=== PATIENT | male | born 1930 | race Asian ===

== ENCOUNTER 2016-05-23 23:35 | Emergency (ER) | payer MEDICARE, MEDICAID ==
[~2016-05-23] VITALS: Ht 154.9 cm; Wt 54.4 kg
[2016-05-23] MEDS ORDERED: SORBITOL2000 ML IR (23:47)
[2016-05-23] MEDS ORDERED: LATANOPROST2.5 ML BOTH EYES (23:47)
[2016-05-23] MEDS ORDERED: CALCIUM CARBON500 M1 PO (23:47)
[2016-05-23] MEDS ORDERED: LISINOPRIL5 MG ORAL (23:47)
[2016-05-23] MEDS ORDERED: ATORVASTATIN CA10 MG ORAL (23:47)
[2016-05-23] MEDS ORDERED: VITAMIN D400 INTLU ORAL (23:47)
[2016-05-23] MEDS ORDERED: COLACE100 MG ORAL (23:47)
[2016-05-23] MEDS ORDERED: HYDRALAZINE HCL10 MG ORAL (23:47)
[2016-05-23] MEDS ORDERED: METFORMIN HCL500 M1 ORAL (23:47)
[2016-05-24] MEDS ORDERED: Ketorolac 30mg Inj IV ONE
[2016-05-24 00:16] LABS: BASOPHILS % (AUTO) 0.6 % (0.0-2.0); EOSINOPHILS % (AUTO) 3.7 % (0.0-3.0); LYMPHOCYTES % (AUTO) 21.2 % (20.0-45.0); MEAN CORPUSCULAR VOLUME 87 FL (80-99); MEAN PLATELET VOLUME 5.8 FL (6.5-10.1); MONOCYTES % (AUTO) 12.2 % (1.0-10.0); NEUTROPHILS % (AUTO) 62.3 % (45.0-75.0); PLATELET COUNT 318 K/UL (150-450); RED BLOOD COUNT 4.19 M/UL (4.70-6.10); RED CELL DISTRIBUTION WIDTH 13.2 % (11.6-14.8); WHITE BLOOD COUNT 8.1 K/UL (4.8-10.8)
[2016-05-24 00:27] LABS: ALANINE AMINOTRANSFERASE 8 U/L (3-41); ALBUMIN/GLOBULIN RATIO 1.3 (1.0-2.7); ANION GAP 17 (5-15); ASPARTATE AMINO TRANSFERASE 11 U/L (5-40); CALCIUM 9.4 mg/dL (8.6-10.2); CARBON DIOXIDE 25 mEQ/L (20-30); CHLORIDE 96 mEQ/L (98-107); CREATININE 1.5 mg/dL (0.7-1.2); HEMOLYSIS 7; LIPASE 43 U/L (< 60); POTASSIUM 4.5 mEQ/L (3.4-4.9); SODIUM 138 mEQ/L (135-145)
[2016-05-24 01:01] VITALS: BP 147/87
[2016-05-24 01:24] LABS: APPEARANCE,URINE CLEAR; KETONES,URINE NEGATIVE (NEGATIVE); LEUKOCYTE ESTERASE ,URINE NEGATIVE (NEGATIVE); NITRITE,URINE NEGATIVE (NEGATIVE); PH,URINE 7 (4.5-8.0); PROTEIN,URINE 2+ (NEGATIVE); UROBILINOGEN,URINE NORMAL MG/DL (0.0-1.0)
--- NOTE | 2016-05-24 01:24 | Emergency Room Report ---
History of Present Illness General Chief Complaint: Abdominal Pain Source: Patient, Family Member, Medical Record, EMS Present Illness HPI This is an 85-year-old [place] male with a history of mild dementia. He presents with swelling to the right groin area. His been a chronic problem for many years but worse recently. He also has some pain. Denies any fever chills denies any nausea vomiting. No other complaint. When the son arrived he said patient is been having a mild cough the last few days. No fever or chills. Patient denies any complaint to me. Allergies: Coded Allergies: ATENOLOL (Verified Allergy, Unknown, 05/23/16) LOSARTAN (Verified Allergy, Unknown, 05/23/16) SIMVASTATIN (Verified Allergy, Unknown, 05/23/16) Uncoded Allergies: AMLIODIPINE (Allergy, Unknown, 05/23/16) PENICILLIN (Allergy, Unknown, 05/23/16) Patient History Past Medical History: see triage record, old chart reviewed Past Surgical History: other Pertinent Family History: none Social History: Denies: smoking Immunizations: other Reviewed Nursing Documentation: PMH: Agreed, PSxH: Agreed Nursing Documentation-PMH Hx Hypertension: Yes Hx Diabetes: Yes Review of Systems Eye: Denies: blurred vision, eye pain ENT: Denies: ear pain, nose congestion, throat swelling Respiratory: Denies: cough, shortness of breath Cardiovascular: Denies: chest pain, palpitations Gastrointestinal: Denies: abdominal pain, diarrhea, nausea, vomiting Musculoskeletal: Denies: back pain, joint pain Skin: Denies: rash Neurological: Denies: headache, numbness Endocrine: Denies: increased thirst, increased urine Hematologic/Lymphatic: Denies: easy bruising All Other Systems: negative except mentioned in HPI Physical Exam Vital Signs Date Time Temp Pulse Resp B/P Pulse Ox O2 Delivery O2 Flow Rate FiO2 05/23/16 23:37 98.4 78 16 162/83 96 Room Air vitals with hypertension Sp02 EP Interpretation: reviewed, normal General Appearance: well appearing, no apparent distress, alert Head: normocephalic, atraumatic Eyes: bilateral eye EOMI, bilateral eye PERRL ENT: hearing grossly normal, normal pharynx Neck: full range of motion, supple, no meningismus Respiratory: chest non-tender, lungs clear, normal breath sounds Cardiovascular #1: regular rate, rhythm, no murmur Gastrointestinal: normal bowel sounds, non tender, no mass, no organomegaly, no bruit, non-distended Genitourinary: other - Penis normal. Large right inguinal hernia. Easily reducible. Musculoskeletal: back normal, gait/station normal, normal range of motion Neurologic: alert, oriented x3 Psychiatric: mood/affect normal Skin: warm/dry Medical Decision Making Diagnostic Impression: Primary Impression: Inguinal hernia of right side without obstruction or gangrene Additional Impressions: Bronchitis Proteinuria ER Course Patient with reducible right inguinal hernia. Based on his age, he may not be a surgical candidate. This can be evaluated by a surgeon. He's not coughing here. Lungs are clear. No evidence of pneumonia. We'll discharge home. Lab Results Impression labs unremarkable Chest X-Ray Diagnostic Results EP Interpretation: Yes Findings: no consolidation, no effusion, no pneumothorax, no acute cardiopulmonary disease Number of Views: 1 Last Vital Signs Date Time Temp Pulse Resp B/P Pulse Ox O2 Delivery O2 Flow Rate FiO2 05/24/16 01:01 98.4 80 16 147/87 96 Room Air Status: improved Disposition: HOME, SELF-CARE Condition: Stable Referrals: KEITH SHARMA (PCP) Additional Instructions: Followup your Dr. in 7 days. You may need a referral to see a surgeon for possible surgery. Return if symptom worsen. JUANA KIM M.D. May 24, 2016 01:24
[2016-05-24 02:35] LABS: BACTERIA,URINE OCCASIONAL /HPF; RBC,URINE 0-2 /HPF (0 - 0); SQUAMOUS EPITHELIAL CELL,UR OCCASIONAL /LPF (NONE/OCC); WBC,URINE 0-2 /HPF (0 - 0)
[2016-05-24 03:05] VITALS: BP_SYST 143; BP_SYST 147; BP_DIAS 74; BP_DIAS 87
--- NOTE | 2016-05-24 10:08 | Diagnostic Imaging Report ---
Indication: Cough Comparison: None A single view chest radiograph was obtained. Findings: No definite infiltrate or pulmonary vascular congestion identified. The heart is enlarged. The aorta is mildly enlarged consistent with atherosclerotic vascular disease. The bones are osteopenic. Impression: No acute disease
== END 2016-05-24 03:09 | disposition home or self-care (01) ==
LOC: EDBD 23:35 → EMR 23:58
DX: K40.90 Unilateral inguinal hernia, without obstruction or gangrene, not specified as recurrent (principal); J40 Bronchitis, not specified as acute or chronic; R80.9 Proteinuria, unspecified; E11.9 Type 2 diabetes mellitus without complications; I10 Essential (primary) hypertension; Z88.8 Allergy status to other drugs, medicaments and biological substances; Z88.0 Allergy status to penicillin
CPT/HCPCS: 36415; 71010; 80053; 81003; 83690; 85025; 99283; J1885

== ENCOUNTER 2017-10-05 13:19 | Emergency (ER) | payer MEDICARE, MEDICAID ==
[~2017-10-05] VITALS: Ht 157.5 cm; Wt 68.0 kg
[2017-10-05 13:19] VITALS: BP 131/64
[~2017-10-05 13:19] MED LIST: ATORVASTATIN CA10 MG ORAL; CALCIUM CARBON500 M1 PO; COLACE100 MG ORAL; HYDRALAZINE HCL10 MG ORAL; LATANOPROST2.5 ML BOTH EYES; LISINOPRIL5 MG ORAL; METFORMIN HCL500 M1 ORAL; SORBITOL2000 ML IR; VITAMIN D400 INTLU ORAL
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
[2017-10-05 14:35] LABS: APPEARANCE,URINE CLOUDY; BILIRUBIN, URINE NEGATIVE (NEGATIVE); GLUCOSE, URINE (UA) NEGATIVE (NEGATIVE); KETONES,URINE NEGATIVE (NEGATIVE); LEUKOCYTE ESTERASE ,URINE 1+ (NEGATIVE); NITRITE,URINE NEGATIVE (NEGATIVE); PH,URINE 6 (4.5-8.0); PROTEIN,URINE 2+ (NEGATIVE); UROBILINOGEN,URINE NORMAL MG/DL (0.0-1.0)
[2017-10-05 14:37] LABS: COLOR,URINE RED
--- NOTE | 2017-10-05 14:48 | Diagnostic Imaging Report ---
Indication: Altered mental status Technique: Contiguous 5 mm thick transaxial imaging of the head obtained in a Siemens Sensation [address] scanner. Soft tissue and bone windows generated. Automatic Exposure Control was utilized. Total Dose length Product (DLP): 1728.[address] Dose Index Volume (CTDIvol): 70.38,13.06 mGy Comparison: none Findings: There is moderate prominence of the ventricles, basal cisterns, and cerebral sulci consistent with atrophy. Moderate, nonspecific, white matter hypoattenuation is noted throughout the brain consistent with chronic small vessel disease. There is no midline shift, edema, acute hemorrhage, mass effect, or abnormal extra-axial fluid collections. Bones and extra osseous soft tissues are unremarkable. Mucosal thickening demonstrated in the paranasal sinuses. Impression: No acute intracranial bleed, mass effect or edema. Moderate atrophy of the brain. Evidence of chronic small vessel disease involving white matter tracts. Sinusitis The CT scanner at [facility] is accredited by the [employer] and the scans are performed using dose optimization techniques as appropriate to a performed exam including Automatic Exposure control.
--- NOTE | 2017-10-05 14:58 | Diagnostic Imaging Report ---
Indication: Neck pain. Technique: Continuous helical imaging of the cervical spine was obtained transaxially from the skull base to the upper thoracic spine. 2-D coronal and sagittal reformatted images were obtained. Automatic Exposure Control was utilized. Total Dose length Product (DLP): 1728.[address] Dose Index Volume (CTDIvol): 70.38,13.06 mGy Comparison: None Findings: There is no acute fracture or malalignment identified. There is no soft tissue swelling identified. 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 Some of the intervertebral discs show narrowing and osteophytes. Degenerative changes are worst at C5-6 C6-7 and C7-T1. Follow-up MRI may be of benefit. Extensive carotid calcifications are present bilaterally. Loss of cervical lordosis. Mild anterolistheses demonstrated at C3-4 and C4-5. Impression: No acute injury Moderate spondylosis. Follow-up MRI may be of benefit. The CT scanner at [facility] is accredited by the [employer] and the scans are performed using dose optimization techniques as appropriate to a performed exam including Automatic Exposure control.
[2017-10-05 15:00] VITALS: BP 132/62
[2017-10-05 17:00] VITALS: BP 147/78
[2017-10-05 19:00] VITALS: BP 103/60
[2017-10-05 20:12] VITALS: BP 108/50
[2017-10-05 20:15] VITALS: BP 108/50
== END 2017-10-05 20:15 ==
LOC: EDBD 13:19 → EMR 13:40
DX: S09.8XXA Other specified injuries of head, initial encounter (principal); W19.XXXA Unspecified fall, initial encounter; Y92.129 Unspecified place in nursing home as the place of occurrence of the external cause; I10 Essential (primary) hypertension; E11.9 Type 2 diabetes mellitus without complications; F03.90 Unspecified dementia, unspecified severity, without behavioral disturbance, psychotic disturbance, mood disturbance, and anxiety; Z88.0 Allergy status to penicillin; Z88.8 Allergy status to other drugs, medicaments and biological substances
CPT/HCPCS: 70450; 72125; 81003; 99284

== ENCOUNTER 2019-11-03 14:35 | Inpatient (IN) | payer MEDICARE, OTHER ==
[~2019-11-03] VITALS: Ht 182.9 cm; Wt 42.6 kg
[2019-11-03 15:01] VITALS: BP 131/81
[2019-11-03] MEDS ORDERED: NAMENDA5 MG ORAL (15:36)
[2019-11-03] MEDS ORDERED: ASPIRIN81 MG ORAL (15:36)
[2019-11-03] MEDS ORDERED: SENNA LAXATIVE8.6 MG PO (15:36)
[2019-11-03] MEDS ORDERED: HUMALOG100 UNIT/4 SUBQ (15:36)
[2019-11-03 15:45] LABS: BILIRUBIN, URINE NEGATIVE (NEGATIVE); COLOR,URINE PALE YELLOW; GLUCOSE, URINE (UA) NEGATIVE (NEGATIVE); KETONES,URINE NEGATIVE (NEGATIVE); LEUKOCYTE ESTERASE ,URINE NEGATIVE (NEGATIVE); NITRITE,URINE POSITIVE (NEGATIVE); PH,URINE 5 (4.5-8.0); PROTEIN,URINE 2+ (NEGATIVE); UROBILINOGEN,URINE NORMAL MG/DL (0.0-1.0)
[2019-11-03 15:47] LABS: BASOPHILS % (AUTO) 0.5 % (0.0-2.0); EOSINOPHILS % (AUTO) 2.8 % (0.0-3.0); HEMATOCRIT 32.6 % (42.0-52.0); HEMOGLOBIN 10.4 G/DL (14.2-18.0); LYMPHOCYTES % (AUTO) 13.7 % (20.0-45.0); MEAN CORPUSCULAR VOLUME 88 FL (80-99); MONOCYTES % (AUTO) 6.6 % (1.0-10.0); NEUTROPHILS % (AUTO) 76.4 % (45.0-75.0); PLATELET COUNT 353 K/UL (150-450); RED CELL DISTRIBUTION WIDTH 13.7 % (11.6-14.8); WHITE BLOOD COUNT 7.3 K/UL (4.8-10.8)
[2019-11-03 15:53] LABS: APPEARANCE,URINE CLEAR
[2019-11-03 15:55] LABS: INR 0.9 (0.9-1.1)
[2019-11-03 15:57] LABS: ANION GAP 10 mmol/L (5-15); BLOOD UREA NITROGEN 57 mg/dL (7-18); CALCIUM 9.1 MG/DL (8.5-10.1); CARBON DIOXIDE 25 MMOL/L (21-32); CHLORIDE 98 MMOL/L (98-107); CREATININE 1.8 MG/DL (0.55-1.30); POTASSIUM 4.9 MMOL/L (3.5-5.1); SODIUM 133 MMOL/L (136-145)
[2019-11-03 16:14] LABS: ALANINE AMINOTRANSFERASE 13 U/L (12-78); ALBUMIN 3.5 G/DL (3.4-5.0); ALBUMIN/GLOBULIN RATIO 0.9 (1.0-2.7); ALKALINE PHOSPHATASE 85 U/L (46-116); ASPARTATE AMINO TRANSFERASE 14 U/L (15-37); BILIRUBIN,TOTAL 0.2 MG/DL (0.2-1.0); FERRITIN 149 NG/ML (8-388)
--- NOTE | 2019-11-03 16:19 | Diagnostic Imaging Report ---
Indication: Syncope Technique: XRAY Chest 1v Comparison: 05/24/2016 Findings: Heart size within normal limits for AP technique and stable compared to the prior exam. Mediastinal contours are sharp. There are dense atherosclerotic calcifications in the aorta. Probable mitral annular calcifications are also seen. Coronary arterial calcifications are noted. No dense focal consolidation is appreciated. No pleural effusion or pneumothorax. No radiographic evidence to suggest pulmonary edema. Bones are demineralized and there are degenerative changes in the spine. No acute osseous abnormality. Impression: No definite radiographic evidence of acute cardiopulmonary disease. Atherosclerotic disease and coronary arterial calcification.
--- NOTE | 2019-11-03 16:58 | Emergency Room Report ---
History of Present Illness General Chief Complaint: Syncope Source: Medical Record, EMS Present Illness HPI 88-year-old male presents the ED status post syncopal episode. Brought in by EMS from senior care facility. Witnessed syncopal episode while in bathroom. No head injury. Patient hypotensive initially. Given IV fluids. BP improved. Patient limited communication but can state his name. Denies pain. Does not appear in distress. No reported fevers or chills. No other aggravating relieving factors. 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 COVID-19 Screening: Negative COVID-19 COVID-19 Testing Source: 10/20/19 Patient History Past Medical History: DM, HTN Past Surgical History: none Pertinent Family History: none Social History: Denies: smoking, alcohol use, drug use Immunizations: UTD Reviewed Nursing Documentation: PMH: Agreed; PSxH: Agreed Nursing Documentation-PMH Past Medical History: No History, Except For Hx Hypertension: Yes Hx Diabetes: Yes Review of Systems All Other Systems: negative except mentioned in HPI Physical Exam Vital Signs Date Time Temp Pulse Resp B/P (MAP) Pulse Ox O2 Delivery O2 Flow Rate FiO2 11/03/19 14:36 98.1 80 18 126/84 (98) 100 Room Air Sp02 EP Interpretation: reviewed, normal General Appearance: no apparent distress, GCS 15, non-toxic, cachetic Head: normocephalic, atraumatic Eyes: bilateral eye normal inspection, bilateral eye PERRL ENT: hearing grossly normal, normal pharynx, no angioedema, normal voice Neck: full range of motion, supple/symm/no masses Respiratory: chest non-tender, lungs clear, normal breath sounds, speaking full sentences Cardiovascular #1: regular rate, rhythm, no edema Cardiovascular #2: 2+ carotid (R), 2+ carotid (L), 2+ radial (R), 2+ radial (L) , 2+ dorsalis pedis (R), 2+ dorsalis pedis (L) Gastrointestinal: normal bowel sounds, non tender, soft, non-distended, no guarding, no rebound Rectal: deferred Genitourinary: normal inspection, no CVA tenderness Musculoskeletal: back normal, normal range of motion, gait/station normal, non- tender Neurologic: alert, motor strength/tone normal, oriented x3, sensory intact, responsive, speech normal Psychiatric: other - nonverbal Reflexes: 3+ bicep (R), 3+ bicep (L), 3+ tricep (R), 3+ tricep (L), 3+ knee (R) , 3+ knee (L) Skin: other - see nursing notes Lymphatic: no adenopathy Medical Decision Making Diagnostic Impression: Primary Impression: Syncope Qualified Codes: R55 - Syncope and collapse Additional Impressions: Renal insufficiency UTI (urinary tract infection) Qualified Codes: N39.0 - Urinary tract infection, site not specified ER Course Hospital Course 88-year-old M presents ED s/p syncopal episode. iinitially hypotensive and improved with IVFs Differential diagnoses include: WI/unstable angina, arrythmia, dehydration Clinical course Patient placed on stretcher. on monitor and storage bin tender. in isolation. i wore full PPE. After initial history and physical I ordered labs, EKG, chest x-ray, IVFs labs reviewed- no leukocytosis, hemoglobin/hematocrit ok, BUN/Cr eleavted, trop negatie, UA + bacteria, lactic 2 COVID negative EKG- afib no acute ischemic changes interpreted by me Chest x-ray- no acute process Patient's BP stable during ED course. Given IV fluids. Given maintenance fluids. Given antibiotics. Case discussed with Dr. Spencer and he agreed to accept the patient to his service for further care and support I. I feel this is a highly complex case requiring extensive working including EKG/Rhythm strip, Xray/CT/US, Blood/urine lab work, repeat exams while in ED, and administration of strong opiates/narcotics for pain control, admission to hospital or close patient follow up. Diagnosis - syncope, renal insufficiency, UTI admitted to telemetry in serious condition Laboratory Tests Test 11/03/19 15:25 White Blood Count 7.3 K/UL (4.8-10.8) Red Blood Count 3.70 M/UL (4.70-6.10) L Hemoglobin 10.4 G/DL (14.2-18.0) L Hematocrit 32.6 % (42.0-52.0) L Mean Corpuscular Volume 88 FL (80-99) Mean Corpuscular Hemoglobin 28.0 PG (27.0-31.0) Mean Corpuscular Hemoglobin Concent 31.9 G/DL (32.0-36.0) L Red Cell Distribution Width 13.7 % (11.6-14.8) Platelet Count 353 K/UL (150-450) Mean Platelet Volume 5.4 FL (6.5-10.1) L Neutrophils (%) (Auto) 76.4 % (45.0-75.0) H Lymphocytes (%) (Auto) 13.7 % (20.0-45.0) L Monocytes (%) (Auto) 6.6 % (1.0-10.0) Eosinophils (%) (Auto) 2.8 % (0.0-3.0) Basophils (%) (Auto) 0.5 % (0.0-2.0) Prothrombin Time 10.5 SEC (9.30-11.50) Prothromb Time International Ratio 0.9 (0.9-1.1) Activated Partial Thromboplast Time 27 SEC (23-33) D-Dimer 1.78 mg/L FEU (0.00-0.49) H Urine Color Pale yellow Urine Appearance Clear Urine pH 5 (4.5-8.0) Urine Specific [place] 1.020 (1.005-1.035) Urine Protein 2+ (NEGATIVE) H Urine Glucose (UA) Negative (NEGATIVE) Urine Ketones Negative (NEGATIVE) Urine Blood 1+ (NEGATIVE) H Urine Nitrite Positive (NEGATIVE) H Urine Bilirubin Negative (NEGATIVE) Urine Urobilinogen Normal MG/DL (0.0-1.0) Urine Leukocyte Esterase Negative (NEGATIVE) Urine RBC 0-2 /HPF (0 - 0) H Urine WBC 0 /HPF (0 - 0) Urine Squamous Epithelial Cells Occasional /LPF Urine Bacteria Occasional /HPF (NONE) Sodium Level 133 MMOL/L (136-145) L Potassium Level 4.9 MMOL/L (3.5-5.1) Chloride Level 98 MMOL/L (98-107) Carbon Dioxide Level 25 MMOL/L (21-32) Anion Gap 10 mmol/L (5-15) Blood Urea Nitrogen 57 mg/dL (7-18) H Creatinine 1.8 MG/DL (0.55-1.30) H Estimat Glomerular Filtration Rate 35.9 mL/min (>60) Glucose Level 179 MG/DL (74-106) H Lactic Acid Level 2.00 mmol/L (0.4-2.0) Calcium Level 9.1 MG/DL (8.5-10.1) Ferritin 149 NG/ML (8-388) Total Bilirubin 0.2 MG/DL (0.2-1.0) Aspartate Amino Transf (AST/SGOT) 14 U/L (15-37) L Alanine Aminotransferase (ALT/SGPT) 13 U/L (12-78) Alkaline Phosphatase 85 U/L (46-116) Troponin I 0.013 ng/mL (0.000-0.056) C-Reactive Protein, Quantitative < 0.4 mg/dL (0.00-0.90) Pro-B-Type Natriuretic Peptide 950 pg/mL (0-125) H Total Protein 7.3 G/DL (6.4-8.2) Albumin 3.5 G/DL (3.4-5.0) Globulin 3.8 g/dL Albumin/Globulin Ratio 0.9 (1.0-2.7) L EKG Diagnostic Results Rate: normal Rhythm: other - afib ST Segments: no acute changes ASA given to the pt in ED: No Rhythm Strip Diag. Results EP Interpretation: yes Rhythm: no PVC's, no ectopy Chest X-Ray Diagnostic Results Chest X-Ray Diagnostic Results : Chest X-Ray Ordered: Yes # of Views/Limited/Complete: 1 View Indication: Other EP Interpretation: Yes Interpretation: no consolidation, no effusion, no pneumothorax, no acute cardiopulmonary disease Impression: No acute disease Electronically Signed by: Electronically signed by Jose J Vásquez MD Last Vital Signs Date Time Temp Pulse Resp B/P (MAP) Pulse Ox O2 Delivery O2 Flow Rate FiO2 11/03/19 15:01 98.3 74 18 131/81 99 Room Air Status: improved Disposition: ADMITTED INPATIENT Condition: Serious Referrals: Darren Spencer MD (PCP) Jose J Vásquez MD Nov 03, 2019 16:58
[2019-11-03] MEDS ORDERED: Albuterol/Ipratropium 3ml neb HHN PRN (17:45)
[2019-11-03] MEDS: Memantine 5 MG TAB ORAL SCH (18:07)
[2019-11-03 18:38] VITALS: BP 121/60
[2019-11-03 20:00] VITALS: BP 129/72
[2019-11-03] MEDS ORDERED: Vancomycin 1.25gm/NS Premix q24h IVPB SCH (20:00)
[2019-11-03] MEDS: NovoLOG Insulin Flexpen SUBQ SCH (20:23)
[2019-11-03] MEDS: Heparin 5000 units/ml inj SUBQ SCH (20:31)
[2019-11-03] MEDS ORDERED: Cefepime HCl 2 GM in D5W 110 ML IV SCH (21:00)
[2019-11-04] VITALS: BP 112/70
[2019-11-04] MEDS ORDERED: Vancomycin 1 GM in D5W 275 ML IV SCH (00:30)
[2019-11-04 04:00] VITALS: BP 154/65
[2019-11-04] MEDS: NovoLOG Insulin Flexpen SUBQ SCH ×4 (05:24→21:40)
[2019-11-04 07:32] LABS: BASOPHILS % (AUTO) 1.1 % (0.0-2.0); HEMATOCRIT 34.8 % (42.0-52.0); HEMOGLOBIN 10.9 G/DL (14.2-18.0); LYMPHOCYTES % (AUTO) 21.4 % (20.0-45.0); MEAN CORPUSCULAR VOLUME 89 FL (80-99); MONOCYTES % (AUTO) 8.3 % (1.0-10.0); NEUTROPHILS % (AUTO) 65.3 % (45.0-75.0); PLATELET COUNT 349 K/UL (150-450); RED BLOOD COUNT 3.92 M/UL (4.70-6.10); RED CELL DISTRIBUTION WIDTH 13.3 % (11.6-14.8); WHITE BLOOD COUNT 6.2 K/UL (4.8-10.8)
[2019-11-04 08:00] VITALS: BP 133/67
[2019-11-04 08:19] LABS: ALANINE AMINOTRANSFERASE 19 U/L (12-78); ALBUMIN 3.3 G/DL (3.4-5.0); ALBUMIN/GLOBULIN RATIO 0.8 (1.0-2.7); ALKALINE PHOSPHATASE 80 U/L (46-116); ANION GAP 11 mmol/L (5-15); ASPARTATE AMINO TRANSFERASE 18 U/L (15-37); BILIRUBIN,TOTAL 0.3 MG/DL (0.2-1.0); BLOOD UREA NITROGEN 39 mg/dL (7-18); CALCIUM 8.7 MG/DL (8.5-10.1); CARBON DIOXIDE 21 MMOL/L (21-32); CHLORIDE 105 MMOL/L (98-107); CREATININE 1.6 MG/DL (0.55-1.30); POTASSIUM 4.8 MMOL/L (3.5-5.1); SODIUM 137 MMOL/L (136-145)
[2019-11-04] MEDS: Heparin 5000 units/ml inj SUBQ SCH ×2 (09:11→21:39)
[2019-11-04] MEDS: Memantine 5 MG TAB ORAL SCH ×2 (09:14→18:05)
[2019-11-04 12:00] VITALS: BP 148/78
--- NOTE | 2019-11-04 12:02 | Consultation ---
History of Present Illness General Date patient seen: Nov 04, 2019 Chief Complaint: Syncope Present Illness HPI 88-year-old male with hx of DM, HTN, custodial resident presented to the ED after and syncopal episode. Witnessed syncopal episode while in bathroom. No head injury. Patient was hypotensive initially. BP improved with IV fluids. No other aggravating relieving factors. Pt was found to be dehydrated and is admitted to telemetry for further management. Allergies: Coded Allergies: ATENOLOL (Verified Allergy, Unknown, 05/23/16) LOSARTAN (Verified Allergy, Unknown, 05/23/16) SIMVASTATIN (Verified Allergy, Unknown, 05/23/16) Uncoded Allergies: AMLIODIPINE (Allergy, Unknown, 05/23/16) PENICILLIN (Allergy, Unknown, 05/23/16) Medication History Scheduled Aspirin* (Aspirin*), 81 MG ORAL DAILY, (Reported) Atorvastatin Calcium* (Lipitor*), 10 MG ORAL BEDTIME, (Reported) Docusate Sodium* (Colace*), 250 MG ORAL DAILY, (Reported) Hydralazine Hcl* (Hydralazine Hcl*), 10 MG ORAL EVERY 6 HOURS, (Reported) Latanoprost* (Xalatan*), 1 DROP BOTH EYES BEDTIME, (Reported) Lisinopril (Lisinopril*), 5 MG ORAL DAILY, (Reported) Memantine Hcl* (Namenda*), 5 MG ORAL TWICE A DAY, (Reported) Metformin Hcl* (Metformin Hcl*), 500 MG ORAL TWICE A DAY, (Reported) Sennosides (Senna Laxative), 17.2 MG PO DAILY, (Reported) Vitamin D (Vitamin D3), 1,000 UNITS ORAL DAILY, (Reported) Miscellaneous Medications Calcium Carbonate (Calcium Carbonate), 500 MG PO, (Reported) Insulin Lispro (Humalog), 0 SUBQ, (Reported) Sorbitol Solution (Sorbitol), 2,000 ML IR, (Reported) Patient History Healthcare decision maker N Resuscitation status Advanced Directive on File Past Medical/Surgical History Past Medical/Surgical History: (1) History of hypertension (2) History of diabetes mellitus Review of Systems All Other Systems: negative except mentioned in HPI Physical Exam General Appearance: thin Lines, tubes and drains: peripheral HEENT: normocephalic, atraumatic Neck: non-tender, normal alignment, supple, normal inspection Respiratory/Chest: chest wall non-tender, lungs clear, no respiratory distress , no accessory muscle use Cardiovascular/Chest: normal peripheral pulses, regular rhythm Abdomen: normal bowel sounds, no organomegaly, no mass Extremities: normal range of motion, non-tender Skin Exam: normal pigmentation, warm/dry 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, no motor/sensory deficits Last 24 Hour Vital Signs Date Time Temp Pulse Resp B/P (MAP) Pulse Ox O2 Delivery O2 Flow Rate FiO2 11/04/19 09:00 Room Air 11/04/19 08:00 97.5 78 20 133/67 (89) 99 11/04/19 07:28 65 11/04/19 04:00 64 11/04/19 04:00 97.9 82 19 154/65 (94) 99 11/04/19 00:00 72 11/04/19 00:00 99.1 86 19 112/70 (84) 97 11/03/19 23:54 Room Air 11/03/19 20:00 74 11/03/19 20:00 97.5 94 19 129/72 (91) 98 11/03/19 18:38 97.9 83 20 121/60 (80) 100 11/03/19 17:58 97.8 79 18 135/85 98 Room Air 11/03/19 15:01 98.3 74 18 131/81 99 Room Air 11/03/19 14:36 98.1 80 18 126/84 (98) 100 Room Air Intake and Output 11/03/19 11/04/19 19:00 07:00 Output Total 200 ml Balance -200 ml Output Urine Total 200 ml Laboratory Tests Test 11/03/19 15:01 11/03/19 15:25 11/03/19 20:20 11/03/19 21:40 Erythrocyte Sedimentation Rate 105 MM/HR (0-20) H White Blood Count 7.3 K/UL (4.8-10.8) Red Blood Count 3.70 M/UL (4.70-6.10) L Hemoglobin 10.4 G/DL (14.2-18.0) L Hematocrit 32.6 % (42.0-52.0) L Mean Corpuscular Volume 88 FL (80-99) Mean Corpuscular Hemoglobin 28.0 PG (27.0-31.0) Mean Corpuscular Hemoglobin Concent 31.9 G/DL (32.0-36.0) L Red Cell Distribution Width 13.7 % (11.6-14.8) Platelet Count 353 K/UL (150-450) Mean Platelet Volume 5.4 FL (6.5-10.1) L Neutrophils (%) (Auto) 76.4 % (45.0-75.0) H Lymphocytes (%) (Auto) 13.7 % (20.0-45.0) L Monocytes (%) (Auto) 6.6 % (1.0-10.0) Eosinophils (%) (Auto) 2.8 % (0.0-3.0) Basophils (%) (Auto) 0.5 % (0.0-2.0) Prothrombin Time 10.5 SEC (9.30-11.50) Prothromb Time International Ratio 0.9 (0.9-1.1) Activated Partial Thromboplast Time 27 SEC (23-33) D-Dimer 1.78 mg/L FEU (0.00-0.49) H Urine Color Pale yellow Pending Urine Appearance Clear Pending Urine pH 5 (4.5-8.0) Pending Urine Specific [place] 1.020 (1.005-1.035) Pending Urine Protein 2+ (NEGATIVE) H Pending Urine Glucose (UA) Negative (NEGATIVE) Pending Urine Ketones Negative (NEGATIVE) Pending Urine Blood 1+ (NEGATIVE) H Pending Urine Nitrite Positive (NEGATIVE) H Pending Urine Bilirubin Negative (NEGATIVE) Pending Urine Urobilinogen Normal MG/DL (0.0-1.0) Pending Urine Leukocyte Esterase Negative (NEGATIVE) Pending Urine RBC 0-2 /HPF (0 - 0) H Pending Urine WBC 0 /HPF (0 - 0) Pending Urine Squamous Epithelial Cells Occasional /LPF Pending Urine Bacteria Occasional /HPF (NONE) Pending Sodium Level 133 MMOL/L (136-145) L Potassium Level 4.9 MMOL/L (3.5-5.1) Chloride Level 98 MMOL/L (98-107) Carbon Dioxide Level 25 MMOL/L (21-32) Anion Gap 10 mmol/L (5-15) Blood Urea Nitrogen 57 mg/dL (7-18) H Creatinine 1.8 MG/DL (0.55-1.30) H Estimat Glomerular Filtration Rate 35.9 mL/min (>60) Glucose Level 179 MG/DL (74-106) H Lactic Acid Level 2.00 mmol/L (0.4-2.0) Calcium Level 9.1 MG/DL (8.5-10.1) Ferritin 149 NG/ML (8-388) Total Bilirubin 0.2 MG/DL (0.2-1.0) Aspartate Amino Transf (AST/SGOT) 14 U/L (15-37) L Alanine Aminotransferase (ALT/SGPT) 13 U/L (12-78) Alkaline Phosphatase 85 U/L (46-116) Troponin I 0.013 ng/mL (0.000-0.056) C-Reactive Protein, Quantitative < 0.4 mg/dL (0.00-0.90) Pro-B-Type Natriuretic Peptide 950 pg/mL (0-125) H Total Protein 7.3 G/DL (6.4-8.2) Albumin 3.5 G/DL (3.4-5.0) Globulin 3.8 g/dL Albumin/Globulin Ratio 0.9 (1.0-2.7) L POC Whole Blood Glucose Pending Test 11/04/19 05:22 11/04/19 06:37 11/04/19 07:10 11/04/19 11:27 POC Whole Blood Glucose Pending 101 MG/DL (74-106) White Blood Count 6.2 K/UL (4.8-10.8) Red Blood Count 3.92 M/UL (4.70-6.10) L Hemoglobin 10.9 G/DL (14.2-18.0) L Hematocrit 34.8 % (42.0-52.0) L Mean Corpuscular Volume 89 FL (80-99) Mean Corpuscular Hemoglobin 27.7 PG (27.0-31.0) Mean Corpuscular Hemoglobin Concent 31.3 G/DL (32.0-36.0) L Red Cell Distribution Width 13.3 % (11.6-14.8) Platelet Count 349 K/UL (150-450) Mean Platelet Volume 4.8 FL (6.5-10.1) L Neutrophils (%) (Auto) 65.3 % (45.0-75.0) Lymphocytes (%) (Auto) 21.4 % (20.0-45.0) Monocytes (%) (Auto) 8.3 % (1.0-10.0) Eosinophils (%) (Auto) 4.0 % (0.0-3.0) H Basophils (%) (Auto) 1.1 % (0.0-2.0) Sodium Level 137 MMOL/L (136-145) Potassium Level 4.8 MMOL/L (3.5-5.1) Chloride Level 105 MMOL/L (98-107) Carbon Dioxide Level 21 MMOL/L (21-32) Anion Gap 11 mmol/L (5-15) Blood Urea Nitrogen 39 mg/dL (7-18) H Creatinine 1.6 MG/DL (0.55-1.30) H Estimat Glomerular Filtration Rate 41.1 mL/min (>60) Glucose Level 95 MG/DL (74-106) Uric Acid Pending Calcium Level 8.7 MG/DL (8.5-10.1) Total Bilirubin 0.3 MG/DL (0.2-1.0) Aspartate Amino Transf (AST/SGOT) 18 U/L (15-37) Alanine Aminotransferase (ALT/SGPT) 19 U/L (12-78) Alkaline Phosphatase 80 U/L (46-116) Total Creatine Kinase Pending Total Protein 7.3 G/DL (6.4-8.2) Albumin 3.3 G/DL (3.4-5.0) L Globulin 4.0 g/dL Albumin/Globulin Ratio 0.8 (1.0-2.7) L Random Vancomycin Level 16.4 ug/mL Test 11/04/19 11:50 Random Vancomycin Level Pending Microbiology Date/Time Source Procedure Growth Status 11/03/19 15:25 Nasopharynx SARS-CoV-2 RdRp Gene Assay - Final Complete 11/03/19 15:25 Rectum Received Height (Feet): 6 Height (Inches): 0.00 Weight (Pounds): 160 Medications Current Medications Medications (Trade) Dose Ordered Sig/James Route PRN Reason Start Time Stop Time Status Last Admin Dose Admin Acetaminophen (Tylenol) 650 mg Q4H PRN ORAL fever 11/03/19 17:45 12/03/19 17:44 Albuterol/ Ipratropium (Albuterol/ Ipratropium) 3 ml Q4H PRN HHN Shortness of Breath 11/03/19 17:45 11/08/19 17:44 Dextrose (Dextrose 50%) 25 ml Q30M PRN IV Hypoglycemia 11/03/19 18:00 02/01/20 17:59 Dextrose (Dextrose 50%) 50 ml Q30M PRN IV Hypoglycemia 11/03/19 18:00 02/01/20 17:59 Heparin Sodium (Porcine) (Heparin 5000 units/ml) 5,000 units EVERY 12 HOURS SUBQ 11/03/19 21:00 12/18/19 20:59 11/04/19 09:11 Insulin Aspart (NovoLOG) BEFORE MEALS AND HS SUBQ 11/03/19 21:00 02/01/20 20:59 Levofloxacin 50 ml @ 50 mls/hr Q24H IVPB 11/04/19 16:00 11/11/19 15:59 Memantine (Namenda) 5 mg TWICE A DAY ORAL 11/03/19 18:00 12/03/19 17:59 11/04/19 09:14 Ondansetron HCl (Zofran) 4 mg Q6H PRN IVP Nausea & Vomiting 11/03/19 17:45 12/03/19 17:44 Sodium Chloride 1,000 ml @ 100 mls/hr Q10H IV 11/03/19 18:00 12/03/19 17:59 11/03/19 18:05 Temazepam (Restoril) 15 mg HSPRN PRN ORAL Insomnia 11/03/19 17:45 11/10/19 17:44 Vancomycin HCl ([facility] pharmacy to dose) 1 ea DAILY PRN MISC . 11/03/19 18:00 12/03/19 17:59 Vancomycin HCl 750 mg/Sodium Chloride 275 ml @ 183.333 mls/hr ONCE ONCE IVPB 11/04/19 16:00 11/04/19 17:29 Assessment/Plan Problem List: (1) Acute dehydration ICD Codes: E86.0 - Dehydration SNOMED: 0374397, 89315184 (2) Syncope ICD Codes: R55 - Syncope and collapse SNOMED: 293848957, 592601902 Qualifiers: Qualified Codes: R55 - Syncope and collapse (3) History of hypertension ICD Codes: Z86.79 - Personal history of other diseases of the circulatory system SNOMED: 822869470 (4) History of diabetes mellitus ICD Codes: Z86.39 - Personal history of other endocrine, nutritional and metabolic disease SNOMED: 770752099 Assessment/Plan: telemetry monitoring echocardiogram, carotid artery iv hydration fall precaution check electrolytes Cherelle Vera MD Nov 04, 2019 12:02
[2019-11-04 12:10] LABS: CREATINE KINASE 76 U/L (26-308)
--- NOTE | 2019-11-04 13:19 | Diagnostic Imaging Report ---
EXAM: ULTRASOUND US Renal Comp CLINICAL HISTORY: Abnormal renal function. Abdominal discomfort. COMPARISON: None TECHNIQUE: Ultrasound examination of the kidneys includes grayscale images, and color and spectral doppler analysis. FINDINGS: The right kidney measures 8.8 x 3.6 x 3.8 cm and the left kidney measures 7.9 x 4.3 x 3.4 cm. Cortical thickness and echogenicity are within normal limits. There is no hydronephrosis or stone seen bilaterally. Hypoechoic cyst identified at the upper pole of the left kidney. Urinary bladder appears unremarkable. IMPRESSION: LEFT RENAL CYST. NO SIGN OF OBSTRUCTIVE UROPATHY.
[2019-11-04 14:27] LABS: APPEARANCE,URINE CLEAR; BILIRUBIN, URINE NEGATIVE (NEGATIVE); COLOR,URINE PALE YELLOW; GLUCOSE, URINE (UA) NEGATIVE (NEGATIVE); KETONES,URINE NEGATIVE (NEGATIVE); LEUKOCYTE ESTERASE ,URINE NEGATIVE (NEGATIVE); NITRITE,URINE NEGATIVE (NEGATIVE); PH,URINE 5 (4.5-8.0); PROTEIN,URINE NEGATIVE (NEGATIVE); UROBILINOGEN,URINE NORMAL MG/DL (0.0-1.0)
[2019-11-04 16:00] VITALS: BP 125/64
[2019-11-04] MEDS ORDERED: Vancomycin 750mg/NS 275ml IVPB ONE ×2 (16:00)
[2019-11-04] MEDS: Levofloxacin 250mg/D5W 50ml IVPB SCH (17:03)
--- NOTE | 2019-11-04 17:06 | History & Physical ---
History and Physical History & Physicial Dictated for Int Med-Dr Spencer no. [id number] Darren Pineda MD Nov 04, 2019 17:06
--- NOTE | 2019-11-04 17:42 | Cardiology Progress Note ---
Assessment/Plan Assessment/Plan syncoep possibley voluem related will need echo and trop repeated ekg nto changed need head ct in light recednt fall will recent sdh [id number] Objective Last 24 Hour Vital Signs Date Time Temp Pulse Resp B/P (MAP) Pulse Ox O2 Delivery O2 Flow Rate FiO2 11/04/19 15:16 77 20 99 Room Air 21 11/04/19 12:00 89 11/04/19 12:00 97.7 84 18 148/78 (101) 100 11/04/19 09:00 Room Air 11/04/19 08:00 97.5 78 20 133/67 (89) 99 11/04/19 07:28 65 11/04/19 04:00 64 11/04/19 04:00 97.9 82 19 154/65 (94) 99 11/04/19 00:00 72 11/04/19 00:00 99.1 86 19 112/70 (84) 97 11/03/19 23:54 Room Air 11/03/19 20:00 74 11/03/19 20:00 97.5 94 19 129/72 (91) 98 11/03/19 18:38 97.9 83 20 121/60 (80) 100 11/03/19 17:58 97.8 79 18 135/85 98 Room Air Intake and Output 11/03/19 11/04/19 19:00 07:00 Output Total 200 ml Balance -200 ml Output Urine Total 200 ml Laboratory Tests Test 11/03/19 20:20 11/03/19 21:40 11/04/19 05:22 11/04/19 06:37 POC Whole Blood Glucose Pending Pending Urine Color Pending Urine Appearance Pending Urine pH Pending Urine Specific [place] Pending Urine Protein Pending Urine Glucose (UA) Pending Urine Ketones Pending Urine Blood Pending Urine Nitrite Pending Urine Bilirubin Pending Urine Urobilinogen Pending Urine Leukocyte Esterase Pending Urine RBC Pending Urine WBC Pending Urine Squamous Epithelial Cells Pending Urine Bacteria Pending White Blood Count 6.2 K/UL (4.8-10.8) Red Blood Count 3.92 M/UL (4.70-6.10) L Hemoglobin 10.9 G/DL (14.2-18.0) L Hematocrit 34.8 % (42.0-52.0) L Mean Corpuscular Volume 89 FL (80-99) Mean Corpuscular Hemoglobin 27.7 PG (27.0-31.0) Mean Corpuscular Hemoglobin Concent 31.3 G/DL (32.0-36.0) L Red Cell Distribution Width 13.3 % (11.6-14.8) Platelet Count 349 K/UL (150-450) Mean Platelet Volume 4.8 FL (6.5-10.1) L Neutrophils (%) (Auto) 65.3 % (45.0-75.0) Lymphocytes (%) (Auto) 21.4 % (20.0-45.0) Monocytes (%) (Auto) 8.3 % (1.0-10.0) Eosinophils (%) (Auto) 4.0 % (0.0-3.0) H Basophils (%) (Auto) 1.1 % (0.0-2.0) Sodium Level 137 MMOL/L (136-145) Potassium Level 4.8 MMOL/L (3.5-5.1) Chloride Level 105 MMOL/L (98-107) Carbon Dioxide Level 21 MMOL/L (21-32) Anion Gap 11 mmol/L (5-15) Blood Urea Nitrogen 39 mg/dL (7-18) H Creatinine 1.6 MG/DL (0.55-1.30) H Estimat Glomerular Filtration Rate 41.1 mL/min (>60) Glucose Level 95 MG/DL (74-106) Uric Acid 5.7 MG/DL (2.6-7.2) Calcium Level 8.7 MG/DL (8.5-10.1) Total Bilirubin 0.3 MG/DL (0.2-1.0) Aspartate Amino Transf (AST/SGOT) 18 U/L (15-37) Alanine Aminotransferase (ALT/SGPT) 19 U/L (12-78) Alkaline Phosphatase 80 U/L (46-116) Total Creatine Kinase 76 U/L (26-308) Total Protein 7.3 G/DL (6.4-8.2) Albumin 3.3 G/DL (3.4-5.0) L Globulin 4.0 g/dL Albumin/Globulin Ratio 0.8 (1.0-2.7) L Test 11/04/19 07:10 11/04/19 11:27 11/04/19 11:50 11/04/19 14:00 Random Vancomycin Level 16.4 ug/mL 14.1 ug/mL POC Whole Blood Glucose 101 MG/DL (74-106) Urine Color Pale yellow Urine Appearance Clear Urine pH 5 (4.5-8.0) Urine Specific [place] 1.010 (1.005-1.035) Urine Protein Negative (NEGATIVE) Urine Glucose (UA) Negative (NEGATIVE) Urine Ketones Negative (NEGATIVE) Urine Blood 2+ (NEGATIVE) H Urine Nitrite Negative (NEGATIVE) Urine Bilirubin Negative (NEGATIVE) Urine Urobilinogen Normal MG/DL (0.0-1.0) Urine Leukocyte Esterase Negative (NEGATIVE) Urine RBC 5-10 /HPF (0 - 0) H Urine WBC 0 /HPF (0 - 0) Urine Squamous Epithelial Cells Occasional /LPF Urine Bacteria Occasional /HPF (NONE) Urine Eosinophils None seen (NONE SEEN) Urine Osmolality 380 mOsm/kg (429-449) L Urine Random Creatinine Pending Urine Random Microalbumin Pending Urine Random Sodium 119 mmol/L (20-110) H Urine Microalbumin/Creatinine Ratio Pending Microbiology Date/Time Source Procedure Growth Status 11/03/19 15:25 Nasopharynx SARS-CoV-2 RdRp Gene Assay - Final Complete 11/03/19 15:25 Rectum Received Beka Saleh MD Nov 04, 2019 17:42
[2019-11-04 20:00] VITALS: BP 144/66
--- NOTE | 2019-11-04 22:00 | History and Physical Report ---
DATE OF ADMISSION: 11/03/2019 CHIEF COMPLAINT: The patient is an 88-year-old male, who presents with a chief complaint of "I passed out." HISTORY OF PRESENT ILLNESS: The patient is a resident of [facility]. The patient apparently was in the restroom yesterday November 03, 2019. The patient lost consciousness for a few seconds. The patient was caught by staff who was present. The patient denies any injury. The patient presented to [place] emergency room. The patient was found initially to be hypotensive. The patient received intravenous fluids in the emergency room. The patient is admitted with syncopal episode and probable orthostatic. REVIEW OF SYSTEMS: CONSTITUTIONAL: The patient denies weight loss or weight gain. The patient denies fevers or chills. HEENT: The patient denies ear or throat pain. The patient denies headache. CARDIOVASCULAR: The patient denies palpitations or chest pain. CHEST: The patient denies wheezing or shortness of breath. ABDOMINAL: The patient denies nausea, vomiting, diarrhea, or constipation. GENITOURINARY: The patient denies dysuria or increased frequency of urination. NEUROMUSCULAR: The patient complains of syncopal episode as above. The patient denies seizures or generalized weakness. PAST MEDICAL HISTORY: Significant for: 1. Type 2 diabetes. 2. Hypertension. 3. Hypercholesterolemia. 4. Alzheimer's dementia. 5. Glaucoma. PAST SURGICAL HISTORY: Significant for appendectomy. CURRENT MEDICATIONS: 1. Vitamin D 1000 units orally daily. 2. Lisinopril 5 mg p.o. daily. 3. Aspirin 81 mg p.o. daily. 4. Metformin 500 mg 1 tablet p.o. twice daily. 5. 5 mg 1 tablet p.o. twice daily. 6. Calcium carbonate 500 mg p.o. q.6 hours p.r.n. 7. Latanoprost 1 drop in both eyes at bedtime. 8. Atorvastatin 10 mg p.o. at bedtime. 9. Lispro sliding scale. ALLERGIES: 1. Atenolol. 2. Losartan. 3. Simvastatin. SOCIAL HISTORY: The patient is a . The patient is a resident of [facility]. The patient denies tobacco use, having quit greater than 10 years ago. The patient denies alcohol use. PHYSICAL EXAMINATION: VITAL SIGNS: Temperature 98.1, respirations 18, pulse 80, and blood pressure 126/84. GENERAL: The patient is a well-developed, well-nourished, thin appearing, male, in no apparent distress. HEENT: Eyes, pupils equal and responsive to light and accommodation. Extraocular movements are intact NECK: Supple without lymphadenopathy. CHEST: Lungs are clear to auscultation bilaterally without wheezes or rales. CARDIOVASCULAR: Regular rhythm and rate. S1 and S2 normal without murmurs, rubs, or gallops. ABDOMEN: Soft, nontender, and nondistended. Positive bowel sounds. No evidence of hepatosplenomegaly. Currently, no rebound or guarding noted. EXTREMITIES: Negative for clubbing, cyanosis, or edema. RECTAL/GENITAL: Not performed. NEUROLOGIC: Cranial nerves II through XII are grossly intact without focal deficits. Motor strength is 5/5 bilaterally. Deep tendon reflexes are 2+ plantar. LABORATORY STUDIES: WBC 7.8, hemoglobin 10.4, hematocrit 32.6, and platelets 353,000. Sodium 137, potassium 4.8, chloride 105, CO2 21, BUN 39, creatinine 1.6, and glucose 95. Urinalysis showed 2+ blood with 5 to 10 RBCs. Chest x-ray was reported as no acute disease. ASSESSMENT: This is an 88-year-old, male: 1. Syncopal episode. 2. Diabetes type 2. 3. Hypertension. 4. Hypercholesterolemia. 5. Alzheimer's dementia. 6. Glaucoma. TREATMENT: 1. Syncopal episode. This may be secondary to orthostatic hypotension. Cardiology consultation has been obtained with Dr. Beka Saleh. Initial troponin level was within normal limits. We will follow recommendations of Cardiology. 2. Diabetes type 2. NovoLog sliding scale has been instituted. 3. Hypertension. Continue lisinopril as above. 4. Hypercholesterolemia. Continue atorvastatin as above. 5. Alzheimer's dementia. Continue ____ as above. 6. Glaucoma. Continue latanoprost as above. Darren Pineda M.D. DR: Adal JOB#: [id number] CC:
[2019-11-05] VITALS: BP 146/68
--- NOTE | 2019-11-05 01:00 | Consultation ---
DATE OF CONSULTATION: 11/04/2019 CARDIOLOGY CONSULTATION CONSULTING PHYSICIAN: Beka Saleh MD REFERRING PHYSICIAN: Darren Spencer MD REASON FOR REFERRAL: Syncope. HISTORY OF PRESENT ILLNESS: This is an 88-year-old gentleman who is known to me from a recent hospitalization and followup visit in the office. The patient recently had a fall for which he was hospitalized at [facility]. At that fall, the etiology was not found. The patient was observed in the ER. He had a CT scan that showed a small subdural hematoma and he was followed by Neurosurgery for a day or 2 and he eventually was stable enough to be discharged. He did receive some IV fluids during that hospitalization. I was called yesterday from the [facility] that they found him on the floor in the bathroom. Initially, he was nonresponsive for approximately 1 minute and his blood pressure was low in the 60s and eventually he became more alert and his blood pressure did improve. Because of his recent fall and injury to his head, I recommended that he be taken to the emergency room again. He was brought to the emergency room at [facility], where he was evaluated and felt to have had a volume depletion and was admitted to the hospital. The patient at this time denies any chest pain. He actually does not recall the fall at all himself. He does not have any palpitations. No dizziness or lightheadedness at this time. He does admit to having had it some other time. There is no PND. PAST MEDICAL HISTORY: History of rectal cancer that was removed in 2014 at [place]. He is diabetic, hypertensive, anemia, prostatic hypertrophy, diabetic retinopathy, chronic kidney disease, history of vitamin B12 deficiency diagnosed recently, history of urinary incontinence, anemia, and iron deficiency. He is able to be started on some intravenous iron during the last hospitalization, hyperlipidemia, and hypertension. ALLERGIES: He is allergic to penicillin. SOCIAL HISTORY: He quit smoking in , quit alcohol in the 1979. No drugs. He resides at a convalescent facility. 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 MEDICATIONS: His medications are available in the chart and include 81 mg of aspirin and he takes Lipitor 10 mg, calcium carbonate, Colace, hydralazine 10 mg q.6 hours here. He takes insulin. He takes lisinopril 5 mg daily, Namenda 5 mg twice daily, metformin 500 mg twice daily, senna, sorbitol, and vitamin D. PHYSICAL EXAMINATION: GENERAL: Shows to be an elderly gentleman, in no respiratory distress. No evidence of head injury. NECK: Supple. No jugular venous distention. LUNGS: Clear to auscultation and percussion. CARDIAC: S1 is normal. S2 is normal. Regular rate and rhythm. No heaves or thrills noted. ABDOMEN: Soft and nontender. Positive bowel sounds. EXTREMITIES: No clubbing or cyanosis, nor there is any edema. NEUROLOGICAL: He is awake, alert and responsive. LABORATORY AND DIAGNOSTIC DATA: White count of 6.3, hemoglobin 10.9, and platelet count of 349, that is from today. Sedimentation rate of 105, sodium 147, potassium 4.8, chloride 105, bicarb of 21, BUN of 39, and creatinine 1.6. His creatinine was 1.8. Yesterday, he has had creatinine of 1.3 the day before his discharge from [facility]. His coags, INR of 0.9 and PTT of 27. D-dimer 1.78. His urinalysis shows really no WBCs and his chest x-ray that was performed in the emergency room showed no definite evidence of acute cardiopulmonary disease. Atherosclerotic disease of the coronary artery calcification. Renal ultrasound was performed, shows left renal cyst and his EKG shows sinus rhythm, right bundle-branch conduction defect. No significant ST or T-wave abnormalities and this remained unchanged on several EKGs that he has had at this hospitalization. Telemetry data also shows sinus rhythm. ASSESSMENT AND PLAN: 1. Syncopal episode. 2. Hypotension. 3. Recent fall with subdural hematoma. 4. History of colon cancer, status post resection. 5. Iron deficiency. 6. Anemia. 7. B12 insufficiency. 8. Chronic renal insufficiency. 9. Right bundle-branch conduction defect. 10. Diabetes mellitus. RECOMMENDATIONS: Dr. Spencer, the patient was seen in cardiac consultation. The patient should be monitored and echocardiogram will be ordered. He should have CT scan of his head to make sure he does not have any issues with recent subdural hematoma. He does not endorse any signs or symptoms of coronary syndrome. His initial troponin was normal. We will repeat that tomorrow morning as well. He should continue the IV fluids until his creatinine goes back down to the baseline of 1.3, which he had at the time of his prior hospitalization. Beka Saleh M.D. DR: Erika JOB#: [id number] CC:
[2019-11-05 04:00] VITALS: BP 147/78
[2019-11-05] MEDS: NovoLOG Insulin Flexpen SUBQ SCH ×4 (06:17→21:00)
[2019-11-05] MEDS: LORazepam Inj 2mg/ml 1ml IV PRN ×4 (06:44→16:08)
[2019-11-05 08:00] VITALS: BP 116/62
[2019-11-05] MEDS: Memantine 5 MG TAB ORAL SCH ×2 (09:06→17:36)
[2019-11-05] MEDS: Heparin 5000 units/ml inj SUBQ SCH ×2 (09:06→21:34)
[2019-11-05 09:45] LABS: BASOPHILS % (AUTO) 0.7 % (0.0-2.0); EOSINOPHILS % (AUTO) 0.8 % (0.0-3.0); HEMATOCRIT 32.6 % (42.0-52.0); HEMOGLOBIN 10.3 G/DL (14.2-18.0); LYMPHOCYTES % (AUTO) 12.7 % (20.0-45.0); MEAN CORPUSCULAR VOLUME 87 FL (80-99); MONOCYTES % (AUTO) 8.2 % (1.0-10.0); NEUTROPHILS % (AUTO) 77.5 % (45.0-75.0); PLATELET COUNT 334 K/UL (150-450); RED BLOOD COUNT 3.75 M/UL (4.70-6.10); RED CELL DISTRIBUTION WIDTH 12.6 % (11.6-14.8); WHITE BLOOD COUNT 6.4 K/UL (4.8-10.8)
--- NOTE | 2019-11-05 09:59 | Diagnostic Imaging Report ---
EXAM: CT CT Head no Contrast INDICATION: Reason For Exam: SYNCOPE. TECHNIQUE: Axial images of the brain were obtained with subsequent sagittal and coronal reformats. All CT scans at this facility are performed using dose modulation techniques as appropriate to a performed exam including the following: automated exposure control with adjustment of the mA and/or kV according to patient size. COMPARISON STUDY: 10/05/2017 RADIATION DOSE: CTDIvol: 53.4 mGy DLP: 1045.5 mGy-cm Dose information generated by the CT scanner is available in PACS. FINDINGS: There is age related senescent changes with ventricular and sulcal prominence. White matter micro-ischemic changes noted. There is no acute large territory cortical infarct, hemorrhage, mass effect or shift. Ventricles and cisterns as well as brainstem and posterior fossa appear unremarkable. The sellar region is normal. There is fluid in the right mastoid air cells. IMPRESSION: Age related senescent changes. No acute intracranial abnormality. Right sphenoid sinus disease.
[2019-11-05 10:21] LABS: ALANINE AMINOTRANSFERASE 18 U/L (12-78); ALBUMIN 3.4 G/DL (3.4-5.0); ALKALINE PHOSPHATASE 79 U/L (46-116); ANION GAP 10 mmol/L (5-15); ASPARTATE AMINO TRANSFERASE 18 U/L (15-37); BILIRUBIN,TOTAL 0.4 MG/DL (0.2-1.0); BLOOD UREA NITROGEN 27 mg/dL (7-18); CALCIUM 8.5 MG/DL (8.5-10.1); CARBON DIOXIDE 23 MMOL/L (21-32); CHLORIDE 105 MMOL/L (98-107); CREATININE 1.5 MG/DL (0.55-1.30); POTASSIUM 4.7 MMOL/L (3.5-5.1); SODIUM 138 MMOL/L (136-145)
[2019-11-05 12:00] VITALS: BP 105/51
--- NOTE | 2019-11-05 12:00 | Pulmonology Progress Note ---
Subjective ROS Limited/Unobtainable: No Constitutional: Reports: no symptoms HEENT: Repors: no symptoms Allergies: Coded Allergies: ATENOLOL (Verified Allergy, Unknown, 05/23/16) LOSARTAN (Verified Allergy, Unknown, 05/23/16) SIMVASTATIN (Verified Allergy, Unknown, 05/23/16) Uncoded Allergies: AMLIODIPINE (Allergy, Unknown, 05/23/16) PENICILLIN (Allergy, Unknown, 05/23/16) Objective Last 24 Hour Vital Signs Date Time Temp Pulse Resp B/P (MAP) Pulse Ox O2 Delivery O2 Flow Rate FiO2 11/05/19 09:00 Room Air 11/05/19 08:00 97.7 114 18 116/62 (80) 98 11/05/19 08:00 109 11/05/19 04:00 97.7 100 22 147/78 (101) 100 11/05/19 03:35 91 11/05/19 00:00 98.2 95 19 146/68 (94) 97 11/04/19 23:33 64 11/04/19 21:17 Room Air 11/04/19 20:02 79 11/04/19 20:00 95 20 98 Room Air 21 11/04/19 20:00 98.4 97 20 144/66 (92) 97 11/04/19 16:00 97.5 84 20 125/64 (84) 99 11/04/19 15:47 78 11/04/19 15:16 77 20 99 Room Air 21 11/04/19 12:00 89 11/04/19 12:00 97.7 84 18 148/78 (101) 100 Intake and Output 11/04/19 11/05/19 19:00 07:00 Intake Total 120 ml Balance 120 ml Intake Oral 120 ml # Voids 5 General Appearance: no acute distress, cachetic HEENT: normocephalic Respiratory: chest wall non-tender, lungs clear, normal breath sounds Cardiovascular: normal rate, regular rhythm Abdomen: normal bowel sounds Genitourinary: normal external genitalia Extremities: no clubbing Skin: no rash, no lesions Microbiology Date/Time Source Procedure Growth Status 11/03/19 15:25 Blood Blood Culture - Preliminary NO GROWTH AFTER 24 HOURS Resulted 11/03/19 15:10 Blood Blood Culture - Preliminary NO GROWTH AFTER 24 HOURS Resulted 11/03/19 15:25 Nasopharynx SARS-CoV-2 RdRp Gene Assay - Final Complete 11/04/19 14:00 Indwelling Cath Urine Culture - Preliminary NO GROWTH Resulted 11/03/19 15:25 Rectum Received Laboratory Tests 11/04/19 14:00: Urine Color Pale yellow, Urine Appearance Clear, Urine pH 5, Urine Specific Palmer 1.010, Urine Protein Negative, Urine Glucose (UA) Negative, Urine Ketones Negative, Urine Blood 2+H, Urine Nitrite Negative, Urine Bilirubin Negative, Urine Urobilinogen Normal, Urine Leukocyte Esterase Negative, Urine RBC 5-10H, Urine WBC 0, Urine Squamous Epithelial Cells Occasional, Urine Bacteria Occasional, Urine Eosinophils None seen, Urine Osmolality 380L, Urine Random Creatinine [Pending], Urine Random Microalbumin [Pending], Urine Random Sodium 119H, Urine Microalbumin/Creatinine Ratio [Pending] 11/05/19 09:00: White Blood Count 6.4, Red Blood Count 3.75L, Hemoglobin 10.3L, Hematocrit 32.6L , Mean Corpuscular Volume 87, Mean Corpuscular Hemoglobin 27.6, Mean Corpuscular Hemoglobin Concent 31.7L, Red Cell Distribution Width 12.6, Platelet Count 334, Mean Platelet Volume 5.0L, Neutrophils (%) (Auto) 77.5H, Lymphocytes (%) (Auto) 12.7L, Monocytes (%) (Auto) 8.2, Eosinophils (%) (Auto) 0.8, Basophils (%) (Auto) 0.7, Sodium Level 138, Potassium Level 4.7, Chloride Level 105, Carbon Dioxide Level 23, Anion Gap 10, Blood Urea Nitrogen 27H, Creatinine 1.5H, Estimat Glomerular Filtration Rate 44.3, Glucose Level 158H, Calcium Level 8.5, Magnesium Level 1.5L, Total Bilirubin 0.4, Aspartate Amino Transf (AST/SGOT) 18, Alanine Aminotransferase (ALT/SGPT) 18, Alkaline Phosphatase 79, Troponin I 0.108H, Pro-B-Type Natriuretic Peptide 5006H, Total Protein 6.7, Albumin 3.4, Globulin 3.3, Albumin/Globulin Ratio 1.0 11/05/19 11:36: POC Whole Blood Glucose 138H Current Medications Medications (Trade) Dose Ordered Sig/James Route PRN Reason Start Time Stop Time Status Last Admin Dose Admin Acetaminophen (Tylenol) 650 mg Q4H PRN ORAL fever 11/03/19 17:45 12/03/19 17:44 Albuterol/ Ipratropium (Albuterol/ Ipratropium) 3 ml Q4H PRN HHN Shortness of Breath 11/03/19 17:45 11/08/19 17:44 Dextrose (Dextrose 50%) 25 ml Q30M PRN IV Hypoglycemia 11/03/19 18:00 02/01/20 17:59 Dextrose (Dextrose 50%) 50 ml Q30M PRN IV Hypoglycemia 11/03/19 18:00 02/01/20 17:59 Heparin Sodium (Porcine) (Heparin 5000 units/ml) 5,000 units EVERY 12 HOURS SUBQ 11/03/19 21:00 12/18/19 20:59 11/05/19 09:06 Insulin Aspart (NovoLOG) BEFORE MEALS AND HS SUBQ 11/03/19 21:00 02/01/20 20:59 11/04/19 21:40 Levofloxacin 50 ml @ 50 mls/hr Q24H IVPB 11/04/19 16:00 11/11/19 15:59 11/04/19 17:03 Lorazepam (Ativan 2mg/ml 1ml) 1 mg Q4H PRN IV For Anxiety 11/05/19 06:45 11/12/19 06:44 11/05/19 09:06 Memantine (Namenda) 5 mg TWICE A DAY ORAL 11/03/19 18:00 12/03/19 17:59 11/05/19 09:06 Ondansetron HCl (Zofran) 4 mg Q6H PRN IVP Nausea & Vomiting 11/03/19 17:45 12/03/19 17:44 Sodium Chloride 1,000 ml @ 75 mls/hr [id number] IV 11/04/19 12:15 12/03/19 12:14 11/04/19 12:29 Temazepam (Restoril) 15 mg HSPRN PRN ORAL Insomnia 11/03/19 17:45 11/10/19 17:44 Vancomycin HCl ([facility] to dose) 1 ea DAILY PRN MISC . 11/03/19 18:00 12/03/19 17:59 Assessment/Plan Problems: (1) Acute dehydration (2) Syncope (3) History of hypertension (4) History of diabetes mellitus Assessment/Plan renal function improving bun/creatinine coming down Echo ordered, still pending watch electrolytes pt/ot CT of head reviewed: IMPRESSION: Age related senescent changes. No acute intracranial abnormality. Right sphenoid sinus disease. Cherelle Vera MD Nov 05, 2019 12:00
--- NOTE | 2019-11-05 12:04 | Internal Med Progress Note ---
Subjective Date of Service: Nov 05, 2019 Physician Name Darren Pineda Attending Physician Darren Spencer MD Current Medications Medications (Trade) Dose Ordered Sig/James Route PRN Reason Start Time Stop Time Status Last Admin Dose Admin Acetaminophen (Tylenol) 650 mg Q4H PRN ORAL fever 11/03/19 17:45 12/03/19 17:44 Albuterol/ Ipratropium (Albuterol/ Ipratropium) 3 ml Q4H PRN HHN Shortness of Breath 11/03/19 17:45 11/08/19 17:44 Dextrose (Dextrose 50%) 25 ml Q30M PRN IV Hypoglycemia 11/03/19 18:00 02/01/20 17:59 Dextrose (Dextrose 50%) 50 ml Q30M PRN IV Hypoglycemia 11/03/19 18:00 02/01/20 17:59 Heparin Sodium (Porcine) (Heparin 5000 units/ml) 5,000 units EVERY 12 HOURS SUBQ 11/03/19 21:00 12/18/19 20:59 11/05/19 09:06 Insulin Aspart (NovoLOG) BEFORE MEALS AND HS SUBQ 11/03/19 21:00 02/01/20 20:59 11/04/19 21:40 Levofloxacin 50 ml @ 50 mls/hr Q24H IVPB 11/04/19 16:00 11/11/19 15:59 11/04/19 17:03 Lorazepam (Ativan 2mg/ml 1ml) 1 mg Q4H PRN IV For Anxiety 11/05/19 06:45 11/12/19 06:44 11/05/19 09:06 Memantine (Namenda) 5 mg TWICE A DAY ORAL 11/03/19 18:00 12/03/19 17:59 11/05/19 09:06 Ondansetron HCl (Zofran) 4 mg Q6H PRN IVP Nausea & Vomiting 11/03/19 17:45 12/03/19 17:44 Sodium Chloride 1,000 ml @ 75 mls/hr [id number] IV 11/04/19 12:15 12/03/19 12:14 11/04/19 12:29 Temazepam (Restoril) 15 mg HSPRN PRN ORAL Insomnia 11/03/19 17:45 11/10/19 17:44 Vancomycin HCl ([facility] pharmacy to dose) 1 ea DAILY PRN MISC . 11/03/19 18:00 12/03/19 17:59 Allergies: Coded Allergies: ATENOLOL (Verified Allergy, Unknown, 05/23/16) LOSARTAN (Verified Allergy, Unknown, 05/23/16) SIMVASTATIN (Verified Allergy, Unknown, 05/23/16) Uncoded Allergies: AMLIODIPINE (Allergy, Unknown, 05/23/16) PENICILLIN (Allergy, Unknown, 05/23/16) Objective Last Vital Signs Date Time Temp Pulse Resp B/P (MAP) Pulse Ox O2 Delivery O2 Flow Rate FiO2 11/05/19 09:00 Room Air 11/05/19 08:00 97.7 114 18 116/62 (80) 98 11/04/19 20:00 21 Laboratory Tests Test 11/04/19 14:00 11/05/19 09:00 11/05/19 11:36 Urine Color Pale yellow Urine Appearance Clear Urine pH 5 (4.5-8.0) Urine Specific Oden 1.010 (1.005-1.035) Urine Protein Negative (NEGATIVE) Urine Glucose (UA) Negative (NEGATIVE) Urine Ketones Negative (NEGATIVE) Urine Blood 2+ (NEGATIVE) H Urine Nitrite Negative (NEGATIVE) Urine Bilirubin Negative (NEGATIVE) Urine Urobilinogen Normal MG/DL (0.0-1.0) Urine Leukocyte Esterase Negative (NEGATIVE) Urine RBC 5-10 /HPF (0 - 0) H Urine WBC 0 /HPF (0 - 0) Urine Squamous Epithelial Cells Occasional /LPF Urine Bacteria Occasional /HPF (NONE) Urine Eosinophils None seen (NONE SEEN) Urine Osmolality 380 mOsm/kg (429-449) L Urine Random Creatinine Pending Urine Random Microalbumin Pending Urine Random Sodium 119 mmol/L (20-110) H Urine Microalbumin/Creatinine Ratio Pending White Blood Count 6.4 K/UL (4.8-10.8) Red Blood Count 3.75 M/UL (4.70-6.10) L Hemoglobin 10.3 G/DL (14.2-18.0) L Hematocrit 32.6 % (42.0-52.0) L Mean Corpuscular Volume 87 FL (80-99) Mean Corpuscular Hemoglobin 27.6 PG (27.0-31.0) Mean Corpuscular Hemoglobin Concent 31.7 G/DL (32.0-36.0) L Red Cell Distribution Width 12.6 % (11.6-14.8) Platelet Count 334 K/UL (150-450) Mean Platelet Volume 5.0 FL (6.5-10.1) L Neutrophils (%) (Auto) 77.5 % (45.0-75.0) H Lymphocytes (%) (Auto) 12.7 % (20.0-45.0) L Monocytes (%) (Auto) 8.2 % (1.0-10.0) Eosinophils (%) (Auto) 0.8 % (0.0-3.0) Basophils (%) (Auto) 0.7 % (0.0-2.0) Sodium Level 138 MMOL/L (136-145) Potassium Level 4.7 MMOL/L (3.5-5.1) Chloride Level 105 MMOL/L (98-107) Carbon Dioxide Level 23 MMOL/L (21-32) Anion Gap 10 mmol/L (5-15) Blood Urea Nitrogen 27 mg/dL (7-18) H Creatinine 1.5 MG/DL (0.55-1.30) H Estimat Glomerular Filtration Rate 44.3 mL/min (>60) Glucose Level 158 MG/DL (74-106) H Calcium Level 8.5 MG/DL (8.5-10.1) Magnesium Level 1.5 MG/DL (1.8-2.4) L Total Bilirubin 0.4 MG/DL (0.2-1.0) Aspartate Amino Transf (AST/SGOT) 18 U/L (15-37) Alanine Aminotransferase (ALT/SGPT) 18 U/L (12-78) Alkaline Phosphatase 79 U/L (46-116) Troponin I 0.108 ng/mL (0.000-0.056) Pro-B-Type Natriuretic Peptide 5006 pg/mL (0-125) H Total Protein 6.7 G/DL (6.4-8.2) Albumin 3.4 G/DL (3.4-5.0) Globulin 3.3 g/dL Albumin/Globulin Ratio 1.0 (1.0-2.7) POC Whole Blood Glucose 138 MG/DL (74-106) H Microbiology Date/Time Source Procedure Growth Status 11/03/19 15:25 Blood Blood Culture - Preliminary NO GROWTH AFTER 24 HOURS Resulted 11/03/19 15:10 Blood Blood Culture - Preliminary NO GROWTH AFTER 24 HOURS Resulted 11/03/19 15:25 Nasopharynx SARS-CoV-2 RdRp Gene Assay - Final Complete 11/04/19 14:00 Indwelling Cath Urine Culture - Preliminary NO GROWTH Resulted 11/03/19 15:25 Rectum Received Intake and Output 11/04/19 11/05/19 19:00 07:00 Intake Total 120 ml Balance 120 ml Intake Oral 120 ml # Voids 5 Objective PHYSICAL EXAMINATION: GENERAL: The patient is a well-developed, well-nourished, thin appearing, male, in no apparent distress. HEENT: Eyes, pupils equal and responsive to light and accommodation. Extraocular movements are intact NECK: Supple without lymphadenopathy. CHEST: Lungs are clear to auscultation bilaterally without wheezes or rales. CARDIOVASCULAR: Regular rhythm and rate. S1 and S2 normal without murmurs, rubs, or gallops. ABDOMEN: Soft, nontender, and nondistended. Positive bowel sounds. No evidence of hepatosplenomegaly. Currently, no rebound or guarding noted. EXTREMITIES: Negative for clubbing, cyanosis, or edema. RECTAL/GENITAL: Not performed. NEUROLOGIC: Cranial nerves II through XII are grossly intact without focal deficits. Motor strength is 5/5 bilaterally. Deep tendon reflexes are 2+ plantar. Assessment/Plan Assessment/Plan ASSESSMENT: This is an 88-year-old, male: 1. Syncopal episode. 2. Diabetes type 2. 3. Hypertension. 4. Hypercholesterolemia. 5. Alzheimer's dementia. 6. Glaucoma. TREATMENT: 1. Syncopal episode. This may be secondary to orthostatic hypotension. Cardiology consultation has been obtained with Dr. Beka Saleh. Initial troponin level was within normal limits. We will follow recommendations of Cardiology. 2. Diabetes type 2. NovoLog sliding scale has been instituted. 3. Hypertension. Continue lisinopril as above. 4. Hypercholesterolemia. Continue atorvastatin as above. 5. Alzheimer's dementia. Continue as above. 6. Glaucoma. Continue latanoprost as above. Darren Pineda MD Nov 05, 2019 12:04
[2019-11-05 16:00] VITALS: BP 150/73
[2019-11-05] MEDS: Levofloxacin 250mg/D5W 50ml IVPB SCH (16:09)
--- NOTE | 2019-11-05 19:53 | Cardiology Progress Note ---
Assessment/Plan Assessment/Plan 1. Syncopal episode. 2. Hypotension. 3. Recent fall with subdural hematoma. 4. History of colon cancer, status post resection. 5. Iron deficiency. 6. Anemia. 7. B12 insufficiency. 8. Chronic renal insufficiency. 9. Right bundle-branch conduction defect. 10. Diabetes mellitus. 11. Confusion maybe related to ativAN tele sinus dc ivf bnp elevated ct of head noted trop min elelvated will repeat tonite and in am repeat ekg echo prelim showeed normal motion blood and urin cx neg lasix lwo dose oxygen sat is fine dc ativan Subjective Subjective confused Objective Last 24 Hour Vital Signs Date Time Temp Pulse Resp B/P (MAP) Pulse Ox O2 Delivery O2 Flow Rate FiO2 11/05/19 16:00 97.9 90 18 150/73 (98) 98 11/05/19 16:00 105 11/05/19 12:00 97.5 87 20 105/51 (69) 98 11/05/19 12:00 82 11/05/19 09:00 Room Air 11/05/19 08:00 97.7 114 18 116/62 (80) 98 11/05/19 08:00 109 11/05/19 04:00 97.7 100 22 147/78 (101) 100 11/05/19 03:35 91 11/05/19 00:00 98.2 95 19 146/68 (94) 97 11/04/19 23:33 64 11/04/19 21:17 Room Air 11/04/19 20:02 79 11/04/19 20:00 95 20 98 Room Air 21 11/04/19 20:00 98.4 97 20 144/66 (92) 97 General Appearance: no apparent distress, other - confused Cardiovascular: normal rate Respiratory/Chest: crackles/rales Abdomen: normal bowel sounds, non tender, soft Extremities: no swelling Intake and Output 11/04/19 11/05/19 19:00 07:00 Intake Total 120 ml Balance 120 ml Intake Oral 120 ml # Voids 5 Laboratory Tests Test 11/05/19 09:00 11/05/19 11:36 11/05/19 16:17 White Blood Count 6.4 K/UL (4.8-10.8) Red Blood Count 3.75 M/UL (4.70-6.10) L Hemoglobin 10.3 G/DL (14.2-18.0) L Hematocrit 32.6 % (42.0-52.0) L Mean Corpuscular Volume 87 FL (80-99) Mean Corpuscular Hemoglobin 27.6 PG (27.0-31.0) Mean Corpuscular Hemoglobin Concent 31.7 G/DL (32.0-36.0) L Red Cell Distribution Width 12.6 % (11.6-14.8) Platelet Count 334 K/UL (150-450) Mean Platelet Volume 5.0 FL (6.5-10.1) L Neutrophils (%) (Auto) 77.5 % (45.0-75.0) H Lymphocytes (%) (Auto) 12.7 % (20.0-45.0) L Monocytes (%) (Auto) 8.2 % (1.0-10.0) Eosinophils (%) (Auto) 0.8 % (0.0-3.0) Basophils (%) (Auto) 0.7 % (0.0-2.0) Sodium Level 138 MMOL/L (136-145) Potassium Level 4.7 MMOL/L (3.5-5.1) Chloride Level 105 MMOL/L (98-107) Carbon Dioxide Level 23 MMOL/L (21-32) Anion Gap 10 mmol/L (5-15) Blood Urea Nitrogen 27 mg/dL (7-18) H Creatinine 1.5 MG/DL (0.55-1.30) H Estimat Glomerular Filtration Rate 44.3 mL/min (>60) Glucose Level 158 MG/DL (74-106) H Calcium Level 8.5 MG/DL (8.5-10.1) Magnesium Level 1.5 MG/DL (1.8-2.4) L Total Bilirubin 0.4 MG/DL (0.2-1.0) Aspartate Amino Transf (AST/SGOT) 18 U/L (15-37) Alanine Aminotransferase (ALT/SGPT) 18 U/L (12-78) Alkaline Phosphatase 79 U/L (46-116) Troponin I 0.108 ng/mL (0.000-0.056) Pro-B-Type Natriuretic Peptide 5006 pg/mL (0-125) H Total Protein 6.7 G/DL (6.4-8.2) Albumin 3.4 G/DL (3.4-5.0) Globulin 3.3 g/dL Albumin/Globulin Ratio 1.0 (1.0-2.7) POC Whole Blood Glucose 138 MG/DL (74-106) H 128 MG/DL (74-106) H Microbiology Date/Time Source Procedure Growth Status 11/03/19 15:25 Blood Blood Culture - Preliminary NO GROWTH AFTER 24 HOURS Resulted 11/03/19 15:10 Blood Blood Culture - Preliminary NO GROWTH AFTER 24 HOURS Resulted 11/03/19 15:25 Nasopharynx SARS-CoV-2 RdRp Gene Assay - Final Complete 11/04/19 14:00 Indwelling Cath Urine Culture - Preliminary NO GROWTH Resulted 11/03/19 15:25 Rectum Received Beka Saleh MD Nov 05, 2019 19:53
[2019-11-05 20:00] VITALS: BP 139/84
[2019-11-06] VITALS: BP 142/86
[2019-11-06 04:00] VITALS: BP_SYST 105; BP_SYST 140; BP_DIAS 80; BP_DIAS 89
[2019-11-06 05:22] LABS: ANION GAP 12 mmol/L (5-15); BLOOD UREA NITROGEN 22 mg/dL (7-18); CALCIUM 8.7 MG/DL (8.5-10.1); CARBON DIOXIDE 20 MMOL/L (21-32); CHLORIDE 103 MMOL/L (98-107); CREATININE 1.4 MG/DL (0.55-1.30); POTASSIUM 3.9 MMOL/L (3.5-5.1); SODIUM 135 MMOL/L (136-145)
[2019-11-06] MEDS ORDERED: Vancomycin 1gm/D5W 275ml IVPB ONE ×2 (06:00)
[2019-11-06] MEDS: NovoLOG Insulin Flexpen SUBQ SCH ×4 (06:30→21:00)
[2019-11-06 08:00] VITALS: BP 115/70
[2019-11-06] MEDS: Memantine 5 MG TAB ORAL SCH ×2 (08:17→17:17)
[2019-11-06] MEDS: Heparin 5000 units/ml inj SUBQ SCH ×2 (08:18→21:28)
[2019-11-06] MEDS ORDERED: Vancomycin 1gm/D5W 275ml IVPB SCH ×2 (09:00)
[2019-11-06 09:21] LABS: BASOPHILS % (AUTO) 0.9 % (0.0-2.0); EOSINOPHILS % (AUTO) 0.6 % (0.0-3.0); HEMATOCRIT 33.9 % (42.0-52.0); HEMOGLOBIN 10.6 G/DL (14.2-18.0); LYMPHOCYTES % (AUTO) 14.5 % (20.0-45.0); MEAN CORPUSCULAR VOLUME 87 FL (80-99); MONOCYTES % (AUTO) 13.7 % (1.0-10.0); NEUTROPHILS % (AUTO) 70.3 % (45.0-75.0); PLATELET COUNT 326 K/UL (150-450); RED BLOOD COUNT 3.87 M/UL (4.70-6.10); WHITE BLOOD COUNT 7.4 K/UL (4.8-10.8)
[2019-11-06 12:00] VITALS: BP 119/67
--- NOTE | 2019-11-06 13:50 | Pulmonology Progress Note ---
Subjective ROS Limited/Unobtainable: No Constitutional: Reports: no symptoms HEENT: Repors: no symptoms Allergies: Coded Allergies: ATENOLOL (Verified Allergy, Unknown, 05/23/16) LOSARTAN (Verified Allergy, Unknown, 05/23/16) SIMVASTATIN (Verified Allergy, Unknown, 05/23/16) Uncoded Allergies: AMLIODIPINE (Allergy, Unknown, 05/23/16) PENICILLIN (Allergy, Unknown, 05/23/16) Objective Last 24 Hour Vital Signs Date Time Temp Pulse Resp B/P (MAP) Pulse Ox O2 Delivery O2 Flow Rate FiO2 11/06/19 12:00 97.2 86 20 119/67 (84) 98 11/06/19 09:00 Room Air 11/06/19 08:00 97.0 92 18 115/70 (85) 98 11/06/19 08:00 85 11/06/19 04:00 97.9 105 20 105/80 (88) 97 11/06/19 04:00 105 11/06/19 00:00 85 11/06/19 00:00 97.5 85 20 142/86 (104) 97 11/05/19 21:00 Room Air 11/05/19 20:21 91 16 96 Room Air 21 11/05/19 20:00 91 11/05/19 20:00 99.0 91 19 139/84 (102) 96 11/05/19 16:00 97.9 90 18 150/73 (98) 98 11/05/19 16:00 105 Intake and Output 11/05/19 11/06/19 19:00 07:00 Intake Total 440 ml Output Total 450 ml Balance -10 ml Intake Oral 240 ml IV Total 200 ml Output Urine Total 450 ml General Appearance: no acute distress, cachetic HEENT: normocephalic Respiratory: chest wall non-tender, lungs clear, normal breath sounds Cardiovascular: normal rate, regular rhythm Abdomen: normal bowel sounds Genitourinary: normal external genitalia Extremities: no clubbing Skin: no rash, no lesions Microbiology Date/Time Source Procedure Growth Status 11/03/19 15:25 Blood Blood Culture - Preliminary NO GROWTH AFTER 48 HOURS Resulted 11/03/19 15:10 Blood Blood Culture - Preliminary NO GROWTH AFTER 48 HOURS Resulted 11/03/19 15:25 Nasal Nares MRSA Culture - Final NO METHICILLIN RESISTANT STAPH AUREUS... Complete 11/03/19 15:25 Nasopharynx SARS-CoV-2 RdRp Gene Assay - Final Complete 11/04/19 14:00 Indwelling Cath Urine Culture - Preliminary NO GROWTH AFTER 24 HOURS Resulted 11/03/19 15:25 Rectum VRE Culture - Final NO VANCOMYCIN RESISTANT ENTEROCOCCUS ... Complete 11/03/19 15:25 Rectum - Final NO CARBAPENEM-RESISTANT ENTEROBACTERI... Complete Laboratory Tests 11/05/19 16:17: POC Whole Blood Glucose 128H 11/05/19 21:03: Troponin I 0.201H 11/06/19 04:00: Troponin I 0.136H, Sodium Level 135L, Potassium Level 3.9, Chloride Level 103, Carbon Dioxide Level 20L, Anion Gap 12, Blood Urea Nitrogen 22H, Creatinine 1.4H , Estimat Glomerular Filtration Rate 47.9, Glucose Level 119H, Calcium Level 8.7 , Random Vancomycin Level 11.0 11/06/19 06:28: POC Whole Blood Glucose 114H 11/06/19 09:05: White Blood Count 7.4, Red Blood Count 3.87L, Hemoglobin 10.6L, Hematocrit 33.9L , Mean Corpuscular Volume 87, Mean Corpuscular Hemoglobin 27.5, Mean Corpuscular Hemoglobin Concent 31.4L, Red Cell Distribution Width 13.0, Platelet Count 326, Mean Platelet Volume 5.1L, Neutrophils (%) (Auto) 70.3, Lymphocytes (%) (Auto) 14.5L, Monocytes (%) (Auto) 13.7H, Eosinophils (%) (Auto ) 0.6, Basophils (%) (Auto) 0.9 11/06/19 12:10: POC Whole Blood Glucose 142H Current Medications Medications (Trade) Dose Ordered Sig/James Route PRN Reason Start Time Stop Time Status Last Admin Dose Admin Acetaminophen (Tylenol) 650 mg Q4H PRN ORAL fever 11/03/19 17:45 12/03/19 17:44 Albuterol/ Ipratropium (Albuterol/ Ipratropium) 3 ml Q4H PRN HHN Shortness of Breath 11/03/19 17:45 11/08/19 17:44 Dextrose (Dextrose 50%) 25 ml Q30M PRN IV Hypoglycemia 11/03/19 18:00 02/01/20 17:59 Dextrose (Dextrose 50%) 50 ml Q30M PRN IV Hypoglycemia 11/03/19 18:00 02/01/20 17:59 Heparin Sodium (Porcine) (Heparin 5000 units/ml) 5,000 units EVERY 12 HOURS SUBQ 11/03/19 21:00 12/18/19 20:59 11/06/19 08:18 Insulin Aspart (NovoLOG) BEFORE MEALS AND HS SUBQ 11/03/19 21:00 02/01/20 20:59 11/06/19 12:18 Levofloxacin 50 ml @ 50 mls/hr Q24H IVPB 11/04/19 16:00 11/11/19 15:59 11/05/19 16:09 Memantine (Namenda) 5 mg TWICE A DAY ORAL 11/03/19 18:00 12/03/19 17:59 11/06/19 08:17 Ondansetron HCl (Zofran) 4 mg Q6H PRN IVP Nausea & Vomiting 11/03/19 17:45 12/03/19 17:44 Temazepam (Restoril) 15 mg HSPRN PRN ORAL Insomnia 11/03/19 17:45 11/10/19 17:44 Vancomycin HCl (Vanco pharmacy to dose) 1 ea DAILY PRN MISC . 11/03/19 18:00 12/03/19 17:59 Assessment/Plan Problems: (1) Acute dehydration (2) Syncope (3) History of hypertension (4) History of diabetes mellitus Assessment/Plan renal function improving slowly bun/creatinine coming down Echo showing EF of 60% Renal consult called watch electrolytes pt/ot CT of head: Age related senescent changes. No acute intracranial abnormality. Right sphenoid sinus disease. Cherelle Vera MD Nov 06, 2019 13:50
[2019-11-06] MEDS: Levofloxacin 250mg/D5W 50ml IVPB SCH (15:14)
[2019-11-06 16:00] VITALS: BP 138/59
--- NOTE | 2019-11-06 17:19 | Internal Med Progress Note ---
Subjective Date of Service: Nov 06, 2019 Physician Name Darren Pineda Attending Physician Darren Spencer MD Current Medications Medications (Trade) Dose Ordered Sig/James Route PRN Reason Start Time Stop Time Status Last Admin Dose Admin Acetaminophen (Tylenol) 650 mg Q4H PRN ORAL fever 11/03/19 17:45 12/03/19 17:44 Albuterol/ Ipratropium (Albuterol/ Ipratropium) 3 ml Q4H PRN HHN Shortness of Breath 11/03/19 17:45 11/08/19 17:44 Dextrose (Dextrose 50%) 25 ml Q30M PRN IV Hypoglycemia 11/03/19 18:00 02/01/20 17:59 Dextrose (Dextrose 50%) 50 ml Q30M PRN IV Hypoglycemia 11/03/19 18:00 02/01/20 17:59 Heparin Sodium (Porcine) (Heparin 5000 units/ml) 5,000 units EVERY 12 HOURS SUBQ 11/03/19 21:00 12/18/19 20:59 11/06/19 08:18 Insulin Aspart (NovoLOG) BEFORE MEALS AND HS SUBQ 11/03/19 21:00 02/01/20 20:59 11/06/19 16:48 Levofloxacin 50 ml @ 50 mls/hr Q24H IVPB 11/04/19 16:00 11/11/19 15:59 11/06/19 15:14 Memantine (Namenda) 5 mg TWICE A DAY ORAL 11/03/19 18:00 12/03/19 17:59 11/06/19 17:17 Ondansetron HCl (Zofran) 4 mg Q6H PRN IVP Nausea & Vomiting 11/03/19 17:45 12/03/19 17:44 Temazepam (Restoril) 15 mg HSPRN PRN ORAL Insomnia 11/03/19 17:45 11/10/19 17:44 Vancomycin HCl ([facility] pharmacy to dose) 1 ea DAILY PRN MISC . 11/03/19 18:00 12/03/19 17:59 Allergies: Coded Allergies: ATENOLOL (Verified Allergy, Unknown, 05/23/16) LOSARTAN (Verified Allergy, Unknown, 05/23/16) SIMVASTATIN (Verified Allergy, Unknown, 05/23/16) Uncoded Allergies: AMLIODIPINE (Allergy, Unknown, 05/23/16) PENICILLIN (Allergy, Unknown, 05/23/16) ROS Limited/Unobtainable: No Constitutional: Reports: no symptoms HEENT: Reports: no symptoms Cardiovascular: Reports: no symptoms Respiratory: Reports: no symptoms Gastrointestinal/Abdominal: Reports: no symptoms Genitourinary: Reports: no symptoms Neurologic/Psychiatric: Reports: no symptoms Subjective 88 YO M admitted with sycnope. Cover for Int Gadiel-Dr Spencer Objective Last Vital Signs Date Time Temp Pulse Resp B/P (MAP) Pulse Ox O2 Delivery O2 Flow Rate FiO2 11/06/19 16:00 97.9 97 18 138/59 (85) 92 11/06/19 09:00 Room Air 11/05/19 20:21 21 Laboratory Tests Test 11/05/19 21:03 11/06/19 04:00 11/06/19 06:28 11/06/19 09:05 Troponin I 0.201 ng/mL (0.000-0.056) 0.136 ng/mL (0.000-0.056) Sodium Level 135 MMOL/L (136-145) L Potassium Level 3.9 MMOL/L (3.5-5.1) Chloride Level 103 MMOL/L (98-107) Carbon Dioxide Level 20 MMOL/L (21-32) L Anion Gap 12 mmol/L (5-15) Blood Urea Nitrogen 22 mg/dL (7-18) H Creatinine 1.4 MG/DL (0.55-1.30) H Estimat Glomerular Filtration Rate 47.9 mL/min (>60) Glucose Level 119 MG/DL (74-106) H Calcium Level 8.7 MG/DL (8.5-10.1) Random Vancomycin Level 11.0 ug/mL POC Whole Blood Glucose 114 MG/DL (74-106) H White Blood Count 7.4 K/UL (4.8-10.8) Red Blood Count 3.87 M/UL (4.70-6.10) L Hemoglobin 10.6 G/DL (14.2-18.0) L Hematocrit 33.9 % (42.0-52.0) L Mean Corpuscular Volume 87 FL (80-99) Mean Corpuscular Hemoglobin 27.5 PG (27.0-31.0) Mean Corpuscular Hemoglobin Concent 31.4 G/DL (32.0-36.0) L Red Cell Distribution Width 13.0 % (11.6-14.8) Platelet Count 326 K/UL (150-450) Mean Platelet Volume 5.1 FL (6.5-10.1) L Neutrophils (%) (Auto) 70.3 % (45.0-75.0) Lymphocytes (%) (Auto) 14.5 % (20.0-45.0) L Monocytes (%) (Auto) 13.7 % (1.0-10.0) H Eosinophils (%) (Auto) 0.6 % (0.0-3.0) Basophils (%) (Auto) 0.9 % (0.0-2.0) Test 11/06/19 12:10 POC Whole Blood Glucose 142 MG/DL (74-106) H Microbiology Date/Time Source Procedure Growth Status 11/04/19 14:00 Indwelling Cath Urine Culture - Preliminary NO GROWTH AFTER 24 HOURS Resulted Intake and Output 11/05/19 11/06/19 19:00 07:00 Intake Total 440 ml Output Total 450 ml Balance -10 ml Intake Oral 240 ml IV Total 200 ml Output Urine Total 450 ml Objective PHYSICAL EXAMINATION: GENERAL: The patient is a well-developed, well-nourished, thin appearing, male, in no apparent distress. HEENT: Eyes, pupils equal and responsive to light and accommodation. Extraocular movements are intact NECK: Supple without lymphadenopathy. CHEST: Lungs are clear to auscultation bilaterally without wheezes or rales. CARDIOVASCULAR: Regular rhythm and rate. S1 and S2 normal without murmurs, rubs, or gallops. ABDOMEN: Soft, nontender, and nondistended. Positive bowel sounds. No evidence of hepatosplenomegaly. Currently, no rebound or guarding noted. EXTREMITIES: Negative for clubbing, cyanosis, or edema. RECTAL/GENITAL: Not performed. NEUROLOGIC: Cranial nerves II through XII are grossly intact without focal deficits. Motor strength is 5/5 bilaterally. Deep tendon reflexes are 2+ plantar. Assessment/Plan Assessment/Plan ASSESSMENT: This is an 88-year-old, male: 1. Syncopal episode. 2. Diabetes type 2. 3. Hypertension. 4. Hypercholesterolemia. 5. Alzheimer's dementia. 6. Glaucoma. 7. Iron def anemia 8. right bundle branch block TREATMENT: 1. Syncopal episode. This may be secondary to orthostatic hypotension. Cardiology consultation has been obtained with Dr. Beka Saleh. Initial troponin level was within normal limits. We will follow recommendations of Cardiology. 2. Diabetes type 2. NovoLog sliding scale has been instituted. 3. Hypertension. Continue lisinopril as above. 4. Hypercholesterolemia. Continue atorvastatin as above. 5. Alzheimer's dementia. Continue as above. 6. Glaucoma. Continue latanoprost as above. Darren Pineda MD Nov 06, 2019 17:19
--- NOTE | 2019-11-06 17:36 | Cardiology Progress Note ---
Assessment/Plan Assessment/Plan 1. Syncopal episode. 2. Hypotension resolved 3. Recent fall with subdural hematoma. 4. History of colon cancer, status post resection. 5. Iron deficiency. 6. Anemia. 7. B12 insufficiency. 8. Chronic renal insufficiency. 9. Right bundle-branch conduction defect. 10. Diabetes mellitus. 11. Confusion related to Ativan resolving tele sinus off ct of head noted trop min elevated demand related repeat ekg sinus rbb echo prelim showed normal motion blood and urin cx neg oxygen sat is fine off ativan ok to dc back to snf from cardiac view point d/w dr blackburn Subjective Cardiovascular: Denies: chest pain, lightheadedness, palpitations Respiratory: Denies: cough, shortness of breath Gastrointestinal/Abdominal: Denies: abdominal pain Subjective aswake and responsive Objective Last 24 Hour Vital Signs Date Time Temp Pulse Resp B/P (MAP) Pulse Ox O2 Delivery O2 Flow Rate FiO2 11/06/19 16:00 97.9 97 18 138/59 (85) 92 11/06/19 16:00 93 11/06/19 12:00 92 11/06/19 12:00 97.2 86 20 119/67 (84) 98 11/06/19 09:00 Room Air 11/06/19 08:00 97.0 92 18 115/70 (85) 98 11/06/19 08:00 85 11/06/19 04:00 97.9 105 20 105/80 (88) 97 11/06/19 04:00 105 11/06/19 00:00 85 11/06/19 00:00 97.5 85 20 142/86 (104) 97 11/05/19 21:00 Room Air 11/05/19 20:21 91 16 96 Room Air 21 11/05/19 20:00 91 11/05/19 20:00 99.0 91 19 139/84 (102) 96 General Appearance: no apparent distress, alert, other - eatign feeding himself Neck: supple Cardiovascular: normal rate Respiratory/Chest: lungs clear Abdomen: normal bowel sounds, non tender, soft Extremities: no swelling Intake and Output 11/05/19 11/06/19 19:00 07:00 Intake Total 440 ml Output Total 450 ml Balance -10 ml Intake Oral 240 ml IV Total 200 ml Output Urine Total 450 ml Laboratory Tests Test 11/05/19 21:03 11/06/19 04:00 11/06/19 06:28 11/06/19 09:05 Troponin I 0.201 ng/mL (0.000-0.056) 0.136 ng/mL (0.000-0.056) Sodium Level 135 MMOL/L (136-145) L Potassium Level 3.9 MMOL/L (3.5-5.1) Chloride Level 103 MMOL/L (98-107) Carbon Dioxide Level 20 MMOL/L (21-32) L Anion Gap 12 mmol/L (5-15) Blood Urea Nitrogen 22 mg/dL (7-18) H Creatinine 1.4 MG/DL (0.55-1.30) H Estimat Glomerular Filtration Rate 47.9 mL/min (>60) Glucose Level 119 MG/DL (74-106) H Calcium Level 8.7 MG/DL (8.5-10.1) Random Vancomycin Level 11.0 ug/mL POC Whole Blood Glucose 114 MG/DL (74-106) H White Blood Count 7.4 K/UL (4.8-10.8) Red Blood Count 3.87 M/UL (4.70-6.10) L Hemoglobin 10.6 G/DL (14.2-18.0) L Hematocrit 33.9 % (42.0-52.0) L Mean Corpuscular Volume 87 FL (80-99) Mean Corpuscular Hemoglobin 27.5 PG (27.0-31.0) Mean Corpuscular Hemoglobin Concent 31.4 G/DL (32.0-36.0) L Red Cell Distribution Width 13.0 % (11.6-14.8) Platelet Count 326 K/UL (150-450) Mean Platelet Volume 5.1 FL (6.5-10.1) L Neutrophils (%) (Auto) 70.3 % (45.0-75.0) Lymphocytes (%) (Auto) 14.5 % (20.0-45.0) L Monocytes (%) (Auto) 13.7 % (1.0-10.0) H Eosinophils (%) (Auto) 0.6 % (0.0-3.0) Basophils (%) (Auto) 0.9 % (0.0-2.0) Test 11/06/19 12:10 POC Whole Blood Glucose 142 MG/DL (74-106) H Microbiology Date/Time Source Procedure Growth Status 11/04/19 14:00 Indwelling Cath Urine Culture - Preliminary NO GROWTH AFTER 24 HOURS Resulted Beka Saleh MD Nov 06, 2019 17:36
[2019-11-06 20:00] VITALS: BP 129/84
[2019-11-07] VITALS: BP 117/55
[2019-11-07 04:00] VITALS: BP 102/64
[2019-11-07] MEDS: NovoLOG Insulin Flexpen SUBQ SCH ×3 (06:30→17:03)
[2019-11-07 07:14] LABS: BASOPHILS % (AUTO) 0.6 % (0.0-2.0); EOSINOPHILS % (AUTO) 0.7 % (0.0-3.0); HEMATOCRIT 30.9 % (42.0-52.0); HEMOGLOBIN 9.8 G/DL (14.2-18.0); LYMPHOCYTES % (AUTO) 11.2 % (20.0-45.0); MEAN CORPUSCULAR VOLUME 87 FL (80-99); MONOCYTES % (AUTO) 13.6 % (1.0-10.0); NEUTROPHILS % (AUTO) 73.9 % (45.0-75.0); PLATELET COUNT 300 K/UL (150-450); RED BLOOD COUNT 3.54 M/UL (4.70-6.10); WHITE BLOOD COUNT 8.5 K/UL (4.8-10.8)
--- NOTE | 2019-11-07 07:26 | Cardiology Progress Note ---
Assessment/Plan Assessment/Plan 1. Syncopal episode. 2. Hypotension resolved 3. Recent fall with subdural hematoma. 4. History of colon cancer, status post resection. 5. Iron deficiency. 6. Anemia. 7. B12 insufficiency. 8. Chronic renal insufficiency. 9. Right bundle-branch conduction defect. 10. Diabetes mellitus. 11. Confusion related to Ativan resolving tele sinus ct of head noted trop min elevated demand related repeat ekg sinus rbbb echo prelim showed normal motion blood and urin cx neg oxygen sat is fine off ativan ok to dc back to snf from cardiac view point will ask for orthostatic vital to be repat and called to me Subjective Cardiovascular: Denies: chest pain, lightheadedness Respiratory: Denies: shortness of breath Gastrointestinal/Abdominal: Denies: abdominal pain Subjective aswake and responsive Objective Last 24 Hour Vital Signs Date Time Temp Pulse Resp B/P (MAP) Pulse Ox O2 Delivery O2 Flow Rate FiO2 11/07/19 04:00 97.9 74 20 102/64 (77) 98 11/07/19 03:51 80 11/07/19 00:00 85 11/07/19 00:00 98.7 75 20 117/55 (75) 96 11/06/19 21:00 Room Air 11/06/19 20:15 76 18 95 Room Air 21 11/06/19 20:00 100 11/06/19 20:00 97.5 99 18 129/84 (99) 99 11/06/19 16:00 97.9 97 18 138/59 (85) 92 11/06/19 16:00 93 11/06/19 12:00 92 11/06/19 12:00 97.2 86 20 119/67 (84) 98 11/06/19 09:00 Room Air 11/06/19 08:00 97.0 92 18 115/70 (85) 98 11/06/19 08:00 85 General Appearance: no apparent distress, alert Neck: supple Cardiovascular: normal rate Respiratory/Chest: lungs clear Abdomen: normal bowel sounds, non tender, soft Extremities: no swelling Intake and Output 11/06/19 11/07/19 19:00 07:00 Intake Total 240 ml Output Total 200 ml Balance 40 ml Intake Oral 240 ml Output Urine Total 200 ml Laboratory Tests Test 11/06/19 09:05 11/06/19 12:10 11/07/19 05:05 11/07/19 06:21 White Blood Count 7.4 K/UL (4.8-10.8) 8.5 K/UL (4.8-10.8) Red Blood Count 3.87 M/UL (4.70-6.10) L 3.54 M/UL (4.70-6.10) L Hemoglobin 10.6 G/DL (14.2-18.0) L 9.8 G/DL (14.2-18.0) L Hematocrit 33.9 % (42.0-52.0) L 30.9 % (42.0-52.0) L Mean Corpuscular Volume 87 FL (80-99) 87 FL (80-99) Mean Corpuscular Hemoglobin 27.5 PG (27.0-31.0) 27.6 PG (27.0-31.0) Mean Corpuscular Hemoglobin Concent 31.4 G/DL (32.0-36.0) L 31.6 G/DL (32.0-36.0) L Red Cell Distribution Width 13.0 % (11.6-14.8) 13.0 % (11.6-14.8) Platelet Count 326 K/UL (150-450) 300 K/UL (150-450) Mean Platelet Volume 5.1 FL (6.5-10.1) L 5.3 FL (6.5-10.1) L Neutrophils (%) (Auto) 70.3 % (45.0-75.0) 73.9 % (45.0-75.0) Lymphocytes (%) (Auto) 14.5 % (20.0-45.0) L 11.2 % (20.0-45.0) L Monocytes (%) (Auto) 13.7 % (1.0-10.0) H 13.6 % (1.0-10.0) H Eosinophils (%) (Auto) 0.6 % (0.0-3.0) 0.7 % (0.0-3.0) Basophils (%) (Auto) 0.9 % (0.0-2.0) 0.6 % (0.0-2.0) POC Whole Blood Glucose 142 MG/DL (74-106) H 131 MG/DL (74-106) H Sodium Level Pending Potassium Level Pending Chloride Level Pending Carbon Dioxide Level Pending Blood Urea Nitrogen Pending Creatinine Pending Estimat Glomerular Filtration Rate Pending Glucose Level Pending Calcium Level Pending Microbiology Date/Time Source Procedure Growth Status 11/04/19 14:00 Indwelling Cath Urine Culture - Final NO GROWTH AFTER 48 HOURS Complete Beka Saleh MD Nov 07, 2019 07:26
[2019-11-07 07:27] LABS: ANION GAP 10 mmol/L (5-15); BLOOD UREA NITROGEN 25 mg/dL (7-18); CALCIUM 8.9 MG/DL (8.5-10.1); CARBON DIOXIDE 22 MMOL/L (21-32); CHLORIDE 102 MMOL/L (98-107); CREATININE 1.6 MG/DL (0.55-1.30); POTASSIUM 4.6 MMOL/L (3.5-5.1); SODIUM 134 MMOL/L (136-145)
[2019-11-07 08:00] VITALS: BP_SYST 117; BP_SYST 139; BP_DIAS 58; BP_DIAS 76
[2019-11-07] MEDS: Memantine 5 MG TAB ORAL SCH (08:24)
[2019-11-07] MEDS: Heparin 5000 units/ml inj SUBQ SCH (08:25)
[2019-11-07] MEDS ORDERED: Docusate 100mg cap ORAL SCH (09:00)
[2019-11-07 12:00] VITALS: BP 114/59
[2019-11-07] MEDS ORDERED: JANUVIA50 MG ORAL (13:14)
--- NOTE | 2019-11-07 13:16 | Pulmonology Progress Note ---
Subjective ROS Limited/Unobtainable: No Interval Events: looks comfortable Constitutional: Reports: no symptoms HEENT: Repors: no symptoms Allergies: Coded Allergies: ATENOLOL (Verified Allergy, Unknown, 05/23/16) LOSARTAN (Verified Allergy, Unknown, 05/23/16) SIMVASTATIN (Verified Allergy, Unknown, 05/23/16) Uncoded Allergies: AMLIODIPINE (Allergy, Unknown, 05/23/16) PENICILLIN (Allergy, Unknown, 05/23/16) Objective Last 24 Hour Vital Signs Date Time Temp Pulse Resp B/P (MAP) Pulse Ox O2 Delivery O2 Flow Rate FiO2 11/07/19 12:00 97.9 80 18 114/59 (77) 99 11/07/19 09:00 80 76 11/07/19 09:00 Room Air 11/07/19 08:33 78 18 97 Room Air 21 11/07/19 08:00 78 11/07/19 08:00 98.6 80 18 117/58 (77) 96 11/07/19 04:00 97.9 74 20 102/64 (77) 98 11/07/19 03:51 80 11/07/19 00:00 85 11/07/19 00:00 98.7 75 20 117/55 (75) 96 11/06/19 21:00 Room Air 11/06/19 20:15 76 18 95 Room Air 21 11/06/19 20:00 100 11/06/19 20:00 97.5 99 18 129/84 (99) 99 11/06/19 16:00 97.9 97 18 138/59 (85) 92 11/06/19 16:00 93 Intake and Output 11/06/19 11/07/19 19:00 07:00 Intake Total 240 ml Output Total 200 ml Balance 40 ml Intake Oral 240 ml Output Urine Total 200 ml General Appearance: no acute distress, cachetic HEENT: normocephalic Respiratory: chest wall non-tender, lungs clear, normal breath sounds Cardiovascular: normal rate, regular rhythm Abdomen: normal bowel sounds Genitourinary: normal external genitalia Extremities: no clubbing Skin: no rash, no lesions Microbiology Date/Time Source Procedure Growth Status 11/04/19 14:00 Indwelling Cath Urine Culture - Final NO GROWTH AFTER 48 HOURS Complete Laboratory Tests 11/07/19 05:05: POC Whole Blood Glucose 131H 11/07/19 06:21: White Blood Count 8.5, Red Blood Count 3.54L, Hemoglobin 9.8L, Hematocrit 30.9L , Mean Corpuscular Volume 87, Mean Corpuscular Hemoglobin 27.6, Mean Corpuscular Hemoglobin Concent 31.6L, Red Cell Distribution Width 13.0, Platelet Count 300, Mean Platelet Volume 5.3L, Neutrophils (%) (Auto) 73.9, Lymphocytes (%) (Auto) 11.2L, Monocytes (%) (Auto) 13.6H, Eosinophils (%) (Auto ) 0.7, Basophils (%) (Auto) 0.6, Sodium Level 134L, Potassium Level 4.6, Chloride Level 102, Carbon Dioxide Level 22, Anion Gap 10, Blood Urea Nitrogen 25H, Creatinine 1.6H, Estimat Glomerular Filtration Rate 41.1, Glucose Level 135H, Calcium Level 8.9 11/07/19 11:37: POC Whole Blood Glucose 132H Current Medications Medications (Trade) Dose Ordered Sig/James Route PRN Reason Start Time Stop Time Status Last Admin Dose Admin Acetaminophen (Tylenol) 650 mg Q4H PRN ORAL fever 11/03/19 17:45 12/03/19 17:44 Albuterol/ Ipratropium (Albuterol/ Ipratropium) 3 ml Q4H PRN HHN Shortness of Breath 11/03/19 17:45 11/08/19 17:44 Dextrose (Dextrose 50%) 25 ml Q30M PRN IV Hypoglycemia 11/03/19 18:00 02/01/20 17:59 Dextrose (Dextrose 50%) 50 ml Q30M PRN IV Hypoglycemia 11/03/19 18:00 02/01/20 17:59 Docusate Sodium (Colace) 100 mg TWICE A DAY ORAL 11/07/19 09:00 12/07/19 08:59 11/07/19 08:24 Heparin Sodium (Porcine) (Heparin 5000 units/ml) 5,000 units EVERY 12 HOURS SUBQ 11/03/19 21:00 12/18/19 20:59 11/07/19 08:25 Insulin Aspart (NovoLOG) BEFORE MEALS AND HS SUBQ 11/03/19 21:00 02/01/20 20:59 11/06/19 21:00 Levofloxacin (Levaquin) 250 mg Q24H ORAL 11/07/19 16:00 11/14/19 15:59 Memantine (Namenda) 5 mg TWICE A DAY ORAL 11/03/19 18:00 12/03/19 17:59 11/07/19 08:24 Ondansetron HCl (Zofran) 4 mg Q6H PRN IVP Nausea & Vomiting 11/03/19 17:45 12/03/19 17:44 Temazepam (Restoril) 15 mg HSPRN PRN ORAL Insomnia 11/03/19 17:45 11/10/19 17:44 Vancomycin HCl ([facility] pharmacy to dose) 1 ea DAILY PRN MISC . 11/03/19 18:00 12/03/19 17:59 Assessment/Plan Problems: (1) Acute dehydration (2) Syncope (3) History of hypertension (4) History of diabetes mellitus Assessment/Plan cardio cleared for dc renal function improving slowly bun/creatinine coming down Echo showing EF of 60% Renal consult called watch electrolytes pt/ot CT of head: Age related senescent changes. No acute intracranial abnormality. Right sphenoid sinus disease. dc meds reviewed: Metformin discontinued. Cherelle Vera MD Nov 07, 2019 13:16
--- NOTE | 2019-11-07 19:31 | Internal Med Progress Note ---
Subjective Physician Name Darren Spencer Attending Physician Darren Spencer MD Current Medications Medications (Trade) Dose Ordered Sig/James Route PRN Reason Start Time Stop Time Status Last Admin Dose Admin Acetaminophen (Tylenol) 650 mg Q4H PRN ORAL fever 11/03/19 17:45 12/03/19 17:44 Albuterol/ Ipratropium (Albuterol/ Ipratropium) 3 ml Q4H PRN HHN Shortness of Breath 11/03/19 17:45 11/08/19 17:44 Dextrose (Dextrose 50%) 25 ml Q30M PRN IV Hypoglycemia 11/03/19 18:00 02/01/20 17:59 Dextrose (Dextrose 50%) 50 ml Q30M PRN IV Hypoglycemia 11/03/19 18:00 02/01/20 17:59 Docusate Sodium (Colace) 100 mg TWICE A DAY ORAL 11/07/19 09:00 12/07/19 08:59 11/07/19 08:24 Heparin Sodium (Porcine) (Heparin 5000 units/ml) 5,000 units EVERY 12 HOURS SUBQ 11/03/19 21:00 12/18/19 20:59 11/07/19 08:25 Insulin Aspart (NovoLOG) BEFORE MEALS AND HS SUBQ 11/03/19 21:00 02/01/20 20:59 11/07/19 17:03 Levofloxacin (Levaquin) 250 mg Q24H ORAL 11/07/19 16:00 11/14/19 15:59 11/07/19 16:54 Memantine (Namenda) 5 mg TWICE A DAY ORAL 11/03/19 18:00 12/03/19 17:59 11/07/19 08:24 Ondansetron HCl (Zofran) 4 mg Q6H PRN IVP Nausea & Vomiting 11/03/19 17:45 12/03/19 17:44 Sitagliptin Phosphate (Januvia) 25 mg ACBREAKFAST ORAL 11/08/19 06:30 12/08/19 06:29 Temazepam (Restoril) 15 mg HSPRN PRN ORAL Insomnia 11/03/19 17:45 11/10/19 17:44 Vancomycin HCl ([facility] pharmacy to dose) 1 ea DAILY PRN MISC . 11/03/19 18:00 9/2/20 17:59 Allergies: Coded Allergies: ATENOLOL (Verified Allergy, Unknown, 05/23/16) LOSARTAN (Verified Allergy, Unknown, 05/23/16) SIMVASTATIN (Verified Allergy, Unknown, 05/23/16) Uncoded Allergies: AMLIODIPINE (Allergy, Unknown, 05/23/16) PENICILLIN (Allergy, Unknown, 05/23/16) Subjective awake, alert, responsive, severely cachectic and malnutrition, no acute distress. Objective Last Vital Signs Date Time Temp Pulse Resp B/P (MAP) Pulse Ox O2 Delivery O2 Flow Rate FiO2 11/07/19 12:00 86 11/07/19 12:00 97.9 18 114/59 (77) 99 11/07/19 09:00 Room Air 11/07/19 08:33 21 Laboratory Tests Test 11/07/19 05:05 11/07/19 06:21 11/07/19 11:37 POC Whole Blood Glucose 131 MG/DL (74-106) H 132 MG/DL (74-106) H White Blood Count 8.5 K/UL (4.8-10.8) Red Blood Count 3.54 M/UL (4.70-6.10) L Hemoglobin 9.8 G/DL (14.2-18.0) L Hematocrit 30.9 % (42.0-52.0) L Mean Corpuscular Volume 87 FL (80-99) Mean Corpuscular Hemoglobin 27.6 PG (27.0-31.0) Mean Corpuscular Hemoglobin Concent 31.6 G/DL (32.0-36.0) L Red Cell Distribution Width 13.0 % (11.6-14.8) Platelet Count 300 K/UL (150-450) Mean Platelet Volume 5.3 FL (6.5-10.1) L Neutrophils (%) (Auto) 73.9 % (45.0-75.0) Lymphocytes (%) (Auto) 11.2 % (20.0-45.0) L Monocytes (%) (Auto) 13.6 % (1.0-10.0) H Eosinophils (%) (Auto) 0.7 % (0.0-3.0) Basophils (%) (Auto) 0.6 % (0.0-2.0) Sodium Level 134 MMOL/L (136-145) L Potassium Level 4.6 MMOL/L (3.5-5.1) Chloride Level 102 MMOL/L (98-107) Carbon Dioxide Level 22 MMOL/L (21-32) Anion Gap 10 mmol/L (5-15) Blood Urea Nitrogen 25 mg/dL (7-18) H Creatinine 1.6 MG/DL (0.55-1.30) H Estimat Glomerular Filtration Rate 41.1 mL/min (>60) Glucose Level 135 MG/DL (74-106) H Calcium Level 8.9 MG/DL (8.5-10.1) Intake and Output 11/06/19 11/07/19 19:00 07:00 Intake Total 240 ml Output Total 200 ml Balance 40 ml Intake Oral 240 ml Output Urine Total 200 ml Objective Physical Exam General: No acute distress, awake and responsive, less confuse. HEENT: NCAT, sclera anicteric, PERRL, EOMI. Neck: Supple, no significant jugular venous distention, Lungs: Fair inspiratory effort, clear to auscultation bilaterally, no Wheeze or Rales. Heart: Regular rate and rhythm, normal S1/S2, no murmurs Abdomen: soft, nontender, nondistended. Normoactive bowel sounds. / Rectal: Refused and deferred. Extremities: No Cyanosis , clubbing or edema. Neuro: A&O x 3, Able to move all extremities Skin: warm, no rashes or lesions Assessment/Plan Assessment/Plan ASSESSMENT: This is an 88-year-old, male: 1. Syncopal episode. 2. Diabetes type 2. 3. Hypertension. 4. Hypercholesterolemia. 5. Alzheimer's dementia. 6. Glaucoma. 7. Iron def anemia 8. right bundle branch block TREATMENT: 1. Syncopal episode. This may be secondary to orthostatic hypotension. Cardiology consultation has been obtained with Dr. Beka Saleh. Initial troponin level was within normal limits. We will follow recommendations of Cardiology. 2. Diabetes type 2. NovoLog sliding scale has been instituted. 3. Hypertension. Continue lisinopril as above. 4. Hypercholesterolemia. Continue atorvastatin as above. 5. Alzheimer's dementia. Continue as above. 6. Glaucoma. Continue latanoprost as above. patient cleared by cardiology, DC back to nursing facility via ambulance. Darren Spencer MD Nov 07, 2019 19:31
[2019-11-08] MEDS ORDERED: sitaGLIPtin 25mg tab ORAL SCH (06:30)
--- NOTE | 2019-11-09 13:39 | Discharge Summary ---
Discharge Summary Discharge Summary _ DATE OF ADMISSION: 11/03/2019 DATE OF DISCHARGE: 11/07/2019 DISCHARGED BY: Dr. Darren Spencer CONSULTANTS: Dr. Cherelle Saleh BRIEF HOSPITAL COURSE: Patient is an 88-year-old male, who presented with chief complaint of "I passed out." The patient is a resident of Health system. The patient was apparently in the restroom and lost consciousness for a few seconds. The patient was caught by staff who was present. Patient denied any injury. He had a recent hospitalization at [facility] for evaluation of a fall. At that time, etiology of fall was not found. He had a CAT scan that showed a small dural hematoma and was followed by neurosurgery and was eventually cleared to be stable enough for discharge. Patient had another fall and was found at the long-term initially nonresponsive for approximately 1 minute and blood pressure was low in the 60s. He eventually became more alert and blood pressure improved. Patient was taken to ED for further evaluation. Patient has medical history significant for type 2 diabetes, hypertension, hypercholesterolemia, Alzheimer's dementia including glaucoma. Upon evaluation at ED, he was initially hypotensive. Blood work did not show any leukocytosis. Hemoglobin hematocrit were stable. Troponin was negative. BNP 915. D-dimer negative. CRP normal. Creatinine 1.8 and BUN 57. Rapid COVID-19 was negative. EKG was in atrial fibrillation with no acute ischemic changes. Chest x-ray did not show any acute process. He was given IV hydration and blood pressure improved with fluids. He was eventually admitted for evaluation of syncope. Patient was admitted to monitored floor. Patient did not endorse any signs or symptoms of coronary syndrome. Troponin was normal. He was continued on IV fluid. Repeat CAT scan of the head showed age-related senescent changes. No acute intracranial abnormality. BNP was elevated. IV fluid was discontinued. He was given low-dose Lasix. Ativan was discontinued as this was contributing to patient's confusion. Blood and urine culture did not isolate any growth. Echocardiogram showed normal motion. Patient was eventually cleared for discharge back to long-term. FINAL DIAGNOSES: Syncope due to orthostatic hypotension Diabetes type 2 Hypertension Hypercholesterolemia Alzheimer's dementia Glaucoma Iron deficiency Recent fall with subdural hematoma History of colon cancer, status post resection B12 insufficiency Chronic renal insufficiency Right bundle branch conduction defect DISPOSITION: Patient was discharged back to [facility]. DISCHARGE MEDICATIONS: Refer to Discharge Medication List. DC metformin I have been assigned to complete a discharge summary on this account, I was not involved with the patient's management.--YAZMIN Thompson Jacqueline Robles NP Nov 09, 2019 13:39
== END 2019-11-07 18:15 | DRG 312 ==
LOC: EDSEX 14:35 → EDBD 14:35 → EMR 15:33 → EDBEDREQ 15:45 → 2E 16:00 → EDBEDREQ 17:08
DX: I95.1 Orthostatic hypotension (principal); E86.0 Dehydration; Z88.0 Allergy status to penicillin; Z88.8 Allergy status to other drugs, medicaments and biological substances; G30.9 Alzheimer's disease, unspecified; F02.80 Dementia in other diseases classified elsewhere, unspecified severity, without behavioral disturbance, psychotic disturbance, mood disturbance, and anxiety; H40.9 Unspecified glaucoma; Z79.82 Long term (current) use of aspirin; Z79.84 Long term (current) use of oral hypoglycemic drugs; E78.00 Pure hypercholesterolemia, unspecified; S06.5X9D Traumatic subdural hemorrhage with loss of consciousness of unspecified duration, subsequent encounter; W19.XXXD Unspecified fall, subsequent encounter; I12.9 Hypertensive chronic kidney disease with stage 1 through stage 4 chronic kidney disease, or unspecified chronic kidney disease; E11.22 Type 2 diabetes mellitus with diabetic chronic kidney disease; N18.9 Chronic kidney disease, unspecified; Z85.038 Personal history of other malignant neoplasm of large intestine; D50.9 Iron deficiency anemia, unspecified; E53.8 Deficiency of other specified B group vitamins; I45.10 Unspecified right bundle-branch block; N40.0 Benign prostatic hyperplasia without lower urinary tract symptoms; E11.319 Type 2 diabetes mellitus with unspecified diabetic retinopathy without macular edema; Z87.891 Personal history of nicotine dependence; R41.0 Disorientation, unspecified; T42.4X5A Adverse effect of benzodiazepines, initial encounter; I48.91 Unspecified atrial fibrillation
CPT/HCPCS: 36415; 70450; 71045; 76770; 80048; 80053; 80202; 81001; 81003; 82043; 82550; 82728; 82962; 83605; 83735; 83880; 83935; 84300; 84484; 84550; 85025; 85379; 85610; 85651; 85730; 86140; 87040; 87081; 87086; 89050; 93005; 93306; 94664; 96361; 96365; 99285; J1815; J7030; U0002

== ENCOUNTER 2019-12-02 18:19 | Inpatient (IN) | payer MEDICARE, MEDICAID ==
[~2019-12-02] VITALS: Ht 167.6 cm; Wt 38.0 kg
[~2019-12-02 18:19] MED LIST changes: +ASPIRIN81 MG ORAL; +HUMALOG100 UNIT/4 SUBQ; +JANUVIA50 MG ORAL; +NAMENDA5 MG ORAL; +SENNA LAXATIVE8.6 MG PO
[2019-12-02] MEDS ORDERED: LEXAPRO10 MG ORAL (18:29)
[2019-12-02] MEDS ORDERED: FERROUS SULFAT325 MG ORAL (18:29)
[2019-12-02] MEDS ORDERED: JANUVIA50 MG ORAL (18:29)
--- NOTE | 2019-12-02 18:29 | NUR ---
ED Nurse Note: Pt arrived with [facility] unit 190 from snf, per ems pt exhibited confusion x 2 days, right side weakness and right sided facial droop. pt was said to have a baseline of aox4 and currently pt is aox 1-2. Pt was swabbed for COVID and sent for a stat CT.
[2019-12-02 18:31] VITALS: BP 148/77
--- NOTE | 2019-12-02 18:34 | Emergency Room Report ---
History of Present Illness General Chief Complaint: AMS Source: Medical Record, EMS Present Illness HPI Disclaimer: Please note that this report is being documented using DRAGON technology. This can lead to erroneous entry secondary to incorrect interpretation by the dictating instrument. HPI: 89-year-old male presents from [facility] for evaluation of altered level of consciousness. Symptoms present 2 days. Unknown time of onset but report per wire machine operator states facial droop and paralysis with changes in mentation for at least 2 days. They states he was previously verbal but now not communicating verbally. He has a history of diabetes, hypertension, hypercholesterolemia, Alzheimer's dementia and prior subdural hematoma from a fall. Patient appears to understand. Can communicate but is hard to understand him. Seems to be able to acknowledge yes and no. No spontaneous movement of the right side. Patient is full code according to EMS. PMH: Diabetes, hypertension, Alzheimer's dementia, prior subdural, colon cancer status post treatment PSH: Unable to obtain from patient Allergies: Amlodipine, atenolol, losartan, penicillin and simvastatin listed in chart Social Hx: Unable to obtain from patient Allergies: Coded Allergies: ATENOLOL (Verified Allergy, Unknown, 05/23/16) LOSARTAN (Verified Allergy, Unknown, 05/23/16) SIMVASTATIN (Verified Allergy, Unknown, 05/23/16) Uncoded Allergies: AMLIODIPINE (Allergy, Unknown, 05/23/16) PENICILLIN (Allergy, Unknown, 12/03/19) Tolerated Ceftriaxone on 12/02/19 COVID-19 Screening Contact w/high risk pt: No Experienced COVID-19 symptoms?: No Nursing Documentation-PMH Past Medical History: No History, Except For Hx Hypertension: Yes Hx Diabetes: Yes Review of Systems All Other Systems: limited - Unable to obtain from patient due to clinical condition Physical Exam General: Awake, can respond nonverbally HEENT: NC/AT. EOMI. PERRLA. Unable to assess visual reece. No apparent nystagmus. Edentulous. Mild right-sided facial droop though difficult to fully assess. Very dry mucous membranes Cardiovascular: RRR. S1 and S2 normal. No murmur appreciated Resp: Normal work of breathing. No cough, wheezing or crackles appreciated Abdomen: Abdomen is soft, nondistended. Nontender Skin: Intact. No abrasions, laceration or rash over the exposed skin MSK: Appears frail with decreased muscle bulk diffusely. Lower extremities held in contraction. No spontaneous movement of the right upper or lower extremity. Right arm falls to the bed. Right lower extremity in contracture - discomfort with passive ROM testing. There is drift in the left upper extremity. Unable to assess the left lower. Neuro: Awakens to light stimulation, appears to somewhat understand. Mild right -sided facial droop. Unable to assess for dysarthria as he is very dry mucous membranes and is edentulous. Difficult to assess for ataxia. Sensation to touch appears to be intact over the upper and lower extremities. Cannot assess speech or fund of knowledge, neglect or aphasia NIH: 19 Procedures Critical Care Time Critical Care Time Total critical care time: Approximately 45 minutes Due to a high probability of clinically significant, life threatening deterioration, the patient required the highest level of preparedness to intervene emergently and I personally spent this critical care time directly and personally managing the patient. This critical care time included obtaining a history, examining the patient, pulse oximetry, ordering and reviewing studies , ordering treatments, evaluating response to treatment and updating management plan as needed, frequent reassessment and discussion with other providers as well as arranging for ultimate disposition. This critical to care time was performed to assess and manage the high probability of life-threatening deterioration that could result in multiorgan failure. This critical care time is separate from the separately billable procedures and treating other patients. Medical Decision Making Diagnostic Impression: Primary Impression: Altered level of consciousness Additional Impressions: Unilateral weakness Acute dehydration Stroke ER Course 89-year-old male with a history of prior subdural hematoma, dementia, multiple medical conditions presents from nursing facility after 2 days of altered mental status with right side paralysis. Concern for CVA, intracranial bleed, seizure, postictal state, major electrolyte abnormality, severe sepsis among others. Difficult exam given the patient's current condition though NIH scale is between 15 and 20. Patient taken for stat CT and broad labs ordered. Patient is outside the window for TPA as symptoms have been present for 2 days according to EMS. Stat CT without contrast did not show evidence of mass, bleed or significant acute changes compared to prior studies. Age-related atrophy noted. Still maintained strong suspicion for stroke and patient will be sent for MRI. Will admit to his PMD, Dr. Spencer Labs Test 12/02/19 18:25 9/1/20 19:00 12/02/19 19:15 12/02/19 21:14 Sodium Level 139 MMOL/L (136-145) Potassium Level 4.7 MMOL/L (3.5-5.1) Chloride Level 105 MMOL/L (98-107) Carbon Dioxide Level 25 MMOL/L (21-32) Anion Gap 9 mmol/L (5-15) Blood Urea Nitrogen 63 mg/dL (7-18) Creatinine 1.8 MG/DL (0.55-1.30) Estimat Glomerular Filtration Rate 35.8 mL/min (>60) Glucose Level 169 MG/DL (74-106) Calcium Level 10.2 MG/DL (8.5-10.1) Total Bilirubin 0.2 MG/DL (0.2-1.0) Aspartate Amino Transf (AST/SGOT) 25 U/L (15-37) Alanine Aminotransferase (ALT/SGPT) 10 U/L (12-78) Alkaline Phosphatase 79 U/L (46-116) Total Protein 7.9 G/DL (6.4-8.2) Albumin 2.9 G/DL (3.4-5.0) Globulin 5.0 g/dL Albumin/Globulin Ratio 0.6 (1.0-2.7) Triglycerides Level 95 MG/DL (30-150) Cholesterol Level 173 MG/DL (< 200) LDL Cholesterol 110 mg/dL (<100) HDL Cholesterol 45 MG/DL (40-60) Cholesterol/HDL Ratio 3.8 (3.3-4.4) Urine Color Pale yellow Urine Appearance Slightly cloudy Urine pH 5 (4.5-8.0) Urine Specific [place] 1.010 (1.005-1.035) Urine Protein 2+ (NEGATIVE) Urine Glucose (UA) Negative (NEGATIVE) Urine Ketones Negative (NEGATIVE) Urine Blood 3+ (NEGATIVE) Urine Nitrite Negative (NEGATIVE) Urine Bilirubin Negative (NEGATIVE) Urine Urobilinogen Normal MG/DL (0.0-1.0) Urine Leukocyte Esterase 3+ (NEGATIVE) Urine RBC 2-4 /HPF (0 - 0) Urine WBC Tntc /HPF (0 - 0) Urine Squamous Epithelial Cells None /LPF (NONE/OCC) Urine Bacteria Many /HPF (NONE) White Blood Count 12.0 K/UL (4.8-10.8) Red Blood Count 4.25 M/UL (4.70-6.10) Hemoglobin 11.7 G/DL (14.2-18.0) Hematocrit 37.2 % (42.0-52.0) Mean Corpuscular Volume 87 FL (80-99) Mean Corpuscular Hemoglobin 27.4 PG (27.0-31.0) Mean Corpuscular Hemoglobin Concent 31.4 G/DL (32.0-36.0) Red Cell Distribution Width 13.7 % (11.6-14.8) Platelet Count 365 K/UL (150-450) Mean Platelet Volume 5.2 FL (6.5-10.1) Neutrophils (%) (Auto) 85.3 % (45.0-75.0) Lymphocytes (%) (Auto) 6.9 % (20.0-45.0) Monocytes (%) (Auto) 6.7 % (1.0-10.0) Eosinophils (%) (Auto) 0.5 % (0.0-3.0) Basophils (%) (Auto) 0.5 % (0.0-2.0) Prothrombin Time 10.7 SEC (9.30-11.50) Prothromb Time International Ratio 1.0 (0.9-1.1) Activated Partial Thromboplast Time 25 SEC (23-33) Lactic Acid Level 1.90 mmol/L (0.4-2.0) Phosphorus Level 2.8 MG/DL (2.5-4.9) Magnesium Level 2.3 MG/DL (1.8-2.4) Total Creatine Kinase 155 U/L (26-308) Creatine Kinase MB 3.6 NG/ML (0.0-3.6) Creatine Kinase MB Relative Index 2.3 Troponin I 0.216 ng/mL (0.000-0.056) POC Whole Blood Glucose 191 MG/DL (74-106) Test 12/03/19 03:50 12/03/19 05:37 12/03/19 11:51 12/03/19 15:00 White Blood Count 17.0 K/UL (4.8-10.8) Red Blood Count 3.60 M/UL (4.70-6.10) Hemoglobin 9.9 G/DL (14.2-18.0) Hematocrit 31.2 % (42.0-52.0) Mean Corpuscular Volume 87 FL (80-99) Mean Corpuscular Hemoglobin 27.4 PG (27.0-31.0) Mean Corpuscular Hemoglobin Concent 31.6 G/DL (32.0-36.0) Red Cell Distribution Width 13.2 % (11.6-14.8) Platelet Count 334 K/UL (150-450) Mean Platelet Volume 5.4 FL (6.5-10.1) Neutrophils (%) (Auto) % (45.0-75.0) Lymphocytes (%) (Auto) % (20.0-45.0) Monocytes (%) (Auto) % (1.0-10.0) Eosinophils (%) (Auto) % (0.0-3.0) Basophils (%) (Auto) % (0.0-2.0) Differential Total Cells Counted 100 Neutrophils % (Manual) 92 % (45-75) Lymphocytes % (Manual) 3 % (20-45) Monocytes % (Manual) 5 % (1-10) Eosinophils % (Manual) 0 % (0-3) Basophils % (Manual) 0 % (0-2) Band Neutrophils 0 % (0-8) Platelet Estimate Adequate Platelet Morphology Normal Hypochromasia 2+ Anisocytosis 1+ Prothrombin Time 10.5 SEC (9.30-11.50) Prothromb Time International Ratio 0.9 (0.9-1.1) Activated Partial Thromboplast Time 29 SEC (23-33) Sodium Level 145 MMOL/L (136-145) Potassium Level 4.3 MMOL/L (3.5-5.1) Chloride Level 107 MMOL/L (98-107) Carbon Dioxide Level 26 MMOL/L (21-32) Anion Gap 12 mmol/L (5-15) Blood Urea Nitrogen 64 mg/dL (7-18) Creatinine 2.0 MG/DL (0.55-1.30) Estimat Glomerular Filtration Rate 31.7 mL/min (>60) Glucose Level 189 MG/DL (74-106) Uric Acid 8.3 MG/DL (2.6-7.2) Calcium Level 9.2 MG/DL (8.5-10.1) Total Bilirubin 0.2 MG/DL (0.2-1.0) Aspartate Amino Transf (AST/SGOT) 16 U/L (15-37) Alanine Aminotransferase (ALT/SGPT) 12 U/L (12-78) Alkaline Phosphatase 68 U/L (46-116) Ammonia 13 umol/L (11-32) Total Creatine Kinase 112 U/L (26-308) Troponin I 0.181 ng/mL (0.000-0.056) Total Protein 7.0 G/DL (6.4-8.2) Albumin 2.6 G/DL (3.4-5.0) Globulin 4.4 g/dL Albumin/Globulin Ratio 0.6 (1.0-2.7) Triglycerides Level 77 MG/DL (30-150) Cholesterol Level 145 MG/DL (< 200) LDL Cholesterol 91 mg/dL (<100) HDL Cholesterol 41 MG/DL (40-60) Cholesterol/HDL Ratio 3.5 (3.3-4.4) Thyroid Stimulating Hormone (TSH) 0.775 uiU/mL (0.358-3.740) POC Whole Blood Glucose 177 MG/DL (74-106) 133 MG/DL (74-106) Urine Random Sodium < 20 mmol/L (20-110) Test 12/03/19 15:56 12/03/19 21:56 12/04/19 05:43 12/04/19 05:54 POC Whole Blood Glucose 129 MG/DL (74-106) 146 MG/DL (74-106) 140 MG/DL (74-106) White Blood Count 8.6 K/UL (4.8-10.8) Red Blood Count 3.55 M/UL (4.70-6.10) Hemoglobin 9.8 G/DL (14.2-18.0) Hematocrit 31.6 % (42.0-52.0) Mean Corpuscular Volume 89 FL (80-99) Mean Corpuscular Hemoglobin 27.6 PG (27.0-31.0) Mean Corpuscular Hemoglobin Concent 31.0 G/DL (32.0-36.0) Red Cell Distribution Width 14.2 % (11.6-14.8) Platelet Count 283 K/UL (150-450) Mean Platelet Volume 5.6 FL (6.5-10.1) Neutrophils (%) (Auto) 78.4 % (45.0-75.0) Lymphocytes (%) (Auto) 8.8 % (20.0-45.0) Monocytes (%) (Auto) 10.4 % (1.0-10.0) Eosinophils (%) (Auto) 1.9 % (0.0-3.0) Basophils (%) (Auto) 0.6 % (0.0-2.0) Erythrocyte Sedimentation Rate 52 MM/HR (0-20) Sodium Level 145 MMOL/L (136-145) Potassium Level 3.9 MMOL/L (3.5-5.1) Chloride Level 109 MMOL/L (98-107) Carbon Dioxide Level 27 MMOL/L (21-32) Anion Gap 9 mmol/L (5-15) Blood Urea Nitrogen 51 mg/dL (7-18) Creatinine 1.7 MG/DL (0.55-1.30) Estimat Glomerular Filtration Rate 38.2 mL/min (>60) Glucose Level 145 MG/DL (74-106) Uric Acid 7.7 MG/DL (2.6-7.2) Calcium Level 9.7 MG/DL (8.5-10.1) Phosphorus Level 3.3 MG/DL (2.5-4.9) Magnesium Level 2.3 MG/DL (1.8-2.4) Iron Level 18 ug/dL (50-175) Total Iron Binding Capacity 162 ug/dL (250-450) Percent Iron Saturation 11 % (15-50) Unsaturated Iron Binding 144 ug/dL (112-346) Ferritin 256 NG/ML (8-388) Total Bilirubin 0.2 MG/DL (0.2-1.0) Gamma Glutamyl Transpeptidase < 3 U/L (5-85) Aspartate Amino Transf (AST/SGOT) 21 U/L (15-37) Alanine Aminotransferase (ALT/SGPT) 10 U/L (12-78) Alkaline Phosphatase 75 U/L (46-116) Total Creatine Kinase 102 U/L (26-308) Troponin I 0.131 ng/mL (0.000-0.056) C-Reactive Protein, Quantitative 6.1 mg/dL (0.00-0.90) Pro-B-Type Natriuretic Peptide 3257 pg/mL (0-125) Total Protein 6.7 G/DL (6.4-8.2) Albumin 2.4 G/DL (3.4-5.0) Globulin 4.3 g/dL Albumin/Globulin Ratio 0.6 (1.0-2.7) Vitamin B12 Level 720 PG/ML (193-986) Folate 6.3 NG/ML (8.6-58.9) Thyroid Stimulating Hormone (TSH) 0.813 uiU/mL (0.358-3.740) Random Vancomycin Level 7.7 ug/mL Test 12/04/19 11:21 12/05/19 05:25 POC Whole Blood Glucose 104 MG/DL (74-106) EKG Diagnostic Results EKG Time: 18:46 Rate: normal Rhythm: NSR Other Impression Sinus rhythm, borderline left axis right bundle branch block pattern Rhythm Strip Diag. Results Rhythm Strip Time: 18:46 EP Interpretation: yes Rate: 81 Rhythm: NSR, no PVC's, no ectopy Chest X-Ray Diagnostic Results Chest X-Ray Diagnostic Results : Chest X-Ray Ordered: Yes # of Views/Limited/Complete: 1 View Indication: Other EP Interpretation: Yes Interpretation: no consolidation, no effusion, no pneumothorax, no acute cardiopulmonary disease Impression: No acute disease Electronically Signed by: Electronically signed by Dr. Shakir Rushing CT/MRI/US Diagnostic Results CT/MRI/US Diagnostic Results : Impression CT Head IMPRESSION: 1. Age-related atrophy and small vessel disease of aging, similar to that noted on the previous study. 2. No acute intracranial pathology. 3. If there is concern for etiology such as early acute lacunar infarcts, magnetic resonance imaging of the brain with diffusion-weighted sequences should be performed for follow-up Dictated By: Hans Odonnell M.D. Electronically Signed By: Hans Odonnell M.D. Signed Date/Time 12/02/19 [id number] CC: Shakir Rushing MD IMPRESSION: 1. Multifocal infarcts the largest of which are located within the norberto left of midline as well as the left frontal lobe medially. 2. Multifocal lacunar infarcts are noted scattered bilaterally including the cerebellar hemispheres and the left cerebellar peduncle. 3. Age-related changes. <MYCVCSECTION> Communications: 12/02/19 20:53 Call Doctor Regarding Stroke, called MD on 12/01 20:53 (- 07:00) Dictated By: Hans Odonnell M.D. Electronically Signed By: Hans Odonnell M.D. Signed Date/Time 12/02/192044 CC: Shakir Rushing MD; Darren Spencer MD Disposition: ADMITTED INPATIENT Condition: Serious Shakir Rushing MD Dec 02, 2019 18:34
--- NOTE | 2019-12-02 18:52 | Diagnostic Imaging Report ---
EXAM: CT Head Without Intravenous Contrast CLINICAL HISTORY: Weakness. TECHNIQUE: Axial computed tomography images of the head/brain without intravenous contrast. CTDI is 53.4 mGy and DLP is 1072.2 mGy-cm. One or more of the following dose reduction techniques were used: automated exposure control, adjustment of the mA and/or kV according to patient size, use of iterative reconstruction technique. COMPARISON: 11/05/2019. FINDINGS: Brain: Small vessel disease of aging. No abnormal extra-axial collection. No hemorrhage. Midline shift: No midline shift or mass-effect. Ventricles: There is prominence of the ventricular system, cortical sulci, basilar cisterns, compatible with age-related atrophy. Bones/joints: The calvarium is unremarkable. No acute fracture. Soft tissues: Unremarkable. Vasculature: Atherosclerotic disease. Sinuses: Mild to moderate chronic ethmoid and sphenoid sinusitis. Mastoid air cells: Mastoid air cells are well pneumatized. IMPRESSION: 1. Age-related atrophy and small vessel disease of aging, similar to that noted on the previous study. 2. No acute intracranial pathology. 3. If there is concern for etiology such as early acute lacunar infarcts, magnetic resonance imaging of the brain with diffusion-weighted sequences should be performed for follow-up
[2019-12-02 18:53] LABS: ANION GAP 9 mmol/L (5-15); BLOOD UREA NITROGEN 63 mg/dL (7-18); CALCIUM 10.2 MG/DL (8.5-10.1); CARBON DIOXIDE 25 MMOL/L (21-32); CHLORIDE 105 MMOL/L (98-107); CREATININE 1.8 MG/DL (0.55-1.30); POTASSIUM 4.7 MMOL/L (3.5-5.1); SODIUM 139 MMOL/L (136-145)
[2019-12-02 18:58] LABS: ALANINE AMINOTRANSFERASE 10 U/L (12-78); ALBUMIN 2.9 G/DL (3.4-5.0); ALBUMIN/GLOBULIN RATIO 0.6 (1.0-2.7); ALKALINE PHOSPHATASE 79 U/L (46-116); ASPARTATE AMINO TRANSFERASE 25 U/L (15-37); BILIRUBIN,TOTAL 0.2 MG/DL (0.2-1.0); CHOLESTEROL 173 MG/DL (< 200); HDL CHOLESTEROL 45 MG/DL (40-60); TRIGLYCERIDES 95 MG/DL (30-150)
--- NOTE | 2019-12-02 19:08 | NUR ---
HAND-OFF: Report given to ELLI Tse.
[2019-12-02] MEDS ORDERED: Miralax 17gm pkt ORAL PRN (19:15)
[2019-12-02] MEDS ORDERED: Albuterol/Ipratropium 3ml neb HHN PRN (19:15)
[2019-12-02] MEDS ORDERED: Nitroglycerin Subl 0.4mg tab SL PRN (19:15)
[2019-12-02] MEDS ORDERED: Promethazine/Codeine 5ml UD ORAL PRN (19:15)
--- NOTE | 2019-12-02 19:15 | NUR ---
ED Nurse Note: received patient from chioma marsh. patient resting in bed; ao2; spontaneous eye opening; aphasic. hamlin inserted as orderd per ermd. iv access established. blood collected; sent downt to lab. skin intact. slight aggitation noted; notified ermd.
[2019-12-02 19:36] LABS: BASOPHILS % (AUTO) 0.5 % (0.0-2.0); EOSINOPHILS % (AUTO) 0.5 % (0.0-3.0); HEMATOCRIT 37.2 % (42.0-52.0); HEMOGLOBIN 11.7 G/DL (14.2-18.0); LYMPHOCYTES % (AUTO) 6.9 % (20.0-45.0); MEAN CORPUSCULAR VOLUME 87 FL (80-99); MONOCYTES % (AUTO) 6.7 % (1.0-10.0); NEUTROPHILS % (AUTO) 85.3 % (45.0-75.0); PLATELET COUNT 365 K/UL (150-450); RED BLOOD COUNT 4.25 M/UL (4.70-6.10); RED CELL DISTRIBUTION WIDTH 13.7 % (11.6-14.8)
[2019-12-02 19:38] LABS: APPEARANCE,URINE SLIGHTLY CLOUDY; BILIRUBIN, URINE NEGATIVE (NEGATIVE); COLOR,URINE PALE YELLOW; GLUCOSE, URINE (UA) NEGATIVE (NEGATIVE); KETONES,URINE NEGATIVE (NEGATIVE); LEUKOCYTE ESTERASE ,URINE 3+ (NEGATIVE); NITRITE,URINE NEGATIVE (NEGATIVE); PH,URINE 5 (4.5-8.0); PROTEIN,URINE 2+ (NEGATIVE); UROBILINOGEN,URINE NORMAL MG/DL (0.0-1.0)
--- NOTE | 2019-12-02 19:44 | NUR ---
ED Nurse Note: patient down to imaging via gurney with technical manager.
[2019-12-02] MEDS ORDERED: LORazepam Inj 2mg/ml 1ml IV ONE (19:45)
[2019-12-02 20:00] VITALS: BP 118/87
[2019-12-02] MEDS ORDERED: cefTRIAXone 1 GM in NS 55 ML IVPB ONE (20:00)
[2019-12-02 20:11] LABS: CKMB 3.6 NG/ML (0.0-3.6); PHOSPHORUS 2.8 MG/DL (2.5-4.9)
--- NOTE | 2019-12-02 20:30 | NUR ---
ED Nurse Note: patient back from imaging via gurney with professor of radiology. reattached to monitor. patient presents with no acute signs of distress. vitals stable to baseline.
--- NOTE | 2019-12-02 20:45 | NUR ---
TRANSFER TO FLOOR: Patient transferred to sdu 241-2 as ordered, per elizabeth monge. Report given to kiel marsh. patient stable for transfer. transported to unit via gurney with ertsudheer and 2n. belongings and admission packet sent with patient.
--- NOTE | 2019-12-02 20:45 | Diagnostic Imaging Report ---
EXAM: MR Head Without Intravenous Contrast CLINICAL HISTORY: WEAK TECHNIQUE: Magnetic resonance images of the head/brain without intravenous contrast in multiple planes. COMPARISON: Correlated to CT imaging of the head 12/02/2019. FINDINGS: Brain: Evaluation of axial diffusion-weighted sequences reveal a 0.4 cm lacunar infarct medially within the right cerebellar hemisphere best seen on series 9 image 4. Multiple foci lacunar infarcts are noted throughout the medial aspect of the left cerebellar hemisphere anteriorly. 0.4 cm area of lacunar infarction left cerebellar peduncle. A 1.2 cm x 0.6 cm and the smaller 0.3 x 0.4 cm lacunar infarcts within the norberto left of midline. Bilateral acute lacunar infarcts in the basal ganglia. 1.1 x 0.8 cm area of infarction within the medial aspect of the left frontal lobe. 0.3 cm chronic lacunar infarction anterior left centrum semiovale. Several are subcentimeter lacunar infarcts within the high centrum semiovale regions bilaterally, right greater than left. No hemorrhage. Midline shift: Midline anatomy is grossly unremarkable. Ventricles: There is prominence of the ventricular system, cortical sulci, basilar cisterns, compatible with age related atrophy. Bones/joints: Unremarkable. Sinuses: Unremarkable as visualized. No acute sinusitis. Mastoid air cells: Unremarkable as visualized. No mastoid effusion. Orbits: Unremarkable as visualized. IMPRESSION: 1. Multifocal infarcts the largest of which are located within the norberto left of midline as well as the left frontal lobe medially. 2. Multifocal lacunar infarcts are noted scattered bilaterally including the cerebellar hemispheres and the left cerebellar peduncle. 3. Age-related changes. <MYCVCSECTION> Communications: 12/02/19 20:53 Call Doctor Regarding Stroke, called on 12/01 20:53 (- 07:00)
--- NOTE | 2019-12-02 20:53 | NUR ---
NURSE NOTES: Pt transferred to the unit. Belonging checked. potline monitor applied. Pt sleeping in the bed. SR on quality assurance monitor body. ON room air with no sob. VS WNL. IV on L FA 18G, running D5 1/2 NS at 50cc/hr. Skin checked and WCP initiated, picture taken and uploaded, Sacral DTI, Bilateral buttocks DTI, Bilateral Trochanter DTI, Bilateral heels DTI. F/C intact and draining well. Bed in the lowest position. Side rails up x3. Will continue to monitor. Addendum: 12/03/19 at 0320 by Rafael Celis RN multiple scabs on bilateral lower exts. Left 2nd toe- scab noted.
[2019-12-02] MEDS: D5 1/2NS 1,000 ML IV SCH (21:17)
[2019-12-02] MEDS: Heparin 5000 units/ml inj SUBQ SCH (21:19)
[2019-12-02] MEDS: NovoLOG Insulin Flexpen SUBQ SCH (21:44)
[2019-12-03] VITALS: BP 135/66
--- NOTE | 2019-12-03 01:00 | NUR ---
NURSE NOTES: Pt lethargic, arousable to light pain, no verbal response. On room air with no sob. VS WNL. No acute distress noted at this time. Will continue to monitor.
[2019-12-03 04:00] VITALS: BP 123/55
[2019-12-03 05:27] LABS: HEMATOCRIT 31.2 % (42.0-52.0); HEMOGLOBIN 9.9 G/DL (14.2-18.0); MEAN CORPUSCULAR VOLUME 87 FL (80-99); PLATELET COUNT 334 K/UL (150-450); RED CELL DISTRIBUTION WIDTH 13.2 % (11.6-14.8)
[2019-12-03 05:29] LABS: INR 0.9 (0.9-1.1)
[2019-12-03 05:39] LABS: AMMONIA 13 umol/L (11-32)
[2019-12-03 05:40] LABS: ANION GAP 12 mmol/L (5-15); BLOOD UREA NITROGEN 64 mg/dL (7-18); CALCIUM 9.2 MG/DL (8.5-10.1); CARBON DIOXIDE 26 MMOL/L (21-32); CHLORIDE 107 MMOL/L (98-107); POTASSIUM 4.3 MMOL/L (3.5-5.1); SODIUM 145 MMOL/L (136-145)
[2019-12-03 05:52] LABS: ALANINE AMINOTRANSFERASE 12 U/L (12-78); ALBUMIN 2.6 G/DL (3.4-5.0); ALBUMIN/GLOBULIN RATIO 0.6 (1.0-2.7); ALKALINE PHOSPHATASE 68 U/L (46-116); ASPARTATE AMINO TRANSFERASE 16 U/L (15-37); BILIRUBIN,TOTAL 0.2 MG/DL (0.2-1.0); CHOLESTEROL 145 MG/DL (< 200); HDL CHOLESTEROL 41 MG/DL (40-60); TRIGLYCERIDES 77 MG/DL (30-150)
[2019-12-03] MEDS: NovoLOG Insulin Flexpen SUBQ SCH ×4 (06:37→22:15)
--- NOTE | 2019-12-03 07:23 | NUR ---
NURSE HAND-OFF REPORT: Important Events on Shift: Admission. MRI resulted. Patient Status: Lethargic, but responsive to pain stimuli Diet: NPO Pending Orders: n/a Pending Results/Labs:n/a Pending MD notification: n/a Latest Vital Signs: Temperature 97.3 , Pulse 72 , B/P 123 /55 , Respiratory Rate 15 , O2 SAT 100 , Room Air, O2 Flow Rate . Vital Sign Comment: EKG Rhythm: Sinus Rhythm Rhythm change?: N MD Notified?: - MD Response: Latest Zhang Fall Score: 50 Fall Risk: High Risk Safety Measures: Call light Within Reach, Bed Alarm Zone 2, Side Rails Side Rails x3, Bed position Low and Locked. Fall Precautions: Yellow Socks Yellow Gown Door Sign Patient Fall Education Report given to ELLI Posadas.
--- NOTE | 2019-12-03 07:25 | NUR ---
NURSE NOTES: Received report from ELLI Celis. Patient is resting in bed, in stable condition. No s/sx of SOB, breathing is even and unlabored, on room air. Patient noted A&O x 2, withdraws to pain. No pain or discomfort observed at this time. Bed is in lowest position, brakes engaged, bed alarm set to zone 2. Call light is kept within easy reach. Will continue to monitor patient.
[2019-12-03 08:00] VITALS: BP 117/61
[2019-12-03] MEDS: Heparin 5000 units/ml inj SUBQ SCH ×2 (08:03→22:10)
--- NOTE | 2019-12-03 08:38 | NUR ---
RD ASSESSMENT & RECOMMENDATIONS SEE CARE ACTIVITY FOR COMPLETE ASSESSMENT DAILY ESTIMATED NEEDS: Needs based on Underweight, wound 40kg 30-35 kcals/kg 6246-2691 total kcals 1.25-1.5 g protein/kg 50-60 g total protein 25-30ml/kcal mL/kg 8465-6364 total fluid mLs NUTRITION DIAGNOSIS: Increased kcal and pro needs r/t underweight status as evidenced by low BMI, moderate to severe generalized wasting, w/ multiple areas of skin compromise, DTI x4. CURRENT DIET: NPO PO DIET RECOMMENDATIONS: Rec Liberalized Regular diet/ texture per TOP PRINTING PRESS OPERATOR ADDITIONAL RECOMMENDATIONS: 1) W/ poor po intake, add Ensure TID W/ elevated BG rec Glucerna TID 2) Add FRANCISCA BID -> f/up w WC eval 3) TOP PRINTING PRESS OPERATOR eval for texture, need for non oral feeds 4) Calibrated bed scale wts daily .
[2019-12-03] MEDS ORDERED: Aspirin Baby 81mg ORAL SCH (09:00)
[2019-12-03] MEDS ORDERED: D5 1/2NS 1000ml IV ONE (09:59)
--- NOTE | 2019-12-03 10:48 | NUR ---
[facility] BEDSIDE SWALLOW EVALUATION. PATIENT REFERRED TO [facility] BY DR. LAKHANI. DYSPHAGIA RISK FACTORS FOR THIS 89 Y.O. MALE: ACUTE: ALOC x2 days with right side paralysis, CVA, intracranial bleed, seizure, postictal state, major electrolyte abnormality, severe sepsis, Acute dehydration. H/O: subdural hematoma, colon cancer status post treatment, HTN, Syncope and collapse, anemia, DM2, Alzheimer Dementia, CKD, severe protein-calorie malnutrition, hyperlipidemia, vitamin B12 deficiency, muscle wasting, lack of coordination. POLST: Not in chart. RELEVANT MEDS: Albuterol (SOB); Zofran (Nausea); Restoril (insomnia). VITALS ON 2L NASAL CANNULA: HR: 67; RR: 19; SP02 100% PLOF: Pt consumed mechanical soft with thin liquids [facility] at [facility]. Pt seen at bedside appears frail and weak. Pt able to open eye to verbal communication. Pt noted with copious, thick phlegm and debris in BOT and throughout oral cavity. Pt provided oral moisturizer and thorough oral care with Yankauer suction, removing thick phlegm, mildly improved verbal communication s/p oral care. Pt able to nod head yes when asked if Pt gets thickened liquids. 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 Pt given PO trial of nectar thick liquid teaspoons. Oral phase characterized by functional labial seal, poor bolus control resulting in suspected premature posterior spillage and subsequent suspected silent aspiration given laryngeal elevation was not well appreciated upon palpation despite verbal and tactile cues to Pt's larynx to initiate swallow; no swallow initiated. Pt did not cough or attempt to clear trial. Pt was able to eventually initiate a swallow with a 20 second delay, laryngeal elevation incomplete in feel upon palpation. Pt is a high risk for silent aspiration, would benefit from MBSS in future (will monitor Pt's candidacy, not appropriate to participate in MBSS at this time). RECOMMENDATIONS: 1. NPO with nutrition, hydration, and meds via NGT (12 Romansh). 2. Please provide oral care BID 3. Dysphagia therapy 3-5x per week x1 week. 4. Will monitor Pts appropriateness to participate in MBSS. 5. Pt would benefit from Speech, Language, and Cognitive communication evaluation given s/p lacunar infarcts. [facility] made RN Cuauhtemoc aware of results, recommendations, [facility] will f/u tomorrow to re-examine Pt's swallowing safety and function. Thank you for this referral! [facility] [phone]
--- NOTE | 2019-12-03 10:49 | NUR ---
NURSE NOTES: Called Dr. Villanueva and spoke with special education secretary, left message informing of new neurology consult due to altered mental status. Todd acknowledged and informed this nurse that Dr. Villanueva will be made aware.
--- NOTE | 2019-12-03 11:11 | NUR ---
RD ASSESSMENT & RECOMMENDATIONS SEE CARE ACTIVITY FOR COMPLETE ASSESSMENT DAILY ESTIMATED NEEDS: Needs based on Underweight, wasting, wound 40kg 30-35 kcals/kg 8000-5044 total kcals 1.25-2 g protein/kg 50-80 g total protein 25-30ml/kcal mL/kg 6048-5244 total fluid mLs NUTRITION DIAGNOSIS: Increased kcal and pro needs r/t underweight status as evidenced by low BMI, moderate to severe generalized wasting, w/ multiple areas of skin compromise, DTI x4. CURRENT DIET: NPO ENTERAL NUTRITION RECOMMENDATIONS: Glucerna 1.2 goal of 45ml/hr x24 hrs to provide 1080ml, 1296 kcal, 65g pro, 869ml free h2O - Obtain GI access, initiate Glucerna 1.2 @25ml/hr for 6 hrs - Advance as tolerated 10ml/hr q4-6 hrs to goal - Flush per MD/ HOB over 30 degrees ------ ADDITIONAL RECOMMENDATIONS: 1) W/ poor po intake, add Ensure TID -> not appropriate for oral po W/ elevated BG rec Glucerna TID-> not appropriate for oral po 2) Add FRANCISCA BID -> f/up w WC eval 3) SHOE SHINER eval for texture, need for non oral feeds-> S/p SHOE SHINER eval, not appropriate for oral diet, TF recs as above 4) Calibrated bed scale wts daily 5) Monitor lytes w/ TF, replete as needed
--- NOTE | 2019-12-03 11:45 | NUR ---
NURSE NOTES: Dr. Vera at nurse station, inquired if patient okay to transfer to telemetry, patient has been sinus rhythm and sinus rhythm with first degree heart block. Dr. Vera acknowledged and stated okay and Dr. Saleh for consult. Order entered, noted, and carried out. Will continue to monitor patient.
--- NOTE | 2019-12-03 11:58 | Consultation ---
History of Present Illness General Date patient seen: Dec 03, 2019 Chief Complaint: Altered Level of Consciousness Present Illness HPI 89-year-old male with PMHx of DM, HTN, Alzheimer's dementia, subdural hematoma, snf resident presented to ER for evaluation of altered level of consciousness and facial droop for 2 days. Patient looks cachectic and chronically ill. He is admitted to [facility] for further management. Allergies: Coded Allergies: ATENOLOL (Verified Allergy, Unknown, 05/23/16) LOSARTAN (Verified Allergy, Unknown, 05/23/16) SIMVASTATIN (Verified Allergy, Unknown, 05/23/16) Uncoded Allergies: AMLIODIPINE (Allergy, Unknown, 05/23/16) PENICILLIN (Allergy, Unknown, 05/23/16) Medication History Scheduled Aspirin* (Aspirin*), 81 MG ORAL DAILY, (Reported) Atorvastatin Calcium* (Lipitor*), 10 MG ORAL BEDTIME, (Reported) Docusate Sodium* (Colace*), 250 MG ORAL DAILY, (Reported) Escitalopram Oxalate* (Lexapro*), 10 MG ORAL DAILY, (Reported) Ferrous Sulfate* (Ferrous Sulfate*), 325 MG ORAL DAILY, (Reported) Hydralazine Hcl* (Hydralazine Hcl*), 10 MG ORAL EVERY 6 HOURS, (Reported) Latanoprost* (Xalatan*), 1 DROP BOTH EYES BEDTIME, (Reported) Lisinopril (Lisinopril*), 5 MG ORAL DAILY, (Reported) Memantine Hcl* (Namenda*), 5 MG ORAL TWICE A DAY, (Reported) Sennosides (Senna Laxative), 17.2 MG PO DAILY, (Reported) Sitagliptin (Januvia), 50 MG ORAL DAILY Sitagliptin (Januvia), 50 MG ORAL DAILY, (Reported) Vitamin D (Vitamin D3), 1,000 UNITS ORAL DAILY, (Reported) Miscellaneous Medications Calcium Carbonate (Calcium Carbonate), 500 MG PO, (Reported) Insulin Lispro (Humalog), 0 SUBQ, (Reported) Sorbitol Solution (Sorbitol), 2,000 ML IR, (Reported) Patient History Healthcare decision maker Resuscitation status Advanced Directive on File Past Medical/Surgical History Past Medical/Surgical History: (1) Alzheimer's dementia (2) History of hypertension (3) History of diabetes mellitus (4) Colon cancer (5) Subdural hematoma Review of Systems All Other Systems: negative except mentioned in HPI Physical Exam General Appearance: lethargic, cachetic, thin Lines, tubes and drains: peripheral HEENT: normocephalic, anicteric Neck: non-tender, normal alignment, supple Respiratory/Chest: chest wall non-tender, lungs clear, normal breath sounds Breasts: no masses Cardiovascular/Chest: normal peripheral pulses, normal rate Abdomen: normal bowel sounds, non tender Genitourinary/Rectal: normal genital exam Extremities: normal range of motion Neurologic: medical science liaison II-XII grossly normal Last 24 Hour Vital Signs Date Time Temp Pulse Resp B/P (MAP) Pulse Ox O2 Delivery O2 Flow Rate FiO2 12/03/19 08:00 66 12/03/19 08:00 97.2 67 19 117/61 (79) 100 12/03/19 08:00 Room Air 12/03/19 04:00 75 12/03/19 04:00 97.3 72 15 123/55 (77) 100 12/03/19 04:00 Room Air 12/03/19 02:32 83 12/03/19 00:00 97.5 80 15 135/66 (89) 100 12/03/19 00:00 Room Air 12/02/19 22:08 Room Air 12/02/19 21:27 86 12/02/19 20:45 97.9 71 18 121/82 96 Room Air 12/02/19 20:11 71 18 121/82 96 12/02/19 20:00 97.9 68 20 118/87 95 Room Air 12/02/19 19:41 84 18 148/77 96 12/02/19 18:31 97.9 84 18 148/77 94 Room Air 12/02/19 18:31 84 18 Room Air 12/02/19 18:21 97.9 84 18 148/77 (100) 94 Room Air Intake and Output 12/02/19 12/03/19 19:00 07:00 Intake Total 450 ml Output Total 0 ml 200 ml Balance 0 ml 250 ml Intake IV Total 450 ml Output Urine Total 0 ml 200 ml Laboratory Tests Test 12/02/19 18:25 12/02/19 19:00 12/02/19 19:15 12/02/19 21:14 Sodium Level 139 MMOL/L (136-145) Potassium Level 4.7 MMOL/L (3.5-5.1) Chloride Level 105 MMOL/L (98-107) Carbon Dioxide Level 25 MMOL/L (21-32) Anion Gap 9 mmol/L (5-15) Blood Urea Nitrogen 63 mg/dL (7-18) H Creatinine 1.8 MG/DL (0.55-1.30) H Estimat Glomerular Filtration Rate 35.8 mL/min (>60) Glucose Level 169 MG/DL (74-106) H Calcium Level 10.2 MG/DL (8.5-10.1) H Total Bilirubin 0.2 MG/DL (0.2-1.0) Aspartate Amino Transf (AST/SGOT) 25 U/L (15-37) Alanine Aminotransferase (ALT/SGPT) 10 U/L (12-78) L Alkaline Phosphatase 79 U/L (46-116) Total Protein 7.9 G/DL (6.4-8.2) Albumin 2.9 G/DL (3.4-5.0) L Globulin 5.0 g/dL Albumin/Globulin Ratio 0.6 (1.0-2.7) L Triglycerides Level 95 MG/DL (30-150) Cholesterol Level 173 MG/DL (< 200) LDL Cholesterol 110 mg/dL (<100) H HDL Cholesterol 45 MG/DL (40-60) Cholesterol/HDL Ratio 3.8 (3.3-4.4) Urine Color Pale yellow Urine Appearance Slightly cloudy Urine pH 5 (4.5-8.0) Urine Specific [place] 1.010 (1.005-1.035) Urine Protein 2+ (NEGATIVE) H Urine Glucose (UA) Negative (NEGATIVE) Urine Ketones Negative (NEGATIVE) Urine Blood 3+ (NEGATIVE) H Urine Nitrite Negative (NEGATIVE) Urine Bilirubin Negative (NEGATIVE) Urine Urobilinogen Normal MG/DL (0.0-1.0) Urine Leukocyte Esterase 3+ (NEGATIVE) H Urine RBC 2-4 /HPF (0 - 0) H Urine WBC Tntc /HPF (0 - 0) H Urine Squamous Epithelial Cells None /LPF (NONE/OCC) Urine Bacteria Many /HPF (NONE) H White Blood Count 12.0 K/UL (4.8-10.8) H Red Blood Count 4.25 M/UL (4.70-6.10) L Hemoglobin 11.7 G/DL (14.2-18.0) L Hematocrit 37.2 % (42.0-52.0) L Mean Corpuscular Volume 87 FL (80-99) Mean Corpuscular Hemoglobin 27.4 PG (27.0-31.0) Mean Corpuscular Hemoglobin Concent 31.4 G/DL (32.0-36.0) L Red Cell Distribution Width 13.7 % (11.6-14.8) Platelet Count 365 K/UL (150-450) Mean Platelet Volume 5.2 FL (6.5-10.1) L Neutrophils (%) (Auto) 85.3 % (45.0-75.0) H Lymphocytes (%) (Auto) 6.9 % (20.0-45.0) L Monocytes (%) (Auto) 6.7 % (1.0-10.0) Eosinophils (%) (Auto) 0.5 % (0.0-3.0) Basophils (%) (Auto) 0.5 % (0.0-2.0) Prothrombin Time 10.7 SEC (9.30-11.50) Prothromb Time International Ratio 1.0 (0.9-1.1) Activated Partial Thromboplast Time 25 SEC (23-33) Lactic Acid Level 1.90 mmol/L (0.4-2.0) Phosphorus Level 2.8 MG/DL (2.5-4.9) Magnesium Level 2.3 MG/DL (1.8-2.4) Total Creatine Kinase 155 U/L (26-308) Creatine Kinase MB 3.6 NG/ML (0.0-3.6) Creatine Kinase MB Relative Index 2.3 Troponin I 0.216 ng/mL (0.000-0.056) POC Whole Blood Glucose 191 MG/DL (74-106) H Test 12/03/19 03:50 12/03/19 05:37 White Blood Count 17.0 K/UL (4.8-10.8) H Red Blood Count 3.60 M/UL (4.70-6.10) L Hemoglobin 9.9 G/DL (14.2-18.0) L Hematocrit 31.2 % (42.0-52.0) L Mean Corpuscular Volume 87 FL (80-99) Mean Corpuscular Hemoglobin 27.4 PG (27.0-31.0) Mean Corpuscular Hemoglobin Concent 31.6 G/DL (32.0-36.0) L Red Cell Distribution Width 13.2 % (11.6-14.8) Platelet Count 334 K/UL (150-450) Mean Platelet Volume 5.4 FL (6.5-10.1) L Neutrophils (%) (Auto) % (45.0-75.0) Lymphocytes (%) (Auto) % (20.0-45.0) Monocytes (%) (Auto) % (1.0-10.0) Eosinophils (%) (Auto) % (0.0-3.0) Basophils (%) (Auto) % (0.0-2.0) Differential Total Cells Counted 100 Neutrophils % (Manual) 92 % (45-75) H Lymphocytes % (Manual) 3 % (20-45) L Monocytes % (Manual) 5 % (1-10) Eosinophils % (Manual) 0 % (0-3) Basophils % (Manual) 0 % (0-2) Band Neutrophils 0 % (0-8) Platelet Estimate Adequate Platelet Morphology Normal Hypochromasia 2+ Anisocytosis 1+ Prothrombin Time 10.5 SEC (9.30-11.50) Prothromb Time International Ratio 0.9 (0.9-1.1) Activated Partial Thromboplast Time 29 SEC (23-33) Sodium Level 145 MMOL/L (136-145) Potassium Level 4.3 MMOL/L (3.5-5.1) Chloride Level 107 MMOL/L (98-107) Carbon Dioxide Level 26 MMOL/L (21-32) Anion Gap 12 mmol/L (5-15) Blood Urea Nitrogen 64 mg/dL (7-18) H Creatinine 2.0 MG/DL (0.55-1.30) H Estimat Glomerular Filtration Rate 31.7 mL/min (>60) Glucose Level 189 MG/DL (74-106) H Calcium Level 9.2 MG/DL (8.5-10.1) Total Bilirubin 0.2 MG/DL (0.2-1.0) Aspartate Amino Transf (AST/SGOT) 16 U/L (15-37) Alanine Aminotransferase (ALT/SGPT) 12 U/L (12-78) Alkaline Phosphatase 68 U/L (46-116) Ammonia 13 umol/L (11-32) Troponin I 0.181 ng/mL (0.000-0.056) Total Protein 7.0 G/DL (6.4-8.2) Albumin 2.6 G/DL (3.4-5.0) L Globulin 4.4 g/dL Albumin/Globulin Ratio 0.6 (1.0-2.7) L Triglycerides Level 77 MG/DL (30-150) Cholesterol Level 145 MG/DL (< 200) LDL Cholesterol 91 mg/dL (<100) HDL Cholesterol 41 MG/DL (40-60) Cholesterol/HDL Ratio 3.5 (3.3-4.4) Thyroid Stimulating Hormone (TSH) 0.775 uiU/mL (0.358-3.740) POC Whole Blood Glucose 177 MG/DL (74-106) H Microbiology Date/Time Source Procedure Growth Status 12/02/19 18:23 Nasopharynx SARS-CoV-2 RdRp Gene Assay - Final Complete 12/02/19 19:00 Urine,Clean Catch Urine Culture - Preliminary Resulted Height (Feet): 5 Height (Inches): 6.00 Weight (Pounds): 86 Medications Current Medications Medications (Trade) Dose Ordered Sig/James Route PRN Reason Start Time Stop Time Status Last Admin Dose Admin Acetaminophen (Tylenol) 650 mg Q4H PRN ORAL fever 12/02/19 19:15 01/01/20 19:14 Albuterol/ Ipratropium (Albuterol/ Ipratropium) 3 ml Q4H PRN HHN Shortness of Breath 12/02/19 19:15 12/07/19 19:14 Aspirin (ASA) 81 mg DAILY ORAL 12/03/19 09:00 01/17/20 08:59 Clonidine HCl (Catapres Tab) 0.1 mg Q4H PRN ORAL For High Blood Pressure 12/02/19 19:15 03/01/20 19:14 Dextrose (Dextrose 50%) 25 ml Q30M PRN IV Hypoglycemia 12/02/19 19:15 03/01/20 19:14 Dextrose (Dextrose 50%) 50 ml Q30M PRN IV Hypoglycemia 12/02/19 19:15 03/01/20 19:14 Dextrose/Sodium Chloride 1,000 ml @ 50 mls/hr Q20H IV 12/02/19 21:00 01/01/20 20:59 12/02/19 21:17 Escitalopram Oxalate (Lexapro) 10 mg DAILY ORAL 12/03/19 09:00 01/02/20 08:59 Heparin Sodium (Porcine) (Heparin 5000 units/ml) 5,000 units EVERY 12 HOURS SUBQ 12/02/19 21:00 01/16/20 20:59 12/02/19 21:19 Insulin Aspart (NovoLOG) BEFORE MEALS AND HS SUBQ 12/02/19 21:00 03/01/20 20:59 12/03/19 06:37 Nitroglycerin (Ntg) 0.4 mg Q5M X 3 DOSES PRN SL Prn Chest Pain 12/02/19 19:15 01/01/20 19:14 Ondansetron HCl (Zofran) 4 mg Q6H PRN IVP Nausea & Vomiting 12/02/19 19:15 01/01/20 19:14 Polyethylene Glycol (Miralax) 17 gm HSPRN PRN ORAL Constipation 12/02/19 19:15 01/01/20 19:14 Promethazine HCl/ Codeine (Phenergan with Codeine) 5 ml Q4H PRN ORAL For Cough 12/02/19 19:15 01/01/20 19:14 Temazepam (Restoril) 15 mg HSPRN PRN ORAL Insomnia 12/02/19 19:15 12/09/19 19:14 Assessment/Plan Problem List: (1) Altered level of consciousness ICD Codes: R40.4 - Transient alteration of awareness SNOMED: 3840766 (2) Severe protein-calorie malnutrition ICD Codes: E43 - Unspecified severe protein-calorie malnutrition SNOMED: 365391318, 295291985, 685648328 (3) History of diabetes mellitus ICD Codes: Z86.39 - Personal history of other endocrine, nutritional and metabolic disease SNOMED: 677446714 (4) History of hypertension ICD Codes: Z86.79 - Personal history of other diseases of the circulatory system SNOMED: 114229042 (5) Alzheimer's dementia ICD Codes: G30.9 - Alzheimer's disease, unspecified; F02.80 - Dementia in other diseases classified elsewhere without behavioral disturbance SNOMED: 80137678 (6) Unilateral weakness ICD Codes: R53.1 - Weakness SNOMED: 11869466 (7) Subdural hematoma ICD Codes: S06.5X9A - Traumatic subdural hemorrhage with loss of consciousness of unspecified duration, initial encounter SNOMED: 663202229 (8) Colon cancer ICD Codes: C18.9 - Malignant neoplasm of colon, unspecified SNOMED: 616157236 Assessment/Plan: NPO neuro evaluation MRI results reviewed Echo is pending sliding scale IV fluids, check electrolytes dvt prophylaxis Cherelle Vera MD Dec 03, 2019 11:58
[2019-12-03 12:00] VITALS: BP 138/66
--- NOTE | 2019-12-03 12:00 | NUR ---
NURSE NOTES: Dr. Vera at nurse station, made aware that patient failed swallow evaluation per speech therapist and will benefit from NG-tube insertion with tube feeding per registered dietitian. Dr. Vera acknowledged and ordered NG-tube insertion and tube feeding per registered dietitian. Order entered, noted, and carried out. Will continue to monitor patient.
[2019-12-03] MEDS ORDERED: Vancomycin 750mg/NS 275ml IVPB ONE ×2 (13:00)
[2019-12-03 13:10] LABS: CREATINE KINASE 112 U/L (26-308)
--- NOTE | 2019-12-03 13:35 | Consultation ---
History of Present Illness General Date patient seen: Dec 03, 2019 Chief Complaint: Altered Level of Consciousness Present Illness HPI 89 y/o M with hx of Dm2, HTN, HLD, colon CA sp treatment, Alzheimer's dementia, fall w/ resultant SDH, [place] resident ([facility]) presented to ED on 12/01 with 2 days of altered mental status and facial droop Allergies: Coded Allergies: ATENOLOL (Verified Allergy, Unknown, 05/23/16) LOSARTAN (Verified Allergy, Unknown, 05/23/16) SIMVASTATIN (Verified Allergy, Unknown, 05/23/16) Uncoded Allergies: AMLIODIPINE (Allergy, Unknown, 05/23/16) PENICILLIN (Allergy, Unknown, 12/03/19) Tolerated Ceftriaxone on 12/02/19 Medication History Scheduled Aspirin* (Aspirin*), 81 MG ORAL DAILY, (Reported) Atorvastatin Calcium* (Lipitor*), 10 MG ORAL BEDTIME, (Reported) Docusate Sodium* (Colace*), 250 MG ORAL DAILY, (Reported) Escitalopram Oxalate* (Lexapro*), 10 MG ORAL DAILY, (Reported) Ferrous Sulfate* (Ferrous Sulfate*), 325 MG ORAL DAILY, (Reported) Hydralazine Hcl* (Hydralazine Hcl*), 10 MG ORAL EVERY 6 HOURS, (Reported) Latanoprost* (Xalatan*), 1 DROP BOTH EYES BEDTIME, (Reported) Lisinopril (Lisinopril*), 5 MG ORAL DAILY, (Reported) Memantine Hcl* (Namenda*), 5 MG ORAL TWICE A DAY, (Reported) Sennosides (Senna Laxative), 17.2 MG PO DAILY, (Reported) Sitagliptin (Januvia), 50 MG ORAL DAILY Sitagliptin (Januvia), 50 MG ORAL DAILY, (Reported) Vitamin D (Vitamin D3), 1,000 UNITS ORAL DAILY, (Reported) Miscellaneous Medications Calcium Carbonate (Calcium Carbonate), 500 MG PO, (Reported) Insulin Lispro (Humalog), 0 SUBQ, (Reported) Sorbitol Solution (Sorbitol), 2,000 ML IR, (Reported) Patient History Healthcare decision maker Resuscitation status Advanced Directive on File Patient History Narrative Pmhx: as above Shx: reviewed Fhx: non contributory Review of Systems All Other Systems: negative except mentioned in HPI Physical Exam Physical Exam Narrative General Appearance: lethargic, cachetic, thin HEENT: normocephalic, anicteric Neck: non-tender, normal alignment, supple Respiratory/Chest: chest wall non-tender, lungs clear, normal breath sounds Cardiovascular/Chest: normal peripheral pulses, normal rate Abdomen: normal bowel sounds, non tender Extremities: normal range of motion Last 24 Hour Vital Signs Date Time Temp Pulse Resp B/P (MAP) Pulse Ox O2 Delivery O2 Flow Rate FiO2 12/03/19 08:00 66 12/03/19 08:00 97.2 67 19 117/61 (79) 100 12/03/19 08:00 Room Air 12/03/19 04:00 75 12/03/19 04:00 97.3 72 15 123/55 (77) 100 12/03/19 04:00 Room Air 12/03/19 02:32 83 12/03/19 00:00 97.5 80 15 135/66 (89) 100 12/03/19 00:00 Room Air 12/02/19 22:08 Room Air 12/02/19 21:27 86 12/02/19 20:45 97.9 71 18 121/82 96 Room Air 12/02/19 20:11 71 18 121/82 96 12/02/19 20:00 97.9 68 20 118/87 95 Room Air 12/02/19 19:41 84 18 148/77 96 12/02/19 18:31 97.9 84 18 148/77 94 Room Air 12/02/19 18:31 84 18 Room Air 12/02/19 18:21 97.9 84 18 148/77 (100) 94 Room Air Intake and Output 12/02/19 12/03/19 19:00 07:00 Intake Total 450 ml Output Total 0 ml 200 ml Balance 0 ml 250 ml Intake IV Total 450 ml Output Urine Total 0 ml 200 ml Laboratory Tests Test 12/02/19 18:25 12/02/19 19:00 12/02/19 19:15 12/02/19 21:14 Sodium Level 139 MMOL/L (136-145) Potassium Level 4.7 MMOL/L (3.5-5.1) Chloride Level 105 MMOL/L (98-107) Carbon Dioxide Level 25 MMOL/L (21-32) Anion Gap 9 mmol/L (5-15) Blood Urea Nitrogen 63 mg/dL (7-18) H Creatinine 1.8 MG/DL (0.55-1.30) H Estimat Glomerular Filtration Rate 35.8 mL/min (>60) Glucose Level 169 MG/DL (74-106) H Calcium Level 10.2 MG/DL (8.5-10.1) H Total Bilirubin 0.2 MG/DL (0.2-1.0) Aspartate Amino Transf (AST/SGOT) 25 U/L (15-37) Alanine Aminotransferase (ALT/SGPT) 10 U/L (12-78) L Alkaline Phosphatase 79 U/L (46-116) Total Protein 7.9 G/DL (6.4-8.2) Albumin 2.9 G/DL (3.4-5.0) L Globulin 5.0 g/dL Albumin/Globulin Ratio 0.6 (1.0-2.7) L Triglycerides Level 95 MG/DL (30-150) Cholesterol Level 173 MG/DL (< 200) LDL Cholesterol 110 mg/dL (<100) H HDL Cholesterol 45 MG/DL (40-60) Cholesterol/HDL Ratio 3.8 (3.3-4.4) Urine Color Pale yellow Urine Appearance Slightly cloudy Urine pH 5 (4.5-8.0) Urine Specific Markle 1.010 (1.005-1.035) Urine Protein 2+ (NEGATIVE) H Urine Glucose (UA) Negative (NEGATIVE) Urine Ketones Negative (NEGATIVE) Urine Blood 3+ (NEGATIVE) H Urine Nitrite Negative (NEGATIVE) Urine Bilirubin Negative (NEGATIVE) Urine Urobilinogen Normal MG/DL (0.0-1.0) Urine Leukocyte Esterase 3+ (NEGATIVE) H Urine RBC 2-4 /HPF (0 - 0) H Urine WBC Tntc /HPF (0 - 0) H Urine Squamous Epithelial Cells None /LPF (NONE/OCC) Urine Bacteria Many /HPF (NONE) H White Blood Count 12.0 K/UL (4.8-10.8) H Red Blood Count 4.25 M/UL (4.70-6.10) L Hemoglobin 11.7 G/DL (14.2-18.0) L Hematocrit 37.2 % (42.0-52.0) L Mean Corpuscular Volume 87 FL (80-99) Mean Corpuscular Hemoglobin 27.4 PG (27.0-31.0) Mean Corpuscular Hemoglobin Concent 31.4 G/DL (32.0-36.0) L Red Cell Distribution Width 13.7 % (11.6-14.8) Platelet Count 365 K/UL (150-450) Mean Platelet Volume 5.2 FL (6.5-10.1) L Neutrophils (%) (Auto) 85.3 % (45.0-75.0) H Lymphocytes (%) (Auto) 6.9 % (20.0-45.0) L Monocytes (%) (Auto) 6.7 % (1.0-10.0) Eosinophils (%) (Auto) 0.5 % (0.0-3.0) Basophils (%) (Auto) 0.5 % (0.0-2.0) Prothrombin Time 10.7 SEC (9.30-11.50) Prothromb Time International Ratio 1.0 (0.9-1.1) Activated Partial Thromboplast Time 25 SEC (23-33) Lactic Acid Level 1.90 mmol/L (0.4-2.0) Phosphorus Level 2.8 MG/DL (2.5-4.9) Magnesium Level 2.3 MG/DL (1.8-2.4) Total Creatine Kinase 155 U/L (26-308) Creatine Kinase MB 3.6 NG/ML (0.0-3.6) Creatine Kinase MB Relative Index 2.3 Troponin I 0.216 ng/mL (0.000-0.056) POC Whole Blood Glucose 191 MG/DL (74-106) H Test 12/03/19 03:50 12/03/19 05:37 12/03/19 11:51 White Blood Count 17.0 K/UL (4.8-10.8) H Red Blood Count 3.60 M/UL (4.70-6.10) L Hemoglobin 9.9 G/DL (14.2-18.0) L Hematocrit 31.2 % (42.0-52.0) L Mean Corpuscular Volume 87 FL (80-99) Mean Corpuscular Hemoglobin 27.4 PG (27.0-31.0) Mean Corpuscular Hemoglobin Concent 31.6 G/DL (32.0-36.0) L Red Cell Distribution Width 13.2 % (11.6-14.8) Platelet Count 334 K/UL (150-450) Mean Platelet Volume 5.4 FL (6.5-10.1) L Neutrophils (%) (Auto) % (45.0-75.0) Lymphocytes (%) (Auto) % (20.0-45.0) Monocytes (%) (Auto) % (1.0-10.0) Eosinophils (%) (Auto) % (0.0-3.0) Basophils (%) (Auto) % (0.0-2.0) Differential Total Cells Counted 100 Neutrophils % (Manual) 92 % (45-75) H Lymphocytes % (Manual) 3 % (20-45) L Monocytes % (Manual) 5 % (1-10) Eosinophils % (Manual) 0 % (0-3) Basophils % (Manual) 0 % (0-2) Band Neutrophils 0 % (0-8) Platelet Estimate Adequate Platelet Morphology Normal Hypochromasia 2+ Anisocytosis 1+ Prothrombin Time 10.5 SEC (9.30-11.50) Prothromb Time International Ratio 0.9 (0.9-1.1) Activated Partial Thromboplast Time 29 SEC (23-33) Sodium Level 145 MMOL/L (136-145) Potassium Level 4.3 MMOL/L (3.5-5.1) Chloride Level 107 MMOL/L (98-107) Carbon Dioxide Level 26 MMOL/L (21-32) Anion Gap 12 mmol/L (5-15) Blood Urea Nitrogen 64 mg/dL (7-18) H Creatinine 2.0 MG/DL (0.55-1.30) H Estimat Glomerular Filtration Rate 31.7 mL/min (>60) Glucose Level 189 MG/DL (74-106) H Uric Acid 8.3 MG/DL (2.6-7.2) H Calcium Level 9.2 MG/DL (8.5-10.1) Total Bilirubin 0.2 MG/DL (0.2-1.0) Aspartate Amino Transf (AST/SGOT) 16 U/L (15-37) Alanine Aminotransferase (ALT/SGPT) 12 U/L (12-78) Alkaline Phosphatase 68 U/L (46-116) Ammonia 13 umol/L (11-32) Total Creatine Kinase 112 U/L (26-308) Troponin I 0.181 ng/mL (0.000-0.056) Total Protein 7.0 G/DL (6.4-8.2) Albumin 2.6 G/DL (3.4-5.0) L Globulin 4.4 g/dL Albumin/Globulin Ratio 0.6 (1.0-2.7) L Triglycerides Level 77 MG/DL (30-150) Cholesterol Level 145 MG/DL (< 200) LDL Cholesterol 91 mg/dL (<100) HDL Cholesterol 41 MG/DL (40-60) Cholesterol/HDL Ratio 3.5 (3.3-4.4) Thyroid Stimulating Hormone (TSH) 0.775 uiU/mL (0.358-3.740) POC Whole Blood Glucose 177 MG/DL (74-106) H 133 MG/DL (74-106) H Microbiology Date/Time Source Procedure Growth Status 12/02/19 18:23 Nasopharynx SARS-CoV-2 RdRp Gene Assay - Final Complete 12/02/19 19:00 Urine,Clean Catch Urine Culture - Preliminary Resulted Height (Feet): 5 Height (Inches): 6.00 Weight (Pounds): 86 Medications Current Medications Medications (Trade) Dose Ordered Sig/James Route PRN Reason Start Time Stop Time Status Last Admin Dose Admin Acetaminophen (Tylenol) 650 mg Q4H PRN ORAL fever 12/02/19 19:15 01/01/20 19:14 Albuterol/ Ipratropium (Albuterol/ Ipratropium) 3 ml Q4H PRN HHN Shortness of Breath 12/02/19 19:15 12/07/19 19:14 Aspirin (ASA) 81 mg DAILY ORAL 12/03/19 09:00 01/17/20 08:59 Aztreonam 0.5 gm/ Dextrose 55 ml @ 110 mls/hr Q8HR IVPB 12/03/19 22:00 12/10/19 21:59 Aztreonam 1 gm/ Dextrose 55 ml @ 110 mls/hr ONCE ONCE IVPB 12/03/19 14:00 12/03/19 14:29 Clonidine HCl (Catapres Tab) 0.1 mg Q4H PRN ORAL For High Blood Pressure 12/02/19 19:15 03/01/20 19:14 Dextrose (Dextrose 50%) 25 ml Q30M PRN IV Hypoglycemia 12/02/19 19:15 03/01/20 19:14 Dextrose (Dextrose 50%) 50 ml Q30M PRN IV Hypoglycemia 12/02/19 19:15 03/01/20 19:14 Dextrose/Sodium Chloride 1,000 ml @ 50 mls/hr Q20H IV 12/02/19 21:00 01/01/20 20:59 12/02/19 21:17 Escitalopram Oxalate (Lexapro) 10 mg DAILY ORAL 12/03/19 09:00 01/02/20 08:59 Heparin Sodium (Porcine) (Heparin 5000 units/ml) 5,000 units EVERY 12 HOURS SUBQ 12/02/19 21:00 01/16/20 20:59 12/02/19 21:19 Insulin Aspart (NovoLOG) BEFORE MEALS AND HS SUBQ 12/02/19 21:00 03/01/20 20:59 12/03/19 06:37 Nitroglycerin (Ntg) 0.4 mg Q5M X 3 DOSES PRN SL Prn Chest Pain 12/02/19 19:15 01/01/20 19:14 Ondansetron HCl (Zofran) 4 mg Q6H PRN IVP Nausea & Vomiting 12/02/19 19:15 01/01/20 19:14 Polyethylene Glycol (Miralax) 17 gm HSPRN PRN ORAL Constipation 12/02/19 19:15 01/01/20 19:14 Promethazine HCl/ Codeine (Phenergan with Codeine) 5 ml Q4H PRN ORAL For Cough 12/02/19 19:15 01/01/20 19:14 Temazepam (Restoril) 15 mg HSPRN PRN ORAL Insomnia 12/02/19 19:15 12/09/19 19:14 Vancomycin HCl (Vanco pharmacy to dose) 1 ea DAILY PRN MISC Per rx protocol 12/03/19 12:00 01/02/20 11:59 Vancomycin HCl 750 mg/Sodium Chloride 275 ml @ 183.333 mls/hr ONCE ONCE IVPB 12/03/19 13:00 12/03/19 14:29 Assessment/Plan Assessment/Plan: Abx: Ceftriaxone x1 12/01 IV Vancomycin 12/02- Aztreonam 12/02- Assessment: COVID19 neg x1 (12/01 rapid COVID PCR neg) UTI -u/a wbc tnct, nit neg, leuk +3; ucx p Afebrile Leukocytosis; worsening -CXR p -Bcx p Acute encephalopathy/facial droop- Multifocal infarcts -12/01 Brain MRI wo: Multifocal infarcts the largest of which are located within the norberto left of midline as well as the left frontal lobe medially. Multifocal lacunar infarcts are noted scattered bilaterally including the cerebellar hemispheres and the left cerebellar peduncle. Age-related changes. CT head wo: Age-related atrophy and small vessel disease of aging, similar to that noted on the previous study. No acute intracranial pathology. If there is concern for etiology such as early acute lacunar infarcts, magnetic resonance imaging of the brain with diffusion-weighted sequences should be performed for follow-up FRANKY on CKD, worsening Dm2 HTN HLD colon CA sp treatment Alzheimer's dementia fall w/ resultant SDH [facility] resident ([facility]) Plan: -Continue empiric IV Vancomycin #1 -Switch Aztreonam to Meropenem -f/u cx -Monitor CBC/CMP, temperatures -aspiration precautions -f/u CXR Thank you for this consultation. Will continue to follow along with you. Discussed with ELLI. Velma Lopez M.D. Dec 03, 2019 13:34
--- NOTE | 2019-12-03 13:48 | NUR ---
CASE MANAGEMENT: REVIEW 89 YEAR OLD MALE BIBA FROM [facility] CC: AMS . FACIAL DROOPING . LEFT SIDE WEAKNESS x2 DAYS Hx COLON CA SI: ALOC . LEFT SIDE WEAKNESS T 97.9 HR 84 RR 18 BP 148/77 SAT 94% ROOM AIR WBC 12.0 H/H 11.7/37.2 BUN 64 CR 2.0 TROP I 0.181 UA: PROTEIN 2+ BLOOD 3+ LEUKOCYTE ESTERASE 3+ BACTERIA MANY URINE CX PENDING IS: ATIVAN IV X1 CEFTRIAXONE IV X1 D5 1/2 NS IVF BOLUS X1 PATIENT ADMITTED TO STEP DOWN UNIT 12/02/2019 DCP: PATIENT IS FROM [facility]
[2019-12-03] MEDS ORDERED: Aztreonam Inj 1 GM in D5W 55 ML IVPB ONE (14:00)
--- NOTE | 2019-12-03 14:30 | Consultation ---
Consult Note Consult Note I am asked to evaluate the patient at the request of Dr. Spencer for renal failure Patient non-historian. Patient seen in room 241. Lethargic nonverbal. Patient examined Data reviewed ER note: HPI: 89-year-old male presents from [facility] for evaluation of altered level of consciousness. Symptoms present 2 days. Unknown time of onset but report per natural resource officer states facial droop and paralysis with changes in mentation for at least 2 days. They states he was previously verbal but now not communicating verbally. He has a history of diabetes, hypertension, hypercholesterolemia, Alzheimer's dementia and prior subdural hematoma from a fall. Patient appears to understand. Can communicate but is hard to understand him. Seems to be able to acknowledge yes and no. No spontaneous movement of the right side. Patient is full code according to EMS. PMH: Diabetes, hypertension, Alzheimer's dementia, prior subdural, colon cancer status post treatment PSH: Unable to obtain from patient Allergies: Amlodipine, atenolol, losartan, penicillin and simvastatin listed in chart Social Hx: Unable to obtain from patient COVID-19 Screening Contact w/high risk pt: No Experienced COVID-19 symptoms?: No Past Medical History: As above PHYSICAL EXAMINATION: VITAL SIGNS: On admission is significant for temperature 97.9, pulse of 84, respirations 18, and blood pressure 148/77, repeat one is 121/82. GENERAL: The patient is cachectic, malnutrition, altered, cannot follow commands. HEENT: Pupils equal and reactive to light, anicteric. NECK: Supple. No JVD. LUNGS: Good air entry. No wheezing, rhonchi. Decreased air in the bases. HEART: S1, S2. Distant heart sounds. No murmur or gallop. ABDOMEN: Soft, nondistended, nontender. No rebound tenderness. No fluid shift. EXTREMITIES: No cyanosis, clubbing, or edema. Muscle atrophy to bilateral lower extremities noted. NEUROLOGIC: Cranial nerves II to XII are limited secondary to the patient's status. However, the patient is moving the eyes. Noted the right side is weaker than left side. RECTAL/GENITOURINARY: Refused and deferred PSYCHIATRIC: Mood and affect unable to obtain secondary to the patient's status. LABORATORY DATA: On admission from the emergency department, WBC of 12, hemoglobin 11, hematocrit 37, platelets are 365. Sodium 139, potassium 4.7, chloride 105, bicarb 25, BUN 63, creatinine 1.8. GFR is 35 and glucose is 169. Calcium is 10.2, total bili of 0.2, AST of 25, ALT of 10, alk phos 79, total protein is 7.9, albumin is 2.9, triglycerides 95, cholesterol is 175. PT of 10, INR 1.0, PTT 25. UA has +2 protein, +3 leukocyte esterase, 2-4 rbc'sl, and many bacteria. The patient had a COVID-19 test that is negative. . Assessment/Plan Acute on chronic renal failure. Previous admission patient was discharged on serum creatinine of 1.6. Severe malnutrition. Encephalopathy toxic metabolic. Evidence of UTI. Multi-infarct brain disease. Diabetes mellitus Hypertension History of colon cancer Alzheimer's skilled nursing resident Full code Slow hydrate Monitor renal parameters urine output Antibiotics Avoid nephrotoxic's Per consultants Improve nutritional status as possible Patient had previous admissions and ER visits here at [facility]. I spent an additional 36 minutes on review of medical records including prior hospital records,consult notes, progress notes, procedures ,imaging labs, hemodynamics, and other clinical documentation. Over 35 min Vin Otero MD Dec 03, 2019 14:30
[2019-12-03] MEDS ORDERED: Meropenem 500 MG in NS 55 ML IVPB SCH (15:00)
--- NOTE | 2019-12-03 15:01 | NUR ---
P.T note: late entry 0900 P.T evaluation completed. Pt is alert, oriented to self but not to time and place. Pt follows simple one step commands and answers to simple Y/N questions. Pt presented RUE/LE hemiplegia, R hip/knee flexion contractures and RUE rigidity. Pt denied until RLE are being passively moved. Pt presented gross fair volitional movement on LUE and fair- LLE movement however not not sufficient to initiate ADL/functional activities resulting to complete dependence in areas of ADL/functional mobilities. Pt is already baseline function and not a candidate for skilled P.T services. Recommend return to prior living arrangement. Thank you for this referral. [place] P.T services.
[2019-12-03 16:00] VITALS: BP 130/67
--- NOTE | 2019-12-03 16:00 | NUR ---
NURSE NOTES: Attempted NG-tube insertion x 4, unsuccessful. Made Dr. Jody joseph MD acknowledged and ordered Dr. Johnson consult for NG-tube insertion. Order entered, noted, and carried out. Will continue to monitor patient.
--- NOTE | 2019-12-03 16:43 | Diagnostic Imaging Report ---
Indication: Shortness of breath Technique: One view of the chest Comparison: 11/03/2019 Findings: Left hemidiaphragm is obscured. The right lung pleural space are clear. Left upper lungs clear. The heart size is normal. There are mitral annular calcifications again noted. Impression: Obscured left hemidiaphragm, could indicate pleural fluid and/or parenchymal consolidation/atelectasis. Correlate with clinical findings
--- NOTE | 2019-12-03 16:46 | Diagnostic Imaging Report ---
Indication: Facial droop and paralysis, acute infarcts demonstrated on recent MRI Technique: Grayscale and duplex images of the extracranial carotid circulation were obtained Comparison: None Findings: Bilaterally, grayscale and duplex images demonstrate atherosclerotic plaquing resulting in less than 50% diameter narrowing. Normal Doppler flow velocities and waveforms. Patent bilateral vertebral arteries, antegrade flow. Impression: Less than 50% stenosis bilaterally All stenosis was measured based on the NASCET criteria. Velocity criteria are extrapolated from diameter data as defined by the Society of radiologists in ultrasound consensus conference. Radiology 2003:229; 340-346
--- NOTE | 2019-12-03 16:54 | NUR ---
NURSE NOTES:WOUND CARE NOTES:Pt presented on admission with multiple Pressure injuries. Reabsorbing DTPI L Elbow. Base of Pressure Injury is dry and black centrally with maroon borders(L)2cm x (W)1.5cm. DTPI Sacrum (L)9.5cm x (W)11.5cm. Base of Pressure Injury is indurated purpuric with surrounding maroon borders. Pt verbalized tenderness when affected site minimally palpated. DTPI R Ischium(L)8cm x (W)9.5cm. Base of pressure injury is purpuric with maroon borders. Tender when minimally palpated. DTPI L trochanter(L)4cm x (W)3.2cm. Base of injury is purpuric with surrounding Maroon borders. Tender when minimally palpated. DTPI L Ischium (L)7cm x (W)5.4cm.Base of Injury is black with marginal erythema . Tender when minimally palpated. R Heel is boggy with non-blanchable erythema (L)3cm x (W)3.5cm. L Heel is boggy with non-Blanchable erythema(L)5cm x (W)3.5cm. L 1st metatarsal erythematous,tip is fluctuant. Pt complained tender when minimally palpated. No elevation in skin temp noted. Dry scab noted to dorsal L 2nd metatarsal. Tx.Plan:Apply Moisture Barrier Paste to Sacrum and bilat ischial tuberosities. Cover each site with Optifoam drsgs. Change every 3 days and prn. Apply Cavilon Skin Barrier to R and L trochanter. Cover each site with Optifoam drsgs. Change every 7 days and prn Apply Cavilon Skin Barrier to L and R elbows. Cover each site with Optifoam drsgs. Change every 7 days and prn. Apply Cavilon Skin Barrier to both heels and Malleoli. Cover each site with Optifoam drsgs. Change every 7 days and prn. Apply Cavilon Skin Barrier to bony prominences and cover with Optifoam drsgs as needed. Reposition at least every 2hours or as tolerated. Off-load heels with pillow. APM/KARTHIK Mattress overlay.
[2019-12-03] MEDS: D5 1/2NS 1,000 ML IV SCH ×2 (17:10→18:48)
--- NOTE | 2019-12-03 17:17 | Diagnostic Imaging Report ---
Indication: And no renal function tests Technique: Grayscale and duplex images of the kidneys, retroperitoneum, and bladder were obtained. Comparison: 11/04/2019 Findings: Exam technically limited due to patient being contracted and patient body habitus. Right kidney measures 7.4 cm in length. Left kidney measures 6 x 1 cm in length. Both kidneys demonstrate normal echogenicity. No hydronephrosis. 2.4 cm upper pole cyst is again demonstrated in the left kidney. Normal inferior vena cava. Bladder is empty, contains a Vela catheter. Impression: Small kidneys bilaterally. No evidence of hydronephrosis Empty bladder with a Vela catheter Incidental finding left renal cyst.
--- NOTE | 2019-12-03 17:28 | History & Physical ---
History and Physical History & Physicial Darren Spencer MD Dec 03, 2019 17:28
--- NOTE | 2019-12-03 18:21 | Consultation ---
History of Present Illness General Date patient seen: Dec 03, 2019 Chief Complaint: Altered Level of Consciousness Present Illness HPI 89-year-old male with history of Diabetes, hypertension, Alzheimer's dementia, prior subdural, colon cancer status post treatment who presents from [facility] for evaluation of altered level of consciousness. Symptoms present 2 days. Unknown time of onset but report per harness worker states facial droop and paralysis with changes in mentation for at least 2 days. They states he was previously verbal but now not communicating verbally. He has a history of diabetes, hypertension, hypercholesterolemia, Alzheimer's dementia and prior subdural hematoma from a fall. Patient appears to understand. Can communicate but is hard to understand him. Seems to be able to acknowledge yes and no. No spontaneous movement of the right side. Patient is full code according to EMS. on admission noted to have severe low bmi, malnutrition, and decubitus requiring care. surgery called to evaluate Allergies: Coded Allergies: ATENOLOL (Verified Allergy, Unknown, 05/23/16) LOSARTAN (Verified Allergy, Unknown, 05/23/16) SIMVASTATIN (Verified Allergy, Unknown, 05/23/16) Uncoded Allergies: AMLIODIPINE (Allergy, Unknown, 05/23/16) PENICILLIN (Allergy, Unknown, 12/03/19) Tolerated Ceftriaxone on 12/02/19 Medication History Scheduled Aspirin* (Aspirin*), 81 MG ORAL DAILY, (Reported) Atorvastatin Calcium* (Lipitor*), 10 MG ORAL BEDTIME, (Reported) Docusate Sodium* (Colace*), 250 MG ORAL DAILY, (Reported) Escitalopram Oxalate* (Lexapro*), 10 MG ORAL DAILY, (Reported) Ferrous Sulfate* (Ferrous Sulfate*), 325 MG ORAL DAILY, (Reported) Hydralazine Hcl* (Hydralazine Hcl*), 10 MG ORAL EVERY 6 HOURS, (Reported) Latanoprost* (Xalatan*), 1 DROP BOTH EYES BEDTIME, (Reported) Lisinopril (Lisinopril*), 5 MG ORAL DAILY, (Reported) Memantine Hcl* (Namenda*), 5 MG ORAL TWICE A DAY, (Reported) Sennosides (Senna Laxative), 17.2 MG PO DAILY, (Reported) Sitagliptin (Januvia), 50 MG ORAL DAILY Sitagliptin (Januvia), 50 MG ORAL DAILY, (Reported) Vitamin D (Vitamin D3), 1,000 UNITS ORAL DAILY, (Reported) Miscellaneous Medications Calcium Carbonate (Calcium Carbonate), 500 MG PO, (Reported) Insulin Lispro (Humalog), 0 SUBQ, (Reported) Sorbitol Solution (Sorbitol), 2,000 ML IR, (Reported) Patient History Limited by: age, medical condition History Provided By: Medical Record, PMD Healthcare decision maker Resuscitation status Advanced Directive on File Past Medical/Surgical History Past Medical/Surgical History: (1) History of diabetes mellitus (2) History of hypertension (3) Alzheimer's dementia (4) UTI (urinary tract infection) (5) Unilateral weakness (6) Acute dehydration (7) Altered level of consciousness (8) Subdural hematoma (9) Colon cancer (10) Severe protein-calorie malnutrition Review of Systems All Other Systems: negative except mentioned in HPI Physical Exam General Appearance: no apparent distress, alert Lines, tubes and drains: peripheral HEENT: normocephalic, atraumatic, anicteric, mucous membranes moist Neck: non-tender, normal alignment Respiratory/Chest: no respiratory distress, no accessory muscle use, decreased breath sounds Cardiovascular/Chest: normal peripheral pulses, normal rate, regular rhythm Abdomen: soft, no organomegaly, no mass, other Extremities: normal inspection, no calf tenderness, normal capillary refill, non-pitting Skin Exam: warm/dry Last 24 Hour Vital Signs Date Time Temp Pulse Resp B/P (MAP) Pulse Ox O2 Delivery O2 Flow Rate FiO2 12/03/19 16:00 Room Air 12/03/19 16:00 97.0 83 19 130/67 (88) 100 12/03/19 16:00 82 12/03/19 12:00 Room Air 12/03/19 12:00 96.8 82 19 138/66 (90) 100 12/03/19 12:00 79 12/03/19 08:00 66 12/03/19 08:00 97.2 67 19 117/61 (79) 100 12/03/19 08:00 Room Air 12/03/19 04:00 75 12/03/19 04:00 97.3 72 15 123/55 (77) 100 12/03/19 04:00 Room Air 12/03/19 02:32 83 12/03/19 00:00 97.5 80 15 135/66 (89) 100 12/03/19 00:00 Room Air 12/02/19 22:08 Room Air 12/02/19 21:27 86 12/02/19 20:45 97.9 71 18 121/82 96 Room Air 12/02/19 20:11 71 18 121/82 96 12/02/19 20:00 97.9 68 20 118/87 95 Room Air 12/02/19 19:41 84 18 148/77 96 12/02/19 18:31 97.9 84 18 148/77 94 Room Air 12/02/19 18:31 84 18 Room Air 12/02/19 18:21 97.9 84 18 148/77 (100) 94 Room Air Intake and Output 12/02/19 12/03/19 19:00 07:00 Intake Total 450 ml Output Total 0 ml 200 ml Balance 0 ml 250 ml Intake IV Total 450 ml Output Urine Total 0 ml 200 ml Laboratory Tests Test 12/02/19 18:25 12/02/19 19:00 12/02/19 19:15 12/02/19 21:14 Sodium Level 139 MMOL/L (136-145) Potassium Level 4.7 MMOL/L (3.5-5.1) Chloride Level 105 MMOL/L (98-107) Carbon Dioxide Level 25 MMOL/L (21-32) Anion Gap 9 mmol/L (5-15) Blood Urea Nitrogen 63 mg/dL (7-18) H Creatinine 1.8 MG/DL (0.55-1.30) H Estimat Glomerular Filtration Rate 35.8 mL/min (>60) Glucose Level 169 MG/DL (74-106) H Calcium Level 10.2 MG/DL (8.5-10.1) H Total Bilirubin 0.2 MG/DL (0.2-1.0) Aspartate Amino Transf (AST/SGOT) 25 U/L (15-37) Alanine Aminotransferase (ALT/SGPT) 10 U/L (12-78) L Alkaline Phosphatase 79 U/L (46-116) Total Protein 7.9 G/DL (6.4-8.2) Albumin 2.9 G/DL (3.4-5.0) L Globulin 5.0 g/dL Albumin/Globulin Ratio 0.6 (1.0-2.7) L Triglycerides Level 95 MG/DL (30-150) Cholesterol Level 173 MG/DL (< 200) LDL Cholesterol 110 mg/dL (<100) H HDL Cholesterol 45 MG/DL (40-60) Cholesterol/HDL Ratio 3.8 (3.3-4.4) Urine Color Pale yellow Urine Appearance Slightly cloudy Urine pH 5 (4.5-8.0) Urine Specific [place] 1.010 (1.005-1.035) Urine Protein 2+ (NEGATIVE) H Urine Glucose (UA) Negative (NEGATIVE) Urine Ketones Negative (NEGATIVE) Urine Blood 3+ (NEGATIVE) H Urine Nitrite Negative (NEGATIVE) Urine Bilirubin Negative (NEGATIVE) Urine Urobilinogen Normal MG/DL (0.0-1.0) Urine Leukocyte Esterase 3+ (NEGATIVE) H Urine RBC 2-4 /HPF (0 - 0) H Urine WBC Tntc /HPF (0 - 0) H Urine Squamous Epithelial Cells None /LPF (NONE/OCC) Urine Bacteria Many /HPF (NONE) H White Blood Count 12.0 K/UL (4.8-10.8) H Red Blood Count 4.25 M/UL (4.70-6.10) L Hemoglobin 11.7 G/DL (14.2-18.0) L Hematocrit 37.2 % (42.0-52.0) L Mean Corpuscular Volume 87 FL (80-99) Mean Corpuscular Hemoglobin 27.4 PG (27.0-31.0) Mean Corpuscular Hemoglobin Concent 31.4 G/DL (32.0-36.0) L Red Cell Distribution Width 13.7 % (11.6-14.8) Platelet Count 365 K/UL (150-450) Mean Platelet Volume 5.2 FL (6.5-10.1) L Neutrophils (%) (Auto) 85.3 % (45.0-75.0) H Lymphocytes (%) (Auto) 6.9 % (20.0-45.0) L Monocytes (%) (Auto) 6.7 % (1.0-10.0) Eosinophils (%) (Auto) 0.5 % (0.0-3.0) Basophils (%) (Auto) 0.5 % (0.0-2.0) Prothrombin Time 10.7 SEC (9.30-11.50) Prothromb Time International Ratio 1.0 (0.9-1.1) Activated Partial Thromboplast Time 25 SEC (23-33) Lactic Acid Level 1.90 mmol/L (0.4-2.0) Phosphorus Level 2.8 MG/DL (2.5-4.9) Magnesium Level 2.3 MG/DL (1.8-2.4) Total Creatine Kinase 155 U/L (26-308) Creatine Kinase MB 3.6 NG/ML (0.0-3.6) Creatine Kinase MB Relative Index 2.3 Troponin I 0.216 ng/mL (0.000-0.056) POC Whole Blood Glucose 191 MG/DL (74-106) H Test 12/03/19 03:50 12/03/19 05:37 12/03/19 11:51 12/03/19 15:00 White Blood Count 17.0 K/UL (4.8-10.8) H Red Blood Count 3.60 M/UL (4.70-6.10) L Hemoglobin 9.9 G/DL (14.2-18.0) L Hematocrit 31.2 % (42.0-52.0) L Mean Corpuscular Volume 87 FL (80-99) Mean Corpuscular Hemoglobin 27.4 PG (27.0-31.0) Mean Corpuscular Hemoglobin Concent 31.6 G/DL (32.0-36.0) L Red Cell Distribution Width 13.2 % (11.6-14.8) Platelet Count 334 K/UL (150-450) Mean Platelet Volume 5.4 FL (6.5-10.1) L Neutrophils (%) (Auto) % (45.0-75.0) Lymphocytes (%) (Auto) % (20.0-45.0) Monocytes (%) (Auto) % (1.0-10.0) Eosinophils (%) (Auto) % (0.0-3.0) Basophils (%) (Auto) % (0.0-2.0) Differential Total Cells Counted 100 Neutrophils % (Manual) 92 % (45-75) H Lymphocytes % (Manual) 3 % (20-45) L Monocytes % (Manual) 5 % (1-10) Eosinophils % (Manual) 0 % (0-3) Basophils % (Manual) 0 % (0-2) Band Neutrophils 0 % (0-8) Platelet Estimate Adequate Platelet Morphology Normal Hypochromasia 2+ Anisocytosis 1+ Prothrombin Time 10.5 SEC (9.30-11.50) Prothromb Time International Ratio 0.9 (0.9-1.1) Activated Partial Thromboplast Time 29 SEC (23-33) Sodium Level 145 MMOL/L (136-145) Potassium Level 4.3 MMOL/L (3.5-5.1) Chloride Level 107 MMOL/L (98-107) Carbon Dioxide Level 26 MMOL/L (21-32) Anion Gap 12 mmol/L (5-15) Blood Urea Nitrogen 64 mg/dL (7-18) H Creatinine 2.0 MG/DL (0.55-1.30) H Estimat Glomerular Filtration Rate 31.7 mL/min (>60) Glucose Level 189 MG/DL (74-106) H Uric Acid 8.3 MG/DL (2.6-7.2) H Calcium Level 9.2 MG/DL (8.5-10.1) Total Bilirubin 0.2 MG/DL (0.2-1.0) Aspartate Amino Transf (AST/SGOT) 16 U/L (15-37) Alanine Aminotransferase (ALT/SGPT) 12 U/L (12-78) Alkaline Phosphatase 68 U/L (46-116) Ammonia 13 umol/L (11-32) Total Creatine Kinase 112 U/L (26-308) Troponin I 0.181 ng/mL (0.000-0.056) Total Protein 7.0 G/DL (6.4-8.2) Albumin 2.6 G/DL (3.4-5.0) L Globulin 4.4 g/dL Albumin/Globulin Ratio 0.6 (1.0-2.7) L Triglycerides Level 77 MG/DL (30-150) Cholesterol Level 145 MG/DL (< 200) LDL Cholesterol 91 mg/dL (<100) HDL Cholesterol 41 MG/DL (40-60) Cholesterol/HDL Ratio 3.5 (3.3-4.4) Thyroid Stimulating Hormone (TSH) 0.775 uiU/mL (0.358-3.740) POC Whole Blood Glucose 177 MG/DL (74-106) H 133 MG/DL (74-106) H Urine Random Sodium < 20 mmol/L (20-110) L Test 12/03/19 15:56 POC Whole Blood Glucose 129 MG/DL (74-106) H Microbiology Date/Time Source Procedure Growth Status 12/02/19 18:23 Nasopharynx SARS-CoV-2 RdRp Gene Assay - Final Complete 12/02/19 19:00 Urine,Clean Catch Urine Culture - Preliminary Resulted Height (Feet): 5 Height (Inches): 6.00 Weight (Pounds): 86 Medications Current Medications Medications (Trade) Dose Ordered Sig/James Route PRN Reason Start Time Stop Time Status Last Admin Dose Admin Acetaminophen (Tylenol) 650 mg Q4H PRN ORAL fever 12/02/19 19:15 01/01/20 19:14 Albuterol/ Ipratropium (Albuterol/ Ipratropium) 3 ml Q4H PRN HHN Shortness of Breath 12/02/19 19:15 12/07/19 19:14 Aspirin (ASA) 81 mg DAILY ORAL 12/03/19 09:00 01/17/20 08:59 Clonidine HCl (Catapres Tab) 0.1 mg Q4H PRN ORAL For High Blood Pressure 12/02/19 19:15 03/01/20 19:14 Dextrose (Dextrose 50%) 25 ml Q30M PRN IV Hypoglycemia 12/02/19 19:15 03/01/20 19:14 Dextrose (Dextrose 50%) 50 ml Q30M PRN IV Hypoglycemia 12/02/19 19:15 03/01/20 19:14 Dextrose/Sodium Chloride 1,000 ml @ 50 mls/hr Q20H IV 12/02/19 21:00 01/01/20 20:59 12/03/19 17:10 Escitalopram Oxalate (Lexapro) 10 mg DAILY ORAL 12/03/19 09:00 01/02/20 08:59 Heparin Sodium (Porcine) (Heparin 5000 units/ml) 5,000 units EVERY 12 HOURS SUBQ 12/02/19 21:00 01/16/20 20:59 12/02/19 21:19 Insulin Aspart (NovoLOG) BEFORE MEALS AND HS SUBQ 12/02/19 21:00 03/01/20 20:59 12/03/19 06:37 Meropenem 500 mg/ Sodium Chloride 55 ml @ 110 mls/hr Q12HR@0300,1500 IVPB 12/03/19 15:00 12/08/19 14:59 12/03/19 15:47 Nitroglycerin (Ntg) 0.4 mg Q5M X 3 DOSES PRN SL Prn Chest Pain 12/02/19 19:15 01/01/20 19:14 Ondansetron HCl (Zofran) 4 mg Q6H PRN IVP Nausea & Vomiting 12/02/19 19:15 01/01/20 19:14 Polyethylene Glycol (Miralax) 17 gm HSPRN PRN ORAL Constipation 12/02/19 19:15 01/01/20 19:14 Promethazine HCl/ Codeine (Phenergan with Codeine) 5 ml Q4H PRN ORAL For Cough 12/02/19 19:15 01/01/20 19:14 Temazepam (Restoril) 15 mg HSPRN PRN ORAL Insomnia 12/02/19 19:15 12/09/19 19:14 Vancomycin HCl (Vanco pharmacy to dose) 1 ea DAILY PRN MISC Per rx protocol 12/03/19 12:00 01/02/20 11:59 Assessment/Plan Problem List: (1) History of diabetes mellitus ICD Codes: Z86.39 - Personal history of other endocrine, nutritional and metabolic disease SNOMED: 948066776 (2) History of hypertension ICD Codes: Z86.79 - Personal history of other diseases of the circulatory system SNOMED: 708689698 (3) Alzheimer's dementia ICD Codes: G30.9 - Alzheimer's disease, unspecified; F02.80 - Dementia in other diseases classified elsewhere without behavioral disturbance SNOMED: 10953572 (4) UTI (urinary tract infection) ICD Codes: N39.0 - Urinary tract infection, site not specified SNOMED: 64991164 (5) Unilateral weakness ICD Codes: R53.1 - Weakness SNOMED: 67483722 (6) Acute dehydration ICD Codes: E86.0 - Dehydration SNOMED: 5980429, 27440627 (7) Altered level of consciousness ICD Codes: R40.4 - Transient alteration of awareness SNOMED: 2424888 (8) Subdural hematoma ICD Codes: S06.5X9A - Traumatic subdural hemorrhage with loss of consciousness of unspecified duration, initial encounter SNOMED: 434312715 (9) Colon cancer ICD Codes: C18.9 - Malignant neoplasm of colon, unspecified SNOMED: 959318829 (10) Severe protein-calorie malnutrition Assessment & Plan: DAILY ESTIMATED NEEDS: Needs based on Underweight, wasting, wound 40kg 30-35 kcals/kg 2265-5974 total kcals 1.25-2 g protein/kg 50-80 g total protein 25-30ml/kcal mL/kg 3324-8911 total fluid mLs NUTRITION DIAGNOSIS: Increased kcal and pro needs r/t underweight status as evidenced by low BMI, moderate to severe generalized wasting, w/ multiple areas of skin compromise, DTI x4. CURRENT DIET: NPO ENTERAL NUTRITION RECOMMENDATIONS: Glucerna 1.2 goal of 45ml/hr x24 hrs to provide 1080ml, 1296 kcal, 65g pro, 869ml free h2O - Obtain GI access, initiate Glucerna 1.2 @25ml/hr for 6 hrs - Advance as tolerated 10ml/hr q4-6 hrs to goal - Flush per MD/ HOB over 30 degrees ------ ADDITIONAL RECOMMENDATIONS: 1) W/ poor po intake, add Ensure TID -> not appropriate for oral po W/ elevated BG rec Glucerna TID-> not appropriate for oral po 2) Add FRANCISCA BID -> f/up w WC eval 3) FLANGING ROLL OPERATOR eval for texture, need for non oral feeds-> S/p FLANGING ROLL OPERATOR eval, not appropriate for oral diet, TF recs as above 4) Calibrated bed scale wts daily 5) Monitor lytes w/ TF, replete as needed ACUTE: ALOC x2 days with right side paralysis, CVA, intracranial bleed, seizure , postictal state, major electrolyte abnormality, severe sepsis, Acute dehydration. H/O: subdural hematoma, colon cancer status post treatment, HTN, Syncope and collapse, anemia, DM2, Alzheimer Dementia, CKD, severe protein-calorie malnutrition, hyperlipidemia, vitamin B12 deficiency, muscle wasting, lack of coordination. POLST: Not in chart. RELEVANT MEDS: Albuterol (SOB); Zofran (Nausea); Restoril (insomnia). VITALS ON 2L NASAL CANNULA: HR: 67; RR: 19; SP02 100% PLOF: Pt consumed mechanical soft with thin liquids [facility]. Pt seen at bedside appears frail and weak. Pt able to open eye to verbal communication. Pt noted with copious, thick phlegm and debris in BOT and throughout oral cavity. Pt provided oral moisturizer and thorough oral care with Yankauer suction, removing thick phlegm, mildly improved verbal communication s/p oral care. Pt able to nod head yes when asked if Pt gets thickened liquids. 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 Pt given PO trial of nectar thick liquid teaspoons. Oral phase characterized by functional labial seal, poor bolus control resulting in suspected premature posterior spillage and subsequent suspected silent aspiration given laryngeal elevation was not well appreciated upon palpation despite verbal and tactile cues to Pt's larynx to initiate swallow; no swallow initiated. Pt did not cough or attempt to clear trial. Pt was able to eventually initiate a swallow with a 20 second delay, laryngeal elevation incomplete in feel upon palpation. Pt is a high risk for silent aspiration, would benefit from MBSS in future ( will monitor Pt's candidacy, not appropriate to participate in MBSS at this time ). RECOMMENDATIONS: 1. NPO with nutrition, hydration, and meds via NGT (12 Togolese). 2. Please provide oral care BID 3. Dysphagia therapy 3-5x per week x1 week. 4. Will monitor Pts appropriateness to participate in MBSS. 5. Pt would benefit from Speech, Language, and Cognitive communication evaluation given s/p lacunar infarcts. ICD Codes: E43 - Unspecified severe protein-calorie malnutrition SNOMED: 054143859, 900413113, 366961616 (11) Decubitus skin ulcer Assessment & Plan: Pt presented on admission with multiple Pressure injuries. Reabsorbing DTPI L Elbow. Base of Pressure Injury is dry and black centrally with maroon borders(L)2cm x (W)1.5cm. DTPI Sacrum (L)9.5cm x (W)11.5cm. Base of Pressure Injury is indurated purpuric with surrounding maroon borders. Pt verbalized tenderness when affected site minimally palpated. DTPI R Ischium(L)8cm x (W)9.5cm. Base of pressure injury is purpuric with maroon borders. Tender when minimally palpated. DTPI L trochanter(L)4cm x (W)3.2cm. Base of injury is purpuric with surrounding Maroon borders. Tender when minimally palpated. DTPI L Ischium (L)7cm x (W)5.4cm.Base of Injury is black with marginal erythema . Tender when minimally palpated. R Heel is boggy with non-blanchable erythema (L)3cm x (W)3.5cm. L Heel is boggy with non-Blanchable erythema(L)5cm x (W)3.5cm. L 1st metatarsal erythematous,tip is fluctuant. Pt complained tender when minimally palpated. No elevation in skin temp noted. Dry scab noted to dorsal L 2nd metatarsal. Tx.Plan: Apply Moisture Barrier Paste to Sacrum and bilat ischial tuberosities. Cover each site with Optifoam drsgs. Change every 3 days and prn. Apply Cavilon Skin Barrier to R and L trochanter. Cover each site with Optifoam drsgs. Change every 7 days and prn Apply Cavilon Skin Barrier to L and R elbows. Cover each site with Optifoam drsgs. Change every 7 days and prn. Apply Cavilon Skin Barrier to both heels and Malleoli. Cover each site with Optifoam drsgs. Change every 7 days and prn. Apply Cavilon Skin Barrier to bony prominences and cover with Optifoam drsgs as needed. Reposition at least every 2hours or as tolerated. Off-load heels with pillow. APM/KARTHIK Mattress overlay. ICD Codes: L89.90 - Pressure ulcer of unspecified site, unspecified stage SNOMED: 000060167 Patel Merrill Dec 03, 2019 18:21
--- NOTE | 2019-12-03 18:40 | NUR ---
TRANSFER TO FLOOR: Patient transferred to Telemetry CI853-9, per Dr. Vera. Report given to ELLI Cedillo. Patient has no belongings and medications given to ELLI Cedillo. Family informed of transfer.
[2019-12-03] MEDS ORDERED: Nitroglycerin Subl 0.4mg tab SL PRN (18:45)
[2019-12-03] MEDS ORDERED: Miralax 17gm pkt ORAL PRN (18:49)
[2019-12-03] MEDS ORDERED: Promethazine/Codeine 5ml UD ORAL PRN (19:15)
[2019-12-03] MEDS ORDERED: Albuterol/Ipratropium 3ml neb HHN PRN (19:15)
--- NOTE | 2019-12-03 19:44 | NUR ---
NURSE HAND-OFF REPORT: Important Events on Shift: Pt was transferred to tele from SDU. WCP uploaded. Asif Posadas RN, follow Dietitian's recommendation for tube feeding when NGT insertion is successful. Patient Status: stable Diet: NPO Pending Orders: NGT insertion by Dr Johnson, labs tomorrow Pending Results/Labs: Pending MD notification: Latest Vital Signs: Temperature 97.0 , Pulse 82 , B/P 130 /67 , Respiratory Rate 19 , O2 SAT 100 , Room Air, O2 Flow Rate . Vital Sign Comment: EKG Rhythm: Sinus Rhythm Rhythm change?: N MD Notified?: - MD Response: Latest Zhang Fall Score: 50 Fall Risk: High Risk Safety Measures: Call light Within Reach, Bed Alarm Zone 2, Side Rails Side Rails x3, Bed position Low and Locked. Fall Precautions: Yellow Socks Yellow Gown Report given to ELLI [place].
[2019-12-03 20:00] VITALS: BP 174/70
--- NOTE | 2019-12-03 20:18 | NUR ---
NURSE NOTES: Received patient from ELLI Rodriguez. Asleep, but arousable. AOx1-2. IV site intact and flushed. On NPO tonight. Was endorsed that Dr. Johnson would insert patient's NGT tomorrow. NGT Fr12 at bedside. Bed in lowest position, brakes engaged and bed alarm on. Call light placed within reach. Will continue to monitor.
--- NOTE | 2019-12-03 21:06 | Cardiology Progress Note ---
Assessment/Plan Assessment/Plan [id number] infact ekg sinus tele sinsu need neuro evla ? empiric anticoagualtion ?? Objective Last 24 Hour Vital Signs Date Time Temp Pulse Resp B/P (MAP) Pulse Ox O2 Delivery O2 Flow Rate FiO2 12/03/19 20:00 95.0 69 19 174/70 (104) 100 12/03/19 16:00 Room Air 12/03/19 16:00 97.0 83 19 130/67 (88) 100 12/03/19 16:00 82 12/03/19 12:00 Room Air 12/03/19 12:00 96.8 82 19 138/66 (90) 100 12/03/19 12:00 79 12/03/19 08:00 66 12/03/19 08:00 97.2 67 19 117/61 (79) 100 12/03/19 08:00 Room Air 12/03/19 04:00 75 12/03/19 04:00 97.3 72 15 123/55 (77) 100 12/03/19 04:00 Room Air 12/03/19 02:32 83 12/03/19 00:00 97.5 80 15 135/66 (89) 100 12/03/19 00:00 Room Air 12/02/19 22:08 Room Air 12/02/19 21:27 86 Intake and Output 12/02/19 12/03/19 19:00 07:00 Intake Total 450 ml Output Total 0 ml 200 ml Balance 0 ml 250 ml Intake IV Total 450 ml Output Urine Total 0 ml 200 ml Laboratory Tests Test 12/02/19 21:14 12/03/19 03:50 12/03/19 05:37 12/03/19 11:51 POC Whole Blood Glucose 191 MG/DL (74-106) H 177 MG/DL (74-106) H 133 MG/DL (74-106) H White Blood Count 17.0 K/UL (4.8-10.8) H Red Blood Count 3.60 M/UL (4.70-6.10) L Hemoglobin 9.9 G/DL (14.2-18.0) L Hematocrit 31.2 % (42.0-52.0) L Mean Corpuscular Volume 87 FL (80-99) Mean Corpuscular Hemoglobin 27.4 PG (27.0-31.0) Mean Corpuscular Hemoglobin Concent 31.6 G/DL (32.0-36.0) L Red Cell Distribution Width 13.2 % (11.6-14.8) Platelet Count 334 K/UL (150-450) Mean Platelet Volume 5.4 FL (6.5-10.1) L Neutrophils (%) (Auto) % (45.0-75.0) Lymphocytes (%) (Auto) % (20.0-45.0) Monocytes (%) (Auto) % (1.0-10.0) Eosinophils (%) (Auto) % (0.0-3.0) Basophils (%) (Auto) % (0.0-2.0) Differential Total Cells Counted 100 Neutrophils % (Manual) 92 % (45-75) H Lymphocytes % (Manual) 3 % (20-45) L Monocytes % (Manual) 5 % (1-10) Eosinophils % (Manual) 0 % (0-3) Basophils % (Manual) 0 % (0-2) Band Neutrophils 0 % (0-8) Platelet Estimate Adequate Platelet Morphology Normal Hypochromasia 2+ Anisocytosis 1+ Prothrombin Time 10.5 SEC (9.30-11.50) Prothromb Time International Ratio 0.9 (0.9-1.1) Activated Partial Thromboplast Time 29 SEC (23-33) Sodium Level 145 MMOL/L (136-145) Potassium Level 4.3 MMOL/L (3.5-5.1) Chloride Level 107 MMOL/L (98-107) Carbon Dioxide Level 26 MMOL/L (21-32) Anion Gap 12 mmol/L (5-15) Blood Urea Nitrogen 64 mg/dL (7-18) H Creatinine 2.0 MG/DL (0.55-1.30) H Estimat Glomerular Filtration Rate 31.7 mL/min (>60) Glucose Level 189 MG/DL (74-106) H Uric Acid 8.3 MG/DL (2.6-7.2) H Calcium Level 9.2 MG/DL (8.5-10.1) Total Bilirubin 0.2 MG/DL (0.2-1.0) Aspartate Amino Transf (AST/SGOT) 16 U/L (15-37) Alanine Aminotransferase (ALT/SGPT) 12 U/L (12-78) Alkaline Phosphatase 68 U/L (46-116) Ammonia 13 umol/L (11-32) Total Creatine Kinase 112 U/L (26-308) Troponin I 0.181 ng/mL (0.000-0.056) Total Protein 7.0 G/DL (6.4-8.2) Albumin 2.6 G/DL (3.4-5.0) L Globulin 4.4 g/dL Albumin/Globulin Ratio 0.6 (1.0-2.7) L Triglycerides Level 77 MG/DL (30-150) Cholesterol Level 145 MG/DL (< 200) LDL Cholesterol 91 mg/dL (<100) HDL Cholesterol 41 MG/DL (40-60) Cholesterol/HDL Ratio 3.5 (3.3-4.4) Thyroid Stimulating Hormone (TSH) 0.775 uiU/mL (0.358-3.740) Test 12/03/19 15:00 12/03/19 15:56 Urine Random Sodium < 20 mmol/L (20-110) L POC Whole Blood Glucose 129 MG/DL (74-106) H Microbiology Date/Time Source Procedure Growth Status 12/02/19 18:23 Nasopharynx SARS-CoV-2 RdRp Gene Assay - Final Complete 12/02/19 19:00 Urine,Clean Catch Urine Culture - Preliminary Resulted Beka Saleh MD Dec 03, 2019 21:06
[2019-12-03] MEDS ORDERED: Aztreonam 0.5gm/D5W 55ml IVPB SCH ×2 (22:00)
[2019-12-04] VITALS: BP 121/59
--- NOTE | 2019-12-04 00:14 | Consultation ---
DATE OF CONSULTATION: 12/03/2019 CARDIOLOGY CONSULTATION CONSULTING PHYSICIAN: Beka Saleh MD. REFERRING PHYSICIAN: Darren Spencer MD. REASON FOR REFERRAL: Altered mentation, history of multiple medical problems. HISTORY OF PRESENT ILLNESS: This is an elderly gentleman who is known to me for several years. The patient is a resident of convalescent facility. Recently, he has had some several issues and has been hospitalized here and at [facility] and according to his son over the past 2 weeks, there is basically less and less degree of interaction and just basically staring and really not communicating as much as he has done. Finally was brought to the emergency room here at [facility] and has been admitted to the hospital. According to his son, he has not been any verbally complaining of anything, just sits, and really a blank stare, but he does communicate intermittently by head gestures. The patient on my arrival, denied any chest pain or shortness of breath or dizziness, although I am not sure how much of what he is telling me is actually true. PAST MEDICAL HISTORY: Positive for history of multiple medical problems including history of rectal cancer that was removed in 2014 at [facility], diabetes, hypertension, anemia, prostatic hypertrophy, diabetic retinopathy, chronic kidney disease, vitamin B12 deficiency, recently diagnosed history of urinary incontinence, iron deficiency, and most recently he has had a syncopal episode, hypotension, status post a fall with subdural hematoma, and right bundle-branch conduction defect as well. SOCIAL HISTORY: He quit smoking in , quit alcohol . No drugs. He resides in a convalescent facility. 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 MEDICATION: List provided elsewhere. REVIEW OF SYSTEMS: GASTROINTESTINAL: He denies any nausea, vomiting, or diarrhea. PULMONARY: No coughing or wheezing. CONSTITUTIONAL: There is no reports of any fevers or chills. PHYSICAL EXAMINATION: GENERAL: Shows to be elderly male, in no respiratory distress. He looks significantly better than my prior evaluation of him. NECK: Supple. LUNGS: Anteriorly are clear. CARDIAC: Regular rate and rhythm. ABDOMEN: Soft, nontender. Positive bowel sounds. EXTREMITIES: There is no edema. NEUROLOGICAL: He is arousable and responsive. LABORATORY VALUES: He did have a CT scan of his head that was performed that showed age-related atrophy and small vessel changes similar to the one noted on prior occasion. No acute intracranial pathology. He has subsequently had an MRI of his brain that showed multifocal infarct, the largest of these look in the norberto and midbrain as well as the left . Multifocal lacunar infarctions noted scattered bilaterally including the cerebellar hemisphere and left cerebellar peduncle. He did have a carotid duplex study that shows less than 50% stenosis bilaterally. He did have a renal ultrasound that showed small kidneys bilaterally. No hydronephrosis. Empty bladder. He did have a chest x-ray performed that showed obscured left hemidiaphragm, could be indicated a pleural effusion and/or parenchymal consolidation. His laboratories, his blood sugar anywhere between 129 to 177. Uric acid is 6.3. Troponin of 0.181. His sodium 145, potassium 4.3, chloride 107, bicarb 26, BUN of 64, creatinine 2.2, and glucose of 189. His troponin at the time of admission of 0.216. Albumin of 2.0. TSH of 0.775. LDL of 91, HDL of 41, total cholesterol 145. Coags, INR 0.9 and PTT of 22. Urinalysis shows 3+ leukocyte esterase, too numerous to count wbc's, and urine sodium less than 20. Urine preliminary culture is not ready yet. His COVID SARS test was negative at the time of his admission. His EKG shows sinus rhythm. Telemetry shows sinus rhythm. ASSESSMENT AND PLAN: 1. 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 2. Altered mental status, probably secondary to above. 3. Renal insufficiency acute on chronic. 4. Urinary tract infection. 5. History of subdural hematoma post fall. 6. B12 deficiency. 7. Diabetes mellitus. 8. Anemia. 9. Iron deficiency. This patient was seen in cardiac consultation findings of multiple strokes concerning for embolic either arterial and/or cardiac. Telemetry shows sinus rhythm. EKG shows sinus rhythm. An echocardiogram has been performed that may need to be evaluated further. Ejection fraction was felt to be 60% to 65%, moderate aortic regurgitation, moderate mitral regurgitation. Peak mitral gradient of 7 and mean of 3. There are no significant other abnormalities. He will need to be seen by a neurologist. Question is whether he should be empirically treated with anticoagulation or whether it is safe for him to be treated with anticoagulation. I will continue him on telemetry until neurological evaluation is assessed and risk of anticoagulation can be ascertained. Beka Saleh M.D. DR: BAY JOB#: [id number] CC:
--- NOTE | 2019-12-04 00:14 | History and Physical Report ---
DATE OF ADMISSION: 12/02/2019 CHIEF COMPLAINT: Altered mental status. HISTORY OF PRESENT ILLNESS: This is an 89-year-old gentleman with the past medical history significant for diabetes type 2, hypertension, dyslipidemia, colon cancer, status post treatment, Alzheimer dementia, history of fall with subdural hematoma, who presented from a nursing facility, [facility], after the patient was noted to have altered mental status with associated facial droop. Shortly after initial evaluation in the emergency department, the patient was admitted to the hospital with altered mental status, most likely secondary to toxic metabolic encephalopathy as a result of the acute CVA. MRI of the brain was done, noted the patient had multiple infarctions, the largest one of which is located within the norberto of the left midline as well as the left frontal lobe medially, and history of multifocal lacunar infarctions is noted scattered bilaterally including cerebral hemisphere and the left cerebral pontine. Age-related changes were identified. PAST MEDICAL HISTORY AND PAST SURGICAL HISTORY: As above, history of diabetes type 2, hypertension, dyslipidemia, and history of colon cancer, status post treatment, Alzheimer dementia, fall with a subdural hematoma recently. MEDICATIONS: At home are aspirin, atorvastatin, Colace, Lexapro, iron sulfate, hydralazine, Xalatan, lisinopril, Namenda, senna, Januvia, and vitamin D. ALLERGIES: Atenolol, losartan, simvastatin, penicillin, amlodipine. SOCIAL HISTORY: The patient is a residential resident. No smoking, alcohol, or drugs at this time. FAMILY HISTORY: Noncontributory. REVIEW OF SYSTEMS: Very limited secondary to the patient's status. The patient is altered, cannot follow commands. However, the patient denies any headache. No nausea or vomiting was reported. No fever, chills. PHYSICAL EXAMINATION: VITAL SIGNS: On admission is significant for temperature 97.9, pulse of 84, respirations 18, and blood pressure 148/77, repeat one is 121/82. GENERAL: The patient is cachectic, malnutrition, altered, cannot follow commands. HEENT: Pupils equal and reactive to light, anicteric. NECK: Supple. No JVD. LUNGS: Good air entry. No wheezing, rhonchi. Decreased air in the bases. HEART: S1, S2. Distant heart sounds. No murmur or gallop. ABDOMEN: Soft, nondistended, nontender. No rebound tenderness. No fluid shift. EXTREMITIES: No cyanosis, clubbing, or edema. Muscle atrophy to bilateral lower extremities noted. NEUROLOGIC: Cranial nerves II to XII are limited secondary to the patient's status. However, the patient is moving the eyes. Noted the right side is weaker than left side. RECTAL/GENITOURINARY: Refused and deferred PSYCHIATRIC: Mood and affect unable to obtain secondary to the patient's status. LABORATORY DATA: On admission from the emergency department, WBC of 12, hemoglobin 11, hematocrit 37, platelets are 365. Sodium 139, potassium 4.7, chloride 105, bicarb 25, BUN 63, creatinine 1.8. GFR is 35 and glucose is 169. Calcium is 10.2, total bili of 0.2, AST of 25, ALT of 10, alk phos 79, total protein is 7.9, albumin is 2.9, triglycerides 95, cholesterol is 175. PT of 10, INR 1.0, PTT 25. UA has +2 protein, +3 leukocyte esterase, 2-4 rbc's, tainted WBC, squamous cell, and many bacteria. The patient had a COVID-19 test that is negative. ASSESSMENT: 1. Acute encephalopathy, most likely secondary to toxic metabolic encephalopathy as well as acute CVA. 2. Acute urinary tract infection. 3. Diabetes type 2. 4. Acute kidney injury, on chronic renal insufficiency. 5. Multifocal infarction, confirmed on MRI. 6. Hypertension. 7. Dyslipidemia. 8. Colon cancer, status post resection. 9. Alzheimer dementia. 10. History of fall with subdural hematoma, resolved. 11. The patient has severe protein-calorie malnutrition. PLAN: Admit the patient to [facility]E. We will follow up with laboratory and culture. Start the patient on broad-spectrum antibiotics with vancomycin and meropenem and follow up with the ID consultation, Dr. Lopez, pulmonary consultation, Dr. Vera, cardiology consultation with Dr. Beka Saleh, and nephrology consultation with Dr. Vin Otero. We will follow up with the laboratory cultures. Code status at this time full code. DVT prophylaxis is with heparin subcu. Darren Tj, M.D. DR: TIMO JOB#: [id number] CC:
[2019-12-04] MEDS: Meropenem 500 MG in NS 55 ML IVPB SCH ×2 (02:56→15:00)
[2019-12-04 04:00] VITALS: BP 126/60
[2019-12-04] MEDS: NovoLOG Insulin Flexpen SUBQ SCH ×4 (05:46→21:00)
[2019-12-04 07:15] LABS: % IRON SATURATION 11 % (15-50); IRON 18 ug/dL (50-175); TOTAL IRON BINDING CAPACITY 162 ug/dL (250-450)
[2019-12-04 07:17] LABS: ALANINE AMINOTRANSFERASE 10 U/L (12-78); ALBUMIN 2.4 G/DL (3.4-5.0); ALBUMIN/GLOBULIN RATIO 0.6 (1.0-2.7); ALKALINE PHOSPHATASE 75 U/L (46-116); ANION GAP 9 mmol/L (5-15); ASPARTATE AMINO TRANSFERASE 21 U/L (15-37); BILIRUBIN,TOTAL 0.2 MG/DL (0.2-1.0); BLOOD UREA NITROGEN 51 mg/dL (7-18); CALCIUM 9.7 MG/DL (8.5-10.1); CARBON DIOXIDE 27 MMOL/L (21-32); CHLORIDE 109 MMOL/L (98-107); CREATININE 1.7 MG/DL (0.55-1.30); PHOSPHORUS 3.3 MG/DL (2.5-4.9); POTASSIUM 3.9 MMOL/L (3.5-5.1); SODIUM 145 MMOL/L (136-145)
[2019-12-04 07:23] LABS: CREATINE KINASE 102 U/L (26-308); GAMMA GLUTAMYL TRANSPEPTIDASE < 3 U/L (5-85)
--- NOTE | 2019-12-04 07:30 | NUR ---
NURSE NOTES: Received pt from Miroslava RN, Pt is sleeping, pt is in RA, no SOB or acute respiratory distress noted. pt is on continues heart monitoring. pt is NPO, pt has intact iv access LFA 18g is running well. Dr Saleh is aware about troponin 0.131, no new order to RN. pt has Vela cath in place is working well. All needs attended, bed is locked and is in the lowest position, call light within easy reach. will continue to monitor.
--- NOTE | 2019-12-04 07:35 | NUR ---
NURSE HAND-OFF REPORT: Important Events on Shift:[Endorsed patient's pending NGT insertion today. And Nutrition recommendations.] Patient Status: [FC] Diet: [NPO ] Pending Orders: [NGT insertion] Pending Results/Labs:[Blood draws] Pending MD notification:[] Latest Vital Signs: Temperature 97.9 , Pulse 68 , B/P 126 /60 , Respiratory Rate 18 , O2 SAT 97 , Room Air, O2 Flow Rate . Vital Sign Comment: [] EKG Rhythm: Sinus Rhythm Rhythm change?: Y MD Notified?: N - MD Response: Latest Zhang Fall Score: 50 Fall Risk: High Risk Safety Measures: Call light Within Reach, Bed Alarm Zone 2, Side Rails Side Rails x3, Bed position Low and Locked. Fall Precautions: Yellow Socks Yellow Gown Report given to [ELLI Sanchez].
[2019-12-04 08:00] VITALS: BP 103/59
[2019-12-04 08:10] LABS: BASOPHILS % (AUTO) 0.6 % (0.0-2.0); EOSINOPHILS % (AUTO) 1.9 % (0.0-3.0); HEMATOCRIT 31.6 % (42.0-52.0); HEMOGLOBIN 9.8 G/DL (14.2-18.0); LYMPHOCYTES % (AUTO) 8.8 % (20.0-45.0); MEAN CORPUSCULAR VOLUME 89 FL (80-99); MONOCYTES % (AUTO) 10.4 % (1.0-10.0); NEUTROPHILS % (AUTO) 78.4 % (45.0-75.0); PLATELET COUNT 283 K/UL (150-450); RED BLOOD COUNT 3.55 M/UL (4.70-6.10); RED CELL DISTRIBUTION WIDTH 14.2 % (11.6-14.8); WHITE BLOOD COUNT 8.6 K/UL (4.8-10.8)
[2019-12-04] MEDS: Aspirin Baby 81mg ORAL SCH ×2 (09:00→09:05)
[2019-12-04] MEDS ORDERED: Vancomycin 750mg/NS 275ml IVPB ONE ×2 (09:00)
--- NOTE | 2019-12-04 09:00 | NUR ---
NURSE NOTES: pt can't swallow meds, not administered. meds wasted in med room.
[2019-12-04] MEDS: Heparin 5000 units/ml inj SUBQ SCH ×2 (09:08→21:11)
--- NOTE | 2019-12-04 09:38 | Surgery Progress Note ---
Surgery Progress Note Subjective Additional Comments leukocytosis resolved no n/v/f/c comfortable micro noted Objective Last 24 Hour Vital Signs Date Time Temp Pulse Resp B/P (MAP) Pulse Ox O2 Delivery O2 Flow Rate FiO2 12/04/19 08:00 96.8 77 18 103/59 (74) 96 12/04/19 04:00 97.9 68 18 126/60 (82) 97 12/04/19 04:00 64 12/04/19 00:00 67 12/04/19 00:00 97.9 66 17 121/59 (79) 95 12/03/19 20:00 78 12/03/19 20:00 95.0 69 19 174/70 (104) 100 12/03/19 20:00 Room Air 12/03/19 16:00 Room Air 12/03/19 16:00 97.0 83 19 130/67 (88) 100 12/03/19 16:00 82 12/03/19 12:00 Room Air 12/03/19 12:00 96.8 82 19 138/66 (90) 100 12/03/19 12:00 79 I&O Intake and Output 12/03/19 12/04/19 19:00 07:00 Intake Total 91.67 ml 605 ml Output Total 400 ml 1200 ml Balance -308.33 ml -595 ml Intake IV Total 91.67 ml 605 ml Output Urine Total 400 ml 1200 ml # Bowel Movements 1 Dressing: other Wound: other Cardiovascular: RSR Respiratory: decreased breath sounds Abdomen: soft, non-tender, present bowel sounds Extremities: no edema, no tenderness, no cyanosis Laboratory Tests Test 12/03/19 11:51 12/03/19 15:00 12/03/19 15:56 12/03/19 21:56 POC Whole Blood Glucose 133 MG/DL (74-106) H 129 MG/DL (74-106) H 146 MG/DL (74-106) H Urine Random Sodium < 20 mmol/L (20-110) L Test 12/04/19 05:43 12/04/19 05:54 POC Whole Blood Glucose 140 MG/DL (74-106) H White Blood Count 8.6 K/UL (4.8-10.8) Red Blood Count 3.55 M/UL (4.70-6.10) L Hemoglobin 9.8 G/DL (14.2-18.0) L Hematocrit 31.6 % (42.0-52.0) L Mean Corpuscular Volume 89 FL (80-99) Mean Corpuscular Hemoglobin 27.6 PG (27.0-31.0) Mean Corpuscular Hemoglobin Concent 31.0 G/DL (32.0-36.0) L Red Cell Distribution Width 14.2 % (11.6-14.8) Platelet Count 283 K/UL (150-450) Mean Platelet Volume 5.6 FL (6.5-10.1) L Neutrophils (%) (Auto) 78.4 % (45.0-75.0) H Lymphocytes (%) (Auto) 8.8 % (20.0-45.0) L Monocytes (%) (Auto) 10.4 % (1.0-10.0) H Eosinophils (%) (Auto) 1.9 % (0.0-3.0) Basophils (%) (Auto) 0.6 % (0.0-2.0) Erythrocyte Sedimentation Rate Pending Sodium Level 145 MMOL/L (136-145) Potassium Level 3.9 MMOL/L (3.5-5.1) Chloride Level 109 MMOL/L (98-107) H Carbon Dioxide Level 27 MMOL/L (21-32) Anion Gap 9 mmol/L (5-15) Blood Urea Nitrogen 51 mg/dL (7-18) H Creatinine 1.7 MG/DL (0.55-1.30) H Estimat Glomerular Filtration Rate 38.2 mL/min (>60) Glucose Level 145 MG/DL (74-106) H Uric Acid 7.7 MG/DL (2.6-7.2) H Calcium Level 9.7 MG/DL (8.5-10.1) Phosphorus Level 3.3 MG/DL (2.5-4.9) Magnesium Level 2.3 MG/DL (1.8-2.4) Iron Level 18 ug/dL (50-175) L Total Iron Binding Capacity 162 ug/dL (250-450) L Percent Iron Saturation 11 % (15-50) L Unsaturated Iron Binding 144 ug/dL (112-346) Ferritin 256 NG/ML (8-388) Total Bilirubin 0.2 MG/DL (0.2-1.0) Gamma Glutamyl Transpeptidase < 3 U/L (5-85) L Aspartate Amino Transf (AST/SGOT) 21 U/L (15-37) Alanine Aminotransferase (ALT/SGPT) 10 U/L (12-78) L Alkaline Phosphatase 75 U/L (46-116) Total Creatine Kinase 102 U/L (26-308) Troponin I 0.131 ng/mL (0.000-0.056) C-Reactive Protein, Quantitative 6.1 mg/dL (0.00-0.90) H Pro-B-Type Natriuretic Peptide 3257 pg/mL (0-125) H Total Protein 6.7 G/DL (6.4-8.2) Albumin 2.4 G/DL (3.4-5.0) L Globulin 4.3 g/dL Albumin/Globulin Ratio 0.6 (1.0-2.7) L Vitamin B12 Level 720 PG/ML (193-986) Folate 6.3 NG/ML (8.6-58.9) L Thyroid Stimulating Hormone (TSH) 0.813 uiU/mL (0.358-3.740) Random Vancomycin Level 7.7 ug/mL Plan Problems: (1) History of diabetes mellitus (2) History of hypertension (3) Alzheimer's dementia (4) UTI (urinary tract infection) (5) Unilateral weakness (6) Acute dehydration (7) Altered level of consciousness (8) Subdural hematoma (9) Colon cancer (10) Severe protein-calorie malnutrition Assessment & Plan: DAILY ESTIMATED NEEDS: Needs based on Underweight, wasting, wound 40kg 30-35 kcals/kg 7565-7198 total kcals 1.25-2 g protein/kg 50-80 g total protein 25-30ml/kcal mL/kg 5235-8029 total fluid mLs NUTRITION DIAGNOSIS: Increased kcal and pro needs r/t underweight status as evidenced by low BMI, moderate to severe generalized wasting, w/ multiple areas of skin compromise, DTI x4. CURRENT DIET: NPO ENTERAL NUTRITION RECOMMENDATIONS: Glucerna 1.2 goal of 45ml/hr x24 hrs to provide 1080ml, 1296 kcal, 65g pro, 869ml free h2O - Obtain GI access, initiate Glucerna 1.2 @25ml/hr for 6 hrs - Advance as tolerated 10ml/hr q4-6 hrs to goal - Flush per MD/ HOB over 30 degrees ------ ADDITIONAL RECOMMENDATIONS: 1) W/ poor po intake, add Ensure TID -> not appropriate for oral po W/ elevated BG rec Glucerna TID-> not appropriate for oral po 2) Add FRANCISCA BID -> f/up w WC eval 3) SPOUT TENDER eval for texture, need for non oral feeds-> S/p SPOUT TENDER eval, not appropriate for oral diet, TF recs as above 4) Calibrated bed scale wts daily 5) Monitor lytes w/ TF, replete as needed ACUTE: ALOC x2 days with right side paralysis, CVA, intracranial bleed, seizure , postictal state, major electrolyte abnormality, severe sepsis, Acute dehydration. H/O: subdural hematoma, colon cancer status post treatment, HTN, Syncope and collapse, anemia, DM2, Alzheimer Dementia, CKD, severe protein-calorie malnutrition, hyperlipidemia, vitamin B12 deficiency, muscle wasting, lack of coordination. POLST: Not in chart. RELEVANT MEDS: Albuterol (SOB); Zofran (Nausea); Restoril (insomnia). VITALS ON 2L NASAL CANNULA: HR: 67; RR: 19; SP02 100% PLOF: Pt consumed mechanical soft with thin liquids [facility] at [facility]. Pt seen at bedside appears frail and weak. Pt able to open eye to verbal communication. Pt noted with copious, thick phlegm and debris in BOT and throughout oral cavity. Pt provided oral moisturizer and thorough oral care with Yankauer suction, removing thick phlegm, mildly improved verbal communication s/p oral care. Pt able to nod head yes when asked if Pt gets thickened liquids. 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 Pt given PO trial of nectar thick liquid teaspoons. Oral phase characterized by functional labial seal, poor bolus control resulting in suspected premature posterior spillage and subsequent suspected silent aspiration given laryngeal elevation was not well appreciated upon palpation despite verbal and tactile cues to Pt's larynx to initiate swallow; no swallow initiated. Pt did not cough or attempt to clear trial. Pt was able to eventually initiate a swallow with a 20 second delay, laryngeal elevation incomplete in feel upon palpation. Pt is a high risk for silent aspiration, would benefit from MBSS in future ( will monitor Pt's candidacy, not appropriate to participate in MBSS at this time ). RECOMMENDATIONS: 1. NPO with nutrition, hydration, and meds via NGT (12 Occitan). 2. Please provide oral care BID 3. Dysphagia therapy 3-5x per week x1 week. 4. Will monitor Pts appropriateness to participate in MBSS. 5. Pt would benefit from Speech, Language, and Cognitive communication evaluation given s/p lacunar infarcts. (11) Decubitus skin ulcer Assessment & Plan: Pt presented on admission with multiple Pressure injuries. Reabsorbing DTPI L Elbow. Base of Pressure Injury is dry and black centrally with maroon borders(L)2cm x (W)1.5cm. DTPI Sacrum (L)9.5cm x (W)11.5cm. Base of Pressure Injury is indurated purpuric with surrounding maroon borders. Pt verbalized tenderness when affected site minimally palpated. DTPI R Ischium(L)8cm x (W)9.5cm. Base of pressure injury is purpuric with maroon borders. Tender when minimally palpated. DTPI L trochanter(L)4cm x (W)3.2cm. Base of injury is purpuric with surrounding Maroon borders. Tender when minimally palpated. DTPI L Ischium (L)7cm x (W)5.4cm.Base of Injury is black with marginal erythema . Tender when minimally palpated. R Heel is boggy with non-blanchable erythema (L)3cm x (W)3.5cm. L Heel is boggy with non-Blanchable erythema(L)5cm x (W)3.5cm. L 1st metatarsal erythematous,tip is fluctuant. Pt complained tender when minimally palpated. No elevation in skin temp noted. Dry scab noted to dorsal L 2nd metatarsal. Tx.Plan: Apply Moisture Barrier Paste to Sacrum and bilat ischial tuberosities. Cover each site with Optifoam drsgs. Change every 3 days and prn. Apply Cavilon Skin Barrier to R and L trochanter. Cover each site with Optifoam drsgs. Change every 7 days and prn Apply Cavilon Skin Barrier to L and R elbows. Cover each site with Optifoam drsgs. Change every 7 days and prn. Apply Cavilon Skin Barrier to both heels and Malleoli. Cover each site with Optifoam drsgs. Change every 7 days and prn. Apply Cavilon Skin Barrier to bony prominences and cover with Optifoam drsgs as needed. Reposition at least every 2hours or as tolerated. Off-load heels with pillow. APM/KARTHIK Mattress overlay. Patel Merrill Dec 04, 2019 09:38
[2019-12-04] MEDS: D5 1/2NS 1,000 ML IV SCH (11:22)
--- NOTE | 2019-12-04 11:35 | NUR ---
NURSE NOTES: Dr magaña isn't here yet to do NG tube, RN called him and left massage, waiting to call back. will continue to monitor.
[2019-12-04 11:48] VITALS: BP 107/69
--- NOTE | 2019-12-04 12:00 | Consultation ---
DATE OF CONSULTATION: 12/03/2019 CONSULTING PHYSICIAN: Michael Villanueva M.D. HISTORY OF PRESENT ILLNESS: This is the second [facility] admission for this 89-year-old [place] man who was admitted with chief complaint of altered mental status. On 11/03/2019, the patient was admitted with a syncopal episode. He has a history of Alzheimer dementia, hypercholesterolemia, hypertension, AODM type 2 and glaucoma. The patient was admitted from a halfway. He is here from 11/03/2019 to 11/07/2019. It was noted that he was recently hospitalized at [facility] for a fall. There was subdural hematoma and followed by Neurosurgery at [facility]. Apparently, there was no surgery. He had another fall at the halfway, initially not responsive for approximately 1 minute. Blood pressure within normal limits. The patient was noted to have a right bundle-branch conduction defect in his EKG. He also had a history of colon cancer, status post resection. The patient was admitted to monitored floor in A3. The repeat CT scan revealed no acute abnormality. He was then discharged to [facility]. The patient was brought to the hospital on 12/02/2019 with altered level of consciousness for about 2 days. There was a report per the paramedics of his facial droop and paralysis with changes in mentation for the last couple of days. It is difficult to understand him. The patient was on aspirin, atorvastatin, calcium carbonate, Lexapro 10 mg, ferrous sulfate 325 mg, hydralazine, insulin, latanoprost eyedrops, lisinopril 5 mg, memantine 5 mg b.i.d., Januvia 50 mg tablet, sennosides, vitamin D, and sorbitol solution. On admission, the patient's white count is over 12,000 and today at 17,000. He was anemic with a normal platelet count. He had a hypochromic microcytic anemia. The patient's urinalysis revealed white blood cells too numerous to count and many urine bacteria, which was different from his previous urinalysis. He had no white blood cells on 11/04/2019 and only occasional bacteria. His random sodium was less than 20. The patient's chemistries revealed an elevated BUN at 64 with a creatinine of 2. His glucose is elevated at 191. Calcium was normal. Magnesium was normal. Phosphorus was normal. Creatine kinase was normal. His troponins were elevated. He had a low albumin. Cholesterol panel was negative. PT and PTT were normal. The patient's chest x-ray revealed an obscured left hemidiaphragm, suggestive of either pleural fluid or parenchymal consolidation/atelectasis. The CT scan of the brain revealed arteriosclerotic disease, prominence of the ventricular system as well as cortical sulci and . There is mild chronic ethmoid and sphenoid sinusitis. The patient had an MRI scan of the brain yesterday, which revealed multiple infarcts including left cerebellar hemisphere and left cerebellar peduncle, bilateral acute infarcts in the basal ganglia, and infarction within the medial aspect of the left frontal lobe and in the left centrum and a chronic lacunar infarct in the left centrum semiovale. There was a right cerebellar infarct. Hard to tell how much if the others were acute. Carotid duplex scan revealed a less than 50% stenosis bilaterally in the carotid arteries. There is patent bilateral vertebral arteries with antegrade flow. The patient had an EKG revealing normal sinus rhythm, left axis deviation, right bundle-branch block, possible inferior infarct. The MICHELLE echocardiogram was technically difficult. The ejection fraction 60 to 65%. He had aortic valve calcification, heavily thickened mitral valve leaflets, mitral annulus in the aortic root calcification, normal left ventricular chamber size. There is moderate aortic regurgitation and mitral diastolic velocity that suggest left ventricular relaxation compatible with mild left ventricular diastolic dysfunction. There is some pulmonic regurgitation noted. The renal ultrasound revealed small kidneys bilaterally. The patient previously was verbal at least a month ago. There is no family history of neurologic disease. PAST MEDICAL HISTORY/PAST MEDICAL ILLNESSES: See above including hyperlipidemia. ALLERGIES: Allergic to amlodipine, atenolol, losartan, penicillin, and simvastatin. SOCIAL HISTORY: He lives in a halfway, see above. FAMILY HISTORY: Unavailable. REVIEW OF SYSTEMS: Unavailable. PHYSICAL EXAMINATION: GENERAL: The patient is a well-developed, thin, cachectic-appearing man, lying in bed. He is lethargic. VITAL SIGNS: Temperature is 97 degrees, pulse is 83, blood pressure 130/67, SpO2 100%, and respiratory rate 19. HEENT: Reveals evidence of probable cataract surgery and he is edentulous. NECK: Pretty stiff in anterior-posterior and lateral directions. Carotids are +2. No bruits could be appreciated. LUNGS: Bilateral rhonchi. CARDIOVASCULAR SYSTEM: PMI could not be felt. JVP is difficult to evaluate. The patient probably had a normal S1 and S2, probably physiologically split, difficult to hear. There are no murmurs, rubs, or clicks noted. ABDOMEN: Soft. No tenderness noted. No evidence of organomegaly. BACK: Not tested. EXTREMITIES: Multiple bandages on his legs. NEUROLOGIC EXAMINATION: MENTAL STATUS: The patient is lethargic. He does answer to his name. He has very little to no spoken speech and he is very dysarthric. He could probably open his eyes to command, but could not lift his arms to command. CRANIAL NERVE EXAMINATION: CRANIAL NERVE II: Visual reece at least on the right probably intact. CRANIAL NERVES III, IV AND : The eyes are in the midline. The pupils are about 5 mm, somewhat irregular, poorly or nonreactive to light. CRANIAL NERVE V: Corneals appear to be intact bilaterally. CRANIAL NERVE VII: Face appeared to be fairly symmetrical. CRANIAL NERVE VIII: There is some auditory acuity noted. CRANIAL NERVES IX AND X: Not tested. CRANIAL NERVES XI AND XII: Could not be tested. MUSCLE EXAMINATION: He had increased tone in the right upper extremity and paratonia in the left upper extremity. He had increased tone bilaterally in the lower extremities. Muscle bulk was significantly decreased in all 4 extremities. STRENGTH: He could move his left arm, grab hold with a blanket. His right arm has basically no movement. He had decreased movement in his legs, probably the left leg could move more than the right, but there was some withdrawal on testing for Babinski response. REFLEXES: Zero on the upper and lower extremities as best could be tested. Testing for Babinski response to his withdrawal. SENSORY: There was some reaction to pain in all 4 extremities. IMPRESSION: The patient probably has a combination of Alzheimer disease and multi-infarct dementia. The patient's deterioration in mental status is probably metabolic, mainly due to urinary tract infection. There is a suggestion that he could have pneumonia and the white count is elevated and suggesting infection. The patient was placed on Rocephin, Azactam, meropenem, and vancomycin. Rocephin was only given once and Azactam was probably not given. He is also on aspirin, clonidine, and Lexapro. He was given 1 dose of Ativan today. Therefore, the Ativan is helping to cause change in mental status. He was started on Restoril. The patient is already on aspirin and we may want to increase his aspirin to [address] him on Plavix. The patient also appears to have a prerenal azotemia and saw Dr. Otero acute on chronic renal failure. Therefore, the decreased renal function is also contributing to his altered mental status. I do not have any evidence of meningitis at this time. Plavix added to his regimen and continue medication for 3 months and then discontinue it. I do not think this patient has Wernicke's encephalopathy at this time seems to be malnourished. PLAN: 1. Aspirin 325 mg a day. 2. Plavix 75 mg a day. 3. I will speak to you about this case. 4. Treat the patient's infection. Thank you for this interesting case. Michael Villanueva MD DR: Zeeshan JOB#: [id number] CC:
--- NOTE | 2019-12-04 14:00 | NUR ---
NURSE NOTES: NG tube inserted by Dr Johnson but XR shows isn't in place, RN inserted a new one waiting for XR result to start feeding tube.
[2019-12-04 16:00] VITALS: BP 100/71
--- NOTE | 2019-12-04 19:33 | Pulmonology Progress Note ---
Subjective ROS Limited/Unobtainable: Yes Constitutional: Reports: no symptoms HEENT: Repors: no symptoms Allergies: Coded Allergies: ATENOLOL (Verified Allergy, Unknown, 05/23/16) LOSARTAN (Verified Allergy, Unknown, 05/23/16) SIMVASTATIN (Verified Allergy, Unknown, 05/23/16) Uncoded Allergies: AMLIODIPINE (Allergy, Unknown, 05/23/16) PENICILLIN (Allergy, Unknown, 12/03/19) Tolerated Ceftriaxone on 12/02/19 Objective Last 24 Hour Vital Signs Date Time Temp Pulse Resp B/P (MAP) Pulse Ox O2 Delivery O2 Flow Rate FiO2 12/04/19 16:00 97.6 79 19 100/71 (81) 97 12/04/19 15:25 67 12/04/19 15:25 67 12/04/19 11:58 79 12/04/19 11:48 96.7 60 20 107/69 (82) 98 12/04/19 09:00 Room Air 12/04/19 08:00 96.8 77 18 103/59 (74) 96 12/04/19 07:42 66 12/04/19 04:00 97.9 68 18 126/60 (82) 97 12/04/19 04:00 64 12/04/19 00:00 67 12/04/19 00:00 97.9 66 17 121/59 (79) 95 12/03/19 20:00 78 12/03/19 20:00 95.0 69 19 174/70 (104) 100 12/03/19 20:00 Room Air Intake and Output 12/03/19 12/04/19 19:00 07:00 Intake Total 91.67 ml 605 ml Output Total 400 ml 1200 ml Balance -308.33 ml -595 ml Intake IV Total 91.67 ml 605 ml Output Urine Total 400 ml 1200 ml # Bowel Movements 1 General Appearance: cachetic HEENT: normocephalic, atraumatic Respiratory: chest wall non-tender, lungs clear Cardiovascular: normal peripheral pulses Abdomen: normal bowel sounds, soft, non tender Extremities: no cyanosis Skin: no ulcers Neurologic: no motor/sensory deficits Microbiology Date/Time Source Procedure Growth Status 12/02/19 19:00 Blood Blood Culture - Preliminary NO GROWTH AFTER 24 HOURS Resulted 12/02/19 18:45 Blood Blood Culture - Preliminary NO GROWTH AFTER 24 HOURS Resulted 12/02/19 18:23 Nasopharynx SARS-CoV-2 RdRp Gene Assay - Final Complete 12/02/19 19:00 Urine,Clean Catch Urine Culture - Preliminary Gram Negative Bacillus 1 Resulted Laboratory Tests 12/03/19 21:56: POC Whole Blood Glucose 146H 12/04/19 05:43: POC Whole Blood Glucose 140H 12/04/19 05:54: White Blood Count 8.6, Red Blood Count 3.55L, Hemoglobin 9.8L, Hematocrit 31.6L , Mean Corpuscular Volume 89, Mean Corpuscular Hemoglobin 27.6, Mean Corpuscular Hemoglobin Concent 31.0L, Red Cell Distribution Width 14.2, Platelet Count 283, Mean Platelet Volume 5.6L, Neutrophils (%) (Auto) 78.4H, Lymphocytes (%) (Auto) 8.8L, Monocytes (%) (Auto) 10.4H, Eosinophils (%) (Auto) 1.9, Basophils (%) (Auto) 0.6, Erythrocyte Sedimentation Rate 52H, Sodium Level 145, Potassium Level 3.9, Chloride Level 109H, Carbon Dioxide Level 27, Anion Gap 9, Blood Urea Nitrogen 51H, Creatinine 1.7H, Estimat Glomerular Filtration Rate 38.2, Glucose Level 145H, Uric Acid 7.7H, Calcium Level 9.7, Phosphorus Level 3.3, Magnesium Level 2.3, Iron Level 18L, Total Iron Binding Capacity 162L , Percent Iron Saturation 11L, Unsaturated Iron Binding 144, Ferritin 256, Total Bilirubin 0.2, Gamma Glutamyl Transpeptidase < 3L, Aspartate Amino Transf (AST/SGOT) 21, Alanine Aminotransferase (ALT/SGPT) 10L, Alkaline Phosphatase 75 , Total Creatine Kinase 102, Troponin I 0.131H, C-Reactive Protein, Quantitative 6.1H, Pro-B-Type Natriuretic Peptide 3257H, Total Protein 6.7, Albumin 2.4L, Globulin 4.3, Albumin/Globulin Ratio 0.6L, Vitamin B12 Level 720, Folate 6.3L, Thyroid Stimulating Hormone (TSH) 0.813, Random Vancomycin Level 7.7 12/04/19 11:21: POC Whole Blood Glucose 104 Current Medications Medications (Trade) Dose Ordered Sig/James Route PRN Reason Start Time Stop Time Status Last Admin Dose Admin Acetaminophen (Tylenol) 650 mg Q4H PRN ORAL fever 12/03/19 18:48 01/02/20 18:47 Albuterol/ Ipratropium (Albuterol/ Ipratropium) 3 ml Q4H PRN HHN Shortness of Breath 12/03/19 19:15 12/07/19 19:14 Aspirin (ASA) 81 mg DAILY ORAL 12/04/19 09:00 01/17/20 08:59 Clonidine HCl (Catapres Tab) 0.1 mg Q4H PRN ORAL For High Blood Pressure 12/03/19 19:15 03/01/20 19:14 Dextrose (Dextrose 50%) 25 ml Q30M PRN IV Hypoglycemia 12/03/19 18:45 03/01/20 19:14 Dextrose (Dextrose 50%) 50 ml Q30M PRN IV Hypoglycemia 12/03/19 18:45 03/01/20 19:14 Dextrose/Sodium Chloride 1,000 ml @ 50 mls/hr Q20H IV 12/03/19 18:48 01/02/20 18:47 12/04/19 11:22 Escitalopram Oxalate (Lexapro) 10 mg DAILY ORAL 12/04/19 09:00 01/02/20 08:59 Heparin Sodium (Porcine) (Heparin 5000 units/ml) 5,000 units EVERY 12 HOURS SUBQ 12/03/19 21:00 01/16/20 20:59 12/04/19 09:08 Insulin Aspart (NovoLOG) BEFORE MEALS AND HS SUBQ 12/03/19 21:00 03/01/20 20:59 12/04/19 05:46 Meropenem 500 mg/ Sodium Chloride 55 ml @ 110 mls/hr Q12HR@0300,1500 IVPB 12/04/19 03:00 12/08/19 14:59 12/04/19 15:00 Nitroglycerin (Ntg) 0.4 mg Q5M X 3 DOSES PRN SL Prn Chest Pain 12/03/19 18:45 01/01/20 19:14 Ondansetron HCl (Zofran) 4 mg Q6H PRN IVP Nausea & Vomiting 12/03/19 19:15 01/01/20 19:14 Polyethylene Glycol (Miralax) 17 gm HSPRN PRN ORAL Constipation 12/03/19 18:49 01/02/20 18:48 Promethazine HCl/ Codeine (Phenergan with Codeine) 5 ml Q4H PRN ORAL For Cough 12/03/19 19:15 01/01/20 19:14 Temazepam (Restoril) 15 mg HSPRN PRN ORAL Insomnia 12/03/19 19:15 12/09/19 19:14 Vancomycin HCl (Vanco pharmacy to dose) 1 ea DAILY PRN MISC Per rx protocol 12/04/19 09:00 01/02/20 11:59 Assessment/Plan Problems: (1) Altered level of consciousness (2) UTI (urinary tract infection) (3) Severe protein-calorie malnutrition (4) History of diabetes mellitus (5) History of hypertension (6) Alzheimer's dementia (7) Unilateral weakness (8) Subdural hematoma (9) Colon cancer Assessment/Plan wbc lower Urine has GNB f/u electrolytes Neurology note appreciated Cherelle Vera MD Dec 04, 2019 19:33
[2019-12-04 20:00] VITALS: BP 143/56
--- NOTE | 2019-12-04 20:03 | NUR ---
NURSE HAND-OFF REPORT: Important Events on Shift: Patient Status: Diet: Pending Orders: Pending Results/Labs: Pending MD notification: Latest Vital Signs: Temperature 97.6 , Pulse 79 , B/P 100 /71 , Respiratory Rate 19 , O2 SAT 97 , Room Air, O2 Flow Rate . Vital Sign Comment: EKG Rhythm: Sinus Rhythm Rhythm change?: N MD Notified?: N - MD Response: Latest Zhang Fall Score: 50 Fall Risk: High Risk Safety Measures: Call light Within Reach, Bed Alarm Zone 2, Side Rails Side Rails x3, Bed position Low and Locked. Fall Precautions: Yellow Socks Yellow Gown Report given to . Pt is stable, no stress noted, endorsed plan of care, endorsed to F/U ng tube feeding.
--- NOTE | 2019-12-04 20:15 | NUR ---
NURSE NOTES: Received patient from ELLI Sanchez. Patient shows no signs of distress or pain. Patient is AO x1. He has an NG tube placed by dayshift RN. Per dayshift chest x ray said placement was good. Will wait for confirmation. IV is in place and intact. There are no signs of erythema, infiltration, or bleeding noted at the time. Bed is in the lowest position, call light is within reach, patient is on bilateral soft wrist restraints. Will continue to monitor.
--- NOTE | 2019-12-04 20:26 | NUR ---
NURSE NOTES: Called atmospheric technician, NG tube is in place and good to use.
--- NOTE | 2019-12-04 20:37 | Cardiology Progress Note ---
Assessment/Plan Assessment/Plan 1. 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 2. Altered mental status, probably secondary to above. 3. Renal insufficiency acute on chronic. 4. Urinary tract infection. 5. History of subdural hematoma post fall. 6. B12 deficiency. 7. Diabetes mellitus. 8. Anemia. 9. Iron deficiency. neuro noted await final input post review or mri report by neuologist urin cx + but blood cx neg getting ivf carotid less thn 50% stenosis tele sinus no afib or svt now has ngt will be starting feeding soon dw/s onc at bedside he has advance directive which he will obtian copies , i will loosk in my offic records as well to have availabel Subjective Cardiovascular: Denies: chest pain, palpitations Respiratory: Denies: shortness of breath Gastrointestinal/Abdominal: Denies: abdominal pain Objective Last 24 Hour Vital Signs Date Time Temp Pulse Resp B/P (MAP) Pulse Ox O2 Delivery O2 Flow Rate FiO2 12/04/19 16:00 97.6 79 19 100/71 (81) 97 12/04/19 15:25 67 12/04/19 15:25 67 12/04/19 11:58 79 12/04/19 11:48 96.7 60 20 107/69 (82) 98 12/04/19 09:00 Room Air 12/04/19 08:00 96.8 77 18 103/59 (74) 96 12/04/19 07:42 66 12/04/19 04:00 97.9 68 18 126/60 (82) 97 12/04/19 04:00 64 12/04/19 00:00 67 12/04/19 00:00 97.9 66 17 121/59 (79) 95 General Appearance: no apparent distress, alert, other - ngt inplace ist is hard to understand his words Cardiovascular: normal rate Respiratory/Chest: lungs clear - ant Abdomen: normal bowel sounds, non tender, soft Extremities: no swelling Intake and Output 12/03/19 12/04/19 19:00 07:00 Intake Total 91.67 ml 605 ml Output Total 400 ml 1200 ml Balance -308.33 ml -595 ml Intake IV Total 91.67 ml 605 ml Output Urine Total 400 ml 1200 ml # Bowel Movements 1 Laboratory Tests Test 12/03/19 21:56 12/04/19 05:43 12/04/19 05:54 12/04/19 11:21 POC Whole Blood Glucose 146 MG/DL (74-106) H 140 MG/DL (74-106) H 104 MG/DL (74-106) White Blood Count 8.6 K/UL (4.8-10.8) Red Blood Count 3.55 M/UL (4.70-6.10) L Hemoglobin 9.8 G/DL (14.2-18.0) L Hematocrit 31.6 % (42.0-52.0) L Mean Corpuscular Volume 89 FL (80-99) Mean Corpuscular Hemoglobin 27.6 PG (27.0-31.0) Mean Corpuscular Hemoglobin Concent 31.0 G/DL (32.0-36.0) L Red Cell Distribution Width 14.2 % (11.6-14.8) Platelet Count 283 K/UL (150-450) Mean Platelet Volume 5.6 FL (6.5-10.1) L Neutrophils (%) (Auto) 78.4 % (45.0-75.0) H Lymphocytes (%) (Auto) 8.8 % (20.0-45.0) L Monocytes (%) (Auto) 10.4 % (1.0-10.0) H Eosinophils (%) (Auto) 1.9 % (0.0-3.0) Basophils (%) (Auto) 0.6 % (0.0-2.0) Erythrocyte Sedimentation Rate 52 MM/HR (0-20) H Sodium Level 145 MMOL/L (136-145) Potassium Level 3.9 MMOL/L (3.5-5.1) Chloride Level 109 MMOL/L (98-107) H Carbon Dioxide Level 27 MMOL/L (21-32) Anion Gap 9 mmol/L (5-15) Blood Urea Nitrogen 51 mg/dL (7-18) H Creatinine 1.7 MG/DL (0.55-1.30) H Estimat Glomerular Filtration Rate 38.2 mL/min (>60) Glucose Level 145 MG/DL (74-106) H Uric Acid 7.7 MG/DL (2.6-7.2) H Calcium Level 9.7 MG/DL (8.5-10.1) Phosphorus Level 3.3 MG/DL (2.5-4.9) Magnesium Level 2.3 MG/DL (1.8-2.4) Iron Level 18 ug/dL (50-175) L Total Iron Binding Capacity 162 ug/dL (250-450) L Percent Iron Saturation 11 % (15-50) L Unsaturated Iron Binding 144 ug/dL (112-346) Ferritin 256 NG/ML (8-388) Total Bilirubin 0.2 MG/DL (0.2-1.0) Gamma Glutamyl Transpeptidase < 3 U/L (5-85) L Aspartate Amino Transf (AST/SGOT) 21 U/L (15-37) Alanine Aminotransferase (ALT/SGPT) 10 U/L (12-78) L Alkaline Phosphatase 75 U/L (46-116) Total Creatine Kinase 102 U/L (26-308) Troponin I 0.131 ng/mL (0.000-0.056) C-Reactive Protein, Quantitative 6.1 mg/dL (0.00-0.90) H Pro-B-Type Natriuretic Peptide 3257 pg/mL (0-125) H Total Protein 6.7 G/DL (6.4-8.2) Albumin 2.4 G/DL (3.4-5.0) L Globulin 4.3 g/dL Albumin/Globulin Ratio 0.6 (1.0-2.7) L Vitamin B12 Level 720 PG/ML (193-986) Folate 6.3 NG/ML (8.6-58.9) L Thyroid Stimulating Hormone (TSH) 0.813 uiU/mL (0.358-3.740) Random Vancomycin Level 7.7 ug/mL Rapid Plasma Reagin Pending Microbiology Date/Time Source Procedure Growth Status 12/02/19 19:00 Blood Blood Culture - Preliminary NO GROWTH AFTER 24 HOURS Resulted 12/02/19 18:45 Blood Blood Culture - Preliminary NO GROWTH AFTER 24 HOURS Resulted 12/02/19 18:23 Nasopharynx SARS-CoV-2 RdRp Gene Assay - Final Complete 12/02/19 19:00 Urine,Clean Catch Urine Culture - Preliminary Gram Negative Bacillus 1 Resulted Beka Saleh MD Dec 04, 2019 20:37
--- NOTE | 2019-12-04 20:38 | Infectious Diseases Prog Note ---
Assessment/Plan Assessment: COVID19 neg x1 (12/01 rapid COVID PCR neg) UTI -u/a wbc tnct, nit neg, leuk +3; ucx p Afebrile Leukocytosis; worsening -CXR p -Bcx p Acute encephalopathy/facial droop- Multifocal infarcts -12/01 Brain MRI wo: Multifocal infarcts the largest of which are located within the norberto left of midline as well as the left frontal lobe medially. Multifocal lacunar infarcts are noted scattered bilaterally including the cerebellar hemispheres and the left cerebellar peduncle. Age-related changes. CT head wo: Age-related atrophy and small vessel disease of aging, similar to that noted on the previous study. No acute intracranial pathology. If there is concern for etiology such as early acute lacunar infarcts, magnetic resonance imaging of the brain with diffusion-weighted sequences should be performed for follow-up FRANKY on CKD, worsening Dm2 HTN HLD colon CA sp treatment Alzheimer's dementia fall w/ resultant [facility] resident ([facility]) Plan: -Continue empiric IV Vancomycin #2 and Meropenem #2 -12/02 Sp Aztreonam #1 -12/01 SP Ceftriaxone x1 -f/u cx -Monitor CBC/CMP, temperatures -aspiration precautions -f/u CXR Thank you for this consultation. Will continue to follow along with you. Discussed with RN. Subjective Allergies: Coded Allergies: ATENOLOL (Verified Allergy, Unknown, 05/23/16) LOSARTAN (Verified Allergy, Unknown, 05/23/16) SIMVASTATIN (Verified Allergy, Unknown, 05/23/16) Uncoded Allergies: AMLIODIPINE (Allergy, Unknown, 05/23/16) PENICILLIN (Allergy, Unknown, 12/03/19) Tolerated Ceftriaxone on 12/02/19 +late entry+ afebrile leukocytosis resolevd Objective Last 24 Hour Vital Signs Date Time Temp Pulse Resp B/P (MAP) Pulse Ox O2 Delivery O2 Flow Rate FiO2 12/04/19 16:00 97.6 79 19 100/71 (81) 97 12/04/19 15:25 67 12/04/19 15:25 67 12/04/19 11:58 79 12/04/19 11:48 96.7 60 20 107/69 (82) 98 12/04/19 09:00 Room Air 12/04/19 08:00 96.8 77 18 103/59 (74) 96 9/3/20 07:42 66 12/04/19 04:00 97.9 68 18 126/60 (82) 97 12/04/19 04:00 64 12/04/19 00:00 67 12/04/19 00:00 97.9 66 17 121/59 (79) 95 Height (Feet): 5 Height (Inches): 6.00 Weight (Pounds): 86 Microbiology Date/Time Source Procedure Growth Status 12/02/19 19:00 Blood Blood Culture - Preliminary NO GROWTH AFTER 24 HOURS Resulted 12/02/19 18:45 Blood Blood Culture - Preliminary NO GROWTH AFTER 24 HOURS Resulted 12/02/19 18:23 Nasopharynx SARS-CoV-2 RdRp Gene Assay - Final Complete 12/02/19 19:00 Urine,Clean Catch Urine Culture - Preliminary Gram Negative Bacillus 1 Resulted Laboratory Tests Test 12/03/19 21:56 12/04/19 05:43 12/04/19 05:54 12/04/19 11:21 POC Whole Blood Glucose 146 MG/DL (74-106) H 140 MG/DL (74-106) H 104 MG/DL (74-106) White Blood Count 8.6 K/UL (4.8-10.8) Red Blood Count 3.55 M/UL (4.70-6.10) L Hemoglobin 9.8 G/DL (14.2-18.0) L Hematocrit 31.6 % (42.0-52.0) L Mean Corpuscular Volume 89 FL (80-99) Mean Corpuscular Hemoglobin 27.6 PG (27.0-31.0) Mean Corpuscular Hemoglobin Concent 31.0 G/DL (32.0-36.0) L Red Cell Distribution Width 14.2 % (11.6-14.8) Platelet Count 283 K/UL (150-450) Mean Platelet Volume 5.6 FL (6.5-10.1) L Neutrophils (%) (Auto) 78.4 % (45.0-75.0) H Lymphocytes (%) (Auto) 8.8 % (20.0-45.0) L Monocytes (%) (Auto) 10.4 % (1.0-10.0) H Eosinophils (%) (Auto) 1.9 % (0.0-3.0) Basophils (%) (Auto) 0.6 % (0.0-2.0) Erythrocyte Sedimentation Rate 52 MM/HR (0-20) H Sodium Level 145 MMOL/L (136-145) Potassium Level 3.9 MMOL/L (3.5-5.1) Chloride Level 109 MMOL/L (98-107) H Carbon Dioxide Level 27 MMOL/L (21-32) Anion Gap 9 mmol/L (5-15) Blood Urea Nitrogen 51 mg/dL (7-18) H Creatinine 1.7 MG/DL (0.55-1.30) H Estimat Glomerular Filtration Rate 38.2 mL/min (>60) Glucose Level 145 MG/DL (74-106) H Uric Acid 7.7 MG/DL (2.6-7.2) H Calcium Level 9.7 MG/DL (8.5-10.1) Phosphorus Level 3.3 MG/DL (2.5-4.9) Magnesium Level 2.3 MG/DL (1.8-2.4) Iron Level 18 ug/dL (50-175) L Total Iron Binding Capacity 162 ug/dL (250-450) L Percent Iron Saturation 11 % (15-50) L Unsaturated Iron Binding 144 ug/dL (112-346) Ferritin 256 NG/ML (8-388) Total Bilirubin 0.2 MG/DL (0.2-1.0) Gamma Glutamyl Transpeptidase < 3 U/L (5-85) L Aspartate Amino Transf (AST/SGOT) 21 U/L (15-37) Alanine Aminotransferase (ALT/SGPT) 10 U/L (12-78) L Alkaline Phosphatase 75 U/L (46-116) Total Creatine Kinase 102 U/L (26-308) Troponin I 0.131 ng/mL (0.000-0.056) C-Reactive Protein, Quantitative 6.1 mg/dL (0.00-0.90) H Pro-B-Type Natriuretic Peptide 3257 pg/mL (0-125) H Total Protein 6.7 G/DL (6.4-8.2) Albumin 2.4 G/DL (3.4-5.0) L Globulin 4.3 g/dL Albumin/Globulin Ratio 0.6 (1.0-2.7) L Vitamin B12 Level 720 PG/ML (193-986) Folate 6.3 NG/ML (8.6-58.9) L Thyroid Stimulating Hormone (TSH) 0.813 uiU/mL (0.358-3.740) Random Vancomycin Level 7.7 ug/mL Rapid Plasma Reagin Pending Current Medications Medications (Trade) Dose Ordered Sig/James Route PRN Reason Start Time Stop Time Status Last Admin Dose Admin Acetaminophen (Tylenol) 650 mg Q4H PRN ORAL fever 12/03/19 18:48 01/02/20 18:47 Albuterol/ Ipratropium (Albuterol/ Ipratropium) 3 ml Q4H PRN HHN Shortness of Breath 12/03/19 19:15 12/07/19 19:14 Aspirin (ASA) 81 mg DAILY ORAL 12/04/19 09:00 01/17/20 08:59 Clonidine HCl (Catapres Tab) 0.1 mg Q4H PRN ORAL For High Blood Pressure 12/03/19 19:15 03/01/20 19:14 Dextrose (Dextrose 50%) 25 ml Q30M PRN IV Hypoglycemia 12/03/19 18:45 03/01/20 19:14 Dextrose (Dextrose 50%) 50 ml Q30M PRN IV Hypoglycemia 12/03/19 18:45 03/01/20 19:14 Dextrose/Sodium Chloride 1,000 ml @ 50 mls/hr Q20H IV 12/03/19 18:48 01/02/20 18:47 12/04/19 11:22 Escitalopram Oxalate (Lexapro) 10 mg DAILY ORAL 12/04/19 09:00 01/02/20 08:59 Heparin Sodium (Porcine) (Heparin 5000 units/ml) 5,000 units EVERY 12 HOURS SUBQ 12/03/19 21:00 01/16/20 20:59 12/04/19 09:08 Insulin Aspart (NovoLOG) BEFORE MEALS AND HS SUBQ 12/03/19 21:00 03/01/20 20:59 12/04/19 05:46 Meropenem 500 mg/ Sodium Chloride 55 ml @ 110 mls/hr Q12HR@0300,1500 IVPB 12/04/19 03:00 12/08/19 14:59 12/04/19 15:00 Nitroglycerin (Ntg) 0.4 mg Q5M X 3 DOSES PRN SL Prn Chest Pain 12/03/19 18:45 01/01/20 19:14 Ondansetron HCl (Zofran) 4 mg Q6H PRN IVP Nausea & Vomiting 12/03/19 19:15 01/01/20 19:14 Polyethylene Glycol (Miralax) 17 gm HSPRN PRN ORAL Constipation 12/03/19 18:49 01/02/20 18:48 Promethazine HCl/ Codeine (Phenergan with Codeine) 5 ml Q4H PRN ORAL For Cough 12/03/19 19:15 01/01/20 19:14 Temazepam (Restoril) 15 mg HSPRN PRN ORAL Insomnia 12/03/19 19:15 12/09/19 19:14 Vancomycin HCl ([facility] pharmacy to dose) 1 ea DAILY PRN MISC Per rx protocol 12/04/19 09:00 01/02/20 11:59 Velma Lopez M.D. Dec 04, 2019 20:38
--- NOTE | 2019-12-04 23:00 | Internal Med Progress Note ---
Subjective Physician Name Darren Spencer Attending Physician Darren Spencer MD Current Medications Medications (Trade) Dose Ordered Sig/James Route PRN Reason Start Time Stop Time Status Last Admin Dose Admin Acetaminophen (Tylenol) 650 mg Q4H PRN ORAL fever 12/03/19 18:48 01/02/20 18:47 Albuterol/ Ipratropium (Albuterol/ Ipratropium) 3 ml Q4H PRN HHN Shortness of Breath 12/03/19 19:15 12/07/19 19:14 Aspirin (ASA) 81 mg DAILY ORAL 12/04/19 09:00 01/17/20 08:59 Clonidine HCl (Catapres Tab) 0.1 mg Q4H PRN ORAL For High Blood Pressure 12/03/19 19:15 03/01/20 19:14 Dextrose (Dextrose 50%) 25 ml Q30M PRN IV Hypoglycemia 12/03/19 18:45 03/01/20 19:14 Dextrose (Dextrose 50%) 50 ml Q30M PRN IV Hypoglycemia 12/03/19 18:45 03/01/20 19:14 Dextrose/Sodium Chloride 1,000 ml @ 50 mls/hr Q20H IV 12/03/19 18:48 01/02/20 18:47 12/04/19 11:22 Escitalopram Oxalate (Lexapro) 10 mg DAILY ORAL 12/04/19 09:00 01/02/20 08:59 Folic Acid (Folate) 2 mg DAILY NG 12/05/19 09:00 01/04/20 08:59 Heparin Sodium (Porcine) (Heparin 5000 units/ml) 5,000 units EVERY 12 HOURS SUBQ 12/03/19 21:00 01/16/20 20:59 12/04/19 21:11 Insulin Aspart (NovoLOG) BEFORE MEALS AND HS SUBQ 12/03/19 21:00 03/01/20 20:59 12/04/19 05:46 Meropenem 500 mg/ Sodium Chloride 55 ml @ 110 mls/hr Q12HR@0300,1500 IVPB 12/04/19 03:00 12/08/19 14:59 12/04/19 15:00 Nitroglycerin (Ntg) 0.4 mg Q5M X 3 DOSES PRN SL Prn Chest Pain 12/03/19 18:45 01/01/20 19:14 Ondansetron HCl (Zofran) 4 mg Q6H PRN IVP Nausea & Vomiting 12/03/19 19:15 01/01/20 19:14 Polyethylene Glycol (Miralax) 17 gm HSPRN PRN ORAL Constipation 12/03/19 18:49 01/02/20 18:48 Promethazine HCl/ Codeine (Phenergan with Codeine) 5 ml Q4H PRN ORAL For Cough 12/03/19 19:15 01/01/20 19:14 Temazepam (Restoril) 15 mg HSPRN PRN ORAL Insomnia 12/03/19 19:15 12/09/19 19:14 Vancomycin HCl ([facility] pharmacy to dose) 1 ea DAILY PRN MISC Per rx protocol 12/04/19 09:00 01/02/20 11:59 Allergies: Coded Allergies: ATENOLOL (Verified Allergy, Unknown, 05/23/16) LOSARTAN (Verified Allergy, Unknown, 05/23/16) SIMVASTATIN (Verified Allergy, Unknown, 05/23/16) Uncoded Allergies: AMLIODIPINE (Allergy, Unknown, 05/23/16) PENICILLIN (Allergy, Unknown, 12/03/19) Tolerated Ceftriaxone on 12/02/19 Subjective Awake, more responsive, open eyes,WBC 8.6, renal function improving. Objective Last Vital Signs Date Time Temp Pulse Resp B/P (MAP) Pulse Ox O2 Delivery O2 Flow Rate FiO2 12/04/19 16:00 97.6 79 19 100/71 (81) 97 12/04/19 09:00 Room Air Laboratory Tests Test 12/04/19 05:43 12/04/19 05:54 12/04/19 11:21 POC Whole Blood Glucose 140 MG/DL (74-106) H 104 MG/DL (74-106) White Blood Count 8.6 K/UL (4.8-10.8) Red Blood Count 3.55 M/UL (4.70-6.10) L Hemoglobin 9.8 G/DL (14.2-18.0) L Hematocrit 31.6 % (42.0-52.0) L Mean Corpuscular Volume 89 FL (80-99) Mean Corpuscular Hemoglobin 27.6 PG (27.0-31.0) Mean Corpuscular Hemoglobin Concent 31.0 G/DL (32.0-36.0) L Red Cell Distribution Width 14.2 % (11.6-14.8) Platelet Count 283 K/UL (150-450) Mean Platelet Volume 5.6 FL (6.5-10.1) L Neutrophils (%) (Auto) 78.4 % (45.0-75.0) H Lymphocytes (%) (Auto) 8.8 % (20.0-45.0) L Monocytes (%) (Auto) 10.4 % (1.0-10.0) H Eosinophils (%) (Auto) 1.9 % (0.0-3.0) Basophils (%) (Auto) 0.6 % (0.0-2.0) Erythrocyte Sedimentation Rate 52 MM/HR (0-20) H Sodium Level 145 MMOL/L (136-145) Potassium Level 3.9 MMOL/L (3.5-5.1) Chloride Level 109 MMOL/L (98-107) H Carbon Dioxide Level 27 MMOL/L (21-32) Anion Gap 9 mmol/L (5-15) Blood Urea Nitrogen 51 mg/dL (7-18) H Creatinine 1.7 MG/DL (0.55-1.30) H Estimat Glomerular Filtration Rate 38.2 mL/min (>60) Glucose Level 145 MG/DL (74-106) H Uric Acid 7.7 MG/DL (2.6-7.2) H Calcium Level 9.7 MG/DL (8.5-10.1) Phosphorus Level 3.3 MG/DL (2.5-4.9) Magnesium Level 2.3 MG/DL (1.8-2.4) Iron Level 18 ug/dL (50-175) L Total Iron Binding Capacity 162 ug/dL (250-450) L Percent Iron Saturation 11 % (15-50) L Unsaturated Iron Binding 144 ug/dL (112-346) Ferritin 256 NG/ML (8-388) Total Bilirubin 0.2 MG/DL (0.2-1.0) Gamma Glutamyl Transpeptidase < 3 U/L (5-85) L Aspartate Amino Transf (AST/SGOT) 21 U/L (15-37) Alanine Aminotransferase (ALT/SGPT) 10 U/L (12-78) L Alkaline Phosphatase 75 U/L (46-116) Total Creatine Kinase 102 U/L (26-308) Troponin I 0.131 ng/mL (0.000-0.056) C-Reactive Protein, Quantitative 6.1 mg/dL (0.00-0.90) H Pro-B-Type Natriuretic Peptide 3257 pg/mL (0-125) H Total Protein 6.7 G/DL (6.4-8.2) Albumin 2.4 G/DL (3.4-5.0) L Globulin 4.3 g/dL Albumin/Globulin Ratio 0.6 (1.0-2.7) L Vitamin B12 Level 720 PG/ML (193-986) Folate 6.3 NG/ML (8.6-58.9) L Thyroid Stimulating Hormone (TSH) 0.813 uiU/mL (0.358-3.740) Random Vancomycin Level 7.7 ug/mL Rapid Plasma Reagin Pending Microbiology Date/Time Source Procedure Growth Status 12/02/19 19:00 Blood Blood Culture - Preliminary NO GROWTH AFTER 24 HOURS Resulted 12/02/19 18:45 Blood Blood Culture - Preliminary NO GROWTH AFTER 24 HOURS Resulted 12/02/19 18:23 Nasopharynx SARS-CoV-2 RdRp Gene Assay - Final Complete 12/02/19 19:00 Urine,Clean Catch Urine Culture - Preliminary Gram Negative Bacillus 1 Resulted Intake and Output 12/03/19 12/04/19 19:00 07:00 Intake Total 91.67 ml 605 ml Output Total 400 ml 1200 ml Balance -308.33 ml -595 ml Intake IV Total 91.67 ml 605 ml Output Urine Total 400 ml 1200 ml # Bowel Movements 1 Objective GENERAL: open eyes more responsive, cachectic, chronic ill appearing. HEENT: Pupils equal and reactive to light, anicteric. anicteric, NG tube. NECK: Supple. No JVD. LUNGS: Fair bilateral air entry. No wheezing, rhonchi. Decreased air in the bases. HEART: S1, S2. Distant heart sounds. No murmur or gallop. ABDOMEN: Soft, nondistended, nontender. No rebound tenderness. No fluid shift. EXTREMITIES: No cyanosis, clubbing, or edema. Muscle atrophy to bilateral lower extremities noted. NEUROLOGIC: Cranial nerves II to XII are limited secondary to the patient's status. However, the patient is moving the eyes. Noted the right side is weaker than left side. RECTAL/GENITOURINARY: Refused and deferred PSYCHIATRIC: Mood and affect unable to obtain secondary to the patient's status. Assessment/Plan Assessment/Plan ASSESSMENT: 1. Acute encephalopathy, most likely secondary to toxic metabolic encephalopathy as well as acute CVA. 2. Acute urinary tract infection. 3. Diabetes type 2. 4. Acute kidney injury, on chronic renal insufficiency. 5. Multifocal infarction, confirmed on MRI. 6. Hypertension. 7. Dyslipidemia. 8. Colon cancer, status post resection. 9. Alzheimer dementia. 10. History of fall with subdural hematoma, resolved. 11. The patient has severe protein-calorie malnutrition. PLAN: Transfer out of [facility] to telemetry. Follow up with laboratory and culture. Start the patient on broad-spectrum antibiotics with vancomycin and meropenem ID consultation, Dr. Lopez, pulmonary consultation, Dr. Vera, Cardiology consultation with Dr. Beka Saleh, Nephrology consultation with Dr. Vin Otero. Code status: Full code. DVT prophylaxis is with heparin subcu. Darren Spencer MD Dec 04, 2019 23:00
[2019-12-05] VITALS: BP 150/81
[2019-12-05] MEDS: Meropenem 500 MG in NS 55 ML IVPB SCH ×2 (03:09→14:28)
[2019-12-05 04:00] VITALS: BP 110/42
[2019-12-05 06:02] LABS: BASOPHILS % (AUTO) 0.7 % (0.0-2.0); HEMATOCRIT 34.5 % (42.0-52.0); HEMOGLOBIN 10.7 G/DL (14.2-18.0); MEAN CORPUSCULAR VOLUME 87 FL (80-99); MONOCYTES % (AUTO) 10.4 % (1.0-10.0); NEUTROPHILS % (AUTO) 78.9 % (45.0-75.0); PLATELET COUNT 315 K/UL (150-450); RED BLOOD COUNT 3.96 M/UL (4.70-6.10); RED CELL DISTRIBUTION WIDTH 13.8 % (11.6-14.8); WHITE BLOOD COUNT 7.6 K/UL (4.8-10.8)
[2019-12-05 06:16] LABS: ANION GAP 11 mmol/L (5-15); BLOOD UREA NITROGEN 40 mg/dL (7-18); CARBON DIOXIDE 25 MMOL/L (21-32); CHLORIDE 111 MMOL/L (98-107); CREATININE 1.4 MG/DL (0.55-1.30); POTASSIUM 3.8 MMOL/L (3.5-5.1); SODIUM 147 MMOL/L (136-145)
[2019-12-05] MEDS: NovoLOG Insulin Flexpen SUBQ SCH ×4 (06:20→21:21)
--- NOTE | 2019-12-05 07:17 | NUR ---
NURSE HAND-OFF REPORT: Important Events on Shift:[NA] Patient Status: [NA] Diet: [Glucerna 1.2 @30 cc/hr NG tube] Pending Orders: [NA] Pending Results/Labs:[NA] Pending MD notification:[NA] Latest Vital Signs: Temperature 97.3 , Pulse 76 , B/P 110 /42 , Respiratory Rate 19 , O2 SAT 98 , Room Air, O2 Flow Rate . Vital Sign Comment: [NA] EKG Rhythm: Sinus Rhythm w/ BBB Rhythm change?: N MD Notified?: N - MD Response: Latest Zhang Fall Score: 50 Fall Risk: High Risk Safety Measures: Call light Within Reach, Bed Alarm Zone 2, Side Rails Side Rails x3, Bed position Low and Locked. Fall Precautions: Yellow Socks Yellow Gown Report given to [ELLI Sanchez].
--- NOTE | 2019-12-05 07:30 | NUR ---
NURSE NOTES: Received pt from Erica CALLOWAY, Pt is sleeping, pt is in RA, no SOB or acute respiratory distress noted. pt is on continues heart monitoring. pt has ng tube in place is working well. pt has intact iv access RFA 22g is running well. pt has Vela cath in place is working well. Dr Lopez is aware about ESBL Urin, no new order to RN. Dr Otero is aware about NA 147, he will F/U.All needs attended, bed is locked and is in the lowest position, call light within easy reach. will continue to monitor.
[2019-12-05 08:00] VITALS: BP 125/55
[2019-12-05] MEDS ORDERED: Vancomycin 750mg/NS 275ml IVPB ONE ×2 (09:00)
[2019-12-05] MEDS: Eliquis 2.5mg tablet ORAL SCH ×2 (09:07→17:31)
[2019-12-05] MEDS: D5 1/2NS 1,000 ML IV SCH (09:10)
[2019-12-05] MEDS ORDERED: Tubing IV Secondary IV ONE (09:44)
[2019-12-05] MEDS ORDERED: D5 1/2NS 1000ml IV ONE (09:44)
--- NOTE | 2019-12-05 10:58 | NUR ---
NURSE NOTES: Dr Otero visited pt and is aware about NA 147, He will F/U, no new order to RN. Will continue to monitor.
--- NOTE | 2019-12-05 11:40 | Infectious Diseases Prog Note ---
Assessment/Plan Assessment: COVID19 neg x1 (12/01 rapid COVID PCR neg) UTI -u/a wbc tnct, nit neg, leuk +3; ucx >100k ESBL K. pna Afebrile Leukocytosis; SP -Bcx NTD Probable PNA -12/01 CXR: Obscured left hemidiaphragm, could indicate pleural fluid and/ orparenchymal consolidation/atelectasis. Correlate with clinical findings Acute encephalopathy/facial droop- Multifocal infarcts -12/01 Brain MRI wo: Multifocal infarcts the largest of which are located within the norberto left of midline as well as the left frontal lobe medially. Multifocal lacunar infarcts are noted scattered bilaterally including the cerebellar hemispheres and the left cerebellar peduncle. Age-related changes. CT head wo: Age-related atrophy and small vessel disease of aging, similar to that noted on the previous study. No acute intracranial pathology. If there is concern for etiology such as early acute lacunar infarcts, magnetic resonance imaging of the brain with diffusion-weighted sequences should be performed for follow-up FRANKY on CKD, worsened, now improvnig -REnal US: Small kidneys bilaterally. No evidence of hydronephrosis. Empty bladder with a Vela catheter. Incidental finding left renal cyst. Dm2 HTN HLD colon CA sp treatment Alzheimer's dementia fall w/ resultant [facility] resident ([facility]) Plan: -Continue empiric IV Vancomycin #3 -repaet CXR if no evidence of PNA- will dc -Meropenem #3/7 for ESBL UTI -12/02 Sp Aztreonam #1 -12/01 SP Ceftriaxone x1 -f/u cx -Monitor CBC/CMP, temperatures -aspiration precautions Thank you for this consultation. Will continue to follow along with you. Discussed with RN. Subjective Allergies: Coded Allergies: ATENOLOL (Verified Allergy, Unknown, 05/23/16) LOSARTAN (Verified Allergy, Unknown, 05/23/16) SIMVASTATIN (Verified Allergy, Unknown, 05/23/16) Uncoded Allergies: AMLIODIPINE (Allergy, Unknown, 05/23/16) PENICILLIN (Allergy, Unknown, 12/03/19) Tolerated Ceftriaxone on 12/02/19 afebrile no leukocytosis Bcx N TD Cr improving Objective Last 24 Hour Vital Signs Date Time Temp Pulse Resp B/P (MAP) Pulse Ox O2 Delivery O2 Flow Rate FiO2 12/05/19 09:00 Room Air 12/05/19 08:00 97.7 67 16 125/55 (78) 97 12/05/19 07:40 58 12/05/19 04:00 77 12/05/19 04:00 97.3 76 19 110/42 (64) 98 12/05/19 00:00 72 12/05/19 00:00 96.8 76 21 150/81 (104) 97 12/04/19 20:00 77 12/04/19 20:00 95.9 75 20 143/56 (85) 98 12/04/19 16:00 97.6 79 19 100/71 (81) 97 12/04/19 15:25 67 12/04/19 15:25 67 12/04/19 11:58 79 12/04/19 11:48 96.7 60 20 107/69 (82) 98 Height (Feet): 5 Height (Inches): 6.00 Weight (Pounds): 86 General Appearance: no apparent distress Cardiovascular: normal rate Respiratory/Chest: lungs clear - ant Abdomen: normal bowel sounds, non tender, soft Extremities: no swelling Microbiology Date/Time Source Procedure Growth Status 12/02/19 19:00 Blood Blood Culture - Preliminary NO GROWTH AFTER 48 HOURS Resulted 12/02/19 18:45 Blood Blood Culture - Preliminary NO GROWTH AFTER 48 HOURS Resulted 12/02/19 18:23 Nasopharynx SARS-CoV-2 RdRp Gene Assay - Final Complete 12/02/19 19:00 Urine,Clean Catch Urine Culture - Preliminary Klebsiella Pneumoniae Esbl Resulted Laboratory Tests Test 12/05/19 05:25 White Blood Count 7.6 K/UL (4.8-10.8) Red Blood Count 3.96 M/UL (4.70-6.10) L Hemoglobin 10.7 G/DL (14.2-18.0) L Hematocrit 34.5 % (42.0-52.0) L Mean Corpuscular Volume 87 FL (80-99) Mean Corpuscular Hemoglobin 27.0 PG (27.0-31.0) Mean Corpuscular Hemoglobin Concent 31.1 G/DL (32.0-36.0) L Red Cell Distribution Width 13.8 % (11.6-14.8) Platelet Count 315 K/UL (150-450) Mean Platelet Volume 5.3 FL (6.5-10.1) L Neutrophils (%) (Auto) 78.9 % (45.0-75.0) H Lymphocytes (%) (Auto) 9.0 % (20.0-45.0) L Monocytes (%) (Auto) 10.4 % (1.0-10.0) H Eosinophils (%) (Auto) 1.0 % (0.0-3.0) Basophils (%) (Auto) 0.7 % (0.0-2.0) Sodium Level 147 MMOL/L (136-145) H Potassium Level 3.8 MMOL/L (3.5-5.1) Chloride Level 111 MMOL/L (98-107) H Carbon Dioxide Level 25 MMOL/L (21-32) Anion Gap 11 mmol/L (5-15) Blood Urea Nitrogen 40 mg/dL (7-18) H Creatinine 1.4 MG/DL (0.55-1.30) H Estimat Glomerular Filtration Rate 47.8 mL/min (>60) Glucose Level 171 MG/DL (74-106) H Hemoglobin A1c 8.1 % (4.3-6.0) H Calcium Level 9.0 MG/DL (8.5-10.1) C-Reactive Protein, Quantitative 4.7 mg/dL (0.00-0.90) H Random Vancomycin Level 12.3 ug/mL Current Medications Medications (Trade) Dose Ordered Sig/James Route PRN Reason Start Time Stop Time Status Last Admin Dose Admin Acetaminophen (Tylenol) 650 mg Q4H PRN ORAL fever 12/03/19 18:48 01/02/20 18:47 Albuterol/ Ipratropium (Albuterol/ Ipratropium) 3 ml Q4H PRN HHN Shortness of Breath 12/03/19 19:15 12/07/19 19:14 Apixaban (Eliquis) 2.5 mg BID ORAL 12/05/19 09:00 03/04/20 08:59 12/05/19 09:07 Clonidine HCl (Catapres Tab) 0.1 mg Q4H PRN ORAL For High Blood Pressure 12/03/19 19:15 03/01/20 19:14 Dextrose (Dextrose 50%) 25 ml Q30M PRN IV Hypoglycemia 12/03/19 18:45 03/01/20 19:14 Dextrose (Dextrose 50%) 50 ml Q30M PRN IV Hypoglycemia 12/03/19 18:45 03/01/20 19:14 Dextrose/Sodium Chloride 1,000 ml @ 50 mls/hr Q20H IV 12/03/19 18:48 01/02/20 18:47 12/05/19 09:10 Escitalopram Oxalate (Lexapro) 10 mg DAILY ORAL 12/04/19 09:00 01/02/20 08:59 12/05/19 09:07 Folic Acid (Folate) 2 mg DAILY NG 12/05/19 09:00 01/04/20 08:59 12/05/19 09:07 Insulin Aspart (NovoLOG) BEFORE MEALS AND HS SUBQ 12/03/19 21:00 03/01/20 20:59 12/05/19 06:20 Meropenem 500 mg/ Sodium Chloride 55 ml @ 110 mls/hr Q12HR@0300,1500 IVPB 12/04/19 03:00 12/08/19 14:59 12/05/19 03:09 Nitroglycerin (Ntg) 0.4 mg Q5M X 3 DOSES PRN SL Prn Chest Pain 12/03/19 18:45 01/01/20 19:14 Ondansetron HCl (Zofran) 4 mg Q6H PRN IVP Nausea & Vomiting 12/03/19 19:15 01/01/20 19:14 Polyethylene Glycol (Miralax) 17 gm HSPRN PRN ORAL Constipation 12/03/19 18:49 01/02/20 18:48 Promethazine HCl/ Codeine (Phenergan with Codeine) 5 ml Q4H PRN ORAL For Cough 12/03/19 19:15 01/01/20 19:14 Temazepam (Restoril) 15 mg HSPRN PRN ORAL Insomnia 12/03/19 19:15 12/09/19 19:14 Vancomycin HCl ([facility] pharmacy to dose) 1 ea DAILY PRN MISC Per rx protocol 12/04/19 09:00 01/02/20 11:59 Velma Lopez M.D. Dec 05, 2019 11:40
--- NOTE | 2019-12-05 11:46 | General Progress Note ---
Assessment/Plan Assessment/Plan: anemia AMS dysphgaia DM h/o colon ca RI increase NGTF to 5 may need PEG next week anemia work up fu labs Subjective ROS Limited/Unobtainable: No Allergies: Coded Allergies: ATENOLOL (Verified Allergy, Unknown, 05/23/16) LOSARTAN (Verified Allergy, Unknown, 05/23/16) SIMVASTATIN (Verified Allergy, Unknown, 05/23/16) Uncoded Allergies: AMLIODIPINE (Allergy, Unknown, 05/23/16) PENICILLIN (Allergy, Unknown, 12/03/19) Tolerated Ceftriaxone on 12/02/19 Objective Last 24 Hour Vital Signs Date Time Temp Pulse Resp B/P (MAP) Pulse Ox O2 Delivery O2 Flow Rate FiO2 12/05/19 09:00 Room Air 12/05/19 08:00 97.7 67 16 125/55 (78) 97 12/05/19 07:40 58 12/05/19 04:00 77 12/05/19 04:00 97.3 76 19 110/42 (64) 98 12/05/19 00:00 72 12/05/19 00:00 96.8 76 21 150/81 (104) 97 12/04/19 20:00 77 12/04/19 20:00 95.9 75 20 143/56 (85) 98 12/04/19 16:00 97.6 79 19 100/71 (81) 97 12/04/19 15:25 67 12/04/19 15:25 67 12/04/19 11:58 79 12/04/19 11:48 96.7 60 20 107/69 (82) 98 Intake and Output 12/04/19 12/05/19 19:00 07:00 Intake Total 381.6 ml 475 ml Output Total 500 ml 630 ml Balance -118.4 ml -155 ml Intake Free Water 50 ml IV Total 381.6 ml 400 ml Tube Feeding 25 ml Output Urine Total 500 ml 630 ml # Bowel Movements 1 Laboratory Tests 12/05/19 05:25: White Blood Count 7.6, Red Blood Count 3.96L, Hemoglobin 10.7L, Hematocrit 34.5L , Mean Corpuscular Volume 87, Mean Corpuscular Hemoglobin 27.0, Mean Corpuscular Hemoglobin Concent 31.1L, Red Cell Distribution Width 13.8, Platelet Count 315, Mean Platelet Volume 5.3L, Neutrophils (%) (Auto) 78.9H, Lymphocytes (%) (Auto) 9.0L, Monocytes (%) (Auto) 10.4H, Eosinophils (%) (Auto) 1.0, Basophils (%) (Auto) 0.7, Sodium Level 147H, Potassium Level 3.8, Chloride Level 111H, Carbon Dioxide Level 25, Anion Gap 11, Blood Urea Nitrogen 40H, Creatinine 1.4H, Estimat Glomerular Filtration Rate 47.8, Glucose Level 171H, Hemoglobin A1c 8.1H, Calcium Level 9.0, C-Reactive Protein, Quantitative 4.7H, Random Vancomycin Level 12.3 Height (Feet): 5 Height (Inches): 6.00 Weight (Pounds): 86 General Appearance: no apparent distress EENT: normal ENT inspection Neck: supple Cardiovascular: normal rate Respiratory/Chest: decreased breath sounds Abdomen: normal bowel sounds, non tender, soft Extremities: non-tender Mamadou Johnson MD Dec 05, 2019 11:46
--- NOTE | 2019-12-05 11:58 | Nephrology Progress Note ---
Assessment/Plan Problem List: (1) FRANKY (acute kidney injury) (2) Anemia (3) Severe protein-calorie malnutrition (4) Alzheimer's dementia (5) UTI (urinary tract infection) (6) Acute dehydration Assessment Acute on chronic renal failure. Previous admission patient was discharged on serum creatinine of 1.6. Severe malnutrition. Encephalopathy toxic metabolic. Evidence of UTI. Multi-infarct brain disease. Diabetes mellitus Hypertension History of colon cancer [facility] Full code Plan December 04: Serum creatinine improving. IV fluid changed to D5W 30 cc an hour. Feeding through NG tube is in process. Continue to monitor electrolytes and renal parameters. December 03: Late note entry due to system problem at the [facility] [place] today. Serum creatinine improving. Folic acid supplement given. Continue to monitor renal parameters Slow hydrate Monitor renal parameters urine output Antibiotics Avoid nephrotoxic's Per consultants Improve nutritional status as possible Subjective ROS Limited/Unobtainable: No Constitutional: Reports: malaise, weakness Objective Objective Last 24 Hour Vital Signs Date Time Temp Pulse Resp B/P (MAP) Pulse Ox O2 Delivery O2 Flow Rate FiO2 12/05/19 09:00 Room Air 12/05/19 08:00 97.7 67 16 125/55 (78) 97 12/05/19 07:40 58 12/05/19 04:00 77 12/05/19 04:00 97.3 76 19 110/42 (64) 98 12/05/19 00:00 72 12/05/19 00:00 96.8 76 21 150/81 (104) 97 12/04/19 20:00 77 12/04/19 20:00 95.9 75 20 143/56 (85) 98 12/04/19 16:00 97.6 79 19 100/71 (81) 97 12/04/19 15:25 67 12/04/19 15:25 67 Intake and Output 12/04/19 12/05/19 19:00 07:00 Intake Total 381.6 ml 475 ml Output Total 500 ml 630 ml Balance -118.4 ml -155 ml Intake Free Water 50 ml IV Total 381.6 ml 400 ml Tube Feeding 25 ml Output Urine Total 500 ml 630 ml # Bowel Movements 1 Laboratory Tests 12/05/19 05:25: White Blood Count 7.6, Red Blood Count 3.96L, Hemoglobin 10.7L, Hematocrit 34.5L , Mean Corpuscular Volume 87, Mean Corpuscular Hemoglobin 27.0, Mean Corpuscular Hemoglobin Concent 31.1L, Red Cell Distribution Width 13.8, Platelet Count 315, Mean Platelet Volume 5.3L, Neutrophils (%) (Auto) 78.9H, Lymphocytes (%) (Auto) 9.0L, Monocytes (%) (Auto) 10.4H, Eosinophils (%) (Auto) 1.0, Basophils (%) (Auto) 0.7, Sodium Level 147H, Potassium Level 3.8, Chloride Level 111H, Carbon Dioxide Level 25, Anion Gap 11, Blood Urea Nitrogen 40H, Creatinine 1.4H, Estimat Glomerular Filtration Rate 47.8, Glucose Level 171H, Hemoglobin A1c 8.1H, Calcium Level 9.0, C-Reactive Protein, Quantitative 4.7H, Random Vancomycin Level 12.3 Height (Feet): 5 Height (Inches): 6.00 Weight (Pounds): 86 General Appearance: no apparent distress EENT: other - NG tube Cardiovascular: normal rate Respiratory/Chest: decreased breath sounds Abdomen: soft Vin Otero MD Dec 05, 2019 11:58
[2019-12-05 12:00] VITALS: BP 127/57
--- NOTE | 2019-12-05 12:34 | Pulmonology Progress Note ---
Subjective ROS Limited/Unobtainable: No Constitutional: Reports: no symptoms HEENT: Repors: no symptoms Allergies: Coded Allergies: ATENOLOL (Verified Allergy, Unknown, 05/23/16) LOSARTAN (Verified Allergy, Unknown, 05/23/16) SIMVASTATIN (Verified Allergy, Unknown, 05/23/16) Uncoded Allergies: AMLIODIPINE (Allergy, Unknown, 05/23/16) PENICILLIN (Allergy, Unknown, 12/03/19) Tolerated Ceftriaxone on 12/02/19 Objective Last 24 Hour Vital Signs Date Time Temp Pulse Resp B/P (MAP) Pulse Ox O2 Delivery O2 Flow Rate FiO2 12/05/19 12:00 98.3 67 17 127/57 (80) 97 12/05/19 09:00 Room Air 12/05/19 08:00 97.7 67 16 125/55 (78) 97 12/05/19 07:40 58 12/05/19 04:00 77 12/05/19 04:00 97.3 76 19 110/42 (64) 98 12/05/19 00:00 72 12/05/19 00:00 96.8 76 21 150/81 (104) 97 12/04/19 20:00 77 12/04/19 20:00 95.9 75 20 143/56 (85) 98 12/04/19 16:00 97.6 79 19 100/71 (81) 97 12/04/19 15:25 67 12/04/19 15:25 67 Intake and Output 12/04/19 12/05/19 19:00 07:00 Intake Total 381.6 ml 525 ml Output Total 500 ml 630 ml Balance -118.4 ml -105 ml Intake Free Water 50 ml IV Total 381.6 ml 450 ml Tube Feeding 25 ml Output Urine Total 500 ml 630 ml # Bowel Movements 1 General Appearance: cachetic HEENT: normocephalic, atraumatic Respiratory: chest wall non-tender, lungs clear Cardiovascular: normal peripheral pulses Abdomen: normal bowel sounds, soft, non tender Extremities: no cyanosis Skin: no ulcers Neurologic: no motor/sensory deficits Microbiology Date/Time Source Procedure Growth Status 12/02/19 19:00 Blood Blood Culture - Preliminary NO GROWTH AFTER 48 HOURS Resulted 12/02/19 18:45 Blood Blood Culture - Preliminary NO GROWTH AFTER 48 HOURS Resulted 12/02/19 18:23 Nasopharynx SARS-CoV-2 RdRp Gene Assay - Final Complete 12/02/19 19:00 Urine,Clean Catch Urine Culture - Preliminary Klebsiella Pneumoniae Esbl Resulted Laboratory Tests 12/05/19 05:25: White Blood Count 7.6, Red Blood Count 3.96L, Hemoglobin 10.7L, Hematocrit 34.5L , Mean Corpuscular Volume 87, Mean Corpuscular Hemoglobin 27.0, Mean Corpuscular Hemoglobin Concent 31.1L, Red Cell Distribution Width 13.8, Platelet Count 315, Mean Platelet Volume 5.3L, Neutrophils (%) (Auto) 78.9H, Lymphocytes (%) (Auto) 9.0L, Monocytes (%) (Auto) 10.4H, Eosinophils (%) (Auto) 1.0, Basophils (%) (Auto) 0.7, Sodium Level 147H, Potassium Level 3.8, Chloride Level 111H, Carbon Dioxide Level 25, Anion Gap 11, Blood Urea Nitrogen 40H, Creatinine 1.4H, Estimat Glomerular Filtration Rate 47.8, Glucose Level 171H, Hemoglobin A1c 8.1H, Calcium Level 9.0, C-Reactive Protein, Quantitative 4.7H, Random Vancomycin Level 12.3 Current Medications Medications (Trade) Dose Ordered Sig/James Route PRN Reason Start Time Stop Time Status Last Admin Dose Admin Acetaminophen (Tylenol) 650 mg Q4H PRN ORAL fever 12/03/19 18:48 01/02/20 18:47 Albuterol/ Ipratropium (Albuterol/ Ipratropium) 3 ml Q4H PRN HHN Shortness of Breath 12/03/19 19:15 12/07/19 19:14 Apixaban (Eliquis) 2.5 mg BID ORAL 12/05/19 09:00 03/04/20 08:59 12/05/19 09:07 Clonidine HCl (Catapres Tab) 0.1 mg Q4H PRN ORAL For High Blood Pressure 12/03/19 19:15 03/01/20 19:14 Dextrose (Dextrose 50%) 25 ml Q30M PRN IV Hypoglycemia 12/03/19 18:45 03/01/20 19:14 Dextrose (Dextrose 50%) 50 ml Q30M PRN IV Hypoglycemia 12/03/19 18:45 03/01/20 19:14 Dextrose/Sodium Chloride 1,000 ml @ 50 mls/hr Q20H IV 12/03/19 18:48 01/02/20 18:47 12/05/19 09:10 Escitalopram Oxalate (Lexapro) 10 mg DAILY ORAL 12/04/19 09:00 01/02/20 08:59 12/05/19 09:07 Folic Acid (Folate) 2 mg DAILY NG 12/05/19 09:00 01/04/20 08:59 12/05/19 09:07 Insulin Aspart (NovoLOG) BEFORE MEALS AND HS SUBQ 12/03/19 21:00 03/01/20 20:59 12/05/19 11:43 Meropenem 500 mg/ Sodium Chloride 55 ml @ 110 mls/hr Q12HR@0300,1500 IVPB 12/04/19 03:00 12/08/19 14:59 12/05/19 03:09 Nitroglycerin (Ntg) 0.4 mg Q5M X 3 DOSES PRN SL Prn Chest Pain 12/03/19 18:45 01/01/20 19:14 Ondansetron HCl (Zofran) 4 mg Q6H PRN IVP Nausea & Vomiting 12/03/19 19:15 01/01/20 19:14 Polyethylene Glycol (Miralax) 17 gm HSPRN PRN ORAL Constipation 12/03/19 18:49 01/02/20 18:48 Promethazine HCl/ Codeine (Phenergan with Codeine) 5 ml Q4H PRN ORAL For Cough 12/03/19 19:15 01/01/20 19:14 Temazepam (Restoril) 15 mg HSPRN PRN ORAL Insomnia 12/03/19 19:15 12/09/19 19:14 Vancomycin HCl (Vanco pharmacy to dose) 1 ea DAILY PRN MISC Per rx protocol 12/04/19 09:00 01/02/20 11:59 Assessment/Plan Problems: (1) Altered level of consciousness (2) UTI (urinary tract infection) (3) Severe protein-calorie malnutrition (4) History of diabetes mellitus (5) History of hypertension (6) Alzheimer's dementia (7) Unilateral weakness (8) Subdural hematoma (9) Colon cancer Assessment/Plan wbc lower Urine has GNB, MDR Klebsiella Abx as per ID f/u electrolytes swallow study swallow evaluation pending Neurology note appreciated Cherelle Vera MD Dec 05, 2019 12:34
--- NOTE | 2019-12-05 12:39 | Surgery Progress Note ---
Surgery Progress Note Subjective Additional Comments afebrile HD stable comfortable tolerating tf Objective Last 24 Hour Vital Signs Date Time Temp Pulse Resp B/P (MAP) Pulse Ox O2 Delivery O2 Flow Rate FiO2 12/05/19 12:00 98.3 67 17 127/57 (80) 97 12/05/19 09:00 Room Air 12/05/19 08:00 97.7 67 16 125/55 (78) 97 12/05/19 07:40 58 12/05/19 04:00 77 12/05/19 04:00 97.3 76 19 110/42 (64) 98 12/05/19 00:00 72 12/05/19 00:00 96.8 76 21 150/81 (104) 97 12/04/19 20:00 77 12/04/19 20:00 95.9 75 20 143/56 (85) 98 12/04/19 16:00 97.6 79 19 100/71 (81) 97 12/04/19 15:25 67 12/04/19 15:25 67 I&O Intake and Output 12/04/19 12/05/19 19:00 07:00 Intake Total 381.6 ml 525 ml Output Total 500 ml 630 ml Balance -118.4 ml -105 ml Intake Free Water 50 ml IV Total 381.6 ml 450 ml Tube Feeding 25 ml Output Urine Total 500 ml 630 ml # Bowel Movements 1 Dressing: other Wound: other Cardiovascular: RSR Respiratory: decreased breath sounds Abdomen: soft, non-tender, present bowel sounds Extremities: no tenderness, no cyanosis Laboratory Tests Test 12/05/19 05:25 White Blood Count 7.6 K/UL (4.8-10.8) Red Blood Count 3.96 M/UL (4.70-6.10) L Hemoglobin 10.7 G/DL (14.2-18.0) L Hematocrit 34.5 % (42.0-52.0) L Mean Corpuscular Volume 87 FL (80-99) Mean Corpuscular Hemoglobin 27.0 PG (27.0-31.0) Mean Corpuscular Hemoglobin Concent 31.1 G/DL (32.0-36.0) L Red Cell Distribution Width 13.8 % (11.6-14.8) Platelet Count 315 K/UL (150-450) Mean Platelet Volume 5.3 FL (6.5-10.1) L Neutrophils (%) (Auto) 78.9 % (45.0-75.0) H Lymphocytes (%) (Auto) 9.0 % (20.0-45.0) L Monocytes (%) (Auto) 10.4 % (1.0-10.0) H Eosinophils (%) (Auto) 1.0 % (0.0-3.0) Basophils (%) (Auto) 0.7 % (0.0-2.0) Sodium Level 147 MMOL/L (136-145) H Potassium Level 3.8 MMOL/L (3.5-5.1) Chloride Level 111 MMOL/L (98-107) H Carbon Dioxide Level 25 MMOL/L (21-32) Anion Gap 11 mmol/L (5-15) Blood Urea Nitrogen 40 mg/dL (7-18) H Creatinine 1.4 MG/DL (0.55-1.30) H Estimat Glomerular Filtration Rate 47.8 mL/min (>60) Glucose Level 171 MG/DL (74-106) H Hemoglobin A1c 8.1 % (4.3-6.0) H Calcium Level 9.0 MG/DL (8.5-10.1) C-Reactive Protein, Quantitative 4.7 mg/dL (0.00-0.90) H Random Vancomycin Level 12.3 ug/mL Plan Problems: (1) History of diabetes mellitus (2) History of hypertension (3) Alzheimer's dementia (4) UTI (urinary tract infection) (5) Unilateral weakness (6) Acute dehydration (7) Altered level of consciousness (8) Subdural hematoma (9) Colon cancer (10) Severe protein-calorie malnutrition Assessment & Plan: DAILY ESTIMATED NEEDS: Needs based on Underweight, wasting, wound 40kg 30-35 kcals/kg 1969-9288 total kcals 1.25-2 g protein/kg 50-80 g total protein 25-30ml/kcal mL/kg [id number] total fluid mLs NUTRITION DIAGNOSIS: Increased kcal and pro needs r/t underweight status as evidenced by low BMI, moderate to severe generalized wasting, w/ multiple areas of skin compromise, DTI x4. CURRENT DIET: NPO ENTERAL NUTRITION RECOMMENDATIONS: Glucerna 1.2 goal of 45ml/hr x24 hrs to provide 1080ml, 1296 kcal, 65g pro, 869ml free h2O - Obtain GI access, initiate Glucerna 1.2 @25ml/hr for 6 hrs - Advance as tolerated 10ml/hr q4-6 hrs to goal - Flush per MD/ HOB over 30 degrees ------ ADDITIONAL RECOMMENDATIONS: 1) W/ poor po intake, add Ensure TID -> not appropriate for oral po W/ elevated BG rec Glucerna TID-> not appropriate for oral po 2) Add FRANCISCA BID -> f/up w WC eval 3) PARKER eval for texture, need for non oral feeds-> S/p PARKER eval, not appropriate for oral diet, TF recs as above 4) Calibrated bed scale wts daily 5) Monitor lytes w/ TF, replete as needed ACUTE: ALOC x2 days with right side paralysis, CVA, intracranial bleed, seizure , postictal state, major electrolyte abnormality, severe sepsis, Acute dehydration. H/O: subdural hematoma, colon cancer status post treatment, HTN, Syncope and collapse, anemia, DM2, Alzheimer Dementia, CKD, severe protein-calorie malnutrition, hyperlipidemia, vitamin B12 deficiency, muscle wasting, lack of coordination. POLST: Not in chart. RELEVANT MEDS: Albuterol (SOB); Zofran (Nausea); Restoril (insomnia). VITALS ON 2L NASAL CANNULA: HR: 67; RR: 19; SP02 100% PLOF: Pt consumed mechanical soft with thin liquids [facility] at [facility]. Pt seen at bedside appears frail and weak. Pt able to open eye to verbal communication. Pt noted with copious, thick phlegm and debris in BOT and throughout oral cavity. Pt provided oral moisturizer and thorough oral care with Yankauer suction, removing thick phlegm, mildly improved verbal communication s/p oral care. Pt able to nod head yes when asked if Pt gets thickened liquids. 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 Pt given PO trial of nectar thick liquid teaspoons. Oral phase characterized by functional labial seal, poor bolus control resulting in suspected premature posterior spillage and subsequent suspected silent aspiration given laryngeal elevation was not well appreciated upon palpation despite verbal and tactile cues to Pt's larynx to initiate swallow; no swallow initiated. Pt did not cough or attempt to clear trial. Pt was able to eventually initiate a swallow with a 20 second delay, laryngeal elevation incomplete in feel upon palpation. Pt is a high risk for silent aspiration, would benefit from MBSS in future ( will monitor Pt's candidacy, not appropriate to participate in MBSS at this time ). RECOMMENDATIONS: 1. NPO with nutrition, hydration, and meds via NGT (12 Yoruba). 2. Please provide oral care BID 3. Dysphagia therapy 3-5x per week x1 week. 4. Will monitor Pts appropriateness to participate in MBSS. 5. Pt would benefit from Speech, Language, and Cognitive communication evaluation given s/p lacunar infarcts. (11) Decubitus skin ulcer Assessment & Plan: Pt presented on admission with multiple Pressure injuries. Reabsorbing DTPI L Elbow. Base of Pressure Injury is dry and black centrally with maroon borders(L)2cm x (W)1.5cm. DTPI Sacrum (L)9.5cm x (W)11.5cm. Base of Pressure Injury is indurated purpuric with surrounding maroon borders. Pt verbalized tenderness when affected site minimally palpated. DTPI R Ischium(L)8cm x (W)9.5cm. Base of pressure injury is purpuric with maroon borders. Tender when minimally palpated. DTPI L trochanter(L)4cm x (W)3.2cm. Base of injury is purpuric with surrounding Maroon borders. Tender when minimally palpated. DTPI L Ischium (L)7cm x (W)5.4cm.Base of Injury is black with marginal erythema . Tender when minimally palpated. R Heel is boggy with non-blanchable erythema (L)3cm x (W)3.5cm. L Heel is boggy with non-Blanchable erythema(L)5cm x (W)3.5cm. L 1st metatarsal erythematous,tip is fluctuant. Pt complained tender when minimally palpated. No elevation in skin temp noted. Dry scab noted to dorsal L 2nd metatarsal. Tx.Plan: Apply Moisture Barrier Paste to Sacrum and bilat ischial tuberosities. Cover each site with Optifoam drsgs. Change every 3 days and prn. Apply Cavilon Skin Barrier to R and L trochanter. Cover each site with Optifoam drsgs. Change every 7 days and prn Apply Cavilon Skin Barrier to L and R elbows. Cover each site with Optifoam drsgs. Change every 7 days and prn. Apply Cavilon Skin Barrier to both heels and Malleoli. Cover each site with Optifoam drsgs. Change every 7 days and prn. Apply Cavilon Skin Barrier to bony prominences and cover with Optifoam drsgs as needed. Reposition at least every 2hours or as tolerated. Off-load heels with pillow. APM/KARTHIK Mattress overlay. Patel Merrill Dec 05, 2019 12:39
--- NOTE | 2019-12-05 14:14 | NUR ---
NURSE NOTES: when RN backed from lunch and assessed pt, ng tube was out on the floor, RN inserted and new ng tube, waiting for XR, will continue to monitor.
[2019-12-05 16:00] VITALS: BP 150/76
--- NOTE | 2019-12-05 16:06 | NUR ---
NURSE NOTES: wound treatment done as order and pt tolerated well. will continue to monitor.
--- NOTE | 2019-12-05 16:13 | NUR ---
NURSE NOTES: I got abd x ray result from radiology that ng tube is in place, ng feeding is starting for pt. will continue to monitor.
--- NOTE | 2019-12-05 16:45 | Diagnostic Imaging Report ---
EXAM: XR Abdomen, 2 Views CLINICAL HISTORY: NG tube placement. TECHNIQUE: Frontal view of the abdomen/pelvis with upright view of the abdomen. COMPARISON: No previous studies. FINDINGS: Intraperitoneal space: No free air. Gastrointestinal tract: Unremarkable. No dilation. Bones/joints: Osteopenia. Tubes, lines and devices: On the first few the NG tube is coiled upon itself presumably within the distal esophagus with its tip out of view heading towards the upper chest. On the second view the NG tube is noted in place with its tip and side port well below the diaphragm in good position. Other findings: 2 views of the abdomen are provided. Cardiomediastinal silhouette unremarkable per IMPRESSION: 1. On the second AP projection, the NG tube is in good position. 2. Cardiomegaly. 3. Osteopenia.
--- NOTE | 2019-12-05 16:46 | Diagnostic Imaging Report ---
Indication: Post nasogastric tube placement Technique: Supine view of the upper abdomen Comparison: 12/04/2019 Findings: Nasogastric tube is coiled in the gastric fundus, position appearing satisfactory. The included lower thorax is unremarkable. The bowel gas pattern is unremarkable Impression: Satisfactory nasogastric tube position. Other findings as noted
--- NOTE | 2019-12-05 16:46 | Diagnostic Imaging Report ---
Indication: Cough Technique: One view of the chest Comparison: 12/02/2019 Findings: Lungs and pleural spaces are clear. The heart size is normal. The aorta is calcified. Mitral annular calcifications again noted. Left hemidiaphragm slightly better visualized Impression: No acute process
--- NOTE | 2019-12-05 17:46 | NUR ---
CASE MANAGEMENT: REVIEW 12/05/2019 SI:CEREBRAL INFARCTION VS: T 98.5 HR 70 RR 18 B/P 150/76 SATS 97% ON RA LABS: NA 147 CL 111 BUN 40 CR 1.4 GLU 171 CRP 4.7 IS:DEXTROSE IV @ 30 ML/HR ELIQUIS PO BID LEXAPRO PO QD INSULIN ASPART SUBQ AC/HS MEROPENEM IV Q12H TELE DCP: CV TERRACE PLAN OF CARE: increase NGTF to 5 may need PEG next week>> PENDING RESULTS OF [facility]
--- NOTE | 2019-12-05 18:19 | NUR ---
Cognitive linguistic evaluation completed. Pt seen sitting upright in bed. Pt demonstrated MOD-SEV cognitive linguistic impairment characterized by memory deficits, poor awareness and attention, delayed initiation and processing. Pt further demonstrated inability to complete problem solving task. Pt demonstrated possible mild receptive aphasia and expressive aphasia, but further evaluation necessary as pt stated he was unable to, but this may be influenced by cognition. Possible MOD Unilateral Upper Motor Neuron Dysarthria noted with multiple requests for pt to repeat himself throughout session. All areas of memory impaired, including mcc and biographical. Unable to state reason for admission, able to recall his first name only; Ox1. Recommend ST follows pt for 3x/week to address deficits.
--- NOTE | 2019-12-05 18:40 | Cardiology Progress Note ---
Assessment/Plan Assessment/Plan 1. 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 2. Altered mental status, probably secondary to above. 3. Renal insufficiency acute on chronic. 4. Urinary tract infection. 5. History of subdural hematoma post fall. 6. B12 deficiency. 7. Diabetes mellitus. 8. Anemia. 9. Iron deficiency. 10. 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 neuro recommended dapt urin cx + but blood cx neg getting ivf carotid less thn 50% stenosis tele sinus no afib or svt now has ngt on feeding soon ngt reeinserted xry of hip and knee dw/s onc at bedside he has advance directive which he will obtian copies , i will loosk in my offic records as well to have availabel Subjective Cardiovascular: Denies: chest pain, lightheadedness, palpitations Respiratory: Denies: shortness of breath Gastrointestinal/Abdominal: Denies: abdominal pain Genitourinary: Denies: burning Objective Last 24 Hour Vital Signs Date Time Temp Pulse Resp B/P (MAP) Pulse Ox O2 Delivery O2 Flow Rate FiO2 12/05/19 16:00 98.5 70 18 150/76 (100) 97 12/05/19 15:35 74 12/05/19 12:00 98.3 67 17 127/57 (80) 97 12/05/19 11:32 63 12/05/19 09:00 Room Air 12/05/19 08:00 97.7 67 16 125/55 (78) 97 12/05/19 07:40 58 12/05/19 04:00 77 12/05/19 04:00 97.3 76 19 110/42 (64) 98 12/05/19 00:00 72 12/05/19 00:00 96.8 76 21 150/81 (104) 97 12/04/19 20:00 77 12/04/19 20:00 95.9 75 20 143/56 (85) 98 General Appearance: no apparent distress, alert Neck: supple Cardiovascular: normal rate, regular rhythm Respiratory/Chest: lungs clear Abdomen: normal bowel sounds, non tender, soft Extremities: no swelling, other - rotated externallly Intake and Output 12/04/19 12/05/19 19:00 07:00 Intake Total 381.6 ml 525 ml Output Total 500 ml 630 ml Balance -118.4 ml -105 ml Intake Free Water 50 ml IV Total 381.6 ml 450 ml Tube Feeding 25 ml Output Urine Total 500 ml 630 ml # Bowel Movements 1 Laboratory Tests Test 12/05/19 05:25 White Blood Count 7.6 K/UL (4.8-10.8) Red Blood Count 3.96 M/UL (4.70-6.10) L Hemoglobin 10.7 G/DL (14.2-18.0) L Hematocrit 34.5 % (42.0-52.0) L Mean Corpuscular Volume 87 FL (80-99) Mean Corpuscular Hemoglobin 27.0 PG (27.0-31.0) Mean Corpuscular Hemoglobin Concent 31.1 G/DL (32.0-36.0) L Red Cell Distribution Width 13.8 % (11.6-14.8) Platelet Count 315 K/UL (150-450) Mean Platelet Volume 5.3 FL (6.5-10.1) L Neutrophils (%) (Auto) 78.9 % (45.0-75.0) H Lymphocytes (%) (Auto) 9.0 % (20.0-45.0) L Monocytes (%) (Auto) 10.4 % (1.0-10.0) H Eosinophils (%) (Auto) 1.0 % (0.0-3.0) Basophils (%) (Auto) 0.7 % (0.0-2.0) Sodium Level 147 MMOL/L (136-145) H Potassium Level 3.8 MMOL/L (3.5-5.1) Chloride Level 111 MMOL/L (98-107) H Carbon Dioxide Level 25 MMOL/L (21-32) Anion Gap 11 mmol/L (5-15) Blood Urea Nitrogen 40 mg/dL (7-18) H Creatinine 1.4 MG/DL (0.55-1.30) H Estimat Glomerular Filtration Rate 47.8 mL/min (>60) Glucose Level 171 MG/DL (74-106) H Hemoglobin A1c 8.1 % (4.3-6.0) H Calcium Level 9.0 MG/DL (8.5-10.1) C-Reactive Protein, Quantitative 4.7 mg/dL (0.00-0.90) H Random Vancomycin Level 12.3 ug/mL Microbiology Date/Time Source Procedure Growth Status 12/02/19 19:00 Blood Blood Culture - Preliminary NO GROWTH AFTER 48 HOURS Resulted 12/02/19 18:45 Blood Blood Culture - Preliminary NO GROWTH AFTER 48 HOURS Resulted 12/02/19 19:00 Urine,Clean Catch Urine Culture - Preliminary Klebsiella Pneumoniae Esbl Resulted Beka Saleh MD Dec 05, 2019 18:40
--- NOTE | 2019-12-05 19:35 | NUR ---
NURSE HAND-OFF REPORT: Important Events on Shift: Patient Status: Diet: Pending Orders: Pending Results/Labs: Pending MD notification: Latest Vital Signs: Temperature 98.5 , Pulse 70 , B/P 150 /76 , Respiratory Rate 18 , O2 SAT 97 , Room Air, O2 Flow Rate . Vital Sign Comment: EKG Rhythm: SR w/ BBB Rhythm change?: N MD Notified?: Y -Dr Delfino RUFFIN Response: Latest Zhang Fall Score: 50 Fall Risk: High Risk Safety Measures: Call light Within Reach, Bed Alarm Zone 2, Side Rails Side Rails x3, Bed position Low and Locked. Fall Precautions: Yellow Socks Yellow Gown Report given to . Pt is awake and stable, no stress noted. tube feeding is running and pt tolerated well. no residual noted. endorsed plan of care, Endorsed to F/U for OB.
[2019-12-05 20:00] VITALS: BP 133/61
--- NOTE | 2019-12-05 20:10 | NUR ---
NURSE NOTES: Received patient report from ELLI Sanchez. Patient shows no signs of distress or pain. Patient is AO x1. He is on NG tube running Glucerna 1.2 @45 cc/hr, goal is 55cc/hr. Patient tolerated well, there is no residual noted. IV is intact and patent. There are no signs of erythema, infiltration, or bleeding. Patient running D5 W running at 30cc/hr. Bed is in the lowest position, call light within reach, side rails up x3. Vela intact and draining. Will continue to monitor.
--- NOTE | 2019-12-05 22:23 | Internal Med Progress Note ---
Subjective Physician Name Darren Spencer Attending Physician Darren Spencer MD Current Medications Medications (Trade) Dose Ordered Sig/James Route PRN Reason Start Time Stop Time Status Last Admin Dose Admin Acetaminophen (Tylenol) 650 mg Q4H PRN ORAL fever 12/03/19 18:48 01/02/20 18:47 Albuterol/ Ipratropium (Albuterol/ Ipratropium) 3 ml Q4H PRN HHN Shortness of Breath 12/03/19 19:15 12/07/19 19:14 Apixaban (Eliquis) 2.5 mg BID ORAL 12/05/19 09:00 03/04/20 08:59 12/05/19 17:31 Clonidine HCl (Catapres Tab) 0.1 mg Q4H PRN ORAL For High Blood Pressure 12/03/19 19:15 03/01/20 19:14 Dextrose 1,000 ml @ 30 mls/hr Q24H IV 12/05/19 13:23 01/04/20 13:22 12/05/19 14:27 Dextrose (Dextrose 50%) 25 ml Q30M PRN IV Hypoglycemia 12/03/19 18:45 03/01/20 19:14 Dextrose (Dextrose 50%) 50 ml Q30M PRN IV Hypoglycemia 12/03/19 18:45 03/01/20 19:14 Escitalopram Oxalate (Lexapro) 10 mg DAILY ORAL 12/04/19 09:00 01/02/20 08:59 12/05/19 09:07 Folic Acid (Folate) 2 mg DAILY NG 12/05/19 09:00 01/04/20 08:59 12/05/19 09:07 Insulin Aspart (NovoLOG) BEFORE MEALS AND HS SUBQ 12/03/19 21:00 03/01/20 20:59 12/05/19 21:21 Meropenem 500 mg/ Sodium Chloride 55 ml @ 110 mls/hr Q12HR@0300,1500 IVPB 12/04/19 03:00 12/08/19 14:59 12/05/19 14:28 Nitroglycerin (Ntg) 0.4 mg Q5M X 3 DOSES PRN SL Prn Chest Pain 12/03/19 18:45 01/01/20 19:14 Ondansetron HCl (Zofran) 4 mg Q6H PRN IVP Nausea & Vomiting 12/03/19 19:15 01/01/20 19:14 Polyethylene Glycol (Miralax) 17 gm HSPRN PRN ORAL Constipation 12/03/19 18:49 01/02/20 18:48 Promethazine HCl/ Codeine (Phenergan with Codeine) 5 ml Q4H PRN ORAL For Cough 12/03/19 19:15 01/01/20 19:14 Temazepam (Restoril) 15 mg HSPRN PRN ORAL Insomnia 12/03/19 19:15 12/09/19 19:14 Vancomycin HCl ([facility] pharmacy to dose) 1 ea DAILY PRN MISC Per rx protocol 12/04/19 09:00 01/02/20 11:59 Allergies: Coded Allergies: ATENOLOL (Verified Allergy, Unknown, 05/23/16) LOSARTAN (Verified Allergy, Unknown, 05/23/16) SIMVASTATIN (Verified Allergy, Unknown, 05/23/16) Uncoded Allergies: AMLIODIPINE (Allergy, Unknown, 05/23/16) PENICILLIN (Allergy, Unknown, 12/03/19) Tolerated Ceftriaxone on 12/02/19 Objective Last Vital Signs Date Time Temp Pulse Resp B/P (MAP) Pulse Ox O2 Delivery O2 Flow Rate FiO2 12/05/19 16:00 98.5 70 18 150/76 (100) 97 12/05/19 09:00 Room Air Laboratory Tests Test 12/05/19 05:25 White Blood Count 7.6 K/UL (4.8-10.8) Red Blood Count 3.96 M/UL (4.70-6.10) L Hemoglobin 10.7 G/DL (14.2-18.0) L Hematocrit 34.5 % (42.0-52.0) L Mean Corpuscular Volume 87 FL (80-99) Mean Corpuscular Hemoglobin 27.0 PG (27.0-31.0) Mean Corpuscular Hemoglobin Concent 31.1 G/DL (32.0-36.0) L Red Cell Distribution Width 13.8 % (11.6-14.8) Platelet Count 315 K/UL (150-450) Mean Platelet Volume 5.3 FL (6.5-10.1) L Neutrophils (%) (Auto) 78.9 % (45.0-75.0) H Lymphocytes (%) (Auto) 9.0 % (20.0-45.0) L Monocytes (%) (Auto) 10.4 % (1.0-10.0) H Eosinophils (%) (Auto) 1.0 % (0.0-3.0) Basophils (%) (Auto) 0.7 % (0.0-2.0) Sodium Level 147 MMOL/L (136-145) H Potassium Level 3.8 MMOL/L (3.5-5.1) Chloride Level 111 MMOL/L (98-107) H Carbon Dioxide Level 25 MMOL/L (21-32) Anion Gap 11 mmol/L (5-15) Blood Urea Nitrogen 40 mg/dL (7-18) H Creatinine 1.4 MG/DL (0.55-1.30) H Estimat Glomerular Filtration Rate 47.8 mL/min (>60) Glucose Level 171 MG/DL (74-106) H Hemoglobin A1c 8.1 % (4.3-6.0) H Calcium Level 9.0 MG/DL (8.5-10.1) C-Reactive Protein, Quantitative 4.7 mg/dL (0.00-0.90) H Random Vancomycin Level 12.3 ug/mL Intake and Output 12/04/19 12/05/19 19:00 07:00 Intake Total 381.6 ml 525 ml Output Total 500 ml 630 ml Balance -118.4 ml -105 ml Intake Free Water 50 ml IV Total 381.6 ml 450 ml Tube Feeding 25 ml Output Urine Total 500 ml 630 ml # Bowel Movements 1 Darren Spencer MD Dec 05, 2019 22:23
--- NOTE | 2019-12-05 22:34 | Internal Med Progress Note ---
Subjective Physician Name Darren Spencer Attending Physician Darren Spencer MD Current Medications Medications (Trade) Dose Ordered Sig/James Route PRN Reason Start Time Stop Time Status Last Admin Dose Admin Acetaminophen (Tylenol) 650 mg Q4H PRN ORAL fever 12/03/19 18:48 01/02/20 18:47 Albuterol/ Ipratropium (Albuterol/ Ipratropium) 3 ml Q4H PRN HHN Shortness of Breath 12/03/19 19:15 12/07/19 19:14 Apixaban (Eliquis) 2.5 mg BID ORAL 12/05/19 09:00 03/04/20 08:59 12/05/19 17:31 Clonidine HCl (Catapres Tab) 0.1 mg Q4H PRN ORAL For High Blood Pressure 12/03/19 19:15 03/01/20 19:14 Dextrose 1,000 ml @ 30 mls/hr Q24H IV 12/05/19 13:23 01/04/20 13:22 12/05/19 14:27 Dextrose (Dextrose 50%) 25 ml Q30M PRN IV Hypoglycemia 12/03/19 18:45 03/01/20 19:14 Dextrose (Dextrose 50%) 50 ml Q30M PRN IV Hypoglycemia 12/03/19 18:45 03/01/20 19:14 Escitalopram Oxalate (Lexapro) 10 mg DAILY ORAL 12/04/19 09:00 01/02/20 08:59 12/05/19 09:07 Folic Acid (Folate) 2 mg DAILY NG 12/05/19 09:00 01/04/20 08:59 12/05/19 09:07 Insulin Aspart (NovoLOG) BEFORE MEALS AND HS SUBQ 12/03/19 21:00 03/01/20 20:59 12/05/19 21:21 Meropenem 500 mg/ Sodium Chloride 55 ml @ 110 mls/hr Q12HR@0300,1500 IVPB 12/04/19 03:00 12/08/19 14:59 12/05/19 14:28 Nitroglycerin (Ntg) 0.4 mg Q5M X 3 DOSES PRN SL Prn Chest Pain 12/03/19 18:45 01/01/20 19:14 Ondansetron HCl (Zofran) 4 mg Q6H PRN IVP Nausea & Vomiting 12/03/19 19:15 01/01/20 19:14 Polyethylene Glycol (Miralax) 17 gm HSPRN PRN ORAL Constipation 12/03/19 18:49 01/02/20 18:48 Promethazine HCl/ Codeine (Phenergan with Codeine) 5 ml Q4H PRN ORAL For Cough 12/03/19 19:15 01/01/20 19:14 Temazepam (Restoril) 15 mg HSPRN PRN ORAL Insomnia 12/03/19 19:15 12/09/19 19:14 Vancomycin HCl ([facility] pharmacy to dose) 1 ea DAILY PRN MISC Per rx protocol 12/04/19 09:00 01/02/20 11:59 Allergies: Coded Allergies: ATENOLOL (Verified Allergy, Unknown, 05/23/16) LOSARTAN (Verified Allergy, Unknown, 05/23/16) SIMVASTATIN (Verified Allergy, Unknown, 05/23/16) Uncoded Allergies: AMLIODIPINE (Allergy, Unknown, 05/23/16) PENICILLIN (Allergy, Unknown, 12/03/19) Tolerated Ceftriaxone on 12/02/19 Subjective Awake, more responsive, open eyes,WBC 7.6, renal function improving. restless, Pull out NG tube, Objective Last Vital Signs Date Time Temp Pulse Resp B/P (MAP) Pulse Ox O2 Delivery O2 Flow Rate FiO2 12/05/19 16:00 98.5 70 18 150/76 (100) 97 12/05/19 09:00 Room Air Laboratory Tests Test 12/05/19 05:25 White Blood Count 7.6 K/UL (4.8-10.8) Red Blood Count 3.96 M/UL (4.70-6.10) L Hemoglobin 10.7 G/DL (14.2-18.0) L Hematocrit 34.5 % (42.0-52.0) L Mean Corpuscular Volume 87 FL (80-99) Mean Corpuscular Hemoglobin 27.0 PG (27.0-31.0) Mean Corpuscular Hemoglobin Concent 31.1 G/DL (32.0-36.0) L Red Cell Distribution Width 13.8 % (11.6-14.8) Platelet Count 315 K/UL (150-450) Mean Platelet Volume 5.3 FL (6.5-10.1) L Neutrophils (%) (Auto) 78.9 % (45.0-75.0) H Lymphocytes (%) (Auto) 9.0 % (20.0-45.0) L Monocytes (%) (Auto) 10.4 % (1.0-10.0) H Eosinophils (%) (Auto) 1.0 % (0.0-3.0) Basophils (%) (Auto) 0.7 % (0.0-2.0) Sodium Level 147 MMOL/L (136-145) H Potassium Level 3.8 MMOL/L (3.5-5.1) Chloride Level 111 MMOL/L (98-107) H Carbon Dioxide Level 25 MMOL/L (21-32) Anion Gap 11 mmol/L (5-15) Blood Urea Nitrogen 40 mg/dL (7-18) H Creatinine 1.4 MG/DL (0.55-1.30) H Estimat Glomerular Filtration Rate 47.8 mL/min (>60) Glucose Level 171 MG/DL (74-106) H Hemoglobin A1c 8.1 % (4.3-6.0) H Calcium Level 9.0 MG/DL (8.5-10.1) C-Reactive Protein, Quantitative 4.7 mg/dL (0.00-0.90) H Random Vancomycin Level 12.3 ug/mL Intake and Output 12/04/19 12/05/19 19:00 07:00 Intake Total 381.6 ml 525 ml Output Total 500 ml 630 ml Balance -118.4 ml -105 ml Intake Free Water 50 ml IV Total 381.6 ml 450 ml Tube Feeding 25 ml Output Urine Total 500 ml 630 ml # Bowel Movements 1 Objective GENERAL: open eyes more responsive, cachectic, chronic ill appearing. HEENT: Pupils equal and reactive to light, anicteric. anicteric, NG tube. NECK: Supple. No JVD. LUNGS: Fair bilateral air entry. No wheezing, rhonchi. Decreased air in the bases. HEART: S1, S2. Distant heart sounds. No murmur or gallop. ABDOMEN: Soft, nondistended, nontender. No rebound tenderness. No fluid shift. EXTREMITIES: No cyanosis, clubbing, or edema. Muscle atrophy to bilateral lower extremities noted. NEUROLOGIC: Cranial nerves II to XII are limited secondary to the patient's status. However, the patient is moving the eyes. Noted the right side is weaker than left side. RECTAL/GENITOURINARY: Refused and deferred PSYCHIATRIC: Mood and affect unable to obtain secondary to the patient's status. Assessment/Plan Assessment/Plan ASSESSMENT: 1. Acute encephalopathy, most likely secondary to toxic metabolic encephalopathy as well as acute CVA. 2. Acute ESBL pseudomonas urinary tract infection. 3. Diabetes type 2. 4. Acute kidney injury, on chronic renal insufficiency. 5. Multifocal infarction, confirmed on MRI. 6. Hypertension. 7. Dyslipidemia. 8. Colon cancer, status post resection. 9. Alzheimer dementia. 10. History of fall with subdural hematoma, resolved. 11. The patient has severe protein-calorie malnutrition. PLAN: In telemetry. Follow up with laboratory and culture. Abx: Meropenem ID consultation, Dr. Lopez, pulmonary consultation, Dr. Vera, Cardiology consultation with Dr. Beka Saleh, Nephrology consultation with Dr. Vin Otero. Code status: Full code. DVT prophylaxis is with heparin subcu. Darren Spencer MD Dec 05, 2019 22:34
[2019-12-06] VITALS: BP 101/65
[2019-12-06] MEDS: Meropenem 500 MG in NS 55 ML IVPB SCH ×2 (03:27→15:46)
[2019-12-06 04:00] VITALS: BP 129/59
--- NOTE | 2019-12-06 05:22 | NUR ---
NURSE NOTES: Patient has not had a bowel movement. Unable to collect OB stool.
[2019-12-06] MEDS: NovoLOG Insulin Flexpen SUBQ SCH ×4 (05:55→21:00)
--- NOTE | 2019-12-06 07:01 | NUR ---
NURSE NOTES: Received Pt from ELLI Maldonado. Pt is AOx1, nonverbal/incomprehensible , stable and resting in bed semifowlers. Pt on RA with no complaints or S/S of distress at this time. L angle NGT running 1.2 Lucerna at 55cc, Pt tolerating well no residual. Pt has a hamlin 16Fr for retention draining well. Scaral DTI, Bilateral trochanter reddness, and B heel reddness. LFA running 30cc/hr, asymptomatic and intact. Restraints on bilateral wrists, pulse palatable, no swelling, and skin intact. pt bed low and locked, call light in reach and bed alarm on.
--- NOTE | 2019-12-06 07:20 | NUR ---
NURSE HAND-OFF REPORT: Important Events on Shift: Patient Status: FC stable Diet: Lucerna 1.2 55cc Pending Orders: Pending Results/Labs: Pending MD notification: Latest Vital Signs: Temperature 98.7 , Pulse 81 , B/P 128 /71 , Respiratory Rate 20 , O2 SAT 96 , Room Air, O2 Flow Rate . Vital Sign Comment: EKG Rhythm: SR w BBB Rhythm change?: N MD Notified?: Y -Dr Delfino RUFFIN Response: Latest Zhang Fall Score: 50 Fall Risk: High Risk Safety Measures: Call light Within Reach, Bed Alarm Zone 2, Side Rails Side Rails x3, Bed position Low and Locked. Fall Precautions: Yellow Socks Yellow Gown Report given to ELLI Butterfield.
--- NOTE | 2019-12-06 07:22 | NUR ---
RD ASSESSMENT & RECOMMENDATIONS SEE CARE ACTIVITY FOR COMPLETE ASSESSMENT DAILY ESTIMATED NEEDS: Needs based on Underweight, wasting, wound 40kg 30-35 kcals/kg 6472-7488 total kcals 1.25-2 g protein/kg 50-80 g total protein 25-30ml/kcal mL/kg 5316-9702 total fluid mLs NUTRITION DIAGNOSIS: Increased kcal and pro needs r/t underweight status as evidenced by low BMI, moderate to severe generalized wasting,admitted w/ multiple wounds, including DTI x 5, non-blanching erythema x2. CURRENT TF:Glucerna 1.2 @55ml/hr x24 hrs- exceeds 113% of est kcal needs PO DIET RECOMMENDATIONS: If safe for oral diet -> Liberalized Regular diet/ texture per [employer] NUTRITION RECOMMENDATIONS: Glucerna 1.2 @ 45ml/hr x24 hrs to provide 1080ml, 1296 kcal, 65g pro, 869ml free h2O - LOWER goal rate to 45ml/hr x 24 hrs not to exceed kcal needs : meets 100% est kcal/prot needs - H20 flush of 110mL q 8 hrs - HOB over 30 degrees ADDITIONAL RECOMMENDATIONS: 1) Calibrated bed scale wts daily 2) Wound healing: add Vit C 500mg QD + Harsha BID 3) Monitor lytes w/ TF, replete as needed 4) Monitor for readiness for oral diet vs PEG 5) Monitor BGs: consider DC D5 IVF, increase H20 flushes instead .
--- NOTE | 2019-12-06 07:27 | NUR ---
NURSE HAND-OFF REPORT: Important Events on Shift:[NA] Patient Status: [Full code] Diet: [Gluerna 1.2 @55 cc/hr] Pending Orders: [NA] Pending Results/Labs:[NA] Pending MD notification:[]NA Latest Vital Signs: Temperature 97.7 , Pulse 63 , B/P 129 /59 , Respiratory Rate 20 , O2 SAT 98 , Room Air, O2 Flow Rate . Vital Sign Comment: [NA] EKG Rhythm: SR w/ BBB Rhythm change?: N MD Notified?: Y -Dr Delfino RUFFIN Response: Latest Zhang Fall Score: 50 Fall Risk: High Risk Safety Measures: Call light Within Reach, Bed Alarm Zone 2, Side Rails Side Rails x3, Bed position Low and Locked. Fall Precautions: Yellow Socks Yellow Gown Report given to [ELLI Baxter].
--- NOTE | 2019-12-06 07:56 | General Progress Note ---
Assessment/Plan Assessment/Plan: anemia AMS dysphgaia DM h/o colon ca RI NGTF may need PEG next week anemia work up fu labs Subjective ROS Limited/Unobtainable: No Allergies: Coded Allergies: ATENOLOL (Verified Allergy, Unknown, 05/23/16) LOSARTAN (Verified Allergy, Unknown, 05/23/16) SIMVASTATIN (Verified Allergy, Unknown, 05/23/16) Uncoded Allergies: AMLIODIPINE (Allergy, Unknown, 05/23/16) PENICILLIN (Allergy, Unknown, 12/03/19) Tolerated Ceftriaxone on 12/02/19 Objective Last 24 Hour Vital Signs Date Time Temp Pulse Resp B/P (MAP) Pulse Ox O2 Delivery O2 Flow Rate FiO2 12/06/19 04:00 97.7 64 20 129/59 (82) 98 12/06/19 04:00 63 12/06/19 00:00 68 12/06/19 00:00 97.7 64 16 101/65 (77) 99 12/05/19 20:00 98.2 68 18 133/61 (85) 99 12/05/19 20:00 71 12/05/19 16:00 98.5 70 18 150/76 (100) 97 12/05/19 15:35 74 12/05/19 12:00 98.3 67 17 127/57 (80) 97 12/05/19 11:32 63 12/05/19 09:00 Room Air 12/05/19 08:00 97.7 67 16 125/55 (78) 97 Intake and Output 12/05/19 12/06/19 19:00 07:00 Intake Total 1025.000 ml 215 ml Output Total 400 ml 550 ml Balance 625.000 ml -335 ml Intake Free Water 50 ml 50 ml IV Total 830.000 ml 120 ml Tube Feeding 45 ml 45 ml Blood Product 100 ml Output Urine Total 400 ml 550 ml Height (Feet): 5 Height (Inches): 6.00 Weight (Pounds): 86 General Appearance: no apparent distress EENT: normal ENT inspection Neck: supple Cardiovascular: normal rate Respiratory/Chest: decreased breath sounds Abdomen: normal bowel sounds, non tender, soft Extremities: non-tender Mamadou Johnson MD Dec 06, 2019 07:56
[2019-12-06 08:00] VITALS: BP 125/56
--- NOTE | 2019-12-06 09:25 | Pulmonology Progress Note ---
Subjective ROS Limited/Unobtainable: No Constitutional: Reports: no symptoms HEENT: Repors: no symptoms Allergies: Coded Allergies: ATENOLOL (Verified Allergy, Unknown, 05/23/16) LOSARTAN (Verified Allergy, Unknown, 05/23/16) SIMVASTATIN (Verified Allergy, Unknown, 05/23/16) Uncoded Allergies: AMLIODIPINE (Allergy, Unknown, 05/23/16) PENICILLIN (Allergy, Unknown, 12/03/19) Tolerated Ceftriaxone on 12/02/19 Objective Last 24 Hour Vital Signs Date Time Temp Pulse Resp B/P (MAP) Pulse Ox O2 Delivery O2 Flow Rate FiO2 12/06/19 08:00 97.7 74 20 125/56 (79) 100 12/06/19 04:00 97.7 64 20 129/59 (82) 98 12/06/19 04:00 63 12/06/19 00:00 68 12/06/19 00:00 97.7 64 16 101/65 (77) 99 12/05/19 20:00 98.2 68 18 133/61 (85) 99 12/05/19 20:00 71 12/05/19 16:00 98.5 70 18 150/76 (100) 97 12/05/19 15:35 74 12/05/19 12:00 98.3 67 17 127/57 (80) 97 12/05/19 11:32 63 Intake and Output 12/05/19 12/06/19 19:00 07:00 Intake Total 1025.000 ml 215 ml Output Total 400 ml 550 ml Balance 625.000 ml -335 ml Intake Free Water 50 ml 50 ml IV Total 830.000 ml 120 ml Tube Feeding 45 ml 45 ml Blood Product 100 ml Output Urine Total 400 ml 550 ml General Appearance: cachetic HEENT: normocephalic, atraumatic Respiratory: chest wall non-tender, lungs clear Cardiovascular: normal peripheral pulses Abdomen: normal bowel sounds, soft, non tender Extremities: no cyanosis Skin: no ulcers Neurologic: no motor/sensory deficits Microbiology Date/Time Source Procedure Growth Status 12/03/19 19:00 Nasal Nares MRSA Culture - Final NO METHICILLIN RESISTANT STAPH AUREUS... Complete 12/03/19 19:00 Rectum VRE Culture - Final Enterococcus Faecalis - Vre Complete 12/03/19 19:00 Rectum - Final NO CARBAPENEM-RESISTANT ENTEROBACTERI... Complete Laboratory Tests 12/06/19 08:40: White Blood Count [Pending], Red Blood Count [Pending], Hemoglobin [Pending], Hematocrit [Pending], Mean Corpuscular Volume [Pending], Mean Corpuscular Hemoglobin [Pending], Mean Corpuscular Hemoglobin Concent [Pending], Red Cell Distribution Width [Pending], Platelet Count [Pending], Mean Platelet Volume [ Pending], Neutrophils (%) (Auto) [Pending], Lymphocytes (%) (Auto) [Pending], Monocytes (%) (Auto) [Pending], Eosinophils (%) (Auto) [Pending], Basophils (%) (Auto) [Pending], Sodium Level [Pending], Potassium Level [Pending], Chloride Level [Pending], Carbon Dioxide Level [Pending], Blood Urea Nitrogen [Pending], Creatinine [Pending], Estimat Glomerular Filtration Rate [Pending], Glucose Level [Pending], Calcium Level [Pending], Phosphorus Level [Pending], Magnesium Level [Pending], Total Bilirubin [Pending], Aspartate Amino Transf (AST/SGOT) [ Pending], Alanine Aminotransferase (ALT/SGPT) [Pending], Alkaline Phosphatase [ Pending], Total Protein [Pending], Albumin [Pending], Globulin [Pending], Carcinoembryonic Antigen [Pending] Current Medications Medications (Trade) Dose Ordered Sig/James Route PRN Reason Start Time Stop Time Status Last Admin Dose Admin Acetaminophen (Tylenol) 650 mg Q4H PRN ORAL fever 12/03/19 18:48 01/02/20 18:47 Albuterol/ Ipratropium (Albuterol/ Ipratropium) 3 ml Q4H PRN HHN Shortness of Breath 12/03/19 19:15 12/07/19 19:14 Apixaban (Eliquis) 2.5 mg BID ORAL 12/05/19 09:00 03/04/20 08:59 12/05/19 17:31 Clonidine HCl (Catapres Tab) 0.1 mg Q4H PRN ORAL For High Blood Pressure 12/03/19 19:15 03/01/20 19:14 Dextrose 1,000 ml @ 30 mls/hr Q24H IV 12/05/19 13:23 01/04/20 13:22 12/05/19 14:27 Dextrose (Dextrose 50%) 25 ml Q30M PRN IV Hypoglycemia 12/03/19 18:45 03/01/20 19:14 Dextrose (Dextrose 50%) 50 ml Q30M PRN IV Hypoglycemia 12/03/19 18:45 03/01/20 19:14 Escitalopram Oxalate (Lexapro) 10 mg DAILY ORAL 12/04/19 09:00 01/02/20 08:59 12/05/19 09:07 Folic Acid (Folate) 2 mg DAILY NG 12/05/19 09:00 01/04/20 08:59 12/05/19 09:07 Insulin Aspart (NovoLOG) BEFORE MEALS AND HS SUBQ 12/03/19 21:00 03/01/20 20:59 12/06/19 05:55 Meropenem 500 mg/ Sodium Chloride 55 ml @ 110 mls/hr Q12HR@0300,1500 IVPB 12/04/19 03:00 12/08/19 14:59 12/06/19 03:27 Nitroglycerin (Ntg) 0.4 mg Q5M X 3 DOSES PRN SL Prn Chest Pain 12/03/19 18:45 01/01/20 19:14 Ondansetron HCl (Zofran) 4 mg Q6H PRN IVP Nausea & Vomiting 12/03/19 19:15 01/01/20 19:14 Polyethylene Glycol (Miralax) 17 gm BEDTIME ORAL 12/06/19 21:00 01/05/20 20:59 Promethazine HCl/ Codeine (Phenergan with Codeine) 5 ml Q4H PRN ORAL For Cough 12/03/19 19:15 01/01/20 19:14 Temazepam (Restoril) 15 mg HSPRN PRN ORAL Insomnia 12/03/19 19:15 12/09/19 19:14 Vancomycin HCl ([facility] pharmacy to dose) 1 ea DAILY PRN MISC Per rx protocol 12/04/19 09:00 01/02/20 11:59 Assessment/Plan Problems: (1) Altered level of consciousness (2) UTI (urinary tract infection) (3) Severe protein-calorie malnutrition (4) History of diabetes mellitus (5) History of hypertension (6) Alzheimer's dementia (7) Unilateral weakness (8) Subdural hematoma (9) Colon cancer Assessment/Plan wbc lower Urine has GNB, MDR Klebsiella Abx as per ID Meropenem and Vancomycin f/u electrolytes swallow study swallow evaluation pending Neurology note appreciated Cherelle Vera MD Dec 06, 2019 09:24
[2019-12-06 09:30] LABS: BASOPHILS % (AUTO) 0.6 % (0.0-2.0); HEMATOCRIT 31.1 % (42.0-52.0); HEMOGLOBIN 9.7 G/DL (14.2-18.0); LYMPHOCYTES % (AUTO) 8.4 % (20.0-45.0); MEAN CORPUSCULAR VOLUME 86 FL (80-99); MONOCYTES % (AUTO) 8.2 % (1.0-10.0); NEUTROPHILS % (AUTO) 81.8 % (45.0-75.0); PLATELET COUNT 299 K/UL (150-450); RED BLOOD COUNT 3.62 M/UL (4.70-6.10)
[2019-12-06] MEDS: Eliquis 2.5mg tablet ORAL SCH ×2 (09:49→17:44)
[2019-12-06 09:51] LABS: ALANINE AMINOTRANSFERASE 29 U/L (12-78); ALBUMIN 2.1 G/DL (3.4-5.0); ALBUMIN/GLOBULIN RATIO 0.5 (1.0-2.7); ALKALINE PHOSPHATASE 69 U/L (46-116); ANION GAP 7 mmol/L (5-15); ASPARTATE AMINO TRANSFERASE 28 U/L (15-37); BILIRUBIN,TOTAL 0.2 MG/DL (0.2-1.0); BLOOD UREA NITROGEN 41 mg/dL (7-18); CALCIUM 8.9 MG/DL (8.5-10.1); CARBON DIOXIDE 29 MMOL/L (21-32); CHLORIDE 109 MMOL/L (98-107); CREATININE 1.2 MG/DL (0.55-1.30); PHOSPHORUS 1.7 MG/DL (2.5-4.9); POTASSIUM 4.1 MMOL/L (3.5-5.1); SODIUM 144 MMOL/L (136-145)
--- NOTE | 2019-12-06 10:27 | Diagnostic Imaging Report ---
EXAM: XR Right Knee, 3 Views CLINICAL HISTORY: SIDE WK TECHNIQUE: Three views of the right knee. COMPARISON: No relevant prior studies available. FINDINGS/IMPRESSION: Evaluation limited due to severely suboptimal patient positioning and substandard x-ray technique. No fracture or dislocation. Severe tricompartmental joint space narrowing and demineralization. 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 Severe osseous demineralization. Vascular calcifications, incidentally noted. If there is concern for fracture, a CT scan should be performed.
--- NOTE | 2019-12-06 10:28 | Diagnostic Imaging Report ---
EXAM: XR Right Hip With Pelvis When Performed, 1 View CLINICAL HISTORY: SIDE WK TECHNIQUE: Frontal view of the right hip with pelvis when performed. COMPARISON: No relevant prior studies available. FINDINGS/IMPRESSION: No definite right hip fracture. There is deformity of the right femoral neck. Consider CT correlation to exclude nondisplaced fracture. Severe demineralization. Severe degenerative changes of the lumbar spine. Intact left femoral neck.
--- NOTE | 2019-12-06 10:38 | Surgery Progress Note ---
Surgery Progress Note Subjective Additional Comments ng placed tolerating tf comfortable Objective Last 24 Hour Vital Signs Date Time Temp Pulse Resp B/P (MAP) Pulse Ox O2 Delivery O2 Flow Rate FiO2 12/06/19 08:00 97.7 74 20 125/56 (79) 100 12/06/19 04:00 97.7 64 20 129/59 (82) 98 12/06/19 04:00 63 12/06/19 00:00 68 12/06/19 00:00 97.7 64 16 101/65 (77) 99 12/05/19 20:00 98.2 68 18 133/61 (85) 99 12/05/19 20:00 71 12/05/19 16:00 98.5 70 18 150/76 (100) 97 12/05/19 15:35 74 12/05/19 12:00 98.3 67 17 127/57 (80) 97 12/05/19 11:32 63 I&O Intake and Output 12/05/19 12/06/19 19:00 07:00 Intake Total 1025.000 ml 215 ml Output Total 400 ml 550 ml Balance 625.000 ml -335 ml Intake Free Water 50 ml 50 ml IV Total 830.000 ml 120 ml Tube Feeding 45 ml 45 ml Blood Product 100 ml Output Urine Total 400 ml 550 ml Dressing: other Wound: other Cardiovascular: RSR Respiratory: decreased breath sounds Abdomen: soft, non-tender, present bowel sounds Extremities: no tenderness, no cyanosis Laboratory Tests Test 12/06/19 08:40 White Blood Count 8.0 K/UL (4.8-10.8) Red Blood Count 3.62 M/UL (4.70-6.10) L Hemoglobin 9.7 G/DL (14.2-18.0) L Hematocrit 31.1 % (42.0-52.0) L Mean Corpuscular Volume 86 FL (80-99) Mean Corpuscular Hemoglobin 26.9 PG (27.0-31.0) L Mean Corpuscular Hemoglobin Concent 31.3 G/DL (32.0-36.0) L Red Cell Distribution Width 13.0 % (11.6-14.8) Platelet Count 299 K/UL (150-450) Mean Platelet Volume 5.3 FL (6.5-10.1) L Neutrophils (%) (Auto) 81.8 % (45.0-75.0) H Lymphocytes (%) (Auto) 8.4 % (20.0-45.0) L Monocytes (%) (Auto) 8.2 % (1.0-10.0) Eosinophils (%) (Auto) 1.0 % (0.0-3.0) Basophils (%) (Auto) 0.6 % (0.0-2.0) Sodium Level 144 MMOL/L (136-145) Potassium Level 4.1 MMOL/L (3.5-5.1) Chloride Level 109 MMOL/L (98-107) H Carbon Dioxide Level 29 MMOL/L (21-32) Anion Gap 7 mmol/L (5-15) Blood Urea Nitrogen 41 mg/dL (7-18) H Creatinine 1.2 MG/DL (0.55-1.30) Estimat Glomerular Filtration Rate 57.1 mL/min (>60) Glucose Level 196 MG/DL (74-106) H Calcium Level 8.9 MG/DL (8.5-10.1) Phosphorus Level 1.7 MG/DL (2.5-4.9) L Magnesium Level 1.9 MG/DL (1.8-2.4) Total Bilirubin 0.2 MG/DL (0.2-1.0) Aspartate Amino Transf (AST/SGOT) 28 U/L (15-37) Alanine Aminotransferase (ALT/SGPT) 29 U/L (12-78) Alkaline Phosphatase 69 U/L (46-116) Total Protein 6.3 G/DL (6.4-8.2) L Albumin 2.1 G/DL (3.4-5.0) L Globulin 4.2 g/dL Albumin/Globulin Ratio 0.5 (1.0-2.7) L Carcinoembryonic Antigen Pending Plan Problems: (1) History of diabetes mellitus (2) History of hypertension (3) Alzheimer's dementia (4) UTI (urinary tract infection) (5) Unilateral weakness (6) Acute dehydration (7) Altered level of consciousness (8) Subdural hematoma (9) Colon cancer (10) Severe protein-calorie malnutrition Assessment & Plan: DAILY ESTIMATED NEEDS: Needs based on Underweight, wasting, wound 40kg 30-35 kcals/kg 9053-4483 total kcals 1.25-2 g protein/kg 50-80 g total protein 25-30ml/kcal mL/kg 5781-0447 total fluid mLs NUTRITION DIAGNOSIS: Increased kcal and pro needs r/t underweight status as evidenced by low BMI, moderate to severe generalized wasting, w/ multiple areas of skin compromise, DTI x4. CURRENT DIET: NPO ENTERAL NUTRITION RECOMMENDATIONS: Glucerna 1.2 goal of 45ml/hr x24 hrs to provide 1080ml, 1296 kcal, 65g pro, 869ml free h2O - Obtain GI access, initiate Glucerna 1.2 @25ml/hr for 6 hrs - Advance as tolerated 10ml/hr q4-6 hrs to goal - Flush per MD/ HOB over 30 degrees ------ ADDITIONAL RECOMMENDATIONS: 1) W/ poor po intake, add Ensure TID -> not appropriate for oral po W/ elevated BG rec Glucerna TID-> not appropriate for oral po 2) Add FRANCISCA BID -> f/up w WC eval 3) STROKE COORDINATOR eval for texture, need for non oral feeds-> S/p STROKE COORDINATOR eval, not appropriate for oral diet, TF recs as above 4) Calibrated bed scale wts daily 5) Monitor lytes w/ TF, replete as needed ACUTE: ALOC x2 days with right side paralysis, CVA, intracranial bleed, seizure , postictal state, major electrolyte abnormality, severe sepsis, Acute dehydration. H/O: subdural hematoma, colon cancer status post treatment, HTN, Syncope and collapse, anemia, DM2, Alzheimer Dementia, CKD, severe protein-calorie malnutrition, hyperlipidemia, vitamin B12 deficiency, muscle wasting, lack of coordination. POLST: Not in chart. RELEVANT MEDS: Albuterol (SOB); Zofran (Nausea); Restoril (insomnia). VITALS ON 2L NASAL CANNULA: HR: 67; RR: 19; SP02 100% PLOF: Pt consumed mechanical soft with thin liquids [facility]. Pt seen at bedside appears frail and weak. Pt able to open eye to verbal communication. Pt noted with copious, thick phlegm and debris in BOT and throughout oral cavity. Pt provided oral moisturizer and thorough oral care with Yankauer suction, removing thick phlegm, mildly improved verbal communication s/p oral care. Pt able to nod head yes when asked if Pt gets thickened liquids. 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 Pt given PO trial of nectar thick liquid teaspoons. Oral phase characterized by functional labial seal, poor bolus control resulting in suspected premature posterior spillage and subsequent suspected silent aspiration given laryngeal elevation was not well appreciated upon palpation despite verbal and tactile cues to Pt's larynx to initiate swallow; no swallow initiated. Pt did not cough or attempt to clear trial. Pt was able to eventually initiate a swallow with a 20 second delay, laryngeal elevation incomplete in feel upon palpation. Pt is a high risk for silent aspiration, would benefit from MBSS in future ( will monitor Pt's candidacy, not appropriate to participate in MBSS at this time ). RECOMMENDATIONS: 1. NPO with nutrition, hydration, and meds via NGT (12 Italian). 2. Please provide oral care BID 3. Dysphagia therapy 3-5x per week x1 week. 4. Will monitor Pts appropriateness to participate in MBSS. 5. Pt would benefit from Speech, Language, and Cognitive communication evaluation given s/p lacunar infarcts. (11) Decubitus skin ulcer Assessment & Plan: Pt presented on admission with multiple Pressure injuries. Reabsorbing DTPI L Elbow. Base of Pressure Injury is dry and black centrally with maroon borders(L)2cm x (W)1.5cm. DTPI Sacrum (L)9.5cm x (W)11.5cm. Base of Pressure Injury is indurated purpuric with surrounding maroon borders. Pt verbalized tenderness when affected site minimally palpated. DTPI R Ischium(L)8cm x (W)9.5cm. Base of pressure injury is purpuric with maroon borders. Tender when minimally palpated. DTPI L trochanter(L)4cm x (W)3.2cm. Base of injury is purpuric with surrounding Maroon borders. Tender when minimally palpated. DTPI L Ischium (L)7cm x (W)5.4cm.Base of Injury is black with marginal erythema . Tender when minimally palpated. R Heel is boggy with non-blanchable erythema (L)3cm x (W)3.5cm. L Heel is boggy with non-Blanchable erythema(L)5cm x (W)3.5cm. L 1st metatarsal erythematous,tip is fluctuant. Pt complained tender when minimally palpated. No elevation in skin temp noted. Dry scab noted to dorsal L 2nd metatarsal. Tx.Plan: Apply Moisture Barrier Paste to Sacrum and bilat ischial tuberosities. Cover each site with Optifoam drsgs. Change every 3 days and prn. Apply Cavilon Skin Barrier to R and L trochanter. Cover each site with Optifoam drsgs. Change every 7 days and prn Apply Cavilon Skin Barrier to L and R elbows. Cover each site with Optifoam drsgs. Change every 7 days and prn. Apply Cavilon Skin Barrier to both heels and Malleoli. Cover each site with Optifoam drsgs. Change every 7 days and prn. Apply Cavilon Skin Barrier to bony prominences and cover with Optifoam drsgs as needed. Reposition at least every 2hours or as tolerated. Off-load heels with pillow. APM/KARTHIK Mattress overlay. Patel Merrill Dec 06, 2019 10:38
[2019-12-06] MEDS ORDERED: Sodium Phosphate 30 MM in NS 275 ML IVPB ONE (11:30)
[2019-12-06 12:00] VITALS: BP 126/61
--- NOTE | 2019-12-06 13:27 | Internal Med Progress Note ---
Subjective Physician Name Darren Spencer Attending Physician Darren Spencer MD Current Medications Medications (Trade) Dose Ordered Sig/James Route PRN Reason Start Time Stop Time Status Last Admin Dose Admin Acetaminophen (Tylenol) 650 mg Q4H PRN ORAL fever 12/03/19 18:48 01/02/20 18:47 Albuterol/ Ipratropium (Albuterol/ Ipratropium) 3 ml Q4H PRN HHN Shortness of Breath 12/03/19 19:15 12/07/19 19:14 Apixaban (Eliquis) 2.5 mg BID ORAL 12/05/19 09:00 03/04/20 08:59 12/06/19 09:49 Clonidine HCl (Catapres Tab) 0.1 mg Q4H PRN ORAL For High Blood Pressure 12/03/19 19:15 03/01/20 19:14 Dextrose 1,000 ml @ 30 mls/hr Q24H IV 12/05/19 13:23 01/04/20 13:22 12/05/19 14:27 Dextrose (Dextrose 50%) 25 ml Q30M PRN IV Hypoglycemia 12/03/19 18:45 03/01/20 19:14 Dextrose (Dextrose 50%) 50 ml Q30M PRN IV Hypoglycemia 12/03/19 18:45 03/01/20 19:14 Escitalopram Oxalate (Lexapro) 10 mg DAILY ORAL 12/04/19 09:00 01/02/20 08:59 12/06/19 09:50 Folic Acid (Folate) 2 mg DAILY NG 12/05/19 09:00 01/04/20 08:59 12/06/19 09:50 Insulin Aspart (NovoLOG) BEFORE MEALS AND HS SUBQ 12/03/19 21:00 03/01/20 20:59 12/06/19 11:38 Meropenem 500 mg/ Sodium Chloride 55 ml @ 110 mls/hr Q12HR@0300,1500 IVPB 12/04/19 03:00 12/08/19 14:59 12/06/19 03:27 Nitroglycerin (Ntg) 0.4 mg Q5M X 3 DOSES PRN SL Prn Chest Pain 12/03/19 18:45 01/01/20 19:14 Ondansetron HCl (Zofran) 4 mg Q6H PRN IVP Nausea & Vomiting 12/03/19 19:15 01/01/20 19:14 Polyethylene Glycol (Miralax) 17 gm BEDTIME ORAL 12/06/19 21:00 01/05/20 20:59 Promethazine HCl/ Codeine (Phenergan with Codeine) 5 ml Q4H PRN ORAL For Cough 12/03/19 19:15 01/01/20 19:14 Sodium Phosphate 30 mm/Sodium Chloride 285 ml @ 47.5 mls/hr ONCE ONCE IVPB 12/06/19 11:30 12/06/19 17:29 12/06/19 11:35 Temazepam (Restoril) 15 mg HSPRN PRN ORAL Insomnia 12/03/19 19:15 12/09/19 19:14 Vancomycin HCl ([facility] pharmacy to dose) 1 ea DAILY PRN MISC Per rx protocol 12/04/19 09:00 01/02/20 11:59 Allergies: Coded Allergies: ATENOLOL (Verified Allergy, Unknown, 05/23/16) LOSARTAN (Verified Allergy, Unknown, 05/23/16) SIMVASTATIN (Verified Allergy, Unknown, 05/23/16) Uncoded Allergies: AMLIODIPINE (Allergy, Unknown, 05/23/16) PENICILLIN (Allergy, Unknown, 12/03/19) Tolerated Ceftriaxone on 12/02/19 Subjective Awake, more responsive, open eyes,WBC 8.0 renal function improving. calm. Objective Last Vital Signs Date Time Temp Pulse Resp B/P (MAP) Pulse Ox O2 Delivery O2 Flow Rate FiO2 12/06/19 09:00 Room Air 12/06/19 08:00 71 12/06/19 08:00 97.7 20 125/56 (79) 100 Laboratory Tests Test 12/06/19 08:40 White Blood Count 8.0 K/UL (4.8-10.8) Red Blood Count 3.62 M/UL (4.70-6.10) L Hemoglobin 9.7 G/DL (14.2-18.0) L Hematocrit 31.1 % (42.0-52.0) L Mean Corpuscular Volume 86 FL (80-99) Mean Corpuscular Hemoglobin 26.9 PG (27.0-31.0) L Mean Corpuscular Hemoglobin Concent 31.3 G/DL (32.0-36.0) L Red Cell Distribution Width 13.0 % (11.6-14.8) Platelet Count 299 K/UL (150-450) Mean Platelet Volume 5.3 FL (6.5-10.1) L Neutrophils (%) (Auto) 81.8 % (45.0-75.0) H Lymphocytes (%) (Auto) 8.4 % (20.0-45.0) L Monocytes (%) (Auto) 8.2 % (1.0-10.0) Eosinophils (%) (Auto) 1.0 % (0.0-3.0) Basophils (%) (Auto) 0.6 % (0.0-2.0) Sodium Level 144 MMOL/L (136-145) Potassium Level 4.1 MMOL/L (3.5-5.1) Chloride Level 109 MMOL/L (98-107) H Carbon Dioxide Level 29 MMOL/L (21-32) Anion Gap 7 mmol/L (5-15) Blood Urea Nitrogen 41 mg/dL (7-18) H Creatinine 1.2 MG/DL (0.55-1.30) Estimat Glomerular Filtration Rate 57.1 mL/min (>60) Glucose Level 196 MG/DL (74-106) H Calcium Level 8.9 MG/DL (8.5-10.1) Phosphorus Level 1.7 MG/DL (2.5-4.9) L Magnesium Level 1.9 MG/DL (1.8-2.4) Total Bilirubin 0.2 MG/DL (0.2-1.0) Aspartate Amino Transf (AST/SGOT) 28 U/L (15-37) Alanine Aminotransferase (ALT/SGPT) 29 U/L (12-78) Alkaline Phosphatase 69 U/L (46-116) Total Protein 6.3 G/DL (6.4-8.2) L Albumin 2.1 G/DL (3.4-5.0) L Globulin 4.2 g/dL Albumin/Globulin Ratio 0.5 (1.0-2.7) L Carcinoembryonic Antigen Pending Microbiology Date/Time Source Procedure Growth Status 12/03/19 19:00 Nasal Nares MRSA Culture - Final NO METHICILLIN RESISTANT STAPH AUREUS... Complete 12/03/19 19:00 Rectum VRE Culture - Final Enterococcus Faecalis - Vre Complete 12/03/19 19:00 Rectum - Final NO CARBAPENEM-RESISTANT ENTEROBACTERI... Complete Intake and Output 12/05/19 12/06/19 19:00 07:00 Intake Total 1025.000 ml 215 ml Output Total 400 ml 550 ml Balance 625.000 ml -335 ml Intake Free Water 50 ml 50 ml IV Total 830.000 ml 120 ml Tube Feeding 45 ml 45 ml Blood Product 100 ml Output Urine Total 400 ml 550 ml Objective GENERAL: open eyes more responsive, cachectic, chronic ill appearing. HEENT: Pupils equal and reactive to light, anicteric, NG tube. NECK: Supple. No JVD. LUNGS: Fair bilateral air entry. No wheezing, rhonchi. Decreased air in the bases. HEART: S1, S2. Distant heart sounds. No murmur or gallop. ABDOMEN: Soft, nondistended, nontender. No rebound tenderness. No fluid shift. EXTREMITIES: No cyanosis, clubbing, or edema. Muscle atrophy to bilateral lower extremities noted. NEUROLOGIC: Cranial nerves II to XII grossly intact, motor right side is weaker than left side. RECTAL/GENITOURINARY: Refused and deferred PSYCHIATRIC: Mood and affect unable to obtain secondary to the patient's status. Assessment/Plan Assessment/Plan ASSESSMENT: 1. Acute encephalopathy, most likely secondary to toxic metabolic encephalopathy as well as acute CVA. 2. Acute ESBL pseudomonas urinary tract infection. 3. Diabetes type 2. 4. Acute kidney injury, on chronic renal insufficiency. 5. Multifocal infarction, confirmed on MRI. 6. Hypertension. 7. Dyslipidemia. 8. Colon cancer, status post resection. 9. Alzheimer dementia. 10. History of fall with subdural hematoma, resolved. 11. Severe protein-calorie malnutrition. 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 PLAN: In telemetry. Follow up with laboratory and culture. Abx: Meropenem. ID consultation, Dr. Lopez, pulmonary consultation, Dr. Vera, Cardiology consultation with Dr. Beka Saleh, Nephrology consultation with Dr. Vin Otero. Code status: Full code. DVT prophylaxis: Eliquis. Tolerated Tube feeding @ 55 cc/hr. Darren Spencer MD Dec 06, 2019 13:27
--- NOTE | 2019-12-06 13:30 | Nephrology Progress Note ---
Assessment/Plan Problem List: (1) FRANKY (acute kidney injury) (2) Anemia (3) Severe protein-calorie malnutrition (4) Alzheimer's dementia (5) UTI (urinary tract infection) (6) Acute dehydration Assessment Acute on chronic renal failure. Previous admission patient was discharged on serum creatinine of 1.6. Severe malnutrition. Encephalopathy toxic metabolic. Evidence of UTI. Multi-infarct brain disease. Diabetes mellitus Hypertension History of colon cancer Alzheimer's [facility] resident Full code Plan December 05: Renal parameters improving. Continue IV fluid. Continue to monitor renal parameters and electrolytes. Medication list reviewed. Abnormal electrolyte addressed. December 04: Serum creatinine improving. IV fluid changed to D5W 30 cc an hour. Feeding through NG tube is in process. Continue to monitor electrolytes and renal parameters. December 03: Late [place] entry due to [place] [facility] [place] Serum creatinine improving. Folic acid supplement given. Continue to monitor renal parameters Slow hydrate Monitor renal parameters urine output Antibiotics Avoid nephrotoxic's Per consultants Improve nutritional status as possible Subjective ROS Limited/Unobtainable: Yes Objective Objective Last 24 Hour Vital Signs Date Time Temp Pulse Resp B/P (MAP) Pulse Ox O2 Delivery O2 Flow Rate FiO2 12/06/19 09:00 Room Air 12/06/19 08:00 71 12/06/19 08:00 97.7 74 20 125/56 (79) 100 12/06/19 04:00 97.7 64 20 129/59 (82) 98 12/06/19 04:00 63 12/06/19 00:00 68 12/06/19 00:00 97.7 64 16 101/65 (77) 99 12/05/19 20:00 98.2 68 18 133/61 (85) 99 12/05/19 20:00 71 12/05/19 16:00 98.5 70 18 150/76 (100) 97 12/05/19 15:35 74 Intake and Output 12/05/19 12/06/19 19:00 07:00 Intake Total 1025.000 ml 215 ml Output Total 400 ml 550 ml Balance 625.000 ml -335 ml Intake Free Water 50 ml 50 ml IV Total 830.000 ml 120 ml Tube Feeding 45 ml 45 ml Blood Product 100 ml Output Urine Total 400 ml 550 ml Laboratory Tests 12/06/19 08:40: White Blood Count 8.0, Red Blood Count 3.62L, Hemoglobin 9.7L, Hematocrit 31.1L , Mean Corpuscular Volume 86, Mean Corpuscular Hemoglobin 26.9L, Mean Corpuscular Hemoglobin Concent 31.3L, Red Cell Distribution Width 13.0, Platelet Count 299, Mean Platelet Volume 5.3L, Neutrophils (%) (Auto) 81.8H, Lymphocytes (%) (Auto) 8.4L, Monocytes (%) (Auto) 8.2, Eosinophils (%) (Auto) 1.0, Basophils (%) (Auto) 0.6, Sodium Level 144, Potassium Level 4.1, Chloride Level 109H, Carbon Dioxide Level 29, Anion Gap 7, Blood Urea Nitrogen 41H, Creatinine 1.2, Estimat Glomerular Filtration Rate 57.1, Glucose Level 196H, Calcium Level 8.9, Phosphorus Level 1.7L, Magnesium Level 1.9, Total Bilirubin 0.2, Aspartate Amino Transf (AST/SGOT) 28, Alanine Aminotransferase (ALT/SGPT) 29, Alkaline Phosphatase 69, Total Protein 6.3L, Albumin 2.1L, Globulin 4.2, Albumin/Globulin Ratio 0.5L, Carcinoembryonic Antigen [Pending] Height (Feet): 5 Height (Inches): 6.00 Weight (Pounds): 86 General Appearance: no apparent distress, lethargic Cardiovascular: normal rate Respiratory/Chest: decreased breath sounds Abdomen: soft Vin Otero MD Dec 06, 2019 13:30
[2019-12-06 16:00] VITALS: BP 128/71
--- NOTE | 2019-12-06 17:34 | Cardiology Progress Note ---
Assessment/Plan Assessment/Plan multi-stroke dementia encephalopathy, UTI, cachexia, malnutrition, NG tube. hemodynamically stable, Subjective Subjective The patient is confused and talking to himself Objective Last 24 Hour Vital Signs Date Time Temp Pulse Resp B/P (MAP) Pulse Ox O2 Delivery O2 Flow Rate FiO2 12/06/19 16:00 81 12/06/19 16:00 98.7 78 20 128/71 (90) 96 12/06/19 12:00 98.1 81 19 126/61 (82) 98 12/06/19 12:00 73 12/06/19 09:00 Room Air 12/06/19 08:00 71 12/06/19 08:00 97.7 74 20 125/56 (79) 100 12/06/19 04:00 97.7 64 20 129/59 (82) 98 12/06/19 04:00 63 12/06/19 00:00 68 12/06/19 00:00 97.7 64 16 101/65 (77) 99 12/05/19 20:00 98.2 68 18 133/61 (85) 99 12/05/19 20:00 71 EENT: PERRL/EOMI, other - facial Neck: supple Rhythm: NSR Cardiovascular: regular rhythm Respiratory/Chest: crackles/rales Abdomen: soft Extremities: other - contractures Intake and Output 12/05/19 12/06/19 19:00 07:00 Intake Total 1025.000 ml 215 ml Output Total 400 ml 550 ml Balance 625.000 ml -335 ml Intake Free Water 50 ml 50 ml IV Total 830.000 ml 120 ml Tube Feeding 45 ml 45 ml Blood Product 100 ml Output Urine Total 400 ml 550 ml Laboratory Tests Test 12/06/19 08:40 White Blood Count 8.0 K/UL (4.8-10.8) Red Blood Count 3.62 M/UL (4.70-6.10) L Hemoglobin 9.7 G/DL (14.2-18.0) L Hematocrit 31.1 % (42.0-52.0) L Mean Corpuscular Volume 86 FL (80-99) Mean Corpuscular Hemoglobin 26.9 PG (27.0-31.0) L Mean Corpuscular Hemoglobin Concent 31.3 G/DL (32.0-36.0) L Red Cell Distribution Width 13.0 % (11.6-14.8) Platelet Count 299 K/UL (150-450) Mean Platelet Volume 5.3 FL (6.5-10.1) L Neutrophils (%) (Auto) 81.8 % (45.0-75.0) H Lymphocytes (%) (Auto) 8.4 % (20.0-45.0) L Monocytes (%) (Auto) 8.2 % (1.0-10.0) Eosinophils (%) (Auto) 1.0 % (0.0-3.0) Basophils (%) (Auto) 0.6 % (0.0-2.0) Sodium Level 144 MMOL/L (136-145) Potassium Level 4.1 MMOL/L (3.5-5.1) Chloride Level 109 MMOL/L (98-107) H Carbon Dioxide Level 29 MMOL/L (21-32) Anion Gap 7 mmol/L (5-15) Blood Urea Nitrogen 41 mg/dL (7-18) H Creatinine 1.2 MG/DL (0.55-1.30) Estimat Glomerular Filtration Rate 57.1 mL/min (>60) Glucose Level 196 MG/DL (74-106) H Calcium Level 8.9 MG/DL (8.5-10.1) Phosphorus Level 1.7 MG/DL (2.5-4.9) L Magnesium Level 1.9 MG/DL (1.8-2.4) Total Bilirubin 0.2 MG/DL (0.2-1.0) Aspartate Amino Transf (AST/SGOT) 28 U/L (15-37) Alanine Aminotransferase (ALT/SGPT) 29 U/L (12-78) Alkaline Phosphatase 69 U/L (46-116) Total Protein 6.3 G/DL (6.4-8.2) L Albumin 2.1 G/DL (3.4-5.0) L Globulin 4.2 g/dL Albumin/Globulin Ratio 0.5 (1.0-2.7) L Carcinoembryonic Antigen Pending Microbiology Date/Time Source Procedure Growth Status 12/03/19 19:00 Nasal Nares MRSA Culture - Final NO METHICILLIN RESISTANT STAPH AUREUS... Complete 12/03/19 19:00 Rectum VRE Culture - Final Enterococcus Faecalis - Vre Complete 12/03/19 19:00 Rectum - Final NO CARBAPENEM-RESISTANT ENTEROBACTERI... Complete Marlena Almazan MD Dec 06, 2019 17:34
--- NOTE | 2019-12-06 19:45 | NUR ---
NURSE NOTES: Report received from ELLI Baxter. Patient is alert and oriented x2. No SOB or distress. HOB elevated for GTube feeding. GTube intact. No aspiration. Call light with in reach. monitoring analyst intact. Bed at lowest position locked and side rails up. Will continue with plan of care.
[2019-12-06 20:00] VITALS: BP 116/60
[2019-12-06] MEDS ORDERED: D5 1/2NS 1000ml IV ONE (20:09)
[2019-12-06] MEDS: Miralax 17gm pkt ORAL SCH (21:00)
[2019-12-07] VITALS: BP 118/65
[2019-12-07] MEDS: Meropenem 500 MG in NS 55 ML IVPB SCH ×2 (02:48→15:13)
[2019-12-07 04:00] VITALS: BP 120/62
--- NOTE | 2019-12-07 04:30 | NUR ---
NURSE NOTES: Patient pulled out NG tube during position change. New NGtube inserted with Charge nurse, Yesenia, Placement verified with KUB. KUB states that NG tube is in stomach but advancement needed. NG tube advanced and auscultated placement.
--- NOTE | 2019-12-07 05:36 | Diagnostic Imaging Report ---
EXAM: XR Abdomen, 1 View CLINICAL HISTORY: NGT TECHNIQUE: Frontal view of the upper abdomen. COMPARISON: No relevant prior studies available. FINDINGS: Lower thorax: There is a calcified thoracic aorta. Calcifications left lung base compatible granulomas atelectatic changes. Intraperitoneal space: No free air under the diaphragms. No dilated gas filled bowel loops in the included [id number] Gastrointestinal tract: Unremarkable. No dilation. Bones/joints: Unremarkable. Tubes, lines and devices: Nasogastric tube terminates in the left upper quadrant abdomen with a side port just above the diaphragms. IMPRESSION: NG tube just barely within the stomach with side-port above the diaphragms. Consider advancing if clinically warranted.
[2019-12-07] MEDS: NovoLOG Insulin Flexpen SUBQ SCH ×4 (06:30→21:00)
--- NOTE | 2019-12-07 07:32 | General Progress Note ---
Assessment/Plan Assessment/Plan: anemia AMS dysphagia DM h/o colon ca RI NGTF may need PEG anemia work up fu labs Subjective ROS Limited/Unobtainable: No Allergies: Coded Allergies: ATENOLOL (Verified Allergy, Unknown, 05/23/16) LOSARTAN (Verified Allergy, Unknown, 05/23/16) SIMVASTATIN (Verified Allergy, Unknown, 05/23/16) Uncoded Allergies: AMLIODIPINE (Allergy, Unknown, 05/23/16) PENICILLIN (Allergy, Unknown, 12/03/19) Tolerated Ceftriaxone on 12/02/19 Objective Last 24 Hour Vital Signs Date Time Temp Pulse Resp B/P (MAP) Pulse Ox O2 Delivery O2 Flow Rate FiO2 12/07/19 04:00 97.8 80 19 120/62 (81) 96 12/07/19 04:00 82 12/07/19 00:00 76 12/07/19 00:00 97.8 89 18 118/65 (82) 97 12/06/19 20:00 97.9 91 20 116/60 (78) 96 12/06/19 20:00 69 12/06/19 16:00 81 12/06/19 16:00 98.7 78 20 128/71 (90) 96 12/06/19 12:00 98.1 81 19 126/61 (82) 98 12/06/19 12:00 73 12/06/19 09:00 Room Air 12/06/19 08:00 71 12/06/19 08:00 97.7 74 20 125/56 (79) 100 Intake and Output 12/06/19 12/07/19 19:00 07:00 Intake Total 250 ml Output Total 900 ml Balance -650 ml Intake Free Water 250 ml Output Urine Total 900 ml # Voids 3 1 Laboratory Tests 12/06/19 08:40: White Blood Count 8.0, Red Blood Count 3.62L, Hemoglobin 9.7L, Hematocrit 31.1L , Mean Corpuscular Volume 86, Mean Corpuscular Hemoglobin 26.9L, Mean Corpuscular Hemoglobin Concent 31.3L, Red Cell Distribution Width 13.0, Platelet Count 299, Mean Platelet Volume 5.3L, Neutrophils (%) (Auto) 81.8H, Lymphocytes (%) (Auto) 8.4L, Monocytes (%) (Auto) 8.2, Eosinophils (%) (Auto) 1.0, Basophils (%) (Auto) 0.6, Sodium Level 144, Potassium Level 4.1, Chloride Level 109H, Carbon Dioxide Level 29, Anion Gap 7, Blood Urea Nitrogen 41H, Creatinine 1.2, Estimat Glomerular Filtration Rate 57.1, Glucose Level 196H, Calcium Level 8.9, Phosphorus Level 1.7L, Magnesium Level 1.9, Total Bilirubin 0.2, Aspartate Amino Transf (AST/SGOT) 28, Alanine Aminotransferase (ALT/SGPT) 29, Alkaline Phosphatase 69, Total Protein 6.3L, Albumin 2.1L, Globulin 4.2, Albumin/Globulin Ratio 0.5L, Carcinoembryonic Antigen [Pending] Height (Feet): 5 Height (Inches): 6.00 Weight (Pounds): 86 General Appearance: no apparent distress EENT: normal ENT inspection Neck: supple Cardiovascular: normal rate Respiratory/Chest: decreased breath sounds Abdomen: normal bowel sounds, non tender, soft Extremities: non-tender Mamadou Johnson MD Dec 07, 2019 07:32
--- NOTE | 2019-12-07 07:50 | NUR ---
NURSE HAND-OFF REPORT: Important Events on Shift:[NG tube pulled out by patient during repositioning, KUB ordered and placement checked. NG tube inside stomach but needed advancement. Advancement of NGtube done. ] Patient Status: [Stable, Alert and oriented x1] Diet: [Glucerna 1.2 at 50cc] Pending Orders: [] Pending Results/Labs:[] Pending MD notification:[] Latest Vital Signs: Temperature 97.8 , Pulse 80 , B/P 120 /62 , Respiratory Rate 19 , O2 SAT 96 , Room Air, O2 Flow Rate . Vital Sign Comment: [] EKG Rhythm: SR w BBB Rhythm change?: N MD Notified?: Y -Dr Delfino RUFFIN Response: Latest Zhang Fall Score: 50 Fall Risk: High Risk Safety Measures: Call light Within Reach, Bed Alarm Zone 2, Side Rails Side Rails x3, Bed position Low and Locked. Fall Precautions: Yellow Socks Yellow Gown Report given to [ELLI Schrader].
[2019-12-07 08:00] VITALS: BP 136/67
--- NOTE | 2019-12-07 08:05 | NUR ---
NURSE NOTES: Received report from ELLI Butterfield. Pt Alert, confused. No s/s of acute respiratory and cardiac distress. NG tube inplace with feeding running Glucerna 1.2 @ 50 cc/hr. Bilateral soft wrist restraints in place, checked for circulation. F/C draining by gravity. Bed in low position, sie rails up x3 and call light within reach. Will continue to monitor.
[2019-12-07] MEDS: Eliquis 2.5mg tablet ORAL SCH ×2 (08:43→17:56)
[2019-12-07 09:29] LABS: HEMATOCRIT 30.9 % (42.0-52.0); HEMOGLOBIN 9.7 G/DL (14.2-18.0); MEAN CORPUSCULAR VOLUME 86 FL (80-99); PLATELET COUNT 286 K/UL (150-450); RED BLOOD COUNT 3.59 M/UL (4.70-6.10); RED CELL DISTRIBUTION WIDTH 13.1 % (11.6-14.8); WHITE BLOOD COUNT 9.5 K/UL (4.8-10.8)
--- NOTE | 2019-12-07 09:46 | Infectious Diseases Prog Note ---
Assessment/Plan Assessment: COVID19 neg x1 (12/01 rapid COVID PCR neg) UTI -u/a wbc tnct, nit neg, leuk +3; ucx >100k ESBL K. pna Afebrile Leukocytosis; SP -Bcx NTD Probable PNA -12/01 CXR: Obscured left hemidiaphragm, could indicate pleural fluid and/ orparenchymal consolidation/atelectasis. Correlate with clinical findings Acute encephalopathy/facial droop- Multifocal infarcts -12/01 Brain MRI wo: Multifocal infarcts the largest of which are located within the norberto left of midline as well as the left frontal lobe medially. Multifocal lacunar infarcts are noted scattered bilaterally including the cerebellar hemispheres and the left cerebellar peduncle. Age-related changes. CT head wo: Age-related atrophy and small vessel disease of aging, similar to that noted on the previous study. No acute intracranial pathology. If there is concern for etiology such as early acute lacunar infarcts, magnetic resonance imaging of the brain with diffusion-weighted sequences should be performed for follow-up FRANKY on CKD, worsened, now improvnig -REnal US: Small kidneys bilaterally. No evidence of hydronephrosis. Empty bladder with a Vela catheter. Incidental finding left renal cyst. Dm2 HTN HLD colon CA sp treatment Alzheimer's dementia fall w/ resultant [facility] resident ([facility]) Plan: -Continue empiric IV Vancomycin #3 -repaet CXR if no evidence of PNA- will dc -Meropenem #5/7 for ESBL UTI -12/02 Sp Aztreonam #1 -12/01 SP Ceftriaxone x1 -f/u cx -Monitor CBC/CMP, temperatures -aspiration precautions Thank you for this consultation. Will continue to follow along with you. Discussed with RN. Subjective Allergies: Coded Allergies: ATENOLOL (Verified Allergy, Unknown, 05/23/16) LOSARTAN (Verified Allergy, Unknown, 05/23/16) SIMVASTATIN (Verified Allergy, Unknown, 05/23/16) Uncoded Allergies: AMLIODIPINE (Allergy, Unknown, 05/23/16) PENICILLIN (Allergy, Unknown, 12/03/19) Tolerated Ceftriaxone on 12/02/19 Afebrile Satting well on RA No Leukocytosis Objective Last 24 Hour Vital Signs Date Time Temp Pulse Resp B/P (MAP) Pulse Ox O2 Delivery O2 Flow Rate FiO2 12/07/19 09:00 Room Air 9/6/20 08:43 78 16 94 Room Air 21 12/07/19 08:00 86 12/07/19 08:00 96.7 81 19 136/67 (90) 98 12/07/19 04:00 97.8 80 19 120/62 (81) 96 12/07/19 04:00 82 12/07/19 00:00 76 12/07/19 00:00 97.8 89 18 118/65 (82) 97 12/06/19 20:00 97.9 91 20 116/60 (78) 96 12/06/19 20:00 69 12/06/19 16:00 81 12/06/19 16:00 98.7 78 20 128/71 (90) 96 12/06/19 12:00 98.1 81 19 126/61 (82) 98 12/06/19 12:00 73 Height (Feet): 5 Height (Inches): 6.00 Weight (Pounds): 86 GEN: NAD HEENT: NCAT, MMM, EOMI Pulm: Equal chest rise and fall B/L, NO accessory muscle use ABD: Soft, ND Laboratory Tests Test 12/07/19 07:48 White Blood Count 9.5 K/UL (4.8-10.8) Red Blood Count 3.59 M/UL (4.70-6.10) L Hemoglobin 9.7 G/DL (14.2-18.0) L Hematocrit 30.9 % (42.0-52.0) L Mean Corpuscular Volume 86 FL (80-99) Mean Corpuscular Hemoglobin 27.0 PG (27.0-31.0) Mean Corpuscular Hemoglobin Concent 31.3 G/DL (32.0-36.0) L Red Cell Distribution Width 13.1 % (11.6-14.8) Platelet Count 286 K/UL (150-450) Mean Platelet Volume 5.3 FL (6.5-10.1) L Neutrophils (%) (Auto) % (45.0-75.0) Lymphocytes (%) (Auto) % (20.0-45.0) Monocytes (%) (Auto) % (1.0-10.0) Eosinophils (%) (Auto) % (0.0-3.0) Basophils (%) (Auto) % (0.0-2.0) Neutrophils % (Manual) Pending Lymphocytes % (Manual) Pending Platelet Estimate Pending Platelet Morphology Pending Erythrocyte Sedimentation Rate Pending Sodium Level Pending Potassium Level Pending Chloride Level Pending Carbon Dioxide Level Pending Blood Urea Nitrogen Pending Creatinine Pending Estimat Glomerular Filtration Rate Pending Glucose Level Pending Calcium Level Pending Phosphorus Level Pending Magnesium Level Pending Total Bilirubin Pending Aspartate Amino Transf (AST/SGOT) Pending Alanine Aminotransferase (ALT/SGPT) Pending Alkaline Phosphatase Pending C-Reactive Protein, Quantitative Pending Total Protein Pending Albumin Pending Globulin Pending Current Medications Medications (Trade) Dose Ordered Sig/James Route PRN Reason Start Time Stop Time Status Last Admin Dose Admin Acetaminophen (Tylenol) 650 mg Q4H PRN ORAL fever 12/03/19 18:48 01/02/20 18:47 Albuterol/ Ipratropium (Albuterol/ Ipratropium) 3 ml Q4H PRN HHN Shortness of Breath 12/03/19 19:15 12/07/19 19:14 Apixaban (Eliquis) 2.5 mg BID ORAL 12/05/19 09:00 03/04/20 08:59 12/07/19 08:43 Clonidine HCl (Catapres Tab) 0.1 mg Q4H PRN ORAL For High Blood Pressure 12/03/19 19:15 03/01/20 19:14 Dextrose 1,000 ml @ 30 mls/hr Q24H IV 12/05/19 13:23 01/04/20 13:22 12/07/19 08:54 Dextrose (Dextrose 50%) 25 ml Q30M PRN IV Hypoglycemia 12/03/19 18:45 03/01/20 19:14 Dextrose (Dextrose 50%) 50 ml Q30M PRN IV Hypoglycemia 12/03/19 18:45 03/01/20 19:14 Escitalopram Oxalate (Lexapro) 10 mg DAILY ORAL 12/04/19 09:00 01/02/20 08:59 12/07/19 08:43 Folic Acid (Folate) 2 mg DAILY NG 12/05/19 09:00 01/04/20 08:59 12/07/19 08:43 Insulin Aspart (NovoLOG) BEFORE MEALS AND HS SUBQ 12/03/19 21:00 03/01/20 20:59 12/06/19 11:38 Meropenem 500 mg/ Sodium Chloride 55 ml @ 110 mls/hr Q12HR@0300,1500 IVPB 12/04/19 03:00 12/08/19 14:59 12/07/19 02:48 Nitroglycerin (Ntg) 0.4 mg Q5M X 3 DOSES PRN SL Prn Chest Pain 12/03/19 18:45 01/01/20 19:14 Ondansetron HCl (Zofran) 4 mg Q6H PRN IVP Nausea & Vomiting 12/03/19 19:15 01/01/20 19:14 Polyethylene Glycol (Miralax) 17 gm BEDTIME ORAL 12/06/19 21:00 01/05/20 20:59 12/06/19 21:00 Promethazine HCl/ Codeine (Phenergan with Codeine) 5 ml Q4H PRN ORAL For Cough 12/03/19 19:15 01/01/20 19:14 Temazepam (Restoril) 15 mg HSPRN PRN ORAL Insomnia 12/03/19 19:15 12/09/19 19:14 Bang Rogers MD Dec 07, 2019 09:46
[2019-12-07 10:05] LABS: PHOSPHORUS 2.3 MG/DL (2.5-4.9)
[2019-12-07 10:20] LABS: ALANINE AMINOTRANSFERASE 70 U/L (12-78); ALBUMIN 2.2 G/DL (3.4-5.0); ALBUMIN/GLOBULIN RATIO 0.6 (1.0-2.7); ALKALINE PHOSPHATASE 71 U/L (46-116); ANION GAP 9 mmol/L (5-15); ASPARTATE AMINO TRANSFERASE 54 U/L (15-37); BILIRUBIN,TOTAL 0.3 MG/DL (0.2-1.0); BLOOD UREA NITROGEN 47 mg/dL (7-18); CALCIUM 8.9 MG/DL (8.5-10.1); CARBON DIOXIDE 28 MMOL/L (21-32); CHLORIDE 107 MMOL/L (98-107); CREATININE 1.1 MG/DL (0.55-1.30); POTASSIUM 4.8 MMOL/L (3.5-5.1); SODIUM 144 MMOL/L (136-145)
--- NOTE | 2019-12-07 11:18 | Nephrology Progress Note ---
Assessment/Plan Problem List: (1) FRANKY (acute kidney injury) (2) Anemia (3) Severe protein-calorie malnutrition (4) Alzheimer's dementia (5) UTI (urinary tract infection) (6) Acute dehydration Assessment Acute on chronic renal failure. Previous admission patient was discharged on serum creatinine of 1.6. Severe malnutrition. Encephalopathy toxic metabolic. Evidence of UTI. Multi-infarct brain disease. Diabetes mellitus Hypertension History of colon cancer [facility] Full code Plan December 06: Renal parameters stable. DC IV fluid. Continue per consultants. December 05: Renal parameters improving. Continue IV fluid. Continue to monitor renal parameters and electrolytes. Medication list reviewed. Abnormal electrolyte addressed. December 04: Serum creatinine improving. IV fluid changed to D5W 30 cc an hour. Feeding through NG tube is in process. Continue to monitor electrolytes and renal parameters. December 03: Late note entry due to system problem at the [facility] today. Serum creatinine improving. Folic acid supplement given. Continue to monitor renal parameters Slow hydrate Monitor renal parameters urine output Antibiotics Avoid nephrotoxic's Per consultants Improve nutritional status as possible Subjective ROS Limited/Unobtainable: No Constitutional: Reports: malaise, weakness Objective Objective Last 24 Hour Vital Signs Date Time Temp Pulse Resp B/P (MAP) Pulse Ox O2 Delivery O2 Flow Rate FiO2 12/07/19 09:00 Room Air 12/07/19 08:43 78 16 94 Room Air 21 12/07/19 08:00 86 12/07/19 08:00 96.7 81 19 136/67 (90) 98 12/07/19 04:00 97.8 80 19 120/62 (81) 96 12/07/19 04:00 82 12/07/19 00:00 76 12/07/19 00:00 97.8 89 18 118/65 (82) 97 12/06/19 20:00 97.9 91 20 116/60 (78) 96 12/06/19 20:00 69 12/06/19 16:00 81 12/06/19 16:00 98.7 78 20 128/71 (90) 96 12/06/19 12:00 98.1 81 19 126/61 (82) 98 12/06/19 12:00 73 Intake and Output 12/06/19 12/07/19 19:00 07:00 Intake Total 250 ml Output Total 900 ml Balance -650 ml Intake Free Water 250 ml Output Urine Total 900 ml # Voids 3 1 Laboratory Tests 12/07/19 07:48: White Blood Count 9.5, Red Blood Count 3.59L, Hemoglobin 9.7L, Hematocrit 30.9L , Mean Corpuscular Volume 86, Mean Corpuscular Hemoglobin 27.0, Mean Corpuscular Hemoglobin Concent 31.3L, Red Cell Distribution Width 13.1, Platelet Count 286, Mean Platelet Volume 5.3L, Neutrophils (%) (Auto) , Lymphocytes (%) (Auto) , Monocytes (%) (Auto) , Eosinophils (%) (Auto) , Basophils (%) (Auto) , Neutrophils % (Manual) [Pending], Lymphocytes % (Manual) [Pending], Platelet Estimate [Pending], Platelet Morphology [Pending], Erythrocyte Sedimentation Rate 90H, Sodium Level 144, Potassium Level 4.8, Chloride Level 107, Carbon Dioxide Level 28, Anion Gap 9, Blood Urea Nitrogen 47H, Creatinine 1.1, Estimat Glomerular Filtration Rate > 60, Glucose Level 171H , Calcium Level 8.9, Phosphorus Level 2.3L, Magnesium Level 1.9, Total Bilirubin 0.3, Aspartate Amino Transf (AST/SGOT) 54H, Alanine Aminotransferase ( ALT/SGPT) 70, Alkaline Phosphatase 71, C-Reactive Protein, Quantitative 2.2H, Total Protein 5.9L, Albumin 2.2L, Globulin 3.7, Albumin/Globulin Ratio 0.6L Height (Feet): 5 Height (Inches): 6.00 Weight (Pounds): 86 General Appearance: no apparent distress EENT: other - NG tube feeding Cardiovascular: normal rate Respiratory/Chest: decreased breath sounds Abdomen: distended Vin Otero MD Dec 07, 2019 11:18
[2019-12-07 12:00] VITALS: BP 113/62
[2019-12-07 16:00] VITALS: BP 127/61
--- NOTE | 2019-12-07 16:00 | Internal Med Progress Note ---
Subjective Physician Name Darren Spencer Attending Physician Darren Spencer MD Current Medications Medications (Trade) Dose Ordered Sig/James Route PRN Reason Start Time Stop Time Status Last Admin Dose Admin Acetaminophen (Tylenol) 650 mg Q4H PRN ORAL fever 12/03/19 18:48 01/02/20 18:47 Albuterol/ Ipratropium (Albuterol/ Ipratropium) 3 ml Q4H PRN HHN Shortness of Breath 12/03/19 19:15 12/07/19 19:14 Apixaban (Eliquis) 2.5 mg BID ORAL 12/05/19 09:00 03/04/20 08:59 12/07/19 08:43 Clonidine HCl (Catapres Tab) 0.1 mg Q4H PRN ORAL For High Blood Pressure 12/03/19 19:15 03/01/20 19:14 Dextrose (Dextrose 50%) 25 ml Q30M PRN IV Hypoglycemia 12/03/19 18:45 03/01/20 19:14 Dextrose (Dextrose 50%) 50 ml Q30M PRN IV Hypoglycemia 12/03/19 18:45 03/01/20 19:14 Escitalopram Oxalate (Lexapro) 10 mg DAILY ORAL 12/04/19 09:00 01/02/20 08:59 12/07/19 08:43 Folic Acid (Folate) 2 mg DAILY NG 12/05/19 09:00 01/04/20 08:59 12/07/19 08:43 Insulin Aspart (NovoLOG) BEFORE MEALS AND HS SUBQ 12/03/19 21:00 03/01/20 20:59 12/07/19 11:45 Meropenem 500 mg/ Sodium Chloride 55 ml @ 110 mls/hr Q12HR@0300,1500 IVPB 12/04/19 03:00 12/08/19 14:59 12/07/19 15:13 Nitroglycerin (Ntg) 0.4 mg Q5M X 3 DOSES PRN SL Prn Chest Pain 12/03/19 18:45 01/01/20 19:14 Ondansetron HCl (Zofran) 4 mg Q6H PRN IVP Nausea & Vomiting 12/03/19 19:15 01/01/20 19:14 Polyethylene Glycol (Miralax) 17 gm BEDTIME ORAL 12/06/19 21:00 01/05/20 20:59 12/06/19 21:00 Promethazine HCl/ Codeine (Phenergan with Codeine) 5 ml Q4H PRN ORAL For Cough 12/03/19 19:15 01/01/20 19:14 Temazepam (Restoril) 15 mg HSPRN PRN ORAL Insomnia 12/03/19 19:15 12/09/19 19:14 Allergies: Coded Allergies: ATENOLOL (Verified Allergy, Unknown, 05/23/16) LOSARTAN (Verified Allergy, Unknown, 05/23/16) SIMVASTATIN (Verified Allergy, Unknown, 05/23/16) Uncoded Allergies: AMLIODIPINE (Allergy, Unknown, 05/23/16) PENICILLIN (Allergy, Unknown, 12/03/19) Tolerated Ceftriaxone on 12/02/19 Subjective Awake, more responsive, open eyes,WBC 9.5, renal function stable. calm. Objective Last Vital Signs Date Time Temp Pulse Resp B/P (MAP) Pulse Ox O2 Delivery O2 Flow Rate FiO2 12/07/19 12:00 87 12/07/19 12:00 98.1 18 113/62 (79) 95 12/07/19 09:00 Room Air 12/07/19 08:43 21 Laboratory Tests Test 12/07/19 07:48 White Blood Count 9.5 K/UL (4.8-10.8) Red Blood Count 3.59 M/UL (4.70-6.10) L Hemoglobin 9.7 G/DL (14.2-18.0) L Hematocrit 30.9 % (42.0-52.0) L Mean Corpuscular Volume 86 FL (80-99) Mean Corpuscular Hemoglobin 27.0 PG (27.0-31.0) Mean Corpuscular Hemoglobin Concent 31.3 G/DL (32.0-36.0) L Red Cell Distribution Width 13.1 % (11.6-14.8) Platelet Count 286 K/UL (150-450) Mean Platelet Volume 5.3 FL (6.5-10.1) L Neutrophils (%) (Auto) % (45.0-75.0) Lymphocytes (%) (Auto) % (20.0-45.0) Monocytes (%) (Auto) % (1.0-10.0) Eosinophils (%) (Auto) % (0.0-3.0) Basophils (%) (Auto) % (0.0-2.0) Differential Total Cells Counted 100 Neutrophils % (Manual) 86 % (45-75) H Lymphocytes % (Manual) 9 % (20-45) L Monocytes % (Manual) 4 % (1-10) Eosinophils % (Manual) 1 % (0-3) Basophils % (Manual) 0 % (0-2) Band Neutrophils 0 % (0-8) Platelet Estimate Adequate Platelet Morphology Normal Hypochromasia 1+ Erythrocyte Sedimentation Rate 90 MM/HR (0-20) H Sodium Level 144 MMOL/L (136-145) Potassium Level 4.8 MMOL/L (3.5-5.1) Chloride Level 107 MMOL/L (98-107) Carbon Dioxide Level 28 MMOL/L (21-32) Anion Gap 9 mmol/L (5-15) Blood Urea Nitrogen 47 mg/dL (7-18) H Creatinine 1.1 MG/DL (0.55-1.30) Estimat Glomerular Filtration Rate > 60 mL/min (>60) Glucose Level 171 MG/DL (74-106) H Calcium Level 8.9 MG/DL (8.5-10.1) Phosphorus Level 2.3 MG/DL (2.5-4.9) L Magnesium Level 1.9 MG/DL (1.8-2.4) Total Bilirubin 0.3 MG/DL (0.2-1.0) Aspartate Amino Transf (AST/SGOT) 54 U/L (15-37) H Alanine Aminotransferase (ALT/SGPT) 70 U/L (12-78) Alkaline Phosphatase 71 U/L (46-116) C-Reactive Protein, Quantitative 2.2 mg/dL (0.00-0.90) H Total Protein 5.9 G/DL (6.4-8.2) L Albumin 2.2 G/DL (3.4-5.0) L Globulin 3.7 g/dL Albumin/Globulin Ratio 0.6 (1.0-2.7) L Intake and Output 12/06/19 12/07/19 19:00 07:00 Intake Total 250 ml Output Total 900 ml Balance -650 ml Intake Free Water 250 ml Output Urine Total 900 ml # Voids 3 1 Objective GENERAL: open eyes more responsive, cachectic, chronic ill appearing. HEENT: Pupils equal and reactive to light, anicteric, NG tube. NECK: Supple. No JVD. LUNGS: Fair bilateral air entry. No wheezing, rhonchi. Decreased air in the bases. HEART: S1, S2. Distant heart sounds. No murmur or gallop. ABDOMEN: Soft, nondistended, nontender. No rebound tenderness. No fluid shift. EXTREMITIES: No cyanosis, clubbing, or edema. Muscle atrophy to bilateral lower extremities noted. NEUROLOGIC: Cranial nerves II to XII grossly intact, motor right side is weaker than left side. RECTAL/GENITOURINARY: Refused and deferred PSYCHIATRIC: Mood and affect unable to obtain secondary to the patient's status. Assessment/Plan Assessment/Plan ASSESSMENT: 1. Acute encephalopathy, most likely secondary to toxic metabolic encephalopathy as well as acute CVA. 2. Acute ESBL Klebsiella urinary tract infection. 3. Diabetes type 2. 4. Acute kidney injury, on chronic renal insufficiency. 5. Multifocal infarction, confirmed on MRI. 6. Hypertension. 7. Dyslipidemia. 8. Colon cancer, status post resection. 9. Alzheimer dementia. 10. History of fall with subdural hematoma, resolved. 11. Severe protein-calorie malnutrition. 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 PLAN: In telemetry. Follow up with laboratory and culture. Abx: Meropenem. ID consultation, Dr. Lopez, pulmonary consultation, Dr. Vera, Cardiology consultation with Dr. Beka Saleh, Nephrology consultation with Dr. Vin Otero. Code status: Full code. DVT prophylaxis: Eliquis. Tolerated Tube feeding @ 50 cc/hr. Bedside swallow study. Darren Spencer MD Dec 07, 2019 16:00
--- NOTE | 2019-12-07 16:44 | Pulmonology Progress Note ---
Subjective ROS Limited/Unobtainable: No Constitutional: Reports: no symptoms HEENT: Repors: no symptoms Allergies: Coded Allergies: ATENOLOL (Verified Allergy, Unknown, 05/23/16) LOSARTAN (Verified Allergy, Unknown, 05/23/16) SIMVASTATIN (Verified Allergy, Unknown, 05/23/16) Uncoded Allergies: AMLIODIPINE (Allergy, Unknown, 05/23/16) PENICILLIN (Allergy, Unknown, 12/03/19) Tolerated Ceftriaxone on 12/02/19 Objective Last 24 Hour Vital Signs Date Time Temp Pulse Resp B/P (MAP) Pulse Ox O2 Delivery O2 Flow Rate FiO2 12/07/19 12:00 87 12/07/19 12:00 98.1 84 18 113/62 (79) 95 12/07/19 09:00 Room Air 12/07/19 08:43 78 16 94 Room Air 21 12/07/19 08:00 86 12/07/19 08:00 96.7 81 19 136/67 (90) 98 12/07/19 04:00 97.8 80 19 120/62 (81) 96 12/07/19 04:00 82 12/07/19 00:00 76 12/07/19 00:00 97.8 89 18 118/65 (82) 97 12/06/19 20:00 97.9 91 20 116/60 (78) 96 12/06/19 20:00 69 Intake and Output 12/06/19 12/07/19 19:00 07:00 Intake Total 250 ml Output Total 900 ml Balance -650 ml Intake Free Water 250 ml Output Urine Total 900 ml # Voids 3 1 General Appearance: cachetic HEENT: normocephalic, atraumatic Respiratory: chest wall non-tender, lungs clear Cardiovascular: normal peripheral pulses Abdomen: normal bowel sounds, soft, non tender Extremities: no cyanosis Skin: no ulcers Neurologic: no motor/sensory deficits Laboratory Tests 12/07/19 07:48: White Blood Count 9.5, Red Blood Count 3.59L, Hemoglobin 9.7L, Hematocrit 30.9L , Mean Corpuscular Volume 86, Mean Corpuscular Hemoglobin 27.0, Mean Corpuscular Hemoglobin Concent 31.3L, Red Cell Distribution Width 13.1, Platelet Count 286, Mean Platelet Volume 5.3L, Neutrophils (%) (Auto) , Lymphocytes (%) (Auto) , Monocytes (%) (Auto) , Eosinophils (%) (Auto) , Basophils (%) (Auto) , Differential Total Cells Counted 100, Neutrophils % ( Manual) 86H, Lymphocytes % (Manual) 9L, Monocytes % (Manual) 4, Eosinophils % ( Manual) 1, Basophils % (Manual) 0, Band Neutrophils 0, Platelet Estimate Adequate, Platelet Morphology Normal, Hypochromasia 1+, Erythrocyte Sedimentation Rate 90H, Sodium Level 144, Potassium Level 4.8, Chloride Level 107, Carbon Dioxide Level 28, Anion Gap 9, Blood Urea Nitrogen 47H, Creatinine 1.1, Estimat Glomerular Filtration Rate > 60, Glucose Level 171H, Calcium Level 8.9, Phosphorus Level 2.3L, Magnesium Level 1.9, Total Bilirubin 0.3, Aspartate Amino Transf (AST/SGOT) 54H, Alanine Aminotransferase (ALT/SGPT) 70, Alkaline Phosphatase 71, C-Reactive Protein, Quantitative 2.2H, Total Protein 5.9L, Albumin 2.2L, Globulin 3.7, Albumin/Globulin Ratio 0.6L Current Medications Medications (Trade) Dose Ordered Sig/James Route PRN Reason Start Time Stop Time Status Last Admin Dose Admin Acetaminophen (Tylenol) 650 mg Q4H PRN ORAL fever 12/03/19 18:48 01/02/20 18:47 Albuterol/ Ipratropium (Albuterol/ Ipratropium) 3 ml Q4H PRN HHN Shortness of Breath 12/03/19 19:15 12/07/19 19:14 Apixaban (Eliquis) 2.5 mg BID ORAL 12/05/19 09:00 03/04/20 08:59 12/07/19 08:43 Clonidine HCl (Catapres Tab) 0.1 mg Q4H PRN ORAL For High Blood Pressure 12/03/19 19:15 03/01/20 19:14 Dextrose (Dextrose 50%) 25 ml Q30M PRN IV Hypoglycemia 12/03/19 18:45 03/01/20 19:14 Dextrose (Dextrose 50%) 50 ml Q30M PRN IV Hypoglycemia 12/03/19 18:45 03/01/20 19:14 Escitalopram Oxalate (Lexapro) 10 mg DAILY ORAL 12/04/19 09:00 01/02/20 08:59 12/07/19 08:43 Folic Acid (Folate) 2 mg DAILY NG 12/05/19 09:00 01/04/20 08:59 12/07/19 08:43 Insulin Aspart (NovoLOG) BEFORE MEALS AND HS SUBQ 12/03/19 21:00 03/01/20 20:59 12/07/19 11:45 Meropenem 500 mg/ Sodium Chloride 55 ml @ 110 mls/hr Q12HR@0300,1500 IVPB 12/04/19 03:00 12/08/19 14:59 12/07/19 15:13 Nitroglycerin (Ntg) 0.4 mg Q5M X 3 DOSES PRN SL Prn Chest Pain 12/03/19 18:45 01/01/20 19:14 Ondansetron HCl (Zofran) 4 mg Q6H PRN IVP Nausea & Vomiting 12/03/19 19:15 01/01/20 19:14 Polyethylene Glycol (Miralax) 17 gm BEDTIME ORAL 12/06/19 21:00 01/05/20 20:59 12/06/19 21:00 Promethazine HCl/ Codeine (Phenergan with Codeine) 5 ml Q4H PRN ORAL For Cough 12/03/19 19:15 01/01/20 19:14 Temazepam (Restoril) 15 mg HSPRN PRN ORAL Insomnia 12/03/19 19:15 12/09/19 19:14 Assessment/Plan Problems: (1) Altered level of consciousness (2) UTI (urinary tract infection) (3) Severe protein-calorie malnutrition (4) History of diabetes mellitus (5) History of hypertension (6) Alzheimer's dementia (7) Unilateral weakness (8) Subdural hematoma (9) Colon cancer Assessment/Plan looks comfortable Urine has GNB, MDR Klebsiella Abx as per ID Meropenem and Vancomycin f/u electrolytes swallow study swallow evaluation pending Neurology note appreciated Cherelle Vera MD Dec 07, 2019 16:44
--- NOTE | 2019-12-07 19:19 | NUR ---
NURSE HAND-OFF REPORT: Important Events on Shift:[] Patient Status: [] Diet: [] Pending Orders: [] Pending Results/Labs:[] Pending MD notification:[] Latest Vital Signs: Temperature 96.6 , Pulse 81 , B/P 127 /61 , Respiratory Rate 20 , O2 SAT 96 , Room Air, O2 Flow Rate . Vital Sign Comment: [] EKG Rhythm: Sinus Rhythm Rhythm change?: Y MD Notified?: N -Dr Delfino RUFFIN Response: Latest Zhang Fall Score: 50 Fall Risk: High Risk Safety Measures: Call light Within Reach, Bed Alarm Zone 2, Side Rails Side Rails x3, Bed position Low and Locked. Fall Precautions: Yellow Socks Yellow Gown Report given to [ELLI Butterfield].
--- NOTE | 2019-12-07 19:30 | NUR ---
NURSE NOTES: Received report from ELLI Schrader. Patient is alert and oriented x 1. No SOB or distress. alarm security or surveillance monitor intact. Bed at lowest position locked with side rails up. HOB elevated for aspiration precautions. NG tube intact no aspiration noted. Tolerated well today per Nurse Macrina. Will continue with plan of care.
--- NOTE | 2019-12-07 19:40 | Cardiology Progress Note ---
Assessment/Plan Assessment/Plan multi-stroke dementia encephalopathy, UTI, cachexia, malnutrition, NG tube. hemodynamically stable, Subjective Subjective more alert today, but still confused, does not respond to questions Objective Last 24 Hour Vital Signs Date Time Temp Pulse Resp B/P (MAP) Pulse Ox O2 Delivery O2 Flow Rate FiO2 12/07/19 16:00 81 12/07/19 16:00 96.6 81 20 127/61 (83) 96 12/07/19 12:00 87 12/07/19 12:00 98.1 84 18 113/62 (79) 95 12/07/19 09:00 Room Air 12/07/19 08:43 78 16 94 Room Air 21 12/07/19 08:00 86 12/07/19 08:00 96.7 81 19 136/67 (90) 98 12/07/19 04:00 97.8 80 19 120/62 (81) 96 12/07/19 04:00 82 12/07/19 00:00 76 12/07/19 00:00 97.8 89 18 118/65 (82) 97 12/06/19 20:00 97.9 91 20 116/60 (78) 96 12/06/19 20:00 69 General Appearance: other - frail and cachectic EENT: other Neck: no JVD Rhythm: NSR Cardiovascular: regular rhythm Respiratory/Chest: no respiratory distress Abdomen: soft Intake and Output 12/06/19 12/07/19 19:00 07:00 Intake Total 305 ml Output Total 900 ml Balance -595 ml Intake Free Water 250 ml Tube Feeding 55 ml Output Urine Total 900 ml # Voids 3 1 Laboratory Tests Test 12/07/19 07:48 White Blood Count 9.5 K/UL (4.8-10.8) Red Blood Count 3.59 M/UL (4.70-6.10) L Hemoglobin 9.7 G/DL (14.2-18.0) L Hematocrit 30.9 % (42.0-52.0) L Mean Corpuscular Volume 86 FL (80-99) Mean Corpuscular Hemoglobin 27.0 PG (27.0-31.0) Mean Corpuscular Hemoglobin Concent 31.3 G/DL (32.0-36.0) L Red Cell Distribution Width 13.1 % (11.6-14.8) Platelet Count 286 K/UL (150-450) Mean Platelet Volume 5.3 FL (6.5-10.1) L Neutrophils (%) (Auto) % (45.0-75.0) Lymphocytes (%) (Auto) % (20.0-45.0) Monocytes (%) (Auto) % (1.0-10.0) Eosinophils (%) (Auto) % (0.0-3.0) Basophils (%) (Auto) % (0.0-2.0) Differential Total Cells Counted 100 Neutrophils % (Manual) 86 % (45-75) H Lymphocytes % (Manual) 9 % (20-45) L Monocytes % (Manual) 4 % (1-10) Eosinophils % (Manual) 1 % (0-3) Basophils % (Manual) 0 % (0-2) Band Neutrophils 0 % (0-8) Platelet Estimate Adequate Platelet Morphology Normal Hypochromasia 1+ Erythrocyte Sedimentation Rate 90 MM/HR (0-20) H Sodium Level 144 MMOL/L (136-145) Potassium Level 4.8 MMOL/L (3.5-5.1) Chloride Level 107 MMOL/L (98-107) Carbon Dioxide Level 28 MMOL/L (21-32) Anion Gap 9 mmol/L (5-15) Blood Urea Nitrogen 47 mg/dL (7-18) H Creatinine 1.1 MG/DL (0.55-1.30) Estimat Glomerular Filtration Rate > 60 mL/min (>60) Glucose Level 171 MG/DL (74-106) H Calcium Level 8.9 MG/DL (8.5-10.1) Phosphorus Level 2.3 MG/DL (2.5-4.9) L Magnesium Level 1.9 MG/DL (1.8-2.4) Total Bilirubin 0.3 MG/DL (0.2-1.0) Aspartate Amino Transf (AST/SGOT) 54 U/L (15-37) H Alanine Aminotransferase (ALT/SGPT) 70 U/L (12-78) Alkaline Phosphatase 71 U/L (46-116) C-Reactive Protein, Quantitative 2.2 mg/dL (0.00-0.90) H Total Protein 5.9 G/DL (6.4-8.2) L Albumin 2.2 G/DL (3.4-5.0) L Globulin 3.7 g/dL Albumin/Globulin Ratio 0.6 (1.0-2.7) L Marlena Almazan MD Dec 07, 2019 19:40
[2019-12-07 20:00] VITALS: BP 127/61
[2019-12-07] MEDS: Miralax 17gm pkt ORAL SCH (21:00)
[2019-12-08] VITALS: BP 151/74
[2019-12-08] MEDS: Meropenem 500 MG in NS 55 ML IVPB SCH ×2 (03:00→14:32)
[2019-12-08 04:00] VITALS: BP 140/71
[2019-12-08] MEDS: NovoLOG Insulin Flexpen SUBQ SCH ×4 (06:26→21:00)
--- NOTE | 2019-12-08 07:40 | NUR ---
NURSE HAND-OFF REPORT: Important Events on Shift:[None] Patient Status: [Stable] Diet: [NG tube feeding Glucerna 1.2] Pending Orders: [] Pending Results/Labs:[] Pending MD notification:[] Latest Vital Signs: Temperature 97.5 , Pulse 83 , B/P 140 /71 , Respiratory Rate 20 , O2 SAT 96 , Room Air, O2 Flow Rate . Vital Sign Comment: [] EKG Rhythm: Sinus Rhythm Rhythm change?: Y Notified?: N -Dr Delfino RUFFIN Response: Latest Zhang Fall Score: 50 Fall Risk: High Risk Safety Measures: Call light Within Reach, Bed Alarm Zone 2, Side Rails Side Rails x3, Bed position Low and Locked. Fall Precautions: Yellow Socks Yellow Gown Report given to [ELLI Clark].
--- NOTE | 2019-12-08 07:52 | NUR ---
NURSE NOTES: Received pt in bed, AAO x 1. On RA. IV on LFA 22g noted, with SL. NGT noted, running glucerna 1.2 @ 55 ml/hr. FC noted, draining via gravity. Bilateral soft wrist restraint noted. Pulse present. Side rails x 2. Bed in the lowest, locked, and alarm on. Call light within reach. Will continue to monitor
[2019-12-08 08:00] VITALS: BP 142/75
--- NOTE | 2019-12-08 09:31 | Infectious Diseases Prog Note ---
Assessment/Plan Assessment: COVID19 neg x1 (12/01 rapid COVID PCR neg) UTI -u/a wbc tnct, nit neg, leuk +3; ucx >100k ESBL K. pna Afebrile Leukocytosis; SP -Bcx NTD Probable PNA -12/01 CXR: Obscured left hemidiaphragm, could indicate pleural fluid and/ orparenchymal consolidation/atelectasis. Correlate with clinical findings Acute encephalopathy/facial droop- Multifocal infarcts -12/01 Brain MRI wo: Multifocal infarcts the largest of which are located within the norberto left of midline as well as the left frontal lobe medially. Multifocal lacunar infarcts are noted scattered bilaterally including the cerebellar hemispheres and the left cerebellar peduncle. Age-related changes. CT head wo: Age-related atrophy and small vessel disease of aging, similar to that noted on the previous study. No acute intracranial pathology. If there is concern for etiology such as early acute lacunar infarcts, magnetic resonance imaging of the brain with diffusion-weighted sequences should be performed for follow-up FRANKY on CKD, worsened, now improvnig -REnal US: Small kidneys bilaterally. No evidence of hydronephrosis. Empty bladder with a Vela catheter. Incidental finding left renal cyst. Dm2 HTN HLD colon CA sp treatment Alzheimer's dementia fall w/ resultant [facility] resident ([facility]) Plan: -Meropenem #6/7 for ESBL UTI -12/08/19 SP Vancomycin #4 -12/02 Sp Aztreonam #1 -12/01 SP Ceftriaxone x1 -f/u cx -Monitor CBC/CMP, temperatures -aspiration precautions Thank you for this consultation. Will continue to follow along with you. Discussed with RN. Subjective Allergies: Coded Allergies: ATENOLOL (Verified Allergy, Unknown, 05/23/16) LOSARTAN (Verified Allergy, Unknown, 05/23/16) SIMVASTATIN (Verified Allergy, Unknown, 05/23/16) Uncoded Allergies: AMLIODIPINE (Allergy, Unknown, 05/23/16) PENICILLIN (Allergy, Unknown, 12/03/19) Tolerated Ceftriaxone on 12/02/19 Afebrile Satting well on RA No Leukocytosis CHUY Objective Last 24 Hour Vital Signs Date Time Temp Pulse Resp B/P (MAP) Pulse Ox O2 Delivery O2 Flow Rate FiO2 12/08/19 08:35 Room Air 12/08/19 08:00 98.3 78 20 142/75 (97) 97 12/08/19 04:00 83 12/08/19 04:00 97.5 78 20 140/71 (94) 96 12/08/19 00:00 76 12/08/19 00:00 98.1 79 20 151/74 (99) 97 12/07/19 20:00 76 12/07/19 20:00 96.6 81 20 127/61 (83) 96 12/07/19 16:00 81 12/07/19 16:00 96.6 81 20 127/61 (83) 96 12/07/19 12:00 87 12/07/19 12:00 98.1 84 18 113/62 (79) 95 Height (Feet): 5 Height (Inches): 6.00 Weight (Pounds): 86 GEN: NAD on RA HEENT: NCAT, MMM, EOMI Pulm: Equal chest rise and fall B/L, NO accessory muscle use ABD: Soft, ND Laboratory Tests Test 12/08/19 03:00 Stool Occult Blood Pending Current Medications Medications (Trade) Dose Ordered Sig/James Route PRN Reason Start Time Stop Time Status Last Admin Dose Admin Acetaminophen (Tylenol) 650 mg Q4H PRN ORAL fever 12/03/19 18:48 01/02/20 18:47 Apixaban (Eliquis) 2.5 mg BID ORAL 12/05/19 09:00 03/04/20 08:59 12/07/19 17:56 Clonidine HCl (Catapres Tab) 0.1 mg Q4H PRN ORAL For High Blood Pressure 12/03/19 19:15 03/01/20 19:14 Dextrose (Dextrose 50%) 25 ml Q30M PRN IV Hypoglycemia 12/03/19 18:45 03/01/20 19:14 Dextrose (Dextrose 50%) 50 ml Q30M PRN IV Hypoglycemia 12/03/19 18:45 03/01/20 19:14 Escitalopram Oxalate (Lexapro) 10 mg DAILY ORAL 12/04/19 09:00 01/02/20 08:59 12/07/19 08:43 Folic Acid (Folate) 2 mg DAILY NG 12/05/19 09:00 01/04/20 08:59 12/07/19 08:43 Insulin Aspart (NovoLOG) BEFORE MEALS AND HS SUBQ 12/03/19 21:00 03/01/20 20:59 12/08/19 06:26 Meropenem 500 mg/ Sodium Chloride 55 ml @ 110 mls/hr Q12HR@0300,1500 IVPB 12/04/19 03:00 12/09/19 23:59 12/08/19 03:00 Nitroglycerin (Ntg) 0.4 mg Q5M X 3 DOSES PRN SL Prn Chest Pain 12/03/19 18:45 01/01/20 19:14 Ondansetron HCl (Zofran) 4 mg Q6H PRN IVP Nausea & Vomiting 12/03/19 19:15 01/01/20 19:14 Polyethylene Glycol (Miralax) 17 gm BEDTIME ORAL 12/06/19 21:00 01/05/20 20:59 12/07/19 21:00 Promethazine HCl/ Codeine (Phenergan with Codeine) 5 ml Q4H PRN ORAL For Cough 12/03/19 19:15 01/01/20 19:14 Temazepam (Restoril) 15 mg HSPRN PRN ORAL Insomnia 12/03/19 19:15 12/09/19 19:14 Bang Rogers MD Dec 08, 2019 09:31
[2019-12-08] MEDS: Eliquis 2.5mg tablet ORAL SCH ×2 (09:39→17:34)
--- NOTE | 2019-12-08 10:03 | General Progress Note ---
Assessment/Plan Assessment/Plan: anemia AMS dysphagia DM h/o colon ca RI NGTF may need PEG anemia work up fu labs Subjective ROS Limited/Unobtainable: No Allergies: Coded Allergies: ATENOLOL (Verified Allergy, Unknown, 05/23/16) LOSARTAN (Verified Allergy, Unknown, 05/23/16) SIMVASTATIN (Verified Allergy, Unknown, 05/23/16) Uncoded Allergies: AMLIODIPINE (Allergy, Unknown, 05/23/16) PENICILLIN (Allergy, Unknown, 12/03/19) Tolerated Ceftriaxone on 12/02/19 Objective Last 24 Hour Vital Signs Date Time Temp Pulse Resp B/P (MAP) Pulse Ox O2 Delivery O2 Flow Rate FiO2 12/08/19 08:35 Room Air 12/08/19 08:00 98.3 78 20 142/75 (97) 97 12/08/19 04:00 83 12/08/19 04:00 97.5 78 20 140/71 (94) 96 12/08/19 00:00 76 12/08/19 00:00 98.1 79 20 151/74 (99) 97 12/07/19 20:00 76 12/07/19 20:00 96.6 81 20 127/61 (83) 96 12/07/19 16:00 81 12/07/19 16:00 96.6 81 20 127/61 (83) 96 12/07/19 12:00 87 12/07/19 12:00 98.1 84 18 113/62 (79) 95 Intake and Output 12/07/19 12/08/19 19:00 07:00 Intake Total 605 ml 55 ml Balance 605 ml 55 ml Tube Feeding 605 ml 55 ml Laboratory Tests 12/08/19 03:00: Stool Occult Blood [Pending] Height (Feet): 5 Height (Inches): 6.00 Weight (Pounds): 86 General Appearance: no apparent distress EENT: normal ENT inspection Neck: supple Cardiovascular: normal rate Respiratory/Chest: decreased breath sounds Abdomen: normal bowel sounds, non tender, soft Extremities: non-tender Mamadou Johnson MD Dec 08, 2019 10:03
--- NOTE | 2019-12-08 10:45 | Nephrology Progress Note ---
Assessment/Plan Problem List: (1) FRANKY (acute kidney injury) (2) Anemia (3) Severe protein-calorie malnutrition (4) Alzheimer's dementia (5) UTI (urinary tract infection) (6) Acute dehydration Assessment Acute on chronic renal failure. Previous admission patient was discharged on serum creatinine of 1.6. Severe malnutrition. Encephalopathy toxic metabolic. Evidence of UTI. Multi-infarct brain disease. Diabetes mellitus Hypertension History of colon cancer Alzheimer's [facility] resident Full code Plan December 07 no chemistry panel done today. Will check labs tomorrow. Stable from renal standpoint of view December 06: Renal parameters stable. DC IV fluid. Continue per consultants. December 05: Renal parameters improving. Continue IV fluid. Continue to monitor renal parameters and electrolytes. Medication list reviewed. Abnormal electrolyte addressed. December 04: Serum creatinine improving. IV fluid changed to D5W 30 cc an hour. Feeding through NG tube is in process. Continue to monitor electrolytes and renal parameters. December 03: Late note entry due to system problem at the [facility] today. Serum creatinine improving. Folic acid supplement given. Continue to monitor renal parameters Slow hydrate Monitor renal parameters urine output Antibiotics Avoid nephrotoxic's Per consultants Improve nutritional status as possible Subjective ROS Limited/Unobtainable: Yes Objective Objective Last 24 Hour Vital Signs Date Time Temp Pulse Resp B/P (MAP) Pulse Ox O2 Delivery O2 Flow Rate FiO2 12/08/19 08:35 Room Air 12/08/19 08:00 98.3 78 20 142/75 (97) 97 12/08/19 08:00 75 12/08/19 04:00 83 12/08/19 04:00 97.5 78 20 140/71 (94) 96 12/08/19 00:00 76 12/08/19 00:00 98.1 79 20 151/74 (99) 97 12/07/19 20:00 76 12/07/19 20:00 96.6 81 20 127/61 (83) 96 12/07/19 16:00 81 12/07/19 16:00 96.6 81 20 127/61 (83) 96 12/07/19 12:00 87 12/07/19 12:00 98.1 84 18 113/62 (79) 95 Intake and Output 12/07/19 12/08/19 19:00 07:00 Intake Total 605 ml 55 ml Balance 605 ml 55 ml Tube Feeding 605 ml 55 ml No chemistry panel today laboratory Tests 12/08/19 03:00: Stool Occult Blood [Pending] Height (Feet): 5 Height (Inches): 6.00 Weight (Pounds): 86 General Appearance: no apparent distress EENT: other - Has NG tube Cardiovascular: normal rate Respiratory/Chest: decreased breath sounds Abdomen: soft Vin Otero MD Dec 08, 2019 10:45
[2019-12-08 12:00] VITALS: BP 131/64
--- NOTE | 2019-12-08 12:19 | Surgery Progress Note ---
Surgery Progress Note Subjective Additional Comments kukb noted ng needs positioning Objective Last 24 Hour Vital Signs Date Time Temp Pulse Resp B/P (MAP) Pulse Ox O2 Delivery O2 Flow Rate FiO2 12/08/19 08:35 Room Air 12/08/19 08:00 98.3 78 20 142/75 (97) 97 12/08/19 08:00 75 12/08/19 04:00 83 12/08/19 04:00 97.5 78 20 140/71 (94) 96 12/08/19 00:00 76 12/08/19 00:00 98.1 79 20 151/74 (99) 97 12/07/19 20:00 76 12/07/19 20:00 96.6 81 20 127/61 (83) 96 12/07/19 16:00 81 12/07/19 16:00 96.6 81 20 127/61 (83) 96 I&O Intake and Output 12/07/19 12/08/19 19:00 07:00 Intake Total 605 ml 55 ml Balance 605 ml 55 ml Tube Feeding 605 ml 55 ml Dressing: other Wound: other Cardiovascular: RSR Respiratory: decreased breath sounds Abdomen: soft, non-tender, present bowel sounds Extremities: no tenderness, no cyanosis, other Laboratory Tests Test 12/08/19 03:00 Stool Occult Blood Pending Plan Problems: (1) History of diabetes mellitus (2) History of hypertension (3) Alzheimer's dementia (4) UTI (urinary tract infection) (5) Unilateral weakness (6) Acute dehydration (7) Altered level of consciousness (8) Subdural hematoma (9) Colon cancer (10) Severe protein-calorie malnutrition Assessment & Plan: DAILY ESTIMATED NEEDS: Needs based on Underweight, wasting, wound 40kg 30-35 kcals/kg 8687-9024 total kcals 1.25-2 g protein/kg 50-80 g total protein 25-30ml/kcal mL/kg 2216-4626 total fluid mLs NUTRITION DIAGNOSIS: Increased kcal and pro needs r/t underweight status as evidenced by low BMI, moderate to severe generalized wasting, w/ multiple areas of skin compromise, DTI x4. CURRENT DIET: NPO ENTERAL NUTRITION RECOMMENDATIONS: Glucerna 1.2 goal of 45ml/hr x24 hrs to provide 1080ml, 1296 kcal, 65g pro, 869ml free h2O - Obtain GI access, initiate Glucerna 1.2 @25ml/hr for 6 hrs - Advance as tolerated 10ml/hr q4-6 hrs to goal - Flush per MD/ HOB over 30 degrees ------ ADDITIONAL RECOMMENDATIONS: 1) W/ poor po intake, add Ensure TID -> not appropriate for oral po W/ elevated BG rec Glucerna TID-> not appropriate for oral po 2) Add FRANCISCA BID -> f/up w WC eval 3) SENIOR QA TESTER eval for texture, need for non oral feeds-> S/p SENIOR QA TESTER eval, not appropriate for oral diet, TF recs as above 4) Calibrated bed scale wts daily 5) Monitor lytes w/ TF, replete as needed ACUTE: ALOC x2 days with right side paralysis, CVA, intracranial bleed, seizure , postictal state, major electrolyte abnormality, severe sepsis, Acute dehydration. H/O: subdural hematoma, colon cancer status post treatment, HTN, Syncope and collapse, anemia, DM2, Alzheimer Dementia, CKD, severe protein-calorie malnutrition, hyperlipidemia, vitamin B12 deficiency, muscle wasting, lack of coordination. POLST: Not in chart. RELEVANT MEDS: Albuterol (SOB); Zofran (Nausea); Restoril (insomnia). VITALS ON 2L NASAL CANNULA: HR: 67; RR: 19; SP02 100% PLOF: Pt consumed mechanical soft with thin liquids [facility] at [facility]. Pt seen at bedside appears frail and weak. Pt able to open eye to verbal communication. Pt noted with copious, thick phlegm and debris in BOT and throughout oral cavity. Pt provided oral moisturizer and thorough oral care with Yankauer suction, removing thick phlegm, mildly improved verbal communication s/p oral care. Pt able to nod head yes when asked if Pt gets thickened liquids. 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 Pt given PO trial of nectar thick liquid teaspoons. Oral phase characterized by functional labial seal, poor bolus control resulting in suspected premature posterior spillage and subsequent suspected silent aspiration given laryngeal elevation was not well appreciated upon palpation despite verbal and tactile cues to Pt's larynx to initiate swallow; no swallow initiated. Pt did not cough or attempt to clear trial. Pt was able to eventually initiate a swallow with a 20 second delay, laryngeal elevation incomplete in feel upon palpation. Pt is a high risk for silent aspiration, would benefit from MBSS in future ( will monitor Pt's candidacy, not appropriate to participate in MBSS at this time ). RECOMMENDATIONS: 1. NPO with nutrition, hydration, and meds via NGT (12 Romansh). 2. Please provide oral care BID 3. Dysphagia therapy 3-5x per week x1 week. 4. Will monitor Pts appropriateness to participate in MBSS. 5. Pt would benefit from Speech, Language, and Cognitive communication evaluation given s/p lacunar infarcts. (11) Decubitus skin ulcer Assessment & Plan: Pt presented on admission with multiple Pressure injuries. Reabsorbing DTPI L Elbow. Base of Pressure Injury is dry and black centrally with maroon borders(L)2cm x (W)1.5cm. DTPI Sacrum (L)9.5cm x (W)11.5cm. Base of Pressure Injury is indurated purpuric with surrounding maroon borders. Pt verbalized tenderness when affected site minimally palpated. DTPI R Ischium(L)8cm x (W)9.5cm. Base of pressure injury is purpuric with maroon borders. Tender when minimally palpated. DTPI L trochanter(L)4cm x (W)3.2cm. Base of injury is purpuric with surrounding Maroon borders. Tender when minimally palpated. DTPI L Ischium (L)7cm x (W)5.4cm.Base of Injury is black with marginal erythema . Tender when minimally palpated. R Heel is boggy with non-blanchable erythema (L)3cm x (W)3.5cm. L Heel is boggy with non-Blanchable erythema(L)5cm x (W)3.5cm. L 1st metatarsal erythematous,tip is fluctuant. Pt complained tender when minimally palpated. No elevation in skin temp noted. Dry scab noted to dorsal L 2nd metatarsal. Tx.Plan: Apply Moisture Barrier Paste to Sacrum and bilat ischial tuberosities. Cover each site with Optifoam drsgs. Change every 3 days and prn. Apply Cavilon Skin Barrier to R and L trochanter. Cover each site with Optifoam drsgs. Change every 7 days and prn Apply Cavilon Skin Barrier to L and R elbows. Cover each site with Optifoam drsgs. Change every 7 days and prn. Apply Cavilon Skin Barrier to both heels and Malleoli. Cover each site with Optifoam drsgs. Change every 7 days and prn. Apply Cavilon Skin Barrier to bony prominences and cover with Optifoam drsgs as needed. Reposition at least every 2hours or as tolerated. Off-load heels with pillow. APM/KARTHIK Mattress overlay. Patel Merrill Dec 08, 2019 12:19
[2019-12-08] MEDS ORDERED: Varibar Honey 250ml MC PRN (14:00)
[2019-12-08] MEDS ORDERED: Varibar Nectar 240ml MC PRN (14:00)
[2019-12-08] MEDS ORDERED: Varibar Pudding 230ml MC PRN (14:00)
[2019-12-08] MEDS ORDERED: Varibar Thin Liquid powder 148gm MC PRN (14:00)
--- NOTE | 2019-12-08 14:03 | Internal Med Progress Note ---
Subjective Physician Name Darren Spencer Attending Physician Darren Spencer MD Current Medications Medications (Trade) Dose Ordered Sig/James Route PRN Reason Start Time Stop Time Status Last Admin Dose Admin Acetaminophen (Tylenol) 650 mg Q4H PRN ORAL fever 12/03/19 18:48 01/02/20 18:47 Apixaban (Eliquis) 2.5 mg BID ORAL 12/05/19 09:00 03/04/20 08:59 12/08/19 09:39 Barium Sulfate (Varibar Honey) 250 ml NOW PRN MC RAD 12/08/19 14:00 12/11/19 13:57 Barium Sulfate (Varibar [place]) 240 ml NOW PRN MC RAD 12/08/19 14:00 12/11/19 13:57 Barium Sulfate (Varibar Pudding) 230 ml NOW PRN MC RAD 12/08/19 14:00 12/11/19 13:57 Barium Sulfate (Varibar Thin Liquid powder) 148 gm NOW PRN MC RAD 12/08/19 14:00 12/11/19 13:57 Clonidine HCl (Catapres Tab) 0.1 mg Q4H PRN ORAL For High Blood Pressure 12/03/19 19:15 03/01/20 19:14 Dextrose (Dextrose 50%) 25 ml Q30M PRN IV Hypoglycemia 12/03/19 18:45 03/01/20 19:14 Dextrose (Dextrose 50%) 50 ml Q30M PRN IV Hypoglycemia 12/03/19 18:45 03/01/20 19:14 Escitalopram Oxalate (Lexapro) 10 mg DAILY ORAL 12/04/19 09:00 01/02/20 08:59 12/08/19 09:39 Folic Acid (Folate) 2 mg DAILY NG 12/05/19 09:00 01/04/20 08:59 12/08/19 09:39 Insulin Aspart (NovoLOG) BEFORE MEALS AND HS SUBQ 12/03/19 21:00 03/01/20 20:59 12/08/19 11:37 Meropenem 500 mg/ Sodium Chloride 55 ml @ 110 mls/hr Q12HR@0300,1500 IVPB 12/04/19 03:00 12/09/19 23:59 12/08/19 03:00 Nitroglycerin (Ntg) 0.4 mg Q5M X 3 DOSES PRN SL Prn Chest Pain 12/03/19 18:45 01/01/20 19:14 Ondansetron HCl (Zofran) 4 mg Q6H PRN IVP Nausea & Vomiting 12/03/19 19:15 01/01/20 19:14 Polyethylene Glycol (Miralax) 17 gm BEDTIME ORAL 12/06/19 21:00 01/05/20 20:59 12/07/19 21:00 Promethazine HCl/ Codeine (Phenergan with Codeine) 5 ml Q4H PRN ORAL For Cough 12/03/19 19:15 01/01/20 19:14 Temazepam (Restoril) 15 mg HSPRN PRN ORAL Insomnia 12/03/19 19:15 12/09/19 19:14 Allergies: Coded Allergies: ATENOLOL (Verified Allergy, Unknown, 05/23/16) LOSARTAN (Verified Allergy, Unknown, 05/23/16) SIMVASTATIN (Verified Allergy, Unknown, 05/23/16) Uncoded Allergies: AMLIODIPINE (Allergy, Unknown, 05/23/16) PENICILLIN (Allergy, Unknown, 12/03/19) Tolerated Ceftriaxone on 12/02/19 Subjective Awake, more responsive, open eyes, calm. Objective Last Vital Signs Date Time Temp Pulse Resp B/P (MAP) Pulse Ox O2 Delivery O2 Flow Rate FiO2 12/08/19 12:00 98.8 84 12 131/64 (86) 98 12/08/19 08:35 Room Air 12/07/19 08:43 21 Laboratory Tests Test 12/08/19 03:00 Stool Occult Blood Negative (NEGATIVE) Intake and Output 12/07/19 12/08/19 19:00 07:00 Intake Total 605 ml 55 ml Balance 605 ml 55 ml Tube Feeding 605 ml 55 ml Objective GENERAL: open eyes more responsive, cachectic, chronic ill appearing. HEENT: Pupils equal and reactive to light, anicteric, NG tube. NECK: Supple. No JVD. LUNGS: Fair bilateral air entry. No wheezing, rhonchi. Decreased air in the bases. HEART: S1, S2. Distant heart sounds. No murmur or gallop. ABDOMEN: Soft, nondistended, nontender. No rebound tenderness. No fluid shift. : Vela cath. EXTREMITIES: No cyanosis, clubbing, or edema. Muscle atrophy to bilateral lower extremities noted. NEUROLOGIC: Cranial nerves II to XII grossly intact, motor right side is weaker than left side. RECTAL/GENITOURINARY: Refused and deferred PSYCHIATRIC: Mood and affect unable to obtain secondary to the patient's status. Assessment/Plan Assessment/Plan ASSESSMENT: 1. Acute encephalopathy, most likely secondary to toxic metabolic encephalopathy as well as acute CVA. 2. Acute ESBL Klebsiella urinary tract infection. 3. Diabetes type 2. 4. Acute kidney injury, on chronic renal insufficiency. 5. Multifocal infarction, confirmed on MRI. 6. Hypertension. 7. Dyslipidemia. 8. Colon cancer, status post resection. 9. Alzheimer dementia. 10. History of fall with subdural hematoma, resolved. 11. Severe protein-calorie malnutrition. 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 PLAN: In telemetry. Follow up with laboratory and culture. Abx: Meropenem. ID consultation, Dr. Lopez, pulmonary consultation, Dr. Vera, Cardiology consultation with Dr. Beka Saleh, Nephrology consultation with Dr. Vin Otero. Code status: Full code. DVT prophylaxis: Eliquis. Tolerated Tube feeding @ 50 cc/hr. Bedside swallow study. Darren Spencer MD Dec 08, 2019 14:03
[2019-12-08 16:00] VITALS: BP 142/73
--- NOTE | 2019-12-08 16:39 | Pulmonology Progress Note ---
Subjective ROS Limited/Unobtainable: No Constitutional: Reports: no symptoms HEENT: Repors: no symptoms Allergies: Coded Allergies: ATENOLOL (Verified Allergy, Unknown, 05/23/16) LOSARTAN (Verified Allergy, Unknown, 05/23/16) SIMVASTATIN (Verified Allergy, Unknown, 05/23/16) Uncoded Allergies: AMLIODIPINE (Allergy, Unknown, 05/23/16) PENICILLIN (Allergy, Unknown, 12/03/19) Tolerated Ceftriaxone on 12/02/19 Objective Last 24 Hour Vital Signs Date Time Temp Pulse Resp B/P (MAP) Pulse Ox O2 Delivery O2 Flow Rate FiO2 12/08/19 16:00 96.8 83 20 142/73 (96) 98 12/08/19 12:00 98.8 84 12 131/64 (86) 98 12/08/19 12:00 77 12/08/19 08:35 Room Air 12/08/19 08:00 98.3 78 20 142/75 (97) 97 12/08/19 08:00 75 12/08/19 04:00 83 12/08/19 04:00 97.5 78 20 140/71 (94) 96 12/08/19 00:00 76 12/08/19 00:00 98.1 79 20 151/74 (99) 97 12/07/19 20:00 76 12/07/19 20:00 96.6 81 20 127/61 (83) 96 Intake and Output 12/07/19 12/08/19 19:00 07:00 Intake Total 605 ml 55 ml Balance 605 ml 55 ml Tube Feeding 605 ml 55 ml General Appearance: cachetic HEENT: normocephalic, atraumatic Respiratory: chest wall non-tender, lungs clear Cardiovascular: normal peripheral pulses Abdomen: normal bowel sounds, soft, non tender Extremities: no cyanosis Skin: no ulcers Neurologic: no motor/sensory deficits Laboratory Tests 12/08/19 03:00: Stool Occult Blood Negative Current Medications Medications (Trade) Dose Ordered Sig/James Route PRN Reason Start Time Stop Time Status Last Admin Dose Admin Acetaminophen (Tylenol) 650 mg Q4H PRN ORAL fever 12/03/19 18:48 01/02/20 18:47 Apixaban (Eliquis) 2.5 mg BID ORAL 12/05/19 09:00 03/04/20 08:59 12/08/19 09:39 Barium Sulfate (Varibar Honey) 250 ml NOW PRN RAD 12/08/19 14:00 12/11/19 13:57 Barium Sulfate (Varibar Grants) 240 ml NOW PRN RAD 12/08/19 14:00 12/11/19 13:57 Barium Sulfate (Varibar Pudding) 230 ml NOW PRN RAD 12/08/19 14:00 12/11/19 13:57 Barium Sulfate (Varibar Thin Liquid powder) 148 gm NOW PRN RAD 12/08/19 14:00 12/11/19 13:57 Clonidine HCl (Catapres Tab) 0.1 mg Q4H PRN ORAL For High Blood Pressure 12/03/19 19:15 03/01/20 19:14 Dextrose (Dextrose 50%) 25 ml Q30M PRN IV Hypoglycemia 12/03/19 18:45 03/01/20 19:14 Dextrose (Dextrose 50%) 50 ml Q30M PRN IV Hypoglycemia 12/03/19 18:45 03/01/20 19:14 Escitalopram Oxalate (Lexapro) 10 mg DAILY ORAL 12/04/19 09:00 01/02/20 08:59 12/08/19 09:39 Folic Acid (Folate) 2 mg DAILY NG 12/05/19 09:00 01/04/20 08:59 12/08/19 09:39 Insulin Aspart (NovoLOG) BEFORE MEALS AND HS SUBQ 12/03/19 21:00 03/01/20 20:59 12/08/19 11:37 Meropenem 500 mg/ Sodium Chloride 55 ml @ 110 mls/hr Q12HR@0300,1500 IVPB 12/04/19 03:00 12/09/19 23:59 12/08/19 14:32 Nitroglycerin (Ntg) 0.4 mg Q5M X 3 DOSES PRN SL Prn Chest Pain 12/03/19 18:45 01/01/20 19:14 Ondansetron HCl (Zofran) 4 mg Q6H PRN IVP Nausea & Vomiting 12/03/19 19:15 01/01/20 19:14 Polyethylene Glycol (Miralax) 17 gm BEDTIME ORAL 12/06/19 21:00 01/05/20 20:59 12/07/19 21:00 Promethazine HCl/ Codeine (Phenergan with Codeine) 5 ml Q4H PRN ORAL For Cough 12/03/19 19:15 01/01/20 19:14 Temazepam (Restoril) 15 mg HSPRN PRN ORAL Insomnia 12/03/19 19:15 12/09/19 19:14 Assessment/Plan Problems: (1) Altered level of consciousness (2) UTI (urinary tract infection) (3) Severe protein-calorie malnutrition (4) History of diabetes mellitus (5) History of hypertension (6) Alzheimer's dementia (7) Unilateral weakness (8) Subdural hematoma (9) Colon cancer Assessment/Plan looks comfortable Urine has GNB, MDR Klebsiella Abx as per ID Meropenem and Vancomycin f/u electrolytes swallow study swallow evaluation pending Neurology note appreciated Cherelle Vera MD Dec 08, 2019 16:39
--- NOTE | 2019-12-08 19:33 | NUR ---
NURSE NOTES: Received hand-of report from ELLI Cage. Patient in stable condition, alert and oriented x1 (baseline), responsive to verbal and tactile stimuli, room air, NGT at 68 trina, secured, feeding Glucerna 1.2 running at 55mL/h, HOB high fowlers, no aspiration noted, breathing unlabored and even, IV site left hand 22g intact, saline locked, no redness, no tenderness, no pain, no leaking, no infiltration noted. Soft wrist restraints taken off one at a time on right and then left wrist to asses skin integrity, safely done and skin on bilateral wrists are intact, no bruising, no redness, no alterations, replaced soft wrist restraints two finger-breadths, 16Fr urinary hamlin catheter for urinary retention patent and draining clear yellow urine. Bed in lowest and locked position, bed alarm on, call light within reach side rails upx3.
--- NOTE | 2019-12-08 19:33 | NUR ---
NURSE HAND-OFF REPORT: Important Events on Shift: n/a Patient Status: FC, stable Diet: glucerna 1.2 @ 55 ml/hr Pending Orders: EGD with possible biopsy, PEG placement on 12/09/19 Pending Results/Labs: n/a Pending MD notification: n/a Latest Vital Signs: Temperature 96.8 , Pulse 74 , B/P 142 /73 , Respiratory Rate 20 , O2 SAT 98 , Room Air, O2 Flow Rate . Vital Sign Comment: EKG Rhythm: Sinus Rhythm Rhythm change?: N Notified?: N -Dr Delfino RUFFIN Response: Latest Zhang Fall Score: 50 Fall Risk: High Risk Safety Measures: Call light Within Reach, Bed Alarm Zone 2, Side Rails Side Rails x3, Bed position Low and Locked. Fall Precautions: Yellow Socks Yellow Gown Report given to ELLI Worley.
[2019-12-08 20:00] VITALS: BP 143/75
[2019-12-08] MEDS: Miralax 17gm pkt ORAL SCH (20:33)
--- NOTE | 2019-12-08 21:33 | Cardiology Progress Note ---
Assessment/Plan Assessment/Plan multi-stroke dementia encephalopathy, UTI, cachexia, malnutrition, NG tube. hemodynamically stable, Subjective Subjective the patient is sleeping comfortably in his bed Objective Last 24 Hour Vital Signs Date Time Temp Pulse Resp B/P (MAP) Pulse Ox O2 Delivery O2 Flow Rate FiO2 12/08/19 16:00 96.8 83 20 142/73 (96) 98 12/08/19 16:00 74 12/08/19 12:00 98.8 84 12 131/64 (86) 98 12/08/19 12:00 77 12/08/19 08:35 Room Air 12/08/19 08:00 98.3 78 20 142/75 (97) 97 12/08/19 08:00 75 12/08/19 04:00 83 12/08/19 04:00 97.5 78 20 140/71 (94) 96 12/08/19 00:00 76 12/08/19 00:00 98.1 79 20 151/74 (99) 97 General Appearance: other - chronically ill apeparing cachectic Neck: non-tender Rhythm: NSR Cardiovascular: regular rhythm Respiratory/Chest: rhonchi - bilaterally Abdomen: soft Extremities: other - right leg contracture in the knee joint Intake and Output 12/07/19 12/08/19 19:00 07:00 Intake Total 605 ml 55 ml Balance 605 ml 55 ml Tube Feeding 605 ml 55 ml Laboratory Tests Test 12/08/19 03:00 Stool Occult Blood Negative (NEGATIVE) Marlena Almazan MD Dec 08, 2019 21:33
[2019-12-09] VITALS (11 sets, daily range): BP systolic 97–137; BP diastolic 54–78
--- NOTE | 2019-12-09 | NUR ---
NURSE NOTES: Stopped Glucernia 1.2 feeding.
[2019-12-09] MEDS: Meropenem 500 MG in NS 55 ML IVPB SCH ×2 (03:47→17:20)
[2019-12-09] MEDS: NovoLOG Insulin Flexpen SUBQ SCH ×4 (06:30→21:00)
[2019-12-09 07:28] LABS: BASOPHILS % (AUTO) 0.3 % (0.0-2.0); EOSINOPHILS % (AUTO) 0.3 % (0.0-3.0); HEMATOCRIT 31.3 % (42.0-52.0); HEMOGLOBIN 9.8 G/DL (14.2-18.0); LYMPHOCYTES % (AUTO) 6.7 % (20.0-45.0); MEAN CORPUSCULAR VOLUME 86 FL (80-99); NEUTROPHILS % (AUTO) 84.6 % (45.0-75.0); PLATELET COUNT 326 K/UL (150-450); RED BLOOD COUNT 3.66 M/UL (4.70-6.10); RED CELL DISTRIBUTION WIDTH 13.2 % (11.6-14.8); WHITE BLOOD COUNT 14.4 K/UL (4.8-10.8)
--- NOTE | 2019-12-09 07:40 | NUR ---
NURSE HAND-OFF REPORT: Important Events on Shift: PEG placement with possible feeding, EGD with possible biopsy endorsed, NPO at midnight, troponin was 0.131 endorsed, bilateral wrists intact, no alterations (redness, edema) noted, bilateral radial pulses palpable+2 and normal; last bgl was 139 no coverage, patient alert and oriented to baseline (x1), responsive to tactile and verbal stimuli Patient Status: full code, stable condition Diet: NPO due to procedure today Pending Orders: Pending Results/Labs: Pending MD notification: Latest Vital Signs: Temperature 98.0 , Pulse 91 , B/P 131 /67 , Respiratory Rate 17 , O2 SAT 96 , Room Air, O2 Flow Rate . Vital Sign Comment: EKG Rhythm: Sinus Rhythm Rhythm change?: N Notified?: N -Dr Delfino RUFFIN Response: Latest Zhang Fall Score: 50 Fall Risk: High Risk Safety Measures: Call light Within Reach, Bed Alarm Zone 2, Side Rails Side Rails x3, Bed position Low and Locked. Fall Precautions: Yellow Socks Yellow Gown Report given to ELLI So.
[2019-12-09 08:14] LABS: ALANINE AMINOTRANSFERASE 55 U/L (12-78); ALBUMIN 2.1 G/DL (3.4-5.0); ALBUMIN/GLOBULIN RATIO 0.5 (1.0-2.7); ALKALINE PHOSPHATASE 77 U/L (46-116); ANION GAP 7 mmol/L (5-15); ASPARTATE AMINO TRANSFERASE 32 U/L (15-37); BILIRUBIN,TOTAL 0.3 MG/DL (0.2-1.0); BLOOD UREA NITROGEN 48 mg/dL (7-18); CALCIUM 8.9 MG/DL (8.5-10.1); CARBON DIOXIDE 31 MMOL/L (21-32); CHLORIDE 102 MMOL/L (98-107); CREATININE 1.2 MG/DL (0.55-1.30); PHOSPHORUS 3.3 MG/DL (2.5-4.9); POTASSIUM 4.7 MMOL/L (3.5-5.1); SODIUM 140 MMOL/L (136-145)
--- NOTE | 2019-12-09 08:23 | NUR ---
NURSE NOTES: RECEIVED PATIENT FROM CL CALLOWAY IN BED. NO S/S OF PAIN OR RESPIRATORY DISTRESS NOTED. NOTED PATIENT HAS EGD WITH POSSIBLE BIOPSY TODAY, CONSENT SIGNED AND IN CHART. BED IS ON LOWEST LEVEL WITH BEDSIDE RAILS UP X3. CALL LIGHT IS WITHIN REACH. WILL CONTINUE WITH THE PLAN OF CARE.
[2019-12-09] MEDS: Eliquis 2.5mg tablet ORAL SCH ×2 (09:00→18:17)
--- NOTE | 2019-12-09 09:58 | General Progress Note ---
Assessment/Plan Assessment/Plan: anemia AMS dysphagia DM h/o colon ca RI NGTF PEG for today anemia work up fu labs Subjective ROS Limited/Unobtainable: No Allergies: Coded Allergies: ATENOLOL (Verified Allergy, Unknown, 05/23/16) LOSARTAN (Verified Allergy, Unknown, 05/23/16) SIMVASTATIN (Verified Allergy, Unknown, 05/23/16) Uncoded Allergies: AMLIODIPINE (Allergy, Unknown, 05/23/16) PENICILLIN (Allergy, Unknown, 12/03/19) Tolerated Ceftriaxone on 12/02/19 Objective Last 24 Hour Vital Signs Date Time Temp Pulse Resp B/P (MAP) Pulse Ox O2 Delivery O2 Flow Rate FiO2 12/09/19 04:00 98.0 91 17 131/67 (88) 96 12/09/19 04:00 81 12/09/19 00:00 91 12/09/19 00:00 97.6 91 16 137/78 (97) 97 12/08/19 21:55 89 16 95 Room Air 21 12/08/19 21:00 Room Air 12/08/19 20:00 97.7 86 17 143/75 (97) 97 12/08/19 20:00 84 12/08/19 16:00 96.8 83 20 142/73 (96) 98 12/08/19 16:00 74 12/08/19 12:00 98.8 84 12 131/64 (86) 98 12/08/19 12:00 77 Intake and Output 12/08/19 12/09/19 19:00 07:00 Intake Total 155 ml 320 ml Output Total 500 ml 600 ml Balance -345 ml -280 ml Intake Free Water 100 ml 100 ml Tube Feeding 55 ml 220 ml Output Urine Total 500 ml 600 ml # Bowel Movements 1 Laboratory Tests 12/09/19 05:47: White Blood Count 14.4H, Red Blood Count 3.66L, Hemoglobin 9.8L, Hematocrit 31.3L, Mean Corpuscular Volume 86, Mean Corpuscular Hemoglobin 26.7L, Mean Corpuscular Hemoglobin Concent 31.2L, Red Cell Distribution Width 13.2, Platelet Count 326, Mean Platelet Volume 5.4L, Neutrophils (%) (Auto) 84.6H, Lymphocytes (%) (Auto) 6.7L, Monocytes (%) (Auto) 8.0, Eosinophils (%) (Auto) 0.3, Basophils (%) (Auto) 0.3, Sodium Level 140, Potassium Level 4.7, Chloride Level 102, Carbon Dioxide Level 31, Anion Gap 7, Blood Urea Nitrogen 48H, Creatinine 1.2, Estimat Glomerular Filtration Rate 57.1, Glucose Level 143H, Calcium Level 8.9, Phosphorus Level 3.3, Magnesium Level 2.1, Total Bilirubin 0.3, Aspartate Amino Transf (AST/SGOT) 32, Alanine Aminotransferase (ALT/SGPT) 55, Alkaline Phosphatase 77, Total Protein 6.4, Albumin 2.1L, Globulin 4.3, Albumin/Globulin Ratio 0.5L Height (Feet): 5 Height (Inches): 6.00 Weight (Pounds): 115 General Appearance: no apparent distress EENT: PERRL/EOMI Neck: supple Cardiovascular: normal rate Respiratory/Chest: decreased breath sounds Abdomen: hypoactive bowel sounds Extremities: non-tender Mamadou Johnson MD Dec 09, 2019 09:58
--- NOTE | 2019-12-09 10:32 | Pre-Procedure Note/Attestation ---
Pre-Procedure Note/Attestation Complete Prior to Procedure Planned Procedure: not applicable Procedure Narrative: egd/peg Indications for Procedure Pre-Operative Diagnosis: dysphagia Attestation I attest that I discussed the nature of the procedure; its benefits; risks and complications; and alternatives (and the risks and benefits of such alternatives ), prior to the procedure, with the patient (or the patient's legal guest experience representative). I attest that, if there was a reasonable possibility of needing a blood transfusion, the patient (or the patient's legal guest experience representative) was given the [facility] standardized written summary, pursuant to the Krunal Darrin Blood Safety Act ([place] Health and Safety Code # 1645, as amended). I attest that I re-evaluated the patient just prior to the surgery and that there has been no change in the patient's H&P, except as documented below: Mamadou Johnson MD Dec 09, 2019 10:32
--- NOTE | 2019-12-09 11:19 | Pulmonology Progress Note ---
Subjective ROS Limited/Unobtainable: No Constitutional: Reports: no symptoms HEENT: Repors: no symptoms Allergies: Coded Allergies: ATENOLOL (Verified Allergy, Unknown, 05/23/16) LOSARTAN (Verified Allergy, Unknown, 05/23/16) SIMVASTATIN (Verified Allergy, Unknown, 05/23/16) Uncoded Allergies: AMLIODIPINE (Allergy, Unknown, 05/23/16) PENICILLIN (Allergy, Unknown, 12/03/19) Tolerated Ceftriaxone on 12/02/19 Objective Last 24 Hour Vital Signs Date Time Temp Pulse Resp B/P (MAP) Pulse Ox O2 Delivery O2 Flow Rate FiO2 12/09/19 09:00 Room Air 12/09/19 08:00 97.6 74 16 136/66 (89) 97 12/09/19 08:00 74 12/09/19 04:00 98.0 91 17 131/67 (88) 96 12/09/19 04:00 81 12/09/19 00:00 91 12/09/19 00:00 97.6 91 16 137/78 (97) 97 12/08/19 21:55 89 16 95 Room Air 21 12/08/19 21:00 Room Air 12/08/19 20:00 97.7 86 17 143/75 (97) 97 12/08/19 20:00 84 12/08/19 16:00 96.8 83 20 142/73 (96) 98 12/08/19 16:00 74 12/08/19 12:00 98.8 84 12 131/64 (86) 98 12/08/19 12:00 77 Intake and Output 12/08/19 12/09/19 19:00 07:00 Intake Total 155 ml 320 ml Output Total 500 ml 600 ml Balance -345 ml -280 ml Intake Free Water 100 ml 100 ml Tube Feeding 55 ml 220 ml Output Urine Total 500 ml 600 ml # Bowel Movements 1 General Appearance: cachetic HEENT: normocephalic, atraumatic Respiratory: chest wall non-tender, lungs clear Cardiovascular: normal peripheral pulses Abdomen: normal bowel sounds, soft, non tender Extremities: no cyanosis Skin: no ulcers Neurologic: no motor/sensory deficits Laboratory Tests 12/09/19 05:47: White Blood Count 14.4H, Red Blood Count 3.66L, Hemoglobin 9.8L, Hematocrit 31.3L, Mean Corpuscular Volume 86, Mean Corpuscular Hemoglobin 26.7L, Mean Corpuscular Hemoglobin Concent 31.2L, Red Cell Distribution Width 13.2, Platelet Count 326, Mean Platelet Volume 5.4L, Neutrophils (%) (Auto) 84.6H, Lymphocytes (%) (Auto) 6.7L, Monocytes (%) (Auto) 8.0, Eosinophils (%) (Auto) 0.3, Basophils (%) (Auto) 0.3, Sodium Level 140, Potassium Level 4.7, Chloride Level 102, Carbon Dioxide Level 31, Anion Gap 7, Blood Urea Nitrogen 48H, Creatinine 1.2, Estimat Glomerular Filtration Rate 57.1, Glucose Level 143H, Calcium Level 8.9, Phosphorus Level 3.3, Magnesium Level 2.1, Total Bilirubin 0.3, Aspartate Amino Transf (AST/SGOT) 32, Alanine Aminotransferase (ALT/SGPT) 55, Alkaline Phosphatase 77, Total Protein 6.4, Albumin 2.1L, Globulin 4.3, Albumin/Globulin Ratio 0.5L Current Medications Medications (Trade) Dose Ordered Sig/James Route PRN Reason Start Time Stop Time Status Last Admin Dose Admin Acetaminophen (Tylenol) 650 mg Q4H PRN ORAL fever 12/03/19 18:48 01/02/20 18:47 Apixaban (Eliquis) 2.5 mg BID ORAL 12/05/19 09:00 03/04/20 08:59 12/08/19 17:34 Barium Sulfate (Varibar Honey) 250 ml NOW PRN MC RAD 12/08/19 14:00 12/11/19 13:57 Barium Sulfate (Varibar Mcgraw) 240 ml NOW PRN MC RAD 12/08/19 14:00 12/11/19 13:57 Barium Sulfate (Varibar Pudding) 230 ml NOW PRN MC RAD 12/08/19 14:00 12/11/19 13:57 Barium Sulfate (Varibar Thin Liquid powder) 148 gm NOW PRN MC RAD 12/08/19 14:00 12/11/19 13:57 Clonidine HCl (Catapres Tab) 0.1 mg Q4H PRN ORAL For High Blood Pressure 12/03/19 19:15 03/01/20 19:14 Dextrose (Dextrose 50%) 25 ml Q30M PRN IV Hypoglycemia 12/03/19 18:45 03/01/20 19:14 Dextrose (Dextrose 50%) 50 ml Q30M PRN IV Hypoglycemia 12/03/19 18:45 03/01/20 19:14 Escitalopram Oxalate (Lexapro) 10 mg DAILY ORAL 12/04/19 09:00 01/02/20 08:59 12/09/19 09:17 Folic Acid (Folate) 2 mg DAILY NG 12/05/19 09:00 01/04/20 08:59 12/09/19 09:18 Insulin Aspart (NovoLOG) BEFORE MEALS AND HS SUBQ 12/03/19 21:00 03/01/20 20:59 12/08/19 11:37 Meropenem 500 mg/ Sodium Chloride 55 ml @ 110 mls/hr Q12HR@0300,1500 IVPB 12/04/19 03:00 12/09/19 23:59 12/09/19 03:47 Nitroglycerin (Ntg) 0.4 mg Q5M X 3 DOSES PRN SL Prn Chest Pain 12/03/19 18:45 01/01/20 19:14 Ondansetron HCl (Zofran) 4 mg Q6H PRN IVP Nausea & Vomiting 12/03/19 19:15 01/01/20 19:14 Polyethylene Glycol (Miralax) 17 gm BEDTIME ORAL 12/06/19 21:00 01/05/20 20:59 12/08/19 20:33 Promethazine HCl/ Codeine (Phenergan with Codeine) 5 ml Q4H PRN ORAL For Cough 12/03/19 19:15 01/01/20 19:14 Temazepam (Restoril) 15 mg HSPRN PRN ORAL Insomnia 12/03/19 19:15 12/09/19 19:14 Assessment/Plan Problems: (1) Altered level of consciousness (2) UTI (urinary tract infection) (3) Severe protein-calorie malnutrition (4) History of diabetes mellitus (5) History of hypertension (6) Alzheimer's dementia (7) Unilateral weakness (8) Subdural hematoma (9) Colon cancer Assessment/Plan WBC is higher Urine has GNB, MDR Klebsiella Abx as per ID Meropenem and Vancomycin f/u electrolytes swallow study reviewed. swallow evaluation pending Neurology note appreciated Cherelle Vera MD Dec 09, 2019 11:19
--- NOTE | 2019-12-09 11:37 | Cardiology Progress Note ---
Assessment/Plan Assessment/Plan 1. 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 2. Altered mental status, probably secondary to above. 3. Renal insufficiency acute on chronic. 4. Urinary tract infection. 5. History of subdural hematoma post fall. 6. B12 deficiency. 7. Diabetes mellitus. 8. Anemia. 9. Iron deficiency. 10. 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 neuro recommended dapt urin cx + but blood cx neg getting ivf carotid less thn 50% stenosis tele sinus no afib or svt now has ngt on feeding xray of hip and knee note will need ct of hip right tele sinus , rare pac no afib dapt per neuro Subjective ROS Limited/Unobtainable: No Cardiovascular: Denies: chest pain Respiratory: Denies: shortness of breath Gastrointestinal/Abdominal: Denies: abdominal pain Genitourinary: Denies: burning Objective Last 24 Hour Vital Signs Date Time Temp Pulse Resp B/P (MAP) Pulse Ox O2 Delivery O2 Flow Rate FiO2 12/09/19 09:00 Room Air 12/09/19 08:00 97.6 74 16 136/66 (89) 97 12/09/19 08:00 74 12/09/19 04:00 98.0 91 17 131/67 (88) 96 12/09/19 04:00 81 12/09/19 00:00 91 12/09/19 00:00 97.6 91 16 137/78 (97) 97 12/08/19 21:55 89 16 95 Room Air 21 12/08/19 21:00 Room Air 12/08/19 20:00 97.7 86 17 143/75 (97) 97 12/08/19 20:00 84 12/08/19 16:00 96.8 83 20 142/73 (96) 98 12/08/19 16:00 74 12/08/19 12:00 98.8 84 12 131/64 (86) 98 12/08/19 12:00 77 General Appearance: no apparent distress, alert Cardiovascular: normal rate Respiratory/Chest: lungs clear Abdomen: normal bowel sounds, non tender, soft Extremities: no swelling Intake and Output 12/08/19 12/09/19 19:00 07:00 Intake Total 155 ml 320 ml Output Total 500 ml 600 ml Balance -345 ml -280 ml Intake Free Water 100 ml 100 ml Tube Feeding 55 ml 220 ml Output Urine Total 500 ml 600 ml # Bowel Movements 1 Laboratory Tests Test 12/09/19 05:47 White Blood Count 14.4 K/UL (4.8-10.8) H Red Blood Count 3.66 M/UL (4.70-6.10) L Hemoglobin 9.8 G/DL (14.2-18.0) L Hematocrit 31.3 % (42.0-52.0) L Mean Corpuscular Volume 86 FL (80-99) Mean Corpuscular Hemoglobin 26.7 PG (27.0-31.0) L Mean Corpuscular Hemoglobin Concent 31.2 G/DL (32.0-36.0) L Red Cell Distribution Width 13.2 % (11.6-14.8) Platelet Count 326 K/UL (150-450) Mean Platelet Volume 5.4 FL (6.5-10.1) L Neutrophils (%) (Auto) 84.6 % (45.0-75.0) H Lymphocytes (%) (Auto) 6.7 % (20.0-45.0) L Monocytes (%) (Auto) 8.0 % (1.0-10.0) Eosinophils (%) (Auto) 0.3 % (0.0-3.0) Basophils (%) (Auto) 0.3 % (0.0-2.0) Sodium Level 140 MMOL/L (136-145) Potassium Level 4.7 MMOL/L (3.5-5.1) Chloride Level 102 MMOL/L (98-107) Carbon Dioxide Level 31 MMOL/L (21-32) Anion Gap 7 mmol/L (5-15) Blood Urea Nitrogen 48 mg/dL (7-18) H Creatinine 1.2 MG/DL (0.55-1.30) Estimat Glomerular Filtration Rate 57.1 mL/min (>60) Glucose Level 143 MG/DL (74-106) H Calcium Level 8.9 MG/DL (8.5-10.1) Phosphorus Level 3.3 MG/DL (2.5-4.9) Magnesium Level 2.1 MG/DL (1.8-2.4) Total Bilirubin 0.3 MG/DL (0.2-1.0) Aspartate Amino Transf (AST/SGOT) 32 U/L (15-37) Alanine Aminotransferase (ALT/SGPT) 55 U/L (12-78) Alkaline Phosphatase 77 U/L (46-116) Total Protein 6.4 G/DL (6.4-8.2) Albumin 2.1 G/DL (3.4-5.0) L Globulin 4.3 g/dL Albumin/Globulin Ratio 0.5 (1.0-2.7) L Beka Saleh MD Dec 09, 2019 11:37
--- NOTE | 2019-12-09 11:54 | Anethesia Preoperative Eval ---
Anesthesia Pre-op PMH/ROS General Date of Evaluation: Dec 09, 2019 Time of Evaluation: 11:54 Anesthesiologist: rose ASA Score: ASA 4 Mallampati Score Class I : Soft palate, uvula, fauces, pillars visible Class II: Soft palate, uvula, fauces visible Class III: Soft palate, base of uvula visible Class IV: Only hard plate visible Mallampati Classification: Class II Surgeon: gómez Diagnosis: dysphagia Surgical Procedure: egd/peg Anesthesia History: none Social History: smoking - nonsmoker Family History: no anesthesia problems Allergies: Coded Allergies: ATENOLOL (Verified Allergy, Unknown, 05/23/16) LOSARTAN (Verified Allergy, Unknown, 05/23/16) SIMVASTATIN (Verified Allergy, Unknown, 05/23/16) Uncoded Allergies: AMLIODIPINE (Allergy, Unknown, 05/23/16) PENICILLIN (Allergy, Unknown, 12/03/19) Tolerated Ceftriaxone on 12/02/19 Medications: see eMAR Patient NPO?: Yes Past Medical History Cardiovascular: Reports: HTN Gastrointestinal/Genitourinary: Reports: other - dysphagia, hx/o colon cancer, renal insufficiency Neurologic/Psychiatric: Reports: dementia, other - subdural hematoma, metabolic encephalopathy Endocrine: Reports: DM Anesthesia Pre-op Phys. Exam Physician Exam Last Vital Signs Date Time Temp Pulse Resp B/P (MAP) Pulse Ox O2 Delivery O2 Flow Rate FiO2 12/09/19 09:00 Room Air 12/09/19 08:00 97.6 74 16 136/66 (89) 97 12/08/19 21:55 21 Constitutional: NAD Neurologic: other - dementia Cardiovascular: RRR Respiratory: CTA Gastrointestinal: S/NT/ND Airway Exam Mallampati Score: Class II MO: limited Neck: flexible TMD: 2fb ROM: limited Teeth: missing Anesthesia Pre-op A/P Labs covid-19 negative 12/02/2019 Microbiology Date/Time Source Procedure Growth Status 12/02/19 19:00 Blood Blood Culture - Final NO GROWTH AFTER 5 DAYS Complete 12/03/19 19:00 Nasal Nares MRSA Culture - Final NO METHICILLIN RESISTANT STAPH AUREUS... Complete 12/02/19 19:00 Urine,Clean Catch Urine Culture - Final Klebsiella Pneumoniae Esbl Complete 12/03/19 19:00 Rectum VRE Culture - Final Enterococcus Faecalis - Vre Complete Hematology Test 12/09/19 05:47 White Blood Count 14.4 K/UL (4.8-10.8) H Red Blood Count 3.66 M/UL (4.70-6.10) L Hemoglobin 9.8 G/DL (14.2-18.0) L Hematocrit 31.3 % (42.0-52.0) L Mean Corpuscular Volume 86 FL (80-99) Mean Corpuscular Hemoglobin 26.7 PG (27.0-31.0) L Mean Corpuscular Hemoglobin Concent 31.2 G/DL (32.0-36.0) L Red Cell Distribution Width 13.2 % (11.6-14.8) Platelet Count 326 K/UL (150-450) Mean Platelet Volume 5.4 FL (6.5-10.1) L Neutrophils (%) (Auto) 84.6 % (45.0-75.0) H Lymphocytes (%) (Auto) 6.7 % (20.0-45.0) L Monocytes (%) (Auto) 8.0 % (1.0-10.0) Eosinophils (%) (Auto) 0.3 % (0.0-3.0) Basophils (%) (Auto) 0.3 % (0.0-2.0) Chemistry Test 12/09/19 05:47 Sodium Level 140 MMOL/L (136-145) Potassium Level 4.7 MMOL/L (3.5-5.1) Chloride Level 102 MMOL/L (98-107) Carbon Dioxide Level 31 MMOL/L (21-32) Anion Gap 7 mmol/L (5-15) Blood Urea Nitrogen 48 mg/dL (7-18) H Creatinine 1.2 MG/DL (0.55-1.30) Estimat Glomerular Filtration Rate 57.1 mL/min (>60) Glucose Level 143 MG/DL (74-106) H Calcium Level 8.9 MG/DL (8.5-10.1) Phosphorus Level 3.3 MG/DL (2.5-4.9) Magnesium Level 2.1 MG/DL (1.8-2.4) Total Bilirubin 0.3 MG/DL (0.2-1.0) Aspartate Amino Transf (AST/SGOT) 32 U/L (15-37) Alanine Aminotransferase (ALT/SGPT) 55 U/L (12-78) Alkaline Phosphatase 77 U/L (46-116) Total Protein 6.4 G/DL (6.4-8.2) Albumin 2.1 G/DL (3.4-5.0) L Globulin 4.3 g/dL Albumin/Globulin Ratio 0.5 (1.0-2.7) L Risk Assessment & Plan Assessment: asa4 Plan: mac Status Change Before Surgery: No Pre-Antibiotics Drug: Shobha Jin MD Dec 09, 2019 11:54
--- NOTE | 2019-12-09 12:21 | Surgery Progress Note ---
Surgery Progress Note Subjective Additional Comments ng tube in place pending PEG today comfortable appearing no n/v/fc alb 2.1 Objective Last 24 Hour Vital Signs Date Time Temp Pulse Resp B/P (MAP) Pulse Ox O2 Delivery O2 Flow Rate FiO2 12/09/19 09:00 Room Air 12/09/19 08:00 97.6 74 16 136/66 (89) 97 12/09/19 08:00 74 12/09/19 04:00 98.0 91 17 131/67 (88) 96 12/09/19 04:00 81 12/09/19 00:00 91 12/09/19 00:00 97.6 91 16 137/78 (97) 97 12/08/19 21:55 89 16 95 Room Air 21 12/08/19 21:00 Room Air 12/08/19 20:00 97.7 86 17 143/75 (97) 97 12/08/19 20:00 84 12/08/19 16:00 96.8 83 20 142/73 (96) 98 12/08/19 16:00 74 I&O Intake and Output 12/08/19 12/09/19 19:00 07:00 Intake Total 155 ml 320 ml Output Total 500 ml 600 ml Balance -345 ml -280 ml Intake Free Water 100 ml 100 ml Tube Feeding 55 ml 220 ml Output Urine Total 500 ml 600 ml # Bowel Movements 1 Dressing: other Wound: other Cardiovascular: RSR Respiratory: decreased breath sounds Abdomen: soft, non-tender, present bowel sounds Extremities: no edema, no tenderness, no cyanosis Laboratory Tests Test 12/09/19 05:47 White Blood Count 14.4 K/UL (4.8-10.8) H Red Blood Count 3.66 M/UL (4.70-6.10) L Hemoglobin 9.8 G/DL (14.2-18.0) L Hematocrit 31.3 % (42.0-52.0) L Mean Corpuscular Volume 86 FL (80-99) Mean Corpuscular Hemoglobin 26.7 PG (27.0-31.0) L Mean Corpuscular Hemoglobin Concent 31.2 G/DL (32.0-36.0) L Red Cell Distribution Width 13.2 % (11.6-14.8) Platelet Count 326 K/UL (150-450) Mean Platelet Volume 5.4 FL (6.5-10.1) L Neutrophils (%) (Auto) 84.6 % (45.0-75.0) H Lymphocytes (%) (Auto) 6.7 % (20.0-45.0) L Monocytes (%) (Auto) 8.0 % (1.0-10.0) Eosinophils (%) (Auto) 0.3 % (0.0-3.0) Basophils (%) (Auto) 0.3 % (0.0-2.0) Sodium Level 140 MMOL/L (136-145) Potassium Level 4.7 MMOL/L (3.5-5.1) Chloride Level 102 MMOL/L (98-107) Carbon Dioxide Level 31 MMOL/L (21-32) Anion Gap 7 mmol/L (5-15) Blood Urea Nitrogen 48 mg/dL (7-18) H Creatinine 1.2 MG/DL (0.55-1.30) Estimat Glomerular Filtration Rate 57.1 mL/min (>60) Glucose Level 143 MG/DL (74-106) H Calcium Level 8.9 MG/DL (8.5-10.1) Phosphorus Level 3.3 MG/DL (2.5-4.9) Magnesium Level 2.1 MG/DL (1.8-2.4) Total Bilirubin 0.3 MG/DL (0.2-1.0) Aspartate Amino Transf (AST/SGOT) 32 U/L (15-37) Alanine Aminotransferase (ALT/SGPT) 55 U/L (12-78) Alkaline Phosphatase 77 U/L (46-116) Total Protein 6.4 G/DL (6.4-8.2) Albumin 2.1 G/DL (3.4-5.0) L Globulin 4.3 g/dL Albumin/Globulin Ratio 0.5 (1.0-2.7) L Plan Problems: (1) History of diabetes mellitus (2) History of hypertension (3) Alzheimer's dementia (4) UTI (urinary tract infection) (5) Unilateral weakness (6) Acute dehydration (7) Altered level of consciousness (8) Subdural hematoma (9) Colon cancer (10) Severe protein-calorie malnutrition Assessment & Plan: planned PEG DAILY ESTIMATED NEEDS: Needs based on Underweight, wasting, wound 40kg 30-35 kcals/kg 0550-9241 total kcals 1.25-2 g protein/kg 50-80 g total protein 25-30ml/kcal mL/kg 9208-7197 total fluid mLs NUTRITION DIAGNOSIS: Increased kcal and pro needs r/t underweight status as evidenced by low BMI, moderate to severe generalized wasting, w/ multiple areas of skin compromise, DTI x4. CURRENT DIET: NPO ENTERAL NUTRITION RECOMMENDATIONS: Glucerna 1.2 goal of 45ml/hr x24 hrs to provide 1080ml, 1296 kcal, 65g pro, 869ml free h2O - Obtain GI access, initiate Glucerna 1.2 @25ml/hr for 6 hrs - Advance as tolerated 10ml/hr q4-6 hrs to goal - Flush per MD/ HOB over 30 degrees ------ ADDITIONAL RECOMMENDATIONS: 1) W/ poor po intake, add Ensure TID -> not appropriate for oral po W/ elevated BG rec Glucerna TID-> not appropriate for oral po 2) Add FRANCISCA BID -> f/up w WC eval 3) DEVELOPING MACHINE OPERATOR eval for texture, need for non oral feeds-> S/p DEVELOPING MACHINE OPERATOR eval, not appropriate for oral diet, TF recs as above 4) Calibrated bed scale wts daily 5) Monitor lytes w/ TF, replete as needed ACUTE: ALOC x2 days with right side paralysis, CVA, intracranial bleed, seizure , postictal state, major electrolyte abnormality, severe sepsis, Acute dehydration. H/O: subdural hematoma, colon cancer status post treatment, HTN, Syncope and collapse, anemia, DM2, Alzheimer Dementia, CKD, severe protein-calorie malnutrition, hyperlipidemia, vitamin B12 deficiency, muscle wasting, lack of coordination. POLST: Not in chart. RELEVANT MEDS: Albuterol (SOB); Zofran (Nausea); Restoril (insomnia). VITALS ON 2L NASAL CANNULA: HR: 67; RR: 19; SP02 100% PLOF: Pt consumed mechanical soft with thin liquids [facility] at [facility]. Pt seen at bedside appears frail and weak. Pt able to open eye to verbal communication. Pt noted with copious, thick phlegm and debris in BOT and throughout oral cavity. Pt provided oral moisturizer and thorough oral care with Yankauer suction, removing thick phlegm, mildly improved verbal communication s/p oral care. Pt able to nod head yes when asked if Pt gets thickened liquids. 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 Pt given PO trial of nectar thick liquid teaspoons. Oral phase characterized by functional labial seal, poor bolus control resulting in suspected premature posterior spillage and subsequent suspected silent aspiration given laryngeal elevation was not well appreciated upon palpation despite verbal and tactile cues to Pt's larynx to initiate swallow; no swallow initiated. Pt did not cough or attempt to clear trial. Pt was able to eventually initiate a swallow with a 20 second delay, laryngeal elevation incomplete in feel upon palpation. Pt is a high risk for silent aspiration, would benefit from MBSS in future ( will monitor Pt's candidacy, not appropriate to participate in MBSS at this time ). RECOMMENDATIONS: 1. NPO with nutrition, hydration, and meds via NGT (12 Emir[place]). 2. Please provide oral care BID 3. Dysphagia therapy 3-5x per week x1 week. 4. Will monitor Pts appropriateness to participate in MBSS. 5. Pt would benefit from Speech, Language, and Cognitive communication evaluation given s/p lacunar infarcts. (11) Decubitus skin ulcer Assessment & Plan: Pt presented on admission with multiple Pressure injuries. Reabsorbing DTPI L Elbow. Base of Pressure Injury is dry and black centrally with maroon borders(L)2cm x (W)1.5cm. DTPI Sacrum (L)9.5cm x (W)11.5cm. Base of Pressure Injury is indurated purpuric with surrounding maroon borders. Pt verbalized tenderness when affected site minimally palpated. DTPI R Ischium(L)8cm x (W)9.5cm. Base of pressure injury is purpuric with maroon borders. Tender when minimally palpated. DTPI L trochanter(L)4cm x (W)3.2cm. Base of injury is purpuric with surrounding Maroon borders. Tender when minimally palpated. DTPI L Ischium (L)7cm x (W)5.4cm.Base of Injury is black with marginal erythema . Tender when minimally palpated. R Heel is boggy with non-blanchable erythema (L)3cm x (W)3.5cm. L Heel is boggy with non-Blanchable erythema(L)5cm x (W)3.5cm. L 1st metatarsal erythematous,tip is fluctuant. Pt complained tender when minimally palpated. No elevation in skin temp noted. Dry scab noted to dorsal L 2nd metatarsal. Tx.Plan: Apply Moisture Barrier Paste to Sacrum and bilat ischial tuberosities. Cover each site with Optifoam drsgs. Change every 3 days and prn. Apply Cavilon Skin Barrier to R and L trochanter. Cover each site with Optifoam drsgs. Change every 7 days and prn Apply Cavilon Skin Barrier to L and R elbows. Cover each site with Optifoam drsgs. Change every 7 days and prn. Apply Cavilon Skin Barrier to both heels and Malleoli. Cover each site with Optifoam drsgs. Change every 7 days and prn. Apply Cavilon Skin Barrier to bony prominences and cover with Optifoam drsgs as needed. Reposition at least every 2hours or as tolerated. Off-load heels with pillow. APM/KARTHIK Mattress overlay. (12) Anemia (13) FRANKY (acute kidney injury) (14) Stroke Patel Merrill Dec 09, 2019 12:21
[2019-12-09] MEDS ORDERED: Lidocaine 1% MPF 10mg/ml 5ml ONE (12:30)
[2019-12-09] MEDS ORDERED: ePHEDrine 50mg/ml Inj ONE (12:30)
[2019-12-09] MEDS ORDERED: DiphenhydrAMINE 50mg/ml Inj IVP PRN (12:45)
[2019-12-09] MEDS ORDERED: Atropine Inj 1mg/10ml Syr IV PRN (12:45)
[2019-12-09] MEDS ORDERED: fentaNYL 100 mcg/2 mL IV PRN (12:45)
--- NOTE | 2019-12-09 12:46 | Nephrology Progress Note ---
Assessment/Plan Problem List: (1) FRANKY (acute kidney injury) (2) Anemia (3) Severe protein-calorie malnutrition (4) Alzheimer's dementia (5) UTI (urinary tract infection) (6) Acute dehydration Assessment Acute on chronic renal failure. Previous admission patient was discharged on serum creatinine of 1.6. Severe malnutrition. Encephalopathy toxic metabolic. Evidence of UTI. Multi-infarct brain disease. Diabetes mellitus Hypertension History of colon cancer Alzheimer's senior living resident Full code Plan December 08: Labs are reviewed. Stable from renal standpoint. December 07: No chemistry panel done today. Will check labs tomorrow. Stable from renal standpoint of view December 06: Renal parameters stable. DC IV fluid. Continue per consultants. December 05: Renal parameters improving. Continue IV fluid. Continue to monitor renal parameters and electrolytes. Medication list reviewed. Abnormal electrolyte addressed. December 04: Serum creatinine improving. IV fluid changed to D5W 30 cc an hour. Feeding through NG tube is in process. Continue to monitor electrolytes and renal parameters. December 03: Late note entry due to system [place] [facility] [place]. Serum creatinine improving. Folic acid supplement given. Continue to monitor renal parameters Slow hydrate Monitor renal parameters urine output Antibiotics Avoid nephrotoxic's Per consultants Improve nutritional status as possible Subjective ROS Limited/Unobtainable: Yes Objective Objective Last 24 Hour Vital Signs Date Time Temp Pulse Resp B/P (MAP) Pulse Ox O2 Delivery O2 Flow Rate FiO2 12/09/19 09:00 Room Air 12/09/19 08:00 97.6 74 16 136/66 (89) 97 12/09/19 08:00 74 12/09/19 04:00 98.0 91 17 131/67 (88) 96 12/09/19 04:00 81 12/09/19 00:00 91 12/09/19 00:00 97.6 91 16 137/78 (97) 97 12/08/19 21:55 89 16 95 Room Air 21 12/08/19 21:00 Room Air 12/08/19 20:00 97.7 86 17 143/75 (97) 97 12/08/19 20:00 84 12/08/19 16:00 96.8 83 20 142/73 (96) 98 12/08/19 16:00 74 Intake and Output 12/08/19 12/09/19 19:00 07:00 Intake Total 155 ml 320 ml Output Total 500 ml 600 ml Balance -345 ml -280 ml Intake Free Water 100 ml 100 ml Tube Feeding 55 ml 220 ml Output Urine Total 500 ml 600 ml # Bowel Movements 1 Laboratory Tests 12/09/19 05:47: White Blood Count 14.4H, Red Blood Count 3.66L, Hemoglobin 9.8L, Hematocrit 31.3L, Mean Corpuscular Volume 86, Mean Corpuscular Hemoglobin 26.7L, Mean Corpuscular Hemoglobin Concent 31.2L, Red Cell Distribution Width 13.2, Platelet Count 326, Mean Platelet Volume 5.4L, Neutrophils (%) (Auto) 84.6H, Lymphocytes (%) (Auto) 6.7L, Monocytes (%) (Auto) 8.0, Eosinophils (%) (Auto) 0.3, Basophils (%) (Auto) 0.3, Sodium Level 140, Potassium Level 4.7, Chloride Level 102, Carbon Dioxide Level 31, Anion Gap 7, Blood Urea Nitrogen 48H, Creatinine 1.2, Estimat Glomerular Filtration Rate 57.1, Glucose Level 143H, Calcium Level 8.9, Phosphorus Level 3.3, Magnesium Level 2.1, Total Bilirubin 0.3, Aspartate Amino Transf (AST/SGOT) 32, Alanine Aminotransferase (ALT/SGPT) 55, Alkaline Phosphatase 77, Total Protein 6.4, Albumin 2.1L, Globulin 4.3, Albumin/Globulin Ratio 0.5L Height (Feet): 5 Height (Inches): 6.00 Weight (Pounds): 115 General Appearance: no apparent distress EENT: other Cardiovascular: normal rate Respiratory/Chest: decreased breath sounds Abdomen: soft Vin Otero MD Dec 09, 2019 12:46
[2019-12-09] MEDS ORDERED: NS 500ML IVPB ONE (12:50)
--- NOTE | 2019-12-09 12:55 | NUR ---
NURSE NOTES: PATIENT IS OUT FOR PROCEDURE - EGD WITH POSSIBLE BIOPSY AND PEG PLACEMENT WITH POSSIBLE FEEDING. ALL PROCEDURE PROTOCOL FOLLOWED. PATIENT IS IN STABLE CONDITION.
--- NOTE | 2019-12-09 13:03 | Endoscopy Procedure Note ---
Endoscopy Procedure Note General Indication for Procedure: dysphagia Procedures Performed: EGD, PEG Operative Findings/Diagnosis: same Specimen: none Pt Tolerated Procedure Well: Yes Estimated Blood Loss: none Anesthesia Anesthesiologist: kd medina Anesthesia: MAC Inserted Devices Implant(s) used?: No GI Core Measures 50 yrs or older w/o bx or poly: Not Applicable 10yrs. F/U recommended: Not Applicable Mamadou Johnson MD Dec 09, 2019 13:03
--- NOTE | 2019-12-09 13:27 | Immediate Post-Op Evaluation ---
Immediate Post-Op Evalulation Immediate Post-Op Evalulation Procedure: egd/peg Date of Evaluation: Dec 09, 2019 Time of Evaluation: 13:27 IV Fluids: 300ml 0.9ns Blood Products: none Estimated Blood Loss: negligible Blood Pressure Systolic: 97 Blood Pressure Diastolic: 55 Pulse Rate: 74 Respiratory Rate: 18 O2 Sat by Pulse Oximetry: 99 Temperature (Fahrenheit): 97.3 Pain Score (1-10): 0 Nausea: No Vomiting: No Complications none Patient Status: awake, reacts, patent Hydration Status: adequate Drug: Shobha Jin MD Dec 09, 2019 13:27
--- NOTE | 2019-12-09 13:29 | 48 Hour Post Anesthesia Eval ---
Post Anesthesia Evaluation Procedure: egd/peg Date of Evaluation: Dec 09, 2019 Time of Evaluation: 13:29 Blood Pressure Systolic: 111 0: 61 Pulse Rate: 73 Respiratory Rate: 18 Temperature (Fahrenheit): 97.3 O2 Sat by Pulse Oximetry: 99 Airway: patent Nausea: No Vomiting: No Pain Intensity: 0 Hydration Status: adequate Cardiopulmonary Status: stable Mental Status/LOC: patient returned to baseline Post-Anesthesia Complications: none Follow-up care needed: N/A Shobha Resendiz MD Dec 09, 2019 13:29
--- NOTE | 2019-12-09 13:57 | NUR ---
NURSE NOTES: PATIENT IS BACK FROM PROCEDURE. G-TUBE PACEMENT, 20F INSERTED DUODENAL ULCER. FEEDING ORDER, GLUCERNA 1.2 CONTINUOUS, GOAL IS 55CC/HR, HOLD FOR RESIDUAL GREATER THAN 100CC AND FLUSH 100. V/S T 97.2, HR 82, RR 18, BP 94/52, O2 SAT 98% ON RA. WILL CONTINUE TO MONITOR PATIENT FOR SAFETY.
--- NOTE | 2019-12-09 14:00 | NUR ---
NURSE NOTES: START FEEDING AT 19:57. PER DR SEALS'S ORDER TO START FEEDING, GLUCERNA 1.2 CONTINUOUS. THE GOAL IS AT 55CC/HR. HOLD RESIDUAL GREATER THAN 100CC. WATER FLUSH OF 100CC. WILL CARRY OUT ORDER.
--- NOTE | 2019-12-09 14:18 | Infectious Diseases Prog Note ---
Assessment/Plan Assessment: COVID19 neg x1 (12/01 rapid COVID PCR neg) UTI -u/a wbc tnct, nit neg, leuk +3; ucx >100k ESBL K. pna Afebrile Leukocytosis; recurrent -Bcx NTD Probable PNA -12/01 CXR: Obscured left hemidiaphragm, could indicate pleural fluid and/ orparenchymal consolidation/atelectasis. Correlate with clinical findings Acute encephalopathy/facial droop- Multifocal infarcts -12/01 Brain MRI wo: Multifocal infarcts the largest of which are located within the norberto left of midline as well as the left frontal lobe medially. Multifocal lacunar infarcts are noted scattered bilaterally including the cerebellar hemispheres and the left cerebellar peduncle. Age-related changes. CT head wo: Age-related atrophy and small vessel disease of aging, similar to that noted on the previous study. No acute intracranial pathology. If there is concern for etiology such as early acute lacunar infarcts, magnetic resonance imaging of the brain with diffusion-weighted sequences should be performed for follow-up FRANKY on CKD, worsened, now improvnig -REnal US: Small kidneys bilaterally. No evidence of hydronephrosis. Empty bladder with a Vela catheter. Incidental finding left renal cyst. 12/08 SP EGD/PEG placement Dm2 HTN HLD colon CA sp treatment Alzheimer's dementia fall w/ resultant [facility] resident ([facility]) Plan: -Meropenem #7/7 for ESBL UTI -12/08/19 SP Vancomycin #4 -12/02 Sp Aztreonam #1 -12/01 SP Ceftriaxone x1 -f/u cx -Monitor CBC/CMP, temperatures -aspiration precautions -CBC, CMP am -PEG care -Cdiff if diarrhea Thank you for this consultation. Will continue to follow along with you. Discussed with RN. Subjective Allergies: Coded Allergies: ATENOLOL (Verified Allergy, Unknown, 05/23/16) LOSARTAN (Verified Allergy, Unknown, 05/23/16) SIMVASTATIN (Verified Allergy, Unknown, 05/23/16) Uncoded Allergies: AMLIODIPINE (Allergy, Unknown, 05/23/16) PENICILLIN (Allergy, Unknown, 12/03/19) Tolerated Ceftriaxone on 12/02/19 afebrile leukocytosis sp PEG/EGD today Objective Last 24 Hour Vital Signs Date Time Temp Pulse Resp B/P (MAP) Pulse Ox O2 Delivery O2 Flow Rate FiO2 9/8/20 13:40 97.9 77 20 137/72 99 Nasal Cannula 3 12/09/19 13:35 83 16 129/62 99 Nasal Cannula 3 12/09/19 13:29 73 18 99 12/09/19 13:27 74 18 99 12/09/19 13:25 77 15 121/67 99 Nasal Cannula 3 12/09/19 13:20 73 13 111/61 99 Nasal Cannula 3 12/09/19 13:15 97.3 74 18 97/55 99 Nasal Cannula 3 12/09/19 12:45 74 16 96 Room Air 21 12/09/19 12:00 76 12/09/19 12:00 96.9 76 18 134/67 (89) 96 12/09/19 09:00 Room Air 12/09/19 08:00 97.6 74 16 136/66 (89) 97 12/09/19 08:00 74 12/09/19 04:00 98.0 91 17 131/67 (88) 96 12/09/19 04:00 81 12/09/19 00:00 91 12/09/19 00:00 97.6 91 16 137/78 (97) 97 12/08/19 21:55 89 16 95 Room Air 21 12/08/19 21:00 Room Air 12/08/19 20:00 97.7 86 17 143/75 (97) 97 12/08/19 20:00 84 12/08/19 16:00 96.8 83 20 142/73 (96) 98 12/08/19 16:00 74 Height (Feet): 5 Height (Inches): 6.00 Weight (Pounds): 115 General Appearance: no apparent distress Cardiovascular: normal rate Respiratory/Chest: lungs clear - ant Abdomen: normal bowel sounds, non tender, soft Extremities: no swelling Laboratory Tests Test 12/09/19 05:47 White Blood Count 14.4 K/UL (4.8-10.8) H Red Blood Count 3.66 M/UL (4.70-6.10) L Hemoglobin 9.8 G/DL (14.2-18.0) L Hematocrit 31.3 % (42.0-52.0) L Mean Corpuscular Volume 86 FL (80-99) Mean Corpuscular Hemoglobin 26.7 PG (27.0-31.0) L Mean Corpuscular Hemoglobin Concent 31.2 G/DL (32.0-36.0) L Red Cell Distribution Width 13.2 % (11.6-14.8) Platelet Count 326 K/UL (150-450) Mean Platelet Volume 5.4 FL (6.5-10.1) L Neutrophils (%) (Auto) 84.6 % (45.0-75.0) H Lymphocytes (%) (Auto) 6.7 % (20.0-45.0) L Monocytes (%) (Auto) 8.0 % (1.0-10.0) Eosinophils (%) (Auto) 0.3 % (0.0-3.0) Basophils (%) (Auto) 0.3 % (0.0-2.0) Sodium Level 140 MMOL/L (136-145) Potassium Level 4.7 MMOL/L (3.5-5.1) Chloride Level 102 MMOL/L (98-107) Carbon Dioxide Level 31 MMOL/L (21-32) Anion Gap 7 mmol/L (5-15) Blood Urea Nitrogen 48 mg/dL (7-18) H Creatinine 1.2 MG/DL (0.55-1.30) Estimat Glomerular Filtration Rate 57.1 mL/min (>60) Glucose Level 143 MG/DL (74-106) H Calcium Level 8.9 MG/DL (8.5-10.1) Phosphorus Level 3.3 MG/DL (2.5-4.9) Magnesium Level 2.1 MG/DL (1.8-2.4) Total Bilirubin 0.3 MG/DL (0.2-1.0) Aspartate Amino Transf (AST/SGOT) 32 U/L (15-37) Alanine Aminotransferase (ALT/SGPT) 55 U/L (12-78) Alkaline Phosphatase 77 U/L (46-116) Total Protein 6.4 G/DL (6.4-8.2) Albumin 2.1 G/DL (3.4-5.0) L Globulin 4.3 g/dL Albumin/Globulin Ratio 0.5 (1.0-2.7) L Current Medications Medications (Trade) Dose Ordered Sig/James Route PRN Reason Start Time Stop Time Status Last Admin Dose Admin Acetaminophen (Tylenol) 650 mg Q4H PRN ORAL fever 12/03/19 18:48 01/02/20 18:47 Acetaminophen (Tylenol) 650 mg Q4H PRN ORAL Mild Pain (Pain Scale 1-3) 12/09/19 12:45 12/09/19 18:00 Al Hydroxide/Mg Hydroxide (Mylanta) 15 ml Q1H PRN ORAL gi upset 12/09/19 12:45 12/09/19 18:00 Apixaban (Eliquis) 2.5 mg BID ORAL 12/05/19 09:00 03/04/20 08:59 12/08/19 17:34 Atropine Sulfate (Atropine) 0.5 mg Q5M PRN IV bpm less than 45 12/09/19 12:45 12/09/19 18:00 Barium Sulfate (Varibar Honey) 250 ml NOW PRN MC RAD 12/08/19 14:00 12/11/19 13:57 Barium Sulfate (Varibar [place]) 240 ml NOW PRN MC RAD 12/08/19 14:00 12/11/19 13:57 Barium Sulfate (Varibar Pudding) 230 ml NOW PRN MC RAD 12/08/19 14:00 12/11/19 13:57 Barium Sulfate (Varibar Thin Liquid powder) 148 gm NOW PRN MC RAD 12/08/19 14:00 12/11/19 13:57 Clonidine HCl (Catapres Tab) 0.1 mg Q4H PRN ORAL For High Blood Pressure 12/03/19 19:15 03/01/20 19:14 Dextrose (Dextrose 50%) 25 ml Q30M PRN IV Hypoglycemia 12/03/19 18:45 03/01/20 19:14 Dextrose (Dextrose 50%) 50 ml Q30M PRN IV Hypoglycemia 12/03/19 18:45 03/01/20 19:14 Diphenhydramine HCl (Benadryl) 25 mg Q15M PRN IVP Itching 12/09/19 12:45 12/09/19 18:00 Escitalopram Oxalate (Lexapro) 10 mg DAILY ORAL 12/04/19 09:00 01/02/20 08:59 12/09/19 09:17 Fentanyl Citrate (Sublimaze 100 mcg/2 mL) 25 mcg Q10M PRN IV Moderate Pain (Pain Scale 4-6) 12/09/19 12:45 12/09/19 18:00 Folic Acid (Folate) 2 mg DAILY NG 12/05/19 09:00 01/04/20 08:59 12/09/19 09:18 Hydralazine HCl (Apresoline) 5 mg Q30M PRN IV SBP>160 /DBP>90 12/09/19 12:45 12/09/19 18:00 Insulin Aspart (NovoLOG) BEFORE MEALS AND HS SUBQ 12/03/19 21:00 03/01/20 20:59 12/08/19 11:37 Lansoprazole (Prevacid) 30 mg DAILY GT 12/10/19 09:00 01/09/20 08:59 Meropenem 500 mg/ Sodium Chloride 55 ml @ 110 mls/hr Q12HR@0300,1500 IVPB 12/04/19 03:00 12/09/19 23:59 12/09/19 03:47 Nitroglycerin (Ntg) 0.4 mg Q5M X 3 DOSES PRN SL Prn Chest Pain 12/03/19 18:45 01/01/20 19:14 Ondansetron HCl (Zofran) 4 mg Q6H PRN IVP Nausea & Vomiting 12/03/19 19:15 01/01/20 19:14 Polyethylene Glycol (Miralax) 17 gm BEDTIME ORAL 12/06/19 21:00 01/05/20 20:59 12/08/19 20:33 Promethazine HCl/ Codeine (Phenergan with Codeine) 5 ml Q4H PRN ORAL For Cough 12/03/19 19:15 01/01/20 19:14 Sodium Chloride 1,000 ml @ 10 mls/hr Q24H IVLG 12/09/19 12:33 12/09/19 14:32 Temazepam (Restoril) 15 mg HSPRN PRN ORAL Insomnia 12/03/19 19:15 12/09/19 19:14 Velma Lopez M.D. Dec 09, 2019 14:18
[2019-12-09] MEDS ORDERED: LORazepam Inj 2mg/ml 1ml IV SCH (15:00)
--- NOTE | 2019-12-09 15:00 | NUR ---
NURSE NOTES: PATIENT OFF THE FLOOR FOR MRI BRAIN AND CT OF THE PELVIS.
--- NOTE | 2019-12-09 16:03 | NUR ---
NURSE NOTES: PATIENT IS BACK ON THE FLOOR AND IN STABLE CONDITION.
--- NOTE | 2019-12-09 16:14 | Procedure Note ---
DATE OF PROCEDURE: 12/09/2019 SURGEON: Mamadou Johnson MD. PROCEDURE: Upper endoscopy with PEG placement. ANESTHESIA: Per Dr. Platt. INSTRUMENT: Olympus adult flexible upper endoscope. INDICATION: Dysphagia. REASON FOR PROCEDURE: The procedure, risks, benefits, and possible consequences, including hemorrhage, aspiration, perforation and infection, and alternative treatments, were explained to the patient/legal guardian by Dr. Mamadou Johnson and the patient/legal guardian understood and accepted these risks. DESCRIPTION OF PROCEDURE: After informed consent was obtained and the patient was adequately sedated, Olympus upper endoscope was advanced from the mouth into second portion of the duodenum and retroflexion was performed in the stomach. The patient had one shallow ulceration in the duodenum. Without any active bleeding any adherent clot and the stomach with diffuse gastritis, otherwise normal upper endoscopic examination. Then under endoscopic guidance under sterile condition, a 20-Hungarian pull type of G-tube was successfully placed in the epigastric area. The distance from the tip of the tube to skin was about 2.5 cm in size. The patient tolerated the procedure very well without any complication. SUMMARY OF FINDINGS: 1. Shallow duodenal ulceration. 2. Gastritis. 3. Status post successful PEG placement. RECOMMENDATIONS: Abdominal binder. Elevate the head of the bed at all times. G-tube flush. G-tube care. Start tube feeding later today. We are going to add Prevacid per G-tube given this shallow duodenal ulceration. I want to thank, Dr. Darren Spencer, for this kind referral. Mamadou Johnson M.D. DR: VAMSHI JOB#: [id number] CC: Darren Spencer MD.; Fax#: [phone]
--- NOTE | 2019-12-09 16:54 | Diagnostic Imaging Report ---
Indication: Right hip pain Technique: Noncontrast spiral acquisitions obtained through the pelvis and right hip Multiplanar reconstructions were generated. Total dose length product 148 mGycm. CTDIvol(s) 4 mGy. Radiation dose was minimized using automated exposure control Comparison: Plain radiograph dated 12/06/2019 Findings: Exam is limited due to patient being contracted. No evidence of acute fracture. No dislocation. The joint spaces are preserved. There is some edema of the right buttock region subcutaneous fat, but no evidence of soft tissue contusion demonstrated. No evidence of pelvic fracture. The rectum is distended by dense stool. There is a Vela catheter within the bladder. A small amount of urine within the bladder despite Vela catheter. There are colonic diverticula. Impression: No evidence of acute bony trauma or significant soft tissue trauma Rectal fecal impaction Colonic diverticulosis The CT scanner at [facility] is accredited by the [employer] and the scans are performed using protocols designed to limit radiation exposure to as low as reasonably achievable to attain images of sufficient resolution adequate for diagnostic evaluation.
--- NOTE | 2019-12-09 17:34 | NUR ---
CASE MANAGEMENT:REVIEW 12/09/19 SI: MULTIFOCAL INFARCTS. KLEBSIELLA UTI. DYSPHAGIA 96.9 76 18 134/67 99% ON 3L/NC WBC+14.4 BUN+48 IS: PEG PLACEMENT TODAY : TELEMETRY STATUS DCP: FROM [facility]
--- NOTE | 2019-12-09 17:54 | Diagnostic Imaging Report ---
Indications: Altered mental status Technique: 3D [id number] images obtained through the [place] [facility] [place]. MIP reconstructions were generated in multiple rotational projections Comparison: Brain MRI dated 12/02/2019 Findings: There is some image degradation due to motion artifact. Codominant patent distal bilateral vertebral arteries. Patent and nonstenotic basilar artery. Patent nonstenotic bilateral posterior cerebral arteries. Neither posterior communicating artery demonstrated. Patent nonstenotic bilateral distal internal carotid arteries, bilateral middle cerebral arteries and proximal branches. Patent nonstenotic bilateral anterior cerebral arteries. There is questionably fusiform ectasia of the distal left internal carotid artery and proximal M1, although this is likely due to motion artifact. No definite aneurysm. Impression: No MRI evidence of proximal intracranial cerebrovascular insufficiency
--- NOTE | 2019-12-09 18:01 | Internal Med Progress Note ---
Subjective Date of Service: Dec 09, 2019 Physician Name Darren Pineda Attending Physician Darren Spencer MD Current Medications Medications (Trade) Dose Ordered Sig/James Route PRN Reason Start Time Stop Time Status Last Admin Dose Admin Acetaminophen (Tylenol) 650 mg Q4H PRN ORAL fever 12/03/19 18:48 01/02/20 18:47 Apixaban (Eliquis) 2.5 mg BID ORAL 12/05/19 09:00 03/04/20 08:59 12/08/19 17:34 Barium Sulfate (Varibar Honey) 250 ml NOW PRN MC RAD 12/08/19 14:00 12/11/19 13:57 Barium Sulfate (Varibar [place]) 240 ml NOW PRN MC RAD 12/08/19 14:00 12/11/19 13:57 Barium Sulfate (Varibar Pudding) 230 ml NOW PRN MC RAD 12/08/19 14:00 12/11/19 13:57 Barium Sulfate (Varibar Thin Liquid powder) 148 gm NOW PRN MC RAD 12/08/19 14:00 12/11/19 13:57 Clonidine HCl (Catapres Tab) 0.1 mg Q4H PRN ORAL For High Blood Pressure 12/03/19 19:15 03/01/20 19:14 Dextrose (Dextrose 50%) 25 ml Q30M PRN IV Hypoglycemia 12/03/19 18:45 03/01/20 19:14 Dextrose (Dextrose 50%) 50 ml Q30M PRN IV Hypoglycemia 12/03/19 18:45 03/01/20 19:14 Escitalopram Oxalate (Lexapro) 10 mg DAILY ORAL 12/04/19 09:00 01/02/20 08:59 12/09/19 09:17 Folic Acid (Folate) 2 mg DAILY NG 12/05/19 09:00 01/04/20 08:59 12/09/19 09:18 Insulin Aspart (NovoLOG) BEFORE MEALS AND HS SUBQ 12/03/19 21:00 03/01/20 20:59 12/08/19 11:37 Lansoprazole (Prevacid) 30 mg DAILY GT 12/10/19 09:00 01/09/20 08:59 Meropenem 500 mg/ Sodium Chloride 55 ml @ 110 mls/hr Q12HR@0300,1500 IVPB 12/04/19 03:00 12/09/19 23:59 12/09/19 17:20 Nitroglycerin (Ntg) 0.4 mg Q5M X 3 DOSES PRN SL Prn Chest Pain 12/03/19 18:45 01/01/20 19:14 Ondansetron HCl (Zofran) 4 mg Q6H PRN IVP Nausea & Vomiting 12/03/19 19:15 01/01/20 19:14 Polyethylene Glycol (Miralax) 17 gm BEDTIME ORAL 12/06/19 21:00 01/05/20 20:59 12/08/19 20:33 Promethazine HCl/ Codeine (Phenergan with Codeine) 5 ml Q4H PRN ORAL For Cough 12/03/19 19:15 01/01/20 19:14 Temazepam (Restoril) 15 mg HSPRN PRN ORAL Insomnia 12/03/19 19:15 12/09/19 19:14 Allergies: Coded Allergies: ATENOLOL (Verified Allergy, Unknown, 05/23/16) LOSARTAN (Verified Allergy, Unknown, 05/23/16) SIMVASTATIN (Verified Allergy, Unknown, 05/23/16) Uncoded Allergies: AMLIODIPINE (Allergy, Unknown, 05/23/16) PENICILLIN (Allergy, Unknown, 12/03/19) Tolerated Ceftriaxone on 12/02/19 ROS Limited/Unobtainable: Yes Subjective 89 YO M admitted with atlered mental status. Now UTI. Cover for Int [facility]-DR Spencer Objective Last Vital Signs Date Time Temp Pulse Resp B/P (MAP) Pulse Ox O2 Delivery O2 Flow Rate FiO2 12/09/19 16:00 92 12/09/19 16:00 96.6 18 106/56 (73) 96 12/09/19 13:40 Nasal Cannula 3 12/09/19 12:45 21 Laboratory Tests Test 12/09/19 05:47 White Blood Count 14.4 K/UL (4.8-10.8) H Red Blood Count 3.66 M/UL (4.70-6.10) L Hemoglobin 9.8 G/DL (14.2-18.0) L Hematocrit 31.3 % (42.0-52.0) L Mean Corpuscular Volume 86 FL (80-99) Mean Corpuscular Hemoglobin 26.7 PG (27.0-31.0) L Mean Corpuscular Hemoglobin Concent 31.2 G/DL (32.0-36.0) L Red Cell Distribution Width 13.2 % (11.6-14.8) Platelet Count 326 K/UL (150-450) Mean Platelet Volume 5.4 FL (6.5-10.1) L Neutrophils (%) (Auto) 84.6 % (45.0-75.0) H Lymphocytes (%) (Auto) 6.7 % (20.0-45.0) L Monocytes (%) (Auto) 8.0 % (1.0-10.0) Eosinophils (%) (Auto) 0.3 % (0.0-3.0) Basophils (%) (Auto) 0.3 % (0.0-2.0) Sodium Level 140 MMOL/L (136-145) Potassium Level 4.7 MMOL/L (3.5-5.1) Chloride Level 102 MMOL/L (98-107) Carbon Dioxide Level 31 MMOL/L (21-32) Anion Gap 7 mmol/L (5-15) Blood Urea Nitrogen 48 mg/dL (7-18) H Creatinine 1.2 MG/DL (0.55-1.30) Estimat Glomerular Filtration Rate 57.1 mL/min (>60) Glucose Level 143 MG/DL (74-106) H Calcium Level 8.9 MG/DL (8.5-10.1) Phosphorus Level 3.3 MG/DL (2.5-4.9) Magnesium Level 2.1 MG/DL (1.8-2.4) Total Bilirubin 0.3 MG/DL (0.2-1.0) Aspartate Amino Transf (AST/SGOT) 32 U/L (15-37) Alanine Aminotransferase (ALT/SGPT) 55 U/L (12-78) Alkaline Phosphatase 77 U/L (46-116) Total Protein 6.4 G/DL (6.4-8.2) Albumin 2.1 G/DL (3.4-5.0) L Globulin 4.3 g/dL Albumin/Globulin Ratio 0.5 (1.0-2.7) L Intake and Output 12/08/19 12/09/19 19:00 07:00 Intake Total 155 ml 320 ml Output Total 500 ml 600 ml Balance -345 ml -280 ml Intake Free Water 100 ml 100 ml Tube Feeding 55 ml 220 ml Output Urine Total 500 ml 600 ml # Bowel Movements 1 Objective Objective GENERAL: open eyes more responsive, cachectic, chronic ill appearing. HEENT: Pupils equal and reactive to light, anicteric, NG tube. NECK: Supple. No JVD. LUNGS: Fair bilateral air entry. No wheezing, rhonchi. Decreased air in the bases. HEART: S1, S2. Distant heart sounds. No murmur or gallop. ABDOMEN: Soft, nondistended, nontender. No rebound tenderness. No fluid shift. : Vela cath. EXTREMITIES: No cyanosis, clubbing, or edema. Muscle atrophy to bilateral lower extremities noted. NEUROLOGIC: Cranial nerves II to XII grossly intact, motor right side is weaker than left side. RECTAL/GENITOURINARY: Refused and deferred PSYCHIATRIC: Mood and affect unable to obtain secondary to the patient's status. Assessment/Plan Assessment/Plan Assessment/Plan Assessment/Plan ASSESSMENT: 1. Acute encephalopathy, most likely secondary to toxic metabolic encephalopathy as well as acute CVA. 2. Acute ESBL Klebsiella urinary tract infection. 3. Diabetes type 2. 4. Acute kidney injury, on chronic renal insufficiency. 5. Multifocal infarction, confirmed on MRI. 6. Hypertension. 7. Dyslipidemia. 8. Colon cancer, status post resection. 9. Alzheimer dementia. 10. History of fall with subdural hematoma, resolved. 11. Severe protein-calorie malnutrition. 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 PLAN: In telemetry. Follow up with laboratory and culture. Abx: Meropenem. ID consultation, Dr. Lopez, pulmonary consultation, Dr. Vera, Cardiology consultation with Dr. Beka Saleh, Nephrology consultation with Dr. Vin Otero. Code status: Full code. DVT prophylaxis: Eliquis. Tolerated Tube feeding @ 50 cc/hr. Bedside swallow study. Darren Pineda MD Dec 09, 2019 18:01
--- NOTE | 2019-12-09 19:14 | NUR ---
NURSE HAND-OFF REPORT: Important Events on Shift:peg placement, ct hip amd mra head no contrast Patient Status: Diet: Pending Orders: Pending Results/Labs: Pending MD notification: Latest Vital Signs: Temperature 96.6 , Pulse 92 , B/P 106 /56 , Respiratory Rate 18 , O2 SAT 96 , Nasal Cannula, O2 Flow Rate 3 . Vital Sign Comment: STABLE EKG Rhythm: Sinus Rhythm Rhythm change?: N MD Notified?: N -Dr Delfino RUFFIN Response: Latest Zhang Fall Score: 50 Fall Risk: High Risk Safety Measures: Call light Within Reach, Bed Alarm Zone 2, Side Rails Side Rails x3, Bed position Low and Locked. Fall Precautions: Yellow Socks Yellow Gown Report given to .
--- NOTE | 2019-12-09 19:20 | NUR ---
NURSE NOTES: Pt received from ELLI So. Pt is in bed resting comfortably. Pt is AxO x1 and opens eyes to voice, pt nods in response to questions. Pt is on room air and breathing unlabored sating 96%. Pt started tube feeding today Glucerna 1.2 30 ml/hr with goal of 55 ml/hr; gtube site is clean and dry.. Pt has hamlin catheter patent and draining well to gravity. Pt has restraints PMSC and skin integrity assessed. Pt has LHand 22G SL patent dry and intact. Bed locked and in lowest position with call light within reach. Will continue to monitor.
[2019-12-09] MEDS: Miralax 17gm pkt ORAL SCH (22:01)
[2019-12-10] VITALS: BP 127/51
--- NOTE | 2019-12-10 01:36 | Cardiology Report ---
APPROVED REPORT EXAM: Two-dimensional and M-mode echocardiogram with Doppler and color Doppler. INDICATION LV FUNCTION M-Mode DIMENSIONS IVSd1.3 (0.7-1.1cm)Left Atrium (MM)3.2 (1.6-4.0cm) LVDd3.7 (3.5-5.6cm)Aortic Root3.6 (2.0-3.7cm) PWd0.7 (0.7-1.1cm)Aortic Cusp Exc.1.3 (1.5-2.0cm) IVSs1.2 cm LVDs2.6 (2.5-4.0cm) PWs0.8 cm <Conclusion> Technically difficult study. Normal left ventricular chamber size, systolic function and wall motion to extent visualized. Left ventricular ejection fraction estimated to be 55%. Mild left ventricular hypertrophy. Anterior Echo-free space, may be due to pericardial fat or effusion. Mild left atrial enlargement . Right cardiac chamber sizes are within normal limits. Aortic valve calcification with decreased cusp excursion c/w aortic stenosis. Heavily thickened mitral valve leaflets with normal excursion. Mitral annulus and aortic root calcification. Pulmonic valve not well visualized. Normal tricuspid valve structure. IVC at normal size with physiologic collapse. A color flow and spectral Doppler study was performed and revealed: Moderate aortic regurgitation. Peak aortic valve gradient of 8 mm Hg and a mean of 5 mmHg. Moderate mitral regurgitation. Peak mitral valve gradient of 7 mm Hg and a mean of 3 mmHg. Mitral diastolic velocities suggest reduced left ventricular relaxation c/w mild LV diastolic dysfunction (Grade I ). Trace tricuspid regurgitation. Tricuspid systolic velocities suggests peak right ventricular systolic pressure of 10 mmHg. Pulmonic regurgitation present.
--- NOTE | 2019-12-10 01:37 | Cardiology Report ---
APPROVED REPORT EKG Measurement Heart [id number] <Conclusion> Normal sinus rhythm Left axis deviation Right bundle branch block Possible Inferior infarct, age undetermined Abnormal ECG
[2019-12-10 04:00] VITALS: BP 99/51
[2019-12-10] MEDS: NovoLOG Insulin Flexpen SUBQ SCH ×4 (06:31→21:00)
--- NOTE | 2019-12-10 07:15 | NUR ---
NURSE HAND-OFF REPORT: Important Events on Shift:Pt tube feeding increased to 40 ml/hr. Insulin given per sliding scale Patient Status: Stable Diet: Glucerna 1.2 40 ml/hr Pending Results/Labs:AM Labs Latest Vital Signs: Temperature 98.8 , Pulse 88 , B/P 99 /51 , Respiratory Rate 18 , O2 SAT 96 , Room Air, O2 Flow Rate 3 . Vital Sign Comment: VSS EKG Rhythm: Sinus Rhythm Rhythm change?: N Notified?: N -Dr Delfino RUFFIN Response: Latest Zhang Fall Score: 50 Fall Risk: High Risk Safety Measures: Call light Within Reach, Bed Alarm Zone 2, Side Rails Side Rails x3, Bed position Low and Locked. Fall Precautions: Yellow Socks Yellow Gown Report given to ELLI So.
--- NOTE | 2019-12-10 07:27 | NUR ---
NURSE NOTES: RECEIVED PATIENT FROM ISMA/DAVIAN RN'S IN BED. NO S/S OF PAIN OR RESPIRATORY DISTRESS NOTED. G-TUBE IS INTACT AND PATENT, GLUCERNA 1.2 RUNNING AT 40CC/HR, GOAL IS 55CC/HR AND TOLERATING WELL. BED IS ON LOWEST LEVEL WITH BEDSIDE RAILS UP X3. CALL LIGHT IS WITHIN REACH. WILL CONTINUE WITH THE PLAN OF CARE.
[2019-12-10 07:28] LABS: BASOPHILS % (AUTO) 1.4 % (0.0-2.0); EOSINOPHILS % (AUTO) 0.1 % (0.0-3.0); HEMATOCRIT 28.4 % (42.0-52.0); HEMOGLOBIN 9.1 G/DL (14.2-18.0); LYMPHOCYTES % (AUTO) 6.5 % (20.0-45.0); MEAN CORPUSCULAR VOLUME 84 FL (80-99); MONOCYTES % (AUTO) 9.9 % (1.0-10.0); PLATELET COUNT 336 K/UL (150-450); RED BLOOD COUNT 3.39 M/UL (4.70-6.10); RED CELL DISTRIBUTION WIDTH 13.8 % (11.6-14.8); WHITE BLOOD COUNT 10.5 K/UL (4.8-10.8)
[2019-12-10 07:54] LABS: ALANINE AMINOTRANSFERASE 42 U/L (12-78); ALBUMIN 1.9 G/DL (3.4-5.0); ALBUMIN/GLOBULIN RATIO 0.5 (1.0-2.7); ALKALINE PHOSPHATASE 73 U/L (46-116); ANION GAP 5 mmol/L (5-15); ASPARTATE AMINO TRANSFERASE 34 U/L (15-37); BILIRUBIN,TOTAL 0.3 MG/DL (0.2-1.0); BLOOD UREA NITROGEN 60 mg/dL (7-18); CALCIUM 8.1 MG/DL (8.5-10.1); CARBON DIOXIDE 32 MMOL/L (21-32); CHLORIDE 104 MMOL/L (98-107); CREATININE 1.5 MG/DL (0.55-1.30); PHOSPHORUS 3.6 MG/DL (2.5-4.9); POTASSIUM 4.4 MMOL/L (3.5-5.1); SODIUM 141 MMOL/L (136-145)
[2019-12-10 08:00] VITALS: BP 99/46
[2019-12-10] MEDS: Eliquis 2.5mg tablet ORAL SCH ×2 (09:30→18:33)
--- NOTE | 2019-12-10 10:06 | General Progress Note ---
Assessment/Plan Assessment/Plan: anemia AMS dysphagia DM h/o colon ca RI s/p PEG GTF anemia work up fu labs Subjective ROS Limited/Unobtainable: No Allergies: Coded Allergies: ATENOLOL (Verified Allergy, Unknown, 05/23/16) LOSARTAN (Verified Allergy, Unknown, 05/23/16) SIMVASTATIN (Verified Allergy, Unknown, 05/23/16) Uncoded Allergies: AMLIODIPINE (Allergy, Unknown, 05/23/16) PENICILLIN (Allergy, Unknown, 12/03/19) Tolerated Ceftriaxone on 12/02/19 Objective Last 24 Hour Vital Signs Date Time Temp Pulse Resp B/P (MAP) Pulse Ox O2 Delivery O2 Flow Rate FiO2 12/10/19 04:00 88 12/10/19 04:00 98.8 85 18 99/51 (67) 96 12/10/19 00:00 88 12/10/19 00:00 98.5 77 16 127/51 (76) 96 12/09/19 21:00 Room Air 12/09/19 20:00 98.2 80 17 123/54 (77) 96 12/09/19 19:00 92 18 96 Room Air 21 12/09/19 16:00 92 12/09/19 16:00 96.6 92 18 106/56 (73) 96 12/09/19 15:30 86 18 112/61 95 12/09/19 15:00 89 18 106/56 94 12/09/19 13:40 97.9 77 20 137/72 99 Nasal Cannula 3 12/09/19 13:35 83 16 129/62 99 Nasal Cannula 3 12/09/19 13:29 73 18 99 12/09/19 13:27 74 18 99 12/09/19 13:25 77 15 121/67 99 Nasal Cannula 3 12/09/19 13:20 73 13 111/61 99 Nasal Cannula 3 12/09/19 13:15 97.3 74 18 97/55 99 Nasal Cannula 3 12/09/19 12:45 74 16 96 Room Air 21 12/09/19 12:00 76 12/09/19 12:00 96.9 76 18 134/67 (89) 96 Intake and Output 12/09/19 12/10/19 19:00 07:00 Intake Total 500 ml 40 ml Output Total 400 ml 300 ml Balance 100 ml -260 ml IV Total 500 ml Tube Feeding 40 ml Output Urine Total 400 ml 300 ml # Bowel Movements 1 1 Laboratory Tests 12/10/19 06:48: White Blood Count 10.5, Red Blood Count 3.39L, Hemoglobin 9.1L, Hematocrit 28.4L , Mean Corpuscular Volume 84, Mean Corpuscular Hemoglobin 26.9L, Mean Corpuscular Hemoglobin Concent 32.1, Red Cell Distribution Width 13.8, Platelet Count 336, Mean Platelet Volume 5.6L, Neutrophils (%) (Auto) 82.0H, Lymphocytes (%) (Auto) 6.5L, Monocytes (%) (Auto) 9.9, Eosinophils (%) (Auto) 0.1, Basophils (%) (Auto) 1.4, Erythrocyte Sedimentation Rate 86H, Sodium Level 141, Potassium Level 4.4, Chloride Level 104, Carbon Dioxide Level 32, Anion Gap 5, Blood Urea Nitrogen 60H, Creatinine 1.5H, Estimat Glomerular Filtration Rate 44.2, Glucose Level 173H, Calcium Level 8.1L, Phosphorus Level 3.6, Magnesium Level 2.3, Total Bilirubin 0.3, Aspartate Amino Transf (AST/SGOT) 34, Alanine Aminotransferase (ALT/SGPT) 42, Alkaline Phosphatase 73, C-Reactive Protein, Quantitative 9.4H, Total Protein 5.8L, Albumin 1.9L, Globulin 3.9, Albumin/ Globulin Ratio 0.5L Height (Feet): 5 Height (Inches): 6.00 Weight (Pounds): 115 General Appearance: no apparent distress EENT: normal ENT inspection Neck: supple Cardiovascular: normal rate Respiratory/Chest: decreased breath sounds Abdomen: hypoactive bowel sounds Extremities: non-tender Mamadou Johnson MD Dec 10, 2019 10:06
--- NOTE | 2019-12-10 10:42 | Internal Med Progress Note ---
Subjective Date of Service: Dec 10, 2019 Physician Name Darren Pineda Attending Physician Darren Spencer MD Current Medications Medications (Trade) Dose Ordered Sig/James Route PRN Reason Start Time Stop Time Status Last Admin Dose Admin Acetaminophen (Tylenol) 650 mg Q4H PRN ORAL fever 12/03/19 18:48 01/02/20 18:47 Apixaban (Eliquis) 2.5 mg BID ORAL 12/05/19 09:00 03/04/20 08:59 12/10/19 09:30 Barium Sulfate (Varibar Honey) 250 ml NOW PRN MC RAD 12/08/19 14:00 12/11/19 13:57 Barium Sulfate (Varibar [place]) 240 ml NOW PRN MC RAD 12/08/19 14:00 12/11/19 13:57 Barium Sulfate (Varibar Pudding) 230 ml NOW PRN MC RAD 12/08/19 14:00 12/11/19 13:57 Barium Sulfate (Varibar Thin Liquid powder) 148 gm NOW PRN MC RAD 12/08/19 14:00 12/11/19 13:57 Clonidine HCl (Catapres Tab) 0.1 mg Q4H PRN ORAL For High Blood Pressure 12/03/19 19:15 03/01/20 19:14 Dextrose (Dextrose 50%) 25 ml Q30M PRN IV Hypoglycemia 12/03/19 18:45 03/01/20 19:14 Dextrose (Dextrose 50%) 50 ml Q30M PRN IV Hypoglycemia 12/03/19 18:45 03/01/20 19:14 Escitalopram Oxalate (Lexapro) 10 mg DAILY ORAL 12/04/19 09:00 01/02/20 08:59 12/10/19 09:30 Folic Acid (Folate) 2 mg DAILY NG 12/05/19 09:00 01/04/20 08:59 12/10/19 09:30 Insulin Aspart (NovoLOG) BEFORE MEALS AND HS SUBQ 12/03/19 21:00 03/01/20 20:59 12/10/19 06:31 Lansoprazole (Prevacid) 30 mg DAILY GT 12/10/19 09:00 01/09/20 08:59 12/10/19 09:30 Nitroglycerin (Ntg) 0.4 mg Q5M X 3 DOSES PRN SL Prn Chest Pain 12/03/19 18:45 01/01/20 19:14 Ondansetron HCl (Zofran) 4 mg Q6H PRN IVP Nausea & Vomiting 12/03/19 19:15 01/01/20 19:14 Polyethylene Glycol (Miralax) 17 gm BEDTIME ORAL 12/06/19 21:00 01/05/20 20:59 12/09/19 22:01 Promethazine HCl/ Codeine (Phenergan with Codeine) 5 ml Q4H PRN ORAL For Cough 12/03/19 19:15 01/01/20 19:14 Allergies: Coded Allergies: ATENOLOL (Verified Allergy, Unknown, 05/23/16) LOSARTAN (Verified Allergy, Unknown, 05/23/16) SIMVASTATIN (Verified Allergy, Unknown, 05/23/16) Uncoded Allergies: AMLIODIPINE (Allergy, Unknown, 05/23/16) PENICILLIN (Allergy, Unknown, 12/03/19) Tolerated Ceftriaxone on 12/02/19 ROS Limited/Unobtainable: Yes Subjective 89 YO M admitted with atlered mental status. Now UTI. Cover for Int Med-DR Spencer. S/P colonoscopy/EGD 12/09/19 Objective Last Vital Signs Date Time Temp Pulse Resp B/P (MAP) Pulse Ox O2 Delivery O2 Flow Rate FiO2 12/10/19 09:00 Room Air 12/10/19 08:00 98.8 79 18 99/46 (63) 94 12/09/19 19:00 21 12/09/19 13:40 3 Laboratory Tests Test 12/09/19 11:32 12/09/19 17:06 12/09/19 20:14 12/10/19 06:48 POC Whole Blood Glucose Pending 134 MG/DL (74-106) H Pending White Blood Count 10.5 K/UL (4.8-10.8) Red Blood Count 3.39 M/UL (4.70-6.10) L Hemoglobin 9.1 G/DL (14.2-18.0) L Hematocrit 28.4 % (42.0-52.0) L Mean Corpuscular Volume 84 FL (80-99) Mean Corpuscular Hemoglobin 26.9 PG (27.0-31.0) L Mean Corpuscular Hemoglobin Concent 32.1 G/DL (32.0-36.0) Red Cell Distribution Width 13.8 % (11.6-14.8) Platelet Count 336 K/UL (150-450) Mean Platelet Volume 5.6 FL (6.5-10.1) L Neutrophils (%) (Auto) 82.0 % (45.0-75.0) H Lymphocytes (%) (Auto) 6.5 % (20.0-45.0) L Monocytes (%) (Auto) 9.9 % (1.0-10.0) Eosinophils (%) (Auto) 0.1 % (0.0-3.0) Basophils (%) (Auto) 1.4 % (0.0-2.0) Erythrocyte Sedimentation Rate 86 MM/HR (0-20) H Sodium Level 141 MMOL/L (136-145) Potassium Level 4.4 MMOL/L (3.5-5.1) Chloride Level 104 MMOL/L (98-107) Carbon Dioxide Level 32 MMOL/L (21-32) Anion Gap 5 mmol/L (5-15) Blood Urea Nitrogen 60 mg/dL (7-18) H Creatinine 1.5 MG/DL (0.55-1.30) H Estimat Glomerular Filtration Rate 44.2 mL/min (>60) Glucose Level 173 MG/DL (74-106) H Calcium Level 8.1 MG/DL (8.5-10.1) L Phosphorus Level 3.6 MG/DL (2.5-4.9) Magnesium Level 2.3 MG/DL (1.8-2.4) Total Bilirubin 0.3 MG/DL (0.2-1.0) Aspartate Amino Transf (AST/SGOT) 34 U/L (15-37) Alanine Aminotransferase (ALT/SGPT) 42 U/L (12-78) Alkaline Phosphatase 73 U/L (46-116) C-Reactive Protein, Quantitative 9.4 mg/dL (0.00-0.90) H Total Protein 5.8 G/DL (6.4-8.2) L Albumin 1.9 G/DL (3.4-5.0) L Globulin 3.9 g/dL Albumin/Globulin Ratio 0.5 (1.0-2.7) L Intake and Output 9/8/20 9/9/20 19:00 07:00 Intake Total 500 ml 40 ml Output Total 400 ml 300 ml Balance 100 ml -260 ml IV Total 500 ml Tube Feeding 40 ml Output Urine Total 400 ml 300 ml # Bowel Movements 1 1 Objective Objective GENERAL: open eyes more responsive, cachectic, chronic ill appearing. HEENT: Pupils equal and reactive to light, anicteric, NG tube. NECK: Supple. No JVD. LUNGS: Fair bilateral air entry. No wheezing, rhonchi. Decreased air in the bases. HEART: S1, S2. Distant heart sounds. No murmur or gallop. ABDOMEN: Soft, nondistended, nontender. No rebound tenderness. No fluid shift. : Vela cath. EXTREMITIES: No cyanosis, clubbing, or edema. Muscle atrophy to bilateral lower extremities noted. NEUROLOGIC: Cranial nerves II to XII grossly intact, motor right side is weaker than left side. RECTAL/GENITOURINARY: Refused and deferred PSYCHIATRIC: Mood and affect unable to obtain secondary to the patient's status. Assessment/Plan Assessment/Plan Assessment/Plan Assessment/Plan ASSESSMENT: 1. Acute encephalopathy, most likely secondary to toxic metabolic encephalopathy as well as acute CVA. 2. Acute ESBL Klebsiella urinary tract infection. 3. Diabetes type 2. 4. Acute kidney injury, on chronic renal insufficiency. 5. Multifocal infarction, confirmed on MRI. 6. Hypertension. 7. Dyslipidemia. 8. Colon cancer, status post resection. 9. Alzheimer dementia. 10. History of fall with subdural hematoma, resolved. 11. Severe protein-calorie malnutrition. 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 PLAN: In telemetry. Follow up with laboratory and culture. Abx: S/P Meropenem. ID consultation, Dr. Lopez, pulmonary consultation, Dr. Vera, Cardiology consultation with Dr. Beka Saleh, Nephrology consultation with Dr. Vin Otero. Code status: Full code. DVT prophylaxis: Eliquis. Tolerated Tube feeding @ 50 cc/hr. S/P endoscopy/colonoscopy 12/09/19 Darren Pineda MD Dec 10, 2019 10:42
[2019-12-10 12:00] VITALS: BP 110/48
--- NOTE | 2019-12-10 13:10 | NUR ---
DISCHARGE PLANNING PATIENT HAS BEEN REFERRED BACK TO [facility] P: [phone] F: [phone] Addendum: 12/10/19 at 1401 by LAURIE ARTHUR LVN LVN FOLLOW UP CALL MADE TO [facility] S/W [facility]. PATIENT ACCEPTED TO RETURN UPON DC TO BED 19-B SKILLED
--- NOTE | 2019-12-10 13:25 | NUR ---
RD ASSESSMENT & RECOMMENDATIONS SEE CARE ACTIVITY FOR COMPLETE ASSESSMENT DAILY ESTIMATED NEEDS: Needs based on Underweight, wasting, wound 40kg 30-35 kcals/kg [id number] total kcals 1.25-2 g protein/kg 50-80 g total protein 25-30ml/kcal mL/kg 7124-2412 total fluid mLs NUTRITION DIAGNOSIS: Increased kcal and pro needs r/t underweight status as evidenced by low BMI, moderate to severe generalized wasting,admitted w/ multiple wounds, including DTI x 5, non-blanching erythema x2. CURRENT TF:Glucerna 1.2 @55ml/hr x24 hrs- exceeds 113% of est kcal needs ENTERAL NUTRITION RECOMMENDATIONS: S/p PEG Glucerna 1.2 @ 45ml/hr x24 hrs to provide 1080ml, 1296 kcal, 65g pro, 869ml free h2O - LOWER goal rate to 45ml/hr x 24 hrs not to exceed kcal needs meets 100% est kcal/prot needs - H20 flush of 110mL q 8 hrs - HOB over 30 degrees ADDITIONAL RECOMMENDATIONS: 1) Calibrated bed scale wts daily 2) Wound healing: add Vit C 500mg QD + Harsha BID 3) Monitor lytes w/ TF, replete as needed 4) Monitor for readiness for oral diet vs PEG 5) Monitor BGs: consider DC D5 IVF, increase H20 flushes instead BG >150.
--- NOTE | 2019-12-10 13:49 | Infectious Diseases Prog Note ---
Assessment/Plan Assessment: COVID19 neg x1 (12/01 rapid COVID PCR neg) UTI, SP rx -u/a wbc tnct, nit neg, leuk +3; ucx >100k ESBL K. pna Afebrile Leukocytosis; recurrent- SP -Bcx NTD Probable PNA -12/01 CXR: Obscured left hemidiaphragm, could indicate pleural fluid and/ orparenchymal consolidation/atelectasis. Correlate with clinical findings Acute encephalopathy/facial droop- Multifocal infarcts -12/08 MRI/MRA head/neck: No MRI evidence of proximal intracranial cerebrovascular insufficiency -12/01 Brain MRI wo: Multifocal infarcts the largest of which are located within the norberto left of midline as well as the left frontal lobe medially. Multifocal lacunar infarcts are noted scattered bilaterally including the cerebellar hemispheres and the left cerebellar peduncle. Age-related changes. CT head wo: Age-related atrophy and small vessel disease of aging, similar to that noted on the previous study. No acute intracranial pathology. If there is concern for etiology such as early acute lacunar infarcts, magnetic resonance imaging of the brain with diffusion-weighted sequences should be performed for follow-up FRANKY on CKD, worsened, now improvnig -REnal US: Small kidneys bilaterally. No evidence of hydronephrosis. Empty bladder with a Vela catheter. Incidental finding left renal cyst. 12/08 SP EGD/PEG placement R hip pain -R hip CT: No evidence of acute bony trauma or significant soft tissue trauma. Rectal fecal impaction. Colonic diverticulosis Dm2 HTN HLD colon CA sp treatment Alzheimer's dementia fall w/ resultant [facility] resident ([facility]) Plan: -Continue to monitor off abx -12/08 SP Meropenem #7 -/10/19 SP Vancomycin #4 -12/02 Sp Aztreonam #1 -12/01 SP Ceftriaxone x1 -f/u cx -Monitor CBC/CMP, temperatures -aspiration precautions -PEG care -Cdiff if diarrhea Thank you for this consultation. Will continue to follow along with you. Discussed with RN. Subjective Allergies: Coded Allergies: ATENOLOL (Verified Allergy, Unknown, 05/23/16) LOSARTAN (Verified Allergy, Unknown, 05/23/16) SIMVASTATIN (Verified Allergy, Unknown, 05/23/16) Uncoded Allergies: AMLIODIPINE (Allergy, Unknown, 05/23/16) PENICILLIN (Allergy, Unknown, 12/03/19) Tolerated Ceftriaxone on 12/02/19 afebrile leukocytosis resolved now off abx Objective Last 24 Hour Vital Signs Date Time Temp Pulse Resp B/P (MAP) Pulse Ox O2 Delivery O2 Flow Rate FiO2 12/10/19 12:43 88 18 96 Room Air 21 12/10/19 12:00 87 12/10/19 12:00 98.0 85 18 110/48 (68) 95 12/10/19 09:00 Room Air 12/10/19 08:00 98.8 79 18 99/46 (63) 94 12/10/19 08:00 79 12/10/19 04:00 88 12/10/19 04:00 98.8 85 18 99/51 (67) 96 12/10/19 00:00 88 12/10/19 00:00 98.5 77 16 127/51 (76) 96 12/09/19 21:00 Room Air 12/09/19 20:00 98.2 80 17 123/54 (77) 96 12/09/19 19:00 92 18 96 Room Air 21 12/09/19 16:00 92 12/09/19 16:00 96.6 92 18 106/56 (73) 96 12/09/19 15:30 86 18 112/61 95 12/09/19 15:00 89 18 106/56 94 Height (Feet): 5 Height (Inches): 6.00 Weight (Pounds): 115 General Appearance: no apparent distress Cardiovascular: normal rate Respiratory/Chest: lungs clear - ant Abdomen: normal bowel sounds, non tender, soft Extremities: no swelling Laboratory Tests Test 12/09/19 17:06 12/09/19 20:14 12/10/19 06:25 12/10/19 06:48 POC Whole Blood Glucose 134 MG/DL (74-106) H Pending 168 MG/DL (74-106) H White Blood Count 10.5 K/UL (4.8-10.8) Red Blood Count 3.39 M/UL (4.70-6.10) L Hemoglobin 9.1 G/DL (14.2-18.0) L Hematocrit 28.4 % (42.0-52.0) L Mean Corpuscular Volume 84 FL (80-99) Mean Corpuscular Hemoglobin 26.9 PG (27.0-31.0) L Mean Corpuscular Hemoglobin Concent 32.1 G/DL (32.0-36.0) Red Cell Distribution Width 13.8 % (11.6-14.8) Platelet Count 336 K/UL (150-450) Mean Platelet Volume 5.6 FL (6.5-10.1) L Neutrophils (%) (Auto) 82.0 % (45.0-75.0) H Lymphocytes (%) (Auto) 6.5 % (20.0-45.0) L Monocytes (%) (Auto) 9.9 % (1.0-10.0) Eosinophils (%) (Auto) 0.1 % (0.0-3.0) Basophils (%) (Auto) 1.4 % (0.0-2.0) Erythrocyte Sedimentation Rate 86 MM/HR (0-20) H Sodium Level 141 MMOL/L (136-145) Potassium Level 4.4 MMOL/L (3.5-5.1) Chloride Level 104 MMOL/L (98-107) Carbon Dioxide Level 32 MMOL/L (21-32) Anion Gap 5 mmol/L (5-15) Blood Urea Nitrogen 60 mg/dL (7-18) H Creatinine 1.5 MG/DL (0.55-1.30) H Estimat Glomerular Filtration Rate 44.2 mL/min (>60) Glucose Level 173 MG/DL (74-106) H Calcium Level 8.1 MG/DL (8.5-10.1) L Phosphorus Level 3.6 MG/DL (2.5-4.9) Magnesium Level 2.3 MG/DL (1.8-2.4) Total Bilirubin 0.3 MG/DL (0.2-1.0) Aspartate Amino Transf (AST/SGOT) 34 U/L (15-37) Alanine Aminotransferase (ALT/SGPT) 42 U/L (12-78) Alkaline Phosphatase 73 U/L (46-116) C-Reactive Protein, Quantitative 9.4 mg/dL (0.00-0.90) H Total Protein 5.8 G/DL (6.4-8.2) L Albumin 1.9 G/DL (3.4-5.0) L Globulin 3.9 g/dL Albumin/Globulin Ratio 0.5 (1.0-2.7) L Current Medications Medications (Trade) Dose Ordered Sig/James Route PRN Reason Start Time Stop Time Status Last Admin Dose Admin Acetaminophen (Tylenol) 650 mg Q4H PRN ORAL fever 12/03/19 18:48 01/02/20 18:47 Apixaban (Eliquis) 2.5 mg BID ORAL 12/05/19 09:00 03/04/20 08:59 12/10/19 09:30 Barium Sulfate (Varibar Honey) 250 ml NOW PRN MC RAD 12/08/19 14:00 12/11/19 13:57 Barium Sulfate (Varibar [place]) 240 ml NOW PRN MC RAD 12/08/19 14:00 12/11/19 13:57 Barium Sulfate (Varibar Pudding) 230 ml NOW PRN MC RAD 12/08/19 14:00 12/11/19 13:57 Barium Sulfate (Varibar Thin Liquid powder) 148 gm NOW PRN RAD 12/08/19 14:00 12/11/19 13:57 Clonidine HCl (Catapres Tab) 0.1 mg Q4H PRN ORAL For High Blood Pressure 12/03/19 19:15 03/01/20 19:14 Dextrose (Dextrose 50%) 25 ml Q30M PRN IV Hypoglycemia 12/03/19 18:45 03/01/20 19:14 Dextrose (Dextrose 50%) 50 ml Q30M PRN IV Hypoglycemia 12/03/19 18:45 03/01/20 19:14 Escitalopram Oxalate (Lexapro) 10 mg DAILY ORAL 12/04/19 09:00 01/02/20 08:59 12/10/19 09:30 Folic Acid (Folate) 2 mg DAILY NG 12/05/19 09:00 01/04/20 08:59 12/10/19 09:30 Insulin Aspart (NovoLOG) BEFORE MEALS AND HS SUBQ 12/03/19 21:00 03/01/20 20:59 12/10/19 11:30 Lansoprazole (Prevacid) 30 mg DAILY GT 12/10/19 09:00 01/09/20 08:59 12/10/19 09:30 Nitroglycerin (Ntg) 0.4 mg Q5M X 3 DOSES PRN SL Prn Chest Pain 12/03/19 18:45 01/01/20 19:14 Ondansetron HCl (Zofran) 4 mg Q6H PRN IVP Nausea & Vomiting 12/03/19 19:15 01/01/20 19:14 Polyethylene Glycol (Miralax) 17 gm BEDTIME ORAL 12/06/19 21:00 01/05/20 20:59 12/09/19 22:01 Promethazine HCl/ Codeine (Phenergan with Codeine) 5 ml Q4H PRN ORAL For Cough 12/03/19 19:15 01/01/20 19:14 Velma Lopez M.D. Dec 10, 2019 13:49
--- NOTE | 2019-12-10 14:37 | Nephrology Progress Note ---
Assessment/Plan Problem List: (1) FRANKY (acute kidney injury) (2) Anemia (3) Severe protein-calorie malnutrition (4) Alzheimer's dementia (5) UTI (urinary tract infection) (6) Acute dehydration Assessment Acute on chronic renal failure. Previous admission patient was discharged on serum creatinine of 1.6. Severe malnutrition. Encephalopathy toxic metabolic. Evidence of UTI. Multi-infarct brain disease. Diabetes mellitus Hypertension History of colon cancer [facility] resident Full code Plan December 09: Lab reviewed. Patient has PEG. Stable from renal standpoint of view. Serum creatinine 1.5 December 08: Labs are reviewed. Stable from renal standpoint. December 07: No chemistry panel done today. Will check labs tomorrow. Stable from renal standpoint of view December 06: Renal parameters stable. DC IV fluid. Continue per consultants. December 05: Renal parameters improving. Continue IV fluid. Continue to monitor renal parameters and electrolytes. Medication list reviewed. Abnormal electrolyte addressed. December 04: Serum creatinine improving. IV fluid changed to D5W 30 cc an hour. Feeding through NG tube is in process. Continue to monitor electrolytes and renal parameters. December 03: Late note entry due to system problem at the [facility] [place]. Serum creatinine improving. Folic acid supplement given. Continue to monitor renal parameters Slow hydrate Monitor renal parameters urine output Antibiotics Avoid nephrotoxic's Per consultants Improve nutritional status as possible Subjective ROS Limited/Unobtainable: No Constitutional: Reports: malaise Objective Objective Last 24 Hour Vital Signs Date Time Temp Pulse Resp B/P (MAP) Pulse Ox O2 Delivery O2 Flow Rate FiO2 12/10/19 12:43 88 18 96 Room Air 21 12/10/19 12:00 87 12/10/19 12:00 98.0 85 18 110/48 (68) 95 12/10/19 09:00 Room Air 12/10/19 08:00 98.8 79 18 99/46 (63) 94 12/10/19 08:00 79 12/10/19 04:00 88 12/10/19 04:00 98.8 85 18 99/51 (67) 96 12/10/19 00:00 88 12/10/19 00:00 98.5 77 16 127/51 (76) 96 12/09/19 21:00 Room Air 12/09/19 20:00 98.2 80 17 123/54 (77) 96 12/09/19 19:00 92 18 96 Room Air 21 12/09/19 16:00 92 12/09/19 16:00 96.6 92 18 106/56 (73) 96 12/09/19 15:30 86 18 112/61 95 12/09/19 15:00 89 18 106/56 94 Intake and Output 12/09/19 12/10/19 19:00 07:00 Intake Total 500 ml 40 ml Output Total 400 ml 300 ml Balance 100 ml -260 ml IV Total 500 ml Tube Feeding 40 ml Output Urine Total 400 ml 300 ml # Bowel Movements 1 1 Laboratory Tests 12/09/19 17:06: POC Whole Blood Glucose 134H 12/09/19 20:14: POC Whole Blood Glucose [Pending] 12/10/19 06:25: POC Whole Blood Glucose 168H 12/10/19 06:48: White Blood Count 10.5, Red Blood Count 3.39L, Hemoglobin 9.1L, Hematocrit 28.4L , Mean Corpuscular Volume 84, Mean Corpuscular Hemoglobin 26.9L, Mean Corpuscular Hemoglobin Concent 32.1, Red Cell Distribution Width 13.8, Platelet Count 336, Mean Platelet Volume 5.6L, Neutrophils (%) (Auto) 82.0H, Lymphocytes (%) (Auto) 6.5L, Monocytes (%) (Auto) 9.9, Eosinophils (%) (Auto) 0.1, Basophils (%) (Auto) 1.4, Erythrocyte Sedimentation Rate 86H, Sodium Level 141, Potassium Level 4.4, Chloride Level 104, Carbon Dioxide Level 32, Anion Gap 5, Blood Urea Nitrogen 60H, Creatinine 1.5H, Estimat Glomerular Filtration Rate 44.2, Glucose Level 173H, Calcium Level 8.1L, Phosphorus Level 3.6, Magnesium Level 2.3, Total Bilirubin 0.3, Aspartate Amino Transf (AST/SGOT) 34, Alanine Aminotransferase (ALT/SGPT) 42, Alkaline Phosphatase 73, C-Reactive Protein, Quantitative 9.4H, Total Protein 5.8L, Albumin 1.9L, Globulin 3.9, Albumin/ Globulin Ratio 0.5L Height (Feet): 5 Height (Inches): 6.00 Weight (Pounds): 115 General Appearance: no apparent distress Cardiovascular: normal rate Respiratory/Chest: decreased breath sounds Abdomen: soft, other - PEG Fouladian,Vin MD Dec 10, 2019 14:37
--- NOTE | 2019-12-10 14:49 | NUR ---
CASE MANAGEMENT:REVIEW SI;ESBL UTI. ACUTE ENCEPHALOPATHY. S/P PEG PLACEMENT 12/09/19 98.8 88 18 99/46 94% ON RA BUN 60 CR 1.5 BG 173 ALB 1.9 IS;PREVACID GT QD INSULIN NOVOLOG SUBQ QID ELIQUIS GT BID TUBE FEEDING @ 45 CC/HR W/GOAL OF 55 CC/HR TELE STATUS DCP;FROM [facility]
--- NOTE | 2019-12-10 14:57 | Surgery Progress Note ---
Surgery Progress Note Subjective Symptoms: improved, tolerating diet, passing flatus Additional Comments peg okay Objective Last 24 Hour Vital Signs Date Time Temp Pulse Resp B/P (MAP) Pulse Ox O2 Delivery O2 Flow Rate FiO2 12/10/19 12:43 88 18 96 Room Air 21 12/10/19 12:00 87 12/10/19 12:00 98.0 85 18 110/48 (68) 95 12/10/19 09:00 Room Air 12/10/19 08:00 98.8 79 18 99/46 (63) 94 12/10/19 08:00 79 12/10/19 04:00 88 12/10/19 04:00 98.8 85 18 99/51 (67) 96 12/10/19 00:00 88 12/10/19 00:00 98.5 77 16 127/51 (76) 96 12/09/19 21:00 Room Air 12/09/19 20:00 98.2 80 17 123/54 (77) 96 12/09/19 19:00 92 18 96 Room Air 21 12/09/19 16:00 92 12/09/19 16:00 96.6 92 18 106/56 (73) 96 12/09/19 15:30 86 18 112/61 95 12/09/19 15:00 89 18 106/56 94 I&O Intake and Output 12/09/19 12/10/19 19:00 07:00 Intake Total 500 ml 40 ml Output Total 400 ml 300 ml Balance 100 ml -260 ml IV Total 500 ml Tube Feeding 40 ml Output Urine Total 400 ml 300 ml # Bowel Movements 1 1 Dressing: dry Wound: clean Cardiovascular: RSR Respiratory: clear Abdomen: soft, non-tender, present bowel sounds, other Extremities: no edema, no tenderness, no cyanosis Laboratory Tests Test 12/09/19 17:06 12/09/19 20:14 12/10/19 06:25 12/10/19 06:48 POC Whole Blood Glucose 134 MG/DL (74-106) H Pending 168 MG/DL (74-106) H White Blood Count 10.5 K/UL (4.8-10.8) Red Blood Count 3.39 M/UL (4.70-6.10) L Hemoglobin 9.1 G/DL (14.2-18.0) L Hematocrit 28.4 % (42.0-52.0) L Mean Corpuscular Volume 84 FL (80-99) Mean Corpuscular Hemoglobin 26.9 PG (27.0-31.0) L Mean Corpuscular Hemoglobin Concent 32.1 G/DL (32.0-36.0) Red Cell Distribution Width 13.8 % (11.6-14.8) Platelet Count 336 K/UL (150-450) Mean Platelet Volume 5.6 FL (6.5-10.1) L Neutrophils (%) (Auto) 82.0 % (45.0-75.0) H Lymphocytes (%) (Auto) 6.5 % (20.0-45.0) L Monocytes (%) (Auto) 9.9 % (1.0-10.0) Eosinophils (%) (Auto) 0.1 % (0.0-3.0) Basophils (%) (Auto) 1.4 % (0.0-2.0) Erythrocyte Sedimentation Rate 86 MM/HR (0-20) H Sodium Level 141 MMOL/L (136-145) Potassium Level 4.4 MMOL/L (3.5-5.1) Chloride Level 104 MMOL/L (98-107) Carbon Dioxide Level 32 MMOL/L (21-32) Anion Gap 5 mmol/L (5-15) Blood Urea Nitrogen 60 mg/dL (7-18) H Creatinine 1.5 MG/DL (0.55-1.30) H Estimat Glomerular Filtration Rate 44.2 mL/min (>60) Glucose Level 173 MG/DL (74-106) H Calcium Level 8.1 MG/DL (8.5-10.1) L Phosphorus Level 3.6 MG/DL (2.5-4.9) Magnesium Level 2.3 MG/DL (1.8-2.4) Total Bilirubin 0.3 MG/DL (0.2-1.0) Aspartate Amino Transf (AST/SGOT) 34 U/L (15-37) Alanine Aminotransferase (ALT/SGPT) 42 U/L (12-78) Alkaline Phosphatase 73 U/L (46-116) C-Reactive Protein, Quantitative 9.4 mg/dL (0.00-0.90) H Total Protein 5.8 G/DL (6.4-8.2) L Albumin 1.9 G/DL (3.4-5.0) L Globulin 3.9 g/dL Albumin/Globulin Ratio 0.5 (1.0-2.7) L Plan Problems: (1) History of diabetes mellitus (2) History of hypertension (3) Alzheimer's dementia (4) UTI (urinary tract infection) (5) Unilateral weakness (6) Acute dehydration (7) Altered level of consciousness (8) Subdural hematoma (9) Colon cancer (10) Severe protein-calorie malnutrition Assessment & Plan: planned PEG s/p peg tf as tolerated DAILY ESTIMATED NEEDS: Needs based on Underweight, wasting, wound 40kg 30-35 kcals/kg 9456-0631 total kcals 1.25-2 g protein/kg 50-80 g total protein 25-30ml/kcal mL/kg 2116-2141 total fluid mLs NUTRITION DIAGNOSIS: Increased kcal and pro needs r/t underweight status as evidenced by low BMI, moderate to severe generalized wasting, w/ multiple areas of skin compromise, DTI x4. 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 H/O: subdural hematoma, colon cancer status post treatment, HTN, Syncope and collapse, anemia, DM2, Alzheimer Dementia, CKD, severe protein-calorie malnutrition, hyperlipidemia, vitamin B12 deficiency, muscle wasting, lack of coordination. POLST: Not in chart. RELEVANT MEDS: Albuterol (SOB); Zofran (Nausea); Restoril (insomnia). VITALS ON 2L NASAL CANNULA: HR: 67; RR: 19; SP02 100% PLOF: Pt consumed mechanical soft with thin liquids [facility] at [facility]. Pt seen at bedside appears frail and weak. Pt able to open eye to verbal communication. Pt noted with copious, thick phlegm and debris in BOT and throughout oral cavity. Pt provided oral moisturizer and thorough oral care with Yankauer suction, removing thick phlegm, mildly improved verbal communication s/p oral care. Pt able to nod head yes when asked if Pt gets thickened liquids. 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 Pt given PO trial of nectar thick liquid teaspoons. Oral phase characterized by functional labial seal, poor bolus control resulting in suspected premature posterior spillage and subsequent suspected silent aspiration given laryngeal elevation was not well appreciated upon palpation despite verbal and tactile cues to Pt's larynx to initiate swallow; no swallow initiated. Pt did not cough or attempt to clear trial. Pt was able to eventually initiate a swallow with a 20 second delay, laryngeal elevation incomplete in feel upon palpation. Pt is a high risk for silent aspiration, would benefit from MBSS in future ( will monitor Pt's candidacy, not appropriate to participate in MBSS at this time ). RECOMMENDATIONS: 1. NPO with nutrition, hydration, and meds via NGT (12 [place]). 2. Please provide oral care BID 3. Dysphagia therapy 3-5x per week x1 week. 4. Will monitor Pts appropriateness to participate in MBSS. 5. Pt would benefit from Speech, Language, and Cognitive communication evaluation given s/p lacunar infarcts. (11) Decubitus skin ulcer Assessment & Plan: Pt presented on admission with multiple Pressure injuries. Reabsorbing DTPI L Elbow. Base of Pressure Injury is dry and black centrally with maroon borders(L)2cm x (W)1.5cm. DTPI Sacrum (L)9.5cm x (W)11.5cm. Base of Pressure Injury is indurated purpuric with surrounding maroon borders. Pt verbalized tenderness when affected site minimally palpated. DTPI R Ischium(L)8cm x (W)9.5cm. Base of pressure injury is purpuric with maroon borders. Tender when minimally palpated. DTPI L trochanter(L)4cm x (W)3.2cm. Base of injury is purpuric with surrounding Maroon borders. Tender when minimally palpated. DTPI L Ischium (L)7cm x (W)5.4cm.Base of Injury is black with marginal erythema . Tender when minimally palpated. R Heel is boggy with non-blanchable erythema (L)3cm x (W)3.5cm. L Heel is boggy with non-Blanchable erythema(L)5cm x (W)3.5cm. L 1st metatarsal erythematous,tip is fluctuant. Pt complained tender when minimally palpated. No elevation in skin temp noted. Dry scab noted to dorsal L 2nd metatarsal. Tx.Plan: Apply Moisture Barrier Paste to Sacrum and bilat ischial tuberosities. Cover each site with Optifoam drsgs. Change every 3 days and prn. Apply Cavilon Skin Barrier to R and L trochanter. Cover each site with Optifoam drsgs. Change every 7 days and prn Apply Cavilon Skin Barrier to L and R elbows. Cover each site with Optifoam drsgs. Change every 7 days and prn. Apply Cavilon Skin Barrier to both heels and Malleoli. Cover each site with Optifoam drsgs. Change every 7 days and prn. Apply Cavilon Skin Barrier to bony prominences and cover with Optifoam drsgs as needed. Reposition at least every 2hours or as tolerated. Off-load heels with pillow. APM/KARTHIK Mattress overlay. (12) Anemia (13) FRANKY (acute kidney injury) (14) Stroke Patel Merrill Dec 10, 2019 14:57
[2019-12-10 16:00] VITALS: BP 118/53
--- NOTE | 2019-12-10 17:23 | Pulmonology Progress Note ---
Subjective ROS Limited/Unobtainable: No Constitutional: Reports: no symptoms HEENT: Repors: no symptoms Allergies: Coded Allergies: ATENOLOL (Verified Allergy, Unknown, 05/23/16) LOSARTAN (Verified Allergy, Unknown, 05/23/16) SIMVASTATIN (Verified Allergy, Unknown, 05/23/16) Uncoded Allergies: AMLIODIPINE (Allergy, Unknown, 05/23/16) PENICILLIN (Allergy, Unknown, 12/03/19) Tolerated Ceftriaxone on 12/02/19 Objective Last 24 Hour Vital Signs Date Time Temp Pulse Resp B/P (MAP) Pulse Ox O2 Delivery O2 Flow Rate FiO2 12/10/19 12:43 88 18 96 Room Air 21 12/10/19 12:00 87 12/10/19 12:00 98.0 85 18 110/48 (68) 95 12/10/19 09:00 Room Air 12/10/19 08:00 98.8 79 18 99/46 (63) 94 12/10/19 08:00 79 12/10/19 04:00 88 12/10/19 04:00 98.8 85 18 99/51 (67) 96 12/10/19 00:00 88 12/10/19 00:00 98.5 77 16 127/51 (76) 96 12/09/19 21:00 Room Air 12/09/19 20:00 98.2 80 17 123/54 (77) 96 12/09/19 19:00 92 18 96 Room Air 21 Intake and Output 12/09/19 12/10/19 19:00 07:00 Intake Total 500 ml 40 ml Output Total 400 ml 300 ml Balance 100 ml -260 ml IV Total 500 ml Tube Feeding 40 ml Output Urine Total 400 ml 300 ml # Bowel Movements 1 1 General Appearance: cachetic HEENT: normocephalic, atraumatic Respiratory: chest wall non-tender, lungs clear Cardiovascular: normal peripheral pulses Abdomen: normal bowel sounds, soft, non tender Extremities: no cyanosis Skin: no ulcers Neurologic: no motor/sensory deficits Laboratory Tests 12/09/19 20:14: POC Whole Blood Glucose [Pending] 12/10/19 06:25: POC Whole Blood Glucose 168H 12/10/19 06:48: White Blood Count 10.5, Red Blood Count 3.39L, Hemoglobin 9.1L, Hematocrit 28.4L , Mean Corpuscular Volume 84, Mean Corpuscular Hemoglobin 26.9L, Mean Corpuscular Hemoglobin Concent 32.1, Red Cell Distribution Width 13.8, Platelet Count 336, Mean Platelet Volume 5.6L, Neutrophils (%) (Auto) 82.0H, Lymphocytes (%) (Auto) 6.5L, Monocytes (%) (Auto) 9.9, Eosinophils (%) (Auto) 0.1, Basophils (%) (Auto) 1.4, Erythrocyte Sedimentation Rate 86H, Sodium Level 141, Potassium Level 4.4, Chloride Level 104, Carbon Dioxide Level 32, Anion Gap 5, Blood Urea Nitrogen 60H, Creatinine 1.5H, Estimat Glomerular Filtration Rate 44.2, Glucose Level 173H, Calcium Level 8.1L, Phosphorus Level 3.6, Magnesium Level 2.3, Total Bilirubin 0.3, Aspartate Amino Transf (AST/SGOT) 34, Alanine Aminotransferase (ALT/SGPT) 42, Alkaline Phosphatase 73, C-Reactive Protein, Quantitative 9.4H, Total Protein 5.8L, Albumin 1.9L, Globulin 3.9, Albumin/ Globulin Ratio 0.5L Current Medications Medications (Trade) Dose Ordered Sig/James Route PRN Reason Start Time Stop Time Status Last Admin Dose Admin Acetaminophen (Tylenol) 650 mg Q4H PRN ORAL fever 12/03/19 18:48 01/02/20 18:47 Apixaban (Eliquis) 2.5 mg BID ORAL 12/05/19 09:00 03/04/20 08:59 12/10/19 09:30 Barium Sulfate (Varibar Honey) 250 ml NOW PRN RAD 12/08/19 14:00 12/11/19 13:57 Barium Sulfate (Varibar [place]) 240 ml NOW PRN MC RAD 12/08/19 14:00 12/11/19 13:57 Barium Sulfate (Varibar Pudding) 230 ml NOW PRN RAD 12/08/19 14:00 12/11/19 13:57 Barium Sulfate (Varibar Thin Liquid powder) 148 gm NOW PRN RAD 12/08/19 14:00 12/11/19 13:57 Clonidine HCl (Catapres Tab) 0.1 mg Q4H PRN ORAL For High Blood Pressure 12/03/19 19:15 03/01/20 19:14 Dextrose (Dextrose 50%) 25 ml Q30M PRN IV Hypoglycemia 12/03/19 18:45 03/01/20 19:14 Dextrose (Dextrose 50%) 50 ml Q30M PRN IV Hypoglycemia 12/03/19 18:45 03/01/20 19:14 Escitalopram Oxalate (Lexapro) 10 mg DAILY ORAL 12/04/19 09:00 01/02/20 08:59 12/10/19 09:30 Folic Acid (Folate) 2 mg DAILY NG 12/05/19 09:00 01/04/20 08:59 12/10/19 09:30 Insulin Aspart (NovoLOG) BEFORE MEALS AND HS SUBQ 12/03/19 21:00 03/01/20 20:59 12/10/19 16:42 Lansoprazole (Prevacid) 30 mg DAILY GT 12/10/19 09:00 01/09/20 08:59 12/10/19 09:30 Nitroglycerin (Ntg) 0.4 mg Q5M X 3 DOSES PRN SL Prn Chest Pain 12/03/19 18:45 01/01/20 19:14 Ondansetron HCl (Zofran) 4 mg Q6H PRN IVP Nausea & Vomiting 12/03/19 19:15 01/01/20 19:14 Polyethylene Glycol (Miralax) 17 gm BEDTIME ORAL 12/06/19 21:00 01/05/20 20:59 12/09/19 22:01 Promethazine HCl/ Codeine (Phenergan with Codeine) 5 ml Q4H PRN ORAL For Cough 12/03/19 19:15 01/01/20 19:14 Assessment/Plan Problems: (1) Altered level of consciousness (2) UTI (urinary tract infection) (3) Severe protein-calorie malnutrition (4) History of diabetes mellitus (5) History of hypertension (6) Alzheimer's dementia (7) Unilateral weakness (8) Subdural hematoma (9) Colon cancer Assessment/Plan WBC is normal , afebrile Urine has GNB, MDR Klebsiella Abx as per ID Meropenem and Vancomycin f/u electrolytes swallow study reviewed. swallow evaluation pending Neurology note appreciated Cherelle Vera MD Dec 10, 2019 17:23
--- NOTE | 2019-12-10 19:10 | NUR ---
NURSE HAND-OFF REPORT: Important Events on Shift:N Patient Status: Diet: Pending Orders: Pending Results/Labs: Pending MD notification: Latest Vital Signs: Temperature 98.1 , Pulse 96 , B/P 118 /53 , Respiratory Rate 18 , O2 SAT 97 , Room Air, O2 Flow Rate 3 . Vital Sign Comment: EKG Rhythm: Sinus Rhythm Rhythm change?: N MD Notified?: N MD Response: Latest Zhang Fall Score: 50 Fall Risk: High Risk Safety Measures: Call light Within Reach, Bed Alarm Zone 2, Side Rails Side Rails x3, Bed position Low and Locked. Fall Precautions: Yellow Socks Yellow Gown Report given to .
--- NOTE | 2019-12-10 19:20 | NUR ---
NURSE NOTES: Pt received from ELLI So. Pt is in bed resting comfortably. Pt is AxO x1 and responds with nodding to questions. Pt is on cardiac monitoring SR and asymptomatic. Pt has Lhand 22G SL patent dry and intact. Pt is breathing unlabored on RA. Pt receives Gtube feeding Glucerna 1.2 50 ml/hr with the goal of 55 ml/hr. Pt has hamlin catheter 16 fr patent and draining well to gravity. Bed is locked in lowest position with bed alarm on and call light within reach. Will continue to monitor.
[2019-12-10 20:00] VITALS: BP 105/52
[2019-12-10] MEDS: Miralax 17gm pkt ORAL SCH (21:34)
[2019-12-11] VITALS: BP 91/61
[2019-12-11 04:00] VITALS: BP 131/60
--- NOTE | 2019-12-11 04:20 | NUR ---
NURSE NOTES: Pt had 2 loose stools. Latest stool has trace amounts of blood. Patient cleaned and linens changed. Will continue to monitor.
[2019-12-11] MEDS: NovoLOG Insulin Flexpen SUBQ SCH ×4 (06:10→21:00)
[2019-12-11 06:53] LABS: BASOPHILS % (AUTO) 0.7 % (0.0-2.0); EOSINOPHILS % (AUTO) 0.3 % (0.0-3.0); HEMATOCRIT 30.8 % (42.0-52.0); HEMOGLOBIN 9.7 G/DL (14.2-18.0); LYMPHOCYTES % (AUTO) 6.3 % (20.0-45.0); MEAN CORPUSCULAR VOLUME 87 FL (80-99); MONOCYTES % (AUTO) 9.7 % (1.0-10.0); PLATELET COUNT 379 K/UL (150-450); RED BLOOD COUNT 3.56 M/UL (4.70-6.10); RED CELL DISTRIBUTION WIDTH 13.6 % (11.6-14.8); WHITE BLOOD COUNT 13.5 K/UL (4.8-10.8)
[2019-12-11 07:06] LABS: ANION GAP 6 mmol/L (5-15); BLOOD UREA NITROGEN 73 mg/dL (7-18); CALCIUM 8.9 MG/DL (8.5-10.1); CARBON DIOXIDE 32 MMOL/L (21-32); CHLORIDE 104 MMOL/L (98-107); CREATININE 1.8 MG/DL (0.55-1.30); POTASSIUM 4.6 MMOL/L (3.5-5.1); SODIUM 142 MMOL/L (136-145)
--- NOTE | 2019-12-11 07:38 | NUR ---
NURSE HAND-OFF REPORT: Important Events on Shift: Pt tube feeding increased to goal 55 ml/hr Patient Status: Stable Diet: Glucerna 1.2 55 ml/hr Pending Results/Labs:Morning Labs Latest Vital Signs: Temperature 98.2 , Pulse 63 , B/P 131 /60 , Respiratory Rate 18 , O2 SAT 96 , Room Air, O2 Flow Rate 3 . Vital Sign Comment: VSS EKG Rhythm: Sinus Rhythm Rhythm change?: N Notified?: N -Dr Delfino RUFFIN Response: Latest Zhang Fall Score: 50 Fall Risk: High Risk Safety Measures: Call light Within Reach, Bed Alarm Zone 2, Side Rails Side Rails x3, Bed position Low and Locked. Fall Precautions: Yellow Socks Yellow Gown Report given to ELLI Baxter.
[2019-12-11 08:00] VITALS: BP 128/55
--- NOTE | 2019-12-11 08:13 | NUR ---
NURSE NOTES: received report from ELLI Deras. Pt is AOx1, stable, and on RA. pt has no s/s or complaints of distress at this time. Pt IV on L Hand 22g SL, asymptomatic and intact. Pt bed low and locked, call light in reach and bed alarm on. Sacral discoloration, Bilateral trochanter redness, and bilaterall heels boggy. Upper Gtube site new, dry and intact. Will continue to monitor.
[2019-12-11] MEDS: Eliquis 2.5mg tablet ORAL SCH ×2 (08:44→17:22)
--- NOTE | 2019-12-11 09:22 | General Progress Note ---
Assessment/Plan Assessment/Plan: anemia AMS dysphagia DM h/o colon ca RI s/p PEG GTF anemia work up fu labs Subjective ROS Limited/Unobtainable: No Allergies: Coded Allergies: ATENOLOL (Verified Allergy, Unknown, 05/23/16) LOSARTAN (Verified Allergy, Unknown, 05/23/16) SIMVASTATIN (Verified Allergy, Unknown, 05/23/16) Uncoded Allergies: AMLIODIPINE (Allergy, Unknown, 05/23/16) PENICILLIN (Allergy, Unknown, 12/03/19) Tolerated Ceftriaxone on 12/02/19 Objective Last 24 Hour Vital Signs Date Time Temp Pulse Resp B/P (MAP) Pulse Ox O2 Delivery O2 Flow Rate FiO2 12/11/19 08:00 96.6 72 19 128/55 (79) 96 12/11/19 04:00 98.2 63 18 131/60 (83) 96 12/11/19 04:00 73 12/11/19 00:00 87 12/11/19 00:00 99.0 84 18 91/61 (71) 82 12/10/19 20:00 84 12/10/19 20:00 99.2 91 18 105/52 (69) 90 12/10/19 19:00 84 18 96 Room Air 21 12/10/19 16:00 98.1 96 18 118/53 (74) 97 12/10/19 16:00 96 12/10/19 12:43 88 18 96 Room Air 21 12/10/19 12:00 87 12/10/19 12:00 98.0 85 18 110/48 (68) 95 Intake and Output 12/10/19 12/11/19 19:00 07:00 Intake Total 345 ml Output Total 350 ml 500 ml Balance -350 ml -155 ml Intake Free Water 50 ml Tube Feeding 55 ml Other 240 ml Output Urine Total 350 ml 500 ml # Bowel Movements 1 3 Laboratory Tests 12/11/19 06:15: White Blood Count 13.5H, Red Blood Count 3.56L, Hemoglobin 9.7L, Hematocrit 30.8L, Mean Corpuscular Volume 87, Mean Corpuscular Hemoglobin 27.2, Mean Corpuscular Hemoglobin Concent 31.4L, Red Cell Distribution Width 13.6, Platelet Count 379, Mean Platelet Volume 5.5L, Neutrophils (%) (Auto) 83.0H, Lymphocytes (%) (Auto) 6.3L, Monocytes (%) (Auto) 9.7, Eosinophils (%) (Auto) 0.3, Basophils (%) (Auto) 0.7, Sodium Level 142, Potassium Level 4.6, Chloride Level 104, Carbon Dioxide Level 32, Anion Gap 6, Blood Urea Nitrogen 73H, Creatinine 1.8H, Estimat Glomerular Filtration Rate 35.8, Glucose Level 215H, Calcium Level 8.9 Height (Feet): 5 Height (Inches): 6.00 Weight (Pounds): 115 General Appearance: no apparent distress EENT: normal ENT inspection Neck: supple Cardiovascular: normal rate Respiratory/Chest: decreased breath sounds Abdomen: normal bowel sounds, non tender, soft Extremities: non-tender Mamadou Johnson MD Dec 11, 2019 09:22
--- NOTE | 2019-12-11 10:21 | Surgery Progress Note ---
Surgery Progress Note Subjective Additional Comments s/p peg tolerating tf CT noted and reviewed comfortable Objective Last 24 Hour Vital Signs Date Time Temp Pulse Resp B/P (MAP) Pulse Ox O2 Delivery O2 Flow Rate FiO2 12/11/19 08:00 96.6 72 19 128/55 (79) 96 12/11/19 07:00 72 18 96 Room Air 21 12/11/19 04:00 98.2 63 18 131/60 (83) 96 12/11/19 04:00 73 12/11/19 00:00 87 12/11/19 00:00 99.0 84 18 91/61 (71) 82 12/10/19 20:00 84 12/10/19 20:00 99.2 91 18 105/52 (69) 90 12/10/19 19:00 84 18 96 Room Air 21 12/10/19 16:00 98.1 96 18 118/53 (74) 97 12/10/19 16:00 96 12/10/19 12:43 88 18 96 Room Air 21 12/10/19 12:00 87 12/10/19 12:00 98.0 85 18 110/48 (68) 95 I&O Intake and Output 12/10/19 12/11/19 19:00 07:00 Intake Total 345 ml Output Total 350 ml 500 ml Balance -350 ml -155 ml Intake Free Water 50 ml Tube Feeding 55 ml Other 240 ml Output Urine Total 350 ml 500 ml # Bowel Movements 1 3 Dressing: other Cardiovascular: RSR Respiratory: decreased breath sounds Abdomen: soft, non-tender, present bowel sounds Extremities: no tenderness, no cyanosis Laboratory Tests Test 12/11/19 06:15 White Blood Count 13.5 K/UL (4.8-10.8) H Red Blood Count 3.56 M/UL (4.70-6.10) L Hemoglobin 9.7 G/DL (14.2-18.0) L Hematocrit 30.8 % (42.0-52.0) L Mean Corpuscular Volume 87 FL (80-99) Mean Corpuscular Hemoglobin 27.2 PG (27.0-31.0) Mean Corpuscular Hemoglobin Concent 31.4 G/DL (32.0-36.0) L Red Cell Distribution Width 13.6 % (11.6-14.8) Platelet Count 379 K/UL (150-450) Mean Platelet Volume 5.5 FL (6.5-10.1) L Neutrophils (%) (Auto) 83.0 % (45.0-75.0) H Lymphocytes (%) (Auto) 6.3 % (20.0-45.0) L Monocytes (%) (Auto) 9.7 % (1.0-10.0) Eosinophils (%) (Auto) 0.3 % (0.0-3.0) Basophils (%) (Auto) 0.7 % (0.0-2.0) Sodium Level 142 MMOL/L (136-145) Potassium Level 4.6 MMOL/L (3.5-5.1) Chloride Level 104 MMOL/L (98-107) Carbon Dioxide Level 32 MMOL/L (21-32) Anion Gap 6 mmol/L (5-15) Blood Urea Nitrogen 73 mg/dL (7-18) H Creatinine 1.8 MG/DL (0.55-1.30) H Estimat Glomerular Filtration Rate 35.8 mL/min (>60) Glucose Level 215 MG/DL (74-106) H Calcium Level 8.9 MG/DL (8.5-10.1) Plan Problems: (1) History of diabetes mellitus (2) History of hypertension (3) Alzheimer's dementia (4) UTI (urinary tract infection) (5) Unilateral weakness (6) Acute dehydration (7) Altered level of consciousness (8) Subdural hematoma (9) Colon cancer Assessment & Plan: Exam is limited due to patient being contracted. No evidence of acute fracture. No dislocation. The joint spaces are preserved. There is some edema of the right buttock region subcutaneous fat, but no evidence of soft tissue contusion demonstrated. No evidence of pelvic fracture. The rectum is distended by dense stool. There is a Vela catheter within the bladder. A small amount of urine within the bladder despite Vela catheter. There are colonic diverticula. Impression: No evidence of acute bony trauma or significant soft tissue trauma Rectal fecal impaction Colonic diverticulosis (10) Severe protein-calorie malnutrition Assessment & Plan: planned PEG s/p peg tf as tolerated DAILY ESTIMATED NEEDS: Needs based on Underweight, wasting, wound 40kg 30-35 kcals/kg 1068-8626 total kcals 1.25-2 g protein/kg 50-80 g total protein 25-30ml/kcal mL/kg 6702-0975 total fluid mLs NUTRITION DIAGNOSIS: Increased kcal and pro needs r/t underweight status as evidenced by low BMI, moderate to severe generalized wasting, w/ multiple areas of skin compromise, DTI x4. CURRENT DIET: NPO ENTERAL NUTRITION RECOMMENDATIONS: Glucerna 1.2 goal of 45ml/hr x24 hrs to provide 1080ml, 1296 kcal, 65g pro, 869ml free h2O - Obtain GI access, initiate Glucerna 1.2 @25ml/hr for 6 hrs - Advance as tolerated 10ml/hr q4-6 hrs to goal - Flush per MD/ HOB over 30 degrees ------ ADDITIONAL RECOMMENDATIONS: 1) W/ poor po intake, add Ensure TID -> not appropriate for oral po W/ elevated BG rec Glucerna TID-> not appropriate for oral po 2) Add FRANCISCA BID -> f/up w WC eval 3) [employer] eval for texture, need for non oral feeds-> S/p [employer] eval, not appropriate for oral diet, TF recs as above 4) Calibrated bed scale wts daily 5) Monitor lytes w/ TF, replete as needed ACUTE: ALOC x2 days with right side paralysis, CVA, intracranial bleed, seizure , postictal state, major electrolyte abnormality, severe sepsis, Acute dehydration. H/O: subdural hematoma, colon cancer status post treatment, HTN, Syncope and collapse, anemia, DM2, Alzheimer Dementia, CKD, severe protein-calorie malnutrition, hyperlipidemia, vitamin B12 deficiency, muscle wasting, lack of coordination. POLST: Not in chart. RELEVANT MEDS: Albuterol (SOB); Zofran (Nausea); Restoril (insomnia). VITALS ON 2L NASAL CANNULA: HR: 67; RR: 19; SP02 100% PLOF: Pt consumed mechanical soft with thin liquids [facility]. Pt seen at bedside appears frail and weak. Pt able to open eye to verbal communication. Pt noted with copious, thick phlegm and debris in BOT and throughout oral cavity. Pt provided oral moisturizer and thorough oral care with Yankauer suction, removing thick phlegm, mildly improved verbal communication s/p oral care. Pt able to nod head yes when asked if Pt gets thickened liquids. 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 Pt given PO trial of nectar thick liquid teaspoons. Oral phase characterized by functional labial seal, poor bolus control resulting in suspected premature posterior spillage and subsequent suspected silent aspiration given laryngeal elevation was not well appreciated upon palpation despite verbal and tactile cues to Pt's larynx to initiate swallow; no swallow initiated. Pt did not cough or attempt to clear trial. Pt was able to eventually initiate a swallow with a 20 second delay, laryngeal elevation incomplete in feel upon palpation. Pt is a high risk for silent aspiration, would benefit from MBSS in future ( will monitor Pt's candidacy, not appropriate to participate in MBSS at this time ). RECOMMENDATIONS: 1. NPO with nutrition, hydration, and meds via NGT (12 Bengali). 2. Please provide oral care BID 3. Dysphagia therapy 3-5x per week x1 week. 4. Will monitor Pts appropriateness to participate in MBSS. 5. Pt would benefit from Speech, Language, and Cognitive communication evaluation given s/p lacunar infarcts. (11) Decubitus skin ulcer Assessment & Plan: Pt presented on admission with multiple Pressure injuries. Reabsorbing DTPI L Elbow. Base of Pressure Injury is dry and black centrally with maroon borders(L)2cm x (W)1.5cm. DTPI Sacrum (L)9.5cm x (W)11.5cm. Base of Pressure Injury is indurated purpuric with surrounding maroon borders. Pt verbalized tenderness when affected site minimally palpated. DTPI R Ischium(L)8cm x (W)9.5cm. Base of pressure injury is purpuric with maroon borders. Tender when minimally palpated. DTPI L trochanter(L)4cm x (W)3.2cm. Base of injury is purpuric with surrounding Maroon borders. Tender when minimally palpated. DTPI L Ischium (L)7cm x (W)5.4cm.Base of Injury is black with marginal erythema . Tender when minimally palpated. R Heel is boggy with non-blanchable erythema (L)3cm x (W)3.5cm. L Heel is boggy with non-Blanchable erythema(L)5cm x (W)3.5cm. L 1st metatarsal erythematous,tip is fluctuant. Pt complained tender when minimally palpated. No elevation in skin temp noted. Dry scab noted to dorsal L 2nd metatarsal. Tx.Plan: Apply Moisture Barrier Paste to Sacrum and bilat ischial tuberosities. Cover each site with Optifoam drsgs. Change every 3 days and prn. Apply Cavilon Skin Barrier to R and L trochanter. Cover each site with Optifoam drsgs. Change every 7 days and prn Apply Cavilon Skin Barrier to L and R elbows. Cover each site with Optifoam drsgs. Change every 7 days and prn. Apply Cavilon Skin Barrier to both heels and Malleoli. Cover each site with Optifoam drsgs. Change every 7 days and prn. Apply Cavilon Skin Barrier to bony prominences and cover with Optifoam drsgs as needed. Reposition at least every 2hours or as tolerated. Off-load heels with pillow. APM/KARTHIK Mattress overlay. (12) Anemia (13) FRANKY (acute kidney injury) (14) Stroke Patel Merrill Dec 11, 2019 10:21
--- NOTE | 2019-12-11 10:58 | Nephrology Progress Note ---
Assessment/Plan Problem List: (1) FRANKY (acute kidney injury) (2) Anemia (3) Severe protein-calorie malnutrition (4) Alzheimer's dementia (5) UTI (urinary tract infection) (6) Acute dehydration Assessment Acute on chronic renal failure. Previous admission patient was discharged on serum creatinine of 1.6. Severe malnutrition. Encephalopathy toxic metabolic. Evidence of UTI. Multi-infarct brain disease. Diabetes mellitus Hypertension History of colon cancer Alzheimer's long-term resident Full code Plan December 10: Labs reviewed. Creatinine higher. Albumin 5% bolus of 500 cc ordered. Urine studies ordered. Continue to monitor renal parameters. Per orders. December 09: Lab reviewed. Patient has PEG. Stable from renal standpoint of view. Serum creatinine 1.5 December 08: Labs are reviewed. Stable from renal standpoint. December 07: No chemistry panel done today. Will check labs tomorrow. Stable from renal standpoint of view December 06: Renal parameters stable. DC IV fluid. Continue per consultants. December 05: Renal parameters improving. Continue IV fluid. Continue to monitor renal parameters and electrolytes. Medication list reviewed. Abnormal electrolyte addressed. December 04: Serum creatinine improving. IV fluid changed to D5W 30 cc an hour. Feeding through NG tube is in process. Continue to monitor electrolytes and renal parameters. December 03: Late note entry due to system problem at the [facility] today. Serum creatinine improving. Folic acid supplement given. Continue to monitor renal parameters Slow hydrate Monitor renal parameters urine output Antibiotics Avoid nephrotoxic's Per consultants Improve nutritional status as possible Subjective ROS Limited/Unobtainable: Yes Objective Objective Last 24 Hour Vital Signs Date Time Temp Pulse Resp B/P (MAP) Pulse Ox O2 Delivery O2 Flow Rate FiO2 12/11/19 08:00 96.6 72 19 128/55 (79) 96 12/11/19 07:00 72 18 96 Room Air 21 12/11/19 04:00 98.2 63 18 131/60 (83) 96 12/11/19 04:00 73 12/11/19 00:00 87 12/11/19 00:00 99.0 84 18 91/61 (71) 82 12/10/19 20:00 84 12/10/19 20:00 99.2 91 18 105/52 (69) 90 12/10/19 19:00 84 18 96 Room Air 21 12/10/19 16:00 98.1 96 18 118/53 (74) 97 12/10/19 16:00 96 12/10/19 12:43 88 18 96 Room Air 21 12/10/19 12:00 87 12/10/19 12:00 98.0 85 18 110/48 (68) 95 Intake and Output 12/10/19 12/11/19 19:00 07:00 Intake Total 345 ml Output Total 350 ml 500 ml Balance -350 ml -155 ml Intake Free Water 50 ml Tube Feeding 55 ml Other 240 ml Output Urine Total 350 ml 500 ml # Bowel Movements 1 3 Laboratory Tests 12/11/19 06:15: White Blood Count 13.5H, Red Blood Count 3.56L, Hemoglobin 9.7L, Hematocrit 30.8L, Mean Corpuscular Volume 87, Mean Corpuscular Hemoglobin 27.2, Mean Corpuscular Hemoglobin Concent 31.4L, Red Cell Distribution Width 13.6, Platelet Count 379, Mean Platelet Volume 5.5L, Neutrophils (%) (Auto) 83.0H, Lymphocytes (%) (Auto) 6.3L, Monocytes (%) (Auto) 9.7, Eosinophils (%) (Auto) 0.3, Basophils (%) (Auto) 0.7, Sodium Level 142, Potassium Level 4.6, Chloride Level 104, Carbon Dioxide Level 32, Anion Gap 6, Blood Urea Nitrogen 73H, Creatinine 1.8H, Estimat Glomerular Filtration Rate 35.8, Glucose Level 215H, Calcium Level 8.9 Height (Feet): 5 Height (Inches): 6.00 Weight (Pounds): 115 General Appearance: no apparent distress, lethargic Cardiovascular: normal rate Respiratory/Chest: decreased breath sounds Abdomen: soft Vin Otero MD Dec 11, 2019 10:58
[2019-12-11 12:00] VITALS: BP 133/61
--- NOTE | 2019-12-11 13:25 | Pulmonology Progress Note ---
Subjective ROS Limited/Unobtainable: Yes Constitutional: Reports: no symptoms HEENT: Repors: no symptoms Allergies: Coded Allergies: ATENOLOL (Verified Allergy, Unknown, 05/23/16) LOSARTAN (Verified Allergy, Unknown, 05/23/16) SIMVASTATIN (Verified Allergy, Unknown, 05/23/16) Uncoded Allergies: AMLIODIPINE (Allergy, Unknown, 05/23/16) PENICILLIN (Allergy, Unknown, 12/03/19) Tolerated Ceftriaxone on 12/02/19 Objective Last 24 Hour Vital Signs Date Time Temp Pulse Resp B/P (MAP) Pulse Ox O2 Delivery O2 Flow Rate FiO2 12/11/19 12:00 74 12/11/19 12:00 96.7 87 20 133/61 (85) 96 12/11/19 09:00 Room Air 12/11/19 08:00 96.6 72 19 128/55 (79) 96 12/11/19 08:00 71 12/11/19 07:00 72 18 96 Room Air 21 12/11/19 04:00 98.2 63 18 131/60 (83) 96 12/11/19 04:00 73 12/11/19 00:00 87 12/11/19 00:00 99.0 84 18 91/61 (71) 82 12/10/19 20:00 84 12/10/19 20:00 99.2 91 18 105/52 (69) 90 12/10/19 19:00 84 18 96 Room Air 21 12/10/19 16:00 98.1 96 18 118/53 (74) 97 12/10/19 16:00 96 Intake and Output 12/10/19 12/11/19 19:00 07:00 Intake Total 345 ml Output Total 350 ml 500 ml Balance -350 ml -155 ml Intake Free Water 50 ml Tube Feeding 55 ml Other 240 ml Output Urine Total 350 ml 500 ml # Bowel Movements 1 3 General Appearance: cachetic HEENT: normocephalic, atraumatic Respiratory: chest wall non-tender, lungs clear Cardiovascular: normal peripheral pulses Abdomen: normal bowel sounds, soft, non tender Extremities: no cyanosis Skin: no ulcers Neurologic: no motor/sensory deficits Lymphatic: no neck adenopathy Laboratory Tests 12/11/19 06:15: White Blood Count 13.5H, Red Blood Count 3.56L, Hemoglobin 9.7L, Hematocrit 30.8L, Mean Corpuscular Volume 87, Mean Corpuscular Hemoglobin 27.2, Mean Corpuscular Hemoglobin Concent 31.4L, Red Cell Distribution Width 13.6, Platelet Count 379, Mean Platelet Volume 5.5L, Neutrophils (%) (Auto) 83.0H, Lymphocytes (%) (Auto) 6.3L, Monocytes (%) (Auto) 9.7, Eosinophils (%) (Auto) 0.3, Basophils (%) (Auto) 0.7, Sodium Level 142, Potassium Level 4.6, Chloride Level 104, Carbon Dioxide Level 32, Anion Gap 6, Blood Urea Nitrogen 73H, Creatinine 1.8H, Estimat Glomerular Filtration Rate 35.8, Glucose Level 215H, Calcium Level 8.9 12/11/19 11:37: POC Whole Blood Glucose 181H Current Medications Medications (Trade) Dose Ordered Sig/James Route PRN Reason Start Time Stop Time Status Last Admin Dose Admin Acetaminophen (Tylenol) 650 mg Q4H PRN ORAL fever 12/03/19 18:48 01/02/20 18:47 Apixaban (Eliquis) 2.5 mg BID ORAL 12/05/19 09:00 03/04/20 08:59 12/11/19 08:44 Barium Sulfate (Varibar Honey) 250 ml NOW PRN MC RAD 12/08/19 14:00 12/11/19 13:57 Barium Sulfate (Varibar Wade) 240 ml NOW PRN MC RAD 12/08/19 14:00 12/11/19 13:57 Barium Sulfate (Varibar Pudding) 230 ml NOW PRN MC RAD 12/08/19 14:00 12/11/19 13:57 Barium Sulfate (Varibar Thin Liquid powder) 148 gm NOW PRN MC RAD 12/08/19 14:00 12/11/19 13:57 Clonidine HCl (Catapres Tab) 0.1 mg Q4H PRN ORAL For High Blood Pressure 12/03/19 19:15 03/01/20 19:14 Dextrose (Dextrose 50%) 25 ml Q30M PRN IV Hypoglycemia 12/03/19 18:45 03/01/20 19:14 Dextrose (Dextrose 50%) 50 ml Q30M PRN IV Hypoglycemia 12/03/19 18:45 03/01/20 19:14 Escitalopram Oxalate (Lexapro) 10 mg DAILY ORAL 12/04/19 09:00 01/02/20 08:59 12/11/19 08:44 Folic Acid (Folate) 2 mg DAILY NG 12/05/19 09:00 01/04/20 08:59 12/11/19 08:44 Insulin Aspart (NovoLOG) BEFORE MEALS AND HS SUBQ 12/03/19 21:00 03/01/20 20:59 12/11/19 12:01 Lansoprazole (Prevacid) 30 mg DAILY GT 12/10/19 09:00 01/09/20 08:59 12/11/19 08:44 Nitroglycerin (Ntg) 0.4 mg Q5M X 3 DOSES PRN SL Prn Chest Pain 12/03/19 18:45 01/01/20 19:14 Ondansetron HCl (Zofran) 4 mg Q6H PRN IVP Nausea & Vomiting 12/03/19 19:15 01/01/20 19:14 Polyethylene Glycol (Miralax) 17 gm BEDTIME ORAL 12/06/19 21:00 01/05/20 20:59 12/10/19 21:34 Promethazine HCl/ Codeine (Phenergan with Codeine) 5 ml Q4H PRN ORAL For Cough 12/03/19 19:15 01/01/20 19:14 Assessment/Plan Problems: (1) Altered level of consciousness (2) UTI (urinary tract infection) (3) Severe protein-calorie malnutrition (4) History of diabetes mellitus (5) History of hypertension (6) Alzheimer's dementia (7) Unilateral weakness (8) Subdural hematoma (9) Colon cancer Assessment/Plan Mri of hip reviewe ortho consult CT guided drainage ordered Urine has GNB, MDR Klebsiella Abx as per ID Meropenem and Vancomycin f/u electrolytes swallow study reviewed. swallow evaluation pending Neurology note appreciated Cherelle Vera MD Dec 11, 2019 13:25
[2019-12-11 14:33] LABS: APPEARANCE,URINE CLEAR; BILIRUBIN, URINE NEGATIVE (NEGATIVE); GLUCOSE, URINE (UA) NEGATIVE (NEGATIVE); KETONES,URINE NEGATIVE (NEGATIVE); LEUKOCYTE ESTERASE ,URINE 1+ (NEGATIVE); NITRITE,URINE NEGATIVE (NEGATIVE); PH,URINE 6.5 (4.5-8.0); PROTEIN,URINE 2+ (NEGATIVE); UROBILINOGEN,URINE NORMAL MG/DL (0.0-1.0)
[2019-12-11 14:37] LABS: COLOR,URINE YELLOW
[2019-12-11 16:00] VITALS: BP 120/64
--- NOTE | 2019-12-11 16:11 | Infectious Diseases Prog Note ---
Assessment/Plan Assessment: COVID19 neg x1 (12/01 rapid COVID PCR neg) UTI, SP rx -u/a wbc tnct, nit neg, leuk +3; ucx >100k ESBL K. pna Afebrile Leukocytosis; recurrent -12/01 Bcx NTD Probable PNA -12/04 CXR: no acute process -12/01 CXR: Obscured left hemidiaphragm, could indicate pleural fluid and/ orparenchymal consolidation/atelectasis. Correlate with clinical findings Acute encephalopathy/facial droop- Multifocal infarcts -12/08 MRI/MRA head/neck: No MRI evidence of proximal intracranial cerebrovascular insufficiency -12/01 Brain MRI wo: Multifocal infarcts the largest of which are located within the norberto left of midline as well as the left frontal lobe medially. Multifocal lacunar infarcts are noted scattered bilaterally including the cerebellar hemispheres and the left cerebellar peduncle. Age-related changes. CT head wo: Age-related atrophy and small vessel disease of aging, similar to that noted on the previous study. No acute intracranial pathology. If there is concern for etiology such as early acute lacunar infarcts, magnetic resonance imaging of the brain with diffusion-weighted sequences should be performed for follow-up FRANKY on CKD, worsened, now improvnig -REnal US: Small kidneys bilaterally. No evidence of hydronephrosis. Empty bladder with a Vela catheter. Incidental finding left renal cyst. 12/08 SP EGD/PEG placement R hip pain -R hip CT: No evidence of acute bony trauma or significant soft tissue trauma. Rectal fecal impaction. Colonic diverticulosis Dm2 HTN HLD colon CA sp treatment Alzheimer's dementia fall w/ resultant [facility] resident ([facility]) Plan: -Continue to monitor off abx unless febrile, increasing wbc -12/08 SP Meropenem #7 -/10/19 SP Vancomycin #4 -12/02 Sp Aztreonam #1 -12/01 SP Ceftriaxone x1 -f/u cx -Monitor CBC/CMP, temperatures -aspiration precautions -PEG care -Cdiff if diarrhea -CXR, u/a w/ reflex Thank you for this consultation. Will continue to follow along with you. Discussed with RN. Subjective Allergies: Coded Allergies: ATENOLOL (Verified Allergy, Unknown, 05/23/16) LOSARTAN (Verified Allergy, Unknown, 05/23/16) SIMVASTATIN (Verified Allergy, Unknown, 05/23/16) Uncoded Allergies: AMLIODIPINE (Allergy, Unknown, 05/23/16) PENICILLIN (Allergy, Unknown, 12/03/19) Tolerated Ceftriaxone on 12/02/19 afebrile wbc and Cr increased Objective Last 24 Hour Vital Signs Date Time Temp Pulse Resp B/P (MAP) Pulse Ox O2 Delivery O2 Flow Rate FiO2 12/11/19 12:00 74 12/11/19 12:00 96.7 87 20 133/61 (85) 96 12/11/19 09:00 Room Air 12/11/19 08:00 96.6 72 19 128/55 (79) 96 12/11/19 08:00 71 12/11/19 07:00 72 18 96 Room Air 21 12/11/19 04:00 98.2 63 18 131/60 (83) 96 12/11/19 04:00 73 12/11/19 00:00 87 12/11/19 00:00 99.0 84 18 91/61 (71) 82 12/10/19 20:00 84 12/10/19 20:00 99.2 91 18 105/52 (69) 90 12/10/19 19:00 84 18 96 Room Air 21 Height (Feet): 5 Height (Inches): 6.00 Weight (Pounds): 115 General Appearance: no apparent distress Cardiovascular: normal rate Respiratory/Chest: lungs clear - ant Abdomen: normal bowel sounds, non tender, soft Extremities: no swelling Laboratory Tests Test 12/11/19 06:15 12/11/19 11:37 12/11/19 13:30 White Blood Count 13.5 K/UL (4.8-10.8) H Red Blood Count 3.56 M/UL (4.70-6.10) L Hemoglobin 9.7 G/DL (14.2-18.0) L Hematocrit 30.8 % (42.0-52.0) L Mean Corpuscular Volume 87 FL (80-99) Mean Corpuscular Hemoglobin 27.2 PG (27.0-31.0) Mean Corpuscular Hemoglobin Concent 31.4 G/DL (32.0-36.0) L Red Cell Distribution Width 13.6 % (11.6-14.8) Platelet Count 379 K/UL (150-450) Mean Platelet Volume 5.5 FL (6.5-10.1) L Neutrophils (%) (Auto) 83.0 % (45.0-75.0) H Lymphocytes (%) (Auto) 6.3 % (20.0-45.0) L Monocytes (%) (Auto) 9.7 % (1.0-10.0) Eosinophils (%) (Auto) 0.3 % (0.0-3.0) Basophils (%) (Auto) 0.7 % (0.0-2.0) Sodium Level 142 MMOL/L (136-145) Potassium Level 4.6 MMOL/L (3.5-5.1) Chloride Level 104 MMOL/L (98-107) Carbon Dioxide Level 32 MMOL/L (21-32) Anion Gap 6 mmol/L (5-15) Blood Urea Nitrogen 73 mg/dL (7-18) H Creatinine 1.8 MG/DL (0.55-1.30) H Estimat Glomerular Filtration Rate 35.8 mL/min (>60) Glucose Level 215 MG/DL (74-106) H Calcium Level 8.9 MG/DL (8.5-10.1) POC Whole Blood Glucose 181 MG/DL (74-106) H Urine Color Yellow Urine Appearance Clear Urine pH 6.5 (4.5-8.0) Urine Specific [place] 1.010 (1.005-1.035) Urine Protein 2+ (NEGATIVE) H Urine Glucose (UA) Negative (NEGATIVE) Urine Ketones Negative (NEGATIVE) Urine Blood 2+ (NEGATIVE) H Urine Nitrite Negative (NEGATIVE) Urine Bilirubin Negative (NEGATIVE) Urine Urobilinogen Normal MG/DL (0.0-1.0) Urine Leukocyte Esterase 1+ (NEGATIVE) H Urine RBC 2-4 /HPF (0 - 0) H Urine WBC 2-4 /HPF (0 - 0) Urine Squamous Epithelial Cells Occasional /LPF Urine Bacteria Occasional /HPF (NONE) Urine Random Sodium 38 mmol/L (20-110) Current Medications Medications (Trade) Dose Ordered Sig/James Route PRN Reason Start Time Stop Time Status Last Admin Dose Admin Acetaminophen (Tylenol) 650 mg Q4H PRN ORAL fever 12/03/19 18:48 01/02/20 18:47 Apixaban (Eliquis) 2.5 mg BID ORAL 12/05/19 09:00 12/3/20 08:59 12/11/19 08:44 Clonidine HCl (Catapres Tab) 0.1 mg Q4H PRN ORAL For High Blood Pressure 12/03/19 19:15 03/01/20 19:14 Dextrose (Dextrose 50%) 25 ml Q30M PRN IV Hypoglycemia 12/03/19 18:45 03/01/20 19:14 Dextrose (Dextrose 50%) 50 ml Q30M PRN IV Hypoglycemia 12/03/19 18:45 03/01/20 19:14 Escitalopram Oxalate (Lexapro) 10 mg DAILY ORAL 12/04/19 09:00 01/02/20 08:59 12/11/19 08:44 Folic Acid (Folate) 2 mg DAILY NG 12/05/19 09:00 01/04/20 08:59 12/11/19 08:44 Insulin Aspart (NovoLOG) BEFORE MEALS AND HS SUBQ 12/03/19 21:00 03/01/20 20:59 12/11/19 12:01 Lansoprazole (Prevacid) 30 mg DAILY GT 12/10/19 09:00 01/09/20 08:59 12/11/19 08:44 Nitroglycerin (Ntg) 0.4 mg Q5M X 3 DOSES PRN SL Prn Chest Pain 12/03/19 18:45 01/01/20 19:14 Ondansetron HCl (Zofran) 4 mg Q6H PRN IVP Nausea & Vomiting 12/03/19 19:15 01/01/20 19:14 Polyethylene Glycol (Miralax) 17 gm BEDTIME ORAL 12/06/19 21:00 01/05/20 20:59 12/10/19 21:34 Promethazine HCl/ Codeine (Phenergan with Codeine) 5 ml Q4H PRN ORAL For Cough 12/03/19 19:15 01/01/20 19:14 Velma Lopez M.D. Dec 11, 2019 16:11
--- NOTE | 2019-12-11 17:14 | Diagnostic Imaging Report ---
Indication: Cough Technique: One view of the chest Comparison: 12/05/2019 Findings: Heart is borderline enlarged. The aorta is tortuous ectatic and calcified. There are mitral annular calcifications. The lungs and pleural spaces are clear. No significant interim change Impression: Borderline cardiomegaly No acute process
--- NOTE | 2019-12-11 17:18 | NUR ---
ST NOTE: WEEKLY REPORT: Patient is NPO with PEG as primary means of nutrition/hydration. Patient has not met goals for speech/language or dysphagia therapy. STAFF DEVELOPMENT NURSE plans to continue to see Patient while in house targeting dysphagia, aphasia, dysarthria, and cognitive communication. Dysphagia therapy: Patient seen at bedside, currently NPO with primary means of nutrition/hydration via PEG tube. Patient noted with VERY dry oral mucosa, tissue appears callused around lingual and mod amount of debris found in oral cavity. Patient provided thorough oral care, after this, Patient was able to increase verbal output. Patient given PO trials of thin liquids for swallowing practice. Patient verbally cued to swallow hard and fast for dysphagia exercise effortful swallow which Patient completed x5. Good acceptance of PO trial, adequate labial seal, appears to have poor bolus control and suspected posterior premature spillage, Patient's swallow initiation appears moderately delayed, laryngeal elevation was not well appreciated upon palpation and incomplete in feel. Patient did not exhibit any overt aspiration signs or symptoms, Patient reports aspiration events across 3/5 trials and high suspicion for silent aspiration. Patient refused further trials s/p 5 2.5cc of thin liquids. Patient continues to present with moderately severe oropharyngeal dysphagia, Patients overall mentality returns to baseline. Hope to complete MBSS while Patient is in house to further assess swallowing efficiency and Patients safety with modified textures and use of compensatory maneuvers. STAFF DEVELOPMENT NURSE plans to continue to f/u with Patient for dysphagia therapy 3-5x per week. Speech/Language Therapy: Patients verbal output is limited to max 3-4 word responses, Patient is intelligible in context approx. 75% of the time. Patient reports being orientated x1 only. Educated on additional orientation information. Patient did respond to yes/no questions, with Patient's responses being inconsistent and demonstrating mild receptive aphasia in addition to mild expressive aphasia. Patient was educated on strategies to facilitate communication such as nodding head yes/no to simple questions, asking for communication partner to repeat themselves or request a lead qa analyst. Patient provided language stimulation via modified semantic feature analysis training which STAFF DEVELOPMENT NURSE plans to continue to trial in future sessions. Patient is a strong candidate for STAFF DEVELOPMENT NURSE intervention, would highly benefit from STAFF DEVELOPMENT NURSE at next level of care to evaluate Patient and formulate a plan of care to address Patients cognitive communication deficits, dysphagia, and aphasia. Also, if unable to complete inpatient MBSS tomorrow, Patient would benefit from MBSS in the near future to evaluate swallowing physiology, provide objective information on physiological impairments to target in dysphagia therapy, and to trial compensatory strategies to improve swallowing safety and function. Of note, Patient appearing with flat affect throughout the session, concern for Patients emotional state given condition, consider psych eval? Nursing, please provide oral moisture BID, STAFF DEVELOPMENT NURSE plans to monitor Patients oral hygiene to assure this is being completed. Continue to recommend Patient remain NPO with NGT as primary means of nutrition/hydration. Will follow up tomorrow, hope to complete MBSS, dysphagia therapy, cognitive re-training and speech/language therapy.
--- NOTE | 2019-12-11 17:35 | Internal Med Progress Note ---
Subjective Date of Service: Dec 11, 2019 Physician Name MiriamDarren Attending Physician Darren Spencer MD Current Medications Medications (Trade) Dose Ordered Sig/James Route PRN Reason Start Time Stop Time Status Last Admin Dose Admin Acetaminophen (Tylenol) 650 mg Q4H PRN ORAL fever 12/03/19 18:48 01/02/20 18:47 Apixaban (Eliquis) 2.5 mg BID ORAL 12/05/19 09:00 03/04/20 08:59 12/11/19 17:22 Clonidine HCl (Catapres Tab) 0.1 mg Q4H PRN ORAL For High Blood Pressure 12/03/19 19:15 03/01/20 19:14 Dextrose (Dextrose 50%) 25 ml Q30M PRN IV Hypoglycemia 12/03/19 18:45 03/01/20 19:14 Dextrose (Dextrose 50%) 50 ml Q30M PRN IV Hypoglycemia 12/03/19 18:45 03/01/20 19:14 Escitalopram Oxalate (Lexapro) 10 mg DAILY ORAL 12/04/19 09:00 01/02/20 08:59 12/11/19 08:44 Folic Acid (Folate) 2 mg DAILY NG 12/05/19 09:00 01/04/20 08:59 12/11/19 08:44 Insulin Aspart (NovoLOG) BEFORE MEALS AND HS SUBQ 12/03/19 21:00 03/01/20 20:59 12/11/19 12:01 Lansoprazole (Prevacid) 30 mg DAILY GT 12/10/19 09:00 01/09/20 08:59 12/11/19 08:44 Nitroglycerin (Ntg) 0.4 mg Q5M X 3 DOSES PRN SL Prn Chest Pain 12/03/19 18:45 01/01/20 19:14 Ondansetron HCl (Zofran) 4 mg Q6H PRN IVP Nausea & Vomiting 12/03/19 19:15 01/01/20 19:14 Polyethylene Glycol (Miralax) 17 gm BEDTIME ORAL 12/06/19 21:00 01/05/20 20:59 12/10/19 21:34 Promethazine HCl/ Codeine (Phenergan with Codeine) 5 ml Q4H PRN ORAL For Cough 12/03/19 19:15 01/01/20 19:14 Allergies: Coded Allergies: ATENOLOL (Verified Allergy, Unknown, 05/23/16) LOSARTAN (Verified Allergy, Unknown, 05/23/16) SIMVASTATIN (Verified Allergy, Unknown, 05/23/16) Uncoded Allergies: AMLIODIPINE (Allergy, Unknown, 05/23/16) PENICILLIN (Allergy, Unknown, 12/03/19) Tolerated Ceftriaxone on 12/02/19 ROS Limited/Unobtainable: Yes Subjective 89 YO M admitted with atlered mental status. Now UTI. Cover for Int Med-DR Spencer. S/P colonoscopy/EGD 12/09/19 Objective Last Vital Signs Date Time Temp Pulse Resp B/P (MAP) Pulse Ox O2 Delivery O2 Flow Rate FiO2 12/11/19 16:00 97.7 78 18 120/64 (82) 96 12/11/19 09:00 Room Air 12/11/19 07:00 21 12/09/19 13:40 3 Laboratory Tests Test 12/11/19 06:15 12/11/19 11:37 12/11/19 13:30 12/11/19 16:37 White Blood Count 13.5 K/UL (4.8-10.8) H Red Blood Count 3.56 M/UL (4.70-6.10) L Hemoglobin 9.7 G/DL (14.2-18.0) L Hematocrit 30.8 % (42.0-52.0) L Mean Corpuscular Volume 87 FL (80-99) Mean Corpuscular Hemoglobin 27.2 PG (27.0-31.0) Mean Corpuscular Hemoglobin Concent 31.4 G/DL (32.0-36.0) L Red Cell Distribution Width 13.6 % (11.6-14.8) Platelet Count 379 K/UL (150-450) Mean Platelet Volume 5.5 FL (6.5-10.1) L Neutrophils (%) (Auto) 83.0 % (45.0-75.0) H Lymphocytes (%) (Auto) 6.3 % (20.0-45.0) L Monocytes (%) (Auto) 9.7 % (1.0-10.0) Eosinophils (%) (Auto) 0.3 % (0.0-3.0) Basophils (%) (Auto) 0.7 % (0.0-2.0) Sodium Level 142 MMOL/L (136-145) Potassium Level 4.6 MMOL/L (3.5-5.1) Chloride Level 104 MMOL/L (98-107) Carbon Dioxide Level 32 MMOL/L (21-32) Anion Gap 6 mmol/L (5-15) Blood Urea Nitrogen 73 mg/dL (7-18) H Creatinine 1.8 MG/DL (0.55-1.30) H Estimat Glomerular Filtration Rate 35.8 mL/min (>60) Glucose Level 215 MG/DL (74-106) H Calcium Level 8.9 MG/DL (8.5-10.1) POC Whole Blood Glucose 181 MG/DL (74-106) H 127 MG/DL (74-106) H Urine Color Yellow Urine Appearance Clear Urine pH 6.5 (4.5-8.0) Urine Specific [place] 1.010 (1.005-1.035) Urine Protein 2+ (NEGATIVE) H Urine Glucose (UA) Negative (NEGATIVE) Urine Ketones Negative (NEGATIVE) Urine Blood 2+ (NEGATIVE) H Urine Nitrite Negative (NEGATIVE) Urine Bilirubin Negative (NEGATIVE) Urine Urobilinogen Normal MG/DL (0.0-1.0) Urine Leukocyte Esterase 1+ (NEGATIVE) H Urine RBC 2-4 /HPF (0 - 0) H Urine WBC 2-4 /HPF (0 - 0) Urine Squamous Epithelial Cells Occasional /LPF Urine Bacteria Occasional /HPF (NONE) Urine Random Sodium 38 mmol/L (20-110) Intake and Output 12/10/19 12/11/19 19:00 07:00 Intake Total 345 ml Output Total 350 ml 500 ml Balance -350 ml -155 ml Intake Free Water 50 ml Tube Feeding 55 ml Other 240 ml Output Urine Total 350 ml 500 ml # Bowel Movements 1 3 Objective Objective GENERAL: open eyes more responsive, cachectic, chronic ill appearing. HEENT: Pupils equal and reactive to light, anicteric, NG tube. NECK: Supple. No JVD. LUNGS: Fair bilateral air entry. No wheezing, rhonchi. Decreased air in the bases. HEART: S1, S2. Distant heart sounds. No murmur or gallop. ABDOMEN: Soft, nondistended, nontender. No rebound tenderness. No fluid shift. : Vela cath. EXTREMITIES: No cyanosis, clubbing, or edema. Muscle atrophy to bilateral lower extremities noted. NEUROLOGIC: Cranial nerves II to XII grossly intact, motor right side is weaker than left side. RECTAL/GENITOURINARY: Refused and deferred PSYCHIATRIC: Mood and affect unable to obtain secondary to the patient's status. Assessment/Plan Assessment/Plan Assessment/Plan Assessment/Plan ASSESSMENT: 1. Acute encephalopathy, most likely secondary to toxic metabolic encephalopathy as well as acute CVA. 2. Acute ESBL Klebsiella urinary tract infection. 3. Diabetes type 2. 4. Acute kidney injury, on chronic renal insufficiency. 5. Multifocal infarction, confirmed on MRI. 6. Hypertension. 7. Dyslipidemia. 8. Colon cancer, status post resection. 9. Alzheimer dementia. 10. History of fall with subdural hematoma, resolved. 11. Severe protein-calorie malnutrition. 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 PLAN: In telemetry. Follow up with laboratory and culture. Abx: S/P Meropenem. ID consultation, Dr. Lopez, pulmonary consultation, Dr. Vera, Cardiology consultation with Dr. Beka Saleh, Nephrology consultation with Dr. Vin Otero. Code status: Full code. DVT prophylaxis: Eliquis. Tolerated Tube feeding @ 50 cc/hr. S/P endoscopy/colonoscopy 12/09/19 Darren Pineda MD Dec 11, 2019 17:35
--- NOTE | 2019-12-11 19:30 | NUR ---
NURSE NOTES: Report received from ELLI Baxter. Patient alert and oriented x 1 to 2. Speech is low in tone and garbled. Patient's HOB elevated due to NG tube running. surveillance system monitor intact. Bed at lowest position locked and side rails up with bed alarm activated. Call light in reach. Will continue with plan of care.
--- NOTE | 2019-12-11 19:35 | NUR ---
NURSE HAND-OFF REPORT: Important Events on Shift: ST eval, diarrhea x3 Patient Status: fc,s table Diet: glucerna 1.2 55cc, flush 100cc q6hr Pending Orders: Pending Results/Labs: Pending MD notification: Latest Vital Signs: Temperature 97.7 , Pulse 73 , B/P 120 /64 , Respiratory Rate 18 , O2 SAT 96 , Room Air, O2 Flow Rate 3 . Vital Sign Comment: EKG Rhythm: SR w 1AVB BBB Rhythm change?: Ras RUFFIN Notified?: Ras gonzáles MD Response: Message left await call Latest Zhang Fall Score: 70 Fall Risk: High Risk Safety Measures: Call light Within Reach, Bed Alarm Zone 2, Side Rails Side Rails x3, Bed position Low and Locked. Fall Precautions: Yellow Socks Yellow Gown Report given to Luma Butterfield RN.
--- NOTE | 2019-12-11 19:51 | Cardiology Progress Note ---
Assessment/Plan Assessment/Plan 1. 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 2. Altered mental status, probably secondary to above. 3. Renal insufficiency acute on chronic. 4. Urinary tract infection. 5. History of subdural hematoma post fall. 6. B12 deficiency. 7. Diabetes mellitus. 8. Anemia. 9. Iron deficiency. 10. 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 neuro recommended dapt urin cx + but blood cx neg getting tube feeding carotid less thn 50% stenosis tele sinus no afib or svt 12/10 ct of hip right neg for fx tele sinus , rare pac no afib s/p alb bp seem ok watch renal fx n Subjective Cardiovascular: Denies: chest pain, lightheadedness, palpitations Respiratory: Denies: shortness of breath Gastrointestinal/Abdominal: Denies: abdominal pain Genitourinary: Denies: burning Objective Last 24 Hour Vital Signs Date Time Temp Pulse Resp B/P (MAP) Pulse Ox O2 Delivery O2 Flow Rate FiO2 12/11/19 16:00 97.7 78 18 120/64 (82) 96 12/11/19 16:00 73 12/11/19 12:00 74 12/11/19 12:00 96.7 87 20 133/61 (85) 96 12/11/19 09:00 Room Air 12/11/19 08:00 96.6 72 19 128/55 (79) 96 12/11/19 08:00 71 12/11/19 07:00 72 18 96 Room Air 21 12/11/19 04:00 98.2 63 18 131/60 (83) 96 12/11/19 04:00 73 12/11/19 00:00 87 12/11/19 00:00 99.0 84 18 91/61 (71) 82 12/10/19 20:00 84 12/10/19 20:00 99.2 91 18 105/52 (69) 90 General Appearance: no apparent distress, alert Neck: supple Cardiovascular: normal rate Respiratory/Chest: lungs clear, normal breath sounds Abdomen: normal bowel sounds Extremities: no swelling Intake and Output 12/10/19 12/11/19 19:00 07:00 Intake Total 345 ml Output Total 350 ml 500 ml Balance -350 ml -155 ml Intake Free Water 50 ml Tube Feeding 55 ml Other 240 ml Output Urine Total 350 ml 500 ml # Bowel Movements 1 3 Laboratory Tests Test 12/11/19 06:15 12/11/19 11:37 12/11/19 13:30 12/11/19 16:37 White Blood Count 13.5 K/UL (4.8-10.8) H Red Blood Count 3.56 M/UL (4.70-6.10) L Hemoglobin 9.7 G/DL (14.2-18.0) L Hematocrit 30.8 % (42.0-52.0) L Mean Corpuscular Volume 87 FL (80-99) Mean Corpuscular Hemoglobin 27.2 PG (27.0-31.0) Mean Corpuscular Hemoglobin Concent 31.4 G/DL (32.0-36.0) L Red Cell Distribution Width 13.6 % (11.6-14.8) Platelet Count 379 K/UL (150-450) Mean Platelet Volume 5.5 FL (6.5-10.1) L Neutrophils (%) (Auto) 83.0 % (45.0-75.0) H Lymphocytes (%) (Auto) 6.3 % (20.0-45.0) L Monocytes (%) (Auto) 9.7 % (1.0-10.0) Eosinophils (%) (Auto) 0.3 % (0.0-3.0) Basophils (%) (Auto) 0.7 % (0.0-2.0) Sodium Level 142 MMOL/L (136-145) Potassium Level 4.6 MMOL/L (3.5-5.1) Chloride Level 104 MMOL/L (98-107) Carbon Dioxide Level 32 MMOL/L (21-32) Anion Gap 6 mmol/L (5-15) Blood Urea Nitrogen 73 mg/dL (7-18) H Creatinine 1.8 MG/DL (0.55-1.30) H Estimat Glomerular Filtration Rate 35.8 mL/min (>60) Glucose Level 215 MG/DL (74-106) H Calcium Level 8.9 MG/DL (8.5-10.1) POC Whole Blood Glucose 181 MG/DL (74-106) H 127 MG/DL (74-106) H Urine Color Yellow Urine Appearance Clear Urine pH 6.5 (4.5-8.0) Urine Specific [place] 1.010 (1.005-1.035) Urine Protein 2+ (NEGATIVE) H Urine Glucose (UA) Negative (NEGATIVE) Urine Ketones Negative (NEGATIVE) Urine Blood 2+ (NEGATIVE) H Urine Nitrite Negative (NEGATIVE) Urine Bilirubin Negative (NEGATIVE) Urine Urobilinogen Normal MG/DL (0.0-1.0) Urine Leukocyte Esterase 1+ (NEGATIVE) H Urine RBC 2-4 /HPF (0 - 0) H Urine WBC 2-4 /HPF (0 - 0) Urine Squamous Epithelial Cells Occasional /LPF Urine Bacteria Occasional /HPF (NONE) Urine Random Sodium 38 mmol/L (20-110) Test 12/11/19 19:00 Urine Color Pending Urine Appearance Pending Urine pH Pending Urine Specific [place] Pending Urine Protein Pending Urine Glucose (UA) Pending Urine Ketones Pending Urine Blood Pending Urine Nitrite Pending Urine Bilirubin Pending Urine Urobilinogen Pending Urine Leukocyte Esterase Pending Beka Saleh MD Dec 11, 2019 19:51
[2019-12-11 19:53] LABS: APPEARANCE,URINE CLEAR; BILIRUBIN, URINE NEGATIVE (NEGATIVE); COLOR,URINE PALE YELLOW; GLUCOSE, URINE (UA) NEGATIVE (NEGATIVE); KETONES,URINE NEGATIVE (NEGATIVE); LEUKOCYTE ESTERASE ,URINE 1+ (NEGATIVE); NITRITE,URINE NEGATIVE (NEGATIVE); PH,URINE 7 (4.5-8.0); PROTEIN,URINE 2+ (NEGATIVE); UROBILINOGEN,URINE NORMAL MG/DL (0.0-1.0)
[2019-12-11 20:00] VITALS: BP 128/57
[2019-12-11] MEDS: Miralax 17gm pkt ORAL SCH (21:00)
[2019-12-12] VITALS: BP 107/64
[2019-12-12 04:00] VITALS: BP 102/45
[2019-12-12] MEDS: NovoLOG Insulin Flexpen SUBQ SCH ×4 (06:18→21:37)
--- NOTE | 2019-12-12 07:24 | NUR ---
NURSE NOTES: Report received from ELLI Butterfield. Patient alert and oriented x 1 to 2. Patient's HOB elevated 30 degrees due to NG tube running. cook cold meat intact. Bed at lowest position locked and side rails up with bed alarm activated. Call light in reach.
--- NOTE | 2019-12-12 07:30 | NUR ---
NURSE HAND-OFF REPORT: Important Events on Shift:[Patient tested positive for C-diff] Patient Status: [Stable alert and oriented x2] Diet: [Gtube feeding Glucerna 1.2 at 55 cc per hr with 100 cc h2o flushes q 6 hours] Pending Orders: [] Pending Results/Labs:[] Pending MD notification:[] Latest Vital Signs: Temperature 97.7 , Pulse 73 , B/P 102 /45 , Respiratory Rate 18 , O2 SAT 97 , Room Air, O2 Flow Rate 3 . Vital Sign Comment: [] EKG Rhythm: Sinus Rhythm Rhythm change?: N MD Notified?: MD Response: Latest Zhang Fall Score: 70 Fall Risk: High Risk Safety Measures: Call light Within Reach, Bed Alarm Zone 2, Side Rails Side Rails x3, Bed position Low and Locked. Fall Precautions: Yellow Socks Yellow Gown Report given to [ELLI Roth].
[2019-12-12 08:00] VITALS: BP 101/98
[2019-12-12] MEDS: Eliquis 2.5mg tablet ORAL SCH ×2 (08:05→17:39)
[2019-12-12 09:06] LABS: HEMATOCRIT 27.3 % (42.0-52.0); HEMOGLOBIN 8.6 G/DL (14.2-18.0); MEAN CORPUSCULAR VOLUME 86 FL (80-99); PLATELET COUNT 374 K/UL (150-450); RED BLOOD COUNT 3.17 M/UL (4.70-6.10); RED CELL DISTRIBUTION WIDTH 13.8 % (11.6-14.8)
[2019-12-12 09:28] LABS: ALBUMIN 2.1 G/DL (3.4-5.0); ALBUMIN/GLOBULIN RATIO 0.6 (1.0-2.7); BILIRUBIN,TOTAL 0.3 MG/DL (0.2-1.0); CALCIUM 8.9 MG/DL (8.5-10.1); CREATININE 1.2 MG/DL (0.55-1.30)
--- NOTE | 2019-12-12 09:49 | General Progress Note ---
Assessment/Plan Assessment/Plan: anemia AMS dysphagia DM h/o colon ca RI s/p PEG GTF anemia work up fu labs Subjective ROS Limited/Unobtainable: No Allergies: Coded Allergies: ATENOLOL (Verified Allergy, Unknown, 05/23/16) LOSARTAN (Verified Allergy, Unknown, 05/23/16) SIMVASTATIN (Verified Allergy, Unknown, 05/23/16) Uncoded Allergies: AMLIODIPINE (Allergy, Unknown, 05/23/16) PENICILLIN (Allergy, Unknown, 12/03/19) Tolerated Ceftriaxone on 12/02/19 Objective Last 24 Hour Vital Signs Date Time Temp Pulse Resp B/P (MAP) Pulse Ox O2 Delivery O2 Flow Rate FiO2 12/12/19 08:00 97.9 66 19 101/98 (99) 95 12/12/19 04:00 97.7 73 18 102/45 (64) 97 12/12/19 04:00 74 12/12/19 00:00 96.8 87 18 107/64 (78) 100 12/12/19 00:00 74 12/11/19 20:00 100.0 71 18 128/57 (80) 93 12/11/19 20:00 71 12/11/19 16:00 97.7 78 18 120/64 (82) 96 12/11/19 16:00 73 12/11/19 12:00 74 12/11/19 12:00 96.7 87 20 133/61 (85) 96 Intake and Output 12/11/19 12/12/19 19:00 07:00 Intake Total 305 ml Output Total 800 ml 600 ml Balance -495 ml -600 ml Intake Free Water 250 ml Tube Feeding 55 ml Output Urine Total 800 ml 600 ml # Voids 1 # Bowel Movements 4 Laboratory Tests 12/11/19 11:37: POC Whole Blood Glucose 181H 12/11/19 13:30: Urine Color Yellow, Urine Appearance Clear, Urine pH 6.5, Urine Specific [place] 1.010, Urine Protein 2+H, Urine Glucose (UA) Negative, Urine Ketones Negative, Urine Blood 2+H, Urine Nitrite Negative, Urine Bilirubin Negative, Urine Urobilinogen Normal, Urine Leukocyte Esterase 1+H, Urine RBC 2-4H, Urine WBC 2-4, Urine Squamous Epithelial Cells Occasional, Urine Bacteria Occasional, Urine Random Sodium 38 12/11/19 16:37: POC Whole Blood Glucose 127H 12/11/19 19:00: Urine Color Pale yellow, Urine Appearance Clear, Urine pH 7, Urine Specific [place] 1.005, Urine Protein 2+H, Urine Glucose (UA) Negative, Urine Ketones Negative, Urine Blood 2+H, Urine Nitrite Negative, Urine Bilirubin Negative, Urine Urobilinogen Normal, Urine Leukocyte Esterase 1+H, Urine RBC 2-4H, Urine WBC 0-2, Urine Squamous Epithelial Cells Occasional, Urine Bacteria Occasional 12/12/19 08:00: White Blood Count 13.0H, Red Blood Count 3.17L, Hemoglobin 8.6L, Hematocrit 27.3L, Mean Corpuscular Volume 86, Mean Corpuscular Hemoglobin 27.2, Mean Corpuscular Hemoglobin Concent 31.6L, Red Cell Distribution Width 13.8, Platelet Count 374, Mean Platelet Volume 5.1L, Neutrophils (%) (Auto) , Lymphocytes (%) (Auto) , Monocytes (%) (Auto) , Eosinophils (%) (Auto) , Basophils (%) (Auto) , Neutrophils % (Manual) [Pending], Lymphocytes % (Manual) [Pending], Platelet Estimate [Pending], Platelet Morphology [Pending], Sodium Level 146H, Potassium Level 4.0, Chloride Level 108H, Carbon Dioxide Level 33H, Anion Gap 5, Blood Urea Nitrogen 67H, Creatinine 1.2, Estimat Glomerular Filtration Rate 57.1, Glucose Level 122H, Calcium Level 8.9, Total Bilirubin 0.3 , Aspartate Amino Transf (AST/SGOT) 28, Alanine Aminotransferase (ALT/SGPT) 34, Alkaline Phosphatase 69, Total Protein 5.9L, Albumin 2.1L, Globulin 3.8, Albumin /Globulin Ratio 0.6L Height (Feet): 5 Height (Inches): 6.00 Weight (Pounds): 115 General Appearance: no apparent distress EENT: PERRL/EOMI Neck: supple Cardiovascular: normal rate Respiratory/Chest: decreased breath sounds Abdomen: normal bowel sounds, non tender, soft Extremities: non-tender Mamadou Johnson MD Dec 12, 2019 09:49
[2019-12-12 12:00] VITALS: BP 106/49
--- NOTE | 2019-12-12 12:57 | Nephrology Progress Note ---
Assessment/Plan Problem List: (1) FRANKY (acute kidney injury) (2) Anemia (3) Severe protein-calorie malnutrition (4) Alzheimer's dementia (5) UTI (urinary tract infection) (6) Acute dehydration Assessment Acute on chronic renal failure. Previous admission patient was discharged on serum creatinine of 1.6. Severe malnutrition. Encephalopathy toxic metabolic. Evidence of UTI. Multi-infarct brain disease. Diabetes mellitus Hypertension History of colon cancer Alzheimer's intermediate resident Full code Plan December 11: Lab reviewed. Serum creatinine normalized. Continue per current management. Continue to monitor renal parameters. December 10: Labs reviewed. Creatinine higher. Albumin 5% bolus of 500 cc ordered. Urine studies ordered. Continue to monitor renal parameters. Per orders. December 09: Lab reviewed. Patient has PEG. Stable from renal standpoint of view. Serum creatinine 1.5 December 08: Labs are reviewed. Stable from renal standpoint. December 07: No chemistry panel done today. Will check labs tomorrow. Stable from renal standpoint of view December 06: Renal parameters stable. DC IV fluid. Continue per consultants. December 05: Renal parameters improving. Continue IV fluid. Continue to monitor renal parameters and electrolytes. Medication list reviewed. Abnormal electrolyte addressed. December 04: Serum creatinine improving. IV fluid changed to D5W 30 cc an hour. Feeding through NG tube is in process. Continue to monitor electrolytes and renal parameters. December 03: Late note entry due to system problem at the [facility] today. Serum creatinine improving. Folic acid supplement given. Continue to monitor renal parameters Slow hydrate Monitor renal parameters urine output Antibiotics Avoid nephrotoxic's Per consultants Improve nutritional status as possible Subjective ROS Limited/Unobtainable: Yes Objective Objective Last 24 Hour Vital Signs Date Time Temp Pulse Resp B/P (MAP) Pulse Ox O2 Delivery O2 Flow Rate FiO2 12/12/19 12:00 96.7 73 20 106/49 (68) 97 12/12/19 09:00 Room Air 12/12/19 08:00 97.9 66 19 101/98 (99) 95 12/12/19 08:00 65 12/12/19 04:00 97.7 73 18 102/45 (64) 97 12/12/19 04:00 74 12/12/19 00:00 96.8 87 18 107/64 (78) 100 12/12/19 00:00 74 12/11/19 20:00 100.0 71 18 128/57 (80) 93 12/11/19 20:00 71 12/11/19 16:00 97.7 78 18 120/64 (82) 96 12/11/19 16:00 73 Intake and Output 12/11/19 12/12/19 19:00 07:00 Intake Total 305 ml Output Total 800 ml 600 ml Balance -495 ml -600 ml Intake Free Water 250 ml Tube Feeding 55 ml Output Urine Total 800 ml 600 ml # Voids 1 # Bowel Movements 4 Laboratory Tests 12/11/19 13:30: Urine Color Yellow, Urine Appearance Clear, Urine pH 6.5, Urine Specific [place] 1.010, Urine Protein 2+H, Urine Glucose (UA) Negative, Urine Ketones Negative, Urine Blood 2+H, Urine Nitrite Negative, Urine Bilirubin Negative, Urine Urobilinogen Normal, Urine Leukocyte Esterase 1+H, Urine RBC 2-4H, Urine WBC 2-4, Urine Squamous Epithelial Cells Occasional, Urine Bacteria Occasional, Urine Random Sodium 38 12/11/19 16:37: POC Whole Blood Glucose 127H 12/11/19 19:00: Urine Color Pale yellow, Urine Appearance Clear, Urine pH 7, Urine Specific [place] 1.005, Urine Protein 2+H, Urine Glucose (UA) Negative, Urine Ketones Negative, Urine Blood 2+H, Urine Nitrite Negative, Urine Bilirubin Negative, Urine Urobilinogen Normal, Urine Leukocyte Esterase 1+H, Urine RBC 2-4H, Urine WBC 0-2, Urine Squamous Epithelial Cells Occasional, Urine Bacteria Occasional 12/11/19 21:34: POC Whole Blood Glucose [Pending] 12/12/19 05:38: POC Whole Blood Glucose 147H 12/12/19 08:00: White Blood Count 13.0H, Red Blood Count 3.17L, Hemoglobin 8.6L, Hematocrit 27.3L, Mean Corpuscular Volume 86, Mean Corpuscular Hemoglobin 27.2, Mean Corpuscular Hemoglobin Concent 31.6L, Red Cell Distribution Width 13.8, Platelet Count 374, Mean Platelet Volume 5.1L, Neutrophils (%) (Auto) , Lymphocytes (%) (Auto) , Monocytes (%) (Auto) , Eosinophils (%) (Auto) , Basophils (%) (Auto) , Neutrophils % (Manual) [Pending], Lymphocytes % (Manual) [Pending], Platelet Estimate [Pending], Platelet Morphology [Pending], Sodium Level 146H, Potassium Level 4.0, Chloride Level 108H, Carbon Dioxide Level 33H, Anion Gap 5, Blood Urea Nitrogen 67H, Creatinine 1.2, Estimat Glomerular Filtration Rate 57.1, Glucose Level 122H, Calcium Level 8.9, Total Bilirubin 0.3 , Aspartate Amino Transf (AST/SGOT) 28, Alanine Aminotransferase (ALT/SGPT) 34, Alkaline Phosphatase 69, Total Protein 5.9L, Albumin 2.1L, Globulin 3.8, Albumin /Globulin Ratio 0.6L Height (Feet): 5 Height (Inches): 6.00 Weight (Pounds): 115 General Appearance: no apparent distress Cardiovascular: normal rate Respiratory/Chest: decreased breath sounds Abdomen: distended Vin Otero MD Dec 12, 2019 12:57
--- NOTE | 2019-12-12 13:07 | Pulmonology Progress Note ---
Subjective ROS Limited/Unobtainable: Yes Constitutional: Reports: no symptoms HEENT: Repors: no symptoms Allergies: Coded Allergies: ATENOLOL (Verified Allergy, Unknown, 05/23/16) LOSARTAN (Verified Allergy, Unknown, 05/23/16) SIMVASTATIN (Verified Allergy, Unknown, 05/23/16) Uncoded Allergies: AMLIODIPINE (Allergy, Unknown, 05/23/16) PENICILLIN (Allergy, Unknown, 12/03/19) Tolerated Ceftriaxone on 12/02/19 Objective Last 24 Hour Vital Signs Date Time Temp Pulse Resp B/P (MAP) Pulse Ox O2 Delivery O2 Flow Rate FiO2 12/12/19 12:00 96.7 73 20 106/49 (68) 97 12/12/19 09:00 Room Air 12/12/19 08:00 97.9 66 19 101/98 (99) 95 12/12/19 08:00 65 12/12/19 04:00 97.7 73 18 102/45 (64) 97 12/12/19 04:00 74 12/12/19 00:00 96.8 87 18 107/64 (78) 100 12/12/19 00:00 74 12/11/19 20:00 100.0 71 18 128/57 (80) 93 12/11/19 20:00 71 12/11/19 16:00 97.7 78 18 120/64 (82) 96 12/11/19 16:00 73 Intake and Output 12/11/19 12/12/19 19:00 07:00 Intake Total 305 ml Output Total 800 ml 600 ml Balance -495 ml -600 ml Intake Free Water 250 ml Tube Feeding 55 ml Output Urine Total 800 ml 600 ml # Voids 1 # Bowel Movements 4 General Appearance: cachetic HEENT: normocephalic, atraumatic Respiratory: chest wall non-tender, lungs clear Cardiovascular: normal peripheral pulses Abdomen: normal bowel sounds, soft, non tender Extremities: no cyanosis Skin: no ulcers Neurologic: no motor/sensory deficits Lymphatic: no neck adenopathy Microbiology Date/Time Source Procedure Growth Status 12/11/19 14:00 Stool Clostridium difficile Toxin Assay - Final Complete Laboratory Tests 12/11/19 13:30: Urine Color Yellow, Urine Appearance Clear, Urine pH 6.5, Urine Specific [place] 1.010, Urine Protein 2+H, Urine Glucose (UA) Negative, Urine Ketones Negative, Urine Blood 2+H, Urine Nitrite Negative, Urine Bilirubin Negative, Urine Urobilinogen Normal, Urine Leukocyte Esterase 1+H, Urine RBC 2-4H, Urine WBC 2-4, Urine Squamous Epithelial Cells Occasional, Urine Bacteria Occasional, Urine Random Sodium 38 12/11/19 16:37: POC Whole Blood Glucose 127H 12/11/19 19:00: Urine Color Pale yellow, Urine Appearance Clear, Urine pH 7, Urine Specific [place] 1.005, Urine Protein 2+H, Urine Glucose (UA) Negative, Urine Ketones Negative, Urine Blood 2+H, Urine Nitrite Negative, Urine Bilirubin Negative, Urine Urobilinogen Normal, Urine Leukocyte Esterase 1+H, Urine RBC 2-4H, Urine WBC 0-2, Urine Squamous Epithelial Cells Occasional, Urine Bacteria Occasional 12/11/19 21:34: POC Whole Blood Glucose [Pending] 12/12/19 05:38: POC Whole Blood Glucose 147H 12/12/19 08:00: White Blood Count 13.0H, Red Blood Count 3.17L, Hemoglobin 8.6L, Hematocrit 27.3L, Mean Corpuscular Volume 86, Mean Corpuscular Hemoglobin 27.2, Mean Corpuscular Hemoglobin Concent 31.6L, Red Cell Distribution Width 13.8, Platelet Count 374, Mean Platelet Volume 5.1L, Neutrophils (%) (Auto) , Lymphocytes (%) (Auto) , Monocytes (%) (Auto) , Eosinophils (%) (Auto) , Basophils (%) (Auto) , Neutrophils % (Manual) [Pending], Lymphocytes % (Manual) [Pending], Platelet Estimate [Pending], Platelet Morphology [Pending], Sodium Level 146H, Potassium Level 4.0, Chloride Level 108H, Carbon Dioxide Level 33H, Anion Gap 5, Blood Urea Nitrogen 67H, Creatinine 1.2, Estimat Glomerular Filtration Rate 57.1, Glucose Level 122H, Calcium Level 8.9, Total Bilirubin 0.3 , Aspartate Amino Transf (AST/SGOT) 28, Alanine Aminotransferase (ALT/SGPT) 34, Alkaline Phosphatase 69, Total Protein 5.9L, Albumin 2.1L, Globulin 3.8, Albumin /Globulin Ratio 0.6L Current Medications Medications (Trade) Dose Ordered Sig/James Route PRN Reason Start Time Stop Time Status Last Admin Dose Admin Acetaminophen (Tylenol) 650 mg Q4H PRN ORAL fever 12/03/19 18:48 01/02/20 18:47 Apixaban (Eliquis) 2.5 mg BID ORAL 12/05/19 09:00 03/04/20 08:59 12/12/19 08:05 Clonidine HCl (Catapres Tab) 0.1 mg Q4H PRN ORAL For High Blood Pressure 12/03/19 19:15 03/01/20 19:14 Dextrose (Dextrose 50%) 25 ml Q30M PRN IV Hypoglycemia 12/03/19 18:45 03/01/20 19:14 Dextrose (Dextrose 50%) 50 ml Q30M PRN IV Hypoglycemia 12/03/19 18:45 03/01/20 19:14 Escitalopram Oxalate (Lexapro) 10 mg DAILY ORAL 12/04/19 09:00 01/02/20 08:59 12/12/19 08:05 Folic Acid (Folate) 2 mg DAILY NG 12/05/19 09:00 01/04/20 08:59 12/12/19 08:05 Insulin Aspart (NovoLOG) BEFORE MEALS AND HS SUBQ 12/03/19 21:00 03/01/20 20:59 12/12/19 11:17 Lansoprazole (Prevacid) 30 mg DAILY GT 12/10/19 09:00 01/09/20 08:59 12/12/19 08:07 Nitroglycerin (Ntg) 0.4 mg Q5M X 3 DOSES PRN SL Prn Chest Pain 12/03/19 18:45 01/01/20 19:14 Ondansetron HCl (Zofran) 4 mg Q6H PRN IVP Nausea & Vomiting 12/03/19 19:15 01/01/20 19:14 Polyethylene Glycol (Miralax) 17 gm BEDTIME ORAL 12/06/19 21:00 01/05/20 20:59 12/10/19 21:34 Promethazine HCl/ Codeine (Phenergan with Codeine) 5 ml Q4H PRN ORAL For Cough 12/03/19 19:15 01/01/20 19:14 Assessment/Plan Problems: (1) Altered level of consciousness (2) UTI (urinary tract infection) (3) Severe protein-calorie malnutrition (4) History of diabetes mellitus (5) History of hypertension (6) Alzheimer's dementia (7) Unilateral weakness (8) Subdural hematoma (9) Colon cancer Assessment/Plan wbc still high Urine has GNB, MDR Klebsiella Abx as per ID Meropenem and Vancomycin f/u electrolytes swallow study reviewed. swallow evaluation pending Neurology note appreciated Cherelle Vera MD Dec 12, 2019 13:07
[2019-12-12] MEDS ORDERED: Varibar Pudding 230ml MC PRN (13:15)
[2019-12-12] MEDS ORDERED: Varibar Honey 250ml MC PRN (13:15)
[2019-12-12] MEDS ORDERED: Varibar Nectar 240ml MC PRN (13:15)
[2019-12-12] MEDS ORDERED: Varibar Thin Liquid powder 148gm MC PRN (13:15)
--- NOTE | 2019-12-12 13:42 | NUR ---
*-*DISCHARGE PLANNING*-* PATIENT HAS BEEN REFERRED TO: [facility] P: [phone] F: [phone] ROOM#19-B SKILLED SPEECH EVAL PRIOR TO DC NO DC ORDER AT THIS TIME
--- NOTE | 2019-12-12 14:04 | NUR ---
NURSE NOTES: Per Minor Wound nurse, keep pt on right and supine for majority of day. left side ok, but not to much as there is a sacral DTI on that side.
--- NOTE | 2019-12-12 14:41 | Surgery Progress Note ---
Surgery Progress Note Subjective Symptoms: improved, tolerating diet, passing flatus Objective Last 24 Hour Vital Signs Date Time Temp Pulse Resp B/P (MAP) Pulse Ox O2 Delivery O2 Flow Rate FiO2 12/12/19 12:00 76 12/12/19 12:00 96.7 73 20 106/49 (68) 97 12/12/19 09:00 Room Air 12/12/19 08:00 97.9 66 19 101/98 (99) 95 12/12/19 08:00 65 12/12/19 04:00 97.7 73 18 102/45 (64) 97 12/12/19 04:00 74 12/12/19 00:00 96.8 87 18 107/64 (78) 100 12/12/19 00:00 74 12/11/19 20:00 100.0 71 18 128/57 (80) 93 12/11/19 20:00 71 12/11/19 16:00 97.7 78 18 120/64 (82) 96 12/11/19 16:00 73 I&O Intake and Output 12/11/19 12/12/19 19:00 07:00 Intake Total 305 ml Output Total 800 ml 600 ml Balance -495 ml -600 ml Intake Free Water 250 ml Tube Feeding 55 ml Output Urine Total 800 ml 600 ml # Voids 1 # Bowel Movements 4 Dressing: saturated Cardiovascular: RSR Respiratory: clear, decreased breath sounds Abdomen: non-tender, present bowel sounds, other, non-distended Extremities: no edema, no tenderness, no cyanosis Laboratory Tests Test 12/11/19 16:37 12/11/19 19:00 12/11/19 21:34 12/12/19 05:38 POC Whole Blood Glucose 127 MG/DL (74-106) H Pending 147 MG/DL (74-106) H Urine Color Pale yellow Urine Appearance Clear Urine pH 7 (4.5-8.0) Urine Specific [place] 1.005 (1.005-1.035) Urine Protein 2+ (NEGATIVE) H Urine Glucose (UA) Negative (NEGATIVE) Urine Ketones Negative (NEGATIVE) Urine Blood 2+ (NEGATIVE) H Urine Nitrite Negative (NEGATIVE) Urine Bilirubin Negative (NEGATIVE) Urine Urobilinogen Normal MG/DL (0.0-1.0) Urine Leukocyte Esterase 1+ (NEGATIVE) H Urine RBC 2-4 /HPF (0 - 0) H Urine WBC 0-2 /HPF (0 - 0) Urine Squamous Epithelial Cells Occasional /LPF Urine Bacteria Occasional /HPF (NONE) Test 12/12/19 08:00 White Blood Count 13.0 K/UL (4.8-10.8) H Red Blood Count 3.17 M/UL (4.70-6.10) L Hemoglobin 8.6 G/DL (14.2-18.0) L Hematocrit 27.3 % (42.0-52.0) L Mean Corpuscular Volume 86 FL (80-99) Mean Corpuscular Hemoglobin 27.2 PG (27.0-31.0) Mean Corpuscular Hemoglobin Concent 31.6 G/DL (32.0-36.0) L Red Cell Distribution Width 13.8 % (11.6-14.8) Platelet Count 374 K/UL (150-450) Mean Platelet Volume 5.1 FL (6.5-10.1) L Neutrophils (%) (Auto) % (45.0-75.0) Lymphocytes (%) (Auto) % (20.0-45.0) Monocytes (%) (Auto) % (1.0-10.0) Eosinophils (%) (Auto) % (0.0-3.0) Basophils (%) (Auto) % (0.0-2.0) Differential Total Cells Counted 100 Neutrophils % (Manual) 89 % (45-75) H Lymphocytes % (Manual) 6 % (20-45) L Monocytes % (Manual) 4 % (1-10) Eosinophils % (Manual) 1 % (0-3) Basophils % (Manual) 0 % (0-2) Band Neutrophils 0 % (0-8) Platelet Estimate Adequate Platelet Morphology Normal Hypochromasia 2+ Anisocytosis 1+ Sodium Level 146 MMOL/L (136-145) H Potassium Level 4.0 MMOL/L (3.5-5.1) Chloride Level 108 MMOL/L (98-107) H Carbon Dioxide Level 33 MMOL/L (21-32) H Anion Gap 5 mmol/L (5-15) Blood Urea Nitrogen 67 mg/dL (7-18) H Creatinine 1.2 MG/DL (0.55-1.30) Estimat Glomerular Filtration Rate 57.1 mL/min (>60) Glucose Level 122 MG/DL (74-106) H Calcium Level 8.9 MG/DL (8.5-10.1) Total Bilirubin 0.3 MG/DL (0.2-1.0) Aspartate Amino Transf (AST/SGOT) 28 U/L (15-37) Alanine Aminotransferase (ALT/SGPT) 34 U/L (12-78) Alkaline Phosphatase 69 U/L (46-116) Total Protein 5.9 G/DL (6.4-8.2) L Albumin 2.1 G/DL (3.4-5.0) L Globulin 3.8 g/dL Albumin/Globulin Ratio 0.6 (1.0-2.7) L Plan Problems: (1) History of diabetes mellitus (2) History of hypertension (3) Alzheimer's dementia (4) UTI (urinary tract infection) (5) Unilateral weakness (6) Acute dehydration (7) Altered level of consciousness (8) Subdural hematoma (9) Colon cancer Assessment & Plan: Exam is limited due to patient being contracted. No evidence of acute fracture. No dislocation. The joint spaces are preserved. There is some edema of the right buttock region subcutaneous fat, but no evidence of soft tissue contusion demonstrated. No evidence of pelvic fracture. The rectum is distended by dense stool. There is a Vela catheter within the bladder. A small amount of urine within the bladder despite Vela catheter. There are colonic diverticula. Impression: No evidence of acute bony trauma or significant soft tissue trauma Rectal fecal impaction Colonic diverticulosis (10) Severe protein-calorie malnutrition Assessment & Plan: planned PEG s/p peg tf as tolerated DAILY ESTIMATED NEEDS: Needs based on Underweight, wasting, wound 40kg 30-35 kcals/kg 2789-7325 total kcals 1.25-2 g protein/kg 50-80 g total protein 25-30ml/kcal mL/kg 7414-0189 total fluid mLs NUTRITION DIAGNOSIS: Increased kcal and pro needs r/t underweight status as evidenced by low BMI, moderate to severe generalized wasting, w/ multiple areas of skin compromise, DTI x4. CURRENT DIET: NPO ENTERAL NUTRITION RECOMMENDATIONS: Glucerna 1.2 goal of 45ml/hr x24 hrs to provide 1080ml, 1296 kcal, 65g pro, 869ml free h2O - Obtain GI access, initiate Glucerna 1.2 @25ml/hr for 6 hrs - Advance as tolerated 10ml/hr q4-6 hrs to goal - Flush per MD/ HOB over 30 degrees ------ ADDITIONAL RECOMMENDATIONS: 1) W/ poor po intake, add Ensure TID -> not appropriate for oral po W/ elevated BG rec Glucerna TID-> not appropriate for oral po 2) Add FRANCISCA BID -> f/up w WC eval 3) TOLL LINE REPAIRER eval for texture, need for non oral feeds-> S/p TOLL LINE REPAIRER eval, not appropriate for oral diet, TF recs as above 4) Calibrated bed scale wts daily 5) Monitor lytes w/ TF, replete as needed ACUTE: ALOC x2 days with right side paralysis, CVA, intracranial bleed, seizure , postictal state, major electrolyte abnormality, severe sepsis, Acute dehydration. H/O: subdural hematoma, colon cancer status post treatment, HTN, Syncope and collapse, anemia, DM2, Alzheimer Dementia, CKD, severe protein-calorie malnutrition, hyperlipidemia, vitamin B12 deficiency, muscle wasting, lack of coordination. POLST: Not in chart. RELEVANT MEDS: Albuterol (SOB); Zofran (Nausea); Restoril (insomnia). VITALS ON 2L NASAL CANNULA: HR: 67; RR: 19; SP02 100% PLOF: Pt consumed mechanical soft with thin liquids [facility] at [facility]. Pt seen at bedside appears frail and weak. Pt able to open eye to verbal communication. Pt noted with copious, thick phlegm and debris in BOT and throughout oral cavity. Pt provided oral moisturizer and thorough oral care with Yankauer suction, removing thick phlegm, mildly improved verbal communication s/p oral care. Pt able to nod head yes when asked if Pt gets thickened liquids. 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 Pt given PO trial of nectar thick liquid teaspoons. Oral phase characterized by functional labial seal, poor bolus control resulting in suspected premature posterior spillage and subsequent suspected silent aspiration given laryngeal elevation was not well appreciated upon palpation despite verbal and tactile cues to Pt's larynx to initiate swallow; no swallow initiated. Pt did not cough or attempt to clear trial. Pt was able to eventually initiate a swallow with a 20 second delay, laryngeal elevation incomplete in feel upon palpation. Pt is a high risk for silent aspiration, would benefit from MBSS in future ( will monitor Pt's candidacy, not appropriate to participate in MBSS at this time ). RECOMMENDATIONS: 1. NPO with nutrition, hydration, and meds via NGT (12 Icelandic). 2. Please provide oral care BID 3. Dysphagia therapy 3-5x per week x1 week. 4. Will monitor Pts appropriateness to participate in MBSS. 5. Pt would benefit from Speech, Language, and Cognitive communication evaluation given s/p lacunar infarcts. (11) Decubitus skin ulcer Assessment & Plan: Pt presented on admission with multiple Pressure injuries. Reabsorbing DTPI L Elbow. Base of Pressure Injury is dry and black centrally with maroon borders(L)2cm x (W)1.5cm. DTPI Sacrum (L)9.5cm x (W)11.5cm. Base of Pressure Injury is indurated purpuric with surrounding maroon borders. Pt verbalized tenderness when affected site minimally palpated. DTPI R Ischium(L)8cm x (W)9.5cm. Base of pressure injury is purpuric with maroon borders. Tender when minimally palpated. DTPI L trochanter(L)4cm x (W)3.2cm. Base of injury is purpuric with surrounding [place] borders. Tender when minimally palpated. DTPI L Ischium (L)7cm x (W)5.4cm.Base of Injury is black with marginal erythema . Tender when minimally palpated. R Heel is boggy with non-blanchable erythema (L)3cm x (W)3.5cm. L Heel is boggy with non-Blanchable erythema(L)5cm x (W)3.5cm. L 1st metatarsal erythematous,tip is fluctuant. Pt complained tender when minimally palpated. No elevation in skin temp noted. Dry scab noted to dorsal L 2nd metatarsal. Tx.Plan: Apply Moisture Barrier Paste to Sacrum and bilat ischial tuberosities. Cover each site with Optifoam drsgs. Change every 3 days and prn. Apply Cavilon Skin Barrier to R and L trochanter. Cover each site with Optifoam drsgs. Change every 7 days and prn Apply Cavilon Skin Barrier to L and R elbows. Cover each site with Optifoam drsgs. Change every 7 days and prn. Apply Cavilon Skin Barrier to both heels and Malleoli. Cover each site with Optifoam drsgs. Change every 7 days and prn. Apply Cavilon Skin Barrier to bony prominences and cover with Optifoam drsgs as needed. Reposition at least every 2hours or as tolerated. Off-load heels with pillow. APM/KARTHIK Mattress overlay. (12) Anemia (13) FRANKY (acute kidney injury) (14) Stroke Patel Merrill Dec 12, 2019 14:41
--- NOTE | 2019-12-12 15:31 | NUR ---
NURSE NOTES:WOUND CARE FOLLOW-UP NOTES:L elbow DTPI reabsorbed.Pressure injury is maroon without induration.(L02cm x (W)1.5cm. Sacral DTPI resolving. Base of Pressure injury is maroon without induration. Surrounding non-blanchable erythema without induration.(L)7cm x (W)6cm. At L Iliosacral is DTPI (L)1.5cm x (W)1.2cm. Base of Pressure injury is maroon and indurated. L trochanteric DTPI has resolved.No erythema or induration noted. L Ischial DTPI reabsorbed(L)5.5 cm x (W)4cm. Base of Pressure Injury is black without induration or fluctuance. R ischial DTPI reabsorbed. Base of Pressure injury is dark without erythema, induration or fluctuance noted. R heel is boggy but blanchable. L heel is boggy but blanchable. Pt is emaciated and all other Bony prominences assessed for Skin breakdown . Cavilo applied to protrudig bony prominences of R and L shoulders,both knees and bilat hips and each areas mentioned covered with Optifoam drsgs to minimize further skin breakdown. Tx.Plan:Apply Moisture Barrier Paste to Sacrum and Bilat Ischial tuberosities. Cover each site with Optifoam drsgs. Change every 3 days and prn Apply Cavilon Skin Barrier to L Ilio-Sacral DTPI. Cover with Optifoam drsg. Change every 7 days and prn. Apply Cavilon Skin Barrier to R and L trochanteric areas. Cover each site with Optifoam drsgs. Change every 7 days and prn. Apply Cavilon Skin Barrier to R and L Malleoli and both heels. Cover each site with Optifoam drsg. Change every 7 days and prn. Apply Cavilon Skin Barrier to R and L Elbows. Cover each elbow with Optifoam drsgs. Change every 7 days and prn. Cover Bony Prominences as needed with Optifoam drsgs. Reposition at least every 2hours or as tolerated. Off-load heels with Pillow. APM/KARTHIK Mattress overlay.
[2019-12-12 16:00] VITALS: BP 109/57
--- NOTE | 2019-12-12 16:21 | NUR ---
CASE MANAGEMENT:REVIEW SI;ESBL UTI. ACUTE ENCEPHALOPATHY. S/P PEG PLACEMENT 12/09/19 96.7 73 20 106/49 97% ON RA WBC 13.0 H/H 8.6/27.3 NA+146 BUN 67 ALB 2.1 IS;PREVACID GT QD INSULIN NOVOLOG SUBQ QID ELIQUIS GT BID TUBE FEEDING @ 45 CC/HR W/GOAL OF 55 CC/HR TELE STATUS DCP;FROM [facility] PLAN: DC WHEN WBC LOWER CHECK LABS IN AM
--- NOTE | 2019-12-12 16:58 | Infectious Diseases Prog Note ---
Assessment/Plan Assessment: COVID19 neg x1 (12/01 rapid COVID PCR neg) Cdiff colitis -12/10 Cdif toxin a/ab + UTI, SP rx -u/a wbc tnct, nit neg, leuk +3; ucx >100k ESBL K. pna Low grade fever x1 Leukocytosis; recurrent -12/10 u/a no pyuria CXR: no acute process -12/01 Bcx NTD Probable PNA -12/04 CXR: no acute process -12/01 CXR: Obscured left hemidiaphragm, could indicate pleural fluid and/ orparenchymal consolidation/atelectasis. Correlate with clinical findings Acute encephalopathy/facial droop- Multifocal infarcts -12/08 MRI/MRA head/neck: No MRI evidence of proximal intracranial cerebrovascular insufficiency -12/01 Brain MRI wo: Multifocal infarcts the largest of which are located within the norberto left of midline as well as the left frontal lobe medially. Multifocal lacunar infarcts are noted scattered bilaterally including the cerebellar hemispheres and the left cerebellar peduncle. Age-related changes. CT head wo: Age-related atrophy and small vessel disease of aging, similar to that noted on the previous study. No acute intracranial pathology. If there is concern for etiology such as early acute lacunar infarcts, magnetic resonance imaging of the brain with diffusion-weighted sequences should be performed for follow-up FRANKY on CKD, worsened, now improvnig -REnal US: Small kidneys bilaterally. No evidence of hydronephrosis. Empty bladder with a Vela catheter. Incidental finding left renal cyst. 12/08 SP EGD/PEG placement R hip pain -R hip CT: No evidence of acute bony trauma or significant soft tissue trauma. Rectal fecal impaction. Colonic diverticulosis Dm2 HTN HLD colon CA sp treatment Alzheimer's dementia fall w/ resultant [facility] resident ([facility]) Plan: -Start PO Vancomycin 125mg qid #04/11-14 -12/08 SP Meropenem #7 -12/08/19 SP Vancomycin #4 -12/02 Sp Aztreonam #1 -12/01 SP Ceftriaxone x1 -f/u cx -Monitor CBC/CMP, temperatures -aspiration precautions -PEG care -Cdiff contact isolation Thank you for this consultation. Will continue to follow along with you. Discussed with RN. Subjective Allergies: Coded Allergies: ATENOLOL (Verified Allergy, Unknown, 05/23/16) LOSARTAN (Verified Allergy, Unknown, 05/23/16) SIMVASTATIN (Verified Allergy, Unknown, 05/23/16) Uncoded Allergies: AMLIODIPINE (Allergy, Unknown, 05/23/16) PENICILLIN (Allergy, Unknown, 12/03/19) Tolerated Ceftriaxone on 12/02/19 Tm 100 wbc remains at 13 cdiff positive Objective Last 24 Hour Vital Signs Date Time Temp Pulse Resp B/P (MAP) Pulse Ox O2 Delivery O2 Flow Rate FiO2 12/12/19 16:00 98.1 81 19 109/57 (74) 96 12/12/19 12:00 76 12/12/19 12:00 96.7 73 20 106/49 (68) 97 12/12/19 09:00 Room Air 12/12/19 08:00 97.9 66 19 101/98 (99) 95 12/12/19 08:00 65 12/12/19 04:00 97.7 73 18 102/45 (64) 97 12/12/19 04:00 74 12/12/19 00:00 96.8 87 18 107/64 (78) 100 12/12/19 00:00 74 12/11/19 20:00 100.0 71 18 128/57 (80) 93 12/11/19 20:00 71 Height (Feet): 5 Height (Inches): 6.00 Weight (Pounds): 115 General Appearance: no apparent distress Cardiovascular: normal rate Respiratory/Chest: lungs clear - ant Abdomen: normal bowel sounds, non tender, soft Extremities: no swelling Microbiology Date/Time Source Procedure Growth Status 12/11/19 14:00 Stool Clostridium difficile Toxin Assay - Final Complete Laboratory Tests Test 12/11/19 19:00 12/11/19 21:34 12/12/19 05:38 12/12/19 08:00 Urine Color Pale yellow Urine Appearance Clear Urine pH 7 (4.5-8.0) Urine Specific [place] 1.005 (1.005-1.035) Urine Protein 2+ (NEGATIVE) H Urine Glucose (UA) Negative (NEGATIVE) Urine Ketones Negative (NEGATIVE) Urine Blood 2+ (NEGATIVE) H Urine Nitrite Negative (NEGATIVE) Urine Bilirubin Negative (NEGATIVE) Urine Urobilinogen Normal MG/DL (0.0-1.0) Urine Leukocyte Esterase 1+ (NEGATIVE) H Urine RBC 2-4 /HPF (0 - 0) H Urine WBC 0-2 /HPF (0 - 0) Urine Squamous Epithelial Cells Occasional /LPF Urine Bacteria Occasional /HPF (NONE) POC Whole Blood Glucose Pending 147 MG/DL (74-106) H White Blood Count 13.0 K/UL (4.8-10.8) H Red Blood Count 3.17 M/UL (4.70-6.10) L Hemoglobin 8.6 G/DL (14.2-18.0) L Hematocrit 27.3 % (42.0-52.0) L Mean Corpuscular Volume 86 FL (80-99) Mean Corpuscular Hemoglobin 27.2 PG (27.0-31.0) Mean Corpuscular Hemoglobin Concent 31.6 G/DL (32.0-36.0) L Red Cell Distribution Width 13.8 % (11.6-14.8) Platelet Count 374 K/UL (150-450) Mean Platelet Volume 5.1 FL (6.5-10.1) L Neutrophils (%) (Auto) % (45.0-75.0) Lymphocytes (%) (Auto) % (20.0-45.0) Monocytes (%) (Auto) % (1.0-10.0) Eosinophils (%) (Auto) % (0.0-3.0) Basophils (%) (Auto) % (0.0-2.0) Differential Total Cells Counted 100 Neutrophils % (Manual) 89 % (45-75) H Lymphocytes % (Manual) 6 % (20-45) L Monocytes % (Manual) 4 % (1-10) Eosinophils % (Manual) 1 % (0-3) Basophils % (Manual) 0 % (0-2) Band Neutrophils 0 % (0-8) Platelet Estimate Adequate Platelet Morphology Normal Hypochromasia 2+ Anisocytosis 1+ Sodium Level 146 MMOL/L (136-145) H Potassium Level 4.0 MMOL/L (3.5-5.1) Chloride Level 108 MMOL/L (98-107) H Carbon Dioxide Level 33 MMOL/L (21-32) H Anion Gap 5 mmol/L (5-15) Blood Urea Nitrogen 67 mg/dL (7-18) H Creatinine 1.2 MG/DL (0.55-1.30) Estimat Glomerular Filtration Rate 57.1 mL/min (>60) Glucose Level 122 MG/DL (74-106) H Calcium Level 8.9 MG/DL (8.5-10.1) Total Bilirubin 0.3 MG/DL (0.2-1.0) Aspartate Amino Transf (AST/SGOT) 28 U/L (15-37) Alanine Aminotransferase (ALT/SGPT) 34 U/L (12-78) Alkaline Phosphatase 69 U/L (46-116) Total Protein 5.9 G/DL (6.4-8.2) L Albumin 2.1 G/DL (3.4-5.0) L Globulin 3.8 g/dL Albumin/Globulin Ratio 0.6 (1.0-2.7) L Current Medications Medications (Trade) Dose Ordered Sig/James Route PRN Reason Start Time Stop Time Status Last Admin Dose Admin Acetaminophen (Tylenol) 650 mg Q4H PRN ORAL fever 12/03/19 18:48 01/02/20 18:47 Apixaban (Eliquis) 2.5 mg BID ORAL 12/05/19 09:00 03/04/20 08:59 12/12/19 08:05 Barium Sulfate (Varibar Honey) 250 ml NOW PRN RAD 12/12/19 13:15 12/15/19 13:05 Barium Sulfate (Varibar [place]) 240 ml NOW PRN RAD 12/12/19 13:15 12/15/19 13:05 Barium Sulfate (Varibar Pudding) 230 ml NOW PRN RAD 12/12/19 13:15 12/15/19 13:05 Barium Sulfate (Varibar Thin Liquid powder) 148 gm NOW PRN RAD 12/12/19 13:15 12/15/19 13:05 Clonidine HCl (Catapres Tab) 0.1 mg Q4H PRN ORAL For High Blood Pressure 12/03/19 19:15 03/01/20 19:14 Dextrose (Dextrose 50%) 25 ml Q30M PRN IV Hypoglycemia 12/03/19 18:45 03/01/20 19:14 Dextrose (Dextrose 50%) 50 ml Q30M PRN IV Hypoglycemia 12/03/19 18:45 03/01/20 19:14 Escitalopram Oxalate (Lexapro) 10 mg DAILY ORAL 12/04/19 09:00 01/02/20 08:59 12/12/19 08:05 Folic Acid (Folate) 2 mg DAILY NG 12/05/19 09:00 01/04/20 08:59 12/12/19 08:05 Insulin Aspart (NovoLOG) BEFORE MEALS AND HS SUBQ 12/03/19 21:00 03/01/20 20:59 12/12/19 16:36 Lansoprazole (Prevacid) 30 mg DAILY GT 12/10/19 09:00 01/09/20 08:59 12/12/19 08:07 Nitroglycerin (Ntg) 0.4 mg Q5M X 3 DOSES PRN SL Prn Chest Pain 12/03/19 18:45 01/01/20 19:14 Ondansetron HCl (Zofran) 4 mg Q6H PRN IVP Nausea & Vomiting 12/03/19 19:15 01/01/20 19:14 Polyethylene Glycol (Miralax) 17 gm BEDTIME ORAL 12/06/19 21:00 01/05/20 20:59 12/10/19 21:34 Promethazine HCl/ Codeine (Phenergan with Codeine) 5 ml Q4H PRN ORAL For Cough 12/03/19 19:15 01/01/20 19:14 Velma Lpoez M.D. Dec 12, 2019 16:58
[2019-12-12] MEDS: Vancomycin oral 125mg/2.5ml ORAL SCH ×2 (17:39→21:29)
--- NOTE | 2019-12-12 19:02 | Cardiology Progress Note ---
Assessment/Plan Assessment/Plan 1. 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 2. Altered mental status, probably secondary to above. 3. Renal insufficiency acute on chronic. 4. Urinary tract infection. 5. History of subdural hematoma post fall. 6. B12 deficiency. 7. Diabetes mellitus. 8. Anemia. 9. Iron deficiency. 10. 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 ct neg 11 c diff neuro recommended dapt urin cx + but blood cx neg , stool c diff getting tube feeding carotid less thn 50% stenosis tele sinus no afib or svt 12/11 ct of hip right neg for fx s/p alb bp seem ok watch renal fx c rimproved with hydration arterial dupelx left arm and left leg Subjective Cardiovascular: Denies: chest pain, lightheadedness, palpitations Respiratory: Denies: shortness of breath Gastrointestinal/Abdominal: Denies: abdominal pain Objective Last 24 Hour Vital Signs Date Time Temp Pulse Resp B/P (MAP) Pulse Ox O2 Delivery O2 Flow Rate FiO2 12/12/19 16:00 98.1 81 19 109/57 (74) 96 12/12/19 16:00 67 12/12/19 12:00 76 12/12/19 12:00 96.7 73 20 106/49 (68) 97 12/12/19 09:00 Room Air 12/12/19 08:00 97.9 66 19 101/98 (99) 95 12/12/19 08:00 65 12/12/19 04:00 97.7 73 18 102/45 (64) 97 12/12/19 04:00 74 12/12/19 00:00 96.8 87 18 107/64 (78) 100 12/12/19 00:00 74 12/11/19 20:00 100.0 71 18 128/57 (80) 93 12/11/19 20:00 71 General Appearance: no apparent distress, alert Neck: no JVD Cardiovascular: normal rate Respiratory/Chest: lungs clear Abdomen: normal bowel sounds, non tender, soft Extremities: no swelling, other - left foot adn arm cool to touch bu tseem to ahve cap refill ok i am not albe ot palapte pusle in the left foopt Intake and Output 12/11/19 12/12/19 19:00 07:00 Intake Total 305 ml Output Total 800 ml 600 ml Balance -495 ml -600 ml Intake Free Water 250 ml Tube Feeding 55 ml Output Urine Total 800 ml 600 ml # Voids 1 # Bowel Movements 4 Laboratory Tests Test 12/11/19 21:34 12/12/19 05:38 12/12/19 08:00 POC Whole Blood Glucose Pending 147 MG/DL (74-106) H White Blood Count 13.0 K/UL (4.8-10.8) H Red Blood Count 3.17 M/UL (4.70-6.10) L Hemoglobin 8.6 G/DL (14.2-18.0) L Hematocrit 27.3 % (42.0-52.0) L Mean Corpuscular Volume 86 FL (80-99) Mean Corpuscular Hemoglobin 27.2 PG (27.0-31.0) Mean Corpuscular Hemoglobin Concent 31.6 G/DL (32.0-36.0) L Red Cell Distribution Width 13.8 % (11.6-14.8) Platelet Count 374 K/UL (150-450) Mean Platelet Volume 5.1 FL (6.5-10.1) L Neutrophils (%) (Auto) % (45.0-75.0) Lymphocytes (%) (Auto) % (20.0-45.0) Monocytes (%) (Auto) % (1.0-10.0) Eosinophils (%) (Auto) % (0.0-3.0) Basophils (%) (Auto) % (0.0-2.0) Differential Total Cells Counted 100 Neutrophils % (Manual) 89 % (45-75) H Lymphocytes % (Manual) 6 % (20-45) L Monocytes % (Manual) 4 % (1-10) Eosinophils % (Manual) 1 % (0-3) Basophils % (Manual) 0 % (0-2) Band Neutrophils 0 % (0-8) Platelet Estimate Adequate Platelet Morphology Normal Hypochromasia 2+ Anisocytosis 1+ Sodium Level 146 MMOL/L (136-145) H Potassium Level 4.0 MMOL/L (3.5-5.1) Chloride Level 108 MMOL/L (98-107) H Carbon Dioxide Level 33 MMOL/L (21-32) H Anion Gap 5 mmol/L (5-15) Blood Urea Nitrogen 67 mg/dL (7-18) H Creatinine 1.2 MG/DL (0.55-1.30) Estimat Glomerular Filtration Rate 57.1 mL/min (>60) Glucose Level 122 MG/DL (74-106) H Calcium Level 8.9 MG/DL (8.5-10.1) Total Bilirubin 0.3 MG/DL (0.2-1.0) Aspartate Amino Transf (AST/SGOT) 28 U/L (15-37) Alanine Aminotransferase (ALT/SGPT) 34 U/L (12-78) Alkaline Phosphatase 69 U/L (46-116) Total Protein 5.9 G/DL (6.4-8.2) L Albumin 2.1 G/DL (3.4-5.0) L Globulin 3.8 g/dL Albumin/Globulin Ratio 0.6 (1.0-2.7) L Microbiology Date/Time Source Procedure Growth Status 12/11/19 14:00 Stool Clostridium difficile Toxin Assay - Final Complete Beka Saleh MD Dec 12, 2019 19:02
--- NOTE | 2019-12-12 19:48 | NUR ---
HAND-OFF: Report given to Gini CALLOWAY. Endorsed cold extremities and swollen right hand.
[2019-12-12 20:00] VITALS: BP 122/52
--- NOTE | 2019-12-12 21:21 | Internal Med Progress Note ---
Subjective Physician Name Darren Spencer Attending Physician Darren Spencer MD Current Medications Medications (Trade) Dose Ordered Sig/James Route PRN Reason Start Time Stop Time Status Last Admin Dose Admin Acetaminophen (Tylenol) 650 mg Q4H PRN ORAL fever 12/03/19 18:48 01/02/20 18:47 Apixaban (Eliquis) 2.5 mg BID ORAL 12/05/19 09:00 03/04/20 08:59 12/12/19 17:39 Barium Sulfate (Varibar Honey) 250 ml NOW PRN MC RAD 12/12/19 13:15 12/15/19 13:05 Barium Sulfate (Varibar [place]) 240 ml NOW PRN MC RAD 12/12/19 13:15 12/15/19 13:05 Barium Sulfate (Varibar Pudding) 230 ml NOW PRN MC RAD 12/12/19 13:15 12/15/19 13:05 Barium Sulfate (Varibar Thin Liquid powder) 148 gm NOW PRN MC RAD 12/12/19 13:15 12/15/19 13:05 Clonidine HCl (Catapres Tab) 0.1 mg Q4H PRN ORAL For High Blood Pressure 12/03/19 19:15 03/01/20 19:14 Dextrose (Dextrose 50%) 25 ml Q30M PRN IV Hypoglycemia 12/03/19 18:45 03/01/20 19:14 Dextrose (Dextrose 50%) 50 ml Q30M PRN IV Hypoglycemia 12/03/19 18:45 03/01/20 19:14 Escitalopram Oxalate (Lexapro) 10 mg DAILY ORAL 12/04/19 09:00 01/02/20 08:59 12/12/19 08:05 Folic Acid (Folate) 2 mg DAILY NG 12/05/19 09:00 01/04/20 08:59 12/12/19 08:05 Insulin Aspart (NovoLOG) BEFORE MEALS AND HS SUBQ 12/03/19 21:00 03/01/20 20:59 12/12/19 16:36 Lansoprazole (Prevacid) 30 mg DAILY GT 12/10/19 09:00 01/09/20 08:59 12/12/19 08:07 Nitroglycerin (Ntg) 0.4 mg Q5M X 3 DOSES PRN SL Prn Chest Pain 12/03/19 18:45 01/01/20 19:14 Ondansetron HCl (Zofran) 4 mg Q6H PRN IVP Nausea & Vomiting 12/03/19 19:15 01/01/20 19:14 Polyethylene Glycol (Miralax) 17 gm BEDTIME ORAL 12/06/19 21:00 01/05/20 20:59 12/10/19 21:34 Promethazine HCl/ Codeine (Phenergan with Codeine) 5 ml Q4H PRN ORAL For Cough 12/03/19 19:15 01/01/20 19:14 Vancomycin HCl (Firvanq) 125 mg FOUR TIMES A DAY ORAL 12/12/19 18:00 12/19/19 17:59 12/12/19 17:39 Allergies: Coded Allergies: ATENOLOL (Verified Allergy, Unknown, 05/23/16) LOSARTAN (Verified Allergy, Unknown, 05/23/16) SIMVASTATIN (Verified Allergy, Unknown, 05/23/16) Uncoded Allergies: AMLIODIPINE (Allergy, Unknown, 05/23/16) PENICILLIN (Allergy, Unknown, 12/03/19) Tolerated Ceftriaxone on 12/02/19 Subjective Awake, responsive with open eyes, unable to follow command, WBC: 13.0. Stool for C. difficile positive.. Objective Last Vital Signs Date Time Temp Pulse Resp B/P (MAP) Pulse Ox O2 Delivery O2 Flow Rate FiO2 12/12/19 16:00 98.1 81 19 109/57 (74) 96 12/12/19 09:00 Room Air 12/11/19 07:00 21 12/09/19 13:40 3 Laboratory Tests Test 12/11/19 21:34 12/12/19 05:38 12/12/19 08:00 POC Whole Blood Glucose Pending 147 MG/DL (74-106) H White Blood Count 13.0 K/UL (4.8-10.8) H Red Blood Count 3.17 M/UL (4.70-6.10) L Hemoglobin 8.6 G/DL (14.2-18.0) L Hematocrit 27.3 % (42.0-52.0) L Mean Corpuscular Volume 86 FL (80-99) Mean Corpuscular Hemoglobin 27.2 PG (27.0-31.0) Mean Corpuscular Hemoglobin Concent 31.6 G/DL (32.0-36.0) L Red Cell Distribution Width 13.8 % (11.6-14.8) Platelet Count 374 K/UL (150-450) Mean Platelet Volume 5.1 FL (6.5-10.1) L Neutrophils (%) (Auto) % (45.0-75.0) Lymphocytes (%) (Auto) % (20.0-45.0) Monocytes (%) (Auto) % (1.0-10.0) Eosinophils (%) (Auto) % (0.0-3.0) Basophils (%) (Auto) % (0.0-2.0) Differential Total Cells Counted 100 Neutrophils % (Manual) 89 % (45-75) H Lymphocytes % (Manual) 6 % (20-45) L Monocytes % (Manual) 4 % (1-10) Eosinophils % (Manual) 1 % (0-3) Basophils % (Manual) 0 % (0-2) Band Neutrophils 0 % (0-8) Platelet Estimate Adequate Platelet Morphology Normal Hypochromasia 2+ Anisocytosis 1+ Sodium Level 146 MMOL/L (136-145) H Potassium Level 4.0 MMOL/L (3.5-5.1) Chloride Level 108 MMOL/L (98-107) H Carbon Dioxide Level 33 MMOL/L (21-32) H Anion Gap 5 mmol/L (5-15) Blood Urea Nitrogen 67 mg/dL (7-18) H Creatinine 1.2 MG/DL (0.55-1.30) Estimat Glomerular Filtration Rate 57.1 mL/min (>60) Glucose Level 122 MG/DL (74-106) H Calcium Level 8.9 MG/DL (8.5-10.1) Total Bilirubin 0.3 MG/DL (0.2-1.0) Aspartate Amino Transf (AST/SGOT) 28 U/L (15-37) Alanine Aminotransferase (ALT/SGPT) 34 U/L (12-78) Alkaline Phosphatase 69 U/L (46-116) Total Protein 5.9 G/DL (6.4-8.2) L Albumin 2.1 G/DL (3.4-5.0) L Globulin 3.8 g/dL Albumin/Globulin Ratio 0.6 (1.0-2.7) L Microbiology Date/Time Source Procedure Growth Status 12/11/19 14:00 Stool Clostridium difficile Toxin Assay - Final Complete Intake and Output 12/11/19 12/12/19 19:00 07:00 Intake Total 305 ml Output Total 800 ml 600 ml Balance -495 ml -600 ml Intake Free Water 250 ml Tube Feeding 55 ml Output Urine Total 800 ml 600 ml # Voids 1 # Bowel Movements 4 Objective GENERAL: open eyes, responsive, cachectic, chronic ill appearing. HEENT: Pupils equal and reactive to light, anicteric,. NECK: Supple. No JVD. LUNGS: Fair bilateral air entry. No wheezing, rhonchi. Decreased air in the bases. HEART: S1, S2. Distant heart sounds. No murmur or gallop. ABDOMEN: Soft, nondistended, nontender. No rebound tenderness. No fluid shift , PEG site intact. : Vela cath. EXTREMITIES: No cyanosis, clubbing, or edema. Muscle atrophy to bilateral lower extremities noted. NEUROLOGIC: Cranial nerves II to XII grossly intact, motor right side is weaker than left side. RECTAL/GENITOURINARY: Refused and deferred PSYCHIATRIC: Mood and affect unable to obtain secondary to the patient's status. Assessment/Plan Assessment/Plan ASSESSMENT: 1. Acute encephalopathy, most likely secondary to toxic metabolic encephalopathy as well as acute CVA. 2. Acute ESBL Klebsiella urinary tract infection. 3. Diabetes type 2. 4. Acute kidney injury, on chronic renal insufficiency. 5. Multifocal infarction, confirmed on MRI. 6. Hypertension. 7. Dyslipidemia. 8. Colon cancer, status post resection. 9. Alzheimer dementia. 10. History of fall with subdural hematoma, resolved. 11. Severe protein-calorie malnutrition. 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 12. C. difficile colitis. 13. Dysphagia status post (12/09/19) EGD/PEG placement PLAN: In telemetry. Follow up with laboratory and culture. Abx: Vanco PO ID consultation, Dr. Lopez, pulmonary consultation, Dr. Vera, Cardiology consultation with Dr. Beka Saleh, Nephrology consultation with Dr. Vin Otero. Code status: Full code. DVT prophylaxis: Eliquis. Tolerated Tube feeding @ 55 cc/hr. DC planning to SNF. Darren Spencer MD Dec 12, 2019 21:21
[2019-12-12] MEDS: Miralax 17gm pkt ORAL SCH (21:29)
[2019-12-13] VITALS: BP 150/68
[2019-12-13 04:00] VITALS: BP 116/56
[2019-12-13] MEDS: NovoLOG Insulin Flexpen SUBQ SCH ×4 (06:57→22:04)
--- NOTE | 2019-12-13 07:35 | NUR ---
NURSE NOTES: Received pt A/A/Ox2, mumbles. resting in bed calm and comfortable. Pt is on room air and breathing unlabored. on gtube feeding Glucerna 1.2 55ml/hr. No gastric residual noted. tolerating feeding well. hamlin catheter is inplaced patent and draining well to gravity. PIV on LHand 22G SL patent dry and intact. On p200 mattress for skin integrity. Bed locked and in lowest position with call light within reach. brakes and locked @ all times. Will continue to monitor.
--- NOTE | 2019-12-13 07:45 | NUR ---
NURSE HAND-OFF REPORT: Important Events on Shift: Patient Status: full code, stable condition Diet: glucerna 1.5, 55mL/h Pending Orders: Pending Results/Labs: Pending MD notification: Latest Vital Signs: Temperature 97.5 , Pulse 70 , B/P 116 /56 , Respiratory Rate 20 , O2 SAT 98 , Room Air, O2 Flow Rate 3 . Vital Sign Comment: EKG Rhythm: SR w 1st-degree BBB Rhythm change?: N Notified?: Ras gonzáles MD Response: Message left await call Latest Zhang Fall Score: 70 Fall Risk: High Risk Safety Measures: Call light Within Reach, Bed Alarm Zone 2, Side Rails Side Rails x3, Bed position Low and Locked. Fall Precautions: Yellow Socks Yellow Gown Patient Fall Education Report given to ELLI Stewart.
[2019-12-13 08:00] VITALS: BP 131/77
[2019-12-13] MEDS: Eliquis 2.5mg tablet ORAL SCH ×2 (08:42→17:04)
[2019-12-13] MEDS: Vancomycin oral 125mg/2.5ml ORAL SCH ×4 (08:42→22:01)
--- NOTE | 2019-12-13 09:06 | Pulmonology Progress Note ---
Subjective ROS Limited/Unobtainable: Yes Constitutional: Reports: no symptoms HEENT: Repors: no symptoms Allergies: Coded Allergies: ATENOLOL (Verified Allergy, Unknown, 05/23/16) LOSARTAN (Verified Allergy, Unknown, 05/23/16) SIMVASTATIN (Verified Allergy, Unknown, 05/23/16) Uncoded Allergies: AMLIODIPINE (Allergy, Unknown, 05/23/16) PENICILLIN (Allergy, Unknown, 12/03/19) Tolerated Ceftriaxone on 12/02/19 Objective Last 24 Hour Vital Signs Date Time Temp Pulse Resp B/P (MAP) Pulse Ox O2 Delivery O2 Flow Rate FiO2 12/13/19 08:00 97.1 70 18 131/77 (95) 99 12/13/19 04:00 70 12/13/19 04:00 97.5 70 20 116/56 (76) 98 12/13/19 00:00 98.7 85 20 150/68 (95) 96 12/13/19 00:00 67 12/12/19 20:00 70 12/12/19 20:00 97.5 75 20 122/52 (75) 97 12/12/19 16:00 98.1 81 19 109/57 (74) 96 12/12/19 16:00 67 12/12/19 12:00 76 12/12/19 12:00 96.7 73 20 106/49 (68) 97 Intake and Output 12/12/19 12/13/19 19:00 07:00 Intake Total 845 ml Output Total 600 ml Balance 245 ml Intake Free Water 250 ml IV Total 200 ml Tube Feeding 55 ml Blood Product 100 ml Other 240 ml Output Urine Total 600 ml # Voids 2 # Bowel Movements 2 General Appearance: cachetic HEENT: normocephalic, atraumatic Respiratory: chest wall non-tender, lungs clear Cardiovascular: normal peripheral pulses Abdomen: normal bowel sounds, soft, non tender Extremities: no cyanosis Skin: no ulcers Neurologic: no motor/sensory deficits Lymphatic: no neck adenopathy Microbiology Date/Time Source Procedure Growth Status 12/11/19 14:00 Stool Clostridium difficile Toxin Assay - Final Complete Laboratory Tests 12/12/19 21:32: POC Whole Blood Glucose 154H 12/13/19 06:49: POC Whole Blood Glucose 162H Current Medications Medications (Trade) Dose Ordered Sig/James Route PRN Reason Start Time Stop Time Status Last Admin Dose Admin Acetaminophen (Tylenol) 650 mg Q4H PRN ORAL fever 12/03/19 18:48 01/02/20 18:47 Apixaban (Eliquis) 2.5 mg BID ORAL 12/05/19 09:00 03/04/20 08:59 12/13/19 08:42 Barium Sulfate (Varibar Honey) 250 ml NOW PRN RAD 12/12/19 13:15 12/15/19 13:05 Barium Sulfate (Varibar [place]) 240 ml NOW PRN RAD 12/12/19 13:15 12/15/19 13:05 Barium Sulfate (Varibar Pudding) 230 ml NOW PRN RAD 12/12/19 13:15 12/15/19 13:05 Barium Sulfate (Varibar Thin Liquid powder) 148 gm NOW PRN RAD 12/12/19 13:15 12/15/19 13:05 Clonidine HCl (Catapres Tab) 0.1 mg Q4H PRN ORAL For High Blood Pressure 12/03/19 19:15 03/01/20 19:14 Dextrose (Dextrose 50%) 25 ml Q30M PRN IV Hypoglycemia 12/03/19 18:45 03/01/20 19:14 Dextrose (Dextrose 50%) 50 ml Q30M PRN IV Hypoglycemia 12/03/19 18:45 03/01/20 19:14 Escitalopram Oxalate (Lexapro) 10 mg DAILY ORAL 12/04/19 09:00 01/02/20 08:59 12/13/19 08:42 Folic Acid (Folate) 2 mg DAILY NG 12/05/19 09:00 01/04/20 08:59 12/13/19 08:42 Insulin Aspart (NovoLOG) BEFORE MEALS AND HS SUBQ 12/03/19 21:00 03/01/20 20:59 12/13/19 06:57 Lansoprazole (Prevacid) 30 mg DAILY GT 12/10/19 09:00 01/09/20 08:59 12/13/19 08:42 Nitroglycerin (Ntg) 0.4 mg Q5M X 3 DOSES PRN SL Prn Chest Pain 12/03/19 18:45 01/01/20 19:14 Ondansetron HCl (Zofran) 4 mg Q6H PRN IVP Nausea & Vomiting 12/03/19 19:15 01/01/20 19:14 Polyethylene Glycol (Miralax) 17 gm BEDTIME ORAL 12/06/19 21:00 01/05/20 20:59 12/12/19 21:29 Promethazine HCl/ Codeine (Phenergan with Codeine) 5 ml Q4H PRN ORAL For Cough 12/03/19 19:15 01/01/20 19:14 Vancomycin HCl (Firvanq) 125 mg FOUR TIMES A DAY ORAL 12/12/19 18:00 12/19/19 17:59 12/13/19 08:42 Assessment/Plan Problems: (1) Altered level of consciousness (2) UTI (urinary tract infection) (3) Severe protein-calorie malnutrition (4) History of diabetes mellitus (5) History of hypertension (6) Alzheimer's dementia (7) Unilateral weakness (8) Subdural hematoma (9) Colon cancer Assessment/Plan no [place] looks hs usual chronically ill self Urine has GNB, MDR Klebsiella Abx as per ID Meropenem and Vancomycin f/u electrolytes swallow study reviewed. swallow evaluation pending Neurology note appreciated Cherelle Vera MD Dec 13, 2019 09:06
--- NOTE | 2019-12-13 09:09 | Diagnostic Imaging Report ---
EXAM: US Duplex Left Upper Extremity Arteries CLINICAL HISTORY: PAIN TECHNIQUE: Real-time duplex ultrasound scan of the left upper extremity arteries integrating B-mode two-dimensional vascular structure, Doppler spectral analysis and color flow Doppler imaging. COMPARISON: No relevant prior studies available. FINDINGS: Left common carotid artery: No occlusion or significant stenosis on color flow and spectral Doppler imaging. Normal waveform. Left subclavian artery: No occlusion or significant stenosis on color flow and spectral Doppler imaging. Normal waveform. Left axillary artery: No occlusion or significant stenosis on color flow and spectral Doppler imaging. Normal waveform. Left brachial artery: No occlusion or significant stenosis on color flow and spectral Doppler imaging. Normal waveform. Left radial artery: No occlusion or significant stenosis on color flow and spectral Doppler imaging. Normal waveform. Left ulnar artery: No occlusion or significant stenosis on color flow and spectral Doppler imaging. Normal waveform. Soft tissues: Unremarkable. IMPRESSION: No arterial occlusion. Normal waveforms.
--- NOTE | 2019-12-13 09:19 | Diagnostic Imaging Report ---
EXAM: US Duplex Left Lower Extremity Arteries CLINICAL HISTORY: PAIN TECHNIQUE: Real-time duplex ultrasound scan of the left lower extremity arteries integrating B-mode two-dimensional vascular structure, Doppler spectral analysis and color flow Doppler imaging. COMPARISON: No relevant prior studies available. FINDINGS: No occlusion or significant stenosis on color flow and spectral Doppler imaging. Normal waveform. No occlusion or significant stenosis on color flow and spectral Doppler imaging. Normal waveform. Atherosclerotic changes of the left popliteal artery without hemodynamically significant stenosis. Associated, atherosclerotic changes with blunted wave form of the left anterior tibial artery. This is likely secondary to upstream stenosis of the popliteal artery. Poor visualization of the left dorsalis pedis artery. IMPRESSION: Atherosclerotic changes of the left popliteal artery without hemodynamically significant stenosis. Associated, atherosclerotic changes with blunted wave form of the left anterior tibial artery. This is likely secondary to upstream stenosis of the popliteal artery. Poor visualization of the left dorsalis pedis artery.
--- NOTE | 2019-12-13 09:32 | NUR ---
RD ASSESSMENT & RECOMMENDATIONS SEE CARE ACTIVITY FOR COMPLETE ASSESSMENT DAILY ESTIMATED NEEDS: Needs based on Underweight, wasting, wound 40kg 30-35 kcals/kg 5412-9414 total kcals 1.25-2 g protein/kg 50-80 g total protein 25-30ml/kcal mL/kg 1390-4459 total fluid mLs NUTRITION DIAGNOSIS: Increased kcal and pro needs r/t underweight status as evidenced by low BMI, moderate to severe generalized wasting,admitted w/ multiple wounds, including DTI x 5, non-blanching erythema x2. CURRENT TF:Glucerna 1.2 @55ml/hr x24 hrs- exceeds 113% of est kcal needs PO DIET RECOMMENDATIONS: If safe for oral diet -> Liberalized Regular diet/ texture per LAW INSTRUCTOR ENTERAL NUTRITION RECOMMENDATIONS: Glucerna 1.2 @ 45ml/hr x24 hrs to provide 1080ml, 1296 kcal, 65g pro, 869ml free h2O - LOWER goal rate to 45ml/hr x 24 hrs not to exceed kcal needs meets 100% est kcal/prot needs - H20 flush of 110mL q 8 hrs - HOB over 30 degrees ADDITIONAL RECOMMENDATIONS: 1) Calibrated bed scale wts daily 2) Wound healing: add Vit C 500mg QD + Harsha BID 3) Monitor lytes w/ TF, replete as needed 4) Monitor for readiness for oral diet 5) Monitor BGs, elev BGs >150, rec decreased TF goal rate as above Monitor need for additional hypoglycemics
--- NOTE | 2019-12-13 10:30 | NUR ---
NURSE NOTES: wound care treatment and photo taken. gtube drsg changed. no leakage and drainage noted. will cont to monitor.
--- NOTE | 2019-12-13 11:41 | NUR ---
*-*DISCHARGE PLANNING*-* PATIENT HAS BEEN REFERRED BACK TO: [facility] P: [phone]
[2019-12-13 11:53] VITALS: BP 110/52
--- NOTE | 2019-12-13 12:13 | Surgery Progress Note ---
Surgery Progress Note Subjective Additional Comments arterial duplex upper extremity and lower noted wbc 13k exam stable Objective Last 24 Hour Vital Signs Date Time Temp Pulse Resp B/P (MAP) Pulse Ox O2 Delivery O2 Flow Rate FiO2 12/13/19 11:53 97.1 73 21 110/52 (71) 97 12/13/19 10:50 Room Air 12/13/19 08:00 97.1 70 18 131/77 (95) 99 12/13/19 08:00 67 12/13/19 04:00 70 12/13/19 04:00 97.5 70 20 116/56 (76) 98 12/13/19 00:00 98.7 85 20 150/68 (95) 96 12/13/19 00:00 67 12/12/19 20:00 70 12/12/19 20:00 97.5 75 20 122/52 (75) 97 12/12/19 16:00 98.1 81 19 109/57 (74) 96 12/12/19 16:00 67 I&O Intake and Output 12/12/19 12/13/19 19:00 07:00 Intake Total 845 ml Output Total 600 ml Balance 245 ml Intake Free Water 250 ml IV Total 200 ml Tube Feeding 55 ml Blood Product 100 ml Other 240 ml Output Urine Total 600 ml # Voids 2 # Bowel Movements 2 Dressing: other Wound: other Cardiovascular: RSR Respiratory: decreased breath sounds Abdomen: soft, non-tender, present bowel sounds Extremities: no tenderness, no cyanosis, pulses, other Laboratory Tests Test 12/12/19 21:32 12/13/19 06:49 12/13/19 11:46 POC Whole Blood Glucose 154 MG/DL (74-106) H 162 MG/DL (74-106) H 184 MG/DL (74-106) H Plan Problems: (1) History of diabetes mellitus (2) History of hypertension (3) Alzheimer's dementia (4) UTI (urinary tract infection) (5) Unilateral weakness (6) Acute dehydration (7) Altered level of consciousness (8) Subdural hematoma (9) Colon cancer Assessment & Plan: Exam is limited due to patient being contracted. No evidence of acute fracture. No dislocation. The joint spaces are preserved. There is some edema of the right buttock region subcutaneous fat, but no evidence of soft tissue contusion demonstrated. No evidence of pelvic fracture. The rectum is distended by dense stool. There is a Vela catheter within the bladder. A small amount of urine within the bladder despite Vela catheter. There are colonic diverticula. Impression: No evidence of acute bony trauma or significant soft tissue trauma Rectal fecal impaction Colonic diverticulosis (10) Severe protein-calorie malnutrition Assessment & Plan: planned PEG s/p peg tf as tolerated DAILY ESTIMATED NEEDS: Needs based on Underweight, wasting, wound 40kg 30-35 kcals/kg 5663-2871 total kcals 1.25-2 g protein/kg 50-80 g total protein 25-30ml/kcal mL/kg 5802-3839 total fluid mLs NUTRITION DIAGNOSIS: Increased kcal and pro needs r/t underweight status as evidenced by low BMI, moderate to severe generalized wasting, w/ multiple areas of skin compromise, DTI x4. CURRENT DIET: NPO ENTERAL NUTRITION RECOMMENDATIONS: Glucerna 1.2 goal of 45ml/hr x24 hrs to provide 1080ml, 1296 kcal, 65g pro, 869ml free h2O - Obtain GI access, initiate Glucerna 1.2 @25ml/hr for 6 hrs - Advance as tolerated 10ml/hr q4-6 hrs to goal - Flush per MD/ HOB over 30 degrees ------ ADDITIONAL RECOMMENDATIONS: 1) W/ poor po intake, add Ensure TID -> not appropriate for oral po W/ elevated BG rec Glucerna TID-> not appropriate for oral po 2) Add FRANCISCA BID -> f/up w WC eval 3) TOBACCO CHECKOUT CLERK eval for texture, need for non oral feeds-> S/p TOBACCO CHECKOUT CLERK eval, not appropriate for oral diet, TF recs as above 4) Calibrated bed scale wts daily 5) Monitor lytes w/ TF, replete as needed ACUTE: ALOC x2 days with right side paralysis, CVA, intracranial bleed, seizure , postictal state, major electrolyte abnormality, severe sepsis, Acute dehydration. H/O: subdural hematoma, colon cancer status post treatment, HTN, Syncope and collapse, anemia, DM2, Alzheimer Dementia, CKD, severe protein-calorie malnutrition, hyperlipidemia, vitamin B12 deficiency, muscle wasting, lack of coordination. POLST: Not in chart. RELEVANT MEDS: Albuterol (SOB); Zofran (Nausea); Restoril (insomnia). VITALS ON 2L NASAL CANNULA: HR: 67; RR: 19; SP02 100% PLOF: Pt consumed mechanical soft with thin liquids [facility] at [facility]. Pt seen at bedside appears frail and weak. Pt able to open eye to verbal communication. Pt noted with copious, thick phlegm and debris in BOT and throughout oral cavity. Pt provided oral moisturizer and thorough oral care with Yankauer suction, removing thick phlegm, mildly improved verbal communication s/p oral care. Pt able to nod head yes when asked if Pt gets thickened liquids. 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 Pt given PO trial of nectar thick liquid teaspoons. Oral phase characterized by functional labial seal, poor bolus control resulting in suspected premature posterior spillage and subsequent suspected silent aspiration given laryngeal elevation was not well appreciated upon palpation despite verbal and tactile cues to Pt's larynx to initiate swallow; no swallow initiated. Pt did not cough or attempt to clear trial. Pt was able to eventually initiate a swallow with a 20 second delay, laryngeal elevation incomplete in feel upon palpation. Pt is a high risk for silent aspiration, would benefit from MBSS in future ( will monitor Pt's candidacy, not appropriate to participate in MBSS at this time ). RECOMMENDATIONS: 1. NPO with nutrition, hydration, and meds via NGT (12 [place]ic). 2. Please provide oral care BID 3. Dysphagia therapy 3-5x per week x1 week. 4. Will monitor Pts appropriateness to participate in MBSS. 5. Pt would benefit from Speech, Language, and Cognitive communication evaluation given s/p lacunar infarcts. (11) Decubitus skin ulcer Assessment & Plan: Pt presented on admission with multiple Pressure injuries. Reabsorbing DTPI L Elbow. Base of Pressure Injury is dry and black centrally with maroon borders(L)2cm x (W)1.5cm. DTPI Sacrum (L)9.5cm x (W)11.5cm. Base of Pressure Injury is indurated purpuric with surrounding maroon borders. Pt verbalized tenderness when affected site minimally palpated. DTPI R Ischium(L)8cm x (W)9.5cm. Base of pressure injury is purpuric with maroon borders. Tender when minimally palpated. DTPI L trochanter(L)4cm x (W)3.2cm. Base of injury is purpuric with surrounding Maroon borders. Tender when minimally palpated. DTPI L Ischium (L)7cm x (W)5.4cm.Base of Injury is black with marginal erythema . Tender when minimally palpated. R Heel is boggy with non-blanchable erythema (L)3cm x (W)3.5cm. L Heel is boggy with non-Blanchable erythema(L)5cm x (W)3.5cm. L 1st metatarsal erythematous,tip is fluctuant. Pt complained tender when minimally palpated. No elevation in skin temp noted. Dry scab noted to dorsal L 2nd metatarsal. Tx.Plan: Apply Moisture Barrier Paste to Sacrum and bilat ischial tuberosities. Cover each site with Optifoam drsgs. Change every 3 days and prn. Apply Cavilon Skin Barrier to R and L trochanter. Cover each site with Optifoam drsgs. Change every 7 days and prn Apply Cavilon Skin Barrier to L and R elbows. Cover each site with Optifoam drsgs. Change every 7 days and prn. Apply Cavilon Skin Barrier to both heels and Malleoli. Cover each site with Optifoam drsgs. Change every 7 days and prn. Apply Cavilon Skin Barrier to bony prominences and cover with Optifoam drsgs as needed. Reposition at least every 2hours or as tolerated. Off-load heels with pillow. APM/KARTHIK Mattress overlay. (12) Anemia (13) FRANKY (acute kidney injury) (14) Stroke Assessment & Plan: No occlusion or significant stenosis on color flow and spectral Doppler imaging. Normal waveform. No occlusion or significant stenosis on color flow and spectral Doppler imaging. Normal waveform. Atherosclerotic changes of the left popliteal artery without hemodynamically significant stenosis. Associated, atherosclerotic changes with blunted wave form of the left anterior tibial artery. This is likely secondary to upstream stenosis of the popliteal artery. Poor visualization of the left dorsalis pedis artery. IMPRESSION: Atherosclerotic changes of the left popliteal artery without hemodynamically significant stenosis. Associated, atherosclerotic changes with blunted wave form of the left anterior tibial artery. This is likely secondary to upstream stenosis of the popliteal artery. Poor visualization of the left dorsalis pedis artery. Left common carotid artery: No occlusion or significant stenosis on color flow and spectral Doppler imaging. Normal waveform. Left subclavian artery: No occlusion or significant stenosis on color flow and spectral Doppler imaging. Normal waveform. Left axillary artery: No occlusion or significant stenosis on color flow and spectral Doppler imaging. Normal waveform. Left brachial artery: No occlusion or significant stenosis on color flow and spectral Doppler imaging. Normal waveform. Left radial artery: No occlusion or significant stenosis on color flow and spectral Doppler imaging. Normal waveform. Left ulnar artery: No occlusion or significant stenosis on color flow and spectral Doppler imaging. Normal waveform. Soft tissues: Unremarkable. IMPRESSION: No arterial occlusion. Normal waveforms. Patel Merrill Dec 13, 2019 12:12
--- NOTE | 2019-12-13 12:27 | NUR ---
*-*DISCHARGE PLANNING*-* PATIENT HAS BEEN ACCEPTED BACK TO: [facility] P: [phone] FOR NURSE TO NURSE REPORT ROOM# 23.A SKILLED ~~~~~~~~~~~~~NEED DISCHARGE ORDER~~~~~~~~~~~~~~~~~~
--- NOTE | 2019-12-13 14:37 | Internal Med Progress Note ---
Subjective Date of Service: Dec 13, 2019 Physician Name Darren Pineda Attending Physician Darren Spencer MD Current Medications Medications (Trade) Dose Ordered Sig/James Route PRN Reason Start Time Stop Time Status Last Admin Dose Admin Acetaminophen (Tylenol) 650 mg Q4H PRN ORAL fever 12/03/19 18:48 01/02/20 18:47 Apixaban (Eliquis) 2.5 mg BID ORAL 12/05/19 09:00 03/04/20 08:59 12/13/19 08:42 Barium Sulfate (Varibar Honey) 250 ml NOW PRN MC RAD 12/12/19 13:15 12/15/19 13:05 Barium Sulfate (Varibar [place]) 240 ml NOW PRN MC RAD 12/12/19 13:15 12/15/19 13:05 Barium Sulfate (Varibar Pudding) 230 ml NOW PRN RAD 12/12/19 13:15 12/15/19 13:05 Barium Sulfate (Varibar Thin Liquid powder) 148 gm NOW PRN RAD 12/12/19 13:15 12/15/19 13:05 Clonidine HCl (Catapres Tab) 0.1 mg Q4H PRN ORAL For High Blood Pressure 12/03/19 19:15 03/01/20 19:14 Dextrose (Dextrose 50%) 25 ml Q30M PRN IV Hypoglycemia 12/03/19 18:45 03/01/20 19:14 Dextrose (Dextrose 50%) 50 ml Q30M PRN IV Hypoglycemia 12/03/19 18:45 03/01/20 19:14 Escitalopram Oxalate (Lexapro) 10 mg DAILY ORAL 12/04/19 09:00 01/02/20 08:59 12/13/19 08:42 Folic Acid (Folate) 2 mg DAILY NG 12/05/19 09:00 01/04/20 08:59 12/13/19 08:42 Insulin Aspart (NovoLOG) BEFORE MEALS AND HS SUBQ 12/03/19 21:00 03/01/20 20:59 12/13/19 12:06 Lansoprazole (Prevacid) 30 mg DAILY GT 12/10/19 09:00 01/09/20 08:59 12/13/19 08:42 Nitroglycerin (Ntg) 0.4 mg Q5M X 3 DOSES PRN SL Prn Chest Pain 12/03/19 18:45 01/01/20 19:14 Ondansetron HCl (Zofran) 4 mg Q6H PRN IVP Nausea & Vomiting 12/03/19 19:15 01/01/20 19:14 Polyethylene Glycol (Miralax) 17 gm BEDTIME ORAL 12/06/19 21:00 01/05/20 20:59 12/12/19 21:29 Promethazine HCl/ Codeine (Phenergan with Codeine) 5 ml Q4H PRN ORAL For Cough 12/03/19 19:15 01/01/20 19:14 Vancomycin HCl (Firvanq) 125 mg FOUR TIMES A DAY ORAL 12/12/19 18:00 12/19/19 17:59 12/13/19 12:08 Allergies: Coded Allergies: ATENOLOL (Verified Allergy, Unknown, 05/23/16) LOSARTAN (Verified Allergy, Unknown, 05/23/16) SIMVASTATIN (Verified Allergy, Unknown, 05/23/16) Uncoded Allergies: AMLIODIPINE (Allergy, Unknown, 05/23/16) PENICILLIN (Allergy, Unknown, 12/03/19) Tolerated Ceftriaxone on 12/02/19 ROS Limited/Unobtainable: Yes Subjective 89 YO M admitted with atlered mental status. Now UTI. Cover for Int Med-DR Spencer. S/P colonoscopy/EGD 12/09/19 Objective Last Vital Signs Date Time Temp Pulse Resp B/P (MAP) Pulse Ox O2 Delivery O2 Flow Rate FiO2 12/13/19 12:00 75 12/13/19 11:53 97.1 21 110/52 (71) 97 12/13/19 10:50 Room Air 12/11/19 07:00 21 12/09/19 13:40 3 Laboratory Tests Test 12/12/19 21:32 12/13/19 06:49 12/13/19 11:46 POC Whole Blood Glucose 154 MG/DL (74-106) H 162 MG/DL (74-106) H 184 MG/DL (74-106) H Microbiology Date/Time Source Procedure Growth Status 12/11/19 14:00 Stool Clostridium difficile Toxin Assay - Final Complete Intake and Output 12/12/19 12/13/19 19:00 07:00 Intake Total 900 ml Output Total 600 ml Balance 300 ml Intake Free Water 250 ml IV Total 200 ml Tube Feeding 110 ml Blood Product 100 ml Other 240 ml Output Urine Total 600 ml # Voids 2 # Bowel Movements 2 Objective Objective GENERAL: open eyes more responsive, cachectic, chronic ill appearing. HEENT: Pupils equal and reactive to light, anicteric, NG tube. NECK: Supple. No JVD. LUNGS: Fair bilateral air entry. No wheezing, rhonchi. Decreased air in the bases. HEART: S1, S2. Distant heart sounds. No murmur or gallop. ABDOMEN: Soft, nondistended, nontender. No rebound tenderness. No fluid shift. : Vela cath. EXTREMITIES: No cyanosis, clubbing, or edema. Muscle atrophy to bilateral lower extremities noted. NEUROLOGIC: Cranial nerves II to XII grossly intact, motor right side is weaker than left side. RECTAL/GENITOURINARY: Refused and deferred PSYCHIATRIC: Mood and affect unable to obtain secondary to the patient's status. Assessment/Plan Assessment/Plan Assessment/Plan Assessment/Plan ASSESSMENT: 1. Acute encephalopathy, most likely secondary to toxic metabolic encephalopathy as well as acute CVA. 2. Acute ESBL Klebsiella urinary tract infection. 3. Diabetes type 2. 4. Acute kidney injury, on chronic renal insufficiency. 5. Multifocal infarction, confirmed on MRI. 6. Hypertension. 7. Dyslipidemia. 8. Colon cancer, status post resection. 9. Alzheimer dementia. 10. History of fall with subdural hematoma, resolved. 11. Severe protein-calorie malnutrition. 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 13. C. Diff colitis PLAN: In telemetry. Follow up with laboratory and culture. Abx: S/P Meropenem. ID consultation, Dr. Lopez, pulmonary consultation, Dr. Vera, Cardiology consultation with Dr. Beka Saleh, Nephrology consultation with Dr. Vin Otero. Code status: Full code. DVT prophylaxis: Eliquis. Tolerated Tube feeding @ 50 cc/hr. S/P endoscopy/colonoscopy 12/09/19 Darren Pineda MD Dec 13, 2019 14:37
--- NOTE | 2019-12-13 14:39 | Internal Med Progress Note ---
Subjective Physician Name MiriamDarren Attending Physician Darren Spencer MD Current Medications Medications (Trade) Dose Ordered Sig/James Route PRN Reason Start Time Stop Time Status Last Admin Dose Admin Acetaminophen (Tylenol) 650 mg Q4H PRN ORAL fever 12/03/19 18:48 01/02/20 18:47 Apixaban (Eliquis) 2.5 mg BID ORAL 12/05/19 09:00 03/04/20 08:59 12/13/19 08:42 Barium Sulfate (Varibar Honey) 250 ml NOW PRN MC RAD 12/12/19 13:15 12/15/19 13:05 Barium Sulfate (Varibar [place]) 240 ml NOW PRN MC RAD 12/12/19 13:15 12/15/19 13:05 Barium Sulfate (Varibar Pud[place]) 230 ml NOW PRN MC RAD 12/12/19 13:15 12/15/19 13:05 Barium Sulfate (Varibar Thin Liquid powder) 148 gm NOW PRN MC RAD 12/12/19 13:15 12/15/19 13:05 Clonidine HCl (Catapres Tab) 0.1 mg Q4H PRN ORAL For High Blood Pressure 12/03/19 19:15 03/01/20 19:14 Dextrose (Dextrose 50%) 25 ml Q30M PRN IV Hypoglycemia 12/03/19 18:45 03/01/20 19:14 Dextrose (Dextrose 50%) 50 ml Q30M PRN IV Hypoglycemia 12/03/19 18:45 03/01/20 19:14 Escitalopram Oxalate (Lexapro) 10 mg DAILY ORAL 12/04/19 09:00 01/02/20 08:59 12/13/19 08:42 Folic Acid (Folate) 2 mg DAILY NG 12/05/19 09:00 01/04/20 08:59 12/13/19 08:42 Insulin Aspart (NovoLOG) BEFORE MEALS AND HS SUBQ 12/03/19 21:00 03/01/20 20:59 12/13/19 12:06 Lansoprazole (Prevacid) 30 mg DAILY GT 12/10/19 09:00 01/09/20 08:59 12/13/19 08:42 Nitroglycerin (Ntg) 0.4 mg Q5M X 3 DOSES PRN SL Prn Chest Pain 12/03/19 18:45 01/01/20 19:14 Ondansetron HCl (Zofran) 4 mg Q6H PRN IVP Nausea & Vomiting 12/03/19 19:15 01/01/20 19:14 Polyethylene Glycol (Miralax) 17 gm BEDTIME ORAL 12/06/19 21:00 01/05/20 20:59 12/12/19 21:29 Promethazine HCl/ Codeine (Phenergan with Codeine) 5 ml Q4H PRN ORAL For Cough 12/03/19 19:15 01/01/20 19:14 Vancomycin HCl (Firvanq) 125 mg FOUR TIMES A DAY ORAL 12/12/19 18:00 12/19/19 17:59 12/13/19 12:08 Allergies: Coded Allergies: ATENOLOL (Verified Allergy, Unknown, 05/23/16) LOSARTAN (Verified Allergy, Unknown, 05/23/16) SIMVASTATIN (Verified Allergy, Unknown, 05/23/16) Uncoded Allergies: AMLIODIPINE (Allergy, Unknown, 05/23/16) PENICILLIN (Allergy, Unknown, 12/03/19) Tolerated Ceftriaxone on 12/02/19 Subjective 89 YO M admitted with atlered mental status. Now UTI. Cover for Int Med-DR Spencer. S/P colonoscopy/EGD 12/09/19 Objective Last Vital Signs Date Time Temp Pulse Resp B/P (MAP) Pulse Ox O2 Delivery O2 Flow Rate FiO2 12/13/19 12:00 75 12/13/19 11:53 97.1 21 110/52 (71) 97 12/13/19 10:50 Room Air 12/11/19 07:00 21 12/09/19 13:40 3 Laboratory Tests Test 12/12/19 21:32 12/13/19 06:49 12/13/19 11:46 POC Whole Blood Glucose 154 MG/DL (74-106) H 162 MG/DL (74-106) H 184 MG/DL (74-106) H Microbiology Date/Time Source Procedure Growth Status 12/11/19 14:00 Stool Clostridium difficile Toxin Assay - Final Complete Intake and Output 12/12/19 12/13/19 19:00 07:00 Intake Total 900 ml Output Total 600 ml Balance 300 ml Intake Free Water 250 ml IV Total 200 ml Tube Feeding 110 ml Blood Product 100 ml Other 240 ml Output Urine Total 600 ml # Voids 2 # Bowel Movements 2 Objective Objective GENERAL: open eyes more responsive, cachectic, chronic ill appearing. HEENT: Pupils equal and reactive to light, anicteric, NG tube. NECK: Supple. No JVD. LUNGS: Fair bilateral air entry. No wheezing, rhonchi. Decreased air in the bases. HEART: S1, S2. Distant heart sounds. No murmur or gallop. ABDOMEN: Soft, nondistended, nontender. No rebound tenderness. No fluid shift. : Vela cath. EXTREMITIES: No cyanosis, clubbing, or edema. Muscle atrophy to bilateral lower extremities noted. NEUROLOGIC: Cranial nerves II to XII grossly intact, motor right side is weaker than left side. RECTAL/GENITOURINARY: Refused and deferred PSYCHIATRIC: Mood and affect unable to obtain secondary to the patient's status. Assessment/Plan Assessment/Plan Assessment/Plan Assessment/Plan ASSESSMENT: 1. Acute encephalopathy, most likely secondary to toxic metabolic encephalopathy as well as acute CVA. 2. Acute ESBL Klebsiella urinary tract infection. 3. Diabetes type 2. 4. Acute kidney injury, on chronic renal insufficiency. 5. Multifocal infarction, confirmed on MRI. 6. Hypertension. 7. Dyslipidemia. 8. Colon cancer, status post resection. 9. Alzheimer dementia. 10. History of fall with subdural hematoma, resolved. 11. Severe protein-calorie malnutrition. 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 13. C. Diff colitis 14. Dysphagia PLAN: In telemetry. Follow up with laboratory and culture. Abx: oral vanco; S/P Meropenem. ID consultation, Dr. Lopez, pulmonary consultation, Dr. Vera, Cardiology consultation with Dr. Beka Saleh, Nephrology consultation with Dr. Vin Otero. Code status: Full code. DVT prophylaxis: Eliquis. Tolerated Tube feeding @ 50 cc/hr. S/P endoscopy/colonoscopy/PEG 12/09/19 Darren Pineda MD Dec 13, 2019 14:39
--- NOTE | 2019-12-13 14:41 | Cardiology Progress Note ---
Assessment/Plan Assessment/Plan 1. 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 2. Altered mental status, probably secondary to above. 3. Renal insufficiency acute on chronic. 4. Urinary tract infection. 5. History of subdural hematoma post fall. 6. B12 deficiency. 7. Diabetes mellitus. 8. Anemia. 9. Iron deficiency. 10. 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 ct neg 11 c diff neuro recommended dapt initally but then to anticoagualtion with eliquis since only urin cx + but blood cx neg , stool c diff getting tube feeding carotid less thn 50% stenosis tele sinus no afib or svt 12/11 ct of hip right neg for fx s/p alb bp seem ok watch renal fx cr improved with hydration arterial dupelx left arm and left leg were performed no hemodynamically sig stenosis noted Subjective Subjective . resting in bed calm and comfortable. Pt is on room air and breathing unlabored. on gtube feeding Glucerna 1.2 55ml/hr. No gastric residual noted. tolerating feeding well. hamlin catheter is inplaced patent and draining well to gravity Objective Last 24 Hour Vital Signs Date Time Temp Pulse Resp B/P (MAP) Pulse Ox O2 Delivery O2 Flow Rate FiO2 12/13/19 12:00 75 12/13/19 11:53 97.1 73 21 110/52 (71) 97 12/13/19 10:50 Room Air 12/13/19 08:00 97.1 70 18 131/77 (95) 99 12/13/19 08:00 67 12/13/19 04:00 70 12/13/19 04:00 97.5 70 20 116/56 (76) 98 12/13/19 00:00 98.7 85 20 150/68 (95) 96 12/13/19 00:00 67 12/12/19 20:00 70 12/12/19 20:00 97.5 75 20 122/52 (75) 97 12/12/19 16:00 98.1 81 19 109/57 (74) 96 12/12/19 16:00 67 Intake and Output 12/12/19 12/13/19 19:00 07:00 Intake Total 900 ml Output Total 600 ml Balance 300 ml Intake Free Water 250 ml IV Total 200 ml Tube Feeding 110 ml Blood Product 100 ml Other 240 ml Output Urine Total 600 ml # Voids 2 # Bowel Movements 2 Laboratory Tests Test 12/12/19 21:32 12/13/19 06:49 12/13/19 11:46 POC Whole Blood Glucose 154 MG/DL (74-106) H 162 MG/DL (74-106) H 184 MG/DL (74-106) H Microbiology Date/Time Source Procedure Growth Status 12/11/19 14:00 Stool Clostridium difficile Toxin Assay - Final Complete Beka Saleh MD Dec 13, 2019 14:41
--- NOTE | 2019-12-13 15:37 | Infectious Diseases Prog Note ---
Assessment/Plan Assessment: COVID19 neg x1 (12/01 rapid COVID PCR neg) Cdiff colitis -12/10 Cdif toxin a/ab + UTI, SP rx -u/a wbc tnct, nit neg, leuk +3; ucx >100k ESBL K. pna Low grade fever x1 Leukocytosis; recurrent -12/10 u/a no pyuria CXR: no acute process -12/01 Bcx NTD Probable PNA -12/04 CXR: no acute process -12/01 CXR: Obscured left hemidiaphragm, could indicate pleural fluid and/ orparenchymal consolidation/atelectasis. Correlate with clinical findings Acute encephalopathy/facial droop- Multifocal infarcts -12/08 MRI/MRA head/neck: No MRI evidence of proximal intracranial cerebrovascular insufficiency -12/01 Brain MRI wo: Multifocal infarcts the largest of which are located within the norberto left of midline as well as the left frontal lobe medially. Multifocal lacunar infarcts are noted scattered bilaterally including the cerebellar hemispheres and the left cerebellar peduncle. Age-related changes. CT head wo: Age-related atrophy and small vessel disease of aging, similar to that noted on the previous study. No acute intracranial pathology. If there is concern for etiology such as early acute lacunar infarcts, magnetic resonance imaging of the brain with diffusion-weighted sequences should be performed for follow-up FRANKY on CKD, worsened, now improvnig -REnal US: Small kidneys bilaterally. No evidence of hydronephrosis. Empty bladder with a Vela catheter. Incidental finding left renal cyst. 12/08 SP EGD/PEG placement R hip pain -R hip CT: No evidence of acute bony trauma or significant soft tissue trauma. Rectal fecal impaction. Colonic diverticulosis Dm2 HTN HLD colon CA sp treatment Alzheimer's dementia fall w/ resultant [facility] resident ([facility]) Plan: -PO Vancomycin 125mg qid #05/12-14 -12/08 SP Meropenem #7 -12/08/19 SP Vancomycin #4 -12/02 Sp Aztreonam #1 -12/01 SP Ceftriaxone x1 -f/u cx -Monitor CBC/CMP, temperatures -aspiration precautions -PEG care -Cdiff contact isolation -CBC, CMP am Thank you for this consultation. Will continue to follow along with you. Discussed with RN. Subjective Allergies: Coded Allergies: ATENOLOL (Verified Allergy, Unknown, 05/23/16) LOSARTAN (Verified Allergy, Unknown, 05/23/16) SIMVASTATIN (Verified Allergy, Unknown, 05/23/16) Uncoded Allergies: AMLIODIPINE (Allergy, Unknown, 05/23/16) PENICILLIN (Allergy, Unknown, 12/03/19) Tolerated Ceftriaxone on 12/02/19 Tm 100 wbc remains at 13 cdiff positive Objective Last 24 Hour Vital Signs Date Time Temp Pulse Resp B/P (MAP) Pulse Ox O2 Delivery O2 Flow Rate FiO2 12/13/19 12:00 75 12/13/19 11:53 97.1 73 21 110/52 (71) 97 12/13/19 10:50 Room Air 12/13/19 08:00 97.1 70 18 131/77 (95) 99 12/13/19 08:00 67 12/13/19 04:00 70 12/13/19 04:00 97.5 70 20 116/56 (76) 98 12/13/19 00:00 98.7 85 20 150/68 (95) 96 12/13/19 00:00 67 12/12/19 20:00 70 12/12/19 20:00 97.5 75 20 122/52 (75) 97 12/12/19 16:00 98.1 81 19 109/57 (74) 96 12/12/19 16:00 67 Height (Feet): 5 Height (Inches): 6.00 Weight (Pounds): 115 General Appearance: no apparent distress Cardiovascular: normal rate Respiratory/Chest: lungs clear - ant Abdomen: normal bowel sounds, non tender, soft Extremities: no swelling Microbiology Date/Time Source Procedure Growth Status 12/11/19 14:00 Stool Clostridium difficile Toxin Assay - Final Complete Laboratory Tests Test 12/12/19 21:32 12/13/19 06:49 12/13/19 11:46 POC Whole Blood Glucose 154 MG/DL (74-106) H 162 MG/DL (74-106) H 184 MG/DL (74-106) H Current Medications Medications (Trade) Dose Ordered Sig/James Route PRN Reason Start Time Stop Time Status Last Admin Dose Admin Acetaminophen (Tylenol) 650 mg Q4H PRN ORAL fever 12/03/19 18:48 01/02/20 18:47 Apixaban (Eliquis) 2.5 mg BID ORAL 12/05/19 09:00 03/04/20 08:59 12/13/19 08:42 Barium Sulfate (Varibar Honey) 250 ml NOW PRN RAD 12/12/19 13:15 12/15/19 13:05 Barium Sulfate (Varibar [place]) 240 ml NOW PRN RAD 12/12/19 13:15 12/15/19 13:05 Barium Sulfate (Varibar Pudding) 230 ml NOW PRN RAD 12/12/19 13:15 12/15/19 13:05 Barium Sulfate (Varibar Thin Liquid powder) 148 gm NOW PRN RAD 12/12/19 13:15 12/15/19 13:05 Clonidine HCl (Catapres Tab) 0.1 mg Q4H PRN ORAL For High Blood Pressure 12/03/19 19:15 03/01/20 19:14 Dextrose (Dextrose 50%) 25 ml Q30M PRN IV Hypoglycemia 12/03/19 18:45 03/01/20 19:14 Dextrose (Dextrose 50%) 50 ml Q30M PRN IV Hypoglycemia 12/03/19 18:45 03/01/20 19:14 Escitalopram Oxalate (Lexapro) 10 mg DAILY ORAL 12/04/19 09:00 01/02/20 08:59 12/13/19 08:42 Folic Acid (Folate) 2 mg DAILY NG 12/05/19 09:00 01/04/20 08:59 12/13/19 08:42 Insulin Aspart (NovoLOG) BEFORE MEALS AND HS SUBQ 12/03/19 21:00 03/01/20 20:59 12/13/19 12:06 Lansoprazole (Prevacid) 30 mg DAILY GT 12/10/19 09:00 01/09/20 08:59 12/13/19 08:42 Nitroglycerin (Ntg) 0.4 mg Q5M X 3 DOSES PRN SL Prn Chest Pain 12/03/19 18:45 01/01/20 19:14 Ondansetron HCl (Zofran) 4 mg Q6H PRN IVP Nausea & Vomiting 12/03/19 19:15 01/01/20 19:14 Polyethylene Glycol (Miralax) 17 gm BEDTIME ORAL 12/06/19 21:00 01/05/20 20:59 12/12/19 21:29 Promethazine HCl/ Codeine (Phenergan with Codeine) 5 ml Q4H PRN ORAL For Cough 12/03/19 19:15 01/01/20 19:14 Vancomycin HCl (Firvanq) 125 mg FOUR TIMES A DAY ORAL 12/12/19 18:00 12/19/19 17:59 12/13/19 12:08 Velma Lopez M.D. Dec 13, 2019 15:37
--- NOTE | 2019-12-13 16:00 | NUR ---
NURSE NOTES: changed tube feeding drsg changed. will cont to monitor.
[2019-12-13 16:08] VITALS: BP 129/54
--- NOTE | 2019-12-13 19:19 | NUR ---
NURSE NOTES: Received hand-off report from AUGUST Stewart. Patient bilateral radial pules palpable, equal +2, skin is warm and intact, offered toileting and oral care, breathing unlabored and even, alert and orientedx2 to baseline, able to state name and where he is from, monitoring manager in place, responsive to tactile and verbal stimuli, bed in lowest and locked position, side rails x2 up, bed alarm on, repositioned for comfort, glucerna 1.5 running at 55mL/h, no aspiration noted, hamlin catheter patent and draining clear yellow urine, no pain or tenderness noted at this time, call light within reach.
--- NOTE | 2019-12-13 19:19 | NUR ---
NURSE HAND-OFF REPORT: Important Events on Shift: wound care treatment. aspiration precaution. Patient Status: Diet: Pending Orders: Pending Results/Labs: Pending MD notification: Latest Vital Signs: Temperature 98.6 , Pulse 86 , B/P 129 /54 , Respiratory Rate 21 , O2 SAT 97 , Room Air, O2 Flow Rate 3 . Vital Sign Comment: EKG Rhythm: SR w/ 1st degree AVB & BBB Rhythm change?: N MD Notified?: Ras gonzáles MD Response: Message left await call Latest Zhang Fall Score: 70 Fall Risk: High Risk Safety Measures: Call light Within Reach, Bed Alarm Zone 2, Side Rails Side Rails x3, Bed position Low and Locked. Fall Precautions: Yellow Socks Yellow Gown Patient Fall Education Report given to nory.
[2019-12-13 20:00] VITALS: BP 126/69
[2019-12-13] MEDS: Miralax 17gm pkt ORAL SCH ×2 (20:44→20:47)
[2019-12-14] VITALS (7 sets, daily range): BP systolic 89–120; BP diastolic 42–61
[2019-12-14] MEDS: NovoLOG Insulin Flexpen SUBQ SCH ×4 (07:03→21:00)
--- NOTE | 2019-12-14 07:15 | NUR ---
NURSE HAND-OFF REPORT: Important Events on Shift: Video swallow 12/14 Patient Status: Diet: glucerna 1.5 55mL/h Pending Orders: Pending Results/Labs: Pending MD notification: Latest Vital Signs: Temperature 97.7 , Pulse 70 , B/P 116 /61 , Respiratory Rate 20 , O2 SAT 97 , Room Air, O2 Flow Rate 3 . Vital Sign Comment: EKG Rhythm: SR w AVB BBB Rhythm change?: N MD Notified?: Ras gonzáles MD Response: Message left await call Latest Zhang Fall Score: 70 Fall Risk: High Risk Safety Measures: Call light Within Reach, Bed Alarm Zone 2, Side Rails Side Rails x3, Bed position Low and Locked. Fall Precautions: Yellow Socks Yellow Gown Patient Fall Education Report given to AUGUST Stewart.
--- NOTE | 2019-12-14 07:30 | NUR ---
NURSE NOTES: Received pt A/A/Ox2, asleep. calm and comfortable. Arousable by tactile stimuli and by name. Pt is on room air and breathing unlabored. on gtube feeding Glucerna 1.2 55ml/hr. No gastric residual noted. tolerating feeding well. HOB elevated for aspiration precaution. hamlin catheter is inplaced patent and draining well to gravity. PIV on LHand 22G SL patent dry and intact. On p200 mattress for skin integrity. Bed locked and in lowest position with call light within reach. brakes and locked @ all times. Will continue to monitor.
[2019-12-14] MEDS: Vancomycin oral 125mg/2.5ml ORAL SCH ×4 (08:15→21:00)
[2019-12-14] MEDS: Eliquis 2.5mg tablet ORAL SCH ×2 (08:16→17:28)
--- NOTE | 2019-12-14 08:17 | NUR ---
NURSE NOTES: SPOKE WITH YEIMI RODRÍGUEZ RE: [place] IS OUT OF STOCK. WILL CONT TO MONITOR. Addendum: 12/14/19 at 1237 by PRITESH CROSS LVN NURSE NOTES: MADE DR OLIVEROS AWARE OF THE ABOVE. WILL CONT TO MONITOR.
[2019-12-14 10:13] LABS: BASOPHILS % (AUTO) 0.9 % (0.0-2.0); HEMATOCRIT 26.8 % (42.0-52.0); HEMOGLOBIN 8.3 G/DL (14.2-18.0); LYMPHOCYTES % (AUTO) 7.1 % (20.0-45.0); MEAN CORPUSCULAR VOLUME 86 FL (80-99); MONOCYTES % (AUTO) 6.9 % (1.0-10.0); NEUTROPHILS % (AUTO) 84.2 % (45.0-75.0); PLATELET COUNT 381 K/UL (150-450); RED CELL DISTRIBUTION WIDTH 13.4 % (11.6-14.8); WHITE BLOOD COUNT 13.8 K/UL (4.8-10.8)
--- NOTE | 2019-12-14 10:30 | NUR ---
NURSE NOTES: wound treatment rendered. will cont to monitor. Addendum: 12/14/19 at 1901 by PRITESH CROSS LVN changed gtube drsg and abdominal binder applied. will cont to monitor.
[2019-12-14 10:34] LABS: ALBUMIN 1.9 G/DL (3.4-5.0); ALBUMIN/GLOBULIN RATIO 0.5 (1.0-2.7); BILIRUBIN,TOTAL 0.3 MG/DL (0.2-1.0); CREATININE 1.3 MG/DL (0.55-1.30); POTASSIUM 4.1 MMOL/L (3.5-5.1)
--- NOTE | 2019-12-14 12:44 | Cardiology Progress Note ---
Assessment/Plan Assessment/Plan 1. 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 2. Altered mental status, probably secondary to above. 3. Renal insufficiency acute on chronic. 4. Urinary tract infection. 5. History of subdural hematoma post fall. 6. B12 deficiency. 7. Diabetes mellitus. 8. Anemia. 9. Iron deficiency. 10. 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 ct neg 11 c diff neuro recommended dapt initally but then to anticoagualtion with eliquis since only urin cx + but blood cx neg , stool c diff getting tube feeding carotid less thn 50% stenosis tele sinus no afib or svt 12/13 ct of hip right neg for fx s/p alb bp seem ok watch renal fx cr improved with hydration arterial dupelx left arm and left leg were performed recently no hemodynamically sig stenosis noted Subjective Cardiovascular: Denies: chest pain, lightheadedness, palpitations Respiratory: Denies: shortness of breath Gastrointestinal/Abdominal: Denies: abdominal pain Objective Last 24 Hour Vital Signs Date Time Temp Pulse Resp B/P (MAP) Pulse Ox O2 Delivery O2 Flow Rate FiO2 12/14/19 12:00 98.9 75 19 115/42 (66) 99 12/14/19 09:45 Room Air 12/14/19 08:00 98.8 72 17 109/46 (67) 95 12/14/19 08:00 73 12/14/19 04:00 70 12/14/19 04:00 97.7 72 20 116/61 (79) 97 12/14/19 00:00 97.1 78 20 110/52 (71) 100 12/14/19 00:00 78 12/13/19 20:00 98.2 86 20 126/69 (88) 99 12/13/19 20:00 91 12/13/19 17:01 86 12/13/19 16:08 98.6 87 21 129/54 (79) 97 General Appearance: alert, patient on isolation, isolation precautions Cardiovascular: normal rate Respiratory/Chest: lungs clear Abdomen: normal bowel sounds, non tender, soft Extremities: no swelling Intake and Output 12/13/19 12/14/19 19:00 07:00 Intake Total 835 ml 155 ml Balance 835 ml 155 ml Intake Free Water 230 ml 100 ml Tube Feeding 605 ml 55 ml Laboratory Tests Test 12/13/19 21:55 12/14/19 09:15 POC Whole Blood Glucose 171 MG/DL (74-106) H White Blood Count 13.8 K/UL (4.8-10.8) H Red Blood Count 3.10 M/UL (4.70-6.10) L Hemoglobin 8.3 G/DL (14.2-18.0) L Hematocrit 26.8 % (42.0-52.0) L Mean Corpuscular Volume 86 FL (80-99) Mean Corpuscular Hemoglobin 26.9 PG (27.0-31.0) L Mean Corpuscular Hemoglobin Concent 31.1 G/DL (32.0-36.0) L Red Cell Distribution Width 13.4 % (11.6-14.8) Platelet Count 381 K/UL (150-450) Mean Platelet Volume 5.0 FL (6.5-10.1) L Neutrophils (%) (Auto) 84.2 % (45.0-75.0) H Lymphocytes (%) (Auto) 7.1 % (20.0-45.0) L Monocytes (%) (Auto) 6.9 % (1.0-10.0) Eosinophils (%) (Auto) 1.0 % (0.0-3.0) Basophils (%) (Auto) 0.9 % (0.0-2.0) Sodium Level 149 MMOL/L (136-145) H Potassium Level 4.1 MMOL/L (3.5-5.1) Chloride Level 110 MMOL/L (98-107) H Carbon Dioxide Level 33 MMOL/L (21-32) H Anion Gap 7 mmol/L (5-15) Blood Urea Nitrogen 64 mg/dL (7-18) H Creatinine 1.3 MG/DL (0.55-1.30) Estimat Glomerular Filtration Rate 52.1 mL/min (>60) Glucose Level 170 MG/DL (74-106) H Calcium Level 8.0 MG/DL (8.5-10.1) L Total Bilirubin 0.3 MG/DL (0.2-1.0) Aspartate Amino Transf (AST/SGOT) 32 U/L (15-37) Alanine Aminotransferase (ALT/SGPT) 40 U/L (12-78) Alkaline Phosphatase 80 U/L (46-116) Total Protein 5.7 G/DL (6.4-8.2) L Albumin 1.9 G/DL (3.4-5.0) L Globulin 3.8 g/dL Albumin/Globulin Ratio 0.5 (1.0-2.7) L Microbiology Date/Time Source Procedure Growth Status 12/11/19 14:00 Stool Clostridium difficile Toxin Assay - Final Complete Beka Saleh MD Dec 14, 2019 12:44
--- NOTE | 2019-12-14 14:53 | Internal Med Progress Note ---
Subjective Date of Service: Dec 14, 2019 Physician Name Darren Pineda Attending Physician Darren Spencer MD Current Medications Medications (Trade) Dose Ordered Sig/James Route PRN Reason Start Time Stop Time Status Last Admin Dose Admin Acetaminophen (Tylenol) 650 mg Q4H PRN ORAL fever 12/03/19 18:48 01/02/20 18:47 Apixaban (Eliquis) 2.5 mg BID ORAL 12/05/19 09:00 03/04/20 08:59 12/14/19 08:16 Barium Sulfate (Varibar Honey) 250 ml NOW PRN MC RAD 12/12/19 13:15 12/15/19 13:05 Barium Sulfate (Varibar Mentone) 240 ml NOW PRN MC RAD 12/12/19 13:15 12/15/19 13:05 Barium Sulfate (Varibar Pudding) 230 ml NOW PRN MC RAD 12/12/19 13:15 12/15/19 13:05 Barium Sulfate (Varibar Thin Liquid powder) 148 gm NOW PRN RAD 12/12/19 13:15 12/15/19 13:05 Clonidine HCl (Catapres Tab) 0.1 mg Q4H PRN ORAL For High Blood Pressure 12/03/19 19:15 03/01/20 19:14 Dextrose (Dextrose 50%) 25 ml Q30M PRN IV Hypoglycemia 12/03/19 18:45 03/01/20 19:14 Dextrose (Dextrose 50%) 50 ml Q30M PRN IV Hypoglycemia 12/03/19 18:45 03/01/20 19:14 Escitalopram Oxalate (Lexapro) 10 mg DAILY ORAL 12/04/19 09:00 01/02/20 08:59 12/14/19 08:15 Folic Acid (Folate) 2 mg DAILY NG 12/05/19 09:00 01/04/20 08:59 12/14/19 08:15 Insulin Aspart (NovoLOG) BEFORE MEALS AND HS SUBQ 12/03/19 21:00 03/01/20 20:59 12/14/19 12:12 Lansoprazole (Prevacid) 30 mg DAILY GT 12/10/19 09:00 01/09/20 08:59 12/14/19 08:15 Metronidazole 100 ml @ 100 mls/hr TID IVPB 12/14/19 14:45 12/21/19 14:44 UNV Nitroglycerin (Ntg) 0.4 mg Q5M X 3 DOSES PRN SL Prn Chest Pain 12/03/19 18:45 01/01/20 19:14 Ondansetron HCl (Zofran) 4 mg Q6H PRN IVP Nausea & Vomiting 12/03/19 19:15 01/01/20 19:14 Polyethylene Glycol (Miralax) 17 gm BEDTIME ORAL 12/06/19 21:00 01/05/20 20:59 12/10/19 21:34 Promethazine HCl/ Codeine (Phenergan with Codeine) 5 ml Q4H PRN ORAL For Cough 12/03/19 19:15 01/01/20 19:14 Vancomycin HCl (Firvanq) 125 mg FOUR TIMES A DAY ORAL 12/12/19 18:00 12/19/19 17:59 12/13/19 22:01 Allergies: Coded Allergies: ATENOLOL (Verified Allergy, Unknown, 05/23/16) LOSARTAN (Verified Allergy, Unknown, 05/23/16) SIMVASTATIN (Verified Allergy, Unknown, 05/23/16) Uncoded Allergies: AMLIODIPINE (Allergy, Unknown, 05/23/16) PENICILLIN (Allergy, Unknown, 12/03/19) Tolerated Ceftriaxone on 12/02/19 ROS Limited/Unobtainable: Yes Subjective 89 YO M admitted with atlered mental status. Now UTI. Cover for Int Med-DR Spencer. S/P colonoscopy/EGD 12/09/19 Objective Last Vital Signs Date Time Temp Pulse Resp B/P (MAP) Pulse Ox O2 Delivery O2 Flow Rate FiO2 12/14/19 12:00 98.9 75 19 115/42 (66) 99 12/14/19 09:45 Room Air 12/11/19 07:00 21 12/09/19 13:40 3 Laboratory Tests Test 12/13/19 21:55 12/14/19 09:15 POC Whole Blood Glucose 171 MG/DL (74-106) H White Blood Count 13.8 K/UL (4.8-10.8) H Red Blood Count 3.10 M/UL (4.70-6.10) L Hemoglobin 8.3 G/DL (14.2-18.0) L Hematocrit 26.8 % (42.0-52.0) L Mean Corpuscular Volume 86 FL (80-99) Mean Corpuscular Hemoglobin 26.9 PG (27.0-31.0) L Mean Corpuscular Hemoglobin Concent 31.1 G/DL (32.0-36.0) L Red Cell Distribution Width 13.4 % (11.6-14.8) Platelet Count 381 K/UL (150-450) Mean Platelet Volume 5.0 FL (6.5-10.1) L Neutrophils (%) (Auto) 84.2 % (45.0-75.0) H Lymphocytes (%) (Auto) 7.1 % (20.0-45.0) L Monocytes (%) (Auto) 6.9 % (1.0-10.0) Eosinophils (%) (Auto) 1.0 % (0.0-3.0) Basophils (%) (Auto) 0.9 % (0.0-2.0) Sodium Level 149 MMOL/L (136-145) H Potassium Level 4.1 MMOL/L (3.5-5.1) Chloride Level 110 MMOL/L (98-107) H Carbon Dioxide Level 33 MMOL/L (21-32) H Anion Gap 7 mmol/L (5-15) Blood Urea Nitrogen 64 mg/dL (7-18) H Creatinine 1.3 MG/DL (0.55-1.30) Estimat Glomerular Filtration Rate 52.1 mL/min (>60) Glucose Level 170 MG/DL (74-106) H Calcium Level 8.0 MG/DL (8.5-10.1) L Total Bilirubin 0.3 MG/DL (0.2-1.0) Aspartate Amino Transf (AST/SGOT) 32 U/L (15-37) Alanine Aminotransferase (ALT/SGPT) 40 U/L (12-78) Alkaline Phosphatase 80 U/L (46-116) Total Protein 5.7 G/DL (6.4-8.2) L Albumin 1.9 G/DL (3.4-5.0) L Globulin 3.8 g/dL Albumin/Globulin Ratio 0.5 (1.0-2.7) L Intake and Output 12/13/19 12/14/19 19:00 07:00 Intake Total 835 ml 155 ml Balance 835 ml 155 ml Intake Free Water 230 ml 100 ml Tube Feeding 605 ml 55 ml Objective Objective GENERAL: open eyes more responsive, cachectic, chronic ill appearing. HEENT: Pupils equal and reactive to light, anicteric, NG tube. NECK: Supple. No JVD. LUNGS: Fair bilateral air entry. No wheezing, rhonchi. Decreased air in the bases. HEART: S1, S2. Distant heart sounds. No murmur or gallop. ABDOMEN: Soft, nondistended, nontender. No rebound tenderness. No fluid shift. : Vela cath. EXTREMITIES: No cyanosis, clubbing, or edema. Muscle atrophy to bilateral lower extremities noted. NEUROLOGIC: Cranial nerves II to XII grossly intact, motor right side is weaker than left side. RECTAL/GENITOURINARY: Refused and deferred PSYCHIATRIC: Mood and affect unable to obtain secondary to the patient's status. Assessment/Plan Assessment/Plan Assessment/Plan Assessment/Plan ASSESSMENT: 1. Acute encephalopathy, most likely secondary to toxic metabolic encephalopathy as well as acute CVA. 2. Acute ESBL Klebsiella urinary tract infection. 3. Diabetes type 2. 4. Acute kidney injury, on chronic renal insufficiency. 5. Multifocal infarction, confirmed on MRI. 6. Hypertension. 7. Dyslipidemia. 8. Colon cancer, status post resection. 9. Alzheimer dementia. 10. History of fall with subdural hematoma, resolved. 11. Severe protein-calorie malnutrition. 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 13. C. Diff colitis 14. Dysphagia PLAN: In telemetry. Follow up with laboratory and culture. Abx: oral vanco and IV flagyl; S/P Meropenem. ID consultation, Dr. Lopez, pulmonary consultation, Dr. Vera, Cardiology consultation with Dr. Beka Saleh, Nephrology consultation with Dr. Vin Otero. Code status: Full code. DVT prophylaxis: Eliquis. Tolerated Tube feeding @ 50 cc/hr. S/P endoscopy/colonoscopy/PEG 12/09/19 Darren Pineda MD Dec 14, 2019 14:53
--- NOTE | 2019-12-14 16:19 | Nephrology Progress Note ---
Assessment/Plan Problem List: (1) FRANKY (acute kidney injury) (2) Anemia (3) Severe protein-calorie malnutrition (4) Alzheimer's dementia (5) UTI (urinary tract infection) (6) Acute dehydration Assessment Acute on chronic renal failure. Previous admission patient was discharged on serum creatinine of 1.6. Severe malnutrition. Encephalopathy toxic metabolic. Evidence of UTI. Multi-infarct brain disease. Diabetes mellitus Hypertension History of colon cancer Alzheimer's senior care resident Full code Plan December 13: Lab reviewed.Serum creatinine normal. Continue current management. December 11: Lab reviewed. Serum creatinine normalized. Continue per current management. Continue to monitor renal parameters. December 10: Labs reviewed. Creatinine higher. Albumin 5% bolus of 500 cc ordered. Urine studies ordered. Continue to monitor renal parameters. Per orders. December 09: Lab reviewed. Patient has PEG. Stable from renal standpoint of view. Serum creatinine 1.5 December 08: Labs are reviewed. Stable from renal standpoint. December 07: No chemistry panel done today. Will check labs tomorrow. Stable from renal standpoint of view December 06: Renal parameters stable. DC IV fluid. Continue per consultants. December 05: Renal parameters improving. Continue IV fluid. Continue to monitor renal parameters and electrolytes. Medication list reviewed. Abnormal electrolyte addressed. December 04: Serum creatinine improving. IV fluid changed to D5W 30 cc an hour. Feeding through NG tube is in process. Continue to monitor electrolytes and renal parameters. December 03: Late note entry due to system problem at the [facility] [place]. Serum creatinine improving. Folic acid supplement given. Continue to monitor renal parameters Slow hydrate Monitor renal parameters urine output Antibiotics Avoid nephrotoxic's Per consultants Improve nutritional status as possible Subjective ROS Limited/Unobtainable: Yes Objective Objective Last 24 Hour Vital Signs Date Time Temp Pulse Resp B/P (MAP) Pulse Ox O2 Delivery O2 Flow Rate FiO2 12/14/19 15:57 98.8 72 18 89/47 (61) 94 12/14/19 12:00 98.9 75 19 115/42 (66) 99 12/14/19 12:00 72 12/14/19 09:45 Room Air 12/14/19 08:00 98.8 72 17 109/46 (67) 95 12/14/19 08:00 73 12/14/19 04:00 70 12/14/19 04:00 97.7 72 20 116/61 (79) 97 12/14/19 00:00 97.1 78 20 110/52 (71) 100 12/14/19 00:00 78 12/13/19 20:00 98.2 86 20 126/69 (88) 99 12/13/19 20:00 91 12/13/19 17:01 86 Intake and Output 12/13/19 12/14/19 19:00 07:00 Intake Total 835 ml 155 ml Balance 835 ml 155 ml Intake Free Water 230 ml 100 ml Tube Feeding 605 ml 55 ml Laboratory Tests 12/13/19 21:55: POC Whole Blood Glucose 171H 12/14/19 09:15: White Blood Count 13.8H, Red Blood Count 3.10L, Hemoglobin 8.3L, Hematocrit 26.8L, Mean Corpuscular Volume 86, Mean Corpuscular Hemoglobin 26.9L, Mean Corpuscular Hemoglobin Concent 31.1L, Red Cell Distribution Width 13.4, Platelet Count 381, Mean Platelet Volume 5.0L, Neutrophils (%) (Auto) 84.2H, Lymphocytes (%) (Auto) 7.1L, Monocytes (%) (Auto) 6.9, Eosinophils (%) (Auto) 1.0, Basophils (%) (Auto) 0.9, Sodium Level 149H, Potassium Level 4.1, Chloride Level 110H, Carbon Dioxide Level 33H, Anion Gap 7, Blood Urea Nitrogen 64H, Creatinine 1.3, Estimat Glomerular Filtration Rate 52.1, Glucose Level 170H, Calcium Level 8.0L, Total Bilirubin 0.3, Aspartate Amino Transf (AST/SGOT) 32, Alanine Aminotransferase (ALT/SGPT) 40, Alkaline Phosphatase 80, Total Protein 5.7L, Albumin 1.9L, Globulin 3.8, Albumin/Globulin Ratio 0.5L Height (Feet): 5 Height (Inches): 6.00 Weight (Pounds): 115 General Appearance: no apparent distress Objective No change Vin Otero MD Dec 14, 2019 16:19
--- NOTE | 2019-12-14 16:45 | Surgery Progress Note ---
Surgery Progress Note Subjective Symptoms: improved, tolerating diet, passing flatus, BM Objective Last 24 Hour Vital Signs Date Time Temp Pulse Resp B/P (MAP) Pulse Ox O2 Delivery O2 Flow Rate FiO2 12/14/19 15:57 98.8 72 18 89/47 (61) 94 12/14/19 12:00 98.9 75 19 115/42 (66) 99 12/14/19 12:00 72 12/14/19 09:45 Room Air 12/14/19 08:00 98.8 72 17 109/46 (67) 95 12/14/19 08:00 73 12/14/19 04:00 70 12/14/19 04:00 97.7 72 20 116/61 (79) 97 12/14/19 00:00 97.1 78 20 110/52 (71) 100 12/14/19 00:00 78 12/13/19 20:00 98.2 86 20 126/69 (88) 99 12/13/19 20:00 91 12/13/19 17:01 86 I&O Intake and Output 12/13/19 12/14/19 19:00 07:00 Intake Total 835 ml 155 ml Balance 835 ml 155 ml Intake Free Water 230 ml 100 ml Tube Feeding 605 ml 55 ml Dressing: saturated Wound: intact Cardiovascular: RSR Respiratory: decreased breath sounds Abdomen: non-tender, present bowel sounds Extremities: no edema, no tenderness, no cyanosis Laboratory Tests Test 12/13/19 21:55 12/14/19 09:15 12/14/19 16:18 POC Whole Blood Glucose 171 MG/DL (74-106) H 170 MG/DL (74-106) H White Blood Count 13.8 K/UL (4.8-10.8) H Red Blood Count 3.10 M/UL (4.70-6.10) L Hemoglobin 8.3 G/DL (14.2-18.0) L Hematocrit 26.8 % (42.0-52.0) L Mean Corpuscular Volume 86 FL (80-99) Mean Corpuscular Hemoglobin 26.9 PG (27.0-31.0) L Mean Corpuscular Hemoglobin Concent 31.1 G/DL (32.0-36.0) L Red Cell Distribution Width 13.4 % (11.6-14.8) Platelet Count 381 K/UL (150-450) Mean Platelet Volume 5.0 FL (6.5-10.1) L Neutrophils (%) (Auto) 84.2 % (45.0-75.0) H Lymphocytes (%) (Auto) 7.1 % (20.0-45.0) L Monocytes (%) (Auto) 6.9 % (1.0-10.0) Eosinophils (%) (Auto) 1.0 % (0.0-3.0) Basophils (%) (Auto) 0.9 % (0.0-2.0) Sodium Level 149 MMOL/L (136-145) H Potassium Level 4.1 MMOL/L (3.5-5.1) Chloride Level 110 MMOL/L (98-107) H Carbon Dioxide Level 33 MMOL/L (21-32) H Anion Gap 7 mmol/L (5-15) Blood Urea Nitrogen 64 mg/dL (7-18) H Creatinine 1.3 MG/DL (0.55-1.30) Estimat Glomerular Filtration Rate 52.1 mL/min (>60) Glucose Level 170 MG/DL (74-106) H Calcium Level 8.0 MG/DL (8.5-10.1) L Total Bilirubin 0.3 MG/DL (0.2-1.0) Aspartate Amino Transf (AST/SGOT) 32 U/L (15-37) Alanine Aminotransferase (ALT/SGPT) 40 U/L (12-78) Alkaline Phosphatase 80 U/L (46-116) Total Protein 5.7 G/DL (6.4-8.2) L Albumin 1.9 G/DL (3.4-5.0) L Globulin 3.8 g/dL Albumin/Globulin Ratio 0.5 (1.0-2.7) L Plan Problems: (1) History of diabetes mellitus (2) History of hypertension (3) Alzheimer's dementia (4) UTI (urinary tract infection) (5) Unilateral weakness (6) Acute dehydration (7) Altered level of consciousness (8) Subdural hematoma (9) Colon cancer Assessment & Plan: Exam is limited due to patient being contracted. No evidence of acute fracture. No dislocation. The joint spaces are preserved. There is some edema of the right buttock region subcutaneous fat, but no evidence of soft tissue contusion demonstrated. No evidence of pelvic fracture. The rectum is distended by dense stool. There is a Vela catheter within the bladder. A small amount of urine within the bladder despite Vela catheter. There are colonic diverticula. Impression: No evidence of acute bony trauma or significant soft tissue trauma Rectal fecal impaction Colonic diverticulosis (10) Severe protein-calorie malnutrition Assessment & Plan: planned PEG s/p peg tf as tolerated DAILY ESTIMATED NEEDS: Needs based on Underweight, wasting, wound 40kg 30-35 kcals/kg 9700-9179 total kcals 1.25-2 g protein/kg 50-80 g total protein 25-30ml/kcal mL/kg 3481-3040 total fluid mLs NUTRITION DIAGNOSIS: Increased kcal and pro needs r/t underweight status as evidenced by low BMI, moderate to severe generalized wasting, w/ multiple areas of skin compromise, DTI x4. CURRENT DIET: NPO ENTERAL NUTRITION RECOMMENDATIONS: Glucerna 1.2 goal of 45ml/hr x24 hrs to provide 1080ml, 1296 kcal, 65g pro, 869ml free h2O - Obtain GI access, initiate Glucerna 1.2 @25ml/hr for 6 hrs - Advance as tolerated 10ml/hr q4-6 hrs to goal - Flush per MD/ HOB over 30 degrees ------ ADDITIONAL RECOMMENDATIONS: 1) W/ poor po intake, add Ensure TID -> not appropriate for oral po W/ elevated BG rec Glucerna TID-> not appropriate for oral po 2) Add FRANCISCA BID -> f/up w WC eval 3) CABLE REPAIRER eval for texture, need for non oral feeds-> S/p CABLE REPAIRER eval, not appropriate for oral diet, TF recs as above 4) Calibrated bed scale wts daily 5) Monitor lytes w/ TF, replete as needed ACUTE: ALOC x2 days with right side paralysis, CVA, intracranial bleed, seizure , postictal state, major electrolyte abnormality, severe sepsis, Acute dehydration. H/O: subdural hematoma, colon cancer status post treatment, HTN, Syncope and collapse, anemia, DM2, Alzheimer Dementia, CKD, severe protein-calorie malnutrition, hyperlipidemia, vitamin B12 deficiency, muscle wasting, lack of coordination. POLST: Not in chart. RELEVANT MEDS: Albuterol (SOB); Zofran (Nausea); Restoril (insomnia). VITALS ON 2L NASAL CANNULA: HR: 67; RR: 19; SP02 100% PLOF: Pt consumed mechanical soft with thin liquids [facility]. Pt seen at bedside appears frail and weak. Pt able to open eye to verbal communication. Pt noted with copious, thick phlegm and debris in BOT and throughout oral cavity. Pt provided oral moisturizer and thorough oral care with Yankauer suction, removing thick phlegm, mildly improved verbal communication s/p oral care. Pt able to nod head yes when asked if Pt gets thickened liquids. 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 Pt given PO trial of nectar thick liquid teaspoons. Oral phase characterized by functional labial seal, poor bolus control resulting in suspected premature posterior spillage and subsequent suspected silent aspiration given laryngeal elevation was not well appreciated upon palpation despite verbal and tactile cues to Pt's larynx to initiate swallow; no swallow initiated. Pt did not cough or attempt to clear trial. Pt was able to eventually initiate a swallow with a 20 second delay, laryngeal elevation incomplete in feel upon palpation. Pt is a high risk for silent aspiration, would benefit from MBSS in future ( will monitor Pt's candidacy, not appropriate to participate in MBSS at this time ). RECOMMENDATIONS: 1. NPO with nutrition, hydration, and meds via NGT (12 Amharic). 2. Please provide oral care BID 3. Dysphagia therapy 3-5x per week x1 week. 4. Will monitor Pts appropriateness to participate in MBSS. 5. Pt would benefit from Speech, Language, and Cognitive communication evaluation given s/p lacunar infarcts. (11) Decubitus skin ulcer Assessment & Plan: Pt presented on admission with multiple Pressure injuries. Reabsorbing DTPI L Elbow. Base of Pressure Injury is dry and black centrally with maroon borders(L)2cm x (W)1.5cm. DTPI Sacrum (L)9.5cm x (W)11.5cm. Base of Pressure Injury is indurated purpuric with surrounding maroon borders. Pt verbalized tenderness when affected site minimally palpated. DTPI R Ischium(L)8cm x (W)9.5cm. Base of pressure injury is purpuric with maroon borders. Tender when minimally palpated. DTPI L trochanter(L)4cm x (W)3.2cm. Base of injury is purpuric with surrounding Maroon borders. Tender when minimally palpated. DTPI L Ischium (L)7cm x (W)5.4cm.Base of Injury is black with marginal erythema . Tender when minimally palpated. R Heel is boggy with non-blanchable erythema (L)3cm x (W)3.5cm. L Heel is boggy with non-Blanchable erythema(L)5cm x (W)3.5cm. L 1st metatarsal erythematous,tip is fluctuant. Pt complained tender when minimally palpated. No elevation in skin temp noted. Dry scab noted to dorsal L 2nd metatarsal. Tx.Plan: Apply Moisture Barrier Paste to Sacrum and bilat ischial tuberosities. Cover each site with Optifoam drsgs. Change every 3 days and prn. Apply Cavilon Skin Barrier to R and L trochanter. Cover each site with Optifoam drsgs. Change every 7 days and prn Apply Cavilon Skin Barrier to L and R elbows. Cover each site with Optifoam drsgs. Change every 7 days and prn. Apply Cavilon Skin Barrier to both heels and Malleoli. Cover each site with Optifoam drsgs. Change every 7 days and prn. Apply Cavilon Skin Barrier to bony prominences and cover with Optifoam drsgs as needed. Reposition at least every 2hours or as tolerated. Off-load heels with pillow. APM/KARTHIK Mattress overlay. (12) Anemia (13) FRANKY (acute kidney injury) (14) Stroke Assessment & Plan: No occlusion or significant stenosis on color flow and spectral Doppler imaging. Normal waveform. No occlusion or significant stenosis on color flow and spectral Doppler imaging. Normal waveform. Atherosclerotic changes of the left popliteal artery without hemodynamically significant stenosis. Associated, atherosclerotic changes with blunted wave form of the left anterior tibial artery. This is likely secondary to upstream stenosis of the popliteal artery. Poor visualization of the left dorsalis pedis artery. IMPRESSION: Atherosclerotic changes of the left popliteal artery without hemodynamically significant stenosis. Associated, atherosclerotic changes with blunted wave form of the left anterior tibial artery. This is likely secondary to upstream stenosis of the popliteal artery. Poor visualization of the left dorsalis pedis artery. Left common carotid artery: No occlusion or significant stenosis on color flow and spectral Doppler imaging. Normal waveform. Left subclavian artery: No occlusion or significant stenosis on color flow and spectral Doppler imaging. Normal waveform. Left axillary artery: No occlusion or significant stenosis on color flow and spectral Doppler imaging. Normal waveform. Left brachial artery: No occlusion or significant stenosis on color flow and spectral Doppler imaging. Normal waveform. Left radial artery: No occlusion or significant stenosis on color flow and spectral Doppler imaging. Normal waveform. Left ulnar artery: No occlusion or significant stenosis on color flow and spectral Doppler imaging. Normal waveform. Soft tissues: Unremarkable. IMPRESSION: No arterial occlusion. Normal waveforms. Patel Merrill Dec 14, 2019 16:45
--- NOTE | 2019-12-14 19:18 | NUR ---
NURSE HAND-OFF REPORT: Important Events on Shift: BM- DIARRHEA REPORTED TO DR OLIVEROS. VANCO ORAL OUT OF STOCK. Patient Status: STABLE Diet: GLUCERNA 1.2 @ 55CC/ML Pending Orders: NO LABS Pending Results/Labs: Pending MD notification: Latest Vital Signs: Temperature 98.8 , Pulse 72 , B/P 89 /47 , Respiratory Rate 18 , O2 SAT 94 , Room Air, O2 Flow Rate 3 . Vital Sign Comment: EKG Rhythm: SR w AVB BBB Rhythm change?: N Notified?: Ras gonzáles MD Response: Message left await call Latest Zhang Fall Score: 70 Fall Risk: High Risk Safety Measures: Call light Within Reach, Bed Alarm Zone 2, Side Rails Side Rails x3, Bed position Low and Locked. Fall Precautions: Yellow Socks Yellow Gown Patient Fall Education Report given to TAL.
--- NOTE | 2019-12-14 19:28 | Pulmonology Progress Note ---
Subjective ROS Limited/Unobtainable: Yes Constitutional: Reports: no symptoms HEENT: Repors: no symptoms Allergies: Coded Allergies: ATENOLOL (Verified Allergy, Unknown, 05/23/16) LOSARTAN (Verified Allergy, Unknown, 05/23/16) SIMVASTATIN (Verified Allergy, Unknown, 05/23/16) Uncoded Allergies: AMLIODIPINE (Allergy, Unknown, 05/23/16) PENICILLIN (Allergy, Unknown, 12/03/19) Tolerated Ceftriaxone on 12/02/19 Objective Last 24 Hour Vital Signs Date Time Temp Pulse Resp B/P (MAP) Pulse Ox O2 Delivery O2 Flow Rate FiO2 12/14/19 15:57 98.8 72 18 89/47 (61) 94 12/14/19 12:00 98.9 75 19 115/42 (66) 99 12/14/19 12:00 72 12/14/19 09:45 Room Air 12/14/19 08:00 98.8 72 17 109/46 (67) 95 12/14/19 08:00 73 12/14/19 04:00 70 12/14/19 04:00 97.7 72 20 116/61 (79) 97 12/14/19 00:00 97.1 78 20 110/52 (71) 100 12/14/19 00:00 78 12/13/19 20:00 98.2 86 20 126/69 (88) 99 12/13/19 20:00 91 Intake and Output 12/13/19 12/14/19 19:00 07:00 Intake Total 835 ml 155 ml Balance 835 ml 155 ml Intake Free Water 230 ml 100 ml Tube Feeding 605 ml 55 ml General Appearance: cachetic HEENT: normocephalic, atraumatic Respiratory: chest wall non-tender, lungs clear Cardiovascular: normal peripheral pulses Abdomen: normal bowel sounds, soft, non tender Extremities: no cyanosis Skin: no ulcers Neurologic: no motor/sensory deficits Lymphatic: no neck adenopathy Laboratory Tests 12/13/19 21:55: POC Whole Blood Glucose 171H 12/14/19 09:15: White Blood Count 13.8H, Red Blood Count 3.10L, Hemoglobin 8.3L, Hematocrit 26.8L, Mean Corpuscular Volume 86, Mean Corpuscular Hemoglobin 26.9L, Mean Corpuscular Hemoglobin Concent 31.1L, Red Cell Distribution Width 13.4, Platelet Count 381, Mean Platelet Volume 5.0L, Neutrophils (%) (Auto) 84.2H, Lymphocytes (%) (Auto) 7.1L, Monocytes (%) (Auto) 6.9, Eosinophils (%) (Auto) 1.0, Basophils (%) (Auto) 0.9, Sodium Level 149H, Potassium Level 4.1, Chloride Level 110H, Carbon Dioxide Level 33H, Anion Gap 7, Blood Urea Nitrogen 64H, Creatinine 1.3, Estimat Glomerular Filtration Rate 52.1, Glucose Level 170H, Calcium Level 8.0L, Total Bilirubin 0.3, Aspartate Amino Transf (AST/SGOT) 32, Alanine Aminotransferase (ALT/SGPT) 40, Alkaline Phosphatase 80, Total Protein 5.7L, Albumin 1.9L, Globulin 3.8, Albumin/Globulin Ratio 0.5L 12/14/19 16:18: POC Whole Blood Glucose 170H Current Medications Medications (Trade) Dose Ordered Sig/James Route PRN Reason Start Time Stop Time Status Last Admin Dose Admin Acetaminophen (Tylenol) 650 mg Q4H PRN ORAL fever 12/03/19 18:48 01/02/20 18:47 Apixaban (Eliquis) 2.5 mg BID ORAL 12/05/19 09:00 03/04/20 08:59 12/14/19 17:28 Barium Sulfate (Varibar Honey) 250 ml NOW PRN MC RAD 12/12/19 13:15 12/15/19 13:05 Barium Sulfate (Varibar [place]) 240 ml NOW PRN RAD 12/12/19 13:15 12/15/19 13:05 Barium Sulfate (Varibar Pudding) 230 ml NOW PRN MC RAD 12/12/19 13:15 12/15/19 13:05 Barium Sulfate (Varibar Thin Liquid powder) 148 gm NOW PRN MC RAD 12/12/19 13:15 12/15/19 13:05 Clonidine HCl (Catapres Tab) 0.1 mg Q4H PRN ORAL For High Blood Pressure 12/03/19 19:15 03/01/20 19:14 Dextrose (Dextrose 50%) 25 ml Q30M PRN IV Hypoglycemia 12/03/19 18:45 03/01/20 19:14 Dextrose (Dextrose 50%) 50 ml Q30M PRN IV Hypoglycemia 12/03/19 18:45 03/01/20 19:14 Escitalopram Oxalate (Lexapro) 10 mg DAILY ORAL 12/04/19 09:00 01/02/20 08:59 12/14/19 08:15 Folic Acid (Folate) 2 mg DAILY NG 12/05/19 09:00 01/04/20 08:59 12/14/19 08:15 Insulin Aspart (NovoLOG) BEFORE MEALS AND HS SUBQ 12/03/19 21:00 03/01/20 20:59 12/14/19 17:29 Lansoprazole (Prevacid) 30 mg DAILY GT 12/10/19 09:00 01/09/20 08:59 12/14/19 08:15 Metronidazole 100 ml @ 100 mls/hr Q8HR IVPB 12/14/19 15:30 12/21/19 15:29 12/14/19 15:58 Nitroglycerin (Ntg) 0.4 mg Q5M X 3 DOSES PRN SL Prn Chest Pain 12/03/19 18:45 01/01/20 19:14 Ondansetron HCl (Zofran) 4 mg Q6H PRN IVP Nausea & Vomiting 12/03/19 19:15 01/01/20 19:14 Polyethylene Glycol (Miralax) 17 gm BEDTIME ORAL 12/06/19 21:00 01/05/20 20:59 12/10/19 21:34 Promethazine HCl/ Codeine (Phenergan with Codeine) 5 ml Q4H PRN ORAL For Cough 12/03/19 19:15 01/01/20 19:14 Vancomycin HCl (Firvanq) 125 mg FOUR TIMES A DAY ORAL 12/12/19 18:00 12/19/19 17:59 12/13/19 22:01 Assessment/Plan Problems: (1) Altered level of consciousness (2) UTI (urinary tract infection) (3) Severe protein-calorie malnutrition (4) History of diabetes mellitus (5) History of hypertension (6) Alzheimer's dementia (7) Unilateral weakness (8) Subdural hematoma (9) Colon cancer Assessment/Plan all reviewed no [place] com [place] looks [place] usual chronically ill self Urine has GNB, MDR Klebsiella Abx as per ID Meropenem and Vancomycin f/u electrolytes swallow study reviewed. swallow evaluation pending Neurology note appreciated Cherelle Vera MD Dec 14, 2019 19:28
--- NOTE | 2019-12-14 19:30 | NUR ---
NURSE NOTES: Pt received from ELLI Stewart. Pt is in bed resting comfortably on his left side with head raised. Pt is breathing unlabored on RA and sating 94%. Pt is on cardiac monitoring SR. Pt has LHand 22G patent and running IV antibiotics. Pt has GT running Glucerna 1.2 55ml/hr; flushes well and shows little residual. Pt is on cardiac monitoring SR and asymptomatic. Bed locked in lowest position and call light within reach. Will continue to monitor.
[2019-12-14] MEDS: Miralax 17gm pkt ORAL SCH (21:00)
[2019-12-15] VITALS: BP 107/52
[2019-12-15 04:00] VITALS: BP 110/53
[2019-12-15 05:54] LABS: HEMATOCRIT 30.2 % (42.0-52.0); HEMOGLOBIN 9.2 G/DL (14.2-18.0); MEAN CORPUSCULAR VOLUME 88 FL (80-99); PLATELET COUNT 464 K/UL (150-450); RED BLOOD COUNT 3.45 M/UL (4.70-6.10); RED CELL DISTRIBUTION WIDTH 13.5 % (11.6-14.8); WHITE BLOOD COUNT 13.7 K/UL (4.8-10.8)
[2019-12-15 06:13] LABS: ALBUMIN/GLOBULIN RATIO 0.5 (1.0-2.7); BILIRUBIN,TOTAL 0.3 MG/DL (0.2-1.0); CALCIUM 8.2 MG/DL (8.5-10.1); CREATININE 1.4 MG/DL (0.55-1.30); PHOSPHORUS 3.4 MG/DL (2.5-4.9); POTASSIUM 5.2 MMOL/L (3.5-5.1)
[2019-12-15] MEDS: NovoLOG Insulin Flexpen SUBQ SCH ×3 (06:35→17:13)
--- NOTE | 2019-12-15 07:30 | NUR ---
NURSE NOTES: Received pt from RN Braeden/Dale. pt is awake and confused, pt is in RA, no SOB or acute respiratory distress noted. pt has intact iv access LH 22G is SL. pt is on continues heart monitoring. Pt has g tube in place and working well. pt has Vela cath in place is working well. Dr Otero is aware about K 5.2, MD will F/U. all needs attended, bed is locked and is in the lowest position, call light within easy reach. will continue to monitor.
--- NOTE | 2019-12-15 07:46 | NUR ---
NURSE HAND-OFF REPORT: Important Events on Shift: No changes Patient Status: Stable Diet: Glucerna 1.2 55ml/hr Pending Orders: Swallow Video Test, CXR Pending Results/Labs:AM Labs Latest Vital Signs: Temperature 97.4 , Pulse 81 , B/P 110 /53 , Respiratory Rate 20 , O2 SAT 95 , Room Air, O2 Flow Rate 3 . Vital Sign Comment: VSS EKG Rhythm: SR w AVB BBB Rhythm change?: N Notified?: Ras gonzáles MD Response: Message left await call Latest Zhang Fall Score: 70 Fall Risk: High Risk Safety Measures: Call light Within Reach, Bed Alarm Zone 2, Side Rails Side Rails x3, Bed position Low and Locked. Fall Precautions: Yellow Socks Yellow Gown Patient Fall Education Report given to ELLI Sanchez.
[2019-12-15 08:00] VITALS: BP 116/53
[2019-12-15] MEDS: Eliquis 2.5mg tablet ORAL SCH ×2 (09:34→17:12)
--- NOTE | 2019-12-15 10:09 | General Progress Note ---
Assessment/Plan Assessment/Plan: anemia AMS dysphagia DM h/o colon ca RI s/p PEG GTF anemia work up fu labs Subjective ROS Limited/Unobtainable: No Allergies: Coded Allergies: ATENOLOL (Verified Allergy, Unknown, 05/23/16) LOSARTAN (Verified Allergy, Unknown, 05/23/16) SIMVASTATIN (Verified Allergy, Unknown, 05/23/16) Uncoded Allergies: AMLIODIPINE (Allergy, Unknown, 05/23/16) PENICILLIN (Allergy, Unknown, 12/03/19) Tolerated Ceftriaxone on 12/02/19 Objective Last 24 Hour Vital Signs Date Time Temp Pulse Resp B/P (MAP) Pulse Ox O2 Delivery O2 Flow Rate FiO2 12/15/19 08:00 96.8 73 20 116/53 (74) 95 12/15/19 04:00 104 12/15/19 04:00 97.4 81 20 110/53 (72) 95 12/15/19 00:00 97.7 75 20 107/52 (70) 97 12/15/19 00:00 79 12/14/19 20:00 97.0 75 20 120/54 (76) 94 12/14/19 20:00 77 12/14/19 18:30 100/55 (70) 12/14/19 16:00 76 12/14/19 15:57 98.8 72 18 89/47 (61) 94 12/14/19 12:00 98.9 75 19 115/42 (66) 99 12/14/19 12:00 72 Intake and Output 12/14/19 12/15/19 19:00 07:00 Intake Total 925 ml 255 ml Output Total 450 ml Balance 925 ml -195 ml Intake Free Water 330 ml 200 ml IV Total 100 ml Tube Feeding 495 ml 55 ml Output Urine Total 450 ml # Bowel Movements 1 1 Laboratory Tests 12/14/19 16:18: POC Whole Blood Glucose 170H 12/15/19 05:20: White Blood Count 13.7H, Red Blood Count 3.45L, Hemoglobin 9.2L, Hematocrit 30.2L, Mean Corpuscular Volume 88, Mean Corpuscular Hemoglobin 26.7L, Mean Corpuscular Hemoglobin Concent 30.5L, Red Cell Distribution Width 13.5, Platelet Count 464H, Mean Platelet Volume 5.2L, Neutrophils (%) (Auto) , Lymphocytes (%) (Auto) , Monocytes (%) (Auto) , Eosinophils (%) (Auto) , Basophils (%) (Auto) , Erythrocyte Sedimentation Rate 97H, Sodium Level 151H, Potassium Level 5.2H, Chloride Level 112H, Carbon Dioxide Level 33H, Anion Gap 6 , Blood Urea Nitrogen 62H, Creatinine 1.4H, Estimat Glomerular Filtration Rate 47.8, Glucose Level 192H, Calcium Level 8.2L, Phosphorus Level 3.4, Magnesium Level 2.4, Total Bilirubin 0.3, Aspartate Amino Transf (AST/SGOT) 28, Alanine Aminotransferase (ALT/SGPT) 42, Alkaline Phosphatase 87, C-Reactive Protein, Quantitative 9.4H, Total Protein 6.2L, Albumin 2.0L, Globulin 4.2, Albumin/ Globulin Ratio 0.5L Height (Feet): 5 Height (Inches): 6.00 Weight (Pounds): 115 General Appearance: no apparent distress EENT: normal ENT inspection Neck: supple Cardiovascular: normal rate Respiratory/Chest: decreased breath sounds Abdomen: normal bowel sounds, non tender, soft Extremities: non-tender Mamadou Johnson MD Dec 15, 2019 10:09
--- NOTE | 2019-12-15 10:40 | Diagnostic Imaging Report ---
Procedure: XRAY Chest 1v Reason for study: Reason For Exam: [id number] Comparison films: 12/11/2019. FINDINGS: A single one view chest is obtained. Vascularity is normal. The lung reece are clear bilaterally. Cardiomegaly with valvular calcifications and tortuous aorta again noted. CP angles are sharp. The bony thorax appear unremarkable. IMPRESSION: NO SIGNIFICANT CHANGE COMPARED TO PREVIOUS EXAM.
[2019-12-15] MEDS: Vancomycin oral 125mg/2.5ml GT SCH ×4 (11:07→21:42)
[2019-12-15 11:46] VITALS: BP 113/63
--- NOTE | 2019-12-15 12:16 | Pulmonology Progress Note ---
Subjective ROS Limited/Unobtainable: No Constitutional: Reports: no symptoms HEENT: Repors: no symptoms Allergies: Coded Allergies: ATENOLOL (Verified Allergy, Unknown, 05/23/16) LOSARTAN (Verified Allergy, Unknown, 05/23/16) SIMVASTATIN (Verified Allergy, Unknown, 05/23/16) Uncoded Allergies: AMLIODIPINE (Allergy, Unknown, 05/23/16) PENICILLIN (Allergy, Unknown, 12/03/19) Tolerated Ceftriaxone on 12/02/19 Objective Last 24 Hour Vital Signs Date Time Temp Pulse Resp B/P (MAP) Pulse Ox O2 Delivery O2 Flow Rate FiO2 12/15/19 11:46 96.9 78 18 113/63 (80) 97 12/15/19 09:00 Room Air 12/15/19 08:33 71 12/15/19 08:00 96.8 73 20 116/53 (74) 95 12/15/19 04:00 104 12/15/19 04:00 97.4 81 20 110/53 (72) 95 12/15/19 00:00 97.7 75 20 107/52 (70) 97 12/15/19 00:00 79 12/14/19 20:00 97.0 75 20 120/54 (76) 94 12/14/19 20:00 77 12/14/19 18:30 100/55 (70) 12/14/19 16:00 76 12/14/19 15:57 98.8 72 18 89/47 (61) 94 Intake and Output 12/14/19 12/15/19 19:00 07:00 Intake Total 925 ml 255 ml Output Total 450 ml Balance 925 ml -195 ml Intake Free Water 330 ml 200 ml IV Total 100 ml Tube Feeding 495 ml 55 ml Output Urine Total 450 ml # Bowel Movements 1 1 General Appearance: cachetic HEENT: normocephalic, atraumatic Respiratory: chest wall non-tender, lungs clear Cardiovascular: normal peripheral pulses Abdomen: normal bowel sounds, soft, non tender Extremities: no cyanosis Skin: no ulcers Neurologic: no motor/sensory deficits Lymphatic: no neck adenopathy Laboratory Tests 12/14/19 16:18: POC Whole Blood Glucose 170H 12/15/19 05:20: White Blood Count 13.7H, Red Blood Count 3.45L, Hemoglobin 9.2L, Hematocrit 30.2L, Mean Corpuscular Volume 88, Mean Corpuscular Hemoglobin 26.7L, Mean Corpuscular Hemoglobin Concent 30.5L, Red Cell Distribution Width 13.5, Platelet Count 464H, Mean Platelet Volume 5.2L, Neutrophils (%) (Auto) , Lymphocytes (%) (Auto) , Monocytes (%) (Auto) , Eosinophils (%) (Auto) , Basophils (%) (Auto) , Erythrocyte Sedimentation Rate 97H, Sodium Level 151H, Potassium Level 5.2H, Chloride Level 112H, Carbon Dioxide Level 33H, Anion Gap 6 , Blood Urea Nitrogen 62H, Creatinine 1.4H, Estimat Glomerular Filtration Rate 47.8, Glucose Level 192H, Calcium Level 8.2L, Phosphorus Level 3.4, Magnesium Level 2.4, Total Bilirubin 0.3, Aspartate Amino Transf (AST/SGOT) 28, Alanine Aminotransferase (ALT/SGPT) 42, Alkaline Phosphatase 87, C-Reactive Protein, Quantitative 9.4H, Total Protein 6.2L, Albumin 2.0L, Globulin 4.2, Albumin/ Globulin Ratio 0.5L Current Medications Medications (Trade) Dose Ordered Sig/James Route PRN Reason Start Time Stop Time Status Last Admin Dose Admin Acetaminophen (Tylenol) 650 mg Q4H PRN ORAL fever 12/03/19 18:48 01/02/20 18:47 Apixaban (Eliquis) 2.5 mg BID ORAL 12/05/19 09:00 03/04/20 08:59 12/15/19 09:34 Barium Sulfate (Varibar Honey) 250 ml NOW PRN MC RAD 12/12/19 13:15 12/15/19 13:05 Barium Sulfate (Varibar [place]) 240 ml NOW PRN MC RAD 12/12/19 13:15 12/15/19 13:05 Barium Sulfate (Varibar Pudding) 230 ml NOW PRN MC RAD 12/12/19 13:15 12/15/19 13:05 Barium Sulfate (Varibar Thin Liquid powder) 148 gm NOW PRN MC RAD 12/12/19 13:15 12/15/19 13:05 Clonidine HCl (Catapres Tab) 0.1 mg Q4H PRN ORAL For High Blood Pressure 12/03/19 19:15 03/01/20 19:14 Dextrose (Dextrose 50%) 25 ml Q30M PRN IV Hypoglycemia 12/03/19 18:45 03/01/20 19:14 Dextrose (Dextrose 50%) 50 ml Q30M PRN IV Hypoglycemia 12/03/19 18:45 03/01/20 19:14 Escitalopram Oxalate (Lexapro) 10 mg DAILY ORAL 12/04/19 09:00 01/02/20 08:59 12/15/19 09:34 Folic Acid (Folate) 2 mg DAILY NG 12/05/19 09:00 01/04/20 08:59 12/15/19 09:33 Insulin Aspart (NovoLOG) BEFORE MEALS AND HS SUBQ 12/03/19 21:00 03/01/20 20:59 12/15/19 12:09 Lansoprazole (Prevacid) 30 mg DAILY GT 12/10/19 09:00 01/09/20 08:59 12/15/19 09:34 Metronidazole 100 ml @ 100 mls/hr Q8HR IVPB 12/14/19 15:30 12/21/19 15:29 12/15/19 06:14 Nitroglycerin (Ntg) 0.4 mg Q5M X 3 DOSES PRN SL Prn Chest Pain 12/03/19 18:45 01/01/20 19:14 Ondansetron HCl (Zofran) 4 mg Q6H PRN IVP Nausea & Vomiting 12/03/19 19:15 01/01/20 19:14 Polyethylene Glycol (Miralax) 17 gm BEDTIME ORAL 12/06/19 21:00 01/05/20 20:59 12/10/19 21:34 Promethazine HCl/ Codeine (Phenergan with Codeine) 5 ml Q4H PRN ORAL For Cough 12/03/19 19:15 01/01/20 19:14 Vancomycin HCl (Firvanq) 125 mg FOUR TIMES A DAY GT 12/15/19 11:00 12/22/19 10:59 12/15/19 11:07 Assessment/Plan Problems: (1) Altered level of consciousness (2) UTI (urinary tract infection) (3) Severe protein-calorie malnutrition (4) History of diabetes mellitus (5) History of hypertension (6) Alzheimer's dementia (7) Unilateral weakness (8) Subdural hematoma (9) Colon cancer Assessment/Plan all reviewed no new com [place] looks [place] usual chronically ill self cxr reviewed 12/14: no acute changes Urine has GNB, MDR Klebsiella Abx as per ID: flagyl and Vancomycin f/u electrolytes swallow study reviewed. swallow evaluation pending Neurology note appreciated Cherelle Vera MD Dec 15, 2019 12:16
--- NOTE | 2019-12-15 14:12 | Nephrology Progress Note ---
Assessment/Plan Problem List: (1) FRANKY (acute kidney injury) (2) Anemia (3) Severe protein-calorie malnutrition (4) Alzheimer's dementia (5) UTI (urinary tract infection) (6) Acute dehydration Assessment Acute on chronic renal failure. Previous admission patient was discharged on serum creatinine of 1.6. Severe malnutrition. Encephalopathy toxic metabolic. Evidence of UTI. Multi-infarct brain disease. Diabetes mellitus Hypertension History of colon cancer Alzheimer's retirement resident Full code Plan December 14: Lab reviewed. Sodium elevated. Potassium 5.2. Creatinine 1.4. Will initiate hydration and recheck renal parameters and electrolytes tomorrow December 13: Lab reviewed.Serum creatinine normal. Continue current management. December 11: Lab reviewed. Serum creatinine normalized. Continue per current management. Continue to monitor renal parameters. December 10: Labs reviewed. Creatinine higher. Albumin 5% bolus of 500 cc ordered. Urine studies ordered. Continue to monitor renal parameters. Per orders. December 09: Lab reviewed. Patient has PEG. Stable from renal standpoint of view. Serum creatinine 1.5 December 08: Labs are reviewed. Stable from renal standpoint. December 07: No chemistry panel done today. Will check labs tomorrow. Stable from renal standpoint of view December 06: Renal parameters stable. DC IV fluid. Continue per consultants. December 05: Renal parameters improving. Continue IV fluid. Continue to monitor renal parameters and electrolytes. Medication list reviewed. Abnormal electrolyte addressed. December 04: Serum creatinine improving. IV fluid changed to D5W 30 cc an hour. Feeding through NG tube is in process. Continue to monitor electrolytes and renal parameters. December 03: Late note entry due to system problem at the [facility] today. Serum creatinine improving. Folic acid supplement given. Continue to monitor renal parameters Slow hydrate Monitor renal parameters urine output Antibiotics Avoid nephrotoxic's Per consultants Improve nutritional status as possible Subjective ROS Limited/Unobtainable: Yes Objective Objective Last 24 Hour Vital Signs Date Time Temp Pulse Resp B/P (MAP) Pulse Ox O2 Delivery O2 Flow Rate FiO2 12/15/19 11:46 96.9 78 18 113/63 (80) 97 12/15/19 09:00 Room Air 12/15/19 08:33 71 12/15/19 08:00 96.8 73 20 116/53 (74) 95 12/15/19 04:00 104 12/15/19 04:00 97.4 81 20 110/53 (72) 95 12/15/19 00:00 97.7 75 20 107/52 (70) 97 12/15/19 00:00 79 12/14/19 20:00 97.0 75 20 120/54 (76) 94 12/14/19 20:00 77 12/14/19 18:30 100/55 (70) 12/14/19 16:00 76 12/14/19 15:57 98.8 72 18 89/47 (61) 94 Intake and Output 12/14/19 12/15/19 19:00 07:00 Intake Total 925 ml 255 ml Output Total 450 ml Balance 925 ml -195 ml Intake Free Water 330 ml 200 ml IV Total 100 ml Tube Feeding 495 ml 55 ml Output Urine Total 450 ml # Bowel Movements 1 1 Laboratory Tests 12/14/19 16:18: POC Whole Blood Glucose 170H 12/15/19 05:20: White Blood Count 13.7H, Red Blood Count 3.45L, Hemoglobin 9.2L, Hematocrit 30.2L, Mean Corpuscular Volume 88, Mean Corpuscular Hemoglobin 26.7L, Mean Corpuscular Hemoglobin Concent 30.5L, Red Cell Distribution Width 13.5, Platelet Count 464H, Mean Platelet Volume 5.2L, Neutrophils (%) (Auto) , Lymphocytes (%) (Auto) , Monocytes (%) (Auto) , Eosinophils (%) (Auto) , Basophils (%) (Auto) , Erythrocyte Sedimentation Rate 97H, Sodium Level 151H, Potassium Level 5.2H, Chloride Level 112H, Carbon Dioxide Level 33H, Anion Gap 6 , Blood Urea Nitrogen 62H, Creatinine 1.4H, Estimat Glomerular Filtration Rate 47.8, Glucose Level 192H, Calcium Level 8.2L, Phosphorus Level 3.4, Magnesium Level 2.4, Total Bilirubin 0.3, Aspartate Amino Transf (AST/SGOT) 28, Alanine Aminotransferase (ALT/SGPT) 42, Alkaline Phosphatase 87, C-Reactive Protein, Quantitative 9.4H, Total Protein 6.2L, Albumin 2.0L, Globulin 4.2, Albumin/ Globulin Ratio 0.5L Height (Feet): 5 Height (Inches): 6.00 Weight (Pounds): 115 General Appearance: no apparent distress Cardiovascular: normal rate Respiratory/Chest: decreased breath sounds Abdomen: soft Objective No change Fouladian,Vin MD Dec 15, 2019 14:12
[2019-12-15 16:00] VITALS: BP 103/50
--- NOTE | 2019-12-15 16:22 | NUR ---
NURSE NOTES: pt has diarrhea x2, Dr Vera is aware and ordered to cancel Miralax, noted and carried out. wound treatment done as order and pt tolerate well. will continue to monitor.
--- NOTE | 2019-12-15 16:24 | Surgery Progress Note ---
Surgery Progress Note Subjective Additional Comments leukocytosis worsening labs Objective Last 24 Hour Vital Signs Date Time Temp Pulse Resp B/P (MAP) Pulse Ox O2 Delivery O2 Flow Rate FiO2 12/15/19 16:00 97.9 93 20 103/50 (67) 96 12/15/19 12:00 80 12/15/19 11:46 96.9 78 18 113/63 (80) 97 12/15/19 09:00 Room Air 12/15/19 08:33 71 12/15/19 08:00 96.8 73 20 116/53 (74) 95 12/15/19 04:00 104 12/15/19 04:00 97.4 81 20 110/53 (72) 95 12/15/19 00:00 97.7 75 20 107/52 (70) 97 12/15/19 00:00 79 12/14/19 20:00 97.0 75 20 120/54 (76) 94 12/14/19 20:00 77 12/14/19 18:30 100/55 (70) I&O Intake and Output 12/14/19 12/15/19 19:00 07:00 Intake Total 925 ml 310 ml Output Total 450 ml Balance 925 ml -140 ml Intake Free Water 330 ml 200 ml IV Total 100 ml Tube Feeding 495 ml 110 ml Output Urine Total 450 ml # Bowel Movements 1 1 Dressing: saturated Cardiovascular: RSR Respiratory: decreased breath sounds Abdomen: soft, non-tender, present bowel sounds Extremities: no tenderness, no cyanosis Laboratory Tests Test 12/15/19 05:20 White Blood Count 13.7 K/UL (4.8-10.8) H Red Blood Count 3.45 M/UL (4.70-6.10) L Hemoglobin 9.2 G/DL (14.2-18.0) L Hematocrit 30.2 % (42.0-52.0) L Mean Corpuscular Volume 88 FL (80-99) Mean Corpuscular Hemoglobin 26.7 PG (27.0-31.0) L Mean Corpuscular Hemoglobin Concent 30.5 G/DL (32.0-36.0) L Red Cell Distribution Width 13.5 % (11.6-14.8) Platelet Count 464 K/UL (150-450) H Mean Platelet Volume 5.2 FL (6.5-10.1) L Neutrophils (%) (Auto) % (45.0-75.0) Lymphocytes (%) (Auto) % (20.0-45.0) Monocytes (%) (Auto) % (1.0-10.0) Eosinophils (%) (Auto) % (0.0-3.0) Basophils (%) (Auto) % (0.0-2.0) Erythrocyte Sedimentation Rate 97 MM/HR (0-20) H Sodium Level 151 MMOL/L (136-145) H Potassium Level 5.2 MMOL/L (3.5-5.1) H Chloride Level 112 MMOL/L (98-107) H Carbon Dioxide Level 33 MMOL/L (21-32) H Anion Gap 6 mmol/L (5-15) Blood Urea Nitrogen 62 mg/dL (7-18) H Creatinine 1.4 MG/DL (0.55-1.30) H Estimat Glomerular Filtration Rate 47.8 mL/min (>60) Glucose Level 192 MG/DL (74-106) H Calcium Level 8.2 MG/DL (8.5-10.1) L Phosphorus Level 3.4 MG/DL (2.5-4.9) Magnesium Level 2.4 MG/DL (1.8-2.4) Total Bilirubin 0.3 MG/DL (0.2-1.0) Aspartate Amino Transf (AST/SGOT) 28 U/L (15-37) Alanine Aminotransferase (ALT/SGPT) 42 U/L (12-78) Alkaline Phosphatase 87 U/L (46-116) C-Reactive Protein, Quantitative 9.4 mg/dL (0.00-0.90) H Total Protein 6.2 G/DL (6.4-8.2) L Albumin 2.0 G/DL (3.4-5.0) L Globulin 4.2 g/dL Albumin/Globulin Ratio 0.5 (1.0-2.7) L Plan Problems: (1) History of diabetes mellitus (2) History of hypertension (3) Alzheimer's dementia (4) UTI (urinary tract infection) (5) Unilateral weakness (6) Acute dehydration (7) Altered level of consciousness (8) Subdural hematoma (9) Colon cancer Assessment & Plan: Exam is limited due to patient being contracted. No evidence of acute fracture. No dislocation. The joint spaces are preserved. There is some edema of the right buttock region subcutaneous fat, but no evidence of soft tissue contusion demonstrated. No evidence of pelvic fracture. The rectum is distended by dense stool. There is a Vela catheter within the bladder. A small amount of urine within the bladder despite Vela catheter. There are colonic diverticula. Impression: No evidence of acute bony trauma or significant soft tissue trauma Rectal fecal impaction Colonic diverticulosis (10) Severe protein-calorie malnutrition Assessment & Plan: planned PEG s/p peg tf as tolerated DAILY ESTIMATED NEEDS: Needs based on Underweight, wasting, wound 40kg 30-35 kcals/kg 5686-4037 total kcals 1.25-2 g protein/kg 50-80 g total protein 25-30ml/kcal mL/kg 4865-8934 total fluid mLs NUTRITION DIAGNOSIS: Increased kcal and pro needs r/t underweight status as evidenced by low BMI, moderate to severe generalized wasting, w/ multiple areas of skin compromise, DTI x4. CURRENT DIET: NPO ENTERAL NUTRITION RECOMMENDATIONS: Glucerna 1.2 goal of 45ml/hr x24 hrs to provide 1080ml, 1296 kcal, 65g pro, 869ml free h2O - Obtain GI access, initiate Glucerna 1.2 @25ml/hr for 6 hrs - Advance as tolerated 10ml/hr q4-6 hrs to goal - Flush per MD/ HOB over 30 degrees ------ ADDITIONAL RECOMMENDATIONS: 1) W/ poor po intake, add Ensure TID -> not appropriate for oral po W/ elevated BG rec Glucerna TID-> not appropriate for oral po 2) Add FRANCISCA BID -> f/up w WC eval 3) TABLE GAMES DUAL RATE SUPERVISOR eval for texture, need for non oral feeds-> S/p TABLE GAMES DUAL RATE SUPERVISOR eval, not appropriate for oral diet, TF recs as above 4) Calibrated bed scale wts daily 5) Monitor lytes w/ TF, replete as needed ACUTE: ALOC x2 days with right side paralysis, CVA, intracranial bleed, seizure , postictal state, major electrolyte abnormality, severe sepsis, Acute dehydration. H/O: subdural hematoma, colon cancer status post treatment, HTN, Syncope and collapse, anemia, DM2, Alzheimer Dementia, CKD, severe protein-calorie malnutrition, hyperlipidemia, vitamin B12 deficiency, muscle wasting, lack of coordination. POLST: Not in chart. RELEVANT MEDS: Albuterol (SOB); Zofran (Nausea); Restoril (insomnia). VITALS ON 2L NASAL CANNULA: HR: 67; RR: 19; SP02 100% PLOF: Pt consumed mechanical soft with thin liquids [facility] at [facility]. Pt seen at bedside appears frail and weak. Pt able to open eye to verbal communication. Pt noted with copious, thick phlegm and debris in BOT and throughout oral cavity. Pt provided oral moisturizer and thorough oral care with Yankauer suction, removing thick phlegm, mildly improved verbal communication s/p oral care. Pt able to nod head yes when asked if Pt gets thickened liquids. 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 Pt given PO trial of nectar thick liquid teaspoons. Oral phase characterized by functional labial seal, poor bolus control resulting in suspected premature posterior spillage and subsequent suspected silent aspiration given laryngeal elevation was not well appreciated upon palpation despite verbal and tactile cues to Pt's larynx to initiate swallow; no swallow initiated. Pt did not cough or attempt to clear trial. Pt was able to eventually initiate a swallow with a 20 second delay, laryngeal elevation incomplete in feel upon palpation. Pt is a high risk for silent aspiration, would benefit from MBSS in future ( will monitor Pt's candidacy, not appropriate to participate in MBSS at this time ). RECOMMENDATIONS: 1. NPO with nutrition, hydration, and meds via NGT (12 Hungarian). 2. Please provide oral care BID 3. Dysphagia therapy 3-5x per week x1 week. 4. Will monitor Pts appropriateness to participate in MBSS. 5. Pt would benefit from Speech, Language, and Cognitive communication evaluation given s/p lacunar infarcts. (11) Decubitus skin ulcer Assessment & Plan: Pt presented on admission with multiple Pressure injuries. Reabsorbing DTPI L Elbow. Base of Pressure Injury is dry and black centrally with maroon borders(L)2cm x (W)1.5cm. DTPI Sacrum (L)9.5cm x (W)11.5cm. Base of Pressure Injury is indurated purpuric with surrounding maroon borders. Pt verbalized tenderness when affected site minimally palpated. DTPI R Ischium(L)8cm x (W)9.5cm. Base of pressure injury is purpuric with maroon borders. Tender when minimally palpated. DTPI L trochanter(L)4cm x (W)3.2cm. Base of injury is purpuric with surrounding Maroon borders. Tender when minimally palpated. DTPI L Ischium (L)7cm x (W)5.4cm.Base of Injury is black with marginal erythema . Tender when minimally palpated. R Heel is boggy with non-blanchable erythema (L)3cm x (W)3.5cm. L Heel is boggy with non-Blanchable erythema(L)5cm x (W)3.5cm. L 1st metatarsal erythematous,tip is fluctuant. Pt complained tender when minimally palpated. No elevation in skin temp noted. Dry scab noted to dorsal L 2nd metatarsal. Tx.Plan: Apply Moisture Barrier Paste to Sacrum and bilat ischial tuberosities. Cover each site with Optifoam drsgs. Change every 3 days and prn. Apply Cavilon Skin Barrier to R and L trochanter. Cover each site with Optifoam drsgs. Change every 7 days and prn Apply Cavilon Skin Barrier to L and R elbows. Cover each site with Optifoam drsgs. Change every 7 days and prn. Apply Cavilon Skin Barrier to both heels and Malleoli. Cover each site with Optifoam drsgs. Change every 7 days and prn. Apply Cavilon Skin Barrier to bony prominences and cover with Optifoam drsgs as needed. Reposition at least every 2hours or as tolerated. Off-load heels with pillow. APM/KARTHIK Mattress overlay. (12) Anemia (13) FRANKY (acute kidney injury) (14) Stroke Assessment & Plan: No occlusion or significant stenosis on color flow and spectral Doppler imaging. Normal waveform. No occlusion or significant stenosis on color flow and spectral Doppler imaging. Normal waveform. Atherosclerotic changes of the left popliteal artery without hemodynamically significant stenosis. Associated, atherosclerotic changes with blunted wave form of the left anterior tibial artery. This is likely secondary to upstream stenosis of the popliteal artery. Poor visualization of the left dorsalis pedis artery. IMPRESSION: Atherosclerotic changes of the left popliteal artery without hemodynamically significant stenosis. Associated, atherosclerotic changes with blunted wave form of the left anterior tibial artery. This is likely secondary to upstream stenosis of the popliteal artery. Poor visualization of the left dorsalis pedis artery. Left common carotid artery: No occlusion or significant stenosis on color flow and spectral Doppler imaging. Normal waveform. Left subclavian artery: No occlusion or significant stenosis on color flow and spectral Doppler imaging. Normal waveform. Left axillary artery: No occlusion or significant stenosis on color flow and spectral Doppler imaging. Normal waveform. Left brachial artery: No occlusion or significant stenosis on color flow and spectral Doppler imaging. Normal waveform. Left radial artery: No occlusion or significant stenosis on color flow and spectral Doppler imaging. Normal waveform. Left ulnar artery: No occlusion or significant stenosis on color flow and spectral Doppler imaging. Normal waveform. Soft tissues: Unremarkable. IMPRESSION: No arterial occlusion. Normal waveforms. Patel Merrill Dec 15, 2019 16:24
--- NOTE | 2019-12-15 18:21 | Infectious Diseases Prog Note ---
Assessment/Plan Assessment: COVID19 neg x1 (12/01 rapid COVID PCR neg) Cdiff colitis -12/10 Cdif toxin a/ab + UTI, SP rx -u/a wbc tnct, nit neg, leuk +3; ucx >100k ESBL K. pna Low grade fever x1 Leukocytosis; recurrent -12/10 u/a no pyuria CXR: no acute process -12/01 Bcx NTD Probable PNA -12/04 CXR: no acute process -12/01 CXR: Obscured left hemidiaphragm, could indicate pleural fluid and/ orparenchymal consolidation/atelectasis. Correlate with clinical findings Acute encephalopathy/facial droop- Multifocal infarcts -12/08 MRI/MRA head/neck: No MRI evidence of proximal intracranial cerebrovascular insufficiency -12/01 Brain MRI wo: Multifocal infarcts the largest of which are located within the norberto left of midline as well as the left frontal lobe medially. Multifocal lacunar infarcts are noted scattered bilaterally including the cerebellar hemispheres and the left cerebellar peduncle. Age-related changes. CT head wo: Age-related atrophy and small vessel disease of aging, similar to that noted on the previous study. No acute intracranial pathology. If there is concern for etiology such as early acute lacunar infarcts, magnetic resonance imaging of the brain with diffusion-weighted sequences should be performed for follow-up FRANKY on CKD, worsened, now improvnig -REnal US: Small kidneys bilaterally. No evidence of hydronephrosis. Empty bladder with a Vela catheter. Incidental finding left renal cyst. 12/08 SP EGD/PEG placement R hip pain -R hip CT: No evidence of acute bony trauma or significant soft tissue trauma. Rectal fecal impaction. Colonic diverticulosis Dm2 HTN HLD colon CA sp treatment Alzheimer's dementia fall w/ resultant [facility] resident ([facility]) Plan: -PO Vancomycin 125mg qid #07/10-14 -12/08 SP Meropenem #7 -12/08/19 SP Vancomycin #4 -12/02 Sp Aztreonam #1 -12/01 SP Ceftriaxone x1 -f/u cx -Monitor CBC/CMP, temperatures -aspiration precautions -PEG care -Cdiff contact isolation Thank you for this consultation. Will continue to follow along with you. Discussed with RN. Subjective Allergies: Coded Allergies: ATENOLOL (Verified Allergy, Unknown, 05/23/16) LOSARTAN (Verified Allergy, Unknown, 05/23/16) SIMVASTATIN (Verified Allergy, Unknown, 05/23/16) Uncoded Allergies: AMLIODIPINE (Allergy, Unknown, 05/23/16) PENICILLIN (Allergy, Unknown, 12/03/19) Tolerated Ceftriaxone on 12/02/19 afebrile >72hrs wbc overall Objective Last 24 Hour Vital Signs Date Time Temp Pulse Resp B/P (MAP) Pulse Ox O2 Delivery O2 Flow Rate FiO2 12/15/19 16:00 97.9 93 20 103/50 (67) 96 12/15/19 15:17 95 12/15/19 12:00 80 12/15/19 11:46 96.9 78 18 113/63 (80) 97 12/15/19 09:00 Room Air 12/15/19 08:33 71 12/15/19 08:00 96.8 73 20 116/53 (74) 95 12/15/19 04:00 104 12/15/19 04:00 97.4 81 20 110/53 (72) 95 12/15/19 00:00 97.7 75 20 107/52 (70) 97 12/15/19 00:00 79 12/14/19 20:00 97.0 75 20 120/54 (76) 94 12/14/19 20:00 77 12/14/19 18:30 100/55 (70) Height (Feet): 5 Height (Inches): 6.00 Weight (Pounds): 115 General Appearance: no apparent distress Cardiovascular: normal rate Respiratory/Chest: lungs clear - ant Abdomen: normal bowel sounds, non tender, soft Extremities: no swelling Laboratory Tests Test 12/15/19 05:20 White Blood Count 13.7 K/UL (4.8-10.8) H Red Blood Count 3.45 M/UL (4.70-6.10) L Hemoglobin 9.2 G/DL (14.2-18.0) L Hematocrit 30.2 % (42.0-52.0) L Mean Corpuscular Volume 88 FL (80-99) Mean Corpuscular Hemoglobin 26.7 PG (27.0-31.0) L Mean Corpuscular Hemoglobin Concent 30.5 G/DL (32.0-36.0) L Red Cell Distribution Width 13.5 % (11.6-14.8) Platelet Count 464 K/UL (150-450) H Mean Platelet Volume 5.2 FL (6.5-10.1) L Neutrophils (%) (Auto) % (45.0-75.0) Lymphocytes (%) (Auto) % (20.0-45.0) Monocytes (%) (Auto) % (1.0-10.0) Eosinophils (%) (Auto) % (0.0-3.0) Basophils (%) (Auto) % (0.0-2.0) Erythrocyte Sedimentation Rate 97 MM/HR (0-20) H Sodium Level 151 MMOL/L (136-145) H Potassium Level 5.2 MMOL/L (3.5-5.1) H Chloride Level 112 MMOL/L (98-107) H Carbon Dioxide Level 33 MMOL/L (21-32) H Anion Gap 6 mmol/L (5-15) Blood Urea Nitrogen 62 mg/dL (7-18) H Creatinine 1.4 MG/DL (0.55-1.30) H Estimat Glomerular Filtration Rate 47.8 mL/min (>60) Glucose Level 192 MG/DL (74-106) H Calcium Level 8.2 MG/DL (8.5-10.1) L Phosphorus Level 3.4 MG/DL (2.5-4.9) Magnesium Level 2.4 MG/DL (1.8-2.4) Total Bilirubin 0.3 MG/DL (0.2-1.0) Aspartate Amino Transf (AST/SGOT) 28 U/L (15-37) Alanine Aminotransferase (ALT/SGPT) 42 U/L (12-78) Alkaline Phosphatase 87 U/L (46-116) C-Reactive Protein, Quantitative 9.4 mg/dL (0.00-0.90) H Total Protein 6.2 G/DL (6.4-8.2) L Albumin 2.0 G/DL (3.4-5.0) L Globulin 4.2 g/dL Albumin/Globulin Ratio 0.5 (1.0-2.7) L Current Medications Medications (Trade) Dose Ordered Sig/James Route PRN Reason Start Time Stop Time Status Last Admin Dose Admin Acetaminophen (Tylenol) 650 mg Q4H PRN ORAL fever 12/03/19 18:48 10/2/20 18:47 Apixaban (Eliquis) 2.5 mg BID ORAL 12/05/19 09:00 03/04/20 08:59 12/15/19 17:12 Clonidine HCl (Catapres Tab) 0.1 mg Q4H PRN ORAL For High Blood Pressure 12/03/19 19:15 03/01/20 19:14 Dextrose (Dextrose 50%) 25 ml Q30M PRN IV Hypoglycemia 12/03/19 18:45 03/01/20 19:14 Dextrose (Dextrose 50%) 50 ml Q30M PRN IV Hypoglycemia 12/03/19 18:45 03/01/20 19:14 Escitalopram Oxalate (Lexapro) 10 mg DAILY ORAL 12/04/19 09:00 01/02/20 08:59 12/15/19 09:34 Folic Acid (Folate) 2 mg DAILY NG 12/05/19 09:00 01/04/20 08:59 12/15/19 09:33 Insulin Aspart (NovoLOG) BEFORE MEALS AND HS SUBQ 12/03/19 21:00 03/01/20 20:59 12/15/19 17:13 Lansoprazole (Prevacid) 30 mg DAILY GT 12/10/19 09:00 01/09/20 08:59 12/15/19 09:34 Metronidazole 100 ml @ 100 mls/hr Q8HR IVPB 12/14/19 15:30 12/21/19 15:29 12/15/19 13:14 Nitroglycerin (Ntg) 0.4 mg Q5M X 3 DOSES PRN SL Prn Chest Pain 12/03/19 18:45 01/01/20 19:14 Ondansetron HCl (Zofran) 4 mg Q6H PRN IVP Nausea & Vomiting 12/03/19 19:15 01/01/20 19:14 Promethazine HCl/ Codeine (Phenergan with Codeine) 5 ml Q4H PRN ORAL For Cough 12/03/19 19:15 01/01/20 19:14 Vancomycin HCl (Firvanq) 125 mg FOUR TIMES A DAY GT 12/15/19 11:00 12/22/19 10:59 12/15/19 17:12 Velma Lopez M.D. Dec 15, 2019 18:21
--- NOTE | 2019-12-15 18:21 | Internal Med Progress Note ---
Subjective Date of Service: Dec 15, 2019 Physician Name MiriamDarren Attending Physician Darren Spencer MD Current Medications Medications (Trade) Dose Ordered Sig/James Route PRN Reason Start Time Stop Time Status Last Admin Dose Admin Acetaminophen (Tylenol) 650 mg Q4H PRN ORAL fever 12/03/19 18:48 01/02/20 18:47 Apixaban (Eliquis) 2.5 mg BID ORAL 12/05/19 09:00 03/04/20 08:59 12/15/19 17:12 Clonidine HCl (Catapres Tab) 0.1 mg Q4H PRN ORAL For High Blood Pressure 12/03/19 19:15 03/01/20 19:14 Dextrose (Dextrose 50%) 25 ml Q30M PRN IV Hypoglycemia 12/03/19 18:45 03/01/20 19:14 Dextrose (Dextrose 50%) 50 ml Q30M PRN IV Hypoglycemia 12/03/19 18:45 03/01/20 19:14 Escitalopram Oxalate (Lexapro) 10 mg DAILY ORAL 12/04/19 09:00 01/02/20 08:59 12/15/19 09:34 Folic Acid (Folate) 2 mg DAILY NG 12/05/19 09:00 01/04/20 08:59 12/15/19 09:33 Insulin Aspart (NovoLOG) BEFORE MEALS AND HS SUBQ 12/03/19 21:00 03/01/20 20:59 12/15/19 17:13 Lansoprazole (Prevacid) 30 mg DAILY GT 12/10/19 09:00 01/09/20 08:59 12/15/19 09:34 Nitroglycerin (Ntg) 0.4 mg Q5M X 3 DOSES PRN SL Prn Chest Pain 12/03/19 18:45 01/01/20 19:14 Ondansetron HCl (Zofran) 4 mg Q6H PRN IVP Nausea & Vomiting 12/03/19 19:15 01/01/20 19:14 Promethazine HCl/ Codeine (Phenergan with Codeine) 5 ml Q4H PRN ORAL For Cough 12/03/19 19:15 01/01/20 19:14 Vancomycin HCl (Firvanq) 125 mg FOUR TIMES A DAY GT 12/15/19 11:00 12/22/19 10:59 12/15/19 17:12 Allergies: Coded Allergies: ATENOLOL (Verified Allergy, Unknown, 05/23/16) LOSARTAN (Verified Allergy, Unknown, 05/23/16) SIMVASTATIN (Verified Allergy, Unknown, 05/23/16) Uncoded Allergies: AMLIODIPINE (Allergy, Unknown, 05/23/16) PENICILLIN (Allergy, Unknown, 12/03/19) Tolerated Ceftriaxone on 12/02/19 ROS Limited/Unobtainable: Yes Subjective 89 YO M admitted with atlered mental status. Now UTI. Cover for Int Med-DR Spencer. S/P colonoscopy/EGD 12/09/19 Objective Last Vital Signs Date Time Temp Pulse Resp B/P (MAP) Pulse Ox O2 Delivery O2 Flow Rate FiO2 12/15/19 16:00 97.9 93 20 103/50 (67) 96 12/15/19 09:00 Room Air 12/11/19 07:00 21 12/09/19 13:40 3 Laboratory Tests Test 12/15/19 05:20 White Blood Count 13.7 K/UL (4.8-10.8) H Red Blood Count 3.45 M/UL (4.70-6.10) L Hemoglobin 9.2 G/DL (14.2-18.0) L Hematocrit 30.2 % (42.0-52.0) L Mean Corpuscular Volume 88 FL (80-99) Mean Corpuscular Hemoglobin 26.7 PG (27.0-31.0) L Mean Corpuscular Hemoglobin Concent 30.5 G/DL (32.0-36.0) L Red Cell Distribution Width 13.5 % (11.6-14.8) Platelet Count 464 K/UL (150-450) H Mean Platelet Volume 5.2 FL (6.5-10.1) L Neutrophils (%) (Auto) % (45.0-75.0) Lymphocytes (%) (Auto) % (20.0-45.0) Monocytes (%) (Auto) % (1.0-10.0) Eosinophils (%) (Auto) % (0.0-3.0) Basophils (%) (Auto) % (0.0-2.0) Erythrocyte Sedimentation Rate 97 MM/HR (0-20) H Sodium Level 151 MMOL/L (136-145) H Potassium Level 5.2 MMOL/L (3.5-5.1) H Chloride Level 112 MMOL/L (98-107) H Carbon Dioxide Level 33 MMOL/L (21-32) H Anion Gap 6 mmol/L (5-15) Blood Urea Nitrogen 62 mg/dL (7-18) H Creatinine 1.4 MG/DL (0.55-1.30) H Estimat Glomerular Filtration Rate 47.8 mL/min (>60) Glucose Level 192 MG/DL (74-106) H Calcium Level 8.2 MG/DL (8.5-10.1) L Phosphorus Level 3.4 MG/DL (2.5-4.9) Magnesium Level 2.4 MG/DL (1.8-2.4) Total Bilirubin 0.3 MG/DL (0.2-1.0) Aspartate Amino Transf (AST/SGOT) 28 U/L (15-37) Alanine Aminotransferase (ALT/SGPT) 42 U/L (12-78) Alkaline Phosphatase 87 U/L (46-116) C-Reactive Protein, Quantitative 9.4 mg/dL (0.00-0.90) H Total Protein 6.2 G/DL (6.4-8.2) L Albumin 2.0 G/DL (3.4-5.0) L Globulin 4.2 g/dL Albumin/Globulin Ratio 0.5 (1.0-2.7) L Intake and Output 12/14/19 12/15/19 19:00 07:00 Intake Total 925 ml 310 ml Output Total 450 ml Balance 925 ml -140 ml Intake Free Water 330 ml 200 ml IV Total 100 ml Tube Feeding 495 ml 110 ml Output Urine Total 450 ml # Bowel Movements 1 1 Objective Objective GENERAL: open eyes more responsive, cachectic, chronic ill appearing. HEENT: Pupils equal and reactive to light, anicteric, NG tube. NECK: Supple. No JVD. LUNGS: Fair bilateral air entry. No wheezing, rhonchi. Decreased air in the bases. HEART: S1, S2. Distant heart sounds. No murmur or gallop. ABDOMEN: Soft, nondistended, nontender. No rebound tenderness. No fluid shift. : Vela cath. EXTREMITIES: No cyanosis, clubbing, or edema. Muscle atrophy to bilateral lower extremities noted. NEUROLOGIC: Cranial nerves II to XII grossly intact, motor right side is weaker than left side. RECTAL/GENITOURINARY: Refused and deferred PSYCHIATRIC: Mood and affect unable to obtain secondary to the patient's status. Assessment/Plan Assessment/Plan Assessment/Plan Assessment/Plan ASSESSMENT: 1. Acute encephalopathy, most likely secondary to toxic metabolic encephalopathy as well as acute CVA. 2. Acute ESBL Klebsiella urinary tract infection. 3. Diabetes type 2. 4. Acute kidney injury, on chronic renal insufficiency. 5. Multifocal infarction, confirmed on MRI. 6. Hypertension. 7. Dyslipidemia. 8. Colon cancer, status post resection. 9. Alzheimer dementia. 10. History of fall with subdural hematoma, resolved. 11. Severe protein-calorie malnutrition. 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 13. C. Diff colitis 14. Dysphagia PLAN: In telemetry. Follow up with laboratory and culture. Abx: oral vanco and IV flagyl; S/P Meropenem. ID consultation, Dr. Lopez, pulmonary consultation, Dr. Vera, Cardiology consultation with Dr. Beka Saleh, Nephrology consultation with Dr. Vin Otero. Code status: Full code. DVT prophylaxis: Eliquis. Tolerated Tube feeding @ 50 cc/hr. S/P endoscopy/colonoscopy/PEG 12/09/19 Darren Pineda MD Dec 15, 2019 18:21
--- NOTE | 2019-12-15 18:21 | NUR ---
Pt seen for dysphagia and cognitive linguistic tx. Pt seen sitting up in bed, somnolent, but alert enough to participate in tx. Pt has a pending VFSS order, however, was unable to complete order last Sunday. Pt seen to evaluate candidacy for VFSS as well as tx. Pt provided with oral care at this time, which pt allowed, but pt refused any any all p.o. intake, despite MAX encouragement. Pt responded "No" when asked pt to complete voluntary swallow. Pt educated on benefit of participating in dysphagia tx and VFSS. Pt agreed to complete tx next day. Pt oriented to surroundings, oriented only to self. Continue ST for dysphagia management. Pt is not appropriate for a VFSS at this time.
--- NOTE | 2019-12-15 19:12 | Cardiology Progress Note ---
Assessment/Plan Assessment/Plan 1. 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 2. Altered mental status, probably secondary to above. 3. Renal insufficiency acute on chronic. 4. Urinary tract infection. 5. History of subdural hematoma post fall. 6. B12 deficiency. 7. Diabetes mellitus. 8. Anemia. 9. Iron deficiency. 10. 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 ct neg 11 c diff 12. hypernatremia neuro recommended dapt initally but then to anticoagualtion with eliquis since only urin cx + but blood cx neg , stool c diff getting tube feeding carotid less thn 50% stenosis tele sinus no afib or svt 12/14 ct of hip right neg for fx arterial dupelx left arm and left leg were performed recently no hemodynamically sig stenosis noted na elevated is now on d5w per dr cortez recommendations on vanco po for c diff Subjective Cardiovascular: Denies: chest pain, lightheadedness, palpitations Respiratory: Denies: SOB with excertion Gastrointestinal/Abdominal: Denies: abdominal pain Genitourinary: Denies: burning Objective Last 24 Hour Vital Signs Date Time Temp Pulse Resp B/P (MAP) Pulse Ox O2 Delivery O2 Flow Rate FiO2 12/15/19 16:00 97.9 93 20 103/50 (67) 96 12/15/19 15:17 95 12/15/19 12:00 80 12/15/19 11:46 96.9 78 18 113/63 (80) 97 12/15/19 09:00 Room Air 12/15/19 08:33 71 12/15/19 08:00 96.8 73 20 116/53 (74) 95 12/15/19 04:00 104 12/15/19 04:00 97.4 81 20 110/53 (72) 95 12/15/19 00:00 97.7 75 20 107/52 (70) 97 12/15/19 00:00 79 12/14/19 20:00 97.0 75 20 120/54 (76) 94 12/14/19 20:00 77 General Appearance: no apparent distress, alert Neck: supple Cardiovascular: normal rate Respiratory/Chest: lungs clear Abdomen: normal bowel sounds, non tender, soft Extremities: no swelling Intake and Output 12/14/19 12/15/19 19:00 07:00 Intake Total 925 ml 310 ml Output Total 450 ml Balance 925 ml -140 ml Intake Free Water 330 ml 200 ml IV Total 100 ml Tube Feeding 495 ml 110 ml Output Urine Total 450 ml # Bowel Movements 1 1 Laboratory Tests Test 12/15/19 05:20 White Blood Count 13.7 K/UL (4.8-10.8) H Red Blood Count 3.45 M/UL (4.70-6.10) L Hemoglobin 9.2 G/DL (14.2-18.0) L Hematocrit 30.2 % (42.0-52.0) L Mean Corpuscular Volume 88 FL (80-99) Mean Corpuscular Hemoglobin 26.7 PG (27.0-31.0) L Mean Corpuscular Hemoglobin Concent 30.5 G/DL (32.0-36.0) L Red Cell Distribution Width 13.5 % (11.6-14.8) Platelet Count 464 K/UL (150-450) H Mean Platelet Volume 5.2 FL (6.5-10.1) L Neutrophils (%) (Auto) % (45.0-75.0) Lymphocytes (%) (Auto) % (20.0-45.0) Monocytes (%) (Auto) % (1.0-10.0) Eosinophils (%) (Auto) % (0.0-3.0) Basophils (%) (Auto) % (0.0-2.0) Erythrocyte Sedimentation Rate 97 MM/HR (0-20) H Sodium Level 151 MMOL/L (136-145) H Potassium Level 5.2 MMOL/L (3.5-5.1) H Chloride Level 112 MMOL/L (98-107) H Carbon Dioxide Level 33 MMOL/L (21-32) H Anion Gap 6 mmol/L (5-15) Blood Urea Nitrogen 62 mg/dL (7-18) H Creatinine 1.4 MG/DL (0.55-1.30) H Estimat Glomerular Filtration Rate 47.8 mL/min (>60) Glucose Level 192 MG/DL (74-106) H Calcium Level 8.2 MG/DL (8.5-10.1) L Phosphorus Level 3.4 MG/DL (2.5-4.9) Magnesium Level 2.4 MG/DL (1.8-2.4) Total Bilirubin 0.3 MG/DL (0.2-1.0) Aspartate Amino Transf (AST/SGOT) 28 U/L (15-37) Alanine Aminotransferase (ALT/SGPT) 42 U/L (12-78) Alkaline Phosphatase 87 U/L (46-116) C-Reactive Protein, Quantitative 9.4 mg/dL (0.00-0.90) H Total Protein 6.2 G/DL (6.4-8.2) L Albumin 2.0 G/DL (3.4-5.0) L Globulin 4.2 g/dL Albumin/Globulin Ratio 0.5 (1.0-2.7) L Beka Saleh MD Dec 15, 2019 19:12
--- NOTE | 2019-12-15 19:21 | NUR ---
NURSE HAND-OFF REPORT: Important Events on Shift: Patient Status: Diet: Pending Orders: Pending Results/Labs: Pending MD notification: Latest Vital Signs: Temperature 97.9 , Pulse 93 , B/P 103 /50 , Respiratory Rate 20 , O2 SAT 96 , Room Air, O2 Flow Rate 3 . Vital Sign Comment: EKG Rhythm: Sinus Rhythm Rhythm change?: N Notified?: Ras gonzáles MD Response: Message left await call Latest Zhang Fall Score: 70 Fall Risk: High Risk Safety Measures: Call light Within Reach, Bed Alarm Zone 2, Side Rails Side Rails x3, Bed position Low and Locked. Fall Precautions: Yellow Socks Yellow Gown Patient Fall Education Report given to . Pt is awake and stable. No stress noted. Endorsed plan of care.
--- NOTE | 2019-12-15 19:25 | NUR ---
NURSE NOTES: Important Events on Shift: Received report from Laura Ackerman RN. Pt had several BMs r/t C. DIFF, C. Diff isolation precautions in place. Pt in stable condition, FLACC 0, no signs or symptoms of pain or distress noted at this time. Will continue plan of care and close monitoring Patient Status: Stable Diet: Glucerna 1.2 @55ml/hr Pending Orders: None Pending Results/Labs: @0400: CRP, CBC, CMPO, mag, Phos., sed rate. Pending MD notification: none Latest Vital Signs: Temperature 97.2 , Pulse 83 , B/P 95 /60 , Respiratory Rate 18 , O2 SAT 95 , Room Air, O2 Flow Rate 3 . Vital Sign Comment: stable EKG Rhythm: Sinus Rhythm Rhythm change?: N MD Notified?:- MD Response: - Latest Hzang Fall Score: 70 Fall Risk: High Risk Safety Measures: Call light Within Reach, Bed Alarm Zone 2, Side Rails Side Rails x3, Bed position Low and Locked. Fall Precautions: YES Yellow Socks YES Yellow Gown YES Patient Fall Education YES
[2019-12-15 20:00] VITALS: BP 95/60
[2019-12-16] VITALS: BP 97/56
[2019-12-16 04:00] VITALS: BP 101/51
[2019-12-16] MEDS: NovoLOG Insulin Flexpen SUBQ SCH ×5 (06:06→23:27)
--- NOTE | 2019-12-16 06:58 | General Progress Note ---
Assessment/Plan Assessment/Plan: anemia AMS dysphagia DM h/o colon ca RI C.diff positive s/p PEG GTF po vanco dc prevacid on eliquis fu labs Subjective ROS Limited/Unobtainable: No Allergies: Coded Allergies: ATENOLOL (Verified Allergy, Unknown, 05/23/16) LOSARTAN (Verified Allergy, Unknown, 05/23/16) SIMVASTATIN (Verified Allergy, Unknown, 05/23/16) Uncoded Allergies: AMLIODIPINE (Allergy, Unknown, 05/23/16) PENICILLIN (Allergy, Unknown, 12/03/19) Tolerated Ceftriaxone on 12/02/19 Objective Last 24 Hour Vital Signs Date Time Temp Pulse Resp B/P (MAP) Pulse Ox O2 Delivery O2 Flow Rate FiO2 12/16/19 04:00 73 12/16/19 04:00 97.2 81 18 101/51 (68) 95 12/16/19 00:00 80 12/16/19 00:00 97.4 72 16 97/56 (70) 95 12/15/19 20:00 78 12/15/19 20:00 97.2 83 18 95/60 (72) 95 12/15/19 16:00 97.9 93 20 103/50 (67) 96 12/15/19 15:17 95 12/15/19 12:00 80 12/15/19 11:46 96.9 78 18 113/63 (80) 97 12/15/19 09:00 Room Air 12/15/19 08:33 71 12/15/19 08:00 96.8 73 20 116/53 (74) 95 Intake and Output 12/15/19 12/16/19 19:00 07:00 Intake Total 1860 ml Output Total 650 ml 500 ml Balance 1210 ml -500 ml Intake Free Water 100 ml IV Total 1100 ml Tube Feeding 660 ml Output Urine Total 650 ml 500 ml # Voids 1 # Bowel Movements 1 2 Laboratory Tests 12/16/19 01:02: POC Whole Blood Glucose 130H Height (Feet): 5 Height (Inches): 6.00 Weight (Pounds): 115 General Appearance: no apparent distress EENT: normal ENT inspection Neck: normal alignment Cardiovascular: normal rate Respiratory/Chest: decreased breath sounds Abdomen: hypoactive bowel sounds Mamadou Johnson MD Dec 16, 2019 06:58
--- NOTE | 2019-12-16 07:09 | NUR ---
NURSE HAND-OFF REPORT: Important Events on Shift: Diarrhea r/t C. Diff. Novolog sliding scale time changed to Q6H. Patient Status: Stable Diet: Glucerna 1.2 @ 55ml/hr Pending Orders: video swallow eval Pending Results/Labs: CRP, CBC, CMP, mag, phos, sed rate Pending MD notification: none Latest Vital Signs: Temperature 97.2 , Pulse 81 , B/P 101 /51 , Respiratory Rate 18 , O2 SAT 95 , Room Air, O2 Flow Rate 3 . Vital Sign Comment: stable EKG Rhythm: SR w/ 1st AVB Rhythm change?: N MD Notified?: N Response: - Latest Zhang Fall Score: 70 Fall Risk: High Risk Safety Measures: Call light Within Reach, Bed Alarm Zone 1, Side Rails Side Rails x3, Bed position Low and Locked. Fall Precautions: YES Yellow Socks YES Yellow Gown YES Door Sign YES Patient Fall Education YES Report to be given to Laura Ackerman RN
--- NOTE | 2019-12-16 07:30 | NUR ---
NURSE NOTES: Received pt from ELLI Moreno. pt is sleeping, pt is in RA, no SOB or acute respiratory distress noted. pt has intact iv access LFA 22G is SL. pt is on continues heart monitoring. Pt has g tube in place and working well. pt has Vela cath in place is working well. No complain of pain at this moment. all needs attended, bed is locked and is in the lowest position, call light within easy reach. will continue to monitor.
[2019-12-16 08:00] VITALS: BP 103/48
[2019-12-16] MEDS: Vancomycin oral 125mg/2.5ml GT SCH ×4 (09:00→21:01)
--- NOTE | 2019-12-16 09:00 | NUR ---
NURSE NOTES: vanco po didn't administer because it isn't available in pharmacy per pharmacist Gami.
[2019-12-16 09:06] LABS: BASOPHILS % (AUTO) 0.8 % (0.0-2.0); EOSINOPHILS % (AUTO) 1.6 % (0.0-3.0); HEMATOCRIT 26.7 % (42.0-52.0); HEMOGLOBIN 8.2 G/DL (14.2-18.0); MEAN CORPUSCULAR VOLUME 86 FL (80-99); MONOCYTES % (AUTO) 7.1 % (1.0-10.0); NEUTROPHILS % (AUTO) 82.5 % (45.0-75.0); PLATELET COUNT 398 K/UL (150-450); RED BLOOD COUNT 3.11 M/UL (4.70-6.10); RED CELL DISTRIBUTION WIDTH 13.4 % (11.6-14.8); WHITE BLOOD COUNT 9.5 K/UL (4.8-10.8)
[2019-12-16 09:25] LABS: ALBUMIN 1.8 G/DL (3.4-5.0); ALBUMIN/GLOBULIN RATIO 0.5 (1.0-2.7); BILIRUBIN,TOTAL 0.3 MG/DL (0.2-1.0); CREATININE 1.3 MG/DL (0.55-1.30); PHOSPHORUS 3.5 MG/DL (2.5-4.9); POTASSIUM 4.2 MMOL/L (3.5-5.1)
[2019-12-16] MEDS: Eliquis 2.5mg tablet ORAL SCH ×2 (09:32→18:10)
--- NOTE | 2019-12-16 10:36 | NUR ---
*-*DISCHARGE PLANNING*-* PATIENT HAS BEEN ACCEPTED BACK TO: [facility] P: [phone] [facility]. ROOM # 11.A SKILLED
--- NOTE | 2019-12-16 10:56 | Nephrology Progress Note ---
Assessment/Plan Problem List: (1) FRANKY (acute kidney injury) (2) Anemia (3) Severe protein-calorie malnutrition (4) Alzheimer's dementia (5) UTI (urinary tract infection) (6) Acute dehydration Assessment Acute on chronic renal failure. Previous admission patient was discharged on serum creatinine of 1.6. Severe malnutrition. Encephalopathy toxic metabolic. Evidence of UTI. Multi-infarct brain disease. Diabetes mellitus Hypertension History of colon cancer Alzheimer's [facility] resident Full code Plan December 15: Labs reviewed. Discussed with ELLI Sanchez who indicated that the patient has massive diarrhea from the C. difficile. Patient however is stable from renal standpoint of view. Continue per GI and ID advice. December 14: Lab reviewed. Sodium elevated. Potassium 5.2. Creatinine 1.4. Will initiate hydration and recheck renal parameters and electrolytes tomorrow December 13: Lab reviewed.Serum creatinine normal. Continue current management. December 11: Lab reviewed. Serum creatinine normalized. Continue per current management. Continue to monitor renal parameters. December 10: Labs reviewed. Creatinine higher. Albumin 5% bolus of 500 cc ordered. Urine studies ordered. Continue to monitor renal parameters. Per orders. December 09: Lab reviewed. Patient has PEG. Stable from renal standpoint of view. Serum creatinine 1.5 December 08: Labs are reviewed. Stable from renal standpoint. December 07: No chemistry panel done today. Will check labs tomorrow. Stable from renal standpoint of view December 06: Renal parameters stable. DC IV fluid. Continue per consultants. December 05: Renal parameters improving. Continue IV fluid. Continue to monitor renal parameters and electrolytes. Medication list reviewed. Abnormal electrolyte addressed. December 04: Serum creatinine improving. IV fluid changed to D5W 30 cc an hour. Feeding through NG tube is in process. Continue to monitor electrolytes and renal parameters. December 03: Late note entry due to system problem at the [facility] [place]. Serum creatinine improving. Folic acid supplement given. Continue to monitor renal parameters Slow hydrate Monitor renal parameters urine output Antibiotics Avoid nephrotoxic's Per consultants Improve nutritional status as possible Subjective ROS Limited/Unobtainable: Yes Objective Objective Last 24 Hour Vital Signs Date Time Temp Pulse Resp B/P (MAP) Pulse Ox O2 Delivery O2 Flow Rate FiO2 12/16/19 08:00 96.9 75 18 103/48 (66) 97 12/16/19 07:53 81 9/15/20 04:00 73 12/16/19 04:00 97.2 81 18 101/51 (68) 95 12/16/19 00:00 80 12/16/19 00:00 97.4 72 16 97/56 (70) 95 12/15/19 20:00 78 12/15/19 20:00 97.2 83 18 95/60 (72) 95 12/15/19 16:00 97.9 93 20 103/50 (67) 96 12/15/19 15:17 95 12/15/19 12:00 80 12/15/19 11:46 96.9 78 18 113/63 (80) 97 Intake and Output 12/15/19 12/16/19 19:00 07:00 Intake Total 1860 ml Output Total 650 ml 500 ml Balance 1210 ml -500 ml Intake Free Water 100 ml IV Total 1100 ml Tube Feeding 660 ml Output Urine Total 650 ml 500 ml # Voids 1 # Bowel Movements 1 2 Laboratory Tests 12/15/19 11:44: POC Whole Blood Glucose 183H 12/15/19 16:00: POC Whole Blood Glucose 189H 12/16/19 01:02: POC Whole Blood Glucose 130H 12/16/19 05:51: POC Whole Blood Glucose 141H 12/16/19 08:30: White Blood Count 9.5, Red Blood Count 3.11L, Hemoglobin 8.2L, Hematocrit 26.7L , Mean Corpuscular Volume 86, Mean Corpuscular Hemoglobin 26.6L, Mean Corpuscular Hemoglobin Concent 30.9L, Red Cell Distribution Width 13.4, Platelet Count 398, Mean Platelet Volume 5.1L, Neutrophils (%) (Auto) 82.5H, Lymphocytes (%) (Auto) 8.0L, Monocytes (%) (Auto) 7.1, Eosinophils (%) (Auto) 1.6, Basophils (%) (Auto) 0.8, Erythrocyte Sedimentation Rate 98H, Sodium Level 142, Potassium Level 4.2, Chloride Level 106, Carbon Dioxide Level 31, Anion Gap 5, Blood Urea Nitrogen 57H, Creatinine 1.3, Estimat Glomerular Filtration Rate 52.1, Glucose Level 180H, Calcium Level 8.0L, Phosphorus Level 3.5, Magnesium Level 2.3, Total Bilirubin 0.3, Aspartate Amino Transf (AST/SGOT) 22, Alanine Aminotransferase (ALT/SGPT) 29, Alkaline Phosphatase 68, C-Reactive Protein, Quantitative 6.9H, Total Protein 5.7L, Albumin 1.8L, Globulin 3.9, Albumin/Globulin Ratio 0.5L Height (Feet): 5 Height (Inches): 6.00 Weight (Pounds): 115 General Appearance: no apparent distress, lethargic Cardiovascular: normal rate Respiratory/Chest: decreased breath sounds Abdomen: distended Objective No change Vin Otero MD Dec 16, 2019 10:56
[2019-12-16 11:43] VITALS: BP 100/46
--- NOTE | 2019-12-16 12:34 | NUR ---
NURSE NOTES: pt has continuously diarrhea, Dr Otero is aware and ordered rectal tube, it's inserted and pt tolerated well. will continue to monitor.
--- NOTE | 2019-12-16 13:07 | NUR ---
RD ASSESSMENT & RECOMMENDATIONS SEE CARE ACTIVITY FOR COMPLETE ASSESSMENT DAILY ESTIMATED NEEDS: Needs based on Underweight, wasting, wound 40kg 30-35 kcals/kg 6117-0769 total kcals 1.25-2 g protein/kg 50-80 g total protein 25-30ml/kcal mL/kg 5659-4264 total fluid mLs NUTRITION DIAGNOSIS: Increased kcal and pro needs r/t underweight status as evidenced by low BMI, moderate to severe generalized wasting,admitted w/ multiple wounds, including DTI x 5, non-blanching erythema x2. CURRENT DIET: NPO CURRENT TF:Glucerna 1.2 @55ml/hr x24 hrs- exceeds 113% of est kcal needs PO DIET RECOMMENDATIONS: If safe for oral diet -> Liberalized Regular diet/ texture per [employer] NUTRITION RECOMMENDATIONS: Glucerna 1.2 @ 45ml/hr x24 hrs to provide 1080ml, 1296 kcal, 65g pro, 869ml free h2O - LOWER goal rate to 45ml/hr x 24 hrs not to exceed kcal needs meets 100% est kcal/prot needs - H20 flush of 110mL q 8 hrs - HOB over 30 degrees ADDITIONAL RECOMMENDATIONS: 1) Calibrated bed scale wts daily 2) Wound healing: add Vit C 500mg QD + Harsha BID 3) Monitor lytes w/ TF and now diarrhea, replete as needed 4) Monitor for readiness for oral diet 5) Monitor BGs, elev BGs >150, rec decreased TF goal rate as above Monitor need for additional hypoglycemics
--- NOTE | 2019-12-16 13:18 | Pulmonology Progress Note ---
Subjective ROS Limited/Unobtainable: Yes Constitutional: Reports: no symptoms HEENT: Repors: no symptoms Allergies: Coded Allergies: ATENOLOL (Verified Allergy, Unknown, 05/23/16) LOSARTAN (Verified Allergy, Unknown, 05/23/16) SIMVASTATIN (Verified Allergy, Unknown, 05/23/16) Uncoded Allergies: AMLIODIPINE (Allergy, Unknown, 05/23/16) PENICILLIN (Allergy, Unknown, 12/03/19) Tolerated Ceftriaxone on 12/02/19 Objective Last 24 Hour Vital Signs Date Time Temp Pulse Resp B/P (MAP) Pulse Ox O2 Delivery O2 Flow Rate FiO2 12/16/19 12:19 78 12/16/19 11:43 96.8 78 20 100/46 (64) 96 12/16/19 09:00 Room Air 12/16/19 08:00 96.9 75 18 103/48 (66) 97 12/16/19 07:53 81 12/16/19 04:00 73 12/16/19 04:00 97.2 81 18 101/51 (68) 95 12/16/19 00:00 80 12/16/19 00:00 97.4 72 16 97/56 (70) 95 12/15/19 20:00 78 12/15/19 20:00 97.2 83 18 95/60 (72) 95 12/15/19 16:00 97.9 93 20 103/50 (67) 96 12/15/19 15:17 95 Intake and Output 12/15/19 12/16/19 19:00 07:00 Intake Total 1860 ml Output Total 650 ml 500 ml Balance 1210 ml -500 ml Intake Free Water 100 ml IV Total 1100 ml Tube Feeding 660 ml Output Urine Total 650 ml 500 ml # Voids 1 # Bowel Movements 1 2 General Appearance: cachetic HEENT: normocephalic, atraumatic Respiratory: chest wall non-tender, lungs clear, stridor Cardiovascular: normal peripheral pulses Abdomen: normal bowel sounds, soft, non tender Extremities: no cyanosis Skin: no ulcers Neurologic: no motor/sensory deficits Lymphatic: no neck adenopathy Laboratory Tests 12/15/19 16:00: POC Whole Blood Glucose 189H 12/16/19 01:02: POC Whole Blood Glucose 130H 12/16/19 05:51: POC Whole Blood Glucose 141H 12/16/19 08:30: White Blood Count 9.5, Red Blood Count 3.11L, Hemoglobin 8.2L, Hematocrit 26.7L , Mean Corpuscular Volume 86, Mean Corpuscular Hemoglobin 26.6L, Mean Corpuscular Hemoglobin Concent 30.9L, Red Cell Distribution Width 13.4, Platelet Count 398, Mean Platelet Volume 5.1L, Neutrophils (%) (Auto) 82.5H, Lymphocytes (%) (Auto) 8.0L, Monocytes (%) (Auto) 7.1, Eosinophils (%) (Auto) 1.6, Basophils (%) (Auto) 0.8, Erythrocyte Sedimentation Rate 98H, Sodium Level 142, Potassium Level 4.2, Chloride Level 106, Carbon Dioxide Level 31, Anion Gap 5, Blood Urea Nitrogen 57H, Creatinine 1.3, Estimat Glomerular Filtration Rate 52.1, Glucose Level 180H, Calcium Level 8.0L, Phosphorus Level 3.5, Magnesium Level 2.3, Total Bilirubin 0.3, Aspartate Amino Transf (AST/SGOT) 22, Alanine Aminotransferase (ALT/SGPT) 29, Alkaline Phosphatase 68, C-Reactive Protein, Quantitative 6.9H, Total Protein 5.7L, Albumin 1.8L, Globulin 3.9, Albumin/Globulin Ratio 0.5L 12/16/19 11:17: POC Whole Blood Glucose 191H Current Medications Medications (Trade) Dose Ordered Sig/James Route PRN Reason Start Time Stop Time Status Last Admin Dose Admin Acetaminophen (Tylenol) 650 mg Q4H PRN ORAL fever 12/03/19 18:48 01/02/20 18:47 Apixaban (Eliquis) 2.5 mg BID ORAL 12/05/19 09:00 03/04/20 08:59 12/16/19 09:32 Clonidine HCl (Catapres Tab) 0.1 mg Q4H PRN ORAL For High Blood Pressure 12/03/19 19:15 03/01/20 19:14 Dextrose (Dextrose 50%) 25 ml Q30M PRN IV Hypoglycemia 12/03/19 18:45 03/01/20 19:14 Dextrose (Dextrose 50%) 50 ml Q30M PRN IV Hypoglycemia 12/03/19 18:45 03/01/20 19:14 Escitalopram Oxalate (Lexapro) 10 mg DAILY ORAL 12/04/19 09:00 01/02/20 08:59 12/16/19 09:33 Folic Acid (Folate) 2 mg DAILY NG 12/05/19 09:00 01/04/20 08:59 12/16/19 09:32 Insulin Aspart (NovoLOG) EVERY 6 HOURS SUBQ 12/16/19 00:00 03/01/20 20:59 12/16/19 12:07 Nitroglycerin (Ntg) 0.4 mg Q5M X 3 DOSES PRN SL Prn Chest Pain 12/03/19 18:45 01/01/20 19:14 Ondansetron HCl (Zofran) 4 mg Q6H PRN IVP Nausea & Vomiting 12/03/19 19:15 01/01/20 19:14 Promethazine HCl/ Codeine (Phenergan with Codeine) 5 ml Q4H PRN ORAL For Cough 12/03/19 19:15 01/01/20 19:14 Vancomycin HCl (Firvanq) 125 mg FOUR TIMES A DAY GT 12/15/19 11:00 12/22/19 10:59 12/15/19 21:42 Assessment/Plan Problems: (1) Altered level of consciousness (2) UTI (urinary tract infection) (3) Severe protein-calorie malnutrition (4) History of diabetes mellitus (5) History of hypertension (6) Alzheimer's dementia (7) Unilateral weakness (8) Subdural hematoma (9) Colon cancer Assessment/Plan large amount of diarrhea no new com [place] looks hs usual chronically ill self cxr reviewed 12/14: no acute changes Urine has GNB, MDR Klebsiella Abx as per ID: flagyl and Vancomycin f/u electrolytes swallow study reviewed. swallow evaluation pending Neurology note appreciated Cherelle Vera MD Dec 16, 2019 13:18
--- NOTE | 2019-12-16 14:30 | NUR ---
NURSE NOTES: Earl from nutrition called and recommended g tube feeding with rate 45 ml/hr due to diarrhea, Dr Vera is aware and ordered. noted and carried out. will continue to monitor.
--- NOTE | 2019-12-16 14:32 | NUR ---
NURSE NOTES: wound treatment done as order and pt tolerate well. will continue to monitor.
[2019-12-16 16:00] VITALS: BP 132/53
--- NOTE | 2019-12-16 16:00 | NUR ---
NURSE NOTES: pt is stable, V/S stable, no stress noted. pt has denture in a cup on bed side. iv access is intact. pt has g tube in placed and flushed. pt has rectal tube in place is working well. transferred pt to 408 bed 1, report given to ELLI Ellison. endorsed plan of care.
--- NOTE | 2019-12-16 16:30 | NUR ---
NURSE NOTES: Received report from ELLI Sanchez. Patient transferred from Telemetry patient seen in bed, AAOx1,on room air, bed bound. Breathing is even and unlabored, no SOB or acute respiratory distress noted. Patient has intact iv access LFA 22G is SL. . Patient is on continuous G-tube feeding, no residual, and tolerating well. RN aware that patient used to be on restraint but was discontinued, patient has abdominal binder for safety and to prevent pulling out [employer]. Patient has Vela cath in place anchored and draining well. No complain of pain at this moment. BEd is locked and placed in lowest position with bed alarm on. Call light within reach. Will continue to monitor Addendum: 12/16/19 at 1636 by Scot Dominguez RN Isolation precaution maintained. Patient also has rectal tube due to multiple bowel movement throughout the day, per ELLI Sanchez
--- NOTE | 2019-12-16 17:14 | Cardiology Progress Note ---
Assessment/Plan Assessment/Plan 1. 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 2. Altered mental status, probably secondary to above. 3. Renal insufficiency acute on chronic. 4. Urinary tract infection. 5. History of subdural hematoma post fall. 6. B12 deficiency. 7. Diabetes mellitus. 8. Anemia. 9. Iron deficiency. 10. 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 ct neg 11 c diff 12. hypernatremia neuro recommended dapt initally but then to anticoagualtion with eliquis since urin cx + but blood cx neg , stool c diff getting tube feeding carotid less thn 50% stenosis off tele now ct of hip right neg for fx arterial dupelx left arm and left leg were performed recently no hemodynamically sig stenosis noted na better post free water now on med surg on vanco po for c diff Subjective Cardiovascular: Denies: chest pain, lightheadedness, palpitations Respiratory: Denies: shortness of breath Gastrointestinal/Abdominal: Denies: abdominal pain Objective Last 24 Hour Vital Signs Date Time Temp Pulse Resp B/P (MAP) Pulse Ox O2 Delivery O2 Flow Rate FiO2 12/16/19 16:00 97.2 80 18 132/53 (79) 97 12/16/19 16:00 83 12/16/19 12:19 78 12/16/19 11:43 96.8 78 20 100/46 (64) 96 12/16/19 09:00 Room Air 12/16/19 08:00 96.9 75 18 103/48 (66) 97 12/16/19 07:53 81 12/16/19 04:00 73 12/16/19 04:00 97.2 81 18 101/51 (68) 95 12/16/19 00:00 80 12/16/19 00:00 97.4 72 16 97/56 (70) 95 12/15/19 20:00 78 12/15/19 20:00 97.2 83 18 95/60 (72) 95 General Appearance: no apparent distress Neck: no JVD Cardiovascular: normal rate Respiratory/Chest: lungs clear Abdomen: normal bowel sounds, non tender, soft Extremities: no swelling Intake and Output 12/15/19 12/16/19 19:00 07:00 Intake Total 1860 ml 55 ml Output Total 650 ml 500 ml Balance 1210 ml -445 ml Intake Free Water 100 ml IV Total 1100 ml Tube Feeding 660 ml 55 ml Output Urine Total 650 ml 500 ml # Voids 1 # Bowel Movements 1 2 Laboratory Tests Test 12/16/19 01:02 12/16/19 05:51 12/16/19 08:30 12/16/19 11:17 POC Whole Blood Glucose 130 MG/DL (74-106) H 141 MG/DL (74-106) H 191 MG/DL (74-106) H White Blood Count 9.5 K/UL (4.8-10.8) Red Blood Count 3.11 M/UL (4.70-6.10) L Hemoglobin 8.2 G/DL (14.2-18.0) L Hematocrit 26.7 % (42.0-52.0) L Mean Corpuscular Volume 86 FL (80-99) Mean Corpuscular Hemoglobin 26.6 PG (27.0-31.0) L Mean Corpuscular Hemoglobin Concent 30.9 G/DL (32.0-36.0) L Red Cell Distribution Width 13.4 % (11.6-14.8) Platelet Count 398 K/UL (150-450) Mean Platelet Volume 5.1 FL (6.5-10.1) L Neutrophils (%) (Auto) 82.5 % (45.0-75.0) H Lymphocytes (%) (Auto) 8.0 % (20.0-45.0) L Monocytes (%) (Auto) 7.1 % (1.0-10.0) Eosinophils (%) (Auto) 1.6 % (0.0-3.0) Basophils (%) (Auto) 0.8 % (0.0-2.0) Erythrocyte Sedimentation Rate 98 MM/HR (0-20) H Sodium Level 142 MMOL/L (136-145) Potassium Level 4.2 MMOL/L (3.5-5.1) Chloride Level 106 MMOL/L (98-107) Carbon Dioxide Level 31 MMOL/L (21-32) Anion Gap 5 mmol/L (5-15) Blood Urea Nitrogen 57 mg/dL (7-18) H Creatinine 1.3 MG/DL (0.55-1.30) Estimat Glomerular Filtration Rate 52.1 mL/min (>60) Glucose Level 180 MG/DL (74-106) H Calcium Level 8.0 MG/DL (8.5-10.1) L Phosphorus Level 3.5 MG/DL (2.5-4.9) Magnesium Level 2.3 MG/DL (1.8-2.4) Total Bilirubin 0.3 MG/DL (0.2-1.0) Aspartate Amino Transf (AST/SGOT) 22 U/L (15-37) Alanine Aminotransferase (ALT/SGPT) 29 U/L (12-78) Alkaline Phosphatase 68 U/L (46-116) C-Reactive Protein, Quantitative 6.9 mg/dL (0.00-0.90) H Total Protein 5.7 G/DL (6.4-8.2) L Albumin 1.8 G/DL (3.4-5.0) L Globulin 3.9 g/dL Albumin/Globulin Ratio 0.5 (1.0-2.7) L Beka Saleh MD Dec 16, 2019 17:14
--- NOTE | 2019-12-16 17:25 | Infectious Diseases Prog Note ---
Assessment/Plan Assessment: COVID19 neg x1 (12/01 rapid COVID PCR neg) Cdiff colitis -12/10 Cdif toxin a/ab + UTI, SP rx -u/a wbc tnct, nit neg, leuk +3; ucx >100k ESBL K. pna Low grade fever x1 Leukocytosis; recurrent- SP -12/10 u/a no pyuria CXR: no acute process -12/01 Bcx NTD Probable PNA -12/04 CXR: no acute process -12/01 CXR: Obscured left hemidiaphragm, could indicate pleural fluid and/ orparenchymal consolidation/atelectasis. Correlate with clinical findings Acute encephalopathy/facial droop- Multifocal infarcts -12/08 MRI/MRA head/neck: No MRI evidence of proximal intracranial cerebrovascular insufficiency -12/01 Brain MRI wo: Multifocal infarcts the largest of which are located within the norberto left of midline as well as the left frontal lobe medially. Multifocal lacunar infarcts are noted scattered bilaterally including the cerebellar hemispheres and the left cerebellar peduncle. Age-related changes. CT head wo: Age-related atrophy and small vessel disease of aging, similar to that noted on the previous study. No acute intracranial pathology. If there is concern for etiology such as early acute lacunar infarcts, magnetic resonance imaging of the brain with diffusion-weighted sequences should be performed for follow-up FRANKY on CKD, worsened, now improvnig -REnal US: Small kidneys bilaterally. No evidence of hydronephrosis. Empty bladder with a Vela catheter. Incidental finding left renal cyst. 12/08 SP EGD/PEG placement R hip pain -R hip CT: No evidence of acute bony trauma or significant soft tissue trauma. Rectal fecal impaction. Colonic diverticulosis Dm2 HTN HLD colon CA sp treatment Alzheimer's dementia fall w/ resultant [facility] resident ([facility]) Plan: -PO Vancomycin 125mg qid #/-14 -12/08 SP Meropenem #7 -12/08/19 SP Vancomycin #4 -12/02 Sp Aztreonam #1 -12/01 SP Ceftriaxone x1 -f/u cx -Monitor CBC/CMP, temperatures -aspiration precautions -PEG care -Cdiff contact isolation Thank you for this consultation. Will continue to follow along with you. Discussed with RN. Subjective Allergies: Coded Allergies: ATENOLOL (Verified Allergy, Unknown, 05/23/16) LOSARTAN (Verified Allergy, Unknown, 05/23/16) SIMVASTATIN (Verified Allergy, Unknown, 05/23/16) Uncoded Allergies: AMLIODIPINE (Allergy, Unknown, 05/23/16) PENICILLIN (Allergy, Unknown, 12/03/19) Tolerated Ceftriaxone on 12/02/19 afebrile leukocytosis resolved Objective Last 24 Hour Vital Signs Date Time Temp Pulse Resp B/P (MAP) Pulse Ox O2 Delivery O2 Flow Rate FiO2 12/16/19 16:00 97.2 80 18 132/53 (79) 97 12/16/19 16:00 83 12/16/19 12:19 78 12/16/19 11:43 96.8 78 20 100/46 (64) 96 12/16/19 09:00 Room Air 12/16/19 08:00 96.9 75 18 103/48 (66) 97 12/16/19 07:53 81 12/16/19 04:00 73 12/16/19 04:00 97.2 81 18 101/51 (68) 95 12/16/19 00:00 80 12/16/19 00:00 97.4 72 16 97/56 (70) 95 12/15/19 20:00 78 12/15/19 20:00 97.2 83 18 95/60 (72) 95 Height (Feet): 5 Height (Inches): 6.00 Weight (Pounds): 115 General Appearance: no apparent distress Cardiovascular: normal rate Respiratory/Chest: lungs clear - ant Abdomen: normal bowel sounds, non tender, soft Extremities: no swelling Laboratory Tests Test 12/16/19 01:02 12/16/19 05:51 12/16/19 08:30 12/16/19 11:17 POC Whole Blood Glucose 130 MG/DL (74-106) H 141 MG/DL (74-106) H 191 MG/DL (74-106) H White Blood Count 9.5 K/UL (4.8-10.8) Red Blood Count 3.11 M/UL (4.70-6.10) L Hemoglobin 8.2 G/DL (14.2-18.0) L Hematocrit 26.7 % (42.0-52.0) L Mean Corpuscular Volume 86 FL (80-99) Mean Corpuscular Hemoglobin 26.6 PG (27.0-31.0) L Mean Corpuscular Hemoglobin Concent 30.9 G/DL (32.0-36.0) L Red Cell Distribution Width 13.4 % (11.6-14.8) Platelet Count 398 K/UL (150-450) Mean Platelet Volume 5.1 FL (6.5-10.1) L Neutrophils (%) (Auto) 82.5 % (45.0-75.0) H Lymphocytes (%) (Auto) 8.0 % (20.0-45.0) L Monocytes (%) (Auto) 7.1 % (1.0-10.0) Eosinophils (%) (Auto) 1.6 % (0.0-3.0) Basophils (%) (Auto) 0.8 % (0.0-2.0) Erythrocyte Sedimentation Rate 98 MM/HR (0-20) H Sodium Level 142 MMOL/L (136-145) Potassium Level 4.2 MMOL/L (3.5-5.1) Chloride Level 106 MMOL/L (98-107) Carbon Dioxide Level 31 MMOL/L (21-32) Anion Gap 5 mmol/L (5-15) Blood Urea Nitrogen 57 mg/dL (7-18) H Creatinine 1.3 MG/DL (0.55-1.30) Estimat Glomerular Filtration Rate 52.1 mL/min (>60) Glucose Level 180 MG/DL (74-106) H Calcium Level 8.0 MG/DL (8.5-10.1) L Phosphorus Level 3.5 MG/DL (2.5-4.9) Magnesium Level 2.3 MG/DL (1.8-2.4) Total Bilirubin 0.3 MG/DL (0.2-1.0) Aspartate Amino Transf (AST/SGOT) 22 U/L (15-37) Alanine Aminotransferase (ALT/SGPT) 29 U/L (12-78) Alkaline Phosphatase 68 U/L (46-116) C-Reactive Protein, Quantitative 6.9 mg/dL (0.00-0.90) H Total Protein 5.7 G/DL (6.4-8.2) L Albumin 1.8 G/DL (3.4-5.0) L Globulin 3.9 g/dL Albumin/Globulin Ratio 0.5 (1.0-2.7) L Current Medications Medications (Trade) Dose Ordered Sig/James Route PRN Reason Start Time Stop Time Status Last Admin Dose Admin Acetaminophen (Tylenol) 650 mg Q4H PRN ORAL fever 12/03/19 18:48 01/02/20 18:47 Apixaban (Eliquis) 2.5 mg BID ORAL 12/05/19 09:00 03/04/20 08:59 12/16/19 09:32 Clonidine HCl (Catapres Tab) 0.1 mg Q4H PRN ORAL For High Blood Pressure 12/03/19 19:15 03/01/20 19:14 Dextrose (Dextrose 50%) 25 ml Q30M PRN IV Hypoglycemia 12/03/19 18:45 03/01/20 19:14 Dextrose (Dextrose 50%) 50 ml Q30M PRN IV Hypoglycemia 12/03/19 18:45 03/01/20 19:14 Escitalopram Oxalate (Lexapro) 10 mg DAILY ORAL 12/04/19 09:00 01/02/20 08:59 12/16/19 09:33 Folic Acid (Folate) 2 mg DAILY NG 12/05/19 09:00 01/04/20 08:59 12/16/19 09:32 Insulin Aspart (NovoLOG) EVERY 6 HOURS SUBQ 12/16/19 00:00 03/01/20 20:59 12/16/19 12:07 Nitroglycerin (Ntg) 0.4 mg Q5M X 3 DOSES PRN SL Prn Chest Pain 12/03/19 18:45 01/01/20 19:14 Ondansetron HCl (Zofran) 4 mg Q6H PRN IVP Nausea & Vomiting 12/03/19 19:15 01/01/20 19:14 Promethazine HCl/ Codeine (Phenergan with Codeine) 5 ml Q4H PRN ORAL For Cough 12/03/19 19:15 01/01/20 19:14 Vancomycin HCl (Firvanq) 125 mg FOUR TIMES A DAY GT 12/15/19 11:00 12/22/19 10:59 12/16/19 13:53 Velma Lopez M.D. Dec 16, 2019 17:25
--- NOTE | 2019-12-16 17:44 | Internal Med Progress Note ---
Subjective Date of Service: Dec 16, 2019 Physician Name MiriamDarren Attending Physician Darren Spencer MD Current Medications Medications (Trade) Dose Ordered Sig/James Route PRN Reason Start Time Stop Time Status Last Admin Dose Admin Acetaminophen (Tylenol) 650 mg Q4H PRN ORAL fever 12/03/19 18:48 01/02/20 18:47 Apixaban (Eliquis) 2.5 mg BID ORAL 12/05/19 09:00 03/04/20 08:59 12/16/19 09:32 Clonidine HCl (Catapres Tab) 0.1 mg Q4H PRN ORAL For High Blood Pressure 12/03/19 19:15 03/01/20 19:14 Dextrose (Dextrose 50%) 25 ml Q30M PRN IV Hypoglycemia 12/03/19 18:45 03/01/20 19:14 Dextrose (Dextrose 50%) 50 ml Q30M PRN IV Hypoglycemia 12/03/19 18:45 03/01/20 19:14 Escitalopram Oxalate (Lexapro) 10 mg DAILY ORAL 12/04/19 09:00 01/02/20 08:59 12/16/19 09:33 Folic Acid (Folate) 2 mg DAILY NG 12/05/19 09:00 01/04/20 08:59 12/16/19 09:32 Insulin Aspart (NovoLOG) EVERY 6 HOURS SUBQ 12/16/19 00:00 03/01/20 20:59 12/16/19 12:07 Nitroglycerin (Ntg) 0.4 mg Q5M X 3 DOSES PRN SL Prn Chest Pain 12/03/19 18:45 01/01/20 19:14 Ondansetron HCl (Zofran) 4 mg Q6H PRN IVP Nausea & Vomiting 12/03/19 19:15 01/01/20 19:14 Promethazine HCl/ Codeine (Phenergan with Codeine) 5 ml Q4H PRN ORAL For Cough 12/03/19 19:15 01/01/20 19:14 Vancomycin HCl (Firvanq) 125 mg FOUR TIMES A DAY GT 12/15/19 11:00 12/22/19 10:59 12/16/19 13:53 Allergies: Coded Allergies: ATENOLOL (Verified Allergy, Unknown, 05/23/16) LOSARTAN (Verified Allergy, Unknown, 05/23/16) SIMVASTATIN (Verified Allergy, Unknown, 05/23/16) Uncoded Allergies: AMLIODIPINE (Allergy, Unknown, 05/23/16) PENICILLIN (Allergy, Unknown, 12/03/19) Tolerated Ceftriaxone on 12/02/19 Subjective 89 YO M admitted with atlered mental status. Now UTI. Cover for Int Med-DR Spencer. S/P colonoscopy/EGD 12/09/19 Objective Last Vital Signs Date Time Temp Pulse Resp B/P (MAP) Pulse Ox O2 Delivery O2 Flow Rate FiO2 12/16/19 16:00 97.2 80 18 132/53 (79) 97 12/16/19 09:00 Room Air 12/11/19 07:00 21 12/09/19 13:40 3 Laboratory Tests Test 12/16/19 01:02 12/16/19 05:51 12/16/19 08:30 12/16/19 11:17 POC Whole Blood Glucose 130 MG/DL (74-106) H 141 MG/DL (74-106) H 191 MG/DL (74-106) H White Blood Count 9.5 K/UL (4.8-10.8) Red Blood Count 3.11 M/UL (4.70-6.10) L Hemoglobin 8.2 G/DL (14.2-18.0) L Hematocrit 26.7 % (42.0-52.0) L Mean Corpuscular Volume 86 FL (80-99) Mean Corpuscular Hemoglobin 26.6 PG (27.0-31.0) L Mean Corpuscular Hemoglobin Concent 30.9 G/DL (32.0-36.0) L Red Cell Distribution Width 13.4 % (11.6-14.8) Platelet Count 398 K/UL (150-450) Mean Platelet Volume 5.1 FL (6.5-10.1) L Neutrophils (%) (Auto) 82.5 % (45.0-75.0) H Lymphocytes (%) (Auto) 8.0 % (20.0-45.0) L Monocytes (%) (Auto) 7.1 % (1.0-10.0) Eosinophils (%) (Auto) 1.6 % (0.0-3.0) Basophils (%) (Auto) 0.8 % (0.0-2.0) Erythrocyte Sedimentation Rate 98 MM/HR (0-20) H Sodium Level 142 MMOL/L (136-145) Potassium Level 4.2 MMOL/L (3.5-5.1) Chloride Level 106 MMOL/L (98-107) Carbon Dioxide Level 31 MMOL/L (21-32) Anion Gap 5 mmol/L (5-15) Blood Urea Nitrogen 57 mg/dL (7-18) H Creatinine 1.3 MG/DL (0.55-1.30) Estimat Glomerular Filtration Rate 52.1 mL/min (>60) Glucose Level 180 MG/DL (74-106) H Calcium Level 8.0 MG/DL (8.5-10.1) L Phosphorus Level 3.5 MG/DL (2.5-4.9) Magnesium Level 2.3 MG/DL (1.8-2.4) Total Bilirubin 0.3 MG/DL (0.2-1.0) Aspartate Amino Transf (AST/SGOT) 22 U/L (15-37) Alanine Aminotransferase (ALT/SGPT) 29 U/L (12-78) Alkaline Phosphatase 68 U/L (46-116) C-Reactive Protein, Quantitative 6.9 mg/dL (0.00-0.90) H Total Protein 5.7 G/DL (6.4-8.2) L Albumin 1.8 G/DL (3.4-5.0) L Globulin 3.9 g/dL Albumin/Globulin Ratio 0.5 (1.0-2.7) L Intake and Output 12/15/19 12/16/19 19:00 07:00 Intake Total 1860 ml 55 ml Output Total 650 ml 500 ml Balance 1210 ml -445 ml Intake Free Water 100 ml IV Total 1100 ml Tube Feeding 660 ml 55 ml Output Urine Total 650 ml 500 ml # Voids 1 # Bowel Movements 1 2 Objective Objective GENERAL: open eyes more responsive, cachectic, chronic ill appearing. HEENT: Pupils equal and reactive to light, anicteric, NG tube. NECK: Supple. No JVD. LUNGS: Fair bilateral air entry. No wheezing, rhonchi. Decreased air in the bases. HEART: S1, S2. Distant heart sounds. No murmur or gallop. ABDOMEN: Soft, nondistended, nontender. No rebound tenderness. No fluid shift. : Vela cath. EXTREMITIES: No cyanosis, clubbing, or edema. Muscle atrophy to bilateral lower extremities noted. NEUROLOGIC: Cranial nerves II to XII grossly intact, motor right side is weaker than left side. RECTAL/GENITOURINARY: Refused and deferred PSYCHIATRIC: Mood and affect unable to obtain secondary to the patient's status. Assessment/Plan Assessment/Plan Assessment/Plan Assessment/Plan ASSESSMENT: 1. Acute encephalopathy, most likely secondary to toxic metabolic encephalopathy as well as acute CVA. 2. Acute ESBL Klebsiella urinary tract infection. 3. Diabetes type 2. 4. Acute kidney injury, on chronic renal insufficiency. 5. Multifocal infarction, confirmed on MRI. 6. Hypertension. 7. Dyslipidemia. 8. Colon cancer, status post resection. 9. Alzheimer dementia. 10. History of fall with subdural hematoma, resolved. 11. Severe protein-calorie malnutrition. 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 13. C. Diff colitis 14. Dysphagia PLAN: In telemetry. Follow up with laboratory and culture. Abx: oral vanco and IV flagyl; S/P Meropenem. ID consultation, Dr. Lopez, pulmonary consultation, Dr. Vera, Cardiology consultation with Dr. Beka Saleh, Nephrology consultation with Dr. Vin Otero. Code status: Full code. DVT prophylaxis: Eliquis. Tolerated Tube feeding @ 50 cc/hr. S/P endoscopy/colonoscopy/PEG 12/09/19 Darren Pineda MD Dec 16, 2019 17:44
--- NOTE | 2019-12-16 18:21 | Surgery Progress Note ---
Surgery Progress Note Subjective Additional Comments no acute events labs noted exam stable Objective Last 24 Hour Vital Signs Date Time Temp Pulse Resp B/P (MAP) Pulse Ox O2 Delivery O2 Flow Rate FiO2 12/16/19 16:00 97.2 80 18 132/53 (79) 97 12/16/19 16:00 83 12/16/19 12:19 78 12/16/19 11:43 96.8 78 20 100/46 (64) 96 12/16/19 09:00 Room Air 12/16/19 08:00 96.9 75 18 103/48 (66) 97 12/16/19 07:53 81 12/16/19 04:00 73 12/16/19 04:00 97.2 81 18 101/51 (68) 95 12/16/19 00:00 80 12/16/19 00:00 97.4 72 16 97/56 (70) 95 12/15/19 20:00 78 12/15/19 20:00 97.2 83 18 95/60 (72) 95 I&O Intake and Output 12/15/19 12/16/19 19:00 07:00 Intake Total 1860 ml 55 ml Output Total 650 ml 500 ml Balance 1210 ml -445 ml Intake Free Water 100 ml IV Total 1100 ml Tube Feeding 660 ml 55 ml Output Urine Total 650 ml 500 ml # Voids 1 # Bowel Movements 1 2 Cardiovascular: RSR Respiratory: decreased breath sounds Abdomen: soft, non-tender, present bowel sounds Extremities: no tenderness, no cyanosis Laboratory Tests Test 12/16/19 01:02 12/16/19 05:51 12/16/19 08:30 12/16/19 11:17 POC Whole Blood Glucose 130 MG/DL (74-106) H 141 MG/DL (74-106) H 191 MG/DL (74-106) H White Blood Count 9.5 K/UL (4.8-10.8) Red Blood Count 3.11 M/UL (4.70-6.10) L Hemoglobin 8.2 G/DL (14.2-18.0) L Hematocrit 26.7 % (42.0-52.0) L Mean Corpuscular Volume 86 FL (80-99) Mean Corpuscular Hemoglobin 26.6 PG (27.0-31.0) L Mean Corpuscular Hemoglobin Concent 30.9 G/DL (32.0-36.0) L Red Cell Distribution Width 13.4 % (11.6-14.8) Platelet Count 398 K/UL (150-450) Mean Platelet Volume 5.1 FL (6.5-10.1) L Neutrophils (%) (Auto) 82.5 % (45.0-75.0) H Lymphocytes (%) (Auto) 8.0 % (20.0-45.0) L Monocytes (%) (Auto) 7.1 % (1.0-10.0) Eosinophils (%) (Auto) 1.6 % (0.0-3.0) Basophils (%) (Auto) 0.8 % (0.0-2.0) Erythrocyte Sedimentation Rate 98 MM/HR (0-20) H Sodium Level 142 MMOL/L (136-145) Potassium Level 4.2 MMOL/L (3.5-5.1) Chloride Level 106 MMOL/L (98-107) Carbon Dioxide Level 31 MMOL/L (21-32) Anion Gap 5 mmol/L (5-15) Blood Urea Nitrogen 57 mg/dL (7-18) H Creatinine 1.3 MG/DL (0.55-1.30) Estimat Glomerular Filtration Rate 52.1 mL/min (>60) Glucose Level 180 MG/DL (74-106) H Calcium Level 8.0 MG/DL (8.5-10.1) L Phosphorus Level 3.5 MG/DL (2.5-4.9) Magnesium Level 2.3 MG/DL (1.8-2.4) Total Bilirubin 0.3 MG/DL (0.2-1.0) Aspartate Amino Transf (AST/SGOT) 22 U/L (15-37) Alanine Aminotransferase (ALT/SGPT) 29 U/L (12-78) Alkaline Phosphatase 68 U/L (46-116) C-Reactive Protein, Quantitative 6.9 mg/dL (0.00-0.90) H Total Protein 5.7 G/DL (6.4-8.2) L Albumin 1.8 G/DL (3.4-5.0) L Globulin 3.9 g/dL Albumin/Globulin Ratio 0.5 (1.0-2.7) L Plan Problems: (1) History of diabetes mellitus (2) History of hypertension (3) Alzheimer's dementia (4) UTI (urinary tract infection) (5) Unilateral weakness (6) Acute dehydration (7) Altered level of consciousness (8) Subdural hematoma (9) Colon cancer Assessment & Plan: Exam is limited due to patient being contracted. No evidence of acute fracture. No dislocation. The joint spaces are preserved. There is some edema of the right buttock region subcutaneous fat, but no evidence of soft tissue contusion demonstrated. No evidence of pelvic fracture. The rectum is distended by dense stool. There is a Vela catheter within the bladder. A small amount of urine within the bladder despite Vela catheter. There are colonic diverticula. Impression: No evidence of acute bony trauma or significant soft tissue trauma Rectal fecal impaction Colonic diverticulosis (10) Severe protein-calorie malnutrition Assessment & Plan: planned PEG s/p peg tf as tolerated DAILY ESTIMATED NEEDS: Needs based on Underweight, wasting, wound 40kg 30-35 kcals/kg 2328-9256 total kcals 1.25-2 g protein/kg 50-80 g total protein 25-30ml/kcal mL/kg 4933-4490 total fluid mLs NUTRITION DIAGNOSIS: Increased kcal and pro needs r/t underweight status as evidenced by low BMI, moderate to severe generalized wasting, w/ multiple areas of skin compromise, DTI x4. CURRENT DIET: NPO ENTERAL NUTRITION RECOMMENDATIONS: Glucerna 1.2 goal of 45ml/hr x24 hrs to provide 1080ml, 1296 kcal, 65g pro, 869ml free h2O - Obtain GI access, initiate Glucerna 1.2 @25ml/hr for 6 hrs - Advance as tolerated 10ml/hr q4-6 hrs to goal - Flush per MD/ HOB over 30 degrees ------ ADDITIONAL RECOMMENDATIONS: 1) W/ poor po intake, add Ensure TID -> not appropriate for oral po W/ elevated BG rec Glucerna TID-> not appropriate for oral po 2) Add FRANCISCA BID -> f/up w WC eval 3) PATTERN GATER eval for texture, need for non oral feeds-> S/p PATTERN GATER eval, not appropriate for oral diet, TF recs as above 4) Calibrated bed scale wts daily 5) Monitor lytes w/ TF, replete as needed ACUTE: ALOC x2 days with right side paralysis, CVA, intracranial bleed, seizure , postictal state, major electrolyte abnormality, severe sepsis, Acute dehydration. H/O: subdural hematoma, colon cancer status post treatment, HTN, Syncope and collapse, anemia, DM2, Alzheimer Dementia, CKD, severe protein-calorie malnutrition, hyperlipidemia, vitamin B12 deficiency, muscle wasting, lack of coordination. POLST: Not in chart. RELEVANT MEDS: Albuterol (SOB); Zofran (Nausea); Restoril (insomnia). VITALS ON 2L NASAL CANNULA: HR: 67; RR: 19; SP02 100% PLOF: Pt consumed mechanical soft with thin liquids [facility] at [facility]. Pt seen at bedside appears frail and weak. Pt able to open eye to verbal communication. Pt noted with copious, thick phlegm and debris in BOT and throughout oral cavity. Pt provided oral moisturizer and thorough oral care with Yankauer suction, removing thick phlegm, mildly improved verbal communication s/p oral care. Pt able to nod head yes when asked if Pt gets thickened liquids. 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 Pt given PO trial of nectar thick liquid teaspoons. Oral phase characterized by functional labial seal, poor bolus control resulting in suspected premature posterior spillage and subsequent suspected silent aspiration given laryngeal elevation was not well appreciated upon palpation despite verbal and tactile cues to Pt's larynx to initiate swallow; no swallow initiated. Pt did not cough or attempt to clear trial. Pt was able to eventually initiate a swallow with a 20 second delay, laryngeal elevation incomplete in feel upon palpation. Pt is a high risk for silent aspiration, would benefit from MBSS in future ( will monitor Pt's candidacy, not appropriate to participate in MBSS at this time ). RECOMMENDATIONS: 1. NPO with nutrition, hydration, and meds via NGT (12 Stateless). 2. Please provide oral care BID 3. Dysphagia therapy 3-5x per week x1 week. 4. Will monitor Pts appropriateness to participate in MBSS. 5. Pt would benefit from Speech, Language, and Cognitive communication evaluation given s/p lacunar infarcts. (11) Decubitus skin ulcer Assessment & Plan: Pt presented on admission with multiple Pressure injuries. Reabsorbing DTPI L Elbow. Base of Pressure Injury is dry and black centrally with maroon borders(L)2cm x (W)1.5cm. DTPI Sacrum (L)9.5cm x (W)11.5cm. Base of Pressure Injury is indurated purpuric with surrounding maroon borders. Pt verbalized tenderness when affected site minimally palpated. DTPI R Ischium(L)8cm x (W)9.5cm. Base of pressure injury is purpuric with maroon borders. Tender when minimally palpated. DTPI L trochanter(L)4cm x (W)3.2cm. Base of injury is purpuric with surrounding Maroon borders. Tender when minimally palpated. DTPI L Ischium (L)7cm x (W)5.4cm.Base of Injury is black with marginal erythema . Tender when minimally palpated. R Heel is boggy with non-blanchable erythema (L)3cm x (W)3.5cm. L Heel is boggy with non-Blanchable erythema(L)5cm x (W)3.5cm. L 1st metatarsal erythematous,tip is fluctuant. Pt complained tender when minimally palpated. No elevation in skin temp noted. Dry scab noted to dorsal L 2nd metatarsal. Tx.Plan: Apply Moisture Barrier Paste to Sacrum and bilat ischial tuberosities. Cover each site with Optifoam drsgs. Change every 3 days and prn. Apply Cavilon Skin Barrier to R and L trochanter. Cover each site with Optifoam drsgs. Change every 7 days and prn Apply Cavilon Skin Barrier to L and R elbows. Cover each site with Optifoam drsgs. Change every 7 days and prn. Apply Cavilon Skin Barrier to both heels and Malleoli. Cover each site with Optifoam drsgs. Change every 7 days and prn. Apply Cavilon Skin Barrier to bony prominences and cover with Optifoam drsgs as needed. Reposition at least every 2hours or as tolerated. Off-load heels with pillow. APM/KARTHIK Mattress overlay. (12) Anemia (13) FRANKY (acute kidney injury) (14) Stroke Assessment & Plan: No occlusion or significant stenosis on color flow and spectral Doppler imaging. Normal waveform. No occlusion or significant stenosis on color flow and spectral Doppler imaging. Normal waveform. Atherosclerotic changes of the left popliteal artery without hemodynamically significant stenosis. Associated, atherosclerotic changes with blunted wave form of the left anterior tibial artery. This is likely secondary to upstream stenosis of the popliteal artery. Poor visualization of the left dorsalis pedis artery. IMPRESSION: Atherosclerotic changes of the left popliteal artery without hemodynamically significant stenosis. Associated, atherosclerotic changes with blunted wave form of the left anterior tibial artery. This is likely secondary to upstream stenosis of the popliteal artery. Poor visualization of the left dorsalis pedis artery. Left common carotid artery: No occlusion or significant stenosis on color flow and spectral Doppler imaging. Normal waveform. Left subclavian artery: No occlusion or significant stenosis on color flow and spectral Doppler imaging. Normal waveform. Left axillary artery: No occlusion or significant stenosis on color flow and spectral Doppler imaging. Normal waveform. Left brachial artery: No occlusion or significant stenosis on color flow and spectral Doppler imaging. Normal waveform. Left radial artery: No occlusion or significant stenosis on color flow and spectral Doppler imaging. Normal waveform. Left ulnar artery: No occlusion or significant stenosis on color flow and spectral Doppler imaging. Normal waveform. Soft tissues: Unremarkable. IMPRESSION: No arterial occlusion. Normal waveforms. Patel Merrill Dec 16, 2019 18:21
--- NOTE | 2019-12-16 19:30 | NUR ---
NURSE HAND-OFF: Important Events on Shift: Transfer from Tele Patient Status: stable Diet: glucerna 1.2 Pending Orders: n/a Pending Results/Labs:n/a Pending MD notification:n/a Latest Vital Signs: Temperature 97.2 , Pulse 83 , B/P 132 /53 , Respiratory Rate 18 , O2 SAT 97 , Room Air, O2 Flow Rate 3 . Vital Sign Comment: stable Latest Zhang Fall Score: 70 Fall Risk: High Risk Safety Measures: Call light Within Reach, Bed Alarm Zone 2, Side Rails Side Rails x3, Bed position Low and Locked. Fall Precautions: Yellow Socks Yellow Gown Patient Fall Education Report given to ELLI Lunsford.
--- NOTE | 2019-12-16 19:59 | NUR ---
NURSE NOTES: Received patient in bed, alert x1, speaks and understand Tagalog, on p 200 mattress, with rectal tube in place, on g tube feeding Glucerna 1.2 at 45 cc hr continuous, patient is tolerating feeding well. Has F/C in place, secured, draining clear yellow urine. Call light is within reach, bed is lowered, locked, alarm is on, will continue to monitor for comfort and safety.
[2019-12-16 20:00] VITALS: BP 104/53
[2019-12-16 21:20] LABS: CALCIUM 8.1 MG/DL (8.5-10.1); CREATININE 1.4 MG/DL (0.55-1.30); POTASSIUM 4.1 MMOL/L (3.5-5.1)
[2019-12-17] VITALS: BP 119/60
[2019-12-17 04:00] VITALS: BP 118/59
[2019-12-17] MEDS: NovoLOG Insulin Flexpen SUBQ SCH ×4 (05:38→23:04)
[2019-12-17 06:34] LABS: HEMATOCRIT 23.8 % (42.0-52.0); HEMOGLOBIN 7.5 G/DL (14.2-18.0); MEAN CORPUSCULAR VOLUME 85 FL (80-99); PLATELET COUNT 406 K/UL (150-450); RED CELL DISTRIBUTION WIDTH 13.1 % (11.6-14.8); WHITE BLOOD COUNT 6.7 K/UL (4.8-10.8)
--- NOTE | 2019-12-17 07:11 | NUR ---
NURSE HAND-OFF: Important Events on Shift: accuchecks, am BS 160, Glucerna 1.2 at 45cc/he, rectal tube intact, hamlin cath secured, patient was turned and repositioned q 2 hrs, hygine care is provided Patient Status: stbale Diet: g tube feeding, 0 residual Pending Orders: Pending Results/Labs: Pending MD notification: Latest Vital Signs: Temperature 98.8 , Pulse 86 , B/P 118 /59 , Respiratory Rate 20 , O2 SAT 98 , Room Air, O2 Flow Rate 3 . Vital Sign Comment: Latest Zhang Fall Score: 70 Fall Risk: High Risk Safety Measures: Call light Within Reach, Bed Alarm Zone 1, Side Rails Side Rails x3, Bed position Low and Locked. Fall Precautions: Yellow Socks Yellow Gown Door Sign Patient Fall Education Report given to Macie CALLOWAY
[2019-12-17 07:16] LABS: CALCIUM 7.6 MG/DL (8.5-10.1); CREATININE 1.4 MG/DL (0.55-1.30); POTASSIUM 4.4 MMOL/L (3.5-5.1)
--- NOTE | 2019-12-17 07:56 | NUR ---
NURSE NOTES: Patient alert x1, confused, disoriented; on room air, no sing of shortness of breath or distress; no sing of chest pain; Feeding tube Glucena 1.2 running at 45cc continuos, no residual, head of the bed elevated for aspiration percussion; side rails up x2, breaks engaged, bed at lowest position, bed alarm on; Vela in place, collected yellow urine; Rectal tube in place, the bag in empty; dressings for wound dry and intact; IV Left For-arm flushes well; will keep monitoring.
[2019-12-17 08:00] VITALS: BP 106/48
--- NOTE | 2019-12-17 08:19 | General Progress Note ---
Assessment/Plan Assessment/Plan: anemia AMS dysphagia DM h/o colon ca RI C.diff positive s/p PEG GTF po vanco iv flagyl on eliquis fu labs Subjective ROS Limited/Unobtainable: No Allergies: Coded Allergies: ATENOLOL (Verified Allergy, Unknown, 05/23/16) LOSARTAN (Verified Allergy, Unknown, 05/23/16) SIMVASTATIN (Verified Allergy, Unknown, 05/23/16) Uncoded Allergies: AMLIODIPINE (Allergy, Unknown, 05/23/16) PENICILLIN (Allergy, Unknown, 12/03/19) Tolerated Ceftriaxone on 12/02/19 Objective Last 24 Hour Vital Signs Date Time Temp Pulse Resp B/P (MAP) Pulse Ox O2 Delivery O2 Flow Rate FiO2 12/17/19 04:00 98.8 86 20 118/59 (78) 98 12/17/19 00:00 98.1 86 20 119/60 (79) 98 12/16/19 20:00 98.6 82 20 104/53 (70) 96 12/16/19 16:00 97.2 80 18 132/53 (79) 97 12/16/19 16:00 83 12/16/19 12:19 78 12/16/19 11:43 96.8 78 20 100/46 (64) 96 12/16/19 09:00 Room Air Intake and Output 12/16/19 12/17/19 19:00 07:00 Intake Total 740 ml 415 ml Balance 740 ml 415 ml Intake Free Water 130 ml 100 ml Tube Feeding 610 ml 315 ml # Bowel Movements 1 Laboratory Tests 12/16/19 08:30: White Blood Count 9.5, Red Blood Count 3.11L, Hemoglobin 8.2L, Hematocrit 26.7L, Mean Corpuscular Volume 86, Mean Corpuscular Hemoglobin 26.6L, Mean Corpuscular Hemoglobin Concent 30.9L, Red Cell Distribution Width 13.4, Platelet Count 398, Mean Platelet Volume 5.1L, Neutrophils (%) (Auto) 82.5H, Lymphocytes (%) (Auto) 8.0L, Monocytes (%) (Auto) 7.1, Eosinophils (%) (Auto) 1.6, Basophils (%) (Auto) 0.8, Erythrocyte Sedimentation Rate 98H, Sodium Level 142, Potassium Level 4.2, Chloride Level 106, Carbon Dioxide Level 31, Anion Gap 5, Blood Urea Nitrogen 57H, Creatinine 1.3, Estimat Glomerular Filtration Rate 52.1, Glucose Level 180H , Calcium Level 8.0L, Phosphorus Level 3.5, Magnesium Level 2.3, Total Bilirubin 0.3, Aspartate Amino Transf (AST/SGOT) 22, Alanine Aminotransferase (ALT/SGPT) 29, Alkaline Phosphatase 68, C-Reactive Protein, Quantitative 6.9H, Total Protein 5.7L, Albumin 1.8L, Globulin 3.9, Albumin/Globulin Ratio 0.5L 12/16/19 11:17: POC Whole Blood Glucose 191H 12/16/19 21:00: Sodium Level 139, Potassium Level 4.1, Chloride Level 104, Carbon Dioxide Level 30, Anion Gap 5, Blood Urea Nitrogen 62H, Creatinine 1.4H, Estimat Glomerular Filtration Rate 47.8, Glucose Level 153H, Calcium Level 8.1L 12/17/19 05:45: White Blood Count 6.7, Red Blood Count 2.80L, Hemoglobin 7.5L, Hematocrit 23.8L, Mean Corpuscular Volume 85, Mean Corpuscular Hemoglobin 26.7L, Mean Corpuscular Hemoglobin Concent 31.3L, Red Cell Distribution Width 13.1, Platelet Count 406, Mean Platelet Volume 5.1L, Neutrophils (%) (Auto) , Lymphocytes (%) (Auto) , Monocytes (%) (Auto) , Eosinophils (%) (Auto) , Basophils (%) (Auto) , Sodium Level 147H, Potassium Level 4.4, Chloride Level 110H, Carbon Dioxide Level 29, Anion Gap 8, Blood Urea Nitrogen 59H, Creatinine 1.4H, Estimat Glomerular Filtration Rate 47.8, Glucose Level 165H, Calcium Level 7.6L Height (Feet): 5 Height (Inches): 6.00 Weight (Pounds): 115 General Appearance: no apparent distress EENT: normal ENT inspection Neck: supple Cardiovascular: normal rate Respiratory/Chest: decreased breath sounds Abdomen: normal bowel sounds, non tender, soft Extremities: non-tender Mamadou Johnson MD Dec 17, 2019 08:19
[2019-12-17] MEDS: Eliquis 2.5mg tablet ORAL SCH ×2 (09:40→17:47)
[2019-12-17] MEDS: Vancomycin oral 125mg/2.5ml GT SCH ×4 (09:48→21:08)
--- NOTE | 2019-12-17 10:37 | Nephrology Progress Note ---
Assessment/Plan Problem List: (1) FRANKY (acute kidney injury) (2) Anemia (3) Severe protein-calorie malnutrition (4) Alzheimer's dementia (5) UTI (urinary tract infection) (6) Acute dehydration Assessment Acute on chronic renal failure. Previous admission patient was discharged on serum creatinine of 1.6. Severe malnutrition. Encephalopathy toxic metabolic. Evidence of UTI. Multi-infarct brain disease. Diabetes mellitus Hypertension History of colon cancer Alzheimer's skilled nursing resident Full code Plan December 16: Labs reviewed. Stable from renal standpoint of view. Under treatment for C. difficile colitis /diarrhea. Continue per consultants. Watch hemoglobin which is gradually drifting downwards. December 15: Labs reviewed. Discussed with ELLI Sanchez who indicated that the patient has massive diarrhea from the C. difficile. Patient however is stable from renal standpoint of view. Continue per GI and ID advice. December 14: Lab reviewed. Sodium elevated. Potassium 5.2. Creatinine 1.4. Will initiate hydration and recheck renal parameters and electrolytes tomorrow December 13: Lab reviewed.Serum creatinine normal. Continue current management. December 11: Lab reviewed. Serum creatinine normalized. Continue per current management. Continue to monitor renal parameters. December 10: Labs reviewed. Creatinine higher. Albumin 5% bolus of 500 cc ordered. Urine studies ordered. Continue to monitor renal parameters. Per orders. December 09: Lab reviewed. Patient has PEG. Stable from renal standpoint of view. Serum creatinine 1.5 December 08: Labs are reviewed. Stable from renal standpoint. December 07: No chemistry panel done today. Will check labs tomorrow. Stable from renal standpoint of view December 06: Renal parameters stable. DC IV fluid. Continue per consultants. December 05: Renal parameters improving. Continue IV fluid. Continue to monitor renal parameters and electrolytes. Medication list reviewed. Abnormal electrolyte addressed. December 04: Serum creatinine improving. IV fluid changed to D5W 30 cc an hour. Feeding through NG tube is in process. Continue to monitor electrolytes and renal parameters. December 03: Late note entry due to system problem at the [facility] today. Serum creatinine improving. Folic acid supplement given. Continue to monitor renal parameters Slow hydrate Monitor renal parameters urine output Antibiotics Avoid nephrotoxic's Per consultants Improve nutritional status as possible Subjective ROS Limited/Unobtainable: Yes Objective Objective Last 24 Hour Vital Signs Date Time Temp Pulse Resp B/P (MAP) Pulse Ox O2 Delivery O2 Flow Rate FiO2 9/16/20 08:00 98.2 87 18 106/48 (67) 95 12/17/19 04:00 98.8 86 20 118/59 (78) 98 12/17/19 00:00 98.1 86 20 119/60 (79) 98 12/16/19 20:00 98.6 82 20 104/53 (70) 96 12/16/19 16:00 97.2 80 18 132/53 (79) 97 12/16/19 16:00 83 12/16/19 12:19 78 12/16/19 11:43 96.8 78 20 100/46 (64) 96 Intake and Output 0 12/16/19 12/17/19 19:00 07:00 Intake Total 740 ml 415 ml Balance 740 ml 415 ml Intake Free Water 130 ml 100 ml Tube Feeding 610 ml 315 ml # Bowel Movements 1 Laboratory Tests 12/16/19 11:17: POC Whole Blood Glucose 191H 12/16/19 21:00: Sodium Level 139, Potassium Level 4.1, Chloride Level 104, Carbon Dioxide Level 30, Anion Gap 5, Blood Urea Nitrogen 62H, Creatinine 1.4H, Estimat Glomerular Filtration Rate 47.8, Glucose Level 153H, Calcium Level 8.1L 12/17/19 05:45: Sodium Level 147H, Potassium Level 4.4, Chloride Level 110H, Carbon Dioxide Level 29, Anion Gap 8, Blood Urea Nitrogen 59H, Creatinine 1.4H, Estimat Glomerular Filtration Rate 47.8, Glucose Level 165H, Calcium Level 7.6L, White Blood Count 6.7, Red Blood Count 2.80L, Hemoglobin 7.5L, Hematocrit 23.8L, Mean Corpuscular Volume 85, Mean Corpuscular Hemoglobin 26.7L, Mean Corpuscular Hemoglobin Concent 31.3L, Red Cell Distribution Width 13.1, Platelet Count 406, Mean Platelet Volume 5.1L, Neutrophils (%) (Auto) , Lymphocytes (%) (Auto) , Monocytes (%) (Auto) , Eosinophils (%) (Auto) , Basophils (%) (Auto) Height (Feet): 5 Height (Inches): 6.00 Weight (Pounds): 115 General Appearance: no apparent distress, lethargic Cardiovascular: normal rate Respiratory/Chest: decreased breath sounds Abdomen: soft, distended Objective No change Fouladian,Vin MD Dec 17, 2019 10:37
--- NOTE | 2019-12-17 10:48 | NUR ---
CASE MANAGEMENT:REVIEW SI;ANEMIA. C-DIFF POSITIVE. DM. 98.8 86 20 132/53 95% ON RA H/H 7.5/23.8 NA 147 BUN 59 CR 1.4 BG 165 CA 7.6 IS;VANCOMYCIN GT QID ELIQUIS GT VID LEXAPRO GT QD INSULIN NOVOLOG SUBQ Q6 MED SURG STATUS DCP;FROM [facility]
[2019-12-17 12:00] VITALS: BP 110/53
--- NOTE | 2019-12-17 12:36 | Infectious Diseases Prog Note ---
Assessment/Plan Assessment: COVID19 neg x1 (12/01 rapid COVID PCR neg) Cdiff colitis -12/10 Cdif toxin a/ab + UTI, SP rx -u/a wbc tnct, nit neg, leuk +3; ucx >100k ESBL K. pna Low grade fever x1 Leukocytosis; recurrent- SP -12/10 u/a no pyuria CXR: no acute process -12/01 Bcx NTD Probable PNA -12/04 CXR: no acute process -12/01 CXR: Obscured left hemidiaphragm, could indicate pleural fluid and/orparenchymal consolidation/atelectasis. Correlate with clinical findings Acute encephalopathy/facial droop- Multifocal infarcts -12/08 MRI/MRA head/neck: No MRI evidence of proximal intracranial cerebrovascular insufficiency -12/01 Brain MRI wo: Multifocal infarcts the largest of which are located within the norberto left of midline as well as the left frontal lobe medially. Multifocal lacunar infarcts are noted scattered bilaterally including the cerebellar hemispheres and the left cerebellar peduncle. Age-related changes. CT head wo: Age-related atrophy and small vessel disease of aging, similar to that noted on the previous study. No acute intracranial pathology. If there is concern for etiology such as early acute lacunar infarcts, magnetic resonance imaging of the brain with diffusion-weighted sequences should be performed for follow-up FRANKY on CKD, worsened, now improvnig -REnal US: Small kidneys bilaterally. No evidence of hydronephrosis. Empty bladder with a Vela catheter. Incidental finding left renal cyst. 12/08 SP EGD/PEG placement R hip pain -R hip CT: No evidence of acute bony trauma or significant soft tissue trauma. Rectal fecal impaction. Colonic diverticulosis Dm2 HTN HLD colon CA sp treatment Alzheimer's dementia fall w/ resultant [facility] NH resident ([facility]) Plan: -PO Vancomycin 125mg qid #/-14 -12/08 SP Meropenem #7 -12/08/19 SP Vancomycin #4 -12/02 Sp Aztreonam #1 -12/01 SP Ceftriaxone x1 -f/u cx -Monitor CBC/CMP, temperatures -aspiration precautions -PEG care -Cdiff contact isolation Thank you for this consultation. Will continue to follow along with you. Discussed with RN. Subjective Allergies: Coded Allergies: ATENOLOL (Verified Allergy, Unknown, 05/23/16) LOSARTAN (Verified Allergy, Unknown, 05/23/16) SIMVASTATIN (Verified Allergy, Unknown, 05/23/16) Uncoded Allergies: AMLIODIPINE (Allergy, Unknown, 05/23/16) PENICILLIN (Allergy, Unknown, 12/03/19) Tolerated Ceftriaxone on 12/02/19 afebrile no leukocytosis Objective Last 24 Hour Vital Signs Date Time Temp Pulse Resp B/P (MAP) Pulse Ox O2 Delivery O2 Flow Rate FiO2 12/17/19 09:00 Room Air 12/17/19 08:00 98.2 87 18 106/48 (67) 95 12/17/19 04:00 98.8 86 20 118/59 (78) 98 12/17/19 00:00 98.1 86 20 119/60 (79) 98 12/16/19 20:00 98.6 82 20 104/53 (70) 96 12/16/19 16:00 97.2 80 18 132/53 (79) 97 12/16/19 16:00 83 Height (Feet): 5 Height (Inches): 6.00 Weight (Pounds): 115 General Appearance: no apparent distress Cardiovascular: normal rate Respiratory/Chest: lungs clear - ant Abdomen: normal bowel sounds, non tender, soft Extremities: no swelling Laboratory Tests Test 12/16/19 21:00 12/17/19 05:45 Sodium Level 139 MMOL/L (136-145) 147 MMOL/L (136-145) H Potassium Level 4.1 MMOL/L (3.5-5.1) 4.4 MMOL/L (3.5-5.1) Chloride Level 104 MMOL/L (98-107) 110 MMOL/L (98-107) H Carbon Dioxide Level 30 MMOL/L (21-32) 29 MMOL/L (21-32) Anion Gap 5 mmol/L (5-15) 8 mmol/L (5-15) Blood Urea Nitrogen 62 mg/dL (7-18) H 59 mg/dL (7-18) H Creatinine 1.4 MG/DL (0.55-1.30) H 1.4 MG/DL (0.55-1.30) H Estimat Glomerular Filtration Rate 47.8 mL/min (>60) 47.8 mL/min (>60) Glucose Level 153 MG/DL (74-106) H 165 MG/DL (74-106) H Calcium Level 8.1 MG/DL (8.5-10.1) L 7.6 MG/DL (8.5-10.1) L White Blood Count 6.7 K/UL (4.8-10.8) Red Blood Count 2.80 M/UL (4.70-6.10) L Hemoglobin 7.5 G/DL (14.2-18.0) L Hematocrit 23.8 % (42.0-52.0) L Mean Corpuscular Volume 85 FL (80-99) Mean Corpuscular Hemoglobin 26.7 PG (27.0-31.0) L Mean Corpuscular Hemoglobin Concent 31.3 G/DL (32.0-36.0) L Red Cell Distribution Width 13.1 % (11.6-14.8) Platelet Count 406 K/UL (150-450) Mean Platelet Volume 5.1 FL (6.5-10.1) L Neutrophils (%) (Auto) % (45.0-75.0) Lymphocytes (%) (Auto) % (20.0-45.0) Monocytes (%) (Auto) % (1.0-10.0) Eosinophils (%) (Auto) % (0.0-3.0) Basophils (%) (Auto) % (0.0-2.0) Current Medications Medications (Trade) Dose Ordered Sig/James Route PRN Reason Start Time Stop Time Status Last Admin Dose Admin Acetaminophen (Tylenol) 650 mg Q4H PRN ORAL fever 12/03/19 18:48 01/02/20 18:47 Apixaban (Eliquis) 2.5 mg BID ORAL 12/05/19 09:00 03/04/20 08:59 12/17/19 09:40 Clonidine HCl (Catapres Tab) 0.1 mg Q4H PRN ORAL For High Blood Pressure 12/03/19 19:15 03/01/20 19:14 Dextrose (Dextrose 50%) 25 ml Q30M PRN IV Hypoglycemia 12/03/19 18:45 03/01/20 19:14 Dextrose (Dextrose 50%) 50 ml Q30M PRN IV Hypoglycemia 12/03/19 18:45 03/01/20 19:14 Escitalopram Oxalate (Lexapro) 10 mg DAILY ORAL 12/04/19 09:00 01/02/20 08:59 12/17/19 09:40 Folic Acid (Folate) 2 mg DAILY NG 12/05/19 09:00 01/04/20 08:59 12/17/19 09:41 Insulin Aspart (NovoLOG) EVERY 6 HOURS SUBQ 12/16/19 00:00 03/01/20 20:59 12/17/19 12:11 Nitroglycerin (Ntg) 0.4 mg Q5M X 3 DOSES PRN SL Prn Chest Pain 12/03/19 18:45 01/01/20 19:14 Ondansetron HCl (Zofran) 4 mg Q6H PRN IVP Nausea & Vomiting 12/03/19 19:15 01/01/20 19:14 Promethazine HCl/ Codeine (Phenergan with Codeine) 5 ml Q4H PRN ORAL For Cough 12/03/19 19:15 01/01/20 19:14 Vancomycin HCl (Firvanq) 125 mg FOUR TIMES A DAY GT 12/15/19 11:00 12/22/19 10:59 12/17/19 12:11 Velma Lopez M.D. Dec 17, 2019 12:36
--- NOTE | 2019-12-17 12:55 | Internal Med Progress Note ---
Subjective Date of Service: Dec 17, 2019 Physician Name MiriamDarren Attending Physician Darren Spencer MD Current Medications Medications (Trade) Dose Ordered Sig/James Route PRN Reason Start Time Stop Time Status Last Admin Dose Admin Acetaminophen (Tylenol) 650 mg Q4H PRN ORAL fever 12/03/19 18:48 01/02/20 18:47 Apixaban (Eliquis) 2.5 mg BID ORAL 12/05/19 09:00 03/04/20 08:59 12/17/19 09:40 Clonidine HCl (Catapres Tab) 0.1 mg Q4H PRN ORAL For High Blood Pressure 12/03/19 19:15 03/01/20 19:14 Dextrose (Dextrose 50%) 25 ml Q30M PRN IV Hypoglycemia 12/03/19 18:45 03/01/20 19:14 Dextrose (Dextrose 50%) 50 ml Q30M PRN IV Hypoglycemia 12/03/19 18:45 03/01/20 19:14 Escitalopram Oxalate (Lexapro) 10 mg DAILY ORAL 12/04/19 09:00 01/02/20 08:59 12/17/19 09:40 Folic Acid (Folate) 2 mg DAILY NG 12/05/19 09:00 01/04/20 08:59 12/17/19 09:41 Insulin Aspart (NovoLOG) EVERY 6 HOURS SUBQ 12/16/19 00:00 03/01/20 20:59 12/17/19 12:11 Nitroglycerin (Ntg) 0.4 mg Q5M X 3 DOSES PRN SL Prn Chest Pain 12/03/19 18:45 01/01/20 19:14 Ondansetron HCl (Zofran) 4 mg Q6H PRN IVP Nausea & Vomiting 12/03/19 19:15 01/01/20 19:14 Promethazine HCl/ Codeine (Phenergan with Codeine) 5 ml Q4H PRN ORAL For Cough 12/03/19 19:15 01/01/20 19:14 Vancomycin HCl (Firvanq) 125 mg FOUR TIMES A DAY GT 12/15/19 11:00 12/22/19 10:59 12/17/19 12:11 Allergies: Coded Allergies: ATENOLOL (Verified Allergy, Unknown, 05/23/16) LOSARTAN (Verified Allergy, Unknown, 05/23/16) SIMVASTATIN (Verified Allergy, Unknown, 05/23/16) Uncoded Allergies: AMLIODIPINE (Allergy, Unknown, 05/23/16) PENICILLIN (Allergy, Unknown, 12/03/19) Tolerated Ceftriaxone on 12/02/19 ROS Limited/Unobtainable: Yes Subjective 89 YO M admitted with atlered mental status. Now UTI. Cover for Int Med-DR Spencer. S/P colonoscopy/EGD 12/09/19 Objective Last Vital Signs Date Time Temp Pulse Resp B/P (MAP) Pulse Ox O2 Delivery O2 Flow Rate FiO2 12/17/19 09:00 Room Air 12/17/19 08:00 98.2 87 18 106/48 (67) 95 12/11/19 07:00 21 12/09/19 13:40 3 Laboratory Tests Test 12/16/19 21:00 12/17/19 05:45 Sodium Level 139 MMOL/L (136-145) 147 MMOL/L (136-145) H Potassium Level 4.1 MMOL/L (3.5-5.1) 4.4 MMOL/L (3.5-5.1) Chloride Level 104 MMOL/L (98-107) 110 MMOL/L (98-107) H Carbon Dioxide Level 30 MMOL/L (21-32) 29 MMOL/L (21-32) Anion Gap 5 mmol/L (5-15) 8 mmol/L (5-15) Blood Urea Nitrogen 62 mg/dL (7-18) H 59 mg/dL (7-18) H Creatinine 1.4 MG/DL (0.55-1.30) H 1.4 MG/DL (0.55-1.30) H Estimat Glomerular Filtration Rate 47.8 mL/min (>60) 47.8 mL/min (>60) Glucose Level 153 MG/DL (74-106) H 165 MG/DL (74-106) H Calcium Level 8.1 MG/DL (8.5-10.1) L 7.6 MG/DL (8.5-10.1) L White Blood Count 6.7 K/UL (4.8-10.8) Red Blood Count 2.80 M/UL (4.70-6.10) L Hemoglobin 7.5 G/DL (14.2-18.0) L Hematocrit 23.8 % (42.0-52.0) L Mean Corpuscular Volume 85 FL (80-99) Mean Corpuscular Hemoglobin 26.7 PG (27.0-31.0) L Mean Corpuscular Hemoglobin Concent 31.3 G/DL (32.0-36.0) L Red Cell Distribution Width 13.1 % (11.6-14.8) Platelet Count 406 K/UL (150-450) Mean Platelet Volume 5.1 FL (6.5-10.1) L Neutrophils (%) (Auto) % (45.0-75.0) Lymphocytes (%) (Auto) % (20.0-45.0) Monocytes (%) (Auto) % (1.0-10.0) Eosinophils (%) (Auto) % (0.0-3.0) Basophils (%) (Auto) % (0.0-2.0) Intake and Output 12/16/19 12/17/19 19:00 07:00 Intake Total 740 ml 415 ml Balance 740 ml 415 ml Intake Free Water 130 ml 100 ml Tube Feeding 610 ml 315 ml # Bowel Movements 1 Objective Objective GENERAL: open eyes more responsive, cachectic, chronic ill appearing. HEENT: Pupils equal and reactive to light, anicteric, NG tube. NECK: Supple. No JVD. LUNGS: Fair bilateral air entry. No wheezing, rhonchi. Decreased air in the bases. HEART: S1, S2. Distant heart sounds. No murmur or gallop. ABDOMEN: Soft, nondistended, nontender. No rebound tenderness. No fluid shift. : Vela cath. EXTREMITIES: No cyanosis, clubbing, or edema. Muscle atrophy to bilateral lower extremities noted. NEUROLOGIC: Cranial nerves II to XII grossly intact, motor right side is weaker than left side. RECTAL/GENITOURINARY: Refused and deferred PSYCHIATRIC: Mood and affect unable to obtain secondary to the patient's status. Assessment/Plan Assessment/Plan Assessment/Plan Assessment/Plan ASSESSMENT: 1. Acute encephalopathy, most likely secondary to toxic metabolic encephalopathy as well as acute CVA. 2. Acute ESBL Klebsiella urinary tract infection. 3. Diabetes type 2. 4. Acute kidney injury, on chronic renal insufficiency. 5. Multifocal infarction, confirmed on MRI. 6. Hypertension. 7. Dyslipidemia. 8. Colon cancer, status post resection. 9. Alzheimer dementia. 10. History of fall with subdural hematoma, resolved. 11. Severe protein-calorie malnutrition. 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 13. C. Diff colitis 14. Dysphagia PLAN: In telemetry. Follow up with laboratory and culture. Abx: oral vanco and IV flagyl; S/P Meropenem. ID consultation, Dr. Lopez, pulmonary consultation, Dr. Vera, Cardiology consultation with Dr. Beka Saleh, Nephrology consultation with Dr. Vin Otero. Code status: Full code. DVT prophylaxis: Eliquis. Tolerated Tube feeding @ 50 cc/hr. S/P endoscopy/colonoscopy/PEG 12/09/19 Darren Pineda MD Dec 17, 2019 12:55
--- NOTE | 2019-12-17 14:27 | Surgery Progress Note ---
Surgery Progress Note Subjective Symptoms: improved, tolerating diet Objective Last 24 Hour Vital Signs Date Time Temp Pulse Resp B/P (MAP) Pulse Ox O2 Delivery O2 Flow Rate FiO2 12/17/19 12:00 98.8 86 18 110/53 (72) 94 12/17/19 09:00 Room Air 12/17/19 08:00 98.2 87 18 106/48 (67) 95 12/17/19 04:00 98.8 86 20 118/59 (78) 98 12/17/19 00:00 98.1 86 20 119/60 (79) 98 12/16/19 20:00 98.6 82 20 104/53 (70) 96 12/16/19 16:00 97.2 80 18 132/53 (79) 97 12/16/19 16:00 83 I&O Intake and Output 12/16/19 12/17/19 19:00 07:00 Intake Total 740 ml 415 ml Balance 740 ml 415 ml Intake Free Water 130 ml 100 ml Tube Feeding 610 ml 315 ml # Bowel Movements 1 Dressing: saturated Cardiovascular: RSR Respiratory: clear, decreased breath sounds Abdomen: soft, non-tender, present bowel sounds, other Extremities: no tenderness, no cyanosis Laboratory Tests Test 12/16/19 21:00 12/17/19 05:45 Sodium Level 139 MMOL/L (136-145) 147 MMOL/L (136-145) H Potassium Level 4.1 MMOL/L (3.5-5.1) 4.4 MMOL/L (3.5-5.1) Chloride Level 104 MMOL/L (98-107) 110 MMOL/L (98-107) H Carbon Dioxide Level 30 MMOL/L (21-32) 29 MMOL/L (21-32) Anion Gap 5 mmol/L (5-15) 8 mmol/L (5-15) Blood Urea Nitrogen 62 mg/dL (7-18) H 59 mg/dL (7-18) H Creatinine 1.4 MG/DL (0.55-1.30) H 1.4 MG/DL (0.55-1.30) H Estimat Glomerular Filtration Rate 47.8 mL/min (>60) 47.8 mL/min (>60) Glucose Level 153 MG/DL (74-106) H 165 MG/DL (74-106) H Calcium Level 8.1 MG/DL (8.5-10.1) L 7.6 MG/DL (8.5-10.1) L White Blood Count 6.7 K/UL (4.8-10.8) Red Blood Count 2.80 M/UL (4.70-6.10) L Hemoglobin 7.5 G/DL (14.2-18.0) L Hematocrit 23.8 % (42.0-52.0) L Mean Corpuscular Volume 85 FL (80-99) Mean Corpuscular Hemoglobin 26.7 PG (27.0-31.0) L Mean Corpuscular Hemoglobin Concent 31.3 G/DL (32.0-36.0) L Red Cell Distribution Width 13.1 % (11.6-14.8) Platelet Count 406 K/UL (150-450) Mean Platelet Volume 5.1 FL (6.5-10.1) L Neutrophils (%) (Auto) % (45.0-75.0) Lymphocytes (%) (Auto) % (20.0-45.0) Monocytes (%) (Auto) % (1.0-10.0) Eosinophils (%) (Auto) % (0.0-3.0) Basophils (%) (Auto) % (0.0-2.0) Plan Problems: (1) History of diabetes mellitus (2) History of hypertension (3) Alzheimer's dementia (4) UTI (urinary tract infection) (5) Unilateral weakness (6) Acute dehydration (7) Altered level of consciousness (8) Subdural hematoma (9) Colon cancer Assessment & Plan: Exam is limited due to patient being contracted. No evidence of acute fracture. No dislocation. The joint spaces are preserved. There is some edema of the right buttock region subcutaneous fat, but no evidence of soft tissue contusion demonstrated. No evidence of pelvic fracture. The rectum is distended by dense stool. There is a Vela catheter within the bladder. A small amount of urine within the bladder despite Vela catheter. There are colonic diverticula. Impression: No evidence of acute bony trauma or significant soft tissue trauma Rectal fecal impaction Colonic diverticulosis (10) Severe protein-calorie malnutrition Assessment & Plan: planned PEG s/p peg tf as tolerated DAILY ESTIMATED NEEDS: Needs based on Underweight, wasting, wound 40kg 30-35 kcals/kg 1113-5774 total kcals 1.25-2 g protein/kg 50-80 g total protein 25-30ml/kcal mL/kg 6576-2139 total fluid mLs NUTRITION DIAGNOSIS: Increased kcal and pro needs r/t underweight status as evidenced by low BMI, moderate to severe generalized wasting, w/ multiple areas of skin compromise, DTI x4. CURRENT DIET: NPO ENTERAL NUTRITION RECOMMENDATIONS: Glucerna 1.2 goal of 45ml/hr x24 hrs to provide 1080ml, 1296 kcal, 65g pro, 869ml free h2O - Obtain GI access, initiate Glucerna 1.2 @25ml/hr for 6 hrs - Advance as tolerated 10ml/hr q4-6 hrs to goal - Flush per MD/ HOB over 30 degrees ------ ADDITIONAL RECOMMENDATIONS: 1) W/ poor po intake, add Ensure TID -> not appropriate for oral po W/ elevated BG rec Glucerna TID-> not appropriate for oral po 2) Add FRANCISCA BID -> f/up w WC eval 3) COMPENSATION CONSULTING MANAGER eval for texture, need for non oral feeds-> S/p COMPENSATION CONSULTING MANAGER eval, not appropriate for oral diet, TF recs as above 4) Calibrated bed scale wts daily 5) Monitor lytes w/ TF, replete as needed ACUTE: ALOC x2 days with right side paralysis, CVA, intracranial bleed, seizure, postictal state, major electrolyte abnormality, severe sepsis, Acute dehydration. H/O: subdural hematoma, colon cancer status post treatment, HTN, Syncope and collapse, anemia, DM2, Alzheimer Dementia, CKD, severe protein-calorie malnutrition, hyperlipidemia, vitamin B12 deficiency, muscle wasting, lack of coordination. POLST: Not in chart. RELEVANT MEDS: Albuterol (SOB); Zofran (Nausea); Restoril (insomnia). VITALS ON 2L NASAL CANNULA: HR: 67; RR: 19; SP02 100% PLOF: Pt consumed mechanical soft with thin liquids [facility] at [facility]. Pt seen at bedside appears frail and weak. Pt able to open eye to verbal communication. Pt noted with copious, thick phlegm and debris in BOT and throughout oral cavity. Pt provided oral moisturizer and thorough oral care with Yankauer suction, removing thick phlegm, mildly improved verbal communication s/p oral care. Pt able to nod head yes when asked if Pt gets thickened liquids. 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 Pt given PO trial of nectar thick liquid teaspoons. Oral phase characterized by functional labial seal, poor bolus control resulting in suspected premature posterior spillage and subsequent suspected silent aspiration given laryngeal elevation was not well appreciated upon palpation despite verbal and tactile cues to Pt's larynx to initiate swallow; no swallow initiated. Pt did not cough or attempt to clear trial. Pt was able to eventually initiate a swallow with a 20 second delay, laryngeal elevation incomplete in feel upon palpation. Pt is a high risk for silent aspiration, would benefit from MBSS in future (will monitor Pt's candidacy, not appropriate to participate in MBSS at this time). RECOMMENDATIONS: 1. NPO with nutrition, hydration, and meds via NGT (12 Bengali). 2. Please provide oral care BID 3. Dysphagia therapy 3-5x per week x1 week. 4. Will monitor Pts appropriateness to participate in MBSS. 5. Pt would benefit from Speech, Language, and Cognitive communication evaluation given s/p lacunar infarcts. (11) Decubitus skin ulcer Assessment & Plan: Pt presented on admission with multiple Pressure injuries. Reabsorbing DTPI L Elbow. Base of Pressure Injury is dry and black centrally with maroon borders(L)2cm x (W)1.5cm. DTPI Sacrum (L)9.5cm x (W)11.5cm. Base of Pressure Injury is indurated purpuric with surrounding maroon borders. Pt verbalized tenderness when affected site minimally palpated. DTPI R Ischium(L)8cm x (W)9.5cm. Base of pressure injury is purpuric with maroon borders. Tender when minimally palpated. DTPI L trochanter(L)4cm x (W)3.2cm. Base of injury is purpuric with surrounding Maroon borders. Tender when minimally palpated. DTPI L Ischium (L)7cm x (W)5.4cm.Base of Injury is black with marginal erythema . Tender when minimally palpated. R Heel is boggy with non-blanchable erythema (L)3cm x (W)3.5cm. L Heel is boggy with non-Blanchable erythema(L)5cm x (W)3.5cm. L 1st metatarsal erythematous,tip is fluctuant. Pt complained tender when minimally palpated. No elevation in skin temp noted. Dry scab noted to dorsal L 2nd metatarsal. Tx.Plan: Apply Moisture Barrier Paste to Sacrum and bilat ischial tuberosities. Cover each site with Optifoam drsgs. Change every 3 days and prn. Apply Cavilon Skin Barrier to R and L trochanter. Cover each site with Optifoam drsgs. Change every 7 days and prn Apply Cavilon Skin Barrier to L and R elbows. Cover each site with Optifoam drsgs. Change every 7 days and prn. Apply Cavilon Skin Barrier to both heels and Malleoli. Cover each site with Optifoam drsgs. Change every 7 days and prn. Apply Cavilon Skin Barrier to bony prominences and cover with Optifoam drsgs as needed. Reposition at least every 2hours or as tolerated. Off-load heels with pillow. APM/KARTHIK Mattress overlay. (12) Anemia (13) FRANKY (acute kidney injury) (14) Stroke Assessment & Plan: No occlusion or significant stenosis on color flow and spectral Doppler imaging. Normal waveform. No occlusion or significant stenosis on color flow and spectral Doppler imaging. Normal waveform. Atherosclerotic changes of the left popliteal artery without hemodynamically significant stenosis. Associated, atherosclerotic changes with blunted wave form of the left anterior tibial artery. This is likely secondary to upstream stenosis of the popliteal artery. Poor visualization of the left dorsalis pedis artery. IMPRESSION: Atherosclerotic changes of the left popliteal artery without hemodynamically significant stenosis. Associated, atherosclerotic changes with blunted wave form of the left anterior tibial artery. This is likely secondary to upstream stenosis of the popliteal artery. Poor visualization of the left dorsalis pedis artery. Left common carotid artery: No occlusion or significant stenosis on color flow and spectral Doppler imaging. Normal waveform. Left subclavian artery: No occlusion or significant stenosis on color flow and spectral Doppler imaging. Normal waveform. Left axillary artery: No occlusion or significant stenosis on color flow and spectral Doppler imaging. Normal waveform. Left brachial artery: No occlusion or significant stenosis on color flow and spectral Doppler imaging. Normal waveform. Left radial artery: No occlusion or significant stenosis on color flow and spectral Doppler imaging. Normal waveform. Left ulnar artery: No occlusion or significant stenosis on color flow and spectral Doppler imaging. Normal waveform. Soft tissues: Unremarkable. IMPRESSION: No arterial occlusion. Normal waveforms. Patel Merrill Dec 17, 2019 14:27
[2019-12-17 16:00] VITALS: BP 105/56
--- NOTE | 2019-12-17 16:06 | NUR ---
NURSE NOTES: Patient's hemoglobin is 7.5; I communicated this lab result to MD Vera; waiting for order.
--- NOTE | 2019-12-17 17:03 | NUR ---
NURSE NOTES: I received telephone order from MD Vera, to transfuse 1 unit of PRBC; order carried out as order given;
--- NOTE | 2019-12-17 17:04 | NUR ---
NURSE NOTES: I received consent for blood transfusion from patient's son, Kishore Sagastume. Consent witnessed by charge nurse, Ruy;
--- NOTE | 2019-12-17 17:40 | Pulmonology Progress Note ---
Subjective ROS Limited/Unobtainable: Yes Constitutional: Reports: no symptoms HEENT: Repors: no symptoms Allergies: Coded Allergies: ATENOLOL (Verified Allergy, Unknown, 05/23/16) LOSARTAN (Verified Allergy, Unknown, 05/23/16) SIMVASTATIN (Verified Allergy, Unknown, 05/23/16) Uncoded Allergies: AMLIODIPINE (Allergy, Unknown, 05/23/16) PENICILLIN (Allergy, Unknown, 12/03/19) Tolerated Ceftriaxone on 12/02/19 Objective Last 24 Hour Vital Signs Date Time Temp Pulse Resp B/P (MAP) Pulse Ox O2 Delivery O2 Flow Rate FiO2 12/17/19 16:00 99.5 89 18 105/56 (72) 95 12/17/19 12:00 98.8 86 18 110/53 (72) 94 12/17/19 09:00 Room Air 12/17/19 08:00 98.2 87 18 106/48 (67) 95 12/17/19 04:00 98.8 86 20 118/59 (78) 98 12/17/19 00:00 98.1 86 20 119/60 (79) 98 12/16/19 20:00 98.6 82 20 104/53 (70) 96 Intake and Output 12/16/19 12/17/19 19:00 07:00 Intake Total 740 ml 560 ml Balance 740 ml 560 ml Intake Free Water 130 ml 200 ml Tube Feeding 610 ml 360 ml # Bowel Movements 1 General Appearance: cachetic HEENT: normocephalic, atraumatic Respiratory: chest wall non-tender, lungs clear, stridor Cardiovascular: normal peripheral pulses Abdomen: normal bowel sounds, soft, non tender Extremities: no cyanosis Skin: no ulcers Neurologic: no motor/sensory deficits Lymphatic: no neck adenopathy Laboratory Tests 12/16/19 21:00: Sodium Level 139, Potassium Level 4.1, Chloride Level 104, Carbon Dioxide Level 30, Anion Gap 5, Blood Urea Nitrogen 62H, Creatinine 1.4H, Estimat Glomerular Filtration Rate 47.8, Glucose Level 153H, Calcium Level 8.1L 12/17/19 05:45: Sodium Level 147H, Potassium Level 4.4, Chloride Level 110H, Carbon Dioxide Level 29, Anion Gap 8, Blood Urea Nitrogen 59H, Creatinine 1.4H, Estimat Glomerular Filtration Rate 47.8, Glucose Level 165H, Calcium Level 7.6L, White Blood Count 6.7, Red Blood Count 2.80L, Hemoglobin 7.5L, Hematocrit 23.8L, Mean Corpuscular Volume 85, Mean Corpuscular Hemoglobin 26.7L, Mean Corpuscular Hemoglobin Concent 31.3L, Red Cell Distribution Width 13.1, Platelet Count 406, Mean Platelet Volume 5.1L, Neutrophils (%) (Auto) , Lymphocytes (%) (Auto) , Monocytes (%) (Auto) , Eosinophils (%) (Auto) , Basophils (%) (Auto) Current Medications Medications (Trade) Dose Ordered Sig/James Route PRN Reason Start Time Stop Time Status Last Admin Dose Admin Acetaminophen (Tylenol) 650 mg Q4H PRN ORAL fever 12/03/19 18:48 01/02/20 18:47 Apixaban (Eliquis) 2.5 mg BID ORAL 12/05/19 09:00 03/04/20 08:59 12/17/19 09:40 Clonidine HCl (Catapres Tab) 0.1 mg Q4H PRN ORAL For High Blood Pressure 12/03/19 19:15 03/01/20 19:14 Dextrose (Dextrose 50%) 25 ml Q30M PRN IV Hypoglycemia 12/03/19 18:45 03/01/20 19:14 Dextrose (Dextrose 50%) 50 ml Q30M PRN IV Hypoglycemia 12/03/19 18:45 03/01/20 19:14 Escitalopram Oxalate (Lexapro) 10 mg DAILY ORAL 12/04/19 09:00 01/02/20 08:59 12/17/19 09:40 Folic Acid (Folate) 2 mg DAILY NG 12/05/19 09:00 01/04/20 08:59 12/17/19 09:41 Insulin Aspart (NovoLOG) EVERY 6 HOURS SUBQ 12/16/19 00:00 03/01/20 20:59 12/17/19 12:11 Nitroglycerin (Ntg) 0.4 mg Q5M X 3 DOSES PRN SL Prn Chest Pain 12/03/19 18:45 01/01/20 19:14 Ondansetron HCl (Zofran) 4 mg Q6H PRN IVP Nausea & Vomiting 12/03/19 19:15 01/01/20 19:14 Promethazine HCl/ Codeine (Phenergan with Codeine) 5 ml Q4H PRN ORAL For Cough 12/03/19 19:15 01/01/20 19:14 Vancomycin HCl (Firvanq) 125 mg FOUR TIMES A DAY GT 12/15/19 11:00 12/22/19 10:59 12/17/19 12:11 Assessment/Plan Problems: (1) Altered level of consciousness (2) UTI (urinary tract infection) (3) Severe protein-calorie malnutrition (4) History of diabetes mellitus (5) History of hypertension (6) Alzheimer's dementia (7) Unilateral weakness (8) Subdural hematoma (9) Colon cancer Assessment/Plan prbc today large amount of diarrhea no [place] looks hs usual chronically ill self cxr reviewed 12/14: no acute changes Urine has GNB, MDR Klebsiella Abx as per ID: flagyl and Vancomycin f/u electrolytes swallow study reviewed. swallow evaluation pending Neurology note appreciated Cherelle Vera MD Dec 17, 2019 17:40
--- NOTE | 2019-12-17 19:09 | NUR ---
HAND-OFF: Report given to ELLI Pierce. Endorsed to the incoming nurse that patient's blood is ready for mushroom picker from blood bank; G-tube, rectal tube and hamlin in place; pateint resting; no sing of distress at this time;
--- NOTE | 2019-12-17 19:25 | NUR ---
NURSE NOTES: Received report from maximo alvares. patient is on bed, asleep. on room air. no sob. on tube feeding of glucerna 1.2 @ 45 mls/hr. on rectal tube and hamlin catheter draining well. on P200 mattress. with left forearm, saline lock. per giorgio, " patient has order to infuse 1 pcrb of blood due to 7.5 level of hemoglobin as ordered by dr. jordan". kept head of bed elevated. bed locked and in lowest position. call light and light button within easy reach. will continue plan of care.
--- NOTE | 2019-12-17 19:25 | Cardiology Progress Note ---
Assessment/Plan Assessment/Plan 1. 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 2. Altered mental status, probably secondary to above. 3. Renal insufficiency acute on chronic. 4. Urinary tract infection. 5. History of subdural hematoma post fall. 6. B12 deficiency. 7. Diabetes mellitus. 8. Anemia. 9. Iron deficiency. 10. 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 ct neg 11 c diff 12. hypernatremia neuro recommended dapt initially but then to anticoagualtion with eliquis since 12/04 urin cx + but blood cx neg , stool c diff getting tube feeding carotid less thn 50% stenosis off tele now ct of hip right neg for fx arterial dupelx left arm and left leg were performed recently no hemodynamically sig stenosis noted na going up again may need more free water now on med surg on vanco po for c diff watch hgb Subjective Cardiovascular: Denies: chest pain, lightheadedness Respiratory: Denies: shortness of breath Objective Last 24 Hour Vital Signs Date Time Temp Pulse Resp B/P (MAP) Pulse Ox O2 Delivery O2 Flow Rate FiO2 12/17/19 16:00 99.5 89 18 105/56 (72) 95 12/17/19 12:00 98.8 86 18 110/53 (72) 94 12/17/19 09:00 Room Air 12/17/19 08:00 98.2 87 18 106/48 (67) 95 12/17/19 04:00 98.8 86 20 118/59 (78) 98 12/17/19 00:00 98.1 86 20 119/60 (79) 98 12/16/19 20:00 98.6 82 20 104/53 (70) 96 General Appearance: no apparent distress, alert Neck: supple Cardiovascular: normal rate Respiratory/Chest: lungs clear Abdomen: normal bowel sounds, non tender Extremities: no swelling, other - right leg contracted Intake and Output 12/16/19 12/17/19 19:00 07:00 Intake Total 740 ml 560 ml Balance 740 ml 560 ml Intake Free Water 130 ml 200 ml Tube Feeding 610 ml 360 ml # Bowel Movements 1 Laboratory Tests Test 12/16/19 21:00 12/17/19 05:45 Sodium Level 139 MMOL/L (136-145) 147 MMOL/L (136-145) H Potassium Level 4.1 MMOL/L (3.5-5.1) 4.4 MMOL/L (3.5-5.1) Chloride Level 104 MMOL/L (98-107) 110 MMOL/L (98-107) H Carbon Dioxide Level 30 MMOL/L (21-32) 29 MMOL/L (21-32) Anion Gap 5 mmol/L (5-15) 8 mmol/L (5-15) Blood Urea Nitrogen 62 mg/dL (7-18) H 59 mg/dL (7-18) H Creatinine 1.4 MG/DL (0.55-1.30) H 1.4 MG/DL (0.55-1.30) H Estimat Glomerular Filtration Rate 47.8 mL/min (>60) 47.8 mL/min (>60) Glucose Level 153 MG/DL (74-106) H 165 MG/DL (74-106) H Calcium Level 8.1 MG/DL (8.5-10.1) L 7.6 MG/DL (8.5-10.1) L White Blood Count 6.7 K/UL (4.8-10.8) Red Blood Count 2.80 M/UL (4.70-6.10) L Hemoglobin 7.5 G/DL (14.2-18.0) L Hematocrit 23.8 % (42.0-52.0) L Mean Corpuscular Volume 85 FL (80-99) Mean Corpuscular Hemoglobin 26.7 PG (27.0-31.0) L Mean Corpuscular Hemoglobin Concent 31.3 G/DL (32.0-36.0) L Red Cell Distribution Width 13.1 % (11.6-14.8) Platelet Count 406 K/UL (150-450) Mean Platelet Volume 5.1 FL (6.5-10.1) L Neutrophils (%) (Auto) % (45.0-75.0) Lymphocytes (%) (Auto) % (20.0-45.0) Monocytes (%) (Auto) % (1.0-10.0) Eosinophils (%) (Auto) % (0.0-3.0) Basophils (%) (Auto) % (0.0-2.0) Beka Saleh MD Dec 17, 2019 19:25
[2019-12-17 20:00] VITALS: BP 107/49
[2019-12-18] VITALS: BP 109/52
--- NOTE | 2019-12-18 | NUR ---
NURSE NOTES: with an order from MD to transfuse blood 1 prbc. hanged blood with co-RN.vitals stable with no other complaints. charge nurse made aware
--- NOTE | 2019-12-18 00:15 | NUR ---
NURSE NOTES: patient has no complaints after initial 15 mins of infusing blood. vitals stable. will continue to monitor.
--- NOTE | 2019-12-18 03:30 | NUR ---
NURSE NOTES: blood transfusion done with no noted complaints. vitals stable. empty prbc bag returned to then blood bank. charge nurse made aware.
[2019-12-18 04:00] VITALS: BP 119/60
[2019-12-18] MEDS: NovoLOG Insulin Flexpen SUBQ SCH ×3 (06:00→18:11)
[2019-12-18 06:41] LABS: BASOPHILS % (AUTO) 0.6 % (0.0-2.0); EOSINOPHILS % (AUTO) 0.9 % (0.0-3.0); HEMATOCRIT 31.7 % (42.0-52.0); HEMOGLOBIN 10.1 G/DL (14.2-18.0); LYMPHOCYTES % (AUTO) 10.4 % (20.0-45.0); MEAN CORPUSCULAR VOLUME 85 FL (80-99); MONOCYTES % (AUTO) 7.6 % (1.0-10.0); NEUTROPHILS % (AUTO) 80.5 % (45.0-75.0); PLATELET COUNT 411 K/UL (150-450); RED BLOOD COUNT 3.74 M/UL (4.70-6.10); RED CELL DISTRIBUTION WIDTH 13.1 % (11.6-14.8); WHITE BLOOD COUNT 9.9 K/UL (4.8-10.8)
--- NOTE | 2019-12-18 06:51 | NUR ---
NURSE HAND-OFF: Important Events on Shift:tube feeding; s/p blood transfusion: rectal tube; hamlin care Patient Status: stable Diet: glucerna 1.2 @ 45ml/hr Pending Orders: Pending Results/Labs: Pending MD notification: Latest Vital Signs: Temperature 97.2 , Pulse 72 , B/P 119 /60 , Respiratory Rate 20 , O2 SAT 95 , Room Air, O2 Flow Rate 3 . Vital Sign Comment: Latest Zhang Fall Score: 70 Fall Risk: High Risk Safety Measures: Call light Within Reach, Bed Alarm Zone 2, Side Rails Side Rails x3, Bed position Low and Locked. Fall Precautions: Yellow Socks Yellow Gown Patient Fall Education
[2019-12-18 07:17] LABS: ALBUMIN 1.8 G/DL (3.4-5.0); ALBUMIN/GLOBULIN RATIO 0.4 (1.0-2.7); BILIRUBIN,TOTAL 1.1 MG/DL (0.2-1.0); CALCIUM 7.9 MG/DL (8.5-10.1); CREATININE 1.4 MG/DL (0.55-1.30); PHOSPHORUS 3.9 MG/DL (2.5-4.9); POTASSIUM 4.3 MMOL/L (3.5-5.1)
[2019-12-18 07:18] LABS: BILIRUBIN,DIRECT 0.2 MG/DL (0.0-0.3)
--- NOTE | 2019-12-18 07:29 | NUR ---
HAND-OFF: Report given to maximo montilla.
[2019-12-18 08:00] VITALS: BP 109/53
--- NOTE | 2019-12-18 08:15 | NUR ---
NURSE NOTES: Patient alert x1, confused, disoriented; on room air, no sing of distress and shortness of breath; no sing of chest pain; IV Left-For arm flushes well; G-tube running Glucerna 1.2 running 45cc, no residual; head of the bed elevated for aspiration percussion; Vela and rectal tube in place; side rials up x2, breaks engaged, bed at lowest position, bed alarm on; will keep monitoring.
[2019-12-18] MEDS: Eliquis 2.5mg tablet ORAL SCH ×2 (09:16→17:18)
[2019-12-18] MEDS: Vancomycin oral 125mg/2.5ml GT SCH ×4 (09:16→21:00)
--- NOTE | 2019-12-18 10:35 | Surgery Progress Note ---
Surgery Progress Note Subjective Additional Comments no acute events comfortable stable Objective Last 24 Hour Vital Signs Date Time Temp Pulse Resp B/P (MAP) Pulse Ox O2 Delivery O2 Flow Rate FiO2 12/18/19 09:00 Room Air 12/18/19 08:00 97.1 82 17 109/53 (71) 96 12/18/19 04:00 97.2 72 20 119/60 (79) 95 12/18/19 00:00 96.6 79 20 109/52 (71) 96 12/17/19 20:00 96.8 78 20 107/49 (68) 95 12/17/19 16:00 99.5 89 18 105/56 (72) 95 12/17/19 12:00 98.8 86 18 110/53 (72) 94 I&O Intake and Output 12/17/19 12/18/19 19:00 07:00 Intake Total 740 ml 695 ml Output Total 700 ml 500 ml Balance 40 ml 195 ml Intake Free Water 200 ml 200 ml Tube Feeding 540 ml 495 ml Output Urine Total 700 ml 500 ml Dressing: other Wound: other Cardiovascular: RSR Respiratory: decreased breath sounds Abdomen: soft, non-tender, present bowel sounds Extremities: no tenderness, no cyanosis Laboratory Tests Test 12/18/19 06:00 White Blood Count 9.9 K/UL (4.8-10.8) Red Blood Count 3.74 M/UL (4.70-6.10) L Hemoglobin 10.1 G/DL (14.2-18.0) #L Hematocrit 31.7 % (42.0-52.0) #L Mean Corpuscular Volume 85 FL (80-99) Mean Corpuscular Hemoglobin 27.1 PG (27.0-31.0) Mean Corpuscular Hemoglobin Concent 31.9 G/DL (32.0-36.0) L Red Cell Distribution Width 13.1 % (11.6-14.8) Platelet Count 411 K/UL (150-450) Mean Platelet Volume 5.3 FL (6.5-10.1) L Neutrophils (%) (Auto) 80.5 % (45.0-75.0) H Lymphocytes (%) (Auto) 10.4 % (20.0-45.0) L Monocytes (%) (Auto) 7.6 % (1.0-10.0) Eosinophils (%) (Auto) 0.9 % (0.0-3.0) Basophils (%) (Auto) 0.6 % (0.0-2.0) Erythrocyte Sedimentation Rate 84 MM/HR (0-20) H Sodium Level 144 MMOL/L (136-145) Potassium Level 4.3 MMOL/L (3.5-5.1) Chloride Level 107 MMOL/L (98-107) Carbon Dioxide Level 29 MMOL/L (21-32) Anion Gap 8 mmol/L (5-15) Blood Urea Nitrogen 59 mg/dL (7-18) H Creatinine 1.4 MG/DL (0.55-1.30) H Estimat Glomerular Filtration Rate 47.8 mL/min (>60) Glucose Level 160 MG/DL (74-106) H Calcium Level 7.9 MG/DL (8.5-10.1) L Phosphorus Level 3.9 MG/DL (2.5-4.9) Magnesium Level 2.3 MG/DL (1.8-2.4) Total Bilirubin 1.1 MG/DL (0.2-1.0) H Direct Bilirubin 0.2 MG/DL (0.0-0.3) Aspartate Amino Transf (AST/SGOT) 45 U/L (15-37) H Alanine Aminotransferase (ALT/SGPT) 39 U/L (12-78) Alkaline Phosphatase 67 U/L (46-116) C-Reactive Protein, Quantitative 4.9 mg/dL (0.00-0.90) H Total Protein 5.8 G/DL (6.4-8.2) L Albumin 1.8 G/DL (3.4-5.0) L Globulin 4.0 g/dL Albumin/Globulin Ratio 0.4 (1.0-2.7) L Plan Problems: (1) History of diabetes mellitus (2) History of hypertension (3) Alzheimer's dementia (4) UTI (urinary tract infection) (5) Unilateral weakness (6) Acute dehydration (7) Altered level of consciousness (8) Subdural hematoma (9) Colon cancer Assessment & Plan: Exam is limited due to patient being contracted. No evidence of acute fracture. No dislocation. The joint spaces are preserved. There is some edema of the right buttock region subcutaneous fat, but no evidence of soft tissue contusion demonstrated. No evidence of pelvic fracture. The rectum is distended by dense stool. There is a Vela catheter within the bladder. A small amount of urine within the bladder despite Vela catheter. There are colonic diverticula. Impression: No evidence of acute bony trauma or significant soft tissue trauma Rectal fecal impaction Colonic diverticulosis (10) Severe protein-calorie malnutrition Assessment & Plan: planned PEG s/p peg tf as tolerated DAILY ESTIMATED NEEDS: Needs based on Underweight, wasting, wound 40kg 30-35 kcals/kg 1476-1628 total kcals 1.25-2 g protein/kg 50-80 g total protein 25-30ml/kcal mL/kg 0338-7569 total fluid mLs NUTRITION DIAGNOSIS: Increased kcal and pro needs r/t underweight status as evidenced by low BMI, moderate to severe generalized wasting, w/ multiple areas of skin compromise, DTI x4. CURRENT DIET: NPO ENTERAL NUTRITION RECOMMENDATIONS: Glucerna 1.2 goal of 45ml/hr x24 hrs to provide 1080ml, 1296 kcal, 65g pro, 869ml free h2O - Obtain GI access, initiate Glucerna 1.2 @25ml/hr for 6 hrs - Advance as tolerated 10ml/hr q4-6 hrs to goal - Flush per MD/ HOB over 30 degrees ------ ADDITIONAL RECOMMENDATIONS: 1) W/ poor po intake, add Ensure TID -> not appropriate for oral po W/ elevated BG rec Glucerna TID-> not appropriate for oral po 2) Add FRANCISCA BID -> f/up w WC eval 3) ACID WASHER OPERATOR eval for texture, need for non oral feeds-> S/p ACID WASHER OPERATOR eval, not appropriate for oral diet, TF recs as above 4) Calibrated bed scale wts daily 5) Monitor lytes w/ TF, replete as needed ACUTE: ALOC x2 days with right side paralysis, CVA, intracranial bleed, seizure, postictal state, major electrolyte abnormality, severe sepsis, Acute dehydration. H/O: subdural hematoma, colon cancer status post treatment, HTN, Syncope and collapse, anemia, DM2, Alzheimer Dementia, CKD, severe protein-calorie malnutrition, hyperlipidemia, vitamin B12 deficiency, muscle wasting, lack of coordination. POLST: Not in chart. RELEVANT MEDS: Albuterol (SOB); Zofran (Nausea); Restoril (insomnia). VITALS ON 2L NASAL CANNULA: HR: 67; RR: 19; SP02 100% PLOF: Pt consumed mechanical soft with thin liquids [facility]. Pt seen at bedside appears frail and weak. Pt able to open eye to verbal communication. Pt noted with copious, thick phlegm and debris in BOT and throughout oral cavity. Pt provided oral moisturizer and thorough oral care with Yankauer suction, removing thick phlegm, mildly improved verbal communication s/p oral care. Pt able to nod head yes when asked if Pt gets thickened liquids. 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 Pt given PO trial of nectar thick liquid teaspoons. Oral phase characterized by functional labial seal, poor bolus control resulting in suspected premature posterior spillage and subsequent suspected silent aspiration given laryngeal elevation was not well appreciated upon palpation despite verbal and tactile cues to Pt's larynx to initiate swallow; no swallow initiated. Pt did not cough or attempt to clear trial. Pt was able to eventually initiate a swallow with a 20 second delay, laryngeal elevation incomplete in feel upon palpation. Pt is a high risk for silent aspiration, would benefit from MBSS in future (will monitor Pt's candidacy, not appropriate to participate in MBSS at this time). RECOMMENDATIONS: 1. NPO with nutrition, hydration, and meds via NGT (12 German). 2. Please provide oral care BID 3. Dysphagia therapy 3-5x per week x1 week. 4. Will monitor Pts appropriateness to participate in MBSS. 5. Pt would benefit from Speech, Language, and Cognitive communication evaluation given s/p lacunar infarcts. (11) Decubitus skin ulcer Assessment & Plan: Pt presented on admission with multiple Pressure injuries. Reabsorbing DTPI L Elbow. Base of Pressure Injury is dry and black centrally with maroon borders(L)2cm x (W)1.5cm. DTPI Sacrum (L)9.5cm x (W)11.5cm. Base of Pressure Injury is indurated purpuric with surrounding maroon borders. Pt verbalized tenderness when affected site minimally palpated. DTPI R Ischium(L)8cm x (W)9.5cm. Base of pressure injury is purpuric with maroon borders. Tender when minimally palpated. DTPI L trochanter(L)4cm x (W)3.2cm. Base of injury is purpuric with surrounding Maroon borders. Tender when minimally palpated. DTPI L Ischium (L)7cm x (W)5.4cm.Base of Injury is black with marginal erythema . Tender when minimally palpated. R Heel is boggy with non-blanchable erythema (L)3cm x (W)3.5cm. L Heel is boggy with non-Blanchable erythema(L)5cm x (W)3.5cm. L 1st metatarsal erythematous,tip is fluctuant. Pt complained tender when minimally palpated. No elevation in skin temp noted. Dry scab noted to dorsal L 2nd metatarsal. Tx.Plan: Apply Moisture Barrier Paste to Sacrum and bilat ischial tuberosities. Cover each site with Optifoam drsgs. Change every 3 days and prn. Apply Cavilon Skin Barrier to R and L trochanter. Cover each site with Optifoam drsgs. Change every 7 days and prn Apply Cavilon Skin Barrier to L and R elbows. Cover each site with Optifoam drsgs. Change every 7 days and prn. Apply Cavilon Skin Barrier to both heels and Malleoli. Cover each site with Optifoam drsgs. Change every 7 days and prn. Apply Cavilon Skin Barrier to bony prominences and cover with Optifoam drsgs as needed. Reposition at least every 2hours or as tolerated. Off-load heels with pillow. APM/KARTHIK Mattress overlay. (12) Anemia (13) FRANKY (acute kidney injury) (14) Stroke Assessment & Plan: No occlusion or significant stenosis on color flow and spectral Doppler imaging. Normal waveform. No occlusion or significant stenosis on color flow and spectral Doppler imaging. Normal waveform. Atherosclerotic changes of the left popliteal artery without hemodynamically significant stenosis. Associated, atherosclerotic changes with blunted wave form of the left anterior tibial artery. This is likely secondary to upstream stenosis of the popliteal artery. Poor visualization of the left dorsalis pedis artery. IMPRESSION: Atherosclerotic changes of the left popliteal artery without hemodynamically significant stenosis. Associated, atherosclerotic changes with blunted wave form of the left anterior tibial artery. This is likely secondary to upstream stenosis of the popliteal artery. Poor visualization of the left dorsalis pedis artery. Left common carotid artery: No occlusion or significant stenosis on color flow and spectral Doppler imaging. Normal waveform. Left subclavian artery: No occlusion or significant stenosis on color flow and spectral Doppler imaging. Normal waveform. Left axillary artery: No occlusion or significant stenosis on color flow and spectral Doppler imaging. Normal waveform. Left brachial artery: No occlusion or significant stenosis on color flow and spectral Doppler imaging. Normal waveform. Left radial artery: No occlusion or significant stenosis on color flow and spectral Doppler imaging. Normal waveform. Left ulnar artery: No occlusion or significant stenosis on color flow and spectral Doppler imaging. Normal waveform. Soft tissues: Unremarkable. IMPRESSION: No arterial occlusion. Normal waveforms. Patel Merrill Dec 18, 2019 10:35
--- NOTE | 2019-12-18 10:52 | Nephrology Progress Note ---
Assessment/Plan Problem List: (1) FRANKY (acute kidney injury) (2) Anemia (3) Severe protein-calorie malnutrition (4) Alzheimer's dementia (5) UTI (urinary tract infection) (6) Acute dehydration Assessment Acute on chronic renal failure. Previous admission patient was discharged on serum creatinine of 1.6. Severe malnutrition. Encephalopathy toxic metabolic. Evidence of UTI. Multi-infarct brain disease. Diabetes mellitus Hypertension History of colon cancer [facility] resident Full code Plan December 17: Lab reviewed. Renal parameters stable. Electrolytes within normal limit. Serum creatinine 1.4 unchanged. Discharge planning in process. Continue per ID and GI regarding C. difficile colitis. December 16: Labs reviewed. Stable from renal standpoint of view. Under treatment for C. difficile colitis /diarrhea. Continue per consultants. Watch hemoglobin which is gradually drifting downwards. December 15: Labs reviewed. Discussed with ELLI Sanchez who indicated that the patient has massive diarrhea from the C. difficile. Patient however is stable from renal standpoint of view. Continue per GI and ID advice. December 14: Lab reviewed. Sodium elevated. Potassium 5.2. Creatinine 1.4. Will initiate hydration and recheck renal parameters and electrolytes tomorrow December 13: Lab reviewed.Serum creatinine normal. Continue current management. December 11: Lab reviewed. Serum creatinine normalized. Continue per current management. Continue to monitor renal parameters. December 10: Labs reviewed. Creatinine higher. Albumin 5% bolus of 500 cc ordered. Urine studies ordered. Continue to monitor renal parameters. Per orders. December 09: Lab reviewed. Patient has PEG. Stable from renal standpoint of view. Serum creatinine 1.5 December 08: Labs are reviewed. Stable from renal standpoint. December 07: No chemistry panel done today. Will check labs tomorrow. Stable from renal standpoint of view December 06: Renal parameters stable. DC IV fluid. Continue per consultants. December 05: Renal parameters improving. Continue IV fluid. Continue to monitor renal parameters and electrolytes. Medication list reviewed. Abnormal electrolyte addressed. December 04: Serum creatinine improving. IV fluid changed to D5W 30 cc an hour. Feeding through NG tube is in process. Continue to monitor electrolytes and renal parameters. December 03: Late note entry due to system problem at the [facility] today. Serum creatinine improving. Folic acid supplement given. Continue to monitor renal parameters Slow hydrate Monitor renal parameters urine output Antibiotics Avoid nephrotoxic's Per consultants Improve nutritional status as possible Subjective ROS Limited/Unobtainable: Yes Objective Objective Last 24 Hour Vital Signs Date Time Temp Pulse Resp B/P (MAP) Pulse Ox O2 Delivery O2 Flow Rate FiO2 12/18/19 09:00 Room Air 12/18/19 08:00 97.1 82 17 109/53 (71) 96 12/18/19 04:00 97.2 72 20 119/60 (79) 95 12/18/19 00:00 96.6 79 20 109/52 (71) 96 12/17/19 20:00 96.8 78 20 107/49 (68) 95 12/17/19 16:00 99.5 89 18 105/56 (72) 95 12/17/19 12:00 98.8 86 18 110/53 (72) 94 Intake and Output 12/17/19 12/18/19 19:00 07:00 Intake Total 740 ml 695 ml Output Total 700 ml 500 ml Balance 40 ml 195 ml Intake Free Water 200 ml 200 ml Tube Feeding 540 ml 495 ml Output Urine Total 700 ml 500 ml Laboratory Tests 12/18/19 06:00: White Blood Count 9.9, Red Blood Count 3.74L, Hemoglobin 10.1#L, Hematocrit 31.7#L, Mean Corpuscular Volume 85, Mean Corpuscular Hemoglobin 27.1, Mean Corpuscular Hemoglobin Concent 31.9L, Red Cell Distribution Width 13.1, Platelet Count 411, Mean Platelet Volume 5.3L, Neutrophils (%) (Auto) 80.5H, Lymphocytes (%) (Auto) 10.4L, Monocytes (%) (Auto) 7.6, Eosinophils (%) (Auto) 0.9, Basophils (%) (Auto) 0.6, Erythrocyte Sedimentation Rate 84H, Sodium Level 144, Potassium Level 4.3, Chloride Level 107, Carbon Dioxide Level 29, Anion Gap 8, Blood Urea Nitrogen 59H, Creatinine 1.4H, Estimat Glomerular Filtration Rate 47.8, Glucose Level 160H, Calcium Level 7.9L, Phosphorus Level 3.9, Magnesium Level 2.3, Total Bilirubin 1.1H, Direct Bilirubin 0.2, Aspartate Amino Transf (AST/SGOT) 45H, Alanine Aminotransferase (ALT/SGPT) 39, Alkaline Phosphatase 67, C-Reactive Protein, Quantitative 4.9H, Total Protein 5.8L, Albumin 1.8L, Globulin 4.0, Albumin/Globulin Ratio 0.4L Height (Feet): 5 Height (Inches): 6.00 Weight (Pounds): 115 General Appearance: no apparent distress, lethargic Cardiovascular: normal rate Respiratory/Chest: decreased breath sounds Abdomen: soft, distended Objective No change Vin Otero MD Dec 18, 2019 10:52
--- NOTE | 2019-12-18 11:16 | Infectious Diseases Prog Note ---
Assessment/Plan Assessment: COVID19 neg x1 (12/01 rapid COVID PCR neg) Cdiff colitis -12/10 Cdif toxin a/ab + UTI, SP rx -u/a wbc tnct, nit neg, leuk +3; ucx >100k ESBL K. pna Low grade fever x1 Leukocytosis; recurrent- SP -12/10 u/a no pyuria CXR: no acute process -12/01 Bcx NTD Probable PNA -12/04 CXR: no acute process -12/01 CXR: Obscured left hemidiaphragm, could indicate pleural fluid and/orparenchymal consolidation/atelectasis. Correlate with clinical findings Acute encephalopathy/facial droop- Multifocal infarcts -12/08 MRI/MRA head/neck: No MRI evidence of proximal intracranial cerebrovascular insufficiency -12/01 Brain MRI wo: Multifocal infarcts the largest of which are located within the norberto left of midline as well as the left frontal lobe medially. Multifocal lacunar infarcts are noted scattered bilaterally including the cerebellar hemispheres and the left cerebellar peduncle. Age-related changes. CT head wo: Age-related atrophy and small vessel disease of aging, similar to that noted on the previous study. No acute intracranial pathology. If there is concern for etiology such as early acute lacunar infarcts, magnetic resonance imaging of the brain with diffusion-weighted sequences should be performed for follow-up FRANKY on CKD, worsened, now improvnig -REnal US: Small kidneys bilaterally. No evidence of hydronephrosis. Empty bladder with a Vela catheter. Incidental finding left renal cyst. 12/08 SP EGD/PEG placement R hip pain -R hip CT: No evidence of acute bony trauma or significant soft tissue trauma. Rectal fecal impaction. Colonic diverticulosis Dm2 HTN HLD colon CA sp treatment Alzheimer's dementia fall w/ resultant [facility] resident ([facility]) Plan: -PO Vancomycin 125mg qid #10/09 -12/08 SP Meropenem #7 -12/08/19 SP Vancomycin #4 -12/02 Sp Aztreonam #1 -12/01 SP Ceftriaxone x1 -f/u cx -Monitor CBC/CMP, temperatures -aspiration precautions -PEG care -Cdiff contact isolation Thank you for this consultation. Will continue to follow along with you. Discussed with RN. Subjective Allergies: Coded Allergies: ATENOLOL (Verified Allergy, Unknown, 05/23/16) LOSARTAN (Verified Allergy, Unknown, 05/23/16) SIMVASTATIN (Verified Allergy, Unknown, 05/23/16) Uncoded Allergies: AMLIODIPINE (Allergy, Unknown, 05/23/16) PENICILLIN (Allergy, Unknown, 12/03/19) Tolerated Ceftriaxone on 12/02/19 afebrile no leukocytosis Per RN, no diarrhea Objective Last 24 Hour Vital Signs Date Time Temp Pulse Resp B/P (MAP) Pulse Ox O2 Delivery O2 Flow Rate FiO2 12/18/19 09:00 Room Air 12/18/19 08:00 97.1 82 17 109/53 (71) 96 12/18/19 04:00 97.2 72 20 119/60 (79) 95 12/18/19 00:00 96.6 79 20 109/52 (71) 96 12/17/19 20:00 96.8 78 20 107/49 (68) 95 12/17/19 16:00 99.5 89 18 105/56 (72) 95 12/17/19 12:00 98.8 86 18 110/53 (72) 94 Height (Feet): 5 Height (Inches): 6.00 Weight (Pounds): 115 General Appearance: no apparent distress Cardiovascular: normal rate Respiratory/Chest: lungs clear Abdomen: normal bowel sounds, non tender, soft Extremities: no swelling Laboratory Tests Test 12/18/19 06:00 White Blood Count 9.9 K/UL (4.8-10.8) Red Blood Count 3.74 M/UL (4.70-6.10) L Hemoglobin 10.1 G/DL (14.2-18.0) #L Hematocrit 31.7 % (42.0-52.0) #L Mean Corpuscular Volume 85 FL (80-99) Mean Corpuscular Hemoglobin 27.1 PG (27.0-31.0) Mean Corpuscular Hemoglobin Concent 31.9 G/DL (32.0-36.0) L Red Cell Distribution Width 13.1 % (11.6-14.8) Platelet Count 411 K/UL (150-450) Mean Platelet Volume 5.3 FL (6.5-10.1) L Neutrophils (%) (Auto) 80.5 % (45.0-75.0) H Lymphocytes (%) (Auto) 10.4 % (20.0-45.0) L Monocytes (%) (Auto) 7.6 % (1.0-10.0) Eosinophils (%) (Auto) 0.9 % (0.0-3.0) Basophils (%) (Auto) 0.6 % (0.0-2.0) Erythrocyte Sedimentation Rate 84 MM/HR (0-20) H Sodium Level 144 MMOL/L (136-145) Potassium Level 4.3 MMOL/L (3.5-5.1) Chloride Level 107 MMOL/L (98-107) Carbon Dioxide Level 29 MMOL/L (21-32) Anion Gap 8 mmol/L (5-15) Blood Urea Nitrogen 59 mg/dL (7-18) H Creatinine 1.4 MG/DL (0.55-1.30) H Estimat Glomerular Filtration Rate 47.8 mL/min (>60) Glucose Level 160 MG/DL (74-106) H Calcium Level 7.9 MG/DL (8.5-10.1) L Phosphorus Level 3.9 MG/DL (2.5-4.9) Magnesium Level 2.3 MG/DL (1.8-2.4) Total Bilirubin 1.1 MG/DL (0.2-1.0) H Direct Bilirubin 0.2 MG/DL (0.0-0.3) Aspartate Amino Transf (AST/SGOT) 45 U/L (15-37) H Alanine Aminotransferase (ALT/SGPT) 39 U/L (12-78) Alkaline Phosphatase 67 U/L (46-116) C-Reactive Protein, Quantitative 4.9 mg/dL (0.00-0.90) H Total Protein 5.8 G/DL (6.4-8.2) L Albumin 1.8 G/DL (3.4-5.0) L Globulin 4.0 g/dL Albumin/Globulin Ratio 0.4 (1.0-2.7) L Current Medications Medications (Trade) Dose Ordered Sig/James Route PRN Reason Start Time Stop Time Status Last Admin Dose Admin Acetaminophen (Tylenol) 650 mg Q4H PRN ORAL fever 12/03/19 18:48 01/02/20 18:47 Apixaban (Eliquis) 2.5 mg BID ORAL 12/05/19 09:00 03/04/20 08:59 12/18/19 09:16 Clonidine HCl (Catapres Tab) 0.1 mg Q4H PRN ORAL For High Blood Pressure 12/03/19 19:15 03/01/20 19:14 Dextrose (Dextrose 50%) 25 ml Q30M PRN IV Hypoglycemia 12/03/19 18:45 03/01/20 19:14 Dextrose (Dextrose 50%) 50 ml Q30M PRN IV Hypoglycemia 12/03/19 18:45 03/01/20 19:14 Escitalopram Oxalate (Lexapro) 10 mg DAILY ORAL 12/04/19 09:00 01/02/20 08:59 12/18/19 09:16 Folic Acid (Folate) 2 mg DAILY NG 12/05/19 09:00 01/04/20 08:59 12/18/19 09:16 Insulin Aspart (NovoLOG) EVERY 6 HOURS SUBQ 12/16/19 00:00 03/01/20 20:59 12/17/19 17:49 Nitroglycerin (Ntg) 0.4 mg Q5M X 3 DOSES PRN SL Prn Chest Pain 12/03/19 18:45 01/01/20 19:14 Ondansetron HCl (Zofran) 4 mg Q6H PRN IVP Nausea & Vomiting 12/03/19 19:15 01/01/20 19:14 Promethazine HCl/ Codeine (Phenergan with Codeine) 5 ml Q4H PRN ORAL For Cough 12/03/19 19:15 01/01/20 19:14 Vancomycin HCl (Firvanq) 125 mg FOUR TIMES A DAY GT 12/15/19 11:00 12/22/19 10:59 12/18/19 09:16 Velma Lopez M.D. Dec 18, 2019 11:16
[2019-12-18 12:00] VITALS: BP 110/59
--- NOTE | 2019-12-18 12:46 | Pulmonology Progress Note ---
Subjective ROS Limited/Unobtainable: Yes Constitutional: Reports: no symptoms HEENT: Repors: no symptoms Allergies: Coded Allergies: ATENOLOL (Verified Allergy, Unknown, 05/23/16) LOSARTAN (Verified Allergy, Unknown, 05/23/16) SIMVASTATIN (Verified Allergy, Unknown, 05/23/16) Uncoded Allergies: AMLIODIPINE (Allergy, Unknown, 05/23/16) PENICILLIN (Allergy, Unknown, 12/03/19) Tolerated Ceftriaxone on 12/02/19 Objective Last 24 Hour Vital Signs Date Time Temp Pulse Resp B/P (MAP) Pulse Ox O2 Delivery O2 Flow Rate FiO2 12/18/19 12:00 98.8 76 18 110/59 (76) 98 12/18/19 09:00 Room Air 12/18/19 08:00 97.1 82 17 109/53 (71) 96 12/18/19 04:00 97.2 72 20 119/60 (79) 95 12/18/19 00:00 96.6 79 20 109/52 (71) 96 12/17/19 20:00 96.8 78 20 107/49 (68) 95 12/17/19 16:00 99.5 89 18 105/56 (72) 95 Intake and Output 12/17/19 12/18/19 19:00 07:00 Intake Total 740 ml 695 ml Output Total 700 ml 500 ml Balance 40 ml 195 ml Intake Free Water 200 ml 200 ml Tube Feeding 540 ml 495 ml Output Urine Total 700 ml 500 ml General Appearance: cachetic HEENT: normocephalic, atraumatic Respiratory: chest wall non-tender, lungs clear, stridor Cardiovascular: normal peripheral pulses Abdomen: normal bowel sounds, soft, non tender Extremities: no cyanosis Skin: no ulcers Neurologic: no motor/sensory deficits Lymphatic: no neck adenopathy Laboratory Tests 12/18/19 06:00: White Blood Count 9.9, Red Blood Count 3.74L, Hemoglobin 10.1#L, Hematocrit 31.7#L, Mean Corpuscular Volume 85, Mean Corpuscular Hemoglobin 27.1, Mean Corpuscular Hemoglobin Concent 31.9L, Red Cell Distribution Width 13.1, Platelet Count 411, Mean Platelet Volume 5.3L, Neutrophils (%) (Auto) 80.5H, Lymphocytes (%) (Auto) 10.4L, Monocytes (%) (Auto) 7.6, Eosinophils (%) (Auto) 0.9, Basophils (%) (Auto) 0.6, Erythrocyte Sedimentation Rate 84H, Sodium Level 144, Potassium Level 4.3, Chloride Level 107, Carbon Dioxide Level 29, Anion Gap 8, Blood Urea Nitrogen 59H, Creatinine 1.4H, Estimat Glomerular Filtration Rate 47.8, Glucose Level 160H, Calcium Level 7.9L, Phosphorus Level 3.9, Magnesium Level 2.3, Total Bilirubin 1.1H, Direct Bilirubin 0.2, Aspartate Amino Transf (AST/SGOT) 45H, Alanine Aminotransferase (ALT/SGPT) 39, Alkaline Phosphatase 67, C-Reactive Protein, Quantitative 4.9H, Total Protein 5.8L, Albumin 1.8L, Globulin 4.0, Albumin/Globulin Ratio 0.4L Current Medications Medications (Trade) Dose Ordered Sig/James Route PRN Reason Start Time Stop Time Status Last Admin Dose Admin Acetaminophen (Tylenol) 650 mg Q4H PRN ORAL fever 12/03/19 18:48 01/02/20 18:47 Apixaban (Eliquis) 2.5 mg BID ORAL 12/05/19 09:00 03/04/20 08:59 12/18/19 09:16 Clonidine HCl (Catapres Tab) 0.1 mg Q4H PRN ORAL For High Blood Pressure 12/03/19 19:15 03/01/20 19:14 Dextrose (Dextrose 50%) 25 ml Q30M PRN IV Hypoglycemia 12/03/19 18:45 03/01/20 19:14 Dextrose (Dextrose 50%) 50 ml Q30M PRN IV Hypoglycemia 12/03/19 18:45 03/01/20 19:14 Escitalopram Oxalate (Lexapro) 10 mg DAILY ORAL 12/04/19 09:00 01/02/20 08:59 12/18/19 09:16 Folic Acid (Folate) 2 mg DAILY NG 12/05/19 09:00 01/04/20 08:59 12/18/19 09:16 Insulin Aspart (NovoLOG) EVERY 6 HOURS SUBQ 12/16/19 00:00 03/01/20 20:59 12/17/19 17:49 Nitroglycerin (Ntg) 0.4 mg Q5M X 3 DOSES PRN SL Prn Chest Pain 12/03/19 18:45 01/01/20 19:14 Ondansetron HCl (Zofran) 4 mg Q6H PRN IVP Nausea & Vomiting 12/03/19 19:15 01/01/20 19:14 Promethazine HCl/ Codeine (Phenergan with Codeine) 5 ml Q4H PRN ORAL For Cough 12/03/19 19:15 01/01/20 19:14 Vancomycin HCl (Firvanq) 125 mg FOUR TIMES A DAY GT 12/15/19 11:00 12/22/19 10:59 12/18/19 09:16 Assessment/Plan Problems: (1) Altered level of consciousness (2) UTI (urinary tract infection) (3) Severe protein-calorie malnutrition (4) History of diabetes mellitus (5) History of hypertension (6) Alzheimer's dementia (7) Unilateral weakness (8) Subdural hematoma (9) Colon cancer Assessment/Plan s/p prbc, h/h better large amount of diarrhea no new com [place] looks hs usual chronically ill self cxr reviewed 12/14: no acute changes Urine has GNB, MDR Klebsiella Abx as per ID: flagyl and Vancomycin f/u electrolytes swallow study reviewed. swallow evaluation pending Neurology note appreciated Cherelle Vera MD Dec 18, 2019 12:45
--- NOTE | 2019-12-18 14:01 | General Progress Note ---
Subjective ROS Limited/Unobtainable: No Allergies: Coded Allergies: ATENOLOL (Verified Allergy, Unknown, 05/23/16) LOSARTAN (Verified Allergy, Unknown, 05/23/16) SIMVASTATIN (Verified Allergy, Unknown, 05/23/16) Uncoded Allergies: AMLIODIPINE (Allergy, Unknown, 05/23/16) PENICILLIN (Allergy, Unknown, 12/03/19) Tolerated Ceftriaxone on 12/02/19 Objective Last 24 Hour Vital Signs Date Time Temp Pulse Resp B/P (MAP) Pulse Ox O2 Delivery O2 Flow Rate FiO2 12/18/19 12:00 98.8 76 18 110/59 (76) 98 12/18/19 09:00 Room Air 12/18/19 08:00 97.1 82 17 109/53 (71) 96 12/18/19 04:00 97.2 72 20 119/60 (79) 95 12/18/19 00:00 96.6 79 20 109/52 (71) 96 12/17/19 20:00 96.8 78 20 107/49 (68) 95 12/17/19 16:00 99.5 89 18 105/56 (72) 95 Intake and Output 12/17/19 12/18/19 19:00 07:00 Intake Total 740 ml 695 ml Output Total 700 ml 500 ml Balance 40 ml 195 ml Intake Free Water 200 ml 200 ml Tube Feeding 540 ml 495 ml Output Urine Total 700 ml 500 ml Laboratory Tests 12/18/19 06:00: White Blood Count 9.9, Red Blood Count 3.74L, Hemoglobin 10.1#L, Hematocrit 31.7#L, Mean Corpuscular Volume 85, Mean Corpuscular Hemoglobin 27.1, Mean Corpuscular Hemoglobin Concent 31.9L, Red Cell Distribution Width 13.1, Platelet Count 411, Mean Platelet Volume 5.3L, Neutrophils (%) (Auto) 80.5H, Lymphocytes (%) (Auto) 10.4L, Monocytes (%) (Auto) 7.6, Eosinophils (%) (Auto) 0.9, Basophils (%) (Auto) 0.6, Erythrocyte Sedimentation Rate 84H, Sodium Level 144, Potassium Level 4.3, Chloride Level 107, Carbon Dioxide Level 29, Anion Gap 8, Blood Urea Nitrogen 59H, Creatinine 1.4H, Estimat Glomerular Filtration Rate 47.8, Glucose Level 160H, Calcium Level 7.9L, Phosphorus Level 3.9, Magnesium Level 2.3, Total Bilirubin 1.1H, Direct Bilirubin 0.2, Aspartate Amino Transf (AST/SGOT) 45H, Alanine Aminotransferase (ALT/SGPT) 39, Alkaline Phosphatase 67, C-Reactive Protein, Quantitative 4.9H, Total Protein 5.8L, Albumin 1.8L, Globulin 4.0, Albumin/Globulin Ratio 0.4L Height (Feet): 5 Height (Inches): 6.00 Weight (Pounds): 115 General Appearance: no apparent distress EENT: normal ENT inspection Neck: supple Cardiovascular: normal rate Respiratory/Chest: decreased breath sounds Abdomen: normal bowel sounds, non tender, soft Extremities: non-tender Assessment/Plan Assessment/Plan: anemia AMS dysphagia DM h/o colon ca RI C.diff positive s/p PEG GTF po vanco iv flagyl on eliquis fu labs Mamadou Johnson MD Dec 18, 2019 14:00
--- NOTE | 2019-12-18 14:53 | NUR ---
DISCHARGE PLANNING DR VIVAR GAVE TO/RB TO DC TO SNF. NOTED AND CARRIED OUT. CALL MADE TO [facility] TO CONFIRM BED ASSIGNMENT. PER SAMSON, [employer] MACHINE TENDER, PATIENT WILL ADMIT TO ROOM 12-4 SKILLED BLS AMBULANCE SCHEDULED WITH [facility] EXT [id number] WITH ETA @ 1700 PER MIMA
--- NOTE | 2019-12-18 15:43 | NUR ---
NURSE NOTES: There is a discharge order for this patient; I communicated the case management,Cassidy, who is handling this Patein's discharge; this case management said, she communicated MD Pineda regarding discharge medication and MD Pineda didn't give discharge medication order for this case management. Ambulance set up by this case management for this Patient; so far medication for discharge wasn't done.
[2019-12-18 16:00] VITALS: BP 103/54
--- NOTE | 2019-12-18 16:29 | NUR ---
NURSE NOTES: Left message with Adriane at Dr. Darren Spencer's office requesting discharge medication reconciliation, and concern about whether to continue Vela catheter and Rectal Tube or discontinue.
--- NOTE | 2019-12-18 17:46 | NUR ---
NURSE NOTES: [facility] called and indicated they will be delayed and should arrive between 1830 and 1845.
--- NOTE | 2019-12-18 18:51 | NUR ---
NURSE NOTES: Telephone report given to AUGUST Burton at [facility]; Per MD Loera, rectal tube, Vela catheter is removed; Wound care provided and pictures taken and uploaded on patient's chart;
--- NOTE | 2019-12-18 19:07 | NUR ---
HAND-OFF: Report given to ELLI Pierce. Discharge paper work given to the incoming nurse; patient stable, resting;
--- NOTE | 2019-12-18 19:20 | NUR ---
NURSE NOTES: Received report from maximo alvares. patient is on bed, awake. denies any pain or discomfort. with 2 iv lines on the left forearm, saline lock. with gt feeding of glucerna 1.2 @ 45 ml/hr. patient is for discharge today to [facility]. per giorgio, " she discontinued hamlin catheter and rectal tube." giorgio gave report to blanquita anaya in snf. all discharge papers are done. with lower denture as his belongings. call light and light button within easy reach. bed locked and in lowest position.will continue plan of care.
--- NOTE | 2019-12-18 19:30 | NUR ---
NURSE NOTES: followes up [facility] for [facility]. per coleen, 20 mins delay for their arrival. charge nurse made aware.
[2019-12-18 20:00] VITALS: BP 120/62
--- NOTE | 2019-12-18 20:06 | Internal Med Progress Note ---
Subjective Date of Service: Dec 18, 2019 Physician Name MiriamDarren Attending Physician Darren Spencer MD Current Medications Medications (Trade) Dose Ordered Sig/James Route PRN Reason Start Time Stop Time Status Last Admin Dose Admin Acetaminophen (Tylenol) 650 mg Q4H PRN ORAL fever 12/03/19 18:48 01/02/20 18:47 Apixaban (Eliquis) 2.5 mg BID ORAL 12/05/19 09:00 03/04/20 08:59 12/18/19 17:18 Clonidine HCl (Catapres Tab) 0.1 mg Q4H PRN ORAL For High Blood Pressure 12/03/19 19:15 03/01/20 19:14 Dextrose (Dextrose 50%) 25 ml Q30M PRN IV Hypoglycemia 12/03/19 18:45 03/01/20 19:14 Dextrose (Dextrose 50%) 50 ml Q30M PRN IV Hypoglycemia 12/03/19 18:45 03/01/20 19:14 Escitalopram Oxalate (Lexapro) 10 mg DAILY ORAL 12/04/19 09:00 01/02/20 08:59 12/18/19 09:16 Folic Acid (Folate) 2 mg DAILY NG 12/05/19 09:00 01/04/20 08:59 12/18/19 09:16 Insulin Aspart (NovoLOG) EVERY 6 HOURS SUBQ 12/16/19 00:00 03/01/20 20:59 12/18/19 18:11 Nitroglycerin (Ntg) 0.4 mg Q5M X 3 DOSES PRN SL Prn Chest Pain 12/03/19 18:45 01/01/20 19:14 Ondansetron HCl (Zofran) 4 mg Q6H PRN IVP Nausea & Vomiting 12/03/19 19:15 01/01/20 19:14 Promethazine HCl/ Codeine (Phenergan with Codeine) 5 ml Q4H PRN ORAL For Cough 12/03/19 19:15 01/01/20 19:14 Vancomycin HCl (Firvanq) 125 mg FOUR TIMES A DAY GT 12/15/19 11:00 12/22/19 10:59 12/18/19 17:19 Allergies: Coded Allergies: ATENOLOL (Verified Allergy, Unknown, 05/23/16) LOSARTAN (Verified Allergy, Unknown, 05/23/16) SIMVASTATIN (Verified Allergy, Unknown, 05/23/16) Uncoded Allergies: AMLIODIPINE (Allergy, Unknown, 05/23/16) PENICILLIN (Allergy, Unknown, 12/03/19) Tolerated Ceftriaxone on 12/02/19 ROS Limited/Unobtainable: Yes Subjective 89 YO M admitted with atlered mental status. Now UTI. Cover for Int Gadiel-DR Spencer. S/P colonoscopy/EGD 12/09/19 Objective Last Vital Signs Date Time Temp Pulse Resp B/P (MAP) Pulse Ox O2 Delivery O2 Flow Rate FiO2 12/18/19 16:00 97.8 75 17 103/54 (70) 97 12/18/19 09:00 Room Air 12/11/19 07:00 21 12/09/19 13:40 3 Laboratory Tests Test 12/18/19 06:00 White Blood Count 9.9 K/UL (4.8-10.8) Red Blood Count 3.74 M/UL (4.70-6.10) L Hemoglobin 10.1 G/DL (14.2-18.0) #L Hematocrit 31.7 % (42.0-52.0) #L Mean Corpuscular Volume 85 FL (80-99) Mean Corpuscular Hemoglobin 27.1 PG (27.0-31.0) Mean Corpuscular Hemoglobin Concent 31.9 G/DL (32.0-36.0) L Red Cell Distribution Width 13.1 % (11.6-14.8) Platelet Count 411 K/UL (150-450) Mean Platelet Volume 5.3 FL (6.5-10.1) L Neutrophils (%) (Auto) 80.5 % (45.0-75.0) H Lymphocytes (%) (Auto) 10.4 % (20.0-45.0) L Monocytes (%) (Auto) 7.6 % (1.0-10.0) Eosinophils (%) (Auto) 0.9 % (0.0-3.0) Basophils (%) (Auto) 0.6 % (0.0-2.0) Erythrocyte Sedimentation Rate 84 MM/HR (0-20) H Sodium Level 144 MMOL/L (136-145) Potassium Level 4.3 MMOL/L (3.5-5.1) Chloride Level 107 MMOL/L (98-107) Carbon Dioxide Level 29 MMOL/L (21-32) Anion Gap 8 mmol/L (5-15) Blood Urea Nitrogen 59 mg/dL (7-18) H Creatinine 1.4 MG/DL (0.55-1.30) H Estimat Glomerular Filtration Rate 47.8 mL/min (>60) Glucose Level 160 MG/DL (74-106) H Calcium Level 7.9 MG/DL (8.5-10.1) L Phosphorus Level 3.9 MG/DL (2.5-4.9) Magnesium Level 2.3 MG/DL (1.8-2.4) Total Bilirubin 1.1 MG/DL (0.2-1.0) H Direct Bilirubin 0.2 MG/DL (0.0-0.3) Aspartate Amino Transf (AST/SGOT) 45 U/L (15-37) H Alanine Aminotransferase (ALT/SGPT) 39 U/L (12-78) Alkaline Phosphatase 67 U/L (46-116) C-Reactive Protein, Quantitative 4.9 mg/dL (0.00-0.90) H Total Protein 5.8 G/DL (6.4-8.2) L Albumin 1.8 G/DL (3.4-5.0) L Globulin 4.0 g/dL Albumin/Globulin Ratio 0.4 (1.0-2.7) L Intake and Output 12/17/19 12/18/19 19:00 07:00 Intake Total 740 ml 740 ml Output Total 700 ml 500 ml Balance 40 ml 240 ml Intake Free Water 200 ml 200 ml Tube Feeding 540 ml 540 ml Output Urine Total 700 ml 500 ml Objective Objective GENERAL: open eyes more responsive, cachectic, chronic ill appearing. HEENT: Pupils equal and reactive to light, anicteric, NG tube. NECK: Supple. No JVD. LUNGS: Fair bilateral air entry. No wheezing, rhonchi. Decreased air in the bases. HEART: S1, S2. Distant heart sounds. No murmur or gallop. ABDOMEN: Soft, nondistended, nontender. No rebound tenderness. No fluid shift. : Vela cath. EXTREMITIES: No cyanosis, clubbing, or edema. Muscle atrophy to bilateral lower extremities noted. NEUROLOGIC: Cranial nerves II to XII grossly intact, motor right side is weaker than left side. RECTAL/GENITOURINARY: Refused and deferred PSYCHIATRIC: Mood and affect unable to obtain secondary to the patient's status. Assessment/Plan Assessment/Plan Assessment/Plan Assessment/Plan ASSESSMENT: 1. Acute encephalopathy, most likely secondary to toxic metabolic encephalopathy as well as acute CVA. 2. Acute ESBL Klebsiella urinary tract infection. 3. Diabetes type 2. 4. Acute kidney injury, on chronic renal insufficiency. 5. Multifocal infarction, confirmed on MRI. 6. Hypertension. 7. Dyslipidemia. 8. Colon cancer, status post resection. 9. Alzheimer dementia. 10. History of fall with subdural hematoma, resolved. 11. Severe protein-calorie malnutrition. 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 13. C. Diff colitis 14. Dysphagia PLAN: In telemetry. Follow up with laboratory and culture. Abx: oral vanco and IV flagyl; S/P Meropenem. ID consultation, Dr. Lopez, pulmonary consultation, Dr. Vera, Cardiology consultation with Dr. Beka Saleh, Nephrology consultation with Dr. Vin Otero. Code status: Full code. DVT prophylaxis: Eliquis. Tolerated Tube feeding @ 50 cc/hr. S/P endoscopy/colonoscopy/PEG 12/09/19 Darren Pineda MD Dec 18, 2019 20:06
--- NOTE | 2019-12-18 20:50 | NUR ---
NURSE NOTES: [facility] came and picked up the patient to [facility]. iv line and id band discontinued. lower denture was given to the EMT'S. charge nurse made aware.
--- NOTE | 2019-12-22 11:55 | Discharge Summary ---
Discharge Summary Discharge Summary _ DATE OF ADMISSION: 12/02/2019 DATE OF DISCHARGE: 12/18/2019 DISCHARGED BY: Dr. Spencer REASON FOR ADMISSION: 89 years old male with past medical history significant for diabetes mellitus type 2, hypertension, dyslipidemia, colon cancer, status post treatment, Alzheimer dementia, history of fall with subdural hematoma, resident of assisted facility , was sent for evaluation due to altered mental status with associated new facial droop. In emergency department CT of the head revealed age-related atrophy and small vessel disease of aging , no acute intracranial pathology. Patient subsequently undergone MRI of the brain, which revealed multifocal infarcts: the largest of which were located within the norberto left of midline as well as the left frontal lobe medially. Multifocal lacunar infarcts noted as well. scattered bilaterally, including the cerebellar hemisphere and the left cerebellar peduncle. Age-related changes noted as well. Laboratory work-up revealed evidence of renal failure with BUN 63, creatinine 1.8. Stable electrolytes and LFT. Glucose 169. Albumin 2.9. Urinalysis revealed +2 protein , +3 leukocyte esterase ,pyuria and many bacteria. CBC showed leukocytosis WBC 12, hemoglobin 11.7 , hematocrit 37.2. Lactic acid 1.9. Troponin 0.216 Ammonia 13. Rapid COVID-19 was negative Chest x-ray showed obscured left hemidiaphragm, potentially indication pleural fluid and/or parenchymal consolidation/atelectasis. Patient subsequently admitted for further management. CONSULTANTS: global program manager Dr. Saleh neurologist Dr. Villanueva pulmonary Dr. Vera ID specialist Dr. Lopez GI specialist dr Johnson machine shop instructor Dr. [facility]tero [facility]: Patient initially admitted to stepdown unit. Patient started on broad-spectrum antibiotic , further optimized as per ID specialist recommendation. Carotid duplex revealed less than 50% stenosis bilaterally. Echocardiogram revealed preserved ejection fraction of 55% with mild left ventricular hypertrophy. Moderate aortic regurgitation, moderate mitral regurgitation. Right ventricular systolic pressure of 10. Lipid panel revealed was stable. TSH within normal limits. MRI/MRA of the head and neck revealed no MRI evidence of proximal intracranial cerebrovascular insufficiency. Neurologist initially recommended dual antiplatelet therapy, which initiated, On 12/04 dual antiplatelet therapy was discontinue, and patient started on Eliquis. Serial troponin trended down : last troponin 0.131. EKG revealed no ischemic changes. Elevated troponin were likely due to renal failure. Blood cultures were negative. Urine culture revealed Klebsiella pneumonia ESBL. Patient completed treatment for UTI while in the hospital. Stool for C. difficile was positive . Patient was on oral Vanco and IV Flagyl. Leukocytosis initially trended up, but eventually resolved. Supplemental oxygen provided and titrated to keep pulse oximetry above 92%. Pulmonary toilet provided. Patient was followed-up with chest x-ray. Hemoglobin and hematocrit were closely monitored to keep hemoglobin above 7. Patient undergone transfusion of 1 unit of packed red blood cells. Anemia work-up was consistent with anemia of iron deficiency. Also noted low folate deficiency Folic acid supplement provided. Patient will be started on iron supplement at the facility with close monitoring of ferritin. Prior to discharge hemoglobin 10.1, hematocrit 31.7. Stool for occult blood was negative. Renal parameters and electrolytes were closely monitored. Electrolytes corrected as needed. Renal ultrasound revealed no evidence of hydronephrosis. Normal bilateral kidney echogenicity. Patient was hydrated. Nephrotoxic's were avoided. Prior to discharge creatinine down to 1.4 the highest being 2.0. Bedside swallow evaluation revealed high risk for aspiration. Speech therapist recommended n.p.o. Patient initially had NGT for feeding. Subsequently patient undergone upper endoscopy with PEG placement. Tube feeding formula with goal rate and protein supplements provided as per registered dietitian recommendation. Strict aspiration precaution maintained. Patient complained of right hip pain. Right hip x-ray revealed no definite right hip fracture. Deformity of the right femoral neck noted. Subsequently CT of the right hip was done to exclude occult fracture , which re vealed no evidence of acute bony trauma or significant soft tissue trauma. Rectal fecal impaction noted. Bowel regimen instituted. Patient presented on admission with multiply pressure injuries. Wound care provided as per surgeon recommendation. Continue wound care at the facility. Patient clinically stabilized and was ready for transfer back to the assisted facility for continuation of care FINAL DIAGNOSES: Acute toxic metabolic encephalopathy Cerebrovascular disease with multiple multifocal infarcts with probable acute CVA Acute UTI with Klebsiella ESBL, status post treatment Probable pneumonia C. difficile colitis Acute kidney injury on chronic renal insufficiency-improved Diabetes mellitus type 2 Hypertension Hyperlipidemia Colon cancer, status post treatment Dysphagia Status post PEG placement Alzheimer dementia Multi-infarct dementia History of fall with subdural hematoma - resolved Severe protein calorie malnutrition Anemia of iron deficiency Folate deficiency Severe protein calorie malnutrition Decubitus skin ulcer, present on admission DISCHARGE MEDICATIONS: List of medication was sent to accepting facility DISCHARGE INSTRUCTIONS: Patient was discharged to the assisted facility. Follow up with medical doctor at the facility. I have been assigned to dictate discharge summary for this account. I was not involved in the patient's management. Lenora Love NP Dec 22, 2019 11:55
== END 2019-12-18 20:50 | DRG 64 ==
LOC: EDBD 18:19 → EMR 18:40 → 2W 18:54 → EDBEDREQ 19:02 → 2E 12-03 18:24 → 4E 12-16 16:00
PROC: 0DH63UZ Insertion of Feeding Device into Stomach, Percutaneous Approach (ICD-10-PCS; principal; 2019-12-09 12:56)
DX: I63.89 Other cerebral infarction (principal); E43 Unspecified severe protein-calorie malnutrition; G92 Toxic encephalopathy; J18.9 Pneumonia, unspecified organism; N17.9 Acute kidney failure, unspecified; N39.0 Urinary tract infection, site not specified; Z68.1 Body mass index [BMI] 19.9 or less, adult; A04.72 Enterocolitis due to Clostridium difficile, not specified as recurrent; E87.0 Hyperosmolality and hypernatremia; E86.0 Dehydration; I12.9 Hypertensive chronic kidney disease with stage 1 through stage 4 chronic kidney disease, or unspecified chronic kidney disease; N18.9 Chronic kidney disease, unspecified; K29.70 Gastritis, unspecified, without bleeding; K26.9 Duodenal ulcer, unspecified as acute or chronic, without hemorrhage or perforation; I69.392 Facial weakness following cerebral infarction; E11.22 Type 2 diabetes mellitus with diabetic chronic kidney disease; L89.90 Pressure ulcer of unspecified site, unspecified stage; E78.5 Hyperlipidemia, unspecified; Z85.038 Personal history of other malignant neoplasm of large intestine; N40.0 Benign prostatic hyperplasia without lower urinary tract symptoms; G30.9 Alzheimer's disease, unspecified; F02.80 Dementia in other diseases classified elsewhere, unspecified severity, without behavioral disturbance, psychotic disturbance, mood disturbance, and anxiety; F01.50 Vascular dementia, unspecified severity, without behavioral disturbance, psychotic disturbance, mood disturbance, and anxiety; M25.551 Pain in right hip; R13.10 Dysphagia, unspecified; D50.9 Iron deficiency anemia, unspecified; E53.8 Deficiency of other specified B group vitamins; Z20.828 Contact with and (suspected) exposure to other viral communicable diseases
CPT/HCPCS: 36415; 70450; 70544; 70551; 71045; 74018; 76770; 80048; 80053; 80061; 80202; 81001; 81003; 82140; 82248; 82270; 82378; 82550; 82553; 82607; 82728; 82746; 82962; 82977; 83036; 83540; 83550; 83605; 83735; 83880; 84100; 84300; 84443; 84484; 84550; 85007; 85025; 85610; 85651; 85730; 86140; 86592; 86850; 86900; 86901; 86920; 87040; 87081; 87086; 87181; 87324; 92610; 93005; 93306; 93880; 93926; 93931; 94003; 94150; 94664; 96365; 96375; 99291; J1815; J7030; U0002